=== PATIENT | female | born 1985 | race Caucasian/White ===

== ENCOUNTER 2019-05-19 09:50 | Emergency (ER) | payer BC ==
[~2019-05-19] VITALS: Ht 162.6 cm; Wt 65.8 kg
[2019-05-19 10:36] VITALS: BP 145/90
[2019-05-19] MEDS ORDERED: LIDOCAINE WITH 8.4% SOD BICARB 3 ML DISP.SYRIN. INJ ONE (11:00)
[2019-05-19] MEDS ORDERED: HYDROcodone/APAP 5/325MG 1 TAB TABLET PO ONE (11:00)
[2019-05-19] MEDS ORDERED: DIPHTH,PERTUSS(ACELL),TET TOX 0.5 ML DISP.SYRIN. VAX IM ONE (11:00)
[2019-05-19] MEDS ORDERED: HYDR-3164 PO (11:57)
[2019-05-19] MEDS ORDERED: SULF1TAB24 PO (11:57)
--- NOTE | 2019-05-19 11:57 | PHYS DOC ---
Past Medical History Past Medical History: No Pertinent History Past Surgical History: Cholecystectomy Alcohol Use: None Drug Use: None Adult General Chief Complaint Chief Complaint: ABSCESS HPI HPI Patient is a 34 year old female who presents with an abscess on the left pubic region that began 2 days ago. Patient denies any fever. Review of Systems Review of Systems Constitutional: Denies fever or chills [] Musculoskeletal: Denies back pain or joint pain [] Integument: Left groin abscess Neurologic: Denies headache, focal weakness or sensory changes [] All other systems were reviewed and found to be within normal limits, except as documented in this note. Current Medications Current Medications Current Medications Medications (Trade) Dose Ordered Sig/Kwaku Start Time Stop Time Status Last Admin Dose Admin Acetaminophen/ Hydrocodone Bitart (Lortab 5/325) 2 tab 1X ONCE 05/19/19 11:00 05/19/19 11:01 DC 05/19/19 11:07 2 TAB Diphtheria/ Tetanus/Acell Pertussis (Boostrix) 0.5 ml ONCE ONCE 05/19/19 11:00 05/19/19 11:01 DC 05/19/19 11:07 0.5 ML Lidocaine/Sodium Bicarbonate (Buffered Lidocaine 1%) 3 ml 1X ONCE 05/19/19 11:00 05/19/19 11:01 DC 05/19/19 11:07 3 ML Allergies Allergies Allergies Coded Allergies Type Severity Reaction Last Updated Verified No Known Drug Allergies 05/19/19 No Physical Exam Physical Exam Constitutional: Well developed, well nourished, no acute distress, non-toxic a ppearance. [] Skin: Warm, left pubic region with an area of induration approximately 2 x 2 centimeters with surrounding approximately 2 cm of cellulitis. The area is warm tender to touch and has some fluctuance to it. Extremities: No tenderness, no cyanosis, no clubbing, ROM intact, no edema. [] Neurologic: Alert and oriented X 3, normal motor function, normal sensory function, no focal deficits noted. [] Psychologic: Affect normal, judgement normal, mood normal. [] Current Patient Data Vital Signs Vital Signs Date Time Temp Pulse Resp B/P (MAP) Pulse Ox O2 Delivery O2 Flow Rate FiO2 05/19/19 11:07 18 99 Room Air 05/19/19 10:36 98.4 79 145/90 (108) 98.4 EKG EKG [] Radiology/Procedures Radiology/Procedures Indication: abscess left pubic Procedure: The patient was positioned appropriately. Local anesthesia was 1% buffered lidocaine. An 18-gauge needle was used to aspirate the area, mild amount of yellow bloody material was drained. The drainage cavity was irrigated and covered with sterile gauze. The patient�s tetanus status updated as needed. The patient tolerated the procedure well. Complications: none.[] Course & Med Decision Making Course & Med Decision Making Pertinent Labs and Imaging studies reviewed. (See chart for details) This is a 34-year-old female patient who presents to the ED today with an abscess on the left pubic region that was drained by me as noted in procedures. Wound care instructions and return precautions provided. Discharged on Bactrim. Tetanus updated. Dragon Disclaimer Dragon Disclaimer This electronic medical record was generated, in whole or in part, using a voice recognition dictation system. Departure Departure Impression: Primary Impression: Ingrown hair Additional Impression: Abscess of pubic region Disposition: 01 HOME, SELF-CARE Condition: STABLE Referrals: CAROLYN BROWN M.D. (PCP) follow up in 1-2 weeks as needed Patient Instructions: Abscess, Care After Additional Instructions: -Your abscess was drained in the emergency room -Keep the area clean and dry -Apply warm compresses to the area twice a day -Complete your antibiotics -Follow-up with your doctor in 1-2 weeks as needed -Return to the emergency room at any point symptoms worsen Scripts Hydrocodone/Apap 5-325 (NORCO 5-325 TABLET) 1 Each Tablet 1 TAB PO Q6-8HRS PRN for PAIN MDD 8, #12 TAB Prov: DHRUV LEGGETT APRN 05/19/19 Sulfamethoxazole/Trimethoprim (BACTRIM DS TABLET) 1 Each Tablet 1 TAB PO BID, #20 TAB Prov: DHRUV LEGGETT APRN 05/19/19 Problem Qualifiers DHRUV LEGGETT APRN May 19, 2019 11:57
== END 2019-05-19 12:06 | disposition home or self-care (01) ==
LOC: ER 09:50
DX: L02.214 Cutaneous abscess of groin (principal); L73.1 Pseudofolliculitis barbae; Z90.49 Acquired absence of other specified parts of digestive tract
CPT/HCPCS: 10060; 90471; 90715; 99283

== ENCOUNTER 2019-05-26 18:52 | Inpatient (IN) | payer BC, OTHER ==
[~2019-05-26] VITALS: Ht 162.6 cm; Wt 65.8 kg
[~2019-05-26 18:52] MED LIST: HYDR-3164 PO; SULF1TAB24 PO
[2019-05-26] MEDS ORDERED: IV NORMAL SALINE 1000ML BAG 1,650 ML IV SCH (19:25)
[2019-05-26] MEDS: PIPERACILLIN/TAZOBACTAM 4.5 GM in IV NORMAL SALINE 100ML 100 ML IV ONE ×2 (19:30→20:16)
[2019-05-26] MEDS ORDERED: MORPHINE SULFATE 2 MG/ML VIAL. IV/SQ PRN (19:30)
[2019-05-26] MEDS ORDERED: VANCOMYCIN PER PHARMACY MC PRN (19:30)
[2019-05-26 19:52] LABS: BASO # 0.1 x10^3/uL (0.0-0.2); BASO % 1 % (0-3); EOS % 0 % (0-3); HEMATOCRIT 39.4 % (36.0-47.0); HEMOGLOBIN 13.7 g/dL (12.0-15.5); LYMPH # 3.9 x10^3/uL (1.0-4.8); LYMPH % 23 % (24-48); MEAN CORPUSCULAR HEMOGLOBIN 35 pg (25-35); MEAN CORPUSCULAR HGB CONC 35 g/dL (31-37); MEAN CORPUSCULAR VOLUME 99 fL (79-100); MONO % 6 % (0-9); NEUT # 11.7 x10^3/uL (1.8-7.7); NEUT % 70 % (31-73); PLATELET COUNT 362 x10^3/uL (140-400); RED BLOOD COUNT 3.98 x10^6/uL (3.50-5.40); RED CELL DISTRIBUTION WIDTH 15.6 % (11.5-14.5); WHITE BLOOD COUNT 16.8 x10^3/uL (4.0-11.0)
[2019-05-26 20:05] LABS: ALBUMIN/GLOBULIN RATIO 0.9 (1.0-1.7); CALCIUM 9.4 mg/dL (8.5-10.1); CREATININE 0.9 mg/dL (0.6-1.0); GFR 71.3; TOTAL BILIRUBIN 0.4 mg/dL (0.2-1.0); TOTAL PROTEIN 8.5 g/dL (6.4-8.2)
[2019-05-26 20:07] LABS: POTASSIUM 2.8 mmol/L (3.5-5.1)
[2019-05-26] MEDS ORDERED: VANCOMYCIN 1.5 GM in IV NORMAL SALINE 500ML BAG 500 ML IV ONE (20:15)
[2019-05-26] MEDS ORDERED: POTASSIUM CHLORIDE 20 MEQ TABLET.ER. PO ONE (20:15)
[2019-05-26] MEDS ORDERED: ONDANSETRON PF 4 MG/2 ML VIAL. IV PRN (22:00)
[2019-05-26] MEDS ORDERED: ACETAMINOPHEN 325 MG TABLET. PO PRN (22:00)
--- NOTE | 2019-05-26 22:04 | PHYS DOC ---
Past Medical History Past Medical History: No Pertinent History Past Surgical History: Cholecystectomy Alcohol Use: None Drug Use: None Adult General Chief Complaint Chief Complaint: ABSCESS HPI HPI Patient is a 34 year old female who presents to the ED today with a worsening left groin abscess. Patient was seen in the ED a week ago the left groin abscess was drained, she was sent home on Bactrim she states the abscess has gotten worse. Denies any fever, n/v. Review of Systems Review of Systems Constitutional: Denies fever or chills [] Eyes: Denies change in visual acuity, redness, or eye pain [] HENT: Denies nasal congestion or sore throat [] Respiratory: Denies cough or shortness of breath [] Cardiovascular: No additional information not addressed in HPI [] GI: Denies abdominal pain, nausea, vomiting, bloody stools or diarrhea [] : Denies dysuria or hematuria [] Musculoskeletal: Denies back pain or joint pain [] Integument: Reports left groin abscess Neurologic: Denies headache, focal weakness or sensory changes [] All other systems were reviewed and found to be within normal limits, except as documented in this note. Current Medications Current Medications Current Medications Medications (Trade) Dose Ordered Sig/Kwaku Start Time Stop Time Status Last Admin Dose Admin Levofloxacin/ Dextrose 100 ml @ 100 mls/hr 1X ONCE 05/26/19 20:30 05/26/19 21:29 DC 05/26/19 20:37 100 MLS/HR Morphine Sulfate (Morphine Sulfate) 2 mg PRN Q15MIN PRN 05/26/19 19:30 05/27/19 19:29 05/26/19 20:18 2 MG Piperacillin Sod/ Tazobactam Sod 4.5 gm/Sodium Chloride 100 ml @ 200 mls/hr 1X ONCE 05/26/19 19:30 05/26/19 19:59 DC Potassium Chloride (Klor-Con) 40 meq 1X ONCE 05/26/19 20:15 05/26/19 20:16 DC 05/26/19 20:17 40 MEQ Sodium Chloride 1,650 ml @ 1,650 mls/hr Q1H 05/26/19 19:25 05/26/19 20:24 DC 05/26/19 20:17 1,650 MLS/HR Vancomycin HCl (Vanco Per Pharmacy) 1 each PRN DAILY PRN 05/26/19 19:30 Vancomycin HCl 1.5 gm/Sodium Chloride 500 ml @ 250 mls/hr 1X ONCE 05/26/19 20:15 05/26/19 22:14 05/26/19 21:45 250 MLS/HR Allergies Allergies Allergies Coded Allergies Type Severity Reaction Last Updated Verified Corticosteroids (Glucocorticoids) Allergy Severe facial swelling 05/26/19 Yes Penicillins Allergy Intermediate hives 05/26/19 Yes Physical Exam Physical Exam Constitutional: Well developed, well nourished, no acute distress, non-toxic appearance. [] HENT: Normocephalic, atraumatic, bilateral external ears normal, oropharynx moist, no oral exudates, nose normal. [] Eyes: PERRLA, EOMI, conjunctiva normal, no discharge. [] Neck: Normal range of motion, no tenderness, supple, no stridor. [] Cardiovascular:Heart rate regular rhythm, no murmur [] Lungs & Thorax: Bilateral breath sounds clear to auscultation [] Abdomen: Bowel sounds normal, soft, no tenderness, no masses, no pulsatile masses. [] Skin: Left groin with an area of induration and moderate cellulitis. The area is warm tender to touch. There is moderate erythema throughout this region with tenderness and some fluctuance. This abscess looks worse than it was when patient was here a week ago. Back: No tenderness, no CVA tenderness. [] Extremities: No tenderness, no cyanosis, no clubbing, ROM intact, no edema. [] Neurologic: Alert and oriented X 3, normal motor function, normal sensory function, no focal deficits noted. [] Psychologic: Affect normal, judgement normal, mood normal. [] Current Patient Data Vital Signs Vital Signs Date Time Temp Pulse Resp B/P (MAP) Pulse Ox O2 Delivery O2 Flow Rate FiO2 05/26/19 20:46 73 181/99 (126) 100 Room Air 05/26/19 19:00 98.0 18 98.0 Lab Values Laboratory Tests Test 05/26/19 19:40 White Blood Count 16.8 x10^3/uL (4.0-11.0) H Red Blood Count 3.98 x10^6/uL (3.50-5.40) Hemoglobin 13.7 g/dL (12.0-15.5) Hematocrit 39.4 % (36.0-47.0) Mean Corpuscular Volume 99 fL (79-100) Mean Corpuscular Hemoglobin 35 pg (25-35) Mean Corpuscular Hemoglobin Concent 35 g/dL (31-37) Red Cell Distribution Width 15.6 % (11.5-14.5) H Platelet Count 362 x10^3/uL (140-400) Neutrophils (%) (Auto) 70 % (31-73) Lymphocytes (%) (Auto) 23 % (24-48) L Monocytes (%) (Auto) 6 % (0-9) Eosinophils (%) (Auto) 0 % (0-3) Basophils (%) (Auto) 1 % (0-3) Neutrophils # (Auto) 11.7 x10^3/uL (1.8-7.7) H Lymphocytes # (Auto) 3.9 x10^3/uL (1.0-4.8) Monocytes # (Auto) 1.0 x10^3/uL (0.0-1.1) Eosinophils # (Auto) 0.0 x10^3/uL (0.0-0.7) Basophils # (Auto) 0.1 x10^3/uL (0.0-0.2) Sodium Level 137 mmol/L (136-145) Potassium Level 2.8 mmol/L (3.5-5.1) *L Chloride Level 95 mmol/L (98-107) L Carbon Dioxide Level 30 mmol/L (21-32) Anion Gap 12 (6-14) Blood Urea Nitrogen 4 mg/dL (7-20) L Creatinine 0.9 mg/dL (0.6-1.0) Estimated GFR (Cockcroft-Gault) 71.3 BUN/Creatinine Ratio 4 (6-20) L Glucose Level 83 mg/dL (70-99) Lactic Acid Level 1.5 mmol/L (0.4-2.0) Calcium Level 9.4 mg/dL (8.5-10.1) Total Bilirubin 0.4 mg/dL (0.2-1.0) Aspartate Amino Transferase (AST) 34 U/L (15-37) Alanine Aminotransferase (ALT) 33 U/L (14-59) Alkaline Phosphatase 61 U/L (46-116) Total Protein 8.5 g/dL (6.4-8.2) H Albumin 4.0 g/dL (3.4-5.0) Albumin/Globulin Ratio 0.9 (1.0-1.7) L Procalcitonin < 0.10 ng/mL (0.00-0.10) Laboratory Tests 05/26/19 19:40 Laboratory Tests 05/26/19 19:40 EKG EKG [] Radiology/Procedures Radiology/Procedures [] Course & Med Decision Making Course & Med Decision Making Pertinent Labs and Imaging studies reviewed. (See chart for details) This is a 34-year-old female patient who presents to the ED today with worsening abscess with cellulitis to the left groin region. Patient was seen a week ago. We had sent her home with Bactrim- she presents today with worsening infection. She is afebrile. CBC with a WBC of 16.8, CMP with potassium of 2.8. Patient was given oral potassium replacement and started on IV normal saline with [address] Lopez who accepted patient for admission Routine consult placed for infectious disease and Gen. surgery Dragon Disclaimer Dragon Disclaimer This electronic medical record was generated, in whole or in part, using a voice recognition dictation system. Departure Departure Impression: Primary Impression: Abscess of left groin Additional Impressions: Leukocytosis Cellulitis of left groin Disposition: 09 ADMITTED INPATIENT Condition: STABLE Referrals: CAROLYN BROWN M.D. (PCP) Problem Qualifiers Additional Impressions: Leukocytosis Leukocytosis type: unspecified Qualified Codes: D72.829 - Elevated white blood cell count, unspecified DHRUV LEGGETT APRN May 26, 2019 22:04
[2019-05-26] MEDS: MORPHINE SULFATE 4 MG/ML VIAL. IV PRN (22:43)
--- NOTE | 2019-05-26 22:45 | NUR ---
ADMIT NOTE The patient, GENEVIEVE ALANIZ, 34 y/o, F admitted by MYA CASTELLON MD, was given written information regarding hospital policies, unit procedures and contact persons. Patient's afebrile and VSS with severe complaints of pain upon admission. Patient orientated to room, admission assessment complete, admit packet reviewed and plan of care discussed. Patient valuables were checked and left in room. Patient in bed, call light within reach and will continue to monitor.
[2019-05-26 23:00] VITALS: BP 149/96
--- NOTE | 2019-05-26 23:13 | NUR ---
Pharmacy Vancomycin Dosing Note S:Consulted to monitor and dose vancomycin started 05/26/19. O:GENEVIEVE ALANIZ is a 34 year old F with Abscess . Height: 5 feet, 4 inches Weight: 65.918587 kg [place] Body Weight: 54.70 Adjusted Body Weight: 58.82 Dosing Weight: Actual Other Antibiotics: LABS: Last BUN: 4 Last Creatinine: 0.9 Creatinine Clearance: 81 mL/min Last WBC: 16.8 Last Procalcitonin: <0.1 Tmax (past 24 hours): Microbiology: I/O: Drug Levels: Last level: on at Last dose given 05/26/19 at 2200 Vancomycin Dosing: Loading Dose: 1500 mg x1 Dosing Weight: Actual Target Trough: 10-20 A: Based on: WT AND CRCL P: 1. Begin Vancomycin 1000 mg IV q12h 2. Follow up Trough level on 05/28/19 at 0930 3. Pharmacy will continue to monitor, follow and adjust therapy as needed. MAURICIO NASH RPH, 05/26/193 Signed: 05/26/19 at 2313 by MAURICIO NASH RPH PHA
[2019-05-27] MEDS ORDERED: PROCHLORPERAZINE 10 MG/2 ML VIAL. IV PRN ×2 (00:30→14:00)
[2019-05-27 03:00] VITALS: BP 103/68
[2019-05-27] MEDS: MORPHINE SULFATE 4 MG/ML VIAL. IV PRN ×5 (03:20→17:01)
[2019-05-27 03:52] LABS: BASO % 0 % (0-3); EOS # 0.1 x10^3/uL (0.0-0.7); EOS % 0 % (0-3); HEMATOCRIT 37.1 % (36.0-47.0); HEMOGLOBIN 12.6 g/dL (12.0-15.5); LYMPH # 2.9 x10^3/uL (1.0-4.8); LYMPH % 20 % (24-48); MEAN CORPUSCULAR HEMOGLOBIN 34 pg (25-35); MEAN CORPUSCULAR HGB CONC 34 g/dL (31-37); MEAN CORPUSCULAR VOLUME 101 fL (79-100); MONO # 1.1 x10^3/uL (0.0-1.1); MONO % 8 % (0-9); NEUT # 10.3 x10^3/uL (1.8-7.7); NEUT % 72 % (31-73); PLATELET COUNT 329 x10^3/uL (140-400); RED BLOOD COUNT 3.67 x10^6/uL (3.50-5.40); RED CELL DISTRIBUTION WIDTH 15.6 % (11.5-14.5); WHITE BLOOD COUNT 14.4 x10^3/uL (4.0-11.0)
[2019-05-27 04:11] LABS: ALBUMIN 3.1 g/dL (3.4-5.0); ALBUMIN/GLOBULIN RATIO 0.8 (1.0-1.7); CALCIUM 8.4 mg/dL (8.5-10.1); CREATININE 0.8 mg/dL (0.6-1.0); GFR 81.6; POTASSIUM 3.7 mmol/L (3.5-5.1); TOTAL BILIRUBIN 0.6 mg/dL (0.2-1.0)
[2019-05-27 07:00] VITALS: BP 121/81
--- NOTE | 2019-05-27 08:01 | PDOC1 ---
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 She was seen and treated in the ED 1 weeks ago for this and found to have an abscess, had an I&D, the left groin abscess was drained, she was sent home on Bactrim she states the abscess has gotten worse since then and has has worsening pain that is interfering with her ability to work. Denies any fever, n/v. Some chills and she notes the groin mass has hardened and has red streaking. No STI risk factors. She has used a razor for shaving, feels this may have been the nidus. Incidentally was found with potassium level of 2.7 and elevated WBC. She is susan ng admitted for further workup and treatment and failure of outpatient therapy. Of note she had ampicillin reaction when she was 10 years old and has PCN allergy documented, however has had augmentin on multiple occasions with no adverse effects. Past Medical History Cardiovascular: No pertinent hx Pulmonary: No pertinent hx GI: No pertinent hx Heme/Onc: No pertinent hx Hepatobiliary: No pertinent hx Psych: No pertinent hx Rheumatologic: No pertinent hx Infectious disease: No pertinent hx ENT: No pertinent hx Renal/: No pertinent hx Endocrine: No pertinent hx Dermatology: No pertinent hx Past Surgical History Past Surgical History: Cholecystectomy, Other (Right ankle tendon replacement) Family History Family History: Family History Unknown Social History Smoke: No ALCOHOL: rare Drugs: None Current Problem List Problem List Problems Medical Problems: (1) Cellulitis of left groin Status: Acute Current Medications Current Medications Current Medications Sodium Chloride 1,650 ml @ 1,650 mls/hr Q1H IV Last administered on 05/26/19at 20:17; Start 05/26/19 at 19:25; Stop 05/26/19 at 20:24; Status DC Piperacillin Sod/ Tazobactam Sod 4.5 gm/Sodium Chloride 100 ml @ 200 mls/hr 1X ONCE IV ; Start 05/26/19 at 19:30; Stop 05/26/19 at 19:59; Status DC Vancomycin HCl (Vanco Per Pharmacy) 1 each PRN DAILY PRN MC SEE COMMENTS Last administered on 05/26/19at 23:13; Start 05/26/19 at 19:30 Morphine Sulfate (Morphine Sulfate) 2 mg PRN Q15MIN PRN IV/SQ PAIN GREATER THAN 3/10 Last administered on 05/26/19at 20:18; Start 05/26/19 at 19:30; Stop 05/27/19 at 19:29 Potassium Chloride (Klor-Con) 40 meq 1X ONCE PO Last administered on 05/26/19at 20:17; Start 05/26/19 at 20:15; Stop 05/26/19 at 20:16; Status DC Vancomycin HCl 1.5 gm/Sodium Chloride 500 ml @ 250 mls/hr 1X ONCE IV Last administered on 05/26/19at 21:45; Start 05/26/19 at 20:15; Stop 05/26/19 at 22:14; Status DC Levofloxacin/ Dextrose 100 ml @ 100 mls/hr 1X ONCE IV Last administered on 05/26/19at 20:37; Start 05/26/19 at 20:30; Stop 05/26/19 at 21:29; Status DC Ondansetron HCl (Zofran) 4 mg PRN Q8HRS PRN IV NAUSEA/VOMITING 1ST CHOICE Last administered on 05/26/19at 22:38; Start 05/26/19 at 22:00; Stop 05/27/19 at 21:59 Morphine Sulfate (Morphine Sulfate) 4 mg PRN Q2HR PRN IV SEVERE PAIN 7-10 Last administered on 05/27/19at 07:42; Start 05/26/19 at 22:00; Stop 05/27/19 at 21:59 Acetaminophen (Tylenol) 650 mg PRN Q4HRS PRN PO FEVER; Start 05/26/19 at 22:00; Stop 05/27/19 at 21:59 Potassium Chloride/Sodium Chloride 1,000 ml @ 75 mls/hr [id number] IV Last administered on 05/26/19at 22:38; Start 05/26/19 at 23:00 Vancomycin HCl 1 gm/Sodium Chloride 250 ml @ 250 mls/hr Q12H IV ; Start 05/27/19 at 10:00 Vancomycin HCl (Vancomycin Trough Level) 1 each 1X ONCE MC ; Start 05/28/19 at 09:30; Stop 05/28/19 at 09:31 Prochlorperazine Edisylate (Compazine) 10 mg PRN Q6HRS PRN IV NAUSEA/VOMITING Last administered on 05/27/19at 00:29; Start 05/27/19 at 00:30 Active Scripts Active Reardan 5-325 Tablet (Acetaminophen/Hydrocodone Bitart) 1 Each Tablet 1 Tab PO Q6- 8HRS PRN MDD 8 Bactrim Ds Tablet (Sulfamethoxazole/Trimethoprim) 1 Each Tablet 1 Tab PO BID Allergies Allergies: Coded Allergies: Corticosteroids (Glucocorticoids) (Verified Allergy, Severe, facial swelling, 05/26/19) Penicillins (Verified Allergy, Intermediate, hives, 05/26/19) ROS General: YES: Chills, Fatigue, Malaise; No: Night Sweats, Appetite, Other PSYCHOLOGICAL ROS: No: Anxiety, Behavioral Disorder, Concentration difficultie, Decreased libido, Depression, Disorientation, Hallucinations, Hostility, Irritablity, Memory difficulties, Mood Swings, Obsessive thoughts, Physical abuse, Sexual abuse, Sleep disturbances, Suicidal ideation, Other Eyes: No Blurry vision, No Decreased vision, No Double vision, No Dry eyes, No Excessive tearing, No Eye Pain, No Itchy Eyes, No Loss of vision, No Photophobia, No Scotomata, No Uses contacts, No Uses glasses, No Other HEENT: No: Heacaches, Visual Changes, Hearing change, Nasal congestion, Nasal discharge, Oral lesions, Sinus pain, Sore Throat, Epistaxis, Sneezing, Snoring, Tinnitus, Vertigo, Vocal changes, Other ALLERGY AND IMMUNOLOGY: No: Hives, Insect Bite Sensitivity, Itchy/Watery Eyes, Nasal Congestion, Post Nasal Drip, Seasonal Allergies, Other Hematological and Lymphatic: No: Bleeding Problems, Blood Clots, Blood Transfusions, Brusing, Night Sweats, Pallor, Swollen Lymph Nodes, Other ENDOCRINE: No: Breast Changes, Galactorrhea, Hair Pattern Changes, Hot Flashes, Malaise/lethargy, Mood Swings, Palpitations, Polydipsia/polyuria, Skin Changes, Temperature Intolerance, Unexpected Weight Changes, Other Breast: No New/Changing Breast Lumps, No Nipple changes, No Nipple discharge, No Other Respiratory: No: Cough, Hemoptysis, Orthopnea, Pleuritic Pain, Shortness of breath, SOB with excertion, Sputum Changes, Stridor, Tachypnea, Wheezing, Other Cardiovascular: No Chest Pain, No Palpitations, No Orthopnea, No Paroxysmal Noc. Dyspnea, No Edema, No Lt Headedness, No Other Gastrointestinal: Yes Nausea; No Vomiting, No Abdominal Pain, No Diarrhea, No Constipation, No Melena, No Hematochezia, No Other Genitourinary: No Dysuria, No Frequency, No Incontinence, No Hematuria, No Retention, No Discharge, No Urgency, No Pain, No Flank Pain, No Other, No , No , No , No , No , No , No Musculoskeletal: No Gait Disturbance, No Joint Pain, No Joint Stiffness, No Joint Swelling, No Muscle Pain, No Muscular Weakness, No Pain In:, No Swelling In:, No Other Neurological: No Behavorial Changes, No Bowel/Bladder ControlChng, No Confusion, No Dizziness, No Gait Disturbance, No Headaches, No Impaired Coord/balance, No Memory Loss, No Numbness/Tingling, No Seizures, No Speech Problems, No Tremors, No Visual Changes, No Weakness, No Other Skin: Yes Lumps, Yes Rash, Yes Other (Large fluctuant left groin mass); No Dry Skin, No Eczema, No Hair Changes, No Mole Changes, No Mottling, No Nail Changes, No Pruritus, No Skin Lesion Changes, No Acne Physical Exam General: Alert, Oriented X3, Cooperative, No acute distress HEENT: Atraumatic, PERRLA, EOMI, Mucous membr. moist/pink Lungs: Clear to auscultation, Normal air movement Heart: S1S2, RRR, no gallops, no murmurs Abdomen: Normal bowel sounds, Soft, No tenderness, No hepatosplenomegaly, No masses Rectal Exam: not examined PELVIC: Nml ext genitalia, Nml ext vulva, Nml ext vagina Extremities: No clubbing, No cyanosis, No edema, Normal pulses Skin: Other (Left groin lymphadenpathy, 2x4 fluctuant mass with central necrosis and 6x8cm surrounding erythema) Neuro: Normal gait, Normal speech, Strength at 5/5 X4 ext, Normal tone, Sensation intact, Cranial nerves 3-12 NL, Reflexes 2+ Psych/Mental Status: Mental status NL, Mood NL Vitals Vitals Vital Signs Date Time Temp Pulse Resp B/P (MAP) Pulse Ox O2 Delivery O2 Flow Rate FiO2 05/27/19 07:42 Room Air 05/27/19 03:20 16 05/27/19 03:00 98.1 73 103/68 (80) 96 98.1 Labs Labs Laboratory Tests Test 05/26/19 19:40 05/27/19 03:15 White Blood Count 16.8 x10^3/uL (4.0-11.0) 14.4 x10^3/uL (4.0-11.0) Red Blood Count 3.98 x10^6/uL (3.50-5.40) 3.67 x10^6/uL (3.50-5.40) Hemoglobin 13.7 g/dL (12.0-15.5) 12.6 g/dL (12.0-15.5) Hematocrit 39.4 % (36.0-47.0) 37.1 % (36.0-47.0) Mean Corpuscular Volume 99 fL (79-100) 101 fL (79-100) Mean Corpuscular Hemoglobin 35 pg (25-35) 34 pg (25-35) Mean Corpuscular Hemoglobin Concent 35 g/dL (31-37) 34 g/dL (31-37) Red Cell Distribution Width 15.6 % (11.5-14.5) 15.6 % (11.5-14.5) Platelet Count 362 x10^3/uL (140-400) 329 x10^3/uL (140-400) Neutrophils (%) (Auto) 70 % (31-73) 72 % (31-73) Lymphocytes (%) (Auto) 23 % (24-48) 20 % (24-48) Monocytes (%) (Auto) 6 % (0-9) 8 % (0-9) Eosinophils (%) (Auto) 0 % (0-3) 0 % (0-3) Basophils (%) (Auto) 1 % (0-3) 0 % (0-3) Neutrophils # (Auto) 11.7 x10^3/uL (1.8-7.7) 10.3 x10^3/uL (1.8-7.7) Lymphocytes # (Auto) 3.9 x10^3/uL (1.0-4.8) 2.9 x10^3/uL (1.0-4.8) Monocytes # (Auto) 1.0 x10^3/uL (0.0-1.1) 1.1 x10^3/uL (0.0-1.1) Eosinophils # (Auto) 0.0 x10^3/uL (0.0-0.7) 0.1 x10^3/uL (0.0-0.7) Basophils # (Auto) 0.1 x10^3/uL (0.0-0.2) 0.0 x10^3/uL (0.0-0.2) Sodium Level 137 mmol/L (136-145) 144 mmol/L (136-145) Potassium Level 2.8 mmol/L (3.5-5.1) 3.7 mmol/L (3.5-5.1) Chloride Level 95 mmol/L (98-107) 105 mmol/L (98-107) Carbon Dioxide Level 30 mmol/L (21-32) 30 mmol/L (21-32) Anion Gap 12 (6-14) 9 (6-14) Blood Urea Nitrogen 4 mg/dL (7-20) 3 mg/dL (7-20) Creatinine 0.9 mg/dL (0.6-1.0) 0.8 mg/dL (0.6-1.0) Estimated GFR (Cockcroft-Gault) 71.3 81.6 BUN/Creatinine Ratio 4 (6-20) 4 (6-20) Glucose Level 83 mg/dL (70-99) 90 mg/dL (70-99) Lactic Acid Level 1.5 mmol/L (0.4-2.0) Calcium Level 9.4 mg/dL (8.5-10.1) 8.4 mg/dL (8.5-10.1) Total Bilirubin 0.4 mg/dL (0.2-1.0) 0.6 mg/dL (0.2-1.0) Aspartate Amino Transf (AST/SGOT) 34 U/L (15-37) 25 U/L (15-37) Alanine Aminotransferase (ALT/SGPT) 33 U/L (14-59) 24 U/L (14-59) Alkaline Phosphatase 61 U/L (46-116) 52 U/L (46-116) Total Protein 8.5 g/dL (6.4-8.2) 7.0 g/dL (6.4-8.2) Albumin 4.0 g/dL (3.4-5.0) 3.1 g/dL (3.4-5.0) Albumin/Globulin Ratio 0.9 (1.0-1.7) 0.8 (1.0-1.7) Procalcitonin < 0.10 ng/mL (0.00-0.10) Laboratory Tests Test 05/26/19 19:40 05/27/19 03:15 White Blood Count 16.8 x10^3/uL (4.0-11.0) 14.4 x10^3/uL (4.0-11.0) Red Blood Count 3.98 x10^6/uL (3.50-5.40) 3.67 x10^6/uL (3.50-5.40) Hemoglobin 13.7 g/dL (12.0-15.5) 12.6 g/dL (12.0-15.5) Hematocrit 39.4 % (36.0-47.0) 37.1 % (36.0-47.0) Mean Corpuscular Volume 99 fL (79-100) 101 fL (79-100) Mean Corpuscular Hemoglobin 35 pg (25-35) 34 pg (25-35) Mean Corpuscular Hemoglobin Concent 35 g/dL (31-37) 34 g/dL (31-37) Red Cell Distribution Width 15.6 % (11.5-14.5) 15.6 % (11.5-14.5) Platelet Count 362 x10^3/uL (140-400) 329 x10^3/uL (140-400) Neutrophils (%) (Auto) 70 % (31-73) 72 % (31-73) Lymphocytes (%) (Auto) 23 % (24-48) 20 % (24-48) Monocytes (%) (Auto) 6 % (0-9) 8 % (0-9) Eosinophils (%) (Auto) 0 % (0-3) 0 % (0-3) Basophils (%) (Auto) 1 % (0-3) 0 % (0-3) Neutrophils # (Auto) 11.7 x10^3/uL (1.8-7.7) 10.3 x10^3/uL (1.8-7.7) Lymphocytes # (Auto) 3.9 x10^3/uL (1.0-4.8) 2.9 x10^3/uL (1.0-4.8) Monocytes # (Auto) 1.0 x10^3/uL (0.0-1.1) 1.1 x10^3/uL (0.0-1.1) Eosinophils # (Auto) 0.0 x10^3/uL (0.0-0.7) 0.1 x10^3/uL (0.0-0.7) Basophils # (Auto) 0.1 x10^3/uL (0.0-0.2) 0.0 x10^3/uL (0.0-0.2) Sodium Level 137 mmol/L (136-145) 144 mmol/L (136-145) Potassium Level 2.8 mmol/L (3.5-5.1) 3.7 mmol/L (3.5-5.1) Chloride Level 95 mmol/L (98-107) 105 mmol/L (98-107) Carbon Dioxide Level 30 mmol/L (21-32) 30 mmol/L (21-32) Anion Gap 12 (6-14) 9 (6-14) Blood Urea Nitrogen 4 mg/dL (7-20) 3 mg/dL (7-20) Creatinine 0.9 mg/dL (0.6-1.0) 0.8 mg/dL (0.6-1.0) Estimated GFR (Cockcroft-Gault) 71.3 81.6 BUN/Creatinine Ratio 4 (6-20) 4 (6-20) Glucose Level 83 mg/dL (70-99) 90 mg/dL (70-99) Lactic Acid Level 1.5 mmol/L (0.4-2.0) Calcium Level 9.4 mg/dL (8.5-10.1) 8.4 mg/dL (8.5-10.1) Total Bilirubin 0.4 mg/dL (0.2-1.0) 0.6 mg/dL (0.2-1.0) Aspartate Amino Transf (AST/SGOT) 34 U/L (15-37) 25 U/L (15-37) Alanine Aminotransferase (ALT/SGPT) 33 U/L (14-59) 24 U/L (14-59) Alkaline Phosphatase 61 U/L (46-116) 52 U/L (46-116) Total Protein 8.5 g/dL (6.4-8.2) 7.0 g/dL (6.4-8.2) Albumin 4.0 g/dL (3.4-5.0) 3.1 g/dL (3.4-5.0) Albumin/Globulin Ratio 0.9 (1.0-1.7) 0.8 (1.0-1.7) Procalcitonin < 0.10 ng/mL (0.00-0.10) VTE Prophylaxis Ordered VTE Prophylaxis Devices: No VTE Pharmacological Prophylaxi: No Assessment/Plan Assessment/Plan A/P: Left groin cellulitis and abscess - s/p I&D and failed outpatient therapy. 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 Will add zosyn. Screen for MRSA in nares, will likely be able to d/c on zyvox. Her celexa is low dose Hypokalemia - symptomatically weak, required IV replacement and PO replacement, will check mag level as well Leukocytosis - no other SIRS criteria. This is likely 2/2 her cellulitis and abscess H/o underweight - taking celexa and amitryptiline outpatient for weight gain FEN - NPO PPX - Ambulatory, low risk VTE FULL CODE Dispo - inpatient for groin abscess MARIA TERESA ERICKSON MD May 27, 2019 08:01
[2019-05-27] MEDS ORDERED: ONDANSETRON PF 4 MG/2 ML VIAL. IV PRN ×2 (08:45→14:00)
[2019-05-27] MEDS ORDERED: AMIT10TA PO (08:56)
[2019-05-27] MEDS: KETOROLAC 30 MG/ML VIAL. IV PRN ×2 (08:56→18:00)
[2019-05-27] MEDS ORDERED: CITA20TA9 PO (08:56)
[2019-05-27] MEDS ORDERED: FENO145T30 PO (08:56)
[2019-05-27] MEDS ORDERED: PIPERACILLIN/TAZOBACTAM 3.375 GM in IV NORMAL SALINE 50ML 50 ML IV SCH (09:00)
[2019-05-27] MEDS ORDERED: MAGNESIUM SULFATE 2GM 50 ML IV ONE (09:00)
--- NOTE | 2019-05-27 09:34 | PDOC2 ---
CONSULT Date of Consult Date of Consult DATE: 05/27/19 TIME: 09:30 Reason for Consult Reason for Consult: left groin abscess Referring Physician Referring Physician: Dr. Alba Identification/Chief Complaint Chief Complaint left groin pain Source Source: Chart review, Patient History of Present Illness Reason for Visit: 34 yo F with c/o Left groin abscess. I and D one week ago in ER, but has worsened since then. She worked yesterday, but pain increased prompting admission. Past Medical History Cardiovascular: No pertinent hx Pulmonary: No pertinent hx GI: No pertinent hx Heme/Onc: No pertinent hx Hepatobiliary: No pertinent hx Psych: No pertinent hx Rheumatologic: No pertinent hx Infectious disease: No pertinent hx ENT: No pertinent hx Renal/: No pertinent hx Endocrine: No pertinent hx Dermatology: No pertinent hx Past Surgical History Past Surgical History: Cholecystectomy, Other (Right ankle tendon replacement) Family History Family History: Family History Unknown Social History No ALCOHOL: rare Drugs: None Current Problem List Problem List Problems Medical Problems: (1) Cellulitis of left groin Status: Acute Current Medications Current Medications Current Medications Sodium Chloride 1,650 ml @ 1,650 mls/hr Q1H IV Last administered on 05/26/19at 20:17; Start 05/26/19 at 19:25; Stop 05/26/19 at 20:24; Status DC Piperacillin Sod/ Tazobactam Sod 4.5 gm/Sodium Chloride 100 ml @ 200 mls/hr 1X ONCE IV ; Start 05/26/19 at 19:30; Stop 05/26/19 at 19:59; Status DC Vancomycin HCl (Vanco Per Pharmacy) 1 each PRN DAILY PRN MC SEE COMMENTS Last administered on 05/26/19at 23:13; Start 05/26/19 at 19:30 Morphine Sulfate (Morphine Sulfate) 2 mg PRN Q15MIN PRN IV/SQ PAIN GREATER THAN 3/10 Last administered on 05/26/19at 20:18; Start 05/26/19 at 19:30; Stop 05/27/19 at 19:29 Potassium Chloride (Klor-Con) 40 meq 1X ONCE PO Last administered on 05/26/19at 20:17; Start 05/26/19 at 20:15; Stop 05/26/19 at 20:16; Status DC Vancomycin HCl 1.5 gm/Sodium Chloride 500 ml @ 250 mls/hr 1X ONCE IV Last administered on 05/26/19at 21:45; Start 05/26/19 at 20:15; Stop 05/26/19 at 22:14; Status DC Levofloxacin/ Dextrose 100 ml @ 100 mls/hr 1X ONCE IV Last administered on 05/26/19at 20:37; Start 05/26/19 at 20:30; Stop 05/26/19 at 21:29; Status DC Ondansetron HCl (Zofran) 4 mg PRN Q8HRS PRN IV NAUSEA/VOMITING 1ST CHOICE Last administered on 05/26/19at 22:38; Start 05/26/19 at 22:00; Stop 05/27/19 at 08:46; Status DC Morphine Sulfate (Morphine Sulfate) 4 mg PRN Q2HR PRN IV SEVERE PAIN 7-10 Last administered on 05/27/19at 07:42; Start 05/26/19 at 22:00 Acetaminophen (Tylenol) 650 mg PRN Q4HRS PRN PO FEVER; Start 05/26/19 at 22:00; Stop 05/27/19 at 21:59 Potassium Chloride/Sodium Chloride 1,000 ml @ 75 mls/hr [id number] IV Last administered on 05/26/19at 22:38; Start 05/26/19 at 23:00 Vancomycin HCl 1 gm/Sodium Chloride 250 ml @ 250 mls/hr Q12H IV ; Start 05/27/19 at 10:00 Vancomycin HCl (Vancomycin Trough Level) 1 each 1X ONCE MC ; Start 05/28/19 at 09:30; Stop 05/28/19 at 09:31 Prochlorperazine Edisylate (Compazine) 10 mg PRN Q6HRS PRN IV NAUSEA/VOMITING Last administered on 05/27/19at 00:29; Start 05/27/19 at 00:30 Piperacillin Sod/ Tazobactam Sod 3.375 gm/Sodium Chloride 50 ml @ 100 mls/hr Q6HRS IV Last administered on 05/27/19at 09:28; Start 05/27/19 at 09:00 Ketorolac Tromethamine (Toradol 30mg Vial) 30 mg PRN Q6HRS PRN IV PAIN Last administered on 05/27/19at 08:56; Start 05/27/19 at 08:45; Stop 06/01/19 at 08:44 Ondansetron HCl (Zofran) 4 mg PRN Q6HRS PRN IV NAUSEA/VOMITING 1ST CHOICE; Start 05/27/19 at 08:45 Amitriptyline HCl (Elavil) 10 mg QHS PO ; Start 05/27/19 at 21:00 Citalopram Hydrobromide (CeleXA) 20 mg QHS PO ; Start 05/27/19 at 21:00 Fenofibrate (Lofibra) 134 mg QHS PO ; Start 05/28/19 at 21:00 Magnesium Sulfate 50 ml @ 25 mls/hr 1X ONCE IV ; Start 05/27/19 at 09:00; Stop 05/27/19 at 10:59 Active Scripts Active Fenofibrate (Fenofibrate Nanocrystallized) 145 Mg Tablet 1 Tab PO QHS Amitriptyline Hcl 10 Mg Tablet 1 Tab PO QHS 90 Days Celexa (Citalopram Hydrobromide) 20 Mg Tablet 1 Tab PO QHS Allergies Allergies: Coded Allergies: Corticosteroids (Glucocorticoids) (Verified Allergy, Severe, facial swelling, 05/26/19) Penicillins (Verified Allergy, Intermediate, hives, 05/26/19) ROS Skin: Yes Other (pain) Physical Exam General: Alert, Oriented X3, Cooperative, moderate distress HEENT: Atraumatic Lungs: Normal air movement Abdomen: Soft, No tenderness, Other (left groin fluctuance and erythema, no chula inage, some necrotic skin) Neuro: Normal speech, Sensation intact Psych/Mental Status: Mental status NL, Mood NL Vitals VITALS Vital Signs Date Time Temp Pulse Resp B/P (MAP) Pulse Ox O2 Delivery O2 Flow Rate FiO2 05/27/19 08:47 Room Air 05/27/19 07:00 97.7 63 20 121/81 (94) 99 97.7 Labs Labs Laboratory Tests Test 05/26/19 19:40 05/27/19 03:15 White Blood Count 16.8 x10^3/uL (4.0-11.0) 14.4 x10^3/uL (4.0-11.0) Red Blood Count 3.98 x10^6/uL (3.50-5.40) 3.67 x10^6/uL (3.50-5.40) Hemoglobin 13.7 g/dL (12.0-15.5) 12.6 g/dL (12.0-15.5) Hematocrit 39.4 % (36.0-47.0) 37.1 % (36.0-47.0) Mean Corpuscular Volume 99 fL (79-100) 101 fL (79-100) Mean Corpuscular Hemoglobin 35 pg (25-35) 34 pg (25-35) Mean Corpuscular Hemoglobin Concent 35 g/dL (31-37) 34 g/dL (31-37) Red Cell Distribution Width 15.6 % (11.5-14.5) 15.6 % (11.5-14.5) Platelet Count 362 x10^3/uL (140-400) 329 x10^3/uL (140-400) Neutrophils (%) (Auto) 70 % (31-73) 72 % (31-73) Lymphocytes (%) (Auto) 23 % (24-48) 20 % (24-48) Monocytes (%) (Auto) 6 % (0-9) 8 % (0-9) Eosinophils (%) (Auto) 0 % (0-3) 0 % (0-3) Basophils (%) (Auto) 1 % (0-3) 0 % (0-3) Neutrophils # (Auto) 11.7 x10^3/uL (1.8-7.7) 10.3 x10^3/uL (1.8-7.7) Lymphocytes # (Auto) 3.9 x10^3/uL (1.0-4.8) 2.9 x10^3/uL (1.0-4.8) Monocytes # (Auto) 1.0 x10^3/uL (0.0-1.1) 1.1 x10^3/uL (0.0-1.1) Eosinophils # (Auto) 0.0 x10^3/uL (0.0-0.7) 0.1 x10^3/uL (0.0-0.7) Basophils # (Auto) 0.1 x10^3/uL (0.0-0.2) 0.0 x10^3/uL (0.0-0.2) Sodium Level 137 mmol/L (136-145) 144 mmol/L (136-145) Potassium Level 2.8 mmol/L (3.5-5.1) 3.7 mmol/L (3.5-5.1) Chloride Level 95 mmol/L (98-107) 105 mmol/L (98-107) Carbon Dioxide Level 30 mmol/L (21-32) 30 mmol/L (21-32) Anion Gap 12 (6-14) 9 (6-14) Blood Urea Nitrogen 4 mg/dL (7-20) 3 mg/dL (7-20) Creatinine 0.9 mg/dL (0.6-1.0) 0.8 mg/dL (0.6-1.0) Estimated GFR (Cockcroft-Gault) 71.3 81.6 BUN/Creatinine Ratio 4 (6-20) 4 (6-20) Glucose Level 83 mg/dL (70-99) 90 mg/dL (70-99) Lactic Acid Level 1.5 mmol/L (0.4-2.0) Calcium Level 9.4 mg/dL (8.5-10.1) 8.4 mg/dL (8.5-10.1) Total Bilirubin 0.4 mg/dL (0.2-1.0) 0.6 mg/dL (0.2-1.0) Aspartate Amino Transf (AST/SGOT) 34 U/L (15-37) 25 U/L (15-37) Alanine Aminotransferase (ALT/SGPT) 33 U/L (14-59) 24 U/L (14-59) Alkaline Phosphatase 61 U/L (46-116) 52 U/L (46-116) Total Protein 8.5 g/dL (6.4-8.2) 7.0 g/dL (6.4-8.2) Albumin 4.0 g/dL (3.4-5.0) 3.1 g/dL (3.4-5.0) Albumin/Globulin Ratio 0.9 (1.0-1.7) 0.8 (1.0-1.7) Procalcitonin < 0.10 ng/mL (0.00-0.10) Magnesium Level 1.8 mg/dL (1.8-2.4) Laboratory Tests Test 05/26/19 19:40 05/27/19 03:15 White Blood Count 16.8 x10^3/uL (4.0-11.0) 14.4 x10^3/uL (4.0-11.0) Red Blood Count 3.98 x10^6/uL (3.50-5.40) 3.67 x10^6/uL (3.50-5.40) Hemoglobin 13.7 g/dL (12.0-15.5) 12.6 g/dL (12.0-15.5) Hematocrit 39.4 % (36.0-47.0) 37.1 % (36.0-47.0) Mean Corpuscular Volume 99 fL (79-100) 101 fL (79-100) Mean Corpuscular Hemoglobin 35 pg (25-35) 34 pg (25-35) Mean Corpuscular Hemoglobin Concent 35 g/dL (31-37) 34 g/dL (31-37) Red Cell Distribution Width 15.6 % (11.5-14.5) 15.6 % (11.5-14.5) Platelet Count 362 x10^3/uL (140-400) 329 x10^3/uL (140-400) Neutrophils (%) (Auto) 70 % (31-73) 72 % (31-73) Lymphocytes (%) (Auto) 23 % (24-48) 20 % (24-48) Monocytes (%) (Auto) 6 % (0-9) 8 % (0-9) Eosinophils (%) (Auto) 0 % (0-3) 0 % (0-3) Basophils (%) (Auto) 1 % (0-3) 0 % (0-3) Neutrophils # (Auto) 11.7 x10^3/uL (1.8-7.7) 10.3 x10^3/uL (1.8-7.7) Lymphocytes # (Auto) 3.9 x10^3/uL (1.0-4.8) 2.9 x10^3/uL (1.0-4.8) Monocytes # (Auto) 1.0 x10^3/uL (0.0-1.1) 1.1 x10^3/uL (0.0-1.1) Eosinophils # (Auto) 0.0 x10^3/uL (0.0-0.7) 0.1 x10^3/uL (0.0-0.7) Basophils # (Auto) 0.1 x10^3/uL (0.0-0.2) 0.0 x10^3/uL (0.0-0.2) Sodium Level 137 mmol/L (136-145) 144 mmol/L (136-145) Potassium Level 2.8 mmol/L (3.5-5.1) 3.7 mmol/L (3.5-5.1) Chloride Level 95 mmol/L (98-107) 105 mmol/L (98-107) Carbon Dioxide Level 30 mmol/L (21-32) 30 mmol/L (21-32) Anion Gap 12 (6-14) 9 (6-14) Blood Urea Nitrogen 4 mg/dL (7-20) 3 mg/dL (7-20) Creatinine 0.9 mg/dL (0.6-1.0) 0.8 mg/dL (0.6-1.0) Estimated GFR (Cockcroft-Gault) 71.3 81.6 BUN/Creatinine Ratio 4 (6-20) 4 (6-20) Glucose Level 83 mg/dL (70-99) 90 mg/dL (70-99) Lactic Acid Level 1.5 mmol/L (0.4-2.0) Calcium Level 9.4 mg/dL (8.5-10.1) 8.4 mg/dL (8.5-10.1) Total Bilirubin 0.4 mg/dL (0.2-1.0) 0.6 mg/dL (0.2-1.0) Aspartate Amino Transf (AST/SGOT) 34 U/L (15-37) 25 U/L (15-37) Alanine Aminotransferase (ALT/SGPT) 33 U/L (14-59) 24 U/L (14-59) Alkaline Phosphatase 61 U/L (46-116) 52 U/L (46-116) Total Protein 8.5 g/dL (6.4-8.2) 7.0 g/dL (6.4-8.2) Albumin 4.0 g/dL (3.4-5.0) 3.1 g/dL (3.4-5.0) Albumin/Globulin Ratio 0.9 (1.0-1.7) 0.8 (1.0-1.7) Procalcitonin < 0.10 ng/mL (0.00-0.10) Magnesium Level 1.8 mg/dL (1.8-2.4) Assessment/Plan Assessment/Plan Left groin abscess IV abx plan incision and drainage in OR. R/R/B/A d/w pt. Thanks for consult! DENNISE MATT MD May 27, 2019 09:34
--- NOTE | 2019-05-27 09:45 | NUR ---
Dr. Davila paged per pharmacy request re: pt's reaction of a rash to PCN and order for Ancef as a preop abx.
--- NOTE | 2019-05-27 09:55 | NUR ---
Dr. Davila returned call, notified of pt's allergy and other ordered abx, orders received.
[2019-05-27] MEDS ORDERED: VANCOMYCIN 1 GM in IV NORMAL SALINE 250ML 250 ML IV SCH (10:00)
[2019-05-27 11:00] VITALS: BP 106/72
[2019-05-27 12:28] LABS: U PREG PATIENT NEGATIVE (NEG)
--- NOTE | 2019-05-27 12:34 | NUR ---
SS following for discharge planning. SS reviewed pt chart. Pt is from home and is currently on room air. SS will continue to follow for discharge planning.
[2019-05-27] MEDS ORDERED: ONDANSETRON PF 4 MG/2 ML VIAL. ONE (13:22)
[2019-05-27] MEDS ORDERED: PROPOFOL 20 ML IV ONE (13:23)
[2019-05-27] MEDS ORDERED: DEXAMETHASONE SOD PHOS 4 MG/ML VIAL ONE (13:23)
[2019-05-27] MEDS ORDERED: LIDOCAINE 2% PF 5 ML VIAL. ONE (13:23)
[2019-05-27] MEDS ORDERED: MIDAZOLAM HCL/PF 2 MG/2 ML VIAL. ONE (13:41)
[2019-05-27] MEDS ORDERED: IV RINGERS,LACTATED 1000ML 1,000 ML IV SCH (13:57)
[2019-05-27] MEDS ORDERED: fentaNYL PF VIAL 100 MCG/2 ML VIAL IV PRN ×2 (14:00)
[2019-05-27] MEDS ORDERED: MORPHINE SULFATE 2 MG/ML VIAL. IV PRN ×2 (14:00→15:15)
[2019-05-27] MEDS ORDERED: ceFAZolin 2GM PREMIX 2 GM/50 ML BAG IV ONE (14:00)
[2019-05-27] MEDS ORDERED: LIDOCAINE 1% PF 2 ML VIAL. ID PRN (14:00)
[2019-05-27] MEDS ORDERED: HYDROmorphone 2 MG/ML VIAL IV PRN (14:00)
[2019-05-27] MEDS ORDERED: SEVOFLURANE 16 TO 30 MINUTES. IH ONE (15:02)
[2019-05-27] MEDS ORDERED: IV NORMAL SALINE 1000ML BAG 1,000 ML IV SCH (15:03)
[2019-05-27] MEDS ORDERED: HYDROcodone/APAP 5/325MG 1 TAB TABLET PO PRN (15:15)
[2019-05-27] MEDS ORDERED: NALOXONE 0.4 MG/ML VIAL. IV PRN (15:15)
[2019-05-27] MEDS ORDERED: 0.9 % SODIUM CHLORIDE 10 ML DISP.SYRIN. IV PRN (15:15)
--- NOTE | 2019-05-27 15:17 | PDOC ---
Infectious Disease Note Vital Sign Vital Signs Vital Signs Date Time Temp Pulse Resp B/P (MAP) Pulse Ox O2 Delivery O2 Flow Rate FiO2 05/27/19 13:19 97 62 17 116/88 96 Room Air 97.0 Labs Lab Laboratory Tests Test 05/26/19 19:40 05/27/19 03:15 05/27/19 11:12 White Blood Count 16.8 x10^3/uL (4.0-11.0) 14.4 x10^3/uL (4.0-11.0) Red Blood Count 3.98 x10^6/uL (3.50-5.40) 3.67 x10^6/uL (3.50-5.40) Hemoglobin 13.7 g/dL (12.0-15.5) 12.6 g/dL (12.0-15.5) Hematocrit 39.4 % (36.0-47.0) 37.1 % (36.0-47.0) Mean Corpuscular Volume 99 fL (79-100) 101 fL (79-100) Mean Corpuscular Hemoglobin 35 pg (25-35) 34 pg (25-35) Mean Corpuscular Hemoglobin Concent 35 g/dL (31-37) 34 g/dL (31-37) Red Cell Distribution Width 15.6 % (11.5-14.5) 15.6 % (11.5-14.5) Platelet Count 362 x10^3/uL (140-400) 329 x10^3/uL (140-400) Neutrophils (%) (Auto) 70 % (31-73) 72 % (31-73) Lymphocytes (%) (Auto) 23 % (24-48) 20 % (24-48) Monocytes (%) (Auto) 6 % (0-9) 8 % (0-9) Eosinophils (%) (Auto) 0 % (0-3) 0 % (0-3) Basophils (%) (Auto) 1 % (0-3) 0 % (0-3) Neutrophils # (Auto) 11.7 x10^3/uL (1.8-7.7) 10.3 x10^3/uL (1.8-7.7) Lymphocytes # (Auto) 3.9 x10^3/uL (1.0-4.8) 2.9 x10^3/uL (1.0-4.8) Monocytes # (Auto) 1.0 x10^3/uL (0.0-1.1) 1.1 x10^3/uL (0.0-1.1) Eosinophils # (Auto) 0.0 x10^3/uL (0.0-0.7) 0.1 x10^3/uL (0.0-0.7) Basophils # (Auto) 0.1 x10^3/uL (0.0-0.2) 0.0 x10^3/uL (0.0-0.2) Sodium Level 137 mmol/L (136-145) 144 mmol/L (136-145) Potassium Level 2.8 mmol/L (3.5-5.1) 3.7 mmol/L (3.5-5.1) Chloride Level 95 mmol/L (98-107) 105 mmol/L (98-107) Carbon Dioxide Level 30 mmol/L (21-32) 30 mmol/L (21-32) Anion Gap 12 (6-14) 9 (6-14) Blood Urea Nitrogen 4 mg/dL (7-20) 3 mg/dL (7-20) Creatinine 0.9 mg/dL (0.6-1.0) 0.8 mg/dL (0.6-1.0) Estimated GFR (Cockcroft-Gault) 71.3 81.6 BUN/Creatinine Ratio 4 (6-20) 4 (6-20) Glucose Level 83 mg/dL (70-99) 90 mg/dL (70-99) Lactic Acid Level 1.5 mmol/L (0.4-2.0) Calcium Level 9.4 mg/dL (8.5-10.1) 8.4 mg/dL (8.5-10.1) Total Bilirubin 0.4 mg/dL (0.2-1.0) 0.6 mg/dL (0.2-1.0) Aspartate Amino Transf (AST/SGOT) 34 U/L (15-37) 25 U/L (15-37) Alanine Aminotransferase (ALT/SGPT) 33 U/L (14-59) 24 U/L (14-59) Alkaline Phosphatase 61 U/L (46-116) 52 U/L (46-116) Total Protein 8.5 g/dL (6.4-8.2) 7.0 g/dL (6.4-8.2) Albumin 4.0 g/dL (3.4-5.0) 3.1 g/dL (3.4-5.0) Albumin/Globulin Ratio 0.9 (1.0-1.7) 0.8 (1.0-1.7) Procalcitonin < 0.10 ng/mL (0.00-0.10) Magnesium Level 1.8 mg/dL (1.8-2.4) Urine Test Negative (NEG) Objective Assessment Cellulitis and abscess left groin area failed outpatient Bactrim -s/p I and D in ER, 05/19. no cultures sent Leukocytosis PCN allergy listed. Tolerated amoxicillin well in past. Healthcare exposure Plan Plan of Care Continue vanc and Zosyn Monitor renal function closely Scheduled for surgical I and D f/u cultures am CBC s/p steroids D/w Dr. Davila Thank you Attending Co-Sign Attending Co-Sign The patient was seen and interviewed as well as examined at the bedside. The chart was reviewed. The case was discussed. Agree with the plan of care. ISABELLA OVALLE APRN May 27, 2019 15:17 IVAN PHAM MD May 27, 2019 15:24
--- NOTE | 2019-05-27 15:19 | PDOC4 ---
OPERATIVE NOTE Date: Date: May 27, 2019 Pre-Op Diagnosis: left groin abscess Post-Op Diagnosis: same Procedure Performed: incision and drainage of left groin abscess Surgeon: Juan Ramon Matt Anesthesia Type: GETA plus local Blood Loss: 5 Specimans Obtained: necrotic skin, relatively small abscess, cultures obtained. Findings: relatively small abscess, necrotic skin overlying, excised Complications: none Operative Note: After obtaining informed consent, patient was taken to OR, induced under GETA and prepped in the usual fashion over left groin. Fluctuant area identified. Necrotic skin overlying excised with 15 blade and sent to pathology. Purulent material evacuated. Cultures obtained. Wound copiously irrigated. Counter incision made lateral and melvina drain placed and secured with 3 0 nylon. Wound packed with iodoform gauze. Dressing placed. Patient tolerated procedure well and sent to PACU in stable condition. All counts correct. Wound class is 4. DENNISE MATT MD May 27, 2019 15:19
[2019-05-27 16:05] VITALS: BP 148/88
--- NOTE | 2019-05-27 16:27 | NUR ---
Pt. back from PACU, friend at bedside. Rates pain at 5/10. Denies complaints.
[2019-05-27] MEDS ORDERED: TRAM50TA PO (16:44)
[2019-05-27] MEDS ORDERED: DOXY100C2 PO (16:44)
--- NOTE | 2019-05-27 16:46 | PDOC3 ---
Discharge Summary Visit Information Date of Admission: May 26, 2019 Date of Discharge: May 27, 2019 Admitting Diagnosis: Cellulitis and abscess of left groin Final Diagnosis Problems Medical Problems: (1) Cellulitis of left groin Status: Acute Brief Hospital Course Allergies Allergies Coded Allergies Type Severity Reaction Last Updated Verified Corticosteroids (Glucocorticoids) Allergy Severe facial swelling 05/26/19 Yes Penicillins Allergy Intermediate hives 05/26/19 Yes Vital Signs Vital Signs Date Time Temp Pulse Resp B/P (MAP) Pulse Ox O2 Delivery O2 Flow Rate FiO2 05/27/19 16:05 97.3 78 20 148/88 96 Room Air 97.3 05/27/19 15:35 10 Lab Results Laboratory Tests Test 05/26/19 19:40 05/27/19 03:15 05/27/19 11:12 White Blood Count 16.8 x10^3/uL (4.0-11.0) 14.4 x10^3/uL (4.0-11.0) Red Blood Count 3.98 x10^6/uL (3.50-5.40) 3.67 x10^6/uL (3.50-5.40) Hemoglobin 13.7 g/dL (12.0-15.5) 12.6 g/dL (12.0-15.5) Hematocrit 39.4 % (36.0-47.0) 37.1 % (36.0-47.0) Mean Corpuscular Volume 99 fL (79-100) 101 fL (79-100) Mean Corpuscular Hemoglobin 35 pg (25-35) 34 pg (25-35) Mean Corpuscular Hemoglobin Concent 35 g/dL (31-37) 34 g/dL (31-37) Red Cell Distribution Width 15.6 % (11.5-14.5) 15.6 % (11.5-14.5) Platelet Count 362 x10^3/uL (140-400) 329 x10^3/uL (140-400) Neutrophils (%) (Auto) 70 % (31-73) 72 % (31-73) Lymphocytes (%) (Auto) 23 % (24-48) 20 % (24-48) Monocytes (%) (Auto) 6 % (0-9) 8 % (0-9) Eosinophils (%) (Auto) 0 % (0-3) 0 % (0-3) Basophils (%) (Auto) 1 % (0-3) 0 % (0-3) Neutrophils # (Auto) 11.7 x10^3/uL (1.8-7.7) 10.3 x10^3/uL (1.8-7.7) Lymphocytes # (Auto) 3.9 x10^3/uL (1.0-4.8) 2.9 x10^3/uL (1.0-4.8) Monocytes # (Auto) 1.0 x10^3/uL (0.0-1.1) 1.1 x10^3/uL (0.0-1.1) Eosinophils # (Auto) 0.0 x10^3/uL (0.0-0.7) 0.1 x10^3/uL (0.0-0.7) Basophils # (Auto) 0.1 x10^3/uL (0.0-0.2) 0.0 x10^3/uL (0.0-0.2) Sodium Level 137 mmol/L (136-145) 144 mmol/L (136-145) Potassium Level 2.8 mmol/L (3.5-5.1) 3.7 mmol/L (3.5-5.1) Chloride Level 95 mmol/L (98-107) 105 mmol/L (98-107) Carbon Dioxide Level 30 mmol/L (21-32) 30 mmol/L (21-32) Anion Gap 12 (6-14) 9 (6-14) Blood Urea Nitrogen 4 mg/dL (7-20) 3 mg/dL (7-20) Creatinine 0.9 mg/dL (0.6-1.0) 0.8 mg/dL (0.6-1.0) Estimated GFR (Cockcroft-Gault) 71.3 81.6 BUN/Creatinine Ratio 4 (6-20) 4 (6-20) Glucose Level 83 mg/dL (70-99) 90 mg/dL (70-99) Lactic Acid Level 1.5 mmol/L (0.4-2.0) Calcium Level 9.4 mg/dL (8.5-10.1) 8.4 mg/dL (8.5-10.1) Total Bilirubin 0.4 mg/dL (0.2-1.0) 0.6 mg/dL (0.2-1.0) Aspartate Amino Transf (AST/SGOT) 34 U/L (15-37) 25 U/L (15-37) Alanine Aminotransferase (ALT/SGPT) 33 U/L (14-59) 24 U/L (14-59) Alkaline Phosphatase 61 U/L (46-116) 52 U/L (46-116) Total Protein 8.5 g/dL (6.4-8.2) 7.0 g/dL (6.4-8.2) Albumin 4.0 g/dL (3.4-5.0) 3.1 g/dL (3.4-5.0) Albumin/Globulin Ratio 0.9 (1.0-1.7) 0.8 (1.0-1.7) Procalcitonin < 0.10 ng/mL (0.00-0.10) Magnesium Level 1.8 mg/dL (1.8-2.4) Urine Test Negative (NEG) Laboratory Tests Test 05/26/19 19:40 05/27/19 03:15 05/27/19 11:12 White Blood Count 16.8 x10^3/uL (4.0-11.0) 14.4 x10^3/uL (4.0-11.0) Red Blood Count 3.98 x10^6/uL (3.50-5.40) 3.67 x10^6/uL (3.50-5.40) Hemoglobin 13.7 g/dL (12.0-15.5) 12.6 g/dL (12.0-15.5) Hematocrit 39.4 % (36.0-47.0) 37.1 % (36.0-47.0) Mean Corpuscular Volume 99 fL (79-100) 101 fL (79-100) Mean Corpuscular Hemoglobin 35 pg (25-35) 34 pg (25-35) Mean Corpuscular Hemoglobin Concent 35 g/dL (31-37) 34 g/dL (31-37) Red Cell Distribution Width 15.6 % (11.5-14.5) 15.6 % (11.5-14.5) Platelet Count 362 x10^3/uL (140-400) 329 x10^3/uL (140-400) Neutrophils (%) (Auto) 70 % (31-73) 72 % (31-73) Lymphocytes (%) (Auto) 23 % (24-48) 20 % (24-48) Monocytes (%) (Auto) 6 % (0-9) 8 % (0-9) Eosinophils (%) (Auto) 0 % (0-3) 0 % (0-3) Basophils (%) (Auto) 1 % (0-3) 0 % (0-3) Neutrophils # (Auto) 11.7 x10^3/uL (1.8-7.7) 10.3 x10^3/uL (1.8-7.7) Lymphocytes # (Auto) 3.9 x10^3/uL (1.0-4.8) 2.9 x10^3/uL (1.0-4.8) Monocytes # (Auto) 1.0 x10^3/uL (0.0-1.1) 1.1 x10^3/uL (0.0-1.1) Eosinophils # (Auto) 0.0 x10^3/uL (0.0-0.7) 0.1 x10^3/uL (0.0-0.7) Basophils # (Auto) 0.1 x10^3/uL (0.0-0.2) 0.0 x10^3/uL (0.0-0.2) Sodium Level 137 mmol/L (136-145) 144 mmol/L (136-145) Potassium Level 2.8 mmol/L (3.5-5.1) 3.7 mmol/L (3.5-5.1) Chloride Level 95 mmol/L (98-107) 105 mmol/L (98-107) Carbon Dioxide Level 30 mmol/L (21-32) 30 mmol/L (21-32) Anion Gap 12 (6-14) 9 (6-14) Blood Urea Nitrogen 4 mg/dL (7-20) 3 mg/dL (7-20) Creatinine 0.9 mg/dL (0.6-1.0) 0.8 mg/dL (0.6-1.0) Estimated GFR (Cockcroft-Gault) 71.3 81.6 BUN/Creatinine Ratio 4 (6-20) 4 (6-20) Glucose Level 83 mg/dL (70-99) 90 mg/dL (70-99) Lactic Acid Level 1.5 mmol/L (0.4-2.0) Calcium Level 9.4 mg/dL (8.5-10.1) 8.4 mg/dL (8.5-10.1) Total Bilirubin 0.4 mg/dL (0.2-1.0) 0.6 mg/dL (0.2-1.0) Aspartate Amino Transf (AST/SGOT) 34 U/L (15-37) 25 U/L (15-37) Alanine Aminotransferase (ALT/SGPT) 33 U/L (14-59) 24 U/L (14-59) Alkaline Phosphatase 61 U/L (46-116) 52 U/L (46-116) Total Protein 8.5 g/dL (6.4-8.2) 7.0 g/dL (6.4-8.2) Albumin 4.0 g/dL (3.4-5.0) 3.1 g/dL (3.4-5.0) Albumin/Globulin Ratio 0.9 (1.0-1.7) 0.8 (1.0-1.7) Procalcitonin < 0.10 ng/mL (0.00-0.10) Magnesium Level 1.8 mg/dL (1.8-2.4) Urine Test Negative (NEG) Brief Hospital Course 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 She was seen and treated in the ED 1 weeks ago for this and found to have an abscess, had an I&D, the left groin abscess was drained, she was sent home on Bactrim she states the abscess has gotten worse since then and has has worsening pain that is interfering with her ability to work. Denies any fever, n/v. Some chills and she notes the groin mass has hardened and has red streaking. No STI risk factors. She has used a razor for shaving, feels this may have been the nidus. Incidentally was found with potassium level of 2.7 and elevated WBC. She is being admitted for further workup and treatment and failure of outpatient therapy. Of note she had ampicillin reaction when she was 10 years old and has PCN allergy documented, however has had augmentin on multiple occasions with no adverse effects. She was seen by ID, started on vancomycin and zosyn and general surgery and went to OR for I&D with evacuation of purulence. She was feeling much better, had pen maribel drain in place, discharged with prescription for doxycycline 100mg BID for 10 days. MRSA nares was negative. Greater than 135 minutes on same day admit and d/c. Left groin cellulitis and abscess - s/p I&D and failed outpatient therapy Hypokalemia - symptomatically weak, required IV replacement and PO replacement, replaced mag as well Leukocytosis - no other SIRS criteria. This is likely 2/2 her cellulitis and abscess H/o underweight - taking celexa and amitryptiline outpatient for weight gain Discharge Information Condition at Discharge: Improved Follow Up: Weeks (1) Disposition/Orders: D/C to Home Scheduled Amitriptyline Hcl (Amitriptyline Hcl) 10 Mg Tablet, 1 TAB PO QHS for underweight for 90 Days, #90 Ref 1 Prescribed by: MARIA TERESA ERICKSON MD on 05/27/19855 Last Action: Continued on 05/27/19899 by MARIA TERESA ERICKSON MD Citalopram Hydrobromide (Celexa) 20 Mg Tablet, 1 TAB PO QHS for underweight, #90 Ref 3 Prescribed by: MARIA TERESA ERICKSON MD on 05/27/19855 Last Action: Continued on 05/27/19899 by MARIA TERESA ERICKSON MD Doxycycline Hyclate (Doxycycline Hyclate) 100 Mg Capsule, 1 CAP PO BID for MRSA abscess for 7 Days, #14 Prescribed by: MARIA TERESA ERICKSON MD on 05/27/19 1644 Fenofibrate Nanocrystallized (Fenofibrate) 145 Mg Tablet, 1 TAB PO QHS for s/p timmy, #90 Ref 5 Prescribed by: MARIA TERESA ERICKSON MD on 05/27/19855 Last Action: Converted on 05/27/19899 by MARIA TERESA ERICKSON MD Scheduled PRN Tramadol Hcl (Tramadol Hcl) 50 Mg Tablet, 50 MG PO Q4HRS PRN for PAIN for 6 Days, #24 Prescribed by: MARIA TERESA ERICKSON MD on 05/27/19 1644 Discontinued Medications Hydrocodone/Apap 5-325 (Ronco 5-325 Tablet) 1 Each Tablet, 1 TAB PO Q6-8HRS PRN for PAIN MDD 8, #12 Prescribed by: Maribel Chavarria APRN on 05/19/19 1157 Last Action: Discontinued on 05/27/19 0856 by MARIA TERESA ERICKSON MD Sulfamethoxazole/Trimethoprim (Bactrim Ds Tablet) 1 Each Tablet, 1 TAB PO BID, #20 Prescribed by: Maribel Chavarria APRN on 05/19/19 1157 Last Action: Discontinued on 05/27/1956 by MD DRE SHARPE CHRISTOPHER S MD May 27, 2019 16:46
--- NOTE | 2019-05-27 17:55 | CONS ---
DATE OF CONSULTATION: 05/27/2019 Barb Zelaya NP dictating for Dr. Ivan Pham, Infectious Disease. Referred by Maribel Chavarria APRN. REASON FOR CONSULTATION: Abscess. HISTORY OF PRESENT ILLNESS: This patient is a 34-year-old female who was seen in the Emergency Room on 05/19 with a left groin abscess. She underwent a bedside I and D, prescribed Bactrim and released home. Since then, the area became increasingly more swollen, red and painful. She has since been admitted and is scheduled for a surgical I and D today. 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 She denies history of skin abscesses. Denies fevers, chills or body aches. Denies urinary frequency, urgency or dysuria. PAST MEDICAL HISTORY: Hyperlipidemia, Kong's esophagus, depression, anxiety. PAST SURGICAL HISTORY: Cholecystectomy, right ankle ligament replacement. SOCIAL HISTORY: Lives at home. She has a cat and dog. FAMILY HISTORY: Noncontributory. ALLERGIES: PENICILLIN, reaction unknown. She has tolerated amoxicillin well in the past and is currently on Zosyn without problems. CURRENT MEDICATIONS: Vancomycin, Zosyn, previously on outpatient Bactrim, probiotics. Other medications are available and have been reviewed on the OCT. REVIEW OF SYSTEMS: Per HPI, otherwise all other review of systems are negative. PHYSICAL EXAMINATION: VITAL SIGNS: Temperature is 97.0, blood pressure 116/88, heart rate 62, respiratory rate 17, pulse oximetry is 96% on room air. GENERAL: The patient is propped up in bed, alert, in no apparent distress. HEENT: Pupils equally round, reactive. Normal conjunctivae. Oropharynx pink and moist. NECK: Supple. LUNGS: Clear to auscultation. HEART: S1, S2. ABDOMEN: Soft, nontender with bowel sounds present. EXTREMITIES: No gross edema or cyanosis. SKIN: Warm to touch. Left groin abscess with redness and small area of necrosis, tender, no drainage. NEUROLOGIC: Alert and oriented x 3. LABORATORY DATA: Today's WBC 14.4 from 16.8 on admission, hemoglobin 12.6, platelets 329,000. Sodium 144, potassium 3.7 from 2.8. Creatinine 0.8, BUN 3, glucose 90. Lactic acid 1.5, total bilirubin 0.6, AST 25, ALT 24, albumin 3.1. Procalcitonin less than 0.10. Urine test negative. IMPRESSION: 1. Cellulitis and abscess, left groin area. Previously had undergone I and D in the Emergency Room on 05/19. There were no cultures sent at that time. Failed outpatient Bactrim. 2. Leukocytosis. 3. PENICILLIN ALLERGY, reaction unknown. She is currently tolerating Zosyn well. 4. Healthcare exposure. PLAN: Continue vancomycin and Zosyn. Monitor renal function closely. She is scheduled to undergo a surgical I and D soon. We will follow up on culture results. Discussed with Dr. Davila. Thank you, Maribel Chavarria APRN, for asking us to participate in this patient's care. Should you have further questions or concerns, please call. The patient seen, examined, and plan of care implemented by Dr. Ivan Pham. IVAN PHAM MD DR: BUBBA/rachel JOB#: [id number] / [id number]
--- NOTE | 2019-05-27 18:30 | NUR ---
Pt. discharged to home with Rx, verbalized understanding of of discharge instructions. L groin dressing CDI. pt. sent home with dressing change supplies. Packing and melvina drain intact.
[2019-05-27] MEDS ORDERED: DOCUSATE SODIUM 100 MG CAPSULE. PO SCH (21:00)
[2019-05-27] MEDS ORDERED: AMITRIPTYLINE HCL 10 MG TABLET. PO SCH (21:00)
[2019-05-27] MEDS ORDERED: CITALOPRAM 20 MG TABLET. PO SCH (21:00)
[2019-05-27] MEDS ORDERED: LACTOBACILLUS RHAMNOSUS GG 1 CAPSULE. PO SCH (21:00)
[2019-05-28] MEDS ORDERED: FENOFIBRATE,MICRONIZED 134 MG CAPSULE PO SCH (21:00)
--- NOTE | 2019-05-29 15:07 | PATHOLOGY ---
[facility] Accession Number: [id number] . 01 Material submitted: . groin - LEFT GROIN ABSCESS. Modifiers: left . 01 Clinical history: . Left groin abscess . 02 Diagnosis: Skin and subcutaneous tissue, "left groin abscess", debridement: - Squamous epithelium with ulceration and acute abscess. (SKM/db; 05/29/2019) LBQ 05/29/2019 1326 Local . 02 Electronically signed: . Phillip Horton MD, Pathologist NPI- [id number] . 01 Gross description: . The specimen is received in formalin, labeled "Miquel, Natan, left groin abscess" and consists of a hemorrhagic abscess segment of fish-armendariz tissue measuring 1.4 x 0.6 x 0.3 cm which is entirely submitted in A1. (SDY; 05/28/2019) SYU/SYU 05/28/2019 1614 Local . 02 Pathologist provided ICD-10: L98.499, L02.214 . 02 CPT . 143209 Specimen Comment: A courtesy copy of this report has been sent to Specimen Comment: [phone], , . Specimen Comment: Report sent to ,DR BROWN / DR LEGGETT Performed at: 01 [facility] [address], [place] [id number] MD Geo Patrick MD Phone: [phone] Performed at: 02 [facility] [address] [place], [place] [id number] MD Tico Esposito MD Phone: [phone]
== END 2019-05-27 19:25 | disposition home or self-care (01) | DRG 581 ==
LOC: ER 18:52 → 4 NORTH 20:53
PROVIDERS: ADMIT Family Medicine; ATTEND Family Medicine
PROC: 0Y960ZZ Drainage of Left Inguinal Region, Open Approach (ICD-10-PCS; principal; 2019-05-27 14:00)
DX: L02.214 Cutaneous abscess of groin (principal); F41.9 Anxiety disorder, unspecified; L03.314 Cellulitis of groin; F32.9 Major depressive disorder, single episode, unspecified; E87.6 Hypokalemia; E78.5 Hyperlipidemia, unspecified; B95.62 Methicillin resistant Staphylococcus aureus infection as the cause of diseases classified elsewhere; R63.6 Underweight; Z68.24 Body mass index [BMI] 24.0-24.9, adult; Z88.0 Allergy status to penicillin; Z88.8 Allergy status to other drugs, medicaments and biological substances
CPT/HCPCS: 36415; 80053; 81025; 83605; 83735; 84145; 85025; 87040; 87070; 87071; 87075; 87641; J0696; J0780; J1100; J1885; J1956; J2001; J2250; J2270; J2405; J2543; J2704; J3370; J3475; J7030; J7040; J7050; 99285-25; G0378

== ENCOUNTER → 2019-10-19 | Outpatient (CLI) | payer OTHER ==
[~2019-10-19] MED LIST changes: +AMIT10TA PO; +CITA20TA9 PO; +DOXY100C2 PO; +FENO145T3 PO; +TRAM50TA PO
--- NOTE | 2019-10-19 14:38 | KCIC ---
MR of the right ankle HISTORY: Avascular necrosis of bone. Right ankle swelling in recent weeks. 2 prior surgeries. TECHNIQUE: Routine multiplanar sequences are obtained. COMPARISON: None are available. FINDINGS: Peroneal tendons are intact. Anterior talofibular ligament, calcaneofibular ligament and posterior talofibular ligament are poorly defined and appear replaced with scarring. Tibiofibular syndesmotic ligaments are also poorly seen with probable scarring in the area. Posterior tibial and flexor tendons are intact. Scarring of the deep fibers of the deltoid ligament. Anterior tibial and extensor tendons are intact. Achilles tendon intact. No evidence of acute plantar fasciitis. The subtalar joints are patent. Tarsal sinus is edematous but fatty signal is preserved. Broad subchondral marrow abnormality at the distal tibia with characteristic morphology of osteonecrosis. There is some fracturing through the distal tibial articular surface with mild collapse and irregularity with subchondral bone offset of up to 2 mm. Smaller focus of subchondral osteonecrosis at the talar dome and within the navicular bone. Tiny focus at the posterior calcaneus. No evidence of acute fracture. Marrow edema at the posterior talus, may indicate some active osteonecrosis versus more nonspecific edema or contusion. No evidence of large effusion. No abnormal soft tissue fluid collection. Generalized DJD. Postsurgical changes with susceptibility artifact about the lateral ankle, talus and calcaneus. 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 IMPRESSION: 1. Marrow abnormality at the distal tibia compatible with osteonecrosis with mild subchondral bone fracture and collapse. 2. Smaller foci of osteonecrosis within the talus, calcaneus and navicular bone. 3. Chronic scarring of lateral and medial ankle ligaments. 4. Generalized DJD. 5. Acute appearing marrow edema at the posterior talus could represent a zone of active osteonecrosis, versus more nonspecific reactive marrow edema or contusion. Electronically signed by: Derrick Mike MD (10/19/2019 2:35 PM) [facility]
== END | disposition home or self-care (01) ==
LOC: KCIC MRI 12:04
PROVIDERS: ATTEND Nurse Practitioner Family
DX: S82.391A Other fracture of lower end of right tibia, initial encounter for closed fracture (principal); M15.0 Primary generalized (osteo)arthritis; M87.871 Other osteonecrosis, right ankle; X58.XXXA Exposure to other specified factors, initial encounter; Y93.89 Activity, other specified; Y92.89 Other specified places as the place of occurrence of the external cause; Y99.8 Other external cause status
CPT/HCPCS: 73721

== ENCOUNTER 2020-01-21 20:33 | Emergency (ER) | payer OTHER ==
[~2020-01-21] VITALS: Ht 162.6 cm; Wt 68.2 kg
[2020-01-21 21:05] VITALS: BP 136/90
[2020-01-21] MEDS ORDERED: IV NORMAL SALINE 1000ML BAG 1,000 ML IV ONE (22:30)
[2020-01-21] MEDS ORDERED: ONDANSETRON PF 4 MG/2 ML VIAL. IV ONE (22:30)
[2020-01-21] MEDS ORDERED: ONDA4TAB12 PO (22:45)
--- NOTE | 2020-01-21 22:45 | PHYS DOC ---
Past Medical History Past Medical History: No Pertinent History Past Surgical History: No Surgical History, Cholecystectomy Smoking Status: Current Every Day Smoker Alcohol Use: None Drug Use: None General Adult EDM: Chief Complaint: NAUSEA/VOMITING/DIARRHA HPI: HPI: Patient is a 34-year-old female who presents with intractable nausea and vomiting. She states she has had a pretty stressful several weeks where her suddenly. She stopped eating she had her Zoloft increased to 100 mg she became very nauseous with that tried to stop taking the Zoloft which made her nauseous she just has not been able to eat much. She denies any abdominal pain. She has not had any fever chills or sweats. She just cannot get control of the nausea. [] Review of Systems: Review of Systems: Constitutional: Denies fever or chills. [] Eyes: Denies change in visual acuity. [] HENT: Denies nasal congestion or sore throat. [] Respiratory: Denies cough or shortness of breath. [] Cardiovascular: Denies chest pain or edema. [] GI: Per HPI [] : Denies dysuria. [] Musculoskeletal: Denies back pain or joint pain. [] Integument: Denies rash. [] Neurologic: Denies headache, focal weakness or sensory changes. [] Endocrine: Denies polyuria or polydipsia. [] Lymphatic: Denies swollen glands. [] Psychiatric: Denies depression or anxiety. [] Heart Score: Risk Factors: Risk Factors: DM, Current or recent (<one month) smoker, HTN, HLP, family history of CAD, obesity. Risk Scores: Score 0 - 3: 2.5% MACE over next 6 weeks - Discharge Home Score 4 - 6: 20.3% MACE over next 6 weeks - Admit for Clinical Observation Score 7 - 10: 72.7% MACE over next 6 weeks - Early Invasive Strategies Current Medications: Current Medications Medications (Trade) Dose Ordered Sig/Kwaku Start Time Stop Time Status Last Admin Dose Admin Ondansetron HCl (Zofran) 4 mg 1X ONCE 01/21/20 22:30 01/21/20 22:31 DC 01/21/20 22:37 4 MG Sodium Chloride 1,000 ml @ 1,000 mls/hr 1X ONCE 01/21/20 22:30 01/21/20 23:29 01/21/20 22:30 1,000 MLS/HR Allergies: Allergies: Allergies Coded Allergies Type Severity Reaction Last Updated Verified Corticosteroids (Glucocorticoids) Allergy Severe facial swelling 05/26/19 Yes Penicillins Allergy Intermediate hives 05/26/19 Yes I S O L A T I O N *CONTACT* Allergy Unknown 06/03/19 Yes Physical Exam: PE: Constitutional: Well developed, well nourished, appears acutely ill. [] HENT: Normocephalic, atraumatic, bilateral external ears normal, oropharynx moist, no oral exudates, nose normal. [] Eyes: PERRLA, EOMI, conjunctiva normal, no discharge. [] Neck: Normal range of motion, no tenderness, supple, no stridor. [] Cardiovascular:Heart rate regular rhythm, no murmur [] Lungs & Thorax: Bilateral breath sounds clear to auscultation [] Abdomen: Bowel sounds normal, soft, no tenderness, no masses, no pulsatile masses. [] Skin: Warm, dry, no erythema, no rash. [] Back: No tenderness, no CVA tenderness. [] Extremities: No tenderness, no cyanosis, no clubbing, ROM intact, no edema. [] Neurologic: Alert and oriented X 3, normal motor function, normal sensory function, no focal deficits noted. [] Psychologic: Anxious [] Current Patient Data: Vital Signs: Vital Signs Date Time Temp Pulse Resp B/P (MAP) Pulse Ox O2 Delivery O2 Flow Rate FiO2 01/21/20 21:05 97.7 87 16 136/90 (105) 97 Room Air 97.7 EKG: EKG: [] Radiology/Procedures: Radiology/Procedures: [] Course & Med Decision Making: Course & Med Decision Making Pertinent Labs and Imaging studies reviewed. (See chart for details) [ED course: Evaluation reveals a 34-year-old female with intractable nausea and vomiting. She was given IV fluids and Zofran in the emergency department and after words she states she feels much better. We will go ahead and prescribe her Zofran to take at home.] Dragon Disclaimer: Dragon Disclaimer: This electronic medical record was generated, in whole or in part, using a voice recognition dictation system. Departure Departure Impression: Primary Impression: Nausea & vomiting Qualified Codes: R11.2 - Nausea with vomiting, unspecified Disposition: HOME, SELF-CARE Condition: IMPROVED Referrals: CAROLYN BROWN M.D. (PCP) Patient Instructions: Nausea and Vomiting Additional Instructions: Return to the emergency department with any new or concerning symptoms Scripts Ondansetron (ONDANSETRON ODT) 4 Mg Tab.rapdis 1 TAB PO PRN Q6-8HRS for VOMITING, #16 TAB Prov: WALDEMAR CARVALHO DO 01/21/20 WALDEMAR CARVALHO DO January 21, 2020 22:45
== END 2020-01-21 22:53 | disposition home or self-care (01) ==
LOC: ER 20:33
DX: R11.2 Nausea with vomiting, unspecified (principal); F17.200 Nicotine dependence, unspecified, uncomplicated; Z88.0 Allergy status to penicillin; Z88.8 Allergy status to other drugs, medicaments and biological substances; Z90.49 Acquired absence of other specified parts of digestive tract
CPT/HCPCS: 96374; 99283; J2405; J7030

== ENCOUNTER 2020-03-13 19:44 | Inpatient (IN) | payer OTHER ==
[~2020-03-13] VITALS: Ht 162.6 cm; Wt 68.0 kg
[~2020-03-13 19:44] MED LIST changes: +ONDA4TAB12 PO
[2020-03-13] MEDS ORDERED: IV NORMAL SALINE 1000ML BAG 1,000 ML IV SCH (19:56)
--- NOTE | 2020-03-13 20:00 | PHYS DOC ---
Past Medical History Past Medical History: No Pertinent History Past Surgical History: No Surgical History, Cholecystectomy Smoking Status: Current Every Day Smoker Alcohol Use: None Drug Use: None General Adult EDM: Chief Complaint: NAUSEA/VOMITING/DIARRHA HPI: HPI: Patient is a 35 year old female who presents with here by EMS and patient states she was out at the pool all day out in the sun yesterday and was drinking alcohol. She states later that night she began to feel bad like she was getting overheated and nauseated. Patient states that around noon today she began vomiting and has not been able to stop since. She states that she is not taking any medications at home to help her symptoms. She states nothing makes it worse or better. Patient was given 4 mg of Zofran IV by EMS prior to arrival. Patien t denies abdominal pain, diarrhea, fever, cough, shortness of breath, chest pain, dizziness, syncope, headache, numbness or tingling, vision changes. Patient has a history of a cholecystectomy, smoker, depression, anxiety. Review of Systems: Review of Systems: Constitutional: Denies fever or chills. [] Eyes: Denies change in visual acuity. [] HENT: Denies nasal congestion or sore throat. [] Respiratory: Denies cough or shortness of breath. [] Cardiovascular: Denies chest pain or edema. [] GI: Denies abdominal pain. + nausea, +vomiting, denies bloody stools or diarrhea. [] : Denies dysuria. [] Musculoskeletal: Denies back pain or joint pain. [] Integument: Denies rash. [] Neurologic: Denies headache, focal weakness or sensory changes. [] Endocrine: Denies polyuria or polydipsia. [] Lymphatic: Denies swollen glands. [] Psychiatric: Denies depression or anxiety. [] Heart Score: Risk Factors: Risk Factors: DM, Current or recent (<one month) smoker, HTN, HLP, family history of CAD, obesity. Risk Scores: Score 0 - 3: 2.5% MACE over next 6 weeks - Discharge Home Score 4 - 6: 20.3% MACE over next 6 weeks - Admit for Clinical Observation Score 7 - 10: 72.7% MACE over next 6 weeks - Early Invasive Strategies Allergies: Allergies: Allergies Coded Allergies Type Severity Reaction Last Updated Verified Corticosteroids (Glucocorticoids) Allergy Severe facial swelling 05/26/19 Yes Penicillins Allergy Intermediate hives 05/26/19 Yes I S O L A T I O N *CONTACT* Allergy Unknown 06/03/19 Yes Physical Exam: PE: Constitutional: Well developed, well nourished, no acute distress, non-toxic appearance. [] HENT: Normocephalic, atraumatic, bilateral external ears normal, oropharynx moist, no oral exudates, nose normal. [] Eyes: PERRLA, EOMI, conjunctiva normal, no discharge. [] Neck: Normal range of motion, no tenderness, supple, no stridor. [] Cardiovascular:Heart rate regular rhythm, no murmur [] Lungs & Thorax: Bilateral breath sounds clear to auscultation [] Abdomen: Bowel sounds normal, soft, no tenderness, no masses, no pulsatile masses. [] Skin: Warm, dry, no erythema, no rash. [] Back: No tenderness, no CVA tenderness. [] Extremities: No tenderness, no cyanosis, no clubbing, ROM intact, no edema. [] Neurologic: Alert and oriented X 3, normal motor function, normal sensory function, no focal deficits noted. [] Psychologic: Affect normal, judgement normal, mood normal. Normal Physical Exam[] EKG: EK and read by Dr Ren as Sinus Rhythm and no STEMI[] Radiology/Procedures: Radiology/Procedures: [] Course & Med Decision Making: Course & Med Decision Making Pertinent Labs and Imaging studies reviewed. (See chart for details) Alert and oriented. Speaks in full complete sentences. Patient is vomiting upon arrival via EMS. Abdomen is soft and nontender. No CVA tenderness. Skin pink warm and dry. Patient's potassium is 2.6. Her EKG is sinus rhythm but does show changes due to her low potassium. I have ordered potassium 40meq IV and 2 g of magnesium IV. I have also ordered 40meq of potassium p.o. but the patient is refusing to take it. I have spoken to Dr. Lopez for admission. I have spoken to Dr. Ren concerning this patient and the care plan. Dr. 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 [] Dragon Disclaimer: Dragon Disclaimer: This electronic medical record was generated, in whole or in part, using a voice recognition dictation system. Departure Departure Impression: Primary Impression: Hypokalemia Disposition: ADMITTED INPATIENT Admitting Physician: SUZETTE Condition: STABLE Referrals: CAROLYN BROWN M.D. (PCP) Justicifation of Admission Dx: Justifications for Admission: Justification of Admission Dx: Yes Comments: hypokalemia CHAVA ADAMS SERVICE AGENT Mar 13, 2020 20:00
[2020-03-13 20:08] LABS: BASO # 0.1 x10^3/uL (0.0-0.2); BASO % 0 % (0-3); EOS % 0 % (0-3); HEMATOCRIT 42.2 % (36.0-47.0); HEMOGLOBIN 14.7 g/dL (12.0-15.5); LYMPH # 1.4 x10^3/uL (1.0-4.8); LYMPH % 8 % (24-48); MEAN CORPUSCULAR HEMOGLOBIN 34 pg (25-35); MEAN CORPUSCULAR HGB CONC 35 g/dL (31-37); MEAN CORPUSCULAR VOLUME 97 fL (79-100); MONO # 1.2 x10^3/uL (0.0-1.1); MONO % 7 % (0-9); NEUT # 15.7 x10^3/uL (1.8-7.7); NEUT % 85 % (31-73); PLATELET COUNT 385 x10^3/uL (140-400); RED BLOOD COUNT 4.34 x10^6/uL (3.50-5.40); RED CELL DISTRIBUTION WIDTH 15.2 % (11.5-14.5); WHITE BLOOD COUNT 18.4 x10^3/uL (4.0-11.0)
[2020-03-13] MEDS ORDERED: PROCHLORPERAZINE 10 MG/2 ML VIAL. IV ONE (20:15)
[2020-03-13 20:22] LABS: ALBUMIN/GLOBULIN RATIO 0.7 (1.0-1.7); CALCIUM 8.9 mg/dL (8.5-10.1); CREATININE 1.3 mg/dL (0.6-1.0); GFR 46.3; TOTAL BILIRUBIN 0.5 mg/dL (0.2-1.0); TOTAL PROTEIN 7.6 g/dL (6.4-8.2)
[2020-03-13 20:36] LABS: % BANDS 3 % (0-9); % LYMPHS 7 % (24-48); % MONOS 5 % (0-10); % SEGS 85 % (35-66); PLT ESTIMATE ADEQUATE (ADEQUATE)
[2020-03-13] MEDS ORDERED: POTASSIUM CHLORIDE 20 MEQ TABLET.ER. PO ONE (20:45)
[2020-03-13] MEDS ORDERED: ONDANSETRON PF 4 MG/2 ML VIAL. IVP ONE (20:45)
[2020-03-13] MEDS ORDERED: IV NORMAL SALINE 1000ML BAG 1,000 ML IV ONE (20:45)
[2020-03-13] MEDS ORDERED: MAGNESIUM SULFATE 2GM 50 ML IV ONE (21:00)
[2020-03-13] MEDS: POTASSIUM CHLORIDE 10MEQ 100 ML IV SCH ×3 (21:00→23:07)
[2020-03-13 21:07] LABS: POTASSIUM 2.6 mmol/L (3.5-5.1)
[2020-03-14] MEDS: POTASSIUM CHLORIDE 10MEQ 100 ML IV SCH ×5 (00:31→14:17)
[2020-03-14] MEDS: IV NORMAL SALINE 1000ML BAG 1,000 ML IV SCH ×2 (02:11→12:14)
[2020-03-14 03:30] VITALS: BP 99/57
[2020-03-14] MEDS ORDERED: PROCHLORPERAZINE 10 MG/2 ML VIAL. IV ONE (07:30)
[2020-03-14] MEDS ORDERED: traMADol 50 MG TABLET PO PRN (08:30)
[2020-03-14] MEDS ORDERED: ONDANSETRON ODT 4 MG TAB.RAPDIS. PO PRN (08:30)
[2020-03-14] MEDS ORDERED: MAGNESIUM SULFATE 2GM 50 ML IV ONE (08:30)
--- NOTE | 2020-03-14 08:32 | PDOC1 ---
History and Physical Date of Admission Date of Admission DATE: 03/14/20 TIME: 08:27 Identification/Chief Complaint Chief Complaint Weakness Source Source: Patient History of Present Illness History of Present Illness Ms Lafleur is a 35yo F w/ PMHx osteoarthritis of bilateral ankles who comes to ED on 03/13/2020 feeling overheated and nauseated with intractable vomiting. She states nothing makes it worse or better. Patient was given 4 mg of Zofran IV by EMS prior to arrival. Patient denies abdominal pain, diarrhea, fever, cough, shortness of breath, chest pain, dizziness, syncope, headache, numbness or tingling, vision changes. She was out of the pool all day on 03/12 notes she was drinking and felt overheated at the time. Patient's potassium is 2.6. Her EKG is sinus rhythm but does show changes due to her low potassium. Started on potassium 40meq IV and 2 g of magnesium IV. Unable to take PO potassium due to vomiting. Admitted for further care. Past Medical History Cardiovascular: No pertinent hx Pulmonary: No pertinent hx GI: No pertinent hx Heme/Onc: No pertinent hx Hepatobiliary: No pertinent hx Psych: No pertinent hx Rheumatologic: No pertinent hx Infectious disease: No pertinent hx Renal/: No pertinent hx Endocrine: No pertinent hx Past Surgical History Past Surgical History: Cholecystectomy, Other Family History Family History: Family History Unknown Social History Smoke: No ALCOHOL: rare Drugs: None Current Problem List Problem List Problems Medical Problems: (1) Hypokalemia Status: Acute Current Medications Current Medications Current Medications Sodium Chloride 1,000 ml @ 1,000 mls/hr Q1H IV Last administered on 03/13/20at 20:04; Start 03/13/20 at 19:56; Stop 03/13/20 at 20:55; Status DC Prochlorperazine Edisylate (Compazine) 10 mg 1X ONCE IV Last administered on 03/13/20at 20:04; Start 03/13/20 at 20:15; Stop 03/13/20 at 20:16; Status DC Potassium Chloride/Water 100 ml @ 100 mls/hr Q1H IV Last administered on 03/14/20at 00:31; Start 03/13/20 at 21:00; Stop 03/14/20 at 00:59; Status DC Magnesium Sulfate 50 ml @ 25 mls/hr 1X ONCE IV Last administered on 03/13/20at 21:01; Start 03/13/20 at 21:00; Stop 03/13/20 at 22:59; Status DC Potassium Chloride (Klor-Con) 40 meq 1X ONCE PO ; Start 03/13/20 at 20:45; S top 03/13/20 at 20:46; Status DC Ondansetron HCl (Zofran) 4 mg 1X ONCE IVP Last administered on 03/13/20at 21:00; Start 03/13/20 at 20:45; Stop 03/13/20 at 20:46; Status DC Sodium Chloride 1,000 ml @ 1,000 mls/hr 1X ONCE IV Last administered on 03/13/20at 20:45; Start 03/13/20 at 20:45; Stop 03/13/20 at 21:44; Status DC Sodium Chloride 1,000 ml @ 100 mls/hr Q10H IV Last administered on 03/14/20at 02:11; Start 03/13/20 at 20:44; Stop 03/14/20 at 20:43 Prochlorperazine Edisylate (Compazine) 5 mg PRN Q6HRS ONCE IV ; Start 03/14/20 at 07:30; Stop 03/14/20 at 07:31; Status DC Active Scripts Active Ondansetron Odt (Ondansetron) 4 Mg Tab.rapdis 1 Tab PO PRN Q6-8HRS Tramadol Hcl 50 Mg Tablet 50 Mg PO Q4HRS PRN 6 Days Doxycycline Hyclate 100 Mg Capsule 1 Cap PO BID 7 Days Fenofibrate (Fenofibrate Nanocrystallized) 145 Mg Tablet 1 Tab PO QHS Amitriptyline Hcl 10 Mg Tablet 1 Tab PO QHS 90 Days Celexa (Citalopram Hydrobromide) 20 Mg Tablet 1 Tab PO QHS Allergies Allergies: Coded Allergies: Corticosteroids (Glucocorticoids) (Verified Allergy, Severe, facial swelli ng, 05/26/19) Penicillins (Verified Allergy, Intermediate, hives, 05/26/19) I S O L A T I O N *CONTACT* (Verified Allergy, Unknown, 06/03/19) mrsa ROS General: YES: Fatigue, Malaise; No: Chills, Night Sweats, Appetite, Other PSYCHOLOGICAL ROS: No: Anxiety, Behavioral Disorder, Concentration difficultie, Decreased libido, Depression, Disorientation, Hallucinations, Hostility, Irritablity, Memory difficulties, Mood Swings, Obsessive thoughts, Physical abuse, Sexual abuse, Sleep disturbances, Suicidal ideation, Other Eyes: No Blurry vision, No Decreased vision, No Double vision, No Dry eyes, No Excessive tearing, No Eye Pain, No Itchy Eyes, No Loss of vision, No Photophobia, No Scotomata, No Uses contacts, No Uses glasses, No Other HEENT: No: Heacaches, Visual Changes, Hearing change, Nasal congestion, Nasal discharge, Oral lesions, Sinus pain, Sore Throat, Epistaxis, Sneezing, Snoring, Tinnitus, Vertigo, Vocal changes, Other ALLERGY AND IMMUNOLOGY: No: Hives, Insect Bite Sensitivity, Itchy/Watery Eyes, Nasal Congestion, Post Nasal Drip, Seasonal Allergies, Other Respiratory: No: Cough, Hemoptysis, Orthopnea, Pleuritic Pain, Shortness of breath, SOB with excertion, Sputum Changes, Stridor, Tachypnea, Wheezing, Other Cardiovascular: No Chest Pain, No Palpitations, No Orthopnea, No Paroxysmal Noc. Dyspnea, No Edema, No Lt Headedness, No Other Gastrointestinal: Yes Nausea, Yes Vomiting; No Abdominal Pain, No Diarrhea, No Constipation, No Melena, No Hematochezia, No Other Genitourinary: No Dysuria, No Frequency, No Incontinence, No Hematuria, No Retention, No Discharge, No Urgency, No Pain, No Flank Pain, No Other, No , No , No , No , No , No , No Musculoskeletal: Yes Muscular Weakness; No Gait Disturbance, No Joint Pain, No Joint Stiffness, No Joint Swelling, No Muscle Pain, No Pain In:, No Swelling In:, No Other Neurological: No Behavorial Changes, No Bowel/Bladder ControlChng, No Confusion, No Dizziness, No Gait Disturbance, No Headaches, No Impaired Coord/balance, No Memory Loss, No Numbness/Tingling, No Seizures, No Speech Problems, No Tremors, No Visual Changes, No Weakness, No Other Skin: No Dry Skin, No Eczema, No Hair Changes, No Lumps, No Mole Changes, No Mottling, No Nail Changes, No Pruritus, No Rash, No Skin Lesion Changes, No Other, No Acne Physical Exam General: Alert, Oriented X3, Cooperative, No acute distress HEENT: Atraumatic, PERRLA, EOMI, Mucous membr. moist/pink Lungs: Clear to auscultation, Normal air movement Heart: S1S2, RRR, no thrills, no rubs, no gallops, no murmurs Abdomen: Normal bowel sounds, Soft, No tenderness, No hepatosplenomegaly, No masses Rectal Exam: not examined Extremities: No clubbing, No cyanosis, No edema, Normal pulses, No tenderness/swelling Skin: No rashes, No breakdown, No significant lesion Neuro: Normal gait, Normal speech, Strength at 5/5 X4 ext, Normal tone, Sensation intact, Cranial nerves 3-12 NL, Reflexes 2+ Psych/Mental Status: Mental status NL, Mood NL Vitals Vitals Vital Signs Date Time Temp Pulse Resp B/P (MAP) Pulse Ox O2 Delivery O2 Flow Rate FiO2 03/14/20 03:30 97.8 88 19 99/57 (71) 96 Room Air 97.8 Labs Labs Laboratory Tests Test 03/13/20 19:54 White Blood Count 18.4 x10^3/uL (4.0-11.0) Red Blood Count 4.34 x10^6/uL (3.50-5.40) Hemoglobin 14.7 g/dL (12.0-15.5) Hematocrit 42.2 % (36.0-47.0) Mean Corpuscular Volume 97 fL (79-100) Mean Corpuscular Hemoglobin 34 pg (25-35) Mean Corpuscular Hemoglobin Concent 35 g/dL (31-37) Red Cell Distribution Width 15.2 % (11.5-14.5) Platelet Count 385 x10^3/uL (140-400) Neutrophils (%) (Auto) 85 % (31-73) Lymphocytes (%) (Auto) 8 % (24-48) Monocytes (%) (Auto) 7 % (0-9) Eosinophils (%) (Auto) 0 % (0-3) Basophils (%) (Auto) 0 % (0-3) Neutrophils # (Auto) 15.7 x10^3/uL (1.8-7.7) Lymphocytes # (Auto) 1.4 x10^3/uL (1.0-4.8) Monocytes # (Auto) 1.2 x10^3/uL (0.0-1.1) Eosinophils # (Auto) 0.0 x10^3/uL (0.0-0.7) Basophils # (Auto) 0.1 x10^3/uL (0.0-0.2) Segmented Neutrophils % 85 % (35-66) Band Neutrophils % 3 % (0-9) Lymphocytes % 7 % (24-48) Monocytes % 5 % (0-10) Platelet Estimate Adequate (ADEQUATE) Prothrombin Time 13.0 SEC (11.7-14.0) Prothromb Time International Ratio 1.0 (0.8-1.1) Sodium Level 137 mmol/L (136-145) Potassium Level 2.6 mmol/L (3.5-5.1) Chloride Level 95 mmol/L (98-107) Carbon Dioxide Level 26 mmol/L (21-32) Anion Gap 16 (6-14) Blood Urea Nitrogen 3 mg/dL (7-20) Creatinine 1.3 mg/dL (0.6-1.0) Estimated GFR (Cockcroft-Gault) 46.3 BUN/Creatinine Ratio 2 (6-20) Glucose Level 208 mg/dL (70-99) Calcium Level 8.9 mg/dL (8.5-10.1) Magnesium Level 1.4 mg/dL (1.8-2.4) Total Bilirubin 0.5 mg/dL (0.2-1.0) Aspartate Amino Transf (AST/SGOT) 55 U/L (15-37) Alanine Aminotransferase (ALT/SGPT) 34 U/L (14-59) Alkaline Phosphatase 112 U/L (46-116) Creatine Kinase 54 U/L (26-192) Troponin I Quantitative < 0.017 ng/mL (0.000-0.055) Total Protein 7.6 g/dL (6.4-8.2) Albumin 3.0 g/dL (3.4-5.0) Albumin/Globulin Ratio 0.7 (1.0-1.7) Lipase 53 U/L (73-393) Acetone Level Neg (NEG) Laboratory Tests Test 03/13/20 19:54 White Blood Count 18.4 x10^3/uL (4.0-11.0) Red Blood Count 4.34 x10^6/uL (3.50-5.40) Hemoglobin 14.7 g/dL (12.0-15.5) Hematocrit 42.2 % (36.0-47.0) Mean Corpuscular Volume 97 fL (79-100) Mean Corpuscular Hemoglobin 34 pg (25-35) Mean Corpuscular Hemoglobin Concent 35 g/dL (31-37) Red Cell Distribution Width 15.2 % (11.5-14.5) Platelet Count 385 x10^3/uL (140-400) Neutrophils (%) (Auto) 85 % (31-73) Lymphocytes (%) (Auto) 8 % (24-48) Monocytes (%) (Auto) 7 % (0-9) Eosinophils (%) (Auto) 0 % (0-3) Basophils (%) (Auto) 0 % (0-3) Neutrophils # (Auto) 15.7 x10^3/uL (1.8-7.7) Lymphocytes # (Auto) 1.4 x10^3/uL (1.0-4.8) Monocytes # (Auto) 1.2 x10^3/uL (0.0-1.1) Eosinophils # (Auto) 0.0 x10^3/uL (0.0-0.7) Basophils # (Auto) 0.1 x10^3/uL (0.0-0.2) Segmented Neutrophils % 85 % (35-66) Band Neutrophils % 3 % (0-9) Lymphocytes % 7 % (24-48) Monocytes % 5 % (0-10) Platelet Estimate Adequate (ADEQUATE) Prothrombin Time 13.0 SEC (11.7-14.0) Prothromb Time International Ratio 1.0 (0.8-1.1) Sodium Level 137 mmol/L (136-145) Potassium Level 2.6 mmol/L (3.5-5.1) Chloride Level 95 mmol/L (98-107) Carbon Dioxide Level 26 mmol/L (21-32) Anion Gap 16 (6-14) Blood Urea Nitrogen 3 mg/dL (7-20) Creatinine 1.3 mg/dL (0.6-1.0) Estimated GFR (Cockcroft-Gault) 46.3 BUN/Creatinine Ratio 2 (6-20) Glucose Level 208 mg/dL (70-99) Calcium Level 8.9 mg/dL (8.5-10.1) Magnesium Level 1.4 mg/dL (1.8-2.4) Total Bilirubin 0.5 mg/dL (0.2-1.0) Aspartate Amino Transf (AST/SGOT) 55 U/L (15-37) Alanine Aminotransferase (ALT/SGPT) 34 U/L (14-59) Alkaline Phosphatase 112 U/L (46-116) Creatine Kinase 54 U/L (26-192) Troponin I Quantitative < 0.017 ng/mL (0.000-0.055) Total Protein 7.6 g/dL (6.4-8.2) Albumin 3.0 g/dL (3.4-5.0) Albumin/Globulin Ratio 0.7 (1.0-1.7) Lipase 53 U/L (73-393) Acetone Level Neg (NEG) VTE Prophylaxis Ordered VTE Prophylaxis Devices: No VTE Pharmacological Prophylaxi: No Assessment/Plan Assessment/Plan A/P: Heat exhaustion - improving with IVF Hypomagnesemia - Will replace IV Hypokalemia - symptomatically weak, required IV replacement and PO replacement, replaced mag as well H/o underweight - taking celexa and amitryptiline outpatient for weight gain FEN - General diet PPX - ambulatory FULL CODE Dispo - inpatient Justicifation of Admission Dx: Justifications for Admission: Justification of Admission Dx: Yes MARIA TERESA ERICKSON MD Mar 14, 2020 08:32
[2020-03-14] MEDS ORDERED: PROCHLORPERAZINE 10 MG/2 ML VIAL. IV PRN (08:45)
[2020-03-14 10:06] LABS: ALBUMIN 2.3 g/dL (3.4-5.0); ALBUMIN/GLOBULIN RATIO 0.7 (1.0-1.7); CALCIUM 7.6 mg/dL (8.5-10.1); CREATININE 0.7 mg/dL (0.6-1.0); GFR 94.7; TOTAL BILIRUBIN 0.5 mg/dL (0.2-1.0); TOTAL PROTEIN 5.8 g/dL (6.4-8.2)
[2020-03-14 10:08] LABS: POTASSIUM 2.5 mmol/L (3.5-5.1)
[2020-03-14] MEDS ORDERED: POTASSIUM CHLORIDE 20 MEQ TABLET.ER. PO ONE ×3 (10:21→15:30)
--- NOTE | 2020-03-14 11:45 | EKG ---
[facility] [address] [place] [address] Test Date: 2020-03-13 Test Time: 20:05:55 Pat Name: GENEVIEVE ALANIZ Department: Room: Gender: F Relay Operator: : [id number] Requested By: CHAVA ADAMS Order Number: [id number] Reading MD: Measurements Intervals [place] Rate: 79 P: ID: QRS: -48 QRSD: 114 T: -31 QT: 460 QTc: 529 Interpretive Statements ACCELERATED JUNCTIONAL RHYTHM ABNORMAL LEFT AXIS DEVIATION INCOMPLETE RIGHT BUNDLE BRANCH BLOCK QRS(T) CONTOUR ABNORMALITY CONSISTENT WITH INFERIOR INFARCT AGE UNDETERMINED T ABNORMALITY IN ANTERIOR LEADS ABNORMAL ECG RI6.02 No previous ECG available for comparison
[2020-03-14 15:21] LABS: CALCIUM 7.4 mg/dL (8.5-10.1); CREATININE 0.7 mg/dL (0.6-1.0); GFR 94.7; MAGNESIUM 2.7 mg/dL (1.8-2.4); POTASSIUM 3.2 mmol/L (3.5-5.1)
[2020-03-14 15:30] VITALS: BP 110/70
--- NOTE | 2020-03-14 15:34 | PDOC3 ---
Discharge Summary Visit Information Date of Admission: Mar 13, 2020 Date of Discharge: Mar 14, 2020 Admitting Diagnosis: Intractable nausea and vomiting Final Diagnosis Problems Medical Problems: (1) Hypokalemia Status: Acute Brief Hospital Course Allergies Allergies Coded Allergies Type Severity Reaction Last Updated Verified Corticosteroids (Glucocorticoids) Allergy Severe facial swelling 05/26/19 Yes Penicillins Allergy Intermediate hives 05/26/19 Yes I S O L A T I O N *CONTACT* Allergy Unknown 06/03/19 Yes Vital Signs Vital Signs Date Time Temp Pulse Resp B/P (MAP) Pulse Ox O2 Delivery O2 Flow Rate FiO2 03/14/20 12:15 74 106/69 (81) 95 Room Air 03/14/20 03:30 97.8 19 97.8 Lab Results Laboratory Tests Test 03/13/20 19:54 03/14/20 09:41 03/14/20 14:17 White Blood Count 18.4 x10^3/uL (4.0-11.0) Red Blood Count 4.34 x10^6/uL (3.50-5.40) Hemoglobin 14.7 g/dL (12.0-15.5) Hematocrit 42.2 % (36.0-47.0) Mean Corpuscular Volume 97 fL (79-100) Mean Corpuscular Hemoglobin 34 pg (25-35) Mean Corpuscular Hemoglobin Concent 35 g/dL (31-37) Red Cell Distribution Width 15.2 % (11.5-14.5) Platelet Count 385 x10^3/uL (140-400) Neutrophils (%) (Auto) 85 % (31-73) Lymphocytes (%) (Auto) 8 % (24-48) Monocytes (%) (Auto) 7 % (0-9) Eosinophils (%) (Auto) 0 % (0-3) Basophils (%) (Auto) 0 % (0-3) Neutrophils # (Auto) 15.7 x10^3/uL (1.8-7.7) Lymphocytes # (Auto) 1.4 x10^3/uL (1.0-4.8) Monocytes # (Auto) 1.2 x10^3/uL (0.0-1.1) Eosinophils # (Auto) 0.0 x10^3/uL (0.0-0.7) Basophils # (Auto) 0.1 x10^3/uL (0.0-0.2) Segmented Neutrophils % 85 % (35-66) Band Neutrophils % 3 % (0-9) Lymphocytes % 7 % (24-48) Monocytes % 5 % (0-10) Platelet Estimate Adequate (ADEQUATE) Prothrombin Time 13.0 SEC (11.7-14.0) Prothromb Time International Ratio 1.0 (0.8-1.1) Sodium Level 137 mmol/L (136-145) 141 mmol/L (136-145) 140 mmol/L (136-145) Potassium Level 2.6 mmol/L (3.5-5.1) 2.5 mmol/L (3.5-5.1) 3.2 mmol/L (3.5-5.1) Chloride Level 95 mmol/L (98-107) 104 mmol/L (98-107) 106 mmol/L (98-107) Carbon Dioxide Level 26 mmol/L (21-32) 28 mmol/L (21-32) 30 mmol/L (21-32) Anion Gap 16 (6-14) 9 (6-14) 4 (6-14) Blood Urea Nitrogen 3 mg/dL (7-20) 2 mg/dL (7-20) 2 mg/dL (7-20) Creatinine 1.3 mg/dL (0.6-1.0) 0.7 mg/dL (0.6-1.0) 0.7 mg/dL (0.6-1.0) Estimated GFR (Cockcroft-Gault) 46.3 94.7 94.7 BUN/Creatinine Ratio 2 (6-20) 3 (6-20) Glucose Level 208 mg/dL (70-99) 101 mg/dL (70-99) 93 mg/dL (70-99) Calcium Level 8.9 mg/dL (8.5-10.1) 7.6 mg/dL (8.5-10.1) 7.4 mg/dL (8.5-10.1) Magnesium Level 1.4 mg/dL (1.8-2.4) 2.7 mg/dL (1.8-2.4) Total Bilirubin 0.5 mg/dL (0.2-1.0) 0.5 mg/dL (0.2-1.0) Aspartate Amino Transf (AST/SGOT) 55 U/L (15-37) 39 U/L (15-37) Alanine Aminotransferase (ALT/SGPT) 34 U/L (14-59) 19 U/L (14-59) Alkaline Phosphatase 112 U/L (46-116) 84 U/L (46-116) Creatine Kinase 54 U/L (26-192) Troponin I Quantitative < 0.017 ng/mL (0.000-0.055) Total Protein 7.6 g/dL (6.4-8.2) 5.8 g/dL (6.4-8.2) Albumin 3.0 g/dL (3.4-5.0) 2.3 g/dL (3.4-5.0) Albumin/Globulin Ratio 0.7 (1.0-1.7) 0.7 (1.0-1.7) Lipase 53 U/L (73-393) Acetone Level Neg (NEG) Laboratory Tests Test 03/13/20 19:54 03/14/20 09:41 03/14/20 14:17 White Blood Count 18.4 x10^3/uL (4.0-11.0) Red Blood Count 4.34 x10^6/uL (3.50-5.40) Hemoglobin 14.7 g/dL (12.0-15.5) Hematocrit 42.2 % (36.0-47.0) Mean Corpuscular Volume 97 fL (79-100) Mean Corpuscular Hemoglobin 34 pg (25-35) Mean Corpuscular Hemoglobin Concent 35 g/dL (31-37) Red Cell Distribution Width 15.2 % (11.5-14.5) Platelet Count 385 x10^3/uL (140-400) Neutrophils (%) (Auto) 85 % (31-73) Lymphocytes (%) (Auto) 8 % (24-48) Monocytes (%) (Auto) 7 % (0-9) Eosinophils (%) (Auto) 0 % (0-3) Basophils (%) (Auto) 0 % (0-3) Neutrophils # (Auto) 15.7 x10^3/uL (1.8-7.7) Lymphocytes # (Auto) 1.4 x10^3/uL (1.0-4.8) Monocytes # (Auto) 1.2 x10^3/uL (0.0-1.1) Eosinophils # (Auto) 0.0 x10^3/uL (0.0-0.7) Basophils # (Auto) 0.1 x10^3/uL (0.0-0.2) Segmented Neutrophils % 85 % (35-66) Band Neutrophils % 3 % (0-9) Lymphocytes % 7 % (24-48) Monocytes % 5 % (0-10) Platelet Estimate Adequate (ADEQUATE) Prothrombin Time 13.0 SEC (11.7-14.0) Prothromb Time International Ratio 1.0 (0.8-1.1) Sodium Level 137 mmol/L (136-145) 141 mmol/L (136-145) 140 mmol/L (136-145) Potassium Level 2.6 mmol/L (3.5-5.1) 2.5 mmol/L (3.5-5.1) 3.2 mmol/L (3.5-5.1) Chloride Level 95 mmol/L (98-107) 104 mmol/L (98-107) 106 mmol/L (98-107) Carbon Dioxide Level 26 mmol/L (21-32) 28 mmol/L (21-32) 30 mmol/L (21-32) Anion Gap 16 (6-14) 9 (6-14) 4 (6-14) Blood Urea Nitrogen 3 mg/dL (7-20) 2 mg/dL (7-20) 2 mg/dL (7-20) Creatinine 1.3 mg/dL (0.6-1.0) 0.7 mg/dL (0.6-1.0) 0.7 mg/dL (0.6-1.0) Estimated GFR (Cockcroft-Gault) 46.3 94.7 94.7 BUN/Creatinine Ratio 2 (6-20) 3 (6-20) Glucose Level 208 mg/dL (70-99) 101 mg/dL (70-99) 93 mg/dL (70-99) Calcium Level 8.9 mg/dL (8.5-10.1) 7.6 mg/dL (8.5-10.1) 7.4 mg/dL (8.5-10.1) Magnesium Level 1.4 mg/dL (1.8-2.4) 2.7 mg/dL (1.8-2.4) Total Bilirubin 0.5 mg/dL (0.2-1.0) 0.5 mg/dL (0.2-1.0) Aspartate Amino Transf (AST/SGOT) 55 U/L (15-37) 39 U/L (15-37) Alanine Aminotransferase (ALT/SGPT) 34 U/L (14-59) 19 U/L (14-59) Alkaline Phosphatase 112 U/L (46-116) 84 U/L (46-116) Creatine Kinase 54 U/L (26-192) Troponin I Quantitative < 0.017 ng/mL (0.000-0.055) Total Protein 7.6 g/dL (6.4-8.2) 5.8 g/dL (6.4-8.2) Albumin 3.0 g/dL (3.4-5.0) 2.3 g/dL (3.4-5.0) Albumin/Globulin Ratio 0.7 (1.0-1.7) 0.7 (1.0-1.7) Lipase 53 U/L (73-393) Acetone Level Neg (NEG) Brief Hospital Course Ms Lafleur is a 35yo F w/ PMHx osteoarthritis of bilateral ankles who comes to ED on 03/13/2020 feeling overheated and nauseated with intractable vomiting. She states nothing makes it worse or better. Patient was given 4 mg of Zofran IV by EMS prior to arrival. Patient denies abdominal pain, diarrhea, fever, cough, shortness of breath, chest pain, dizziness, syncope, headache, numbness or tingling, vision changes. She was out of the pool all day on 03/12 notes she was drinking and felt overheated at the time. Patient's potassium is 2.6. Her EKG is sinus rhythm but does show changes due t o her low potassium. Started on potassium 40meq IV and 2 g of magnesium IV. Unable to take PO potassium due to vomiting. Admitted for further care. Her potassium improved to 3.2 after aggressive IV replacement along with magnesium and she felt significantly improved. Problem list: Heat exhaustion - improving with IVF Hypomagnesemia - Will replace IV Hypokalemia - symptomatically weak, required IV replacement and PO replacement, replaced mag as well H/o underweight - taking celexa and amitryptiline outpatient for weight gain Greater than 135 minutes spent on same day admit and d/c Discharge Information Condition at Discharge: Improved Follow Up: Weeks (1) Disposition/Orders: D/C to Home Scheduled Amitriptyline Hcl (Amitriptyline Hcl) 10 Mg Tablet, 1 TAB PO QHS for underweight for 90 Days, #90 Ref 1 Prescribed by: MARIA TERESA ERICKSON MD on 05/27/19855 Last Action: Continued on 03/14/20829 by MARIA TERESA ERICKSON MD Citalopram Hydrobromide (Celexa) 20 Mg Tablet, 1 TAB PO QHS for underweight, #90 Ref 3 Prescribed by: MARIA TERESA ERICKSON MD on 05/27/19855 Last Action: Continued on 03/14/20829 by MARIA TERESA ERICKSON MD Fenofibrate Nanocrystallized (Fenofibrate) 145 Mg Tablet, 1 TAB PO QHS for s/p timmy, #90 Ref 5 Prescribed by: MARIA TERESA ERICKSON MD on 05/27/19855 Ondansetron (Ondansetron Odt) 4 Mg Tab.rapdis, 1 TAB PO PRN Q6-8HRS for VOMITING, #16 Prescribed by: WALDEMAR CARVALHO D.O. on 01/21/202244 Last Action: Continued on 03/14/20829 by MARIA TERESA ERICKSON MD Discontinued Medications Doxycycline Hyclate (Doxycycline Hyclate) 100 Mg Capsule, 1 CAP PO BID for MRSA abscess for 7 Days, #14 Prescribed by: MARIA TERESA ERICKSON MD on 05/27/191643 Tramadol Hcl (Tramadol Hcl) 50 Mg Tablet, 50 MG PO Q4HRS PRN for PAIN for 6 Days, #24 Prescribed by: MARIA TERESA ERICKSON MD on 05/27/191643 Last Action: Continued on 03/14/20829 by MARIA TERESA ERICKSON MD Justicifation of Admission Dx: Justifications for Admission: Justification of Admission Dx: Yes MARIA TERESA ERICKSON MD Mar 14, 2020 15:34
[2020-03-14] MEDS ORDERED: AMITRIPTYLINE HCL 10 MG TABLET. PO SCH (21:00)
[2020-03-14] MEDS ORDERED: CITALOPRAM 20 MG TABLET. PO SCH (21:00)
== END 2020-03-14 15:35 | disposition home or self-care (01) | DRG 923 ==
LOC: ER 19:44 → ED HOLD 22:25
PROVIDERS: ADMIT Family Medicine; ATTEND Family Medicine
DX: T67.5XXA Heat exhaustion, unspecified, initial encounter (principal); E83.42 Hypomagnesemia; E87.6 Hypokalemia; M19.071 Primary osteoarthritis, right ankle and foot; M19.072 Primary osteoarthritis, left ankle and foot; X30.XXXA Exposure to excessive natural heat, initial encounter; Z87.891 Personal history of nicotine dependence; Z90.49 Acquired absence of other specified parts of digestive tract; F32.9 Major depressive disorder, single episode, unspecified; F41.9 Anxiety disorder, unspecified; R63.6 Underweight; Z20.828 Contact with and (suspected) exposure to other viral communicable diseases; Z68.25 Body mass index [BMI] 25.0-25.9, adult; Z88.8 Allergy status to other drugs, medicaments and biological substances; Z79.899 Other long term (current) drug therapy
CPT/HCPCS: 36415; 80048; 80053; 82010; 82550; 83690; 83735; 84484; 85007; 85025; 85610; 93005; 96361; 96374; 96375; 99285; J0780; J2405; J3475; J3480; J7030; U0003-CS

== ENCOUNTER 2020-03-20 20:22 | Inpatient (IN) | payer OTHER ==
[~2020-03-20] VITALS: Ht 170.2 cm; Wt 64.0 kg
--- NOTE | 2020-03-20 20:44 | PHYS DOC ---
Past Medical History Past Medical History: Anxiety, Depression, High Cholesterol Past Surgical History: Cholecystectomy Additional Past Surgical Histo: ankle Smoking Status: Current Every Day Smoker Alcohol Use: Occasionally Drug Use: None General Adult EDM: Chief Complaint: NAUSEA/VOMITING/DIARRHA HPI: HPI: Patient is a 35 year old female presents with nausea and vomiting. She states is been going on for about 1 month. She was seen here 1 week ago and had low potassium and had to be admitted for placement. She states she was better for 2 to 3 days but over the last 4 days been vomiting again. She states she has not been taking in oral liquids or food. She denies any muscle spasms or pain. She denies any diarrhea. No abdominal pain. She had a COVID test 1 week ago that was negative. Review of Systems: Review of Systems: Constitutional: Denies fever or chills. [] Eyes: Denies change in visual acuity. [] HENT: Denies nasal congestion or sore throat. [] Respiratory: Denies cough or shortness of breath. [] Cardiovascular: Denies chest pain or edema. [] GI: Denies abdominal pain, nausea, vomiting, bloody stools or diarrhea. [] : Denies dysuria. [] Musculoskeletal: Denies back pain or joint pain. [] Integument: Denies rash. [] Neurologic: Denies headache, focal weakness or sensory changes. [] Endocrine: Denies polyuria or polydipsia. [] Lymphatic: Denies swollen glands. [] Psychiatric: Denies depression or anxiety. [] Heart Score: Risk Factors: Risk Factors: DM, Current or recent (<one month) smoker, HTN, HLP, family history of CAD, obesity. Risk Scores: Score 0 - 3: 2.5% MACE over next 6 weeks - Discharge Home Score 4 - 6: 20.3% MACE over next 6 weeks - Admit for Clinical Observation Score 7 - 10: 72.7% MACE over next 6 weeks - Early Invasive Strategies Allergies: Allergies: Allergies Coded Allergies Type Severity Reaction Last Updated Verified Corticosteroids (Glucocorticoids) Allergy Severe facial swelling 05/26/19 Yes Penicillins Allergy Intermediate hives 05/26/19 Yes I S O L A T I O N *CONTACT* Allergy Unknown 06/03/19 Yes Physical Exam: PE: Constitutional: Well developed, well nourished, no acute distress, non-toxic appearance. [] HENT: Normocephalic, atraumatic, bilateral external ears normal, oropharynx dry Eyes: PERRLA, EOMI, conjunctiva normal, no discharge. [] Neck: Normal range of motion, no tenderness, supple, no stridor. [] Cardiovascular:Heart rate regular rhythm, no murmur [] Lungs & Thorax: Bilateral breath sounds clear to auscultation [] Abdomen: Bowel sounds normal, soft, no tenderness, no masses, no pulsatile janice s. [] Skin: Warm, dry, no erythema, no rash. [] Back: No tenderness, no CVA tenderness. [] Extremities: No tenderness, no cyanosis, no clubbing, ROM intact, no edema. [] Neurologic: Alert and oriented X 3, normal motor function, normal sensory function, no focal deficits noted. [] Psychologic: Affect normal, judgement normal, mood normal. [] EKG: EKG: [] Radiology/Procedures: Radiology/Procedures: [] Course & Med Decision Making: Course & Med Decision Making Pertinent Labs and Imaging studies reviewed. (See chart for details) DDX includes hypokalemia, hypomagnesemia, dehydration. Patient found to be hypokalemic and hypomagnesemic. She will be admitted for replacement. I spoke with Dr. Aguilar who agrees to the admission. Emilia Disclaimer: Emilia Disclaimer: This electronic medical record was generated, in whole or in part, using a voice recognition dictation system. Departure Departure Disposition: ADMITTED INPATIENT Condition: STABLE Referrals: CAROLYN BROWN M.D. (PCP) Justicifation of Admission Dx: Justifications for Admission: Justification of Admission Dx: Yes CHF: Sev. Electrolyte Abnormal YUSEFALEJANDRA VALDIVIA Mar 20, 2020 20:44
[2020-03-20] MEDS ORDERED: IV NORMAL SALINE 1000ML BAG 1,000 ML IV ONE (21:00)
[2020-03-20 21:14] LABS: ALBUMIN 3.1 g/dL (3.4-5.0); ALBUMIN/GLOBULIN RATIO 0.7 (1.0-1.7); CALCIUM 9.1 mg/dL (8.5-10.1); CREATININE 0.9 mg/dL (0.6-1.0); GFR 70.8; MAGNESIUM 1.7 mg/dL (1.8-2.4); TOTAL BILIRUBIN 1.2 mg/dL (0.2-1.0); TOTAL PROTEIN 7.6 g/dL (6.4-8.2)
[2020-03-20 21:16] LABS: POTASSIUM 2.6 mmol/L (3.5-5.1)
[2020-03-20] MEDS ORDERED: POTASSIUM CL 40MEQ D5-0.45NACL 1,000 ML IV ONE (21:30)
[2020-03-20] MEDS ORDERED: ACETAMINOPHEN 325 MG TABLET. PO PRN (21:45)
[2020-03-20] MEDS ORDERED: ZOLPIDEM 5 MG TABLET. PO PRN (21:45)
[2020-03-20] MEDS ORDERED: MAGNESIUM SULFATE 2GM 50 ML IV ONE (21:45)
[2020-03-20] MEDS ORDERED: PROCHLORPERAZINE 10 MG/2 ML VIAL. IV ONE (22:00)
[2020-03-20] MEDS: ONDANSETRON PF 4 MG/2 ML VIAL. IV PRN (22:04)
[2020-03-20] MEDS ORDERED: IOHEXOL 300 MG/ML 100ML VIAL. IV ONE ×2 (22:30→22:45)
[2020-03-20] MEDS ORDERED: CONTRAST GIVEN. MC PRN ×2 (22:30→22:45)
--- NOTE | 2020-03-20 23:13 | RAD ---
Exam: CT of abdomen with contrast INDICATION: Left upper quadrant pain, nausea and vomiting TECHNIQUE: Sequential axial images through the abdomen obtained following the administration of 75 mL of Omni 300 IV contrast. Sagittal and coronal reformatted images were reconstructed from the axial data and reviewed. Comparisons: None FINDINGS: Heart size is normal. No pericardial effusion. Visualized lung bases are clear. No pleural effusion. There is diffuse hepatic steatosis. Spleen, pancreas, and adrenals are unremarkable. Gallbladder surgically absent. Kidneys demonstrate symmetric enhancement. No perinephric inflammation or hydronephrosis. No renal or ureteral calculi are identified within the [id number]. Visualized portions of the large and small bowel are unremarkable. Abdominal aorta has a normal course and caliber. Abdominal vasculature is patent. No enlarged abdominal lymph nodes are identified. No suspicious osseous lesions or acute fractures. IMPRESSION: 1. No acute process identified within the abdomen or pelvis. 2. Diffuse hepatic steatosis. Exposure: One or more of the following in the visualized dose reduction techniques were utilized for this examination: 1. Automated exposure control 2. Adjustment of the MA and/or KV according to patient size 3. Use of iterative of reconstructive technique Electronically signed by: Enrique Meza MD (03/20/2020 11:10 PM) [id number]
[2020-03-20] MEDS ORDERED: ESOM40CA PO (23:31)
[2020-03-20 23:41] VITALS: BP 138/91
[2020-03-20] MEDS ORDERED: ONDANSETRON ODT 4 MG TAB.RAPDIS. PO PRN (23:45)
[2020-03-20] MEDS ORDERED: PROCHLORPERAZINE 10 MG/2 ML VIAL. IV PRN (23:45)
[2020-03-20] MEDS ORDERED: AMITRIPTYLINE HCL 10 MG TABLET. PO SCH (23:55)
[2020-03-20] MEDS ORDERED: CITALOPRAM 20 MG TABLET. PO SCH (23:55)
[2020-03-21] MEDS: KETOROLAC 30 MG/ML VIAL. IVP PRN ×2 (00:05→06:02)
[2020-03-21] MEDS: ONDANSETRON PF 4 MG/2 ML VIAL. IV PRN (05:48)
[2020-03-21 06:41] LABS: CALCIUM 8.1 mg/dL (8.5-10.1); CREATININE 0.8 mg/dL (0.6-1.0); GFR 81.2; MAGNESIUM 2.4 mg/dL (1.8-2.4)
[2020-03-21 06:45] LABS: POTASSIUM 2.7 mmol/L (3.5-5.1)
[2020-03-21 07:00] VITALS: BP 96/61
[2020-03-21] MEDS ORDERED: POTASSIUM CHLORIDE 20 MEQ TABLET.ER. PO ONE (07:00)
[2020-03-21] MEDS: POTASSIUM CHLORIDE 10MEQ 100 ML IV SCH ×3 (07:00→09:00)
[2020-03-21] MEDS ORDERED: PANTOPRAZOLE 40 MG TABLET.DR. PO SCH (07:30)
--- NOTE | 2020-03-21 10:16 | NUR ---
SW following. Discussed with RN, pt from home with family. Pt getting IV potassium today, wants to go home. RN advised no SW needs at this time. SW will continue to follow, should any discharge needs arise.
[2020-03-21 11:00] VITALS: BP 103/67
--- NOTE | 2020-03-21 12:37 | NUR ---
Discharge Note: GENEVIEVE ALANIZ Discharge instructions and discharge home medications reviewed with Patient and a copy given. All questions have been answered and understanding verbalized. The following instructions and handouts were given: diet, activity, medication list and follow up instructions provided to patient. Discontinued lines and drains: Peripheral IVs discontinued and catheters intact. Patient discharged to Home or Self Care with Self via Ambulated.
--- NOTE | 2020-03-21 12:39 | SSS ---
ADMIT DATE: 03/21/2020 SHORT STAY SUMMARY CHIEF COMPLAINT: Nausea, vomiting, diarrhea. 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 She has been having problems with nausea, vomiting, diarrhea, and it has been occurring for about a month. She was seen here a week ago with similar symptoms. States her symptoms got worse over the past few days. While in the ER, she is noted to have potassium of 2.6. We admitted the patient overnight for observation. This morning, she is doing well. I am going to give her a prescription for potassium. She wants to go home. PAST MEDICAL HISTORY: Anxiety, depression, hyperlipidemia, cholecystectomy, tobacco abuse. ALLERGIES: GLUCOCORTICOIDS, PENICILLIN, AND HYDROCODONE. FAMILY HISTORY: Diabetes. SOCIAL HISTORY: She smokes. No drink or drugs. MEDICATIONS: Were reviewed, please refer to the MRAD. REVIEW OF SYSTEMS: GENERAL: No history of weight change, weakness or fevers. SKIN: No bruising, hair changes or rashes. EYES: No blurred, double or loss of vision. NOSE AND THROAT: No history of nosebleeds, hoarseness or sore throat. HEART: No history of palpitations, chest pain or shortness of breath on exertion. LUNGS: Denies cough, hemoptysis, wheezing or shortness of breath. GASTROINTESTINAL: Denies changes in appetite, nausea, vomiting, diarrhea or constipation. GENITOURINARY: No history of frequency, urgency, hesitancy or nocturia. NEUROLOGIC: Denies history of numbness, tingling, tremor or weakness. PSYCHIATRIC: No history of panic, anxiety or depression. ENDOCRINE: No history of heat or cold intolerance, polyuria or polydipsia. EXTREMITIES: Denies muscle weakness, joint pain, pain on walking or stiffness. PHYSICAL EXAMINATION: VITALS: Within normal limits and are stable. GENERAL: No apparent distress. Alert and oriented. HEENT: Normocephalic, atraumatic, external auditory canals are patent. EYES: Extraocular muscles are intact, pupils are equally round and reactive to light and accommodation. MUSCULOSKELETAL: Well developed, well nourished, good range of motion. ENDOCRINE: No thyromegaly was palpated. LYMPHATICS: No cervical chain or axillary nodes were noted. HEMATOPOIETIC: No bruising. NECK: Supple, no JVD, no thyromegaly was noted. LUNGS: Clear to auscultation in all lung phelps without rhonchi or wheezing. HEART: RRR, S1, S2 present. Peripheral pulses intact, no obvious murmurs were noted. ABDOMEN: Soft, nontender. Positive bowel sounds no organomegaly, normal bowel sounds. EXTREMITIES: Without any cyanosis, clubbing, or edema. Pedal pulses intact, Homans sign is negative. NEUROLOGIC: Normal speech, normal tone. A & O x3, moves all extremities, no obvious focal deficits. PSYCHIATRIC: Normal affect, normal mood. Stable. SKIN: No ulcerations or rashes, good skin turgor, no jaundice. VASCULAR: Good capillary refill, neurovascular bundle appears to be intact. ASSESSMENT AND PLAN: Resolving hypokalemia. We gave her several bags of IV potassium overnight. She is doing better this morning and wants to go home. I gave her a prescription for 20 mEq of potassium chloride p.o. b.i.d. DISPOSITION: Home. ACTIVITY: As tolerated. DIET: Low sodium. MEDICATIONS: Please see the MRAD. TOTAL TIME: 32 minutes. CASSANDRAL Doug [place] DO DR: YOSELIN/rachel JOB#: [id number] / [id number]
--- NOTE | 2020-03-22 03:27 | EKG ---
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
== END 2020-03-21 12:05 | disposition home or self-care (01) | DRG 641 ==
LOC: ER 20:22 → 5 NORTH 22:25 → OBSVTOIN 22:26
PROVIDERS: ADMIT Internal Medicine; ATTEND Internal Medicine
DX: E87.6 Hypokalemia (principal); E78.00 Pure hypercholesterolemia, unspecified; F17.200 Nicotine dependence, unspecified, uncomplicated; E78.5 Hyperlipidemia, unspecified; F32.9 Major depressive disorder, single episode, unspecified; F41.9 Anxiety disorder, unspecified; Z90.49 Acquired absence of other specified parts of digestive tract; Z83.3 Family history of diabetes mellitus; Z88.0 Allergy status to penicillin; Z88.8 Allergy status to other drugs, medicaments and biological substances; Z88.5 Allergy status to narcotic agent
CPT/HCPCS: 36415; 74160; 80048; 80053; 82533; 83690; 83735; 84443; 84702; 93005; 96361; 96365; 96368; 99285; G0379; J0780; J1885; J2405; J3475; J3480; J7030; Q9967; G0378

== ENCOUNTER 2020-03-24 18:52 | Emergency (ER) | payer OTHER ==
[~2020-03-24] VITALS: Ht 162.6 cm; Wt 65.0 kg
[~2020-03-24 18:52] MED LIST changes: +ESOM40CA PO
[2020-03-24] MEDS ORDERED: IV NORMAL SALINE 1000ML BAG 1,000 ML IV SCH (19:54)
--- NOTE | 2020-03-24 19:56 | PHYS DOC ---
Past Medical History Past Medical History: Anxiety, Depression, High Cholesterol Past Surgical History: Cholecystectomy Additional Past Surgical Histo: ankle Smoking Status: Current Every Day Smoker Alcohol Use: Occasionally Drug Use: None General Adult EDM: Chief Complaint: NAUSEA/VOMITING/DIARRHA HPI: HPI: Patient is a 35 year old female who presents with intractable nausea and vomiting, diarrhea. She denies any abdominal pain, chest pain, shortness of breath, fever, vision changes, dizziness, headache, syncope, focal weakness, numbness or tingling. Patient was here on the March 13 with nausea and vomiting and had low potassium and low magnesium that had to be replaced. She states that she got better and then again it started on on 20 March and came back to the emergency room of which she was diagnosed with hypokalemia. Patient states that she was okay until today when the nausea, vomiting and diarrhea began again. She denies any alcohol or drug use. Patient did have a COVID test March 13 and it was negative. Review of Systems: Review of Systems: Constitutional: Denies fever or chills. [] Eyes: Denies change in visual acuity. [] HENT: Denies nasal congestion or sore throat. [] Respiratory: Denies cough or shortness of breath. [] Cardiovascular: Denies chest pain or edema. [] GI: Denies abdominal pain. + nausea, +vomiting, denies bloody stools. + diarrhea. [] : Denies dysuria. [] Musculoskeletal: Denies back pain or joint pain. [] Integument: Denies rash. [] Neurologic: Denies headache, focal weakness or sensory changes. [] Endocrine: Denies polyuria or polydipsia. [] Lymphatic: Denies swollen glands. [] Psychiatric: Denies depression or anxiety. [] Heart Score: Risk Factors: Risk Factors: DM, Current or recent (<one month) smoker, HTN, HLP, family history of CAD, obesity. Risk Scores: Score 0 - 3: 2.5% MACE over next 6 weeks - Discharge Home Score 4 - 6: 20.3% MACE over next 6 weeks - Admit for Clinical Observation Score 7 - 10: 72.7% MACE over next 6 weeks - Early Invasive Strategies Allergies: Allergies: Allergies Coded Allergies Type Severity Reaction Last Updated Verified Corticosteroids (Glucocorticoids) Allergy Severe facial swelling 05/26/19 Yes Penicillins Allergy Intermediate hives 05/26/19 Yes I S O L A T I O N *CONTACT* Allergy Unknown 06/03/19 Yes Uncoded Allergies Type Severity Reaction Last Updated Verified hydrococone Adverse Reaction Mild Nausea 03/20/20 Physical Exam: PE: Constitutional: Well developed, well nourished, no acute distress, non-toxic appearance. [] HENT: Normocephalic, atraumatic, bilateral external ears normal, oropharynx moist, no oral exudates, nose normal. [] Eyes: PERRLA, EOMI, conjunctiva normal, no discharge. [] Neck: Normal range of motion, no tenderness, supple, no stridor. [] Cardiovascular:Heart rate regular rhythm, no murmur [] Lungs & Thorax: Bilateral breath sounds clear to auscultation [] Abdomen: Bowel sounds normal, soft, no tenderness, no masses, no pulsatile masses. [] Skin: Warm, dry, no erythema, no rash. [] Back: No tenderness, no CVA tenderness. [] Extremities: No tenderness, no cyanosis, no clubbing, ROM intact, no edema. [] Neurologic: Alert and oriented X 3, normal motor function, normal sensory function, no focal deficits noted. [] Psychologic: Affect normal, judgement normal, mood normal. Normal physical exam [] EKG: EK and read by Dr. Reyes as sinus rhythm and no STEMI. [] Radiology/Procedures: Radiology/Procedures: [] Course & Med Decision Making: Course & Med Decision Making Pertinent Labs and Imaging studies reviewed. (See chart for details) Alert and oriented x4. Ambulatory with steady gait. See HPI. Abdomen is soft and nontender. No extremity swelling. Speaks in full clear sentences. Skin pink warm and dry. Patient's magnesium is 1.0. I have ordered 2g of magnesium IV. Patient is also getting 2 L of normal saline for hydration. Patient received IV Compazine but began to vomit again. Patient was then given Zofran and she states she is feeling much better. Patient states that she is ready to go home. Patient has drank some water and has kept it down. She has been p.o. challenged successfu lly. No EKG changes. [] Joeon Disclaimer: Emilia Disclaimer: This electronic medical record was generated, in whole or in part, using a voice recognition dictation system. Departure Departure Impression: Primary Impression: Hypomagnesemia Additional Impression: Nausea and vomiting Qualified Codes: R11.2 - Nausea with vomiting, unspecified Disposition: 01 HOME, SELF-CARE Condition: STABLE Referrals: CAROLYN BROWN M.D. (PCP) Patient Instructions: Hypomagnesemia, Nausea and Vomiting, [id number] Additional Instructions: Follow-up with primary care provider soon as possible. Drink plenty of fluids. Slowly advance her diet. Scripts Ondansetron (ONDANSETRON ODT) 4 Mg Tab.rapdis 1 TAB PO PRN Q6-8HRS, #16 TAB Prov: CHAVA ADAMS APRN 03/24/20 Prochlorperazine Maleate (Compazine) 10 Mg Tablet 1 TAB PO Q6HRS for 7 Days, #28 TAB 0 Refills Prov: CHAVA ADAMS APRN 03/24/20 Justicifation of Admission Dx: Justifications for Admission: Justification of Admission Dx: N/A CHF: Sev. Electrolyte Abnormal CHAVA ADAMS APRN Mar 24, 2020 19:56
[2020-03-24] MEDS ORDERED: PROCHLORPERAZINE 10 MG/2 ML VIAL. IV ONE (20:00)
[2020-03-24 20:25] LABS: BASO # 0.1 x10^3/uL (0.0-0.2); BASO % 1 % (0-3); EOS % 0 % (0-3); HEMATOCRIT 39.4 % (36.0-47.0); HEMOGLOBIN 13.4 g/dL (12.0-15.5); LYMPH # 1.6 x10^3/uL (1.0-4.8); LYMPH % 10 % (24-48); MEAN CORPUSCULAR HEMOGLOBIN 33 pg (25-35); MEAN CORPUSCULAR HGB CONC 34 g/dL (31-37); MEAN CORPUSCULAR VOLUME 98 fL (79-100); MONO # 0.9 x10^3/uL (0.0-1.1); MONO % 6 % (0-9); NEUT # 13.7 x10^3/uL (1.8-7.7); NEUT % 84 % (31-73); PLATELET COUNT 389 x10^3/uL (140-400); RED BLOOD COUNT 4.01 x10^6/uL (3.50-5.40); WHITE BLOOD COUNT 16.3 x10^3/uL (4.0-11.0)
[2020-03-24 20:33] LABS: CALCIUM 9.1 mg/dL (8.5-10.1); CREATININE 1.3 mg/dL (0.6-1.0); GFR 46.3; POTASSIUM 3.5 mmol/L (3.5-5.1)
[2020-03-24 20:35] LABS: PROTHROMBIN TIME PATIENT 12.6 SEC (11.7-14.0)
[2020-03-24 20:39] LABS: ALBUMIN 3.2 g/dL (3.4-5.0); ALBUMIN/GLOBULIN RATIO 0.7 (1.0-1.7); TOTAL BILIRUBIN 0.4 mg/dL (0.2-1.0); TOTAL PROTEIN 7.5 g/dL (6.4-8.2)
[2020-03-24 20:44] LABS: % LYMPHS 14 % (24-48); % MONOS 4 % (0-10); % SEGS 82 % (35-66); PLT ESTIMATE ADEQUATE (ADEQUATE)
[2020-03-24] MEDS ORDERED: ONDANSETRON PF 4 MG/2 ML VIAL. ONE (21:39)
[2020-03-24] MEDS ORDERED: IV NORMAL SALINE 1000ML BAG 1,000 ML IV ONE (21:45)
[2020-03-24] MEDS ORDERED: MAGNESIUM SULFATE 2GM 50 ML IV ONE (22:00)
[2020-03-24] MEDS ORDERED: ONDANSETRON PF 4 MG/2 ML VIAL. IVP ONE (22:00)
[2020-03-24] MEDS ORDERED: PROC10TA57 PO (22:33)
[2020-03-24] MEDS ORDERED: ONDA4TAB12 PO (22:33)
[2020-03-24 23:45] VITALS: BP 108/74
--- NOTE | 2020-03-28 13:41 | EKG ---
[facility] [address] [place] [address] Test Date: 2020-03-24 Test Time: 22:53:01 Pat Name: GENEVIEVE ALANIZ Department: Room: Gender: F Toe Puncher: : 1985 Requested By: CHAVA ADAMS Order Number: [id number] Reading MD: Measurements Intervals [place] Rate: 84 P: 29 [place]: 138 QRS: -26 QRSD: 68 T: 3 QT: 430 QTc: 512 Interpretive Statements SINUS RHYTHM LEFTWARD AXIS QRS(T) CONTOUR ABNORMALITY CONSISTENT WITH ANTEROSEPTAL INFARCT AGE UNDETERMINED ABNORMAL ECG RI6.01 No previous ECG available for comparison
== END 2020-03-24 23:56 | disposition home or self-care (01) ==
LOC: ER 18:52
DX: E83.42 Hypomagnesemia (principal); R11.2 Nausea with vomiting, unspecified; R19.7 Diarrhea, unspecified; E78.00 Pure hypercholesterolemia, unspecified; F17.200 Nicotine dependence, unspecified, uncomplicated; F32.9 Major depressive disorder, single episode, unspecified; F41.9 Anxiety disorder, unspecified; Z90.49 Acquired absence of other specified parts of digestive tract; Z88.0 Allergy status to penicillin; Z88.5 Allergy status to narcotic agent; Z91.041 Radiographic dye allergy status; Z88.8 Allergy status to other drugs, medicaments and biological substances
CPT/HCPCS: 36415; 80053; 83690; 83735; 84484; 85007; 85025; 85610; 93005; 96361; 96365; 96375; 99285; J0780; J2405; J3475; J7030

== ENCOUNTER 2020-03-26 19:57 | Emergency (ER) | payer OTHER ==
[~2020-03-26] VITALS: Ht 162.6 cm; Wt 67.3 kg
[~2020-03-26 19:57] MED LIST changes: +PROC10TA57 PO
[2020-03-26 21:28] LABS: BILIRUBIN,URINE NEGATIVE (NEG); CLARITY,URINE CLEAR; COLOR,URINE YELLOW; NITRITE,URINE POSITIVE (NEG); PH,URINE 6.5 (<5.0-8.0); PROTEIN,URINE NEGATIVE (NEG-TRACE)
[2020-03-26 21:29] LABS: BASO # 0.1 x10^3/uL (0.0-0.2); BASO % 1 % (0-3); EOS # 0.1 x10^3/uL (0.0-0.7); EOS % 1 % (0-3); HEMATOCRIT 41.8 % (36.0-47.0); HEMOGLOBIN 14.3 g/dL (12.0-15.5); LYMPH # 1.9 x10^3/uL (1.0-4.8); LYMPH % 18 % (24-48); MEAN CORPUSCULAR HEMOGLOBIN 34 pg (25-35); MEAN CORPUSCULAR HGB CONC 34 g/dL (31-37); MEAN CORPUSCULAR VOLUME 98 fL (79-100); MONO # 0.7 x10^3/uL (0.0-1.1); MONO % 7 % (0-9); NEUT # 8.2 x10^3/uL (1.8-7.7); NEUT % 75 % (31-73); PLATELET COUNT 429 x10^3/uL (140-400); RED BLOOD COUNT 4.27 x10^6/uL (3.50-5.40); RED CELL DISTRIBUTION WIDTH 14.8 % (11.5-14.5); WHITE BLOOD COUNT 10.9 x10^3/uL (4.0-11.0)
[2020-03-26] MEDS ORDERED: FAMOTIDINE 20 MG/2 ML VIAL IVP ONE (21:30)
[2020-03-26] MEDS ORDERED: IV NORMAL SALINE 1000ML BAG 1,000 ML IV ONE (21:30)
[2020-03-26] MEDS ORDERED: PROCHLORPERAZINE 10 MG/2 ML VIAL. IV ONE (21:30)
[2020-03-26 21:33] LABS: BACTERIA,URINE MANY /HPF (0-FEW); RBC,URINE OCC /HPF (0-2); SQUAMOUS EPITHELIAL CELL,UR MOD /LPF
[2020-03-26 21:35] LABS: BARBITURATES NEG (NEG); BENZODIAZEPINES NEG (NEG); CANNABINOIDS POS (NEG); COCAINE NEG (NEG); METHADONE NEG (NEG); OPIATES NEG (NEG); PHENCYCLIDINE NEG (NEG)
[2020-03-26 21:36] LABS: AMPHETAMINE/METHAMPHETAMINE NEG (NEG); CALCIUM 8.7 mg/dL (8.5-10.1); GFR 62.7; POTASSIUM 3.4 mmol/L (3.5-5.1)
[2020-03-26 21:42] LABS: ALBUMIN 3.3 g/dL (3.4-5.0); ALBUMIN/GLOBULIN RATIO 0.8 (1.0-1.7); MAGNESIUM 1.4 mg/dL (1.8-2.4); TOTAL BILIRUBIN 0.5 mg/dL (0.2-1.0); TOTAL PROTEIN 7.4 g/dL (6.4-8.2)
[2020-03-26] MEDS ORDERED: MAGNESIUM SULFATE 1GM 100 ML IV ONE (22:30)
[2020-03-26] MEDS ORDERED: PROC10TA57 PO (22:51)
[2020-03-26] MEDS ORDERED: NITR100C63 PO (22:51)
[2020-03-26] MEDS ORDERED: PROM25SU33 RC (22:51)
--- NOTE | 2020-03-26 22:51 | PHYS DOC ---
Past Medical History Past Medical History: Anxiety, Depression, GERD, High Cholesterol, Other Additional Past Medical Histor: HYPOMAGNESIUM,HYPOKALEMIA (DHRUV LEGGETT APRN) Past Surgical History: Cholecystectomy, Other Additional Past Surgical Histo: ankle (DHRUV LEGGETT APRN) Smoking Status: Current Every Day Smoker Additional Information: 5 CIGS/DAY Alcohol Use: Occasionally Drug Use: None (DHRUV LEGGETT APRN) General Adult EDM: Chief Complaint: NAUSEA/VOMITING/DIARRHA HPI: HPI: Patient is a 35 year old female with a history of anxiety, depression, high cholesterol, who presents to the ED today complaining of intermittent episodes of nausea and vomiting for 1-1/2 months. Patient reports she has been worked up for this symptoms with no known cause. She states she has an upcoming appo intment with GI for an upper endoscopy. (DHRUV LEGGETT APRN) Review of Systems: Review of Systems: Constitutional: Denies fever or chills. [] Eyes: Denies change in visual acuity. [] HENT: Denies nasal congestion or sore throat. [] Respiratory: Denies cough or shortness of breath. [] Cardiovascular: Denies chest pain or edema. [] GI: Reports nausea and vomiting for 1-1/2 months. Denies abdominal pain, bloody stools or diarrhea. [] : Denies dysuria. [] Musculoskeletal: Denies back pain or joint pain. [] Integument: Denies rash. [] Neurologic: Denies headache, focal weakness or sensory changes. [] Endocrine: Denies polyuria or polydipsia. [] Lymphatic: Denies swollen glands. [] Psychiatric: Denies depression or anxiety. [] (DHRUV LEGGETT APRN) Heart Score: Risk Factors: Risk Factors: DM, Current or recent (<one month) smoker, HTN, HLP, family history of CAD, obesity. Risk Scores: Score 0 - 3: 2.5% MACE over next 6 weeks - Discharge Home Score 4 - 6: 20.3% MACE over next 6 weeks - Admit for Clinical Observation Score 7 - 10: 72.7% MACE over next 6 weeks - Early Invasive Strategies (DHRUV LEGGETT APRN) Current Medications: Current Medications Medications (Trade) Dose Ordered Sig/Kwaku Start Time Stop Time Status Last Admin Dose Admin Famotidine (Pepcid Vial) 20 mg 1X ONCE 03/26/20 21:30 03/26/20 21:31 DC 03/26/20 21:25 20 MG Magnesium Sulfate/ Dextrose 100 ml @ 100 mls/hr 1X ONCE 03/26/20 22:30 03/26/20 23:29 Ondansetron HCl (Zofran) 4 mg 1X ONCE 03/26/20 23:00 03/26/20 23:01 03/26/20 22:24 4 MG Prochlorperazine Edisylate (Compazine) 10 mg 1X ONCE 03/26/20 21:30 03/26/20 21:31 DC 03/26/20 21:24 10 MG Sodium Chloride 1,000 ml @ 1,000 mls/hr 1X ONCE 03/26/20 21:30 03/26/20 22:29 DC 03/26/20 21:25 1,000 MLS/HR (MUTUNGA,DHRUV MICA PLATE LAYER) Allergies: Allergies: Allergies Coded Allergies Type Severity Reaction Last Updated Verified Corticosteroids (Glucocorticoids) Allergy Severe facial swelling 05/26/19 Yes Penicillins Allergy Intermediate hives 05/26/19 Yes I S O L A T I O N *CONTACT* Allergy Unknown 06/03/19 Yes hydrocodone Adverse Reaction Mild Nausea 03/24/20 Yes (MUTUNGA,DHRUV MICA PLATE LAYER) Physical Exam: PE: Constitutional: Well developed, well nourished, no acute distress, non-toxic appearance. [] HENT: Normocephalic, atraumatic, bilateral external ears normal, oropharynx moist, no oral exudates, nose normal. [] Eyes: PERRLA, EOMI, conjunctiva normal, no discharge. [] Neck: Normal range of motion, no tenderness, supple, no stridor. [] Cardiovascular:Heart rate regular rhythm, no murmur [] Lungs & Thorax: Bilateral breath sounds clear to auscultation [] Abdomen: Sitting up in bend as position of comfort. Bowel sounds normal, soft, no tenderness, no masses, no pulsatile masses. [] Skin: Warm, dry, no erythema, no rash. [] Back: No tenderness, no CVA tenderness. [] Extremities: No tenderness, no cyanosis, no clubbing, ROM intact, no edema. [] Neurologic: Alert and oriented X 3, normal motor function, normal sensory function, no focal deficits noted. [] Psychologic: Flat affect (MUTUNGA,DHRUV MICA PLATE LAYER) Current Patient Data: Labs: Laboratory Tests Test 03/26/20 21:15 03/26/20 21:22 White Blood Count 10.9 x10^3/uL (4.0-11.0) Red Blood Count 4.27 x10^6/uL (3.50-5.40) Hemoglobin 14.3 g/dL (12.0-15.5) Hematocrit 41.8 % (36.0-47.0) Mean Corpuscular Volume 98 fL (79-100) Mean Corpuscular Hemoglobin 34 pg (25-35) Mean Corpuscular Hemoglobin Concent 34 g/dL (31-37) Red Cell Distribution Width 14.8 % (11.5-14.5) H Platelet Count 429 x10^3/uL (140-400) H Neutrophils (%) (Auto) 75 % (31-73) H Lymphocytes (%) (Auto) 18 % (24-48) L Monocytes (%) (Auto) 7 % (0-9) Eosinophils (%) (Auto) 1 % (0-3) Basophils (%) (Auto) 1 % (0-3) Neutrophils # (Auto) 8.2 x10^3/uL (1.8-7.7) H Lymphocytes # (Auto) 1.9 x10^3/uL (1.0-4.8) Monocytes # (Auto) 0.7 x10^3/uL (0.0-1.1) Eosinophils # (Auto) 0.1 x10^3/uL (0.0-0.7) Basophils # (Auto) 0.1 x10^3/uL (0.0-0.2) Urine Collection Type Unknown Urine Color Yellow Urine Clarity Clear Urine pH 6.5 (<5.0-8.0) Urine Specific Hoffman 1.010 (1.000-1.030) Urine Protein Negative mg/dL (NEG-TRACE) Urine Glucose (UA) Negative mg/dL (NEG) Urine Ketones (Stick) Negative mg/dL (NEG) Urine Blood Trace (NEG) Urine Nitrite Positive (NEG) Urine Bilirubin Negative (NEG) Urine Urobilinogen Dipstick 1.0 mg/dL (0.2 mg/dL) Urine Leukocyte Esterase Negative (NEG) Urine RBC Occ /HPF (0-2) Urine WBC 1-4 /HPF (0-4) Urine Squamous Epithelial Cells Mod /LPF Urine Bacteria Many /HPF (0-FEW) Sodium Level 136 mmol/L (136-145) Potassium Level 3.4 mmol/L (3.5-5.1) L Chloride Level 99 mmol/L (98-107) Carbon Dioxide Level 25 mmol/L (21-32) Anion Gap 12 (6-14) Blood Urea Nitrogen 1 mg/dL (7-20) L Creatinine 1.0 mg/dL (0.6-1.0) Estimated GFR (Cockcroft-Gault) 62.7 BUN/Creatinine Ratio 1 (6-20) L Glucose Level 128 mg/dL (70-99) H Calcium Level 8.7 mg/dL (8.5-10.1) Magnesium Level 1.4 mg/dL (1.8-2.4) L Total Bilirubin 0.5 mg/dL (0.2-1.0) Aspartate Amino Transferase (AST) 70 U/L (15-37) H Alanine Aminotransferase (ALT) 32 U/L (14-59) Alkaline Phosphatase 100 U/L (46-116) Total Protein 7.4 g/dL (6.4-8.2) Albumin 3.3 g/dL (3.4-5.0) L Albumin/Globulin Ratio 0.8 (1.0-1.7) L Lipase 74 U/L (73-393) Urine Opiates Screen Neg (NEG) Urine Methadone Screen Neg (NEG) Urine Barbiturates Neg (NEG) Urine Phencyclidine Screen Neg (NEG) Urine Amphetamine/Methamphetamine Neg (NEG) Urine Benzodiazepines Screen Neg (NEG) Urine Cocaine Screen Neg (NEG) Urine Cannabinoids Screen Pos (NEG) Ethyl Alcohol Level < 10 mg/dL (0-10) Urine Ethyl Alcohol Neg (NEG) POC Urine HCG, Qualitative Hcg negative (Negative) Laboratory Tests 03/26/20 21:15 Laboratory Tests 03/26/20 21:15 Vital Signs: Vital Signs Date Time Temp Pulse Resp B/P (MAP) Pulse Ox O2 Delivery O2 Flow Rate FiO2 03/26/20 20:25 98.1 83 20 151/93 (112) 96 Room Air 98.1 (MUTUNGA,DHRUV MICA PLATE LAYER) EKG: EKG: [] (DHRUV LEGGETT APRN) Radiology/Procedures: Radiology/Procedures: [] (DHRUV LEGGETT APRN) Course & Med Decision Making: Course & Med Decision Making Pertinent Labs and Imaging studies reviewed. (See chart for details) This is a 35-year-old female patient presenting to the ED today with nausea and vomiting for 1-1/2 months. Patient has been worked up multiple times in this ED for her symptoms. She was seen in the ED on March 24 and March 13 for the same symptoms. Her work-up in the ED today labs are negative for anything really acute. Noted for UTI as well as marijuana use. Discharged on Macrobid. She has an upcoming appointment with GI for an upper endoscopy soon. (DHRUV LEGGETT APRN) Dragon Disclaimer: Dragon Disclaimer: This electronic medical record was generated, in whole or in part, using a voice recognition dictation system. (DHRUV LEGGETT APRN) Departure Departure Impression: Primary Impression: Nausea and vomiting Qualified Codes: R11.2 - Nausea with vomiting, unspecified Additional Impressions: UTI (urinary tract infection) Qualified Codes: N39.0 - Urinary tract infection, site not specified Marijuana abuse Disposition: HOME, SELF-CARE Condition: STABLE Referrals: CAROLYN BROWN M.D. (PCP) follow up next week HONORIO NICOLE MD follow up next week Patient Instructions: Nausea and Vomiting, [id number], Urinary Tract Infection Additional Instructions: You were seen for nausea and vomiting. Your urine was noted for nitrites. We will put you on antibiotics, take them as prescribed until completed. Push fluids, follow-up with your doctor next week. Scripts Nitrofurantoin Macrocrystal (MACRODANTIN) 100 Mg Capsule 1 CAP PO BID for 7 Days, #14 CAP 0 Refills Prov: DHRUV LEGGETT APRN 03/26/20 Prochlorperazine Maleate (Compazine) 10 Mg Tablet 1 TAB PO Q6HRS, #14 TAB 0 Refills Prov: DHRUV LEGGETT APRN 03/26/20 Promethazine Hcl (PROMETHAZINE HCL) 25 Mg Supp.rect 25 MG RC Q6H PRN for NAUSEA/VOMITING, #10 SUPP.RECT Prov: DHRUV LEGGETT APRN 03/26/20 Justicifation of Admission Dx: Justifications for Admission: Justification of Admission Dx: N/A CHF: Sev. Electrolyte Abnormal (DHRUV LEGGETT APRN) Attending Signature Attending Signature I have reviewed the PA/SOFTWARE IMPLEMENTATION PROJECT MANAGER's note and plan of care. I was available for consultation as needed during the patient's visit in the emergency department. I agree with the clinical impression, plan, and disposition. (SHAKA HENDRICKS DO) DHRUV LEGGETT APRN Mar 26, 2020 22:51 SHAKA HENDRICKS DO Mar 26, 2020 23:32
[2020-03-26 22:57] VITALS: BP 149/82
[2020-03-26] MEDS ORDERED: ONDANSETRON PF 4 MG/2 ML VIAL. IVP ONE (23:00)
== END 2020-03-26 22:57 | disposition home or self-care (01) ==
LOC: ER 19:57
DX: N39.0 Urinary tract infection, site not specified (principal); R11.2 Nausea with vomiting, unspecified; F12.10 Cannabis abuse, uncomplicated; F41.9 Anxiety disorder, unspecified; F32.9 Major depressive disorder, single episode, unspecified; K21.9 Gastro-esophageal reflux disease without esophagitis; E78.00 Pure hypercholesterolemia, unspecified; F17.210 Nicotine dependence, cigarettes, uncomplicated; Z98.890 Other specified postprocedural states; Z90.49 Acquired absence of other specified parts of digestive tract; Z88.0 Allergy status to penicillin; Z88.5 Allergy status to narcotic agent; Z88.8 Allergy status to other drugs, medicaments and biological substances
CPT/HCPCS: 36415; 80053; 80307; 81001; 81025; 83690; 83735; 85025; 87086; 96361; 96374; 96375; 99284; G0480; J0780; J2405; J3490; J7030

== ENCOUNTER 2020-03-28 13:52 | Emergency (ER) | payer OTHER ==
[~2020-03-28] VITALS: Ht 162.6 cm; Wt 65.9 kg
[~2020-03-28 13:52] MED LIST changes: +NITR100C63 PO; +PROM25SU33 RC
[2020-03-28 14:03] VITALS: BP 141/119
--- NOTE | 2020-03-28 14:27 | PHYS DOC ---
Past Medical History Past Medical History: Anxiety, Depression, GERD, High Cholesterol, Other Additional Past Medical Histor: HYPOMAGNESIUM,HYPOKALEMIA Past Surgical History: Cholecystectomy, Other Additional Past Surgical Histo: ankle Smoking Status: Current Every Day Smoker Alcohol Use: Occasionally Drug Use: None General Adult EDM: Chief Complaint: URINARY RETENTION HPI: HPI: The history was obtained from the patient. Patient is a 35-year-old female with PMH PCOS who presents with a chief complaint of vomiting. Patient states she has had constant vomiting for the past month. States anytime she tries to eat food she tends to vomit. She states that she has been seen by emergency department several days ago. She states she was diagnosed with a UTI at that time but is been able to keep down her antibiotics. She does note a decrease in urinary output. She denies any abdominal pain. She states she did have CT abdomen pelvis was performed that did not reveal any acute abnormality. 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 She states she has scheduled to have an upper endoscopy in the near future. She has been trying oral Zofran and Compazine suppositories at home without relief. She denies any chronic alcohol usage. She denies any chronic marijuana usage. She states her family physician is also evaluating her for this chronic issue. She states her greatest concern is her inability to keep any fluids down as well as her UTI. She denies any fevers. Denies any chest pain or shortness of breath. Denies any syncope. Denies any unexplained weight loss. No other complaints. Review of Systems: Review of Systems: Constitutional: Denies fever or chills. [] Eyes: Denies change in visual acuity. [] HENT: Denies nasal congestion or sore throat. [] Respiratory: Denies cough or shortness of breath. [] Cardiovascular: Denies chest pain or edema. [] GI: Positive for nausea and vomiting : Denies dysuria. [] Musculoskeletal: Denies back pain or joint pain. [] Integument: Denies rash. [] Neurologic: Denies headache, focal weakness or sensory changes. [] Endocrine: Denies polyuria or polydipsia. [] Lymphatic: Denies swollen glands. [] Psychiatric: Denies depression or anxiety. [] Heart Score: Risk Factors: Risk Factors: DM, Current or recent (<one month) smoker, HTN, HLP, family history of CAD, obesity. Risk Scores: Score 0 - 3: 2.5% MACE over next 6 weeks - Discharge Home Score 4 - 6: 20.3% MACE over next 6 weeks - Admit for Clinical Observation Score 7 - 10: 72.7% MACE over next 6 weeks - Early Invasive Strategies Current Medications: Current Medications Medications (Trade) Dose Ordered Sig/Kwaku Start Time Stop Time Status Last Admin Dose Admin Famotidine (Pepcid Vial) 20 mg 1X ONCE 03/28/20 14:30 03/28/20 14:31 Olanzapine (ZyPREXA IM) 10 mg 1X ONCE 03/28/20 14:30 03/28/20 14:31 Sodium Chloride 1,000 ml @ 1,000 mls/hr 1X ONCE 03/28/20 14:30 03/28/20 15:29 Allergies: Allergies: Allergies Coded Allergies Type Severity Reaction Last Updated Verified Corticosteroids (Glucocorticoids) Allergy Severe facial swelling 05/26/19 Yes Penicillins Allergy Intermediate hives 05/26/19 Yes I S O L A T I O N *CONTACT* Allergy Unknown 06/03/19 Yes hydrocodone Adverse Reaction Mild Nausea 03/24/20 Yes Physical Exam: PE: Constitutional: Well developed, well nourished, no acute distress, non-toxic appearance. [] HENT: Normocephalic, atraumatic, bilateral external ears normal, oropharynx moist, no oral exudates, nose normal. [] Eyes: PERRLA, EOMI, conjunctiva normal, no discharge. [] Neck: Normal range of motion, no tenderness, supple, no stridor. [] Cardiovascular:Heart rate regular rhythm, no murmur [] Lungs & Thorax: Bilateral breath sounds clear to auscultation [] Abdomen: Bowel sounds normal, soft, no tenderness, no masses, no pulsatile masses. [] Skin: Warm, dry, no erythema, no rash. [] Back: No tenderness, no CVA tenderness. [] Extremities: No tenderness, no cyanosis, no clubbing, ROM intact, no edema. [] Neurologic: Alert and oriented X 3, normal motor function, normal sensory function, no focal deficits noted. [] Psychologic: Affect normal, judgement normal, mood normal. [] Current Patient Data: Labs: Laboratory Tests Test 03/28/20 14:07 White Blood Count 12.1 x10^3/uL Red Blood Count 4.09 x10^6/uL Hemoglobin 13.6 g/dL Hematocrit 39.9 % Mean Corpuscular Volume 98 fL Mean Corpuscular Hemoglobin 33 pg Mean Corpuscular Hemoglobin Concent 34 g/dL Red Cell Distribution Width 14.4 % Platelet Count 421 x10^3/uL Neutrophils (%) (Auto) 75 % Lymphocytes (%) (Auto) 18 % Monocytes (%) (Auto) 6 % Eosinophils (%) (Auto) 0 % Basophils (%) (Auto) 0 % Neutrophils # (Auto) 9.0 x10^3/uL Lymphocytes # (Auto) 2.1 x10^3/uL Monocytes # (Auto) 0.8 x10^3/uL Eosinophils # (Auto) 0.0 x10^3/uL Basophils # (Auto) 0.1 x10^3/uL Sodium Level 136 mmol/L Potassium Level 2.8 mmol/L Chloride Level 98 mmol/L Carbon Dioxide Level 27 mmol/L Anion Gap 11 Blood Urea Nitrogen 4 mg/dL Creatinine 0.7 mg/dL Estimated GFR (Cockcroft-Gault) 94.7 BUN/Creatinine Ratio 6 Glucose Level 99 mg/dL Calcium Level 9.4 mg/dL Magnesium Level 1.7 mg/dL Total Bilirubin 1.0 mg/dL Aspartate Amino Transf (AST/SGOT) 106 U/L Alanine Aminotransferase (ALT/SGPT) 34 U/L Alkaline Phosphatase 90 U/L Total Protein 7.6 g/dL Albumin 3.2 g/dL Albumin/Globulin Ratio 0.7 Lipase 83 U/L Thyroid Stimulating Hormone (TSH) 2.271 uIU/mL Serum Test, Qualitative Negative Current Medications Medications (Trade) Dose Ordered Sig/Kwaku Route PRN Reason Start Time Stop Time Status Last Admin Dose Admin Olanzapine (ZyPREXA IM) 10 mg 1X ONCE IM 03/28/20 14:30 03/28/20 14:31 DC 03/28/20 14:35 Sodium Chloride 1,000 ml @ 1,000 mls/hr 1X ONCE IV 03/28/20 14:30 03/28/20 15:59 DC 03/28/20 14:35 Famotidine (Pepcid Vial) 20 mg 1X ONCE IVP 03/28/20 14:30 03/28/20 14:31 DC 03/28/20 14:35 Magnesium Sulfate 50 ml @ 50 mls/hr 1X ONCE IV 03/28/20 15:45 03/28/20 15:59 DC Potassium Chloride/Sodium Chloride 1,000 ml @ 75 mls/hr [id number] ONCE IV 03/28/20 16:00 03/28/20 15:59 DC Magnesium Oxide (Magnesium Oxide) 400 mg DAILY PO 03/28/20 16:15 03/28/20 16:53 Potassium Chloride (Klor-Con) 60 meq 1X ONCE PO 03/28/20 16:00 03/28/20 16:12 DC 03/28/20 16:53 Nitrofurantoin Macrocrystals (Macrobid) 100 mg 1X ONCE PO 03/28/20 16:00 03/28/20 16:13 DC 03/28/20 16:53 Vital Signs: Vital Signs Date Time Temp Pulse Resp B/P (MAP) Pulse Ox O2 Delivery O2 Flow Rate FiO2 03/28/20 14:03 98.4 94 20 141/119 (126) 99 Room Air 98.4 EKG: EKG: [] Radiology/Procedures: Radiology/Procedures: [] Course & Med Decision Making: Course & Med Decision Making Pertinent Labs and Imaging studies reviewed. (See chart for details) Patient is a 35-year-old female who presents with chief complaint of nausea and vomiting. She states she has had this issue consistently over the past 1 month. Vital signs grossly unremarkable. Abdomen without reproducible tenderness. Chart he was reported patient did have a normal CAT scan 3 days ago. She was also diagnosed with UTI. Laboratory Knouse is sedated reveal hypokalemia and hypomagnesia. On repeat examination she states that her nausea has improved significantly. She states this is the best she has felt in 1 month. She is declining IV electrolyte replacement and requesting p.o. challenge. She was given oral magnesium and potassium. She did tolerate this well in addition to her oral UTI antibiotic. She is requesting discharge home. Overall I do feel this is reasonable. I did discuss the possibility of hospitalization for IV electrolyte replacement. However she states she is feeling much better. She will be discharged home with oral Reglan. She did have her UTI medication refilled that she has been throwing up recently. Short course of oral potassium and magnesium replacement will be prescribed. She was instructed to follow-up with her primary care physician in the next 1 to 2 days. Return precautions were discussed and understood. Patient stable for discharge home. Emilia Disclaimer: Emilia Disclaimer: This electronic medical record was generated, in whole or in part, using a voice recognition dictation system. Departure Departure Disposition: 01 HOME, SELF-CARE Condition: GOOD Referrals: CAROLYN BROWN M.D. (PCP) Patient Instructions: Hypokalemia Additional Instructions: Please follow-up with your primary care physician in the next 2 to 3 days. Scripts Nitrofurantoin Macrocrystal (NITROFURANTOIN) 100 Mg Capsule 1 CAP PO BID, #10 CAP Prov: ZANDER CARLSON DO 03/28/20 Magnesium Oxide (Magnesium Oxide) 400 Mg Tablet 400 TAB PO BID for 3 Days, #6 TAB 0 Refills Prov: ZANDER CARLSON DO 03/28/20 Potassium Chloride (POTASSIUM CHLORIDE ) 20 Meq Tablet.er 20 MEQ PO BID for SUPPLEMENT for 6 Days, #12 TAB.SR Prov: ZANDER CARLSON DO 03/28/20 Metoclopramide Hcl (REGLAN) 10 Mg Tablet 10 MG PO TID PRN, #16 TAB 0 Refills Prov: ZANDER CARLSON DO 03/28/20 Justicifation of Admission Dx: Justifications for Admission: Justification of Admission Dx: N/A CHF: Sev. Electrolyte Abnormal ZANDER CARLSON DO Mar 28, 2020 14:27
[2020-03-28] MEDS ORDERED: IV NORMAL SALINE 1000ML BAG 1,000 ML IV ONE (14:30)
[2020-03-28] MEDS ORDERED: OLANZapine IM 10 MG VIAL. IM ONE (14:30)
[2020-03-28] MEDS ORDERED: FAMOTIDINE 20 MG/2 ML VIAL IVP ONE (14:30)
[2020-03-28 14:33] LABS: BASO # 0.1 x10^3/uL (0.0-0.2); BASO % 0 % (0-3); EOS % 0 % (0-3); HEMATOCRIT 39.9 % (36.0-47.0); HEMOGLOBIN 13.6 g/dL (12.0-15.5); LYMPH # 2.1 x10^3/uL (1.0-4.8); LYMPH % 18 % (24-48); MEAN CORPUSCULAR HEMOGLOBIN 33 pg (25-35); MEAN CORPUSCULAR HGB CONC 34 g/dL (31-37); MEAN CORPUSCULAR VOLUME 98 fL (79-100); MONO # 0.8 x10^3/uL (0.0-1.1); MONO % 6 % (0-9); NEUT % 75 % (31-73); PLATELET COUNT 421 x10^3/uL (140-400); RED BLOOD COUNT 4.09 x10^6/uL (3.50-5.40); RED CELL DISTRIBUTION WIDTH 14.4 % (11.5-14.5); WHITE BLOOD COUNT 12.1 x10^3/uL (4.0-11.0)
[2020-03-28 14:53] LABS: ALBUMIN 3.2 g/dL (3.4-5.0); ALBUMIN/GLOBULIN RATIO 0.7 (1.0-1.7); CALCIUM 9.4 mg/dL (8.5-10.1); CREATININE 0.7 mg/dL (0.6-1.0); GFR 94.7; MAGNESIUM 1.7 mg/dL (1.8-2.4); TOTAL PROTEIN 7.6 g/dL (6.4-8.2)
[2020-03-28 14:54] LABS: POTASSIUM 2.8 mmol/L (3.5-5.1)
[2020-03-28 14:56] LABS: PREG TEST PT QUAL NEGATIVE (NEG)
[2020-03-28] MEDS ORDERED: MAGNESIUM SULFATE 2GM 50 ML IV ONE (15:45)
[2020-03-28] MEDS ORDERED: POTASSIUM CL 40MEQ IN 0.9%NACL 1,000 ML IV ONE (16:00)
[2020-03-28] MEDS ORDERED: POTASSIUM CHLORIDE 20 MEQ TABLET.ER. PO ONE (16:00)
[2020-03-28] MEDS ORDERED: NITROFURANTOIN MONOHYD/M-CRYST 100 MG CAPSULE. PO ONE (16:00)
[2020-03-28] MEDS ORDERED: MAGNESIUM OXIDE 400 MG TABLET PO SCH (16:15)
[2020-03-28] MEDS ORDERED: POTA20TA4 PO (17:53)
[2020-03-28] MEDS ORDERED: MAGN400T44 PO (17:53)
[2020-03-28] MEDS ORDERED: METO10TA81 PO (17:53)
[2020-03-28] MEDS ORDERED: NITR100C PO (17:53)
== END 2020-03-28 17:59 | disposition home or self-care (01) ==
LOC: ER 13:52
DX: R33.9 Retention of urine, unspecified (principal); R11.2 Nausea with vomiting, unspecified; F41.9 Anxiety disorder, unspecified; F32.9 Major depressive disorder, single episode, unspecified; K21.9 Gastro-esophageal reflux disease without esophagitis; E78.00 Pure hypercholesterolemia, unspecified; F17.200 Nicotine dependence, unspecified, uncomplicated; Z90.49 Acquired absence of other specified parts of digestive tract; Z98.890 Other specified postprocedural states; Z88.0 Allergy status to penicillin; Z88.5 Allergy status to narcotic agent; Z88.8 Allergy status to other drugs, medicaments and biological substances; Z79.899 Other long term (current) drug therapy
CPT/HCPCS: 36415; 80053; 83690; 83735; 84443; 84703; 85025; 96361; 96372; 96374; 99284; J3490; J7030

== ENCOUNTER 2020-04-20 22:50 | Emergency (ER) | payer OTHER ==
[~2020-04-20] VITALS: Ht 162.6 cm; Wt 65.9 kg
[~2020-04-20 22:50] MED LIST changes: +MAGN400T44 PO; +METO10TA81 PO; +NITR100C PO; +POTA20TA4 PO
[2020-04-21] MEDS ORDERED: IV NORMAL SALINE 1000ML BAG 1,000 ML IV ONE (00:30)
[2020-04-21] MEDS ORDERED: PROCHLORPERAZINE 10 MG/2 ML VIAL. IV ONE (00:30)
--- NOTE | 2020-04-21 00:53 | PHYS DOC ---
Past Medical History Past Medical History: Anxiety, Depression, GERD, High Cholesterol, Other Additional Past Medical Histor: HYPOMAGNESIUM,HYPOKALEMIA Past Surgical History: Cholecystectomy, Other Additional Past Surgical Histo: ankle Smoking Status: Current Every Day Smoker Alcohol Use: Occasionally Drug Use: None General Adult EDM: Chief Complaint: NAUSEA/VOMITING/DIARRHA HPI: HPI: Patient is a 35 year old female who presents for evaluation of upper abdominal pain. Patient has had multiple episodes of nausea and vomiting today. Symptoms been progressing of the past 24 hours. Patient has had similar symptoms many times in the past. She also has a history of chronically low potassium. She is concerned that she may be dehydrated. Furthermore she has a history of chronic anxiety. She is a diabetic. Patient is in mild to early moderate distress on arrival. Patient reports recent loose stools as well Review of Systems: Review of Systems: Constitutional: Denies fever or chills. [] Eyes: Denies change in visual acuity. [] HENT: Denies nasal congestion or sore throat. [] Respiratory: Denies cough or shortness of breath. [] Cardiovascular: Denies chest pain or edema. [] GI: has upper abdominal pain with repeated episodes of nausea and vomiting, no bloody stools but did have recent diarrhea. [] : Denies dysuria. [] Musculoskeletal: Denies back pain or joint pain. [] Integument: Denies rash. [] Neurologic: Denies headache, focal weakness or sensory changes. [] Endocrine: Denies polyuria or polydipsia. [] Lymphatic: Denies swollen glands. [] Psychiatric: Denies depression has chronic anxiety. [] Heart Score: Risk Factors: Risk Factors: DM, Current or recent (<one month) smoker, HTN, HLP, family history of CAD, obesity. Risk Scores: Score 0 - 3: 2.5% MACE over next 6 weeks - Discharge Home Score 4 - 6: 20.3% MACE over next 6 weeks - Admit for Clinical Observation Score 7 - 10: 72.7% MACE over next 6 weeks - Early Invasive Strategies Current Medications: Current Medications Medications (Trade) Dose Ordered Sig/Kwaku Start Time Stop Time Status Last Admin Dose Admin Famotidine (Pepcid Vial) 20 mg 1X ONCE 04/21/20 01:00 04/21/20 01:01 Metoclopramide HCl (Reglan Vial) 10 mg 1X ONCE 04/21/20 01:00 04/21/20 01:01 Ondansetron HCl (Zofran) 4 mg 1X ONCE 04/21/20 01:00 04/21/20 01:01 Prochlorperazine Edisylate (Compazine) 10 mg 1X ONCE 04/21/20 00:30 04/21/20 00:31 DC Sodium Chloride 1,000 ml @ 1,000 mls/hr Q1H 04/21/20 01:00 04/21/20 01:59 Allergies: Allergies: Allergies Coded Allergies Type Severity Reaction Last Updated Verified Corticosteroids (Glucocorticoids) Allergy Severe facial swelling 05/26/19 Yes Penicillins Allergy Intermediate hives 05/26/19 Yes I S O L A T I O N *CONTACT* Allergy Unknown 06/03/19 Yes hydrocodone Adverse Reaction Mild Nausea 03/24/20 Yes Physical Exam: PE: Constitutional: Well developed, well nourished, mild to moderate acute distress, non-toxic appearance. [] HENT: Normocephalic, atraumatic, bilateral external ears normal, oropharynx moist, nose normal. [] Eyes: PERRL, EOMI, conjunctiva normal, no discharge. [] Neck: Normal range of motion, no tenderness, supple. [] Cardiovascular:Heart rate regular rhythm, no murmur [] Lungs & Thorax: Bilateral breath sounds clear to auscultation [] Abdomen: Bowel sounds normal, soft, mild upper abd tenderness, no masses. [] Skin: Warm, dry, no erythema, no rash. [] Back: No tenderness, no CVA tenderness. [] Extremities: No tenderness, no cyanosis, ROM intact, no edema. [] Neurologic: Alert and oriented, normal motor function, normal sensory function, no focal deficits noted. [] Psychologic: Affect normal, judgement normal, mood anxious. [] Current Patient Data: Labs: Laboratory Tests Test 04/21/20 00:52 04/21/20 03:21 White Blood Count 14.6 x10^3/uL Red Blood Count 4.08 x10^6/uL Hemoglobin 13.6 g/dL Hematocrit 39.2 % Mean Corpuscular Volume 96 fL Mean Corpuscular Hemoglobin 33 pg Mean Corpuscular Hemoglobin Concent 35 g/dL Red Cell Distribution Width 14.7 % Platelet Count 376 x10^3/uL Neutrophils (%) (Auto) 82 % Lymphocytes (%) (Auto) 12 % Monocytes (%) (Auto) 6 % Eosinophils (%) (Auto) 0 % Basophils (%) (Auto) 0 % Neutrophils # (Auto) 11.9 x10^3/uL Lymphocytes # (Auto) 1.8 x10^3/uL Monocytes # (Auto) 0.8 x10^3/uL Eosinophils # (Auto) 0.0 x10^3/uL Basophils # (Auto) 0.0 x10^3/uL Sodium Level 134 mmol/L Potassium Level 3.1 mmol/L Chloride Level 96 mmol/L Carbon Dioxide Level 25 mmol/L Anion Gap 13 Blood Urea Nitrogen 5 mg/dL Creatinine 0.9 mg/dL Estimated GFR (Cockcroft-Gault) 70.8 BUN/Creatinine Ratio 6 Glucose Level 201 mg/dL Calcium Level 9.0 mg/dL Magnesium Level 1.7 mg/dL Total Bilirubin 0.7 mg/dL Aspartate Amino Transf (AST/SGOT) 42 U/L Alanine Aminotransferase (ALT/SGPT) 18 U/L Alkaline Phosphatase 99 U/L Troponin I Quantitative < 0.017 ng/mL Total Protein 7.4 g/dL Albumin 2.8 g/dL Albumin/Globulin Ratio 0.6 Lipase 68 U/L Urine Collection Type Unknown Urine Color Wendy Urine Clarity Clear Urine pH 7.5 Urine Specific [place] 1.025 Urine Protein 30 mg/dL Urine Glucose (UA) Negative mg/dL Urine Ketones (Stick) 15 mg/dL Urine Blood Negative Urine Nitrite Negative Urine Bilirubin Small Urine Urobilinogen Dipstick 1.0 mg/dL Urine Leukocyte Esterase Small Urine RBC Occ /HPF Urine WBC 5-10 /HPF Urine Squamous Epithelial Cells Mod /LPF Urine Bacteria Many /HPF Urine Mucus Marked /LPF Current Medications Medications (Trade) Dose Ordered Sig/Kwaku Route PRN Reason Start Time Stop Time Status Last Admin Dose Admin Prochlorperazine Edisylate (Compazine) 10 mg 1X ONCE IV 04/21/20 00:30 04/21/20 00:31 DC 04/21/20 01:24 Sodium Chloride 1,000 ml @ 1,000 mls/hr 1X ONCE IV 04/21/20 00:30 04/21/20 01:29 DC Sodium Chloride 1,000 ml @ 1,000 mls/hr Q1H IV 04/21/20 01:00 04/21/20 01:59 DC 04/21/20 01:00 Ondansetron HCl (Zofran) 4 mg 1X ONCE IVP 04/21/20 01:00 04/21/20 01:01 DC 04/21/20 01:23 Famotidine (Pepcid Vial) 20 mg 1X ONCE IVP 04/21/20 01:00 04/21/20 01:01 DC 04/21/20 01:24 Metoclopramide HCl (Reglan Vial) 10 mg 1X ONCE IVP 04/21/20 01:00 04/21/20 01:19 DC Metoclopramide HCl (Reglan Vial) 10 mg 1X ONCE IVP 04/21/20 04:15 04/21/20 04:16 UNV Potassium Chloride (Klor-Con) 40 meq 1X ONCE PO 04/21/20 04:15 04/21/20 04:16 UNV Vital Signs: Vital Signs Date Time Temp Pulse Resp B/P (MAP) Pulse Ox O2 Delivery O2 Flow Rate FiO2 04/20/20 23:24 97.9 98 18 158/102 (120) 96 Room Air 97.9 EKG: EKG: Sinus tachycardia rate 101, leftward axis, artifact present, nonspecific ST segment changes, not STEMI at 1:55 AM [] Radiology/Procedures: Radiology/Procedures: [] Course & Med Decision Making: Course & Med Decision Making Pertinent Labs and Imaging studies reviewed. (See chart for details) [] Dragon Disclaimer: Dragon Disclaimer: This electronic medical record was generated, in whole or in part, using a voice recognition dictation system. 0405 stable, patient reassessed. Patient states her symptoms are greatly improved. Patient has an elevated blood sugar but is stable. She has been given potassium replacement. She also need a prescription for coverage of her bladder infection. Pt was dehydrated Departure Departure Impression: Primary Impression: Upper abdominal pain Additional Impressions: Dehydration Hyperglycemia Acute UTI Hypokalemia Disposition: HOME, SELF-CARE Condition: STABLE Referrals: DENNISE GEORGE MD (PCP) Patient Instructions: Abdominal Pain (Nonspecific), Hypokalemia, Nausea and Vomiting, Urinary Tract Infection Additional Instructions: Drink plenty fluids, rest, keep close track of your home blood sugars. Take the antibiotic as directed for your bladder infection. Take the potassium replacement as well Scripts Metoclopramide Hcl (REGLAN) 10 Mg Tablet 1 TAB PO QID for 10 Days, #20 TAB 0 Refills before food and bedtime Prov: RADHA CASTRO DO 04/21/20 Potassium Chloride (Klor-Con 10) 10 Meq Tablet.er 10 MEQ PO BID, #30 TAB.SR Prov: RADHA CASTRO DO 04/21/20 Nitrofurantoin Monohyd/M-Cryst (MACROBID 100 MG CAPSULE) 100 Mg Capsule 1 CAP PO BID for 7 Days, #14 CAP 0 Refills Prov: RADHA CASTRO DO 04/21/20 Justicifation of Admission Dx: Justifications for Admission: Justification of Admission Dx: N/A CHF: Sev. Electrolyte Abnormal RADHA CASTRO DO Apr 21, 2020 00:53
[2020-04-21 01:00] LABS: BASO % 0 % (0-3); EOS % 0 % (0-3); HEMATOCRIT 39.2 % (36.0-47.0); HEMOGLOBIN 13.6 g/dL (12.0-15.5); LYMPH # 1.8 x10^3/uL (1.0-4.8); LYMPH % 12 % (24-48); MEAN CORPUSCULAR HEMOGLOBIN 33 pg (25-35); MEAN CORPUSCULAR HGB CONC 35 g/dL (31-37); MEAN CORPUSCULAR VOLUME 96 fL (79-100); MONO # 0.8 x10^3/uL (0.0-1.1); MONO % 6 % (0-9); NEUT # 11.9 x10^3/uL (1.8-7.7); NEUT % 82 % (31-73); PLATELET COUNT 376 x10^3/uL (140-400); RED BLOOD COUNT 4.08 x10^6/uL (3.50-5.40); RED CELL DISTRIBUTION WIDTH 14.7 % (11.5-14.5); WHITE BLOOD COUNT 14.6 x10^3/uL (4.0-11.0)
[2020-04-21] MEDS ORDERED: ONDANSETRON PF 4 MG/2 ML VIAL. IVP ONE (01:00)
[2020-04-21] MEDS ORDERED: FAMOTIDINE 20 MG/2 ML VIAL IVP ONE (01:00)
[2020-04-21] MEDS ORDERED: METOCLOPRAMIDE HCL 10 MG/2 ML VIAL. IVP ONE ×2 (01:00→04:30)
[2020-04-21] MEDS ORDERED: IV NORMAL SALINE 1000ML BAG 1,000 ML IV SCH (01:00)
[2020-04-21 01:20] LABS: CREATININE 0.9 mg/dL (0.6-1.0); GFR 70.8; POTASSIUM 3.1 mmol/L (3.5-5.1)
[2020-04-21 01:25] LABS: ALBUMIN 2.8 g/dL (3.4-5.0); ALBUMIN/GLOBULIN RATIO 0.6 (1.0-1.7); MAGNESIUM 1.7 mg/dL (1.8-2.4); TOTAL BILIRUBIN 0.7 mg/dL (0.2-1.0); TOTAL PROTEIN 7.4 g/dL (6.4-8.2)
[2020-04-21 03:11] VITALS: BP 116/66
[2020-04-21 03:38] LABS: BILIRUBIN,URINE SMALL (NEG); CLARITY,URINE CLEAR; COLOR,URINE AMBER; NITRITE,URINE NEGATIVE (NEG); PH,URINE 7.5 (<5.0-8.0); PROTEIN,URINE 30 mg/dL (NEG-TRACE)
[2020-04-21 03:49] LABS: BACTERIA,URINE MANY /HPF (0-FEW); RBC,URINE OCC /HPF (0-2); SQUAMOUS EPITHELIAL CELL,UR MOD /LPF
[2020-04-21] MEDS ORDERED: POTA10TA6 PO (04:16)
[2020-04-21] MEDS ORDERED: METO10TA81 PO (04:16)
[2020-04-21] MEDS ORDERED: NITR100C62 PO (04:16)
[2020-04-21] MEDS ORDERED: POTASSIUM CHLORIDE 20 MEQ TABLET.ER. PO ONE (04:30)
--- NOTE | 2020-04-21 05:17 | EKG ---
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
== END 2020-04-21 04:39 | disposition home or self-care (01) ==
LOC: ER 22:50
DX: N39.0 Urinary tract infection, site not specified (principal); E86.0 Dehydration; E11.65 Type 2 diabetes mellitus with hyperglycemia; E87.6 Hypokalemia; E78.00 Pure hypercholesterolemia, unspecified; K21.9 Gastro-esophageal reflux disease without esophagitis; F17.200 Nicotine dependence, unspecified, uncomplicated; R00.0 Tachycardia, unspecified; Z90.49 Acquired absence of other specified parts of digestive tract; Z88.0 Allergy status to penicillin; Z91.041 Radiographic dye allergy status; Z88.5 Allergy status to narcotic agent; Z88.8 Allergy status to other drugs, medicaments and biological substances
CPT/HCPCS: 36415; 80053; 81001; 83690; 83735; 84484; 85025; 87086; 93005; 96361; 96374; 96375; 99285; J0780; J2405; J2765; J3490; J7030

== ENCOUNTER 2020-05-06 17:25 | Inpatient (IN) | payer OTHER ==
[~2020-05-06] VITALS: Ht 162.6 cm; Wt 61.0 kg
[~2020-05-06 17:25] MED LIST changes: +NITR100C62 PO; +POTA10TA6 PO
--- NOTE | 2020-05-06 18:25 | PHYS DOC ---
Past Medical History Past Medical History: Anxiety, Depression, GERD, High Cholesterol, Other Additional Past Medical Histor: HYPOMAGNESIUM,HYPOKALEMIA Past Surgical History: Cholecystectomy, Other Additional Past Surgical Histo: ankle Smoking Status: Current Every Day Smoker Alcohol Use: Occasionally Drug Use: None General Adult EDM: Chief Complaint: NEURO SYMPTOMS/DEFICITS HPI: HPI: Patient is a 35 year old female who presents with a chief complaint of 2 months of nausea and vomiting. Patient also states over the last month she has had progressive a sending weakness and ataxia. Patient also describes decreased sensation in her legs and hands. Patient is having trouble using her hands and has trouble walking. Patient denies any abdominal pain at this time. Symptoms are worse with eating and ambulation. Review of Systems: Review of Systems: Constitutional: Denies fever or chills. [] Eyes: Denies change in visual acuity. [] HENT: Denies nasal congestion or sore throat. [] Respiratory: Denies cough or shortness of breath. [] Cardiovascular: Denies chest pain or edema. [] GI: Complains of nausea vomiting but no diarrhea or abdominal pain : Denies dysuria. [] Musculoskeletal: Denies back pain or joint pain. [] Integument: Denies rash. [] Neurologic: Denies headache, but complains of progressive weakness and decrease sensation Endocrine: Denies polyuria or polydipsia. [] Lymphatic: Denies swollen glands. [] Psychiatric: Denies depression or anxiety. [] Heart Score: Risk Factors: Risk Factors: DM, Current or recent (<one month) smoker, HTN, HLP, family history of CAD, obesity. Risk Scores: Score 0 - 3: 2.5% MACE over next 6 weeks - Discharge Home Score 4 - 6: 20.3% MACE over next 6 weeks - Admit for Clinical Observation Score 7 - 10: 72.7% MACE over next 6 weeks - Early Invasive Strategies Current Medications: Current Medications Medications (Trade) Dose Ordered Sig/Kwaku Start Time Stop Time Status Last Admin Dose Admin Prochlorperazine Edisylate (Compazine) 10 mg 1X ONCE 05/06/20 18:30 05/06/20 18:31 Sodium Chloride 1,000 ml @ 1,000 mls/hr Q1H 05/06/20 18:30 05/06/20 19:29 Allergies: Allergies: Allergies Coded Allergies Type Severity Reaction Last Updated Verified Corticosteroids (Glucocorticoids) Allergy Severe facial swelling 05/26/19 Yes Penicillins Allergy Intermediate hives 05/26/19 Yes I S O L A T I O N *CONTACT* Allergy Unknown 06/03/19 Yes hydrocodone Adverse Reaction Mild Nausea 03/24/20 Yes Physical Exam: PE: Constitutional: Well developed, well nourished, mild distress HENT: Normocephalic, atraumatic, bilateral external ears normal, dry oral mucosa nose normal. [] Eyes: PERRLA, EOMI, conjunctiva normal, no discharge. [] Neck: Normal range of motion, no tenderness, supple, no stridor. [] Cardiovascular:Heart rate regular rhythm, peripheral pulses intact, cap refill brisk Lungs & Thorax: Bilateral breath sounds clear, no respiratory distress Abdomen: Soft, nontender no guarding or rebound Skin: Mildly ashen Back: No tenderness, no CVA tenderness. [] Extremities: No tenderness, no cyanosis, no clubbing, ROM intact, no edema. [] Neurologic: Decreased sensation and strength in bilateral lower extremities and difficulty coordination with the hands. Psychologic: Affect normal, judgement normal, mood normal. [] Current Patient Data: Labs: Laboratory Tests Test 05/06/20 18:00 White Blood Count 13.4 x10^3/uL Red Blood Count 4.48 x10^6/uL Hemoglobin 14.9 g/dL Hematocrit 42.9 % Mean Corpuscular Volume 96 fL Mean Corpuscular Hemoglobin 33 pg Mean Corpuscular Hemoglobin Concent 35 g/dL Red Cell Distribution Width 14.9 % Platelet Count 628 x10^3/uL Neutrophils (%) (Auto) 61 % Lymphocytes (%) (Auto) 28 % Monocytes (%) (Auto) 9 % Eosinophils (%) (Auto) 1 % Basophils (%) (Auto) 1 % Neutrophils # (Auto) 8.2 x10^3/uL Lymphocytes # (Auto) 3.7 x10^3/uL Monocytes # (Auto) 1.2 x10^3/uL Eosinophils # (Auto) 0.1 x10^3/uL Basophils # (Auto) 0.1 x10^3/uL Prothrombin Time 12.2 SEC Prothromb Time International Ratio 0.9 Activated Partial Thromboplast Time 28 SEC Sodium Level 133 mmol/L Potassium Level 2.3 mmol/L Chloride Level 90 mmol/L Carbon Dioxide Level 29 mmol/L Anion Gap 14 Blood Urea Nitrogen 8 mg/dL Creatinine 0.9 mg/dL Estimated GFR (Cockcroft-Gault) 70.8 BUN/Creatinine Ratio 9 Glucose Level 104 mg/dL Calcium Level 9.5 mg/dL Phosphorus Level 2.6 mg/dL Magnesium Level 1.7 mg/dL Total Bilirubin 0.8 mg/dL Aspartate Amino Transf (AST/SGOT) 65 U/L Alanine Aminotransferase (ALT/SGPT) 35 U/L Alkaline Phosphatase 71 U/L Creatine Kinase 71 U/L Total Protein 8.1 g/dL Albumin 3.3 g/dL Albumin/Globulin Ratio 0.7 Lipase 95 U/L Serum Test, Qualitative Negative Current Medications Medications (Trade) Dose Ordered Sig/Kwaku Route PRN Reason Start Time Stop Time Status Last Admin Dose Admin Sodium Chloride 1,000 ml @ 1,000 mls/hr Q1H IV 05/06/20 18:30 05/06/20 19:29 05/06/20 18:30 Prochlorperazine Edisylate (Compazine) 10 mg 1X ONCE IVP 05/06/20 18:30 05/06/20 18:31 DC 05/06/20 18:49 Magnesium Sulfate 50 ml @ 25 mls/hr 1X ONCE IV 05/06/20 19:00 05/06/20 20:59 Potassium Chloride (Klor-Con) 60 meq 1X ONCE PO 05/06/20 19:00 05/06/20 19:01 Potassium Chloride/Water 100 ml @ 50 mls/hr 1X ONCE IV 05/06/20 19:00 05/06/20 20:59 Vital Signs: Vital Signs Date Time Temp Pulse Resp B/P (MAP) Pulse Ox O2 Delivery O2 Flow Rate FiO2 05/06/20 17:54 98.6 93 16 105/67 (80) 100 Room Air 98.6 EKG: EKG: [] Radiology/Procedures: Radiology/Procedures: [] Course & Med Decision Making: Course & Med Decision Making Pertinent Labs and Imaging studies reviewed. (See chart for details) [] 35-year-old female presents with nausea vomiting and found to have profound hypokalemia. Patient was given IV magnesium as well as potassium and oral potassium. Patient be admitted to Dr. farella and neurology consult be placed. Emilia Disclaimer: Dragon Disclaimer: This electronic medical record was generated, in whole or in part, using a voice recognition dictation system. Departure Departure Impression: Primary Impression: Nausea & vomiting Additional Impression: Hypokalemia Disposition: ADMITTED INPATIENT Admitting Physician: SUZETTE york) Condition: STABLE Referrals: DENNISE GEORGE MD (PCP) Justicifation of Admission Dx: Justifications for Admission: Justification of Admission Dx: Yes CHF: Sev. Electrolyte Abnormal Comments: severe hypokalemia HONORIO SALINAS MD May 06, 2020 18:25
[2020-05-06 18:26] LABS: BASO # 0.1 x10^3/uL (0.0-0.2); BASO % 1 % (0-3); EOS # 0.1 x10^3/uL (0.0-0.7); EOS % 1 % (0-3); HEMATOCRIT 42.9 % (36.0-47.0); HEMOGLOBIN 14.9 g/dL (12.0-15.5); LYMPH # 3.7 x10^3/uL (1.0-4.8); LYMPH % 28 % (24-48); MEAN CORPUSCULAR HEMOGLOBIN 33 pg (25-35); MEAN CORPUSCULAR HGB CONC 35 g/dL (31-37); MEAN CORPUSCULAR VOLUME 96 fL (79-100); MONO # 1.2 x10^3/uL (0.0-1.1); MONO % 9 % (0-9); NEUT # 8.2 x10^3/uL (1.8-7.7); NEUT % 61 % (31-73); PLATELET COUNT 628 x10^3/uL (140-400); RED BLOOD COUNT 4.48 x10^6/uL (3.50-5.40); RED CELL DISTRIBUTION WIDTH 14.9 % (11.5-14.5); WHITE BLOOD COUNT 13.4 x10^3/uL (4.0-11.0)
[2020-05-06] MEDS ORDERED: PROCHLORPERAZINE 10 MG/2 ML VIAL. IVP ONE (18:30)
[2020-05-06] MEDS ORDERED: IV NORMAL SALINE 1000ML BAG 1,000 ML IV SCH (18:30)
[2020-05-06 18:39] LABS: PROTHROMBIN TIME PATIENT 12.2 SEC (11.7-14.0)
[2020-05-06 18:40] LABS: PREG TEST PT QUAL NEGATIVE (NEG)
[2020-05-06 18:41] LABS: ALBUMIN 3.3 g/dL (3.4-5.0); ALBUMIN/GLOBULIN RATIO 0.7 (1.0-1.7); CALCIUM 9.5 mg/dL (8.5-10.1); CREATININE 0.9 mg/dL (0.6-1.0); GFR 70.8; MAGNESIUM 1.7 mg/dL (1.8-2.4); PHOSPHORUS 2.6 mg/dL (2.6-4.7); TOTAL BILIRUBIN 0.8 mg/dL (0.2-1.0); TOTAL PROTEIN 8.1 g/dL (6.4-8.2)
[2020-05-06 18:46] LABS: POTASSIUM 2.3 mmol/L (3.5-5.1)
[2020-05-06] MEDS ORDERED: ACETAMINOPHEN 325 MG TABLET. PO PRN (19:00)
[2020-05-06] MEDS ORDERED: ZOLPIDEM 5 MG TABLET. PO PRN (19:00)
[2020-05-06] MEDS ORDERED: METOCLOPRAMIDE 10 MG TABLET. PO PRN (19:00)
[2020-05-06] MEDS ORDERED: PROMETHAZINE 25 MG SUPP.RECT. PR PRN (19:00)
[2020-05-06] MEDS ORDERED: POTASSIUM CHLORIDE 20MEQ 100 ML IV ONE (19:00)
[2020-05-06] MEDS ORDERED: diphenhydrAMINE 50 MG/ML VIAL IVP PRN (19:00)
[2020-05-06] MEDS ORDERED: DOCUSATE SODIUM 100 MG CAPSULE. PO PRN (19:00)
[2020-05-06] MEDS ORDERED: guaiFENesin ORAL 200 MG/10 ML LIQUID. PO PRN (19:00)
[2020-05-06] MEDS ORDERED: MAGNESIUM SULFATE 2GM 50 ML IV ONE (19:00)
[2020-05-06] MEDS ORDERED: LORazepam 0.5 MG TABLET PO PRN (19:00)
[2020-05-06] MEDS ORDERED: ALBUTEROL SULFATE 2.5 MG/3 ML NEBU. NEB PRN (19:00)
[2020-05-06] MEDS ORDERED: POTASSIUM CHLORIDE 20 MEQ TABLET.ER. PO ONE (19:00)
[2020-05-06] MEDS ORDERED: PANTOPRAZOLE IV PUSH 40 MG VIAL. IVP ONE (19:30)
[2020-05-06 20:00] VITALS: BP 112/77
[2020-05-06] MEDS: MAGNESIUM OXIDE 400 MG TABLET PO SCH (21:00)
[2020-05-06] MEDS ORDERED: POTASSIUM CL 40MEQ D5-0.45NACL 1,000 ML IV ONE (21:00)
[2020-05-06] MEDS: POTASSIUM CHLORIDE 20 MEQ TABLET.ER. PO SCH ×2 (21:00→23:00)
[2020-05-06] MEDS ORDERED: CITALOPRAM 20 MG TABLET. PO SCH (21:00)
[2020-05-06] MEDS ORDERED: AMITRIPTYLINE HCL 10 MG TABLET. PO SCH (21:00)
[2020-05-06] MEDS: METOCLOPRAMIDE 10 MG TABLET. PO SCH (21:00)
--- NOTE | 2020-05-06 21:01 | PDOC1 ---
History and Physical Date of Admission Date of Admission 05/06/2020 Identification/Chief Complaint Chief Complaint I have numbness in my legs Source Source: Chart review, Patient History of Present Illness History of Present Illness Patient is a 35 year old female with past medical history of depression, anxiety and Edgar's who was scheduled for a repeat EGD in January and hsas not been able to follow up with GI who was in her usual state of health until 5 days prior to her admission when she complained of generalized fatigue, feeling quite weak, having intractable nausea and being unable to have proper oral intake. 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 She had an episode of near syncope that she describes as her "legs giving out". When asked to elaborate further she tells me she feels numbness over her lower extremities and feels weakness in an ascending fashion. PAtient denies lightheadness, no dizziness. no loss of consciousness. She denies blurred vision, no recent history of viral infections, no diarrhea, no recent vaccinations, no other provoking factors. As far as her diet goes she denies rcent changes to her diet, no dietary supplements, no energy drinks, no gluten intolerance, no hematochezia, no black tarry stools noted either. She was found to have severe electrolyte abnormalities reason why we were asked to admit patient for further evaluation and treatment. ER history as follows: Patient is a 35 year old female who presents with a chief complaint of 2 months of nausea and vomiting. Patient also states over the last month she has had progressive a sending weakness and ataxia. Patient also describes decreased sensation in her legs and hands. Patient is having trouble using her hands and has trouble walking. Patient denies any abdominal pain at this time. Symptoms are worse with eating and ambulation. Past Medical History Cardiovascular: No pertinent hx Pulmonary: No pertinent hx GI: No pertinent hx Heme/Onc: No pertinent hx Hepatobiliary: No pertinent hx Psych: No pertinent hx Rheumatologic: No pertinent hx Infectious disease: No pertinent hx Renal/: No pertinent hx Endocrine: No pertinent hx Past Surgical History Past Surgical History: Cholecystectomy, Other Family History Family History: Family History Unknown Social History ALCOHOL: rare Drugs: None Current Problem List Problem List Problems Medical Problems: (1) Hypokalemia Status: Acute (2) Nausea & vomiting Status: Acute Current Medications Current Medications Current Medications Medications (Trade) Dose Ordered Sig/Kwaku Start Time Stop Time Status Last Admin Dose Admin Acetaminophen (Tylenol) 650 mg PRN Q4HRS PRN 05/06/20 19:00 Albuterol Sulfate (Ventolin Neb Soln) 2.5 mg PRN Q4HRS PRN 05/06/20 19:00 Amitriptyline HCl (Elavil) 10 mg QHS 05/06/20 21:00 Citalopram Hydrobromide (CeleXA) 20 mg QHS 05/06/20 21:00 Diphenhydramine HCl (Benadryl) 25 mg PRN Q4HRS PRN 05/06/20 19:00 Docusate Sodium (Colace) 100 mg PRN BID PRN 05/06/20 19:00 Guaifenesin (Robitussin) 200 mg PRN Q4HRS PRN 05/06/20 19:00 Lorazepam (Ativan) 0.5 mg PRN Q4HRS PRN 05/06/20 19:00 Magnesium Oxide (Magnesium Oxide) 400 mg BID 05/06/20 21:00 Magnesium Sulfate 50 ml @ 25 mls/hr 1X ONCE 05/06/20 19:00 05/06/20 20:59 DC 05/06/20 19:10 25 MLS/HR Metoclopramide HCl (Reglan) 10 mg TID PRN PRN 05/06/20 19:00 Ondansetron HCl (Zofran) 4 mg PRN Q4HRS PRN 05/06/20 19:00 Pantoprazole Sodium (PROTONIX VIAL for IV PUSH) 40 mg 1X ONCE 05/06/20 19:30 05/06/20 19:31 DC 05/06/20 19:45 40 MG Potassium Chloride/Dextrose/ Sod Cl 1,000 ml @ 125 mls/hr Q8H ONCE 05/06/20 21:00 05/07/20 04:59 Potassium Chloride/Water 100 ml @ 50 mls/hr 1X ONCE 05/06/20 19:00 05/06/20 20:59 DC 05/06/20 19:12 50 MLS/HR Potassium Chloride (Klor-Con) 40 meq Q2H 05/06/20 21:00 05/07/20 03:01 Prochlorperazine Edisylate (Compazine) 10 mg 1X ONCE 05/06/20 18:30 05/06/20 18:31 DC 05/06/20 18:49 10 MG Promethazine HCl (Phenergan Supp) 25 mg PRN Q6HRS PRN 05/06/20 19:00 Sodium Chloride 1,000 ml @ 1,000 mls/hr Q1H 05/06/20 18:30 05/06/20 19:29 DC 05/06/20 18:30 1,000 MLS/HR Zolpidem Tartrate (Ambien) 5 mg PRN QHS PRN 05/06/20 19:00 Allergies Allergies Allergies Coded Allergies Type Severity Reaction Last Updated Verified Corticosteroids (Glucocorticoids) Allergy Severe facial swelling 05/26/19 Yes Penicillins Allergy Intermediate hives 05/26/19 Yes I S O L A T I O N *CONTACT* Allergy Unknown 06/03/19 Yes hydrocodone Adverse Reaction Mild Nausea 03/24/20 Yes ROS Review of System CONSTITUTIONAL: No fever or chills EYES: No recent changes SKIN: No rash or itching CARDIOVASCULAR: No chest pain, syncope, palpitations, or edema RESPIRATORY: No SOB or cough GASTROINTESTINAL: No nausea, vomiting or abdominal pain NEUROLOGICAL: No headaches or weakness ENDOCRINE: No cold or heat intolerance GENITOURINARY: No urgency or frequency of urination MUSCULOSKELETAL: No back pain or joint pain LYMPHATICS: No enlarged lymph nodes PSYCHIATRIC: No anxiety or depression Physical Exam Physical Exam GEN.: No apparent distress. Alert and oriented. HEENT: Head is normocephalic, atraumatic NECK: Supple. LUNGS: Clear to auscultation. HEART: RRR, S1, S2 present. Peripheral pulses intact ABDOMEN: Soft, nontender. Positive bowel sounds. EXTREMITIES: Without any cyanosis. NEUROLOGIC: Normal speech, normal tone cn 2 to 12 intact no motor deficits she does seem to have sensory deficits over the lower extremities. fund of knowledge repetition is intact proprioception seems to be impaired, vibration was not tested. PSYCHIATRIC: Normal affect, normal mood. SKIN: No ulcerations Vitals Vitals Vital Signs Date Time Temp Pulse Resp B/P (MAP) Pulse Ox O2 Delivery O2 Flow Rate FiO2 05/06/20 20:00 95 102/71 (81) 100 Room Air 05/06/20 17:54 98.6 16 98.6 Labs Labs Laboratory Tests Test 05/06/20 18:00 White Blood Count 13.4 x10^3/uL (4.0-11.0) Red Blood Count 4.48 x10^6/uL (3.50-5.40) Hemoglobin 14.9 g/dL (12.0-15.5) Hematocrit 42.9 % (36.0-47.0) Mean Corpuscular Volume 96 fL (79-100) Mean Corpuscular Hemoglobin 33 pg (25-35) Mean Corpuscular Hemoglobin Concent 35 g/dL (31-37) Red Cell Distribution Width 14.9 % (11.5-14.5) Platelet Count 628 x10^3/uL (140-400) Neutrophils (%) (Auto) 61 % (31-73) Lymphocytes (%) (Auto) 28 % (24-48) Monocytes (%) (Auto) 9 % (0-9) Eosinophils (%) (Auto) 1 % (0-3) Basophils (%) (Auto) 1 % (0-3) Neutrophils # (Auto) 8.2 x10^3/uL (1.8-7.7) Lymphocytes # (Auto) 3.7 x10^3/uL (1.0-4.8) Monocytes # (Auto) 1.2 x10^3/uL (0.0-1.1) Eosinophils # (Auto) 0.1 x10^3/uL (0.0-0.7) Basophils # (Auto) 0.1 x10^3/uL (0.0-0.2) Prothrombin Time 12.2 SEC (11.7-14.0) Prothromb Time International Ratio 0.9 (0.8-1.1) Activated Partial Thromboplast Time 28 SEC (24-38) Sodium Level 133 mmol/L (136-145) Potassium Level 2.3 mmol/L (3.5-5.1) Chloride Level 90 mmol/L (98-107) Carbon Dioxide Level 29 mmol/L (21-32) Anion Gap 14 (6-14) Blood Urea Nitrogen 8 mg/dL (7-20) Creatinine 0.9 mg/dL (0.6-1.0) Estimated GFR (Cockcroft-Gault) 70.8 BUN/Creatinine Ratio 9 (6-20) Glucose Level 104 mg/dL (70-99) Calcium Level 9.5 mg/dL (8.5-10.1) Phosphorus Level 2.6 mg/dL (2.6-4.7) Magnesium Level 1.7 mg/dL (1.8-2.4) Total Bilirubin 0.8 mg/dL (0.2-1.0) Aspartate Amino Transf (AST/SGOT) 65 U/L (15-37) Alanine Aminotransferase (ALT/SGPT) 35 U/L (14-59) Alkaline Phosphatase 71 U/L (46-116) Creatine Kinase 71 U/L (26-192) Total Protein 8.1 g/dL (6.4-8.2) Albumin 3.3 g/dL (3.4-5.0) Albumin/Globulin Ratio 0.7 (1.0-1.7) Lipase 95 U/L (73-393) Serum Test, Qualitative Negative (NEG) Laboratory Tests Test 05/06/20 18:00 White Blood Count 13.4 x10^3/uL (4.0-11.0) Red Blood Count 4.48 x10^6/uL (3.50-5.40) Hemoglobin 14.9 g/dL (12.0-15.5) Hematocrit 42.9 % (36.0-47.0) Mean Corpuscular Volume 96 fL (79-100) Mean Corpuscular Hemoglobin 33 pg (25-35) Mean Corpuscular Hemoglobin Concent 35 g/dL (31-37) Red Cell Distribution Width 14.9 % (11.5-14.5) Platelet Count 628 x10^3/uL (140-400) Neutrophils (%) (Auto) 61 % (31-73) Lymphocytes (%) (Auto) 28 % (24-48) Monocytes (%) (Auto) 9 % (0-9) Eosinophils (%) (Auto) 1 % (0-3) Basophils (%) (Auto) 1 % (0-3) Neutrophils # (Auto) 8.2 x10^3/uL (1.8-7.7) Lymphocytes # (Auto) 3.7 x10^3/uL (1.0-4.8) Monocytes # (Auto) 1.2 x10^3/uL (0.0-1.1) Eosinophils # (Auto) 0.1 x10^3/uL (0.0-0.7) Basophils # (Auto) 0.1 x10^3/uL (0.0-0.2) Prothrombin Time 12.2 SEC (11.7-14.0) Prothromb Time International Ratio 0.9 (0.8-1.1) Activated Partial Thromboplast Time 28 SEC (24-38) Sodium Level 133 mmol/L (136-145) Potassium Level 2.3 mmol/L (3.5-5.1) Chloride Level 90 mmol/L (98-107) Carbon Dioxide Level 29 mmol/L (21-32) Anion Gap 14 (6-14) Blood Urea Nitrogen 8 mg/dL (7-20) Creatinine 0.9 mg/dL (0.6-1.0) Estimated GFR (Cockcroft-Gault) 70.8 BUN/Creatinine Ratio 9 (6-20) Glucose Level 104 mg/dL (70-99) Calcium Level 9.5 mg/dL (8.5-10.1) Phosphorus Level 2.6 mg/dL (2.6-4.7) Magnesium Level 1.7 mg/dL (1.8-2.4) Total Bilirubin 0.8 mg/dL (0.2-1.0) Aspartate Amino Transf (AST/SGOT) 65 U/L (15-37) Alanine Aminotransferase (ALT/SGPT) 35 U/L (14-59) Alkaline Phosphatase 71 U/L (46-116) Creatine Kinase 71 U/L (26-192) Total Protein 8.1 g/dL (6.4-8.2) Albumin 3.3 g/dL (3.4-5.0) Albumin/Globulin Ratio 0.7 (1.0-1.7) Lipase 95 U/L (73-393) Serum Test, Qualitative Negative (NEG) VTE Prophylaxis Ordered VTE Prophylaxis Devices: No VTE Pharmacological Prophylaxi: Yes Assessment/Plan Assessment/Plan Severe electrolyte disturbance Severe hypokalemia Paresthesias Generalized weakness Ataxia? History of Barrets GERD Intractable vomiting Plan: will check b12 ascending paralysis is concerning also of concern is her loss of proprioception, she may need imaging studies if her symptoms do not resolve with electrolyte replacement she does not give a history consistent with cauda equina, no saddle anesthesia, etc and does not have fever or chills, nor signs of toxicity to think of a possible infectious etiology for her symptoms she denies history of recent viral infections She will need neurological reevaluation after replacing electrolytes DVT prophylaxis: SCD Justifications for Admission Other Justification JAVI STATON MD May 06, 2020 21:01
[2020-05-06] MEDS: ONDANSETRON PF 4 MG/2 ML VIAL. IV PRN (21:05)
[2020-05-06 23:00] VITALS: BP 118/77
[2020-05-07] MEDS: POTASSIUM CHLORIDE 20 MEQ TABLET.ER. PO SCH ×2 (01:00→03:00)
[2020-05-07] MEDS: PROCHLORPERAZINE 10 MG/2 ML VIAL. IV PRN ×2 (01:46→07:51)
[2020-05-07 04:28] LABS: BASO # 0.1 x10^3/uL (0.0-0.2); BASO % 1 % (0-3); EOS # 0.2 x10^3/uL (0.0-0.7); EOS % 2 % (0-3); HEMATOCRIT 35.6 % (36.0-47.0); HEMOGLOBIN 12.4 g/dL (12.0-15.5); LYMPH # 3.1 x10^3/uL (1.0-4.8); LYMPH % 30 % (24-48); MEAN CORPUSCULAR HEMOGLOBIN 34 pg (25-35); MEAN CORPUSCULAR HGB CONC 35 g/dL (31-37); MEAN CORPUSCULAR VOLUME 97 fL (79-100); MONO # 1.1 x10^3/uL (0.0-1.1); MONO % 11 % (0-9); NEUT % 58 % (31-73); PLATELET COUNT 426 x10^3/uL (140-400); RED BLOOD COUNT 3.68 x10^6/uL (3.50-5.40); RED CELL DISTRIBUTION WIDTH 14.6 % (11.5-14.5); WHITE BLOOD COUNT 10.4 x10^3/uL (4.0-11.0)
[2020-05-07 04:42] LABS: CALCIUM 8.2 mg/dL (8.5-10.1); CREATININE 0.7 mg/dL (0.6-1.0); GFR 94.7
[2020-05-07 04:48] LABS: POTASSIUM 2.5 mmol/L (3.5-5.1)
[2020-05-07] MEDS ORDERED: IV NORMAL SALINE 1000ML BAG 1,000 ML IV SCH (05:15)
[2020-05-07] MEDS: POTASSIUM CHLORIDE 10MEQ 100 ML IV SCH ×4 (05:24→09:53)
[2020-05-07] MEDS: ONDANSETRON PF 4 MG/2 ML VIAL. IV PRN (05:29)
--- NOTE | 2020-05-07 07:04 | EKG ---
[facility] [address] [place] [address] Test Date: 2020-05-06 Test Time: 19:13:31 Pat Name: GENEVIEVE ALANIZ Department: Room: Gender: F Supervisor Purification: : [id number] Requested By: HONORIO SALINAS Order Number: [id number] Reading MD: Measurements Intervals Damon Rate: 88 P: 34 SC: 138 QRS: -38 QRSD: 78 T: 0 QT: 424 QTc: 517 Interpretive Statements SINUS RHYTHM ABNORMAL LEFT AXIS DEVIATION LEFT ANTERIOR FASCICULAR BLOCK QRS(T) CONTOUR ABNORMALITY CONSIDER ANTEROSEPTAL MYOCARDIAL DAMAGE PROLONGED QT ABNORMAL ECG RI6.02 No previous ECG available for comparison
[2020-05-07] MEDS: METOCLOPRAMIDE 10 MG TABLET. PO SCH ×2 (07:30→11:30)
[2020-05-07 07:59] VITALS: BP 117/81
[2020-05-07] MEDS: MAGNESIUM OXIDE 400 MG TABLET PO SCH (09:52)
[2020-05-07 11:59] VITALS: BP 121/77
[2020-05-07] MEDS ORDERED: POTASSIUM CHLORIDE 20 MEQ TABLET.ER. PO ONE (12:00)
--- NOTE | 2020-05-07 12:00 | NUR ---
patient reported to RN that she fell walking to the bathroom. pt stated her "legs gave out". VSS. no injuries noted to legs. pt denies pain or other symptoms.
[2020-05-07 12:19] LABS: CALCIUM 8.3 mg/dL (8.5-10.1); CREATININE 0.7 mg/dL (0.6-1.0); GFR 94.7; MAGNESIUM 1.9 mg/dL (1.8-2.4); POTASSIUM 3.2 mmol/L (3.5-5.1)
[2020-05-07] MEDS ORDERED: POTA20TA4 PO (12:23)
--- NOTE | 2020-05-07 12:25 | DISCH ---
DISCHARGE INSTRUCTIONS Condition on Discharge Condition on Discharge: Stable Activity After Discharge Activity Instructions for Disc: No restrictions, Activity as tolerated Bathing Instructions: No Tub Bath until see Lifting Instructions after Dis: No heavy lifting Diet after Discharge Diet after Discharge: Regular Wound Incision Care Wound/Incision Care: Ice to area for comfort, May get incision wet Checks after Discharge DC Comment: Take your potassium pills before meals Contacting the DREmily after DC Call your doctor for: If your condition worsens Follow-Up Follow up with: PCP within 1 week of discharge Follow Up With: Check BMP within 2 weeks Treatment/Equipment after DC Adaptive Equipment Issued: None WAGNER COLES MD May 07, 2020 12:24
--- NOTE | 2020-05-07 13:19 | NUR ---
pt informed physician of fall. Dr. Flores indicated pt needed to stay one additional night as a result. RN informed pt of this and pt was adamant about leaving. stated she would leave AMA if she had to. Discussed with Dr. Serna. pt will be allowed to discharge. pt re-educated on need to wear boot and use crutches at home as she has been. pt also educated on need to follow up with Dr. Flores within the next week.
--- NOTE | 2020-05-07 13:26 | PDOC3 ---
[facility]-Discharge Summary Date of Admission: Date of Admission: May 06, 2020 Date of Discharge: Date of Discharge: May 07, 2020 Admission Diagnosis: Admitting Diagnosis: Severe electrolyte disturbance Severe hypokalemia Paresthesias Generalized weakness Ataxia? 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 She had an episode of near syncope that she describes as her "legs giving out". When asked to elaborate further she tells me she feels numbness over her lower extremities and feels weakness in an ascending fashion. PAtient denies lightheadness, no dizziness. no loss of consciousness. She denies blurred vision, no recent history of viral infections, no diarrhea, no recent vaccinations, no other provoking factors. As far as her diet goes she denies rcent changes to her diet, no dietary supplements, no energy drinks, no gluten intolerance, no hematochezia, no black tarry stools noted either. She was found to have severe electrolyte abnormalities reason why we were asked to admit patient for further evaluation and treatment. ER history as follows: Patient is a 35 year old female who presents with a chief complaint of 2 months of nausea and vomiting. Patient also states over the last month she has had progressive a sending weakness and ataxia. Patient also describes decreased sensation in her legs and hands. Patient is having trouble using her hands and has trouble walking. Patient denies any abdominal pain at this time. Symptoms are worse with eating and ambulation. Patient was admitted for further management and IV potassium replacement. Her Potassium went from 2.0 to 3.2. Her symptoms are much improved and she was tolerating diet on day of discharge. On day of discharge, patient did have a fall episode and she states she tripped over her pole. There was no injury incurred. 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 This is chronic in nature and she does have a boot and crutches and wheelchair at home if needed. It was explained to her in great detail that she needs to f/u with the neurologist regarding her previous injury. The rest of her hospital course was uneventful. Disposition: Disposition/Orders: D/C to Home Activity: Activity: Resume previous activity Diet: Diet: Regular Medications: Home Meds Active Scripts Potassium Chloride (POTASSIUM CHLORIDE ) 20 Meq Tablet.er, 20 MEQ PO BIDAC for SUPPLEMENT for 30 Days, #60 TAB.SR Prov:WAGNER COLES MD 05/07/20 Metoclopramide Hcl (REGLAN) 10 Mg Tablet, 10 MG PO TID PRN, #16 TAB 0 Refills Prov:ZANDER CARLSON DO 03/28/20 Prochlorperazine Maleate (Compazine) 10 Mg Tablet, 1 TAB PO Q6HRS, #14 TAB 0 Refills Prov:DHRUV LEGGETT APRN 03/26/20 Ondansetron (ONDANSETRON ODT) 4 Mg Tab.rapdis, 1 TAB PO PRN Q6-8HRS, #16 TAB Prov:CHAVA ADAMS [employer] 03/24/20 Amitriptyline Hcl (AMITRIPTYLINE HCL) 10 Mg Tablet, 1 TAB PO QHS for underweight for 90 Days, #90 TAB 1 Refill Prov:MARIA TERESA ERICKSON MD 05/27/19 Citalopram Hydrobromide (CELEXA) 20 Mg Tablet, 1 TAB PO QHS for underweight, #90 TAB 3 Refills Prov:MARIA TERESA ERICKSON MD 05/27/19 Reported Medications Esomeprazole Magnesium (NEXIUM CAPSULE) 40 Mg Capsule.dr, 1 CAP PO DAILY for acid reflux, #30 CAP 5 Refills 03/20/20 Scheduled Amitriptyline Hcl (Amitriptyline Hcl), 1 TAB PO QHS Citalopram Hydrobromide (Celexa), 1 TAB PO QHS Esomeprazole Magnesium (Nexium Capsule), 1 CAP PO DAILY, (Reported) Metoclopramide Hcl (Reglan), 10 MG PO TID PRN Ondansetron (Ondansetron Odt), 1 TAB PO PRN Q6-8HRS Potassium Chloride (Potassium Chloride ), 20 MEQ PO BIDAC Prochlorperazine Maleate (Compazine), 1 TAB PO Q6HRS Total Time: Total Time: Total discharge time 25 minutes Justicifation of Admission Dx: Justifications for Admission: Justification of Admission Dx: Yes CHF: Sev. Electrolyte Abnormal WAGNER COLES MD May 07, 2020 13:26
--- NOTE | 2020-05-07 13:51 | NUR ---
patient discharged home with father. meds and follow up reviewed. pt voiced understanding. pt stable upon dc
--- NOTE | 2020-05-07 14:00 | PDOC2 ---
NEUROLOGY CONSULT Date of Service DOS: DATE: 05/07/20 TIME: 13:53 Reason for Consult Reason for Consult: Numbness and weakness Referring Physician Referring Physician: Dr. Serna PCP: Dr. Charles Source Source: Chart review, Patient History of Present Illness History of Present Illness The patient is a 35-year-old right-handed female who for the past month has had nausea, vomiting, paresthesias, generalized weakness. She says this got worse about 5 days ago. She has trouble walking and has fallen. She was brought into the emergency department where she was found to have hypokalemia, 2.2 and also hypomagnesemia. She has had potassium and magnesium replaced, and is feeling quite a bit better. However, she says that she still feels off balance and fell while walking in her room just before I saw her. 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 There is no cognitive change, diplopia, dysphagia, dysarthria, history of stroke, seizure, or head injury. 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 [employer] Current Medications Current Medications Current Medications Sodium Chloride 1,000 ml @ 1,000 mls/hr Q1H IV Last administered on 05/06/20at 18:30; Start 05/06/20 at 18:30; Stop 05/06/20 at 19:29; Status DC Prochlorperazine Edisylate (Compazine) 10 mg 1X ONCE IVP Last administered on 05/06/20at 18:49; Start 05/06/20 at 18:30; Stop 05/06/20 at 18:31; Status DC Magnesium Sulfate 50 ml @ 25 mls/hr 1X ONCE IV Last administered on 05/06/20at 19:10; Start 05/06/20 at 19:00; Stop 05/06/20 at 20:59; Status DC Potassium Chloride (Klor-Con) 60 meq 1X ONCE PO ; Start 05/06/20 at 19:00; Stop 05/06/20 at 19:01; Status DC Potassium Chloride/Water 100 ml @ 50 mls/hr 1X ONCE IV Last administered on 05/06/20at 19:12; Start 05/06/20 at 19:00; Stop 05/06/20 at 20:59; Status DC Ondansetron HCl (Zofran) 4 mg PRN Q4HRS PRN IV NAUSEA/VOMITING Last administered on 05/07/20at 05:29; Start 05/06/20 at 19:00 Zolpidem Tartrate (Ambien) 5 mg PRN QHS PRN PO INSOMNIA; Start 05/06/20 at 19:00 Acetaminophen (Tylenol) 650 mg PRN Q4HRS PRN PO TEMP OVER 100.4F OR MILD PAIN; Start 05/06/20 at 19:00 Diphenhydramine HCl (Benadryl) 25 mg PRN Q4HRS PRN IVP ITCHING; Start 05/06/20 at 19:00 Docusate Sodium (Colace) 100 mg PRN BID PRN PO HARD STOOLS; Start 05/06/20 at 19:00 Albuterol Sulfate (Ventolin Neb Soln) 2.5 mg PRN Q4HRS PRN NEB SHORTNESS OF BREATH; Start 05/06/20 at 19:00 Guaifenesin (Robitussin) 200 mg PRN Q4HRS PRN PO COUGH; Start 05/06/20 at 19:00 Lorazepam (Ativan) 0.5 mg PRN Q4HRS PRN PO ANXIETY / AGITATION; Start 05/06/20 at 19:00 Amitriptyline HCl (Elavil) 10 mg QHS PO ; Start 05/06/20 at 21:00 Citalopram Hydrobromide (CeleXA) 20 mg QHS PO ; Start 05/06/20 at 21:00 Magnesium Oxide (Magnesium Oxide) 400 mg BID PO Last administered on 05/07/20at 09:52; Start 05/06/20 at 21:00 Metoclopramide HCl (Reglan) 10 mg QIDACHS PO ; Start 05/06/20 at 21:00 Metoclopramide HCl (Reglan) 10 mg TID PRN PRN PO NAUSEA/VOMITING; Start 05/06/20 at 19:00 Promethazine HCl (Phenergan Supp) 25 mg PRN Q6HRS PRN ME NAUSEA/VOMITING; Start 05/06/20 at 19:00 Pantoprazole Sodium (PROTONIX VIAL for IV PUSH) 40 mg 1X ONCE IVP Last administered on 05/06/20at 19:45; Start 05/06/20 at 19:30; Stop 05/06/20 at 19:31; Status DC Potassium Chloride (Klor-Con) 40 meq Q2H PO ; Start 05/06/20 at 21:00; Stop 05/07/20 at 03:01; Status DC Potassium Chloride/Dextrose/ Sod Cl 1,000 ml @ 125 mls/hr Q8H ONCE IV Last ad ministered on 05/06/20at 21:05; Start 05/06/20 at 21:00; Stop 05/07/20 at 04:59; Status DC Prochlorperazine Edisylate (Compazine) 10 mg PRN Q6HRS PRN IV NAUSEA/VOMITING 2ND CHOICE Last administered on 05/07/20at 07:51; Start 05/06/20 at 23:00 Potassium Chloride/Water 100 ml @ 100 mls/hr Q1H IV Last administered on 05/07/20at 09:53; Start 05/07/20 at 05:30; Stop 05/07/20 at 17:29 Sodium Chloride 1,000 ml @ 75 mls/hr [id number] IV Last administered on 05/07/20at 05:24; Start 05/07/20 at 05:15 Potassium Chloride (Klor-Con) 40 meq 1X ONCE PO Last administered on 05/07/20at 11:52; Start 05/07/20 at 12:00; Stop 05/07/20 at 12:01; Status DC Active Scripts Active Potassium Chloride (Potassium Chloride) 20 Meq Tablet.er 20 Meq PO BIDAC 30 Days Reglan (Metoclopramide Hcl) 10 Mg Tablet 10 Mg PO TID PRN Compazine (Prochlorperazine Maleate) 10 Mg Tablet 1 Tab PO Q6HRS Ondansetron Odt (Ondansetron) 4 Mg Tab.rapdis 1 Tab PO PRN Q6-8HRS Amitriptyline Hcl 10 Mg Tablet 1 Tab PO QHS 90 Days Celexa (Citalopram Hydrobromide) 20 Mg Tablet 1 Tab PO QHS Reported Nexium Capsule (Esomeprazole Magnesium) 40 Mg Capsule. 1 Cap PO DAILY Allergies Allergies: Coded Allergies: Corticosteroids (Glucocorticoids) (Verified Allergy, Severe, facial swelling, 05/26/19) Penicillins (Verified Allergy, Intermediate, hives, 05/26/19) I S O L A T I O N *CONTACT* (Verified Allergy, Unknown, 06/03/19) mrsa hydrocodone (Verified Adverse Reaction, Mild, Nausea, 03/24/20) ROS Review of System Negative for fever, chills, weight loss, shortness of breath, chest pain, indigestion, hematochezia, melena, and dysuria. Full 14-point review of systems is negative. Physical Exam Physical Examination General: Well-developed, well-nourished white female in no acute distress HEENT: Normocephalic andatraumatic.Temporal arteriespulsatile and nontender. Neck: Supple without bruit, no meningismus Musculoskeletal: Stability:see neurologic. Gait exam:see neurologic. Tone:see neurologic.Strength:see neurologic. Neurological: Mental Status:intact, orientation, memory, attention span/concentration, language, fund of knowledge normal. Cranial Nerves:Pupils equal and reactive to light, extraocular movements areintact, visual phelps are full to confrontation. Facial sensation is normal. There is no facial asymmetry. Vestibulo-ocular reflex is intact. Palate elevates and tongue protrudes in midline. All other cranial related problems are negative except as mentioned before.Reflexes:2+ and symmetric with flexor plantar responses. Motor:5/5 strength with normal tone and bulk. Coordination:Finger-nose finger and [id number] testing are normal. Rapid alternating movements and fine finger movements are intact. Gait:Refuses to let me test as she fell about an hour ago. Sensory:Diffuse pinprick hypesthesia Vitals VITALS Vital Signs Date Time Temp Pulse Resp B/P (MAP) Pulse Ox O2 Delivery O2 Flow Rate FiO2 05/07/20 11:59 97.9 89 18 121/77 (92) 99 Room Air 97.9 Labs Labs Laboratory Tests Test 05/06/20 18:00 05/07/20 04:05 05/07/20 11:40 White Blood Count 13.4 x10^3/uL (4.0-11.0) 10.4 x10^3/uL (4.0-11.0) Red Blood Count 4.48 x10^6/uL (3.50-5.40) 3.68 x10^6/uL (3.50-5.40) Hemoglobin 14.9 g/dL (12.0-15.5) 12.4 g/dL (12.0-15.5) Hematocrit 42.9 % (36.0-47.0) 35.6 % (36.0-47.0) Mean Corpuscular Volume 96 fL (79-100) 97 fL (79-100) Mean Corpuscular Hemoglobin 33 pg (25-35) 34 pg (25-35) Mean Corpuscular Hemoglobin Concent 35 g/dL (31-37) 35 g/dL (31-37) Red Cell Distribution Width 14.9 % (11.5-14.5) 14.6 % (11.5-14.5) Platelet Count 628 x10^3/uL (140-400) 426 x10^3/uL (140-400) Neutrophils (%) (Auto) 61 % (31-73) 58 % (31-73) Lymphocytes (%) (Auto) 28 % (24-48) 30 % (24-48) Monocytes (%) (Auto) 9 % (0-9) 11 % (0-9) Eosinophils (%) (Auto) 1 % (0-3) 2 % (0-3) Basophils (%) (Auto) 1 % (0-3) 1 % (0-3) Neutrophils # (Auto) 8.2 x10^3/uL (1.8-7.7) 6.0 x10^3/uL (1.8-7.7) Lymphocytes # (Auto) 3.7 x10^3/uL (1.0-4.8) 3.1 x10^3/uL (1.0-4.8) Monocytes # (Auto) 1.2 x10^3/uL (0.0-1.1) 1.1 x10^3/uL (0.0-1.1) Eosinophils # (Auto) 0.1 x10^3/uL (0.0-0.7) 0.2 x10^3/uL (0.0-0.7) Basophils # (Auto) 0.1 x10^3/uL (0.0-0.2) 0.1 x10^3/uL (0.0-0.2) Prothrombin Time 12.2 SEC (11.7-14.0) Prothromb Time International Ratio 0.9 (0.8-1.1) Activated Partial Thromboplast Time 28 SEC (24-38) Sodium Level 133 mmol/L (136-145) 137 mmol/L (136-145) 137 mmol/L (136-145) Potassium Level 2.3 mmol/L (3.5-5.1) 2.5 mmol/L (3.5-5.1) 3.2 mmol/L (3.5-5.1) Chloride Level 90 mmol/L (98-107) 100 mmol/L (98-107) 100 mmol/L (98-107) Carbon Dioxide Level 29 mmol/L (21-32) 31 mmol/L (21-32) 28 mmol/L (21-32) Anion Gap 14 (6-14) 6 (6-14) 9 (6-14) Blood Urea Nitrogen 8 mg/dL (7-20) 6 mg/dL (7-20) 4 mg/dL (7-20) Creatinine 0.9 mg/dL (0.6-1.0) 0.7 mg/dL (0.6-1.0) 0.7 mg/dL (0.6-1.0) Estimated GFR (Cockcroft-Gault) 70.8 94.7 94.7 BUN/Creatinine Ratio 9 (6-20) Glucose Level 104 mg/dL (70-99) 121 mg/dL (70-99) 89 mg/dL (70-99) Calcium Level 9.5 mg/dL (8.5-10.1) 8.2 mg/dL (8.5-10.1) 8.3 mg/dL (8.5-10.1) Phosphorus Level 2.6 mg/dL (2.6-4.7) Magnesium Level 1.7 mg/dL (1.8-2.4) 2.2 mg/dL (1.8-2.4) 1.9 mg/dL (1.8-2.4) Total Bilirubin 0.8 mg/dL (0.2-1.0) Aspartate Amino Transf (AST/SGOT) 65 U/L (15-37) Alanine Aminotransferase (ALT/SGPT) 35 U/L (14-59) Alkaline Phosphatase 71 U/L (46-116) Creatine Kinase 71 U/L (26-192) Total Protein 8.1 g/dL (6.4-8.2) Albumin 3.3 g/dL (3.4-5.0) Albumin/Globulin Ratio 0.7 (1.0-1.7) Lipase 95 U/L (73-393) Serum Test, Qualitative Negative (NEG) Laboratory Tests Test 05/06/20 18:00 05/07/20 04:05 05/07/20 11:40 White Blood Count 13.4 x10^3/uL (4.0-11.0) 10.4 x10^3/uL (4.0-11.0) Red Blood Count 4.48 x10^6/uL (3.50-5.40) 3.68 x10^6/uL (3.50-5.40) Hemoglobin 14.9 g/dL (12.0-15.5) 12.4 g/dL (12.0-15.5) Hematocrit 42.9 % (36.0-47.0) 35.6 % (36.0-47.0) Mean Corpuscular Volume 96 fL (79-100) 97 fL (79-100) Mean Corpuscular Hemoglobin 33 pg (25-35) 34 pg (25-35) Mean Corpuscular Hemoglobin Concent 35 g/dL (31-37) 35 g/dL (31-37) Red Cell Distribution Width 14.9 % (11.5-14.5) 14.6 % (11.5-14.5) Platelet Count 628 x10^3/uL (140-400) 426 x10^3/uL (140-400) Neutrophils (%) (Auto) 61 % (31-73) 58 % (31-73) Lymphocytes (%) (Auto) 28 % (24-48) 30 % (24-48) Monocytes (%) (Auto) 9 % (0-9) 11 % (0-9) Eosinophils (%) (Auto) 1 % (0-3) 2 % (0-3) Basophils (%) (Auto) 1 % (0-3) 1 % (0-3) Neutrophils # (Auto) 8.2 x10^3/uL (1.8-7.7) 6.0 x10^3/uL (1.8-7.7) Lymphocytes # (Auto) 3.7 x10^3/uL (1.0-4.8) 3.1 x10^3/uL (1.0-4.8) Monocytes # (Auto) 1.2 x10^3/uL (0.0-1.1) 1.1 x10^3/uL (0.0-1.1) Eosinophils # (Auto) 0.1 x10^3/uL (0.0-0.7) 0.2 x10^3/uL (0.0-0.7) Basophils # (Auto) 0.1 x10^3/uL (0.0-0.2) 0.1 x10^3/uL (0.0-0.2) Prothrombin Time 12.2 SEC (11.7-14.0) Prothromb Time International Ratio 0.9 (0.8-1.1) Activated Partial Thromboplast Time 28 SEC (24-38) Sodium Level 133 mmol/L (136-145) 137 mmol/L (136-145) 137 mmol/L (136-145) Potassium Level 2.3 mmol/L (3.5-5.1) 2.5 mmol/L (3.5-5.1) 3.2 mmol/L (3.5-5.1) Chloride Level 90 mmol/L (98-107) 100 mmol/L (98-107) 100 mmol/L (98-107) Carbon Dioxide Level 29 mmol/L (21-32) 31 mmol/L (21-32) 28 mmol/L (21-32) Anion Gap 14 (6-14) 6 (6-14) 9 (6-14) Blood Urea Nitrogen 8 mg/dL (7-20) 6 mg/dL (7-20) 4 mg/dL (7-20) Creatinine 0.9 mg/dL (0.6-1.0) 0.7 mg/dL (0.6-1.0) 0.7 mg/dL (0.6-1.0) Estimated GFR (Cockcroft-Gault) 70.8 94.7 94.7 BUN/Creatinine Ratio 9 (6-20) Glucose Level 104 mg/dL (70-99) 121 mg/dL (70-99) 89 mg/dL (70-99) Calcium Level 9.5 mg/dL (8.5-10.1) 8.2 mg/dL (8.5-10.1) 8.3 mg/dL (8.5-10.1) Phosphorus Level 2.6 mg/dL (2.6-4.7) Magnesium Level 1.7 mg/dL (1.8-2.4) 2.2 mg/dL (1.8-2.4) 1.9 mg/dL (1.8-2.4) Total Bilirubin 0.8 mg/dL (0.2-1.0) Aspartate Amino Transf (AST/SGOT) 65 U/L (15-37) Alanine Aminotransferase (ALT/SGPT) 35 U/L (14-59) Alkaline Phosphatase 71 U/L (46-116) Creatine Kinase 71 U/L (26-192) Total Protein 8.1 g/dL (6.4-8.2) Albumin 3.3 g/dL (3.4-5.0) Albumin/Globulin Ratio 0.7 (1.0-1.7) Lipase 95 U/L (73-393) Serum Test, Qualitative Negative (NEG) Assessment/Plan Assessment/Plan Impression: Paresthesias and unsteadiness due to electrolyte abnormalities, she is getting better but still is unsteady. The diffuse decreased sensation is strange for a peripheral neuropathy, she has preserved reflexes and strength, so I doubt this is acute neuropathy such as Guyon Loredo. I also find no evidence of central nervous system disease to be concerning for, for instance, multiple sclerosis. Recommendations: Observe 1 more night Rehabilitation modalities Additional studies including more lab work, EMG/NCV, MRI of brain, if symptoms do not continue improving with electrolyte correction. GI work-up Discussed with Dr. Serna Thank you for letting me help with the patient's care. HANNAH WEBER MD May 07, 2020 14:00
== END 2020-05-07 12:00 | disposition home or self-care (01) | DRG 641 ==
LOC: ER 17:25 → 5 NORTH 19:00
PROVIDERS: ADMIT Internal Medicine; ATTEND Internal Medicine
DX: E87.6 Hypokalemia (principal); E78.00 Pure hypercholesterolemia, unspecified; E78.5 Hyperlipidemia, unspecified; E83.42 Hypomagnesemia; G62.9 Polyneuropathy, unspecified; K21.9 Gastro-esophageal reflux disease without esophagitis; Z87.891 Personal history of nicotine dependence; F32.9 Major depressive disorder, single episode, unspecified; F41.9 Anxiety disorder, unspecified; Z90.49 Acquired absence of other specified parts of digestive tract; Z88.5 Allergy status to narcotic agent; Z88.0 Allergy status to penicillin; Z88.8 Allergy status to other drugs, medicaments and biological substances
CPT/HCPCS: 36415; 80048; 80053; 82088; 82550; 82607; 83690; 83735; 84100; 84244; 84703; 85025; 85610; 85730; 93005; 96365; 96368; 96375; 99285; C9113; J0780; J2405; J3475; J3480; J7030; G0378

== ENCOUNTER → 2020-05-25 | Outpatient (CLI) | payer OTHER ==
[~2020-05-25] MED LIST changes: +FENO134C PO
[2020-05-25 08:55] VITALS: BP 140/97
[2020-05-27 20:08] LABS: ANA INTERP Negative (.)
[2020-05-27 21:08] LABS: GLIA IGA 12 units (0-19); GLIA IGG 3 units (0-19); TRANSGLUTAMINASE IGA AB <2 U/mL (0-3); TRANSGLUTAMINASE IGG AB <2 U/mL (0-5)
== END | disposition home or self-care (01) ==
LOC: LAB 09:02
PROVIDERS: ATTEND Internal Medicine Gastroenterology
DX: R53.1 Weakness (principal)
CPT/HCPCS: 36415; 83516; 83519; 86038; 86140; 86255; 84238

== ENCOUNTER → 2020-05-25 | Day surgery (SDC) | payer OTHER ==
[~2020-05-25] MED LIST changes: +IV RINGERS,LACTATED 1000ML 1,000 ML IV SCH; +PROPOFOL 10 MG/ML (20ML) VIAL. IV ONE
[2020-05-25 08:55] VITALS: BP 140/97
--- NOTE | 2020-05-27 16:06 | PATHOLOGY ---
[facility] Accession Number: [id number] . 01 Material submitted: . PART A: duodenum - DUODENAL BX PART B: esophagus - ESOPHAGEAL BX . 01 Clinical history: . WEIGHT LOSS, NAUSEA, VOMITING . 02 Diagnosis: A. Duodenal biopsies: - No significant pathologic abnormalities. . B. Esophageal biopsies: - Segments of mildly hyperplastic squamous esophageal mucosa and esophagogastric and gastric mucosa showing chronic inflammation, consistent with reflux esophagitis. . (JPM:mml; 05/27/2020) [facility] 05/27/2020 1117 Local . 02 Comment: Sections of the duodenal biopsy reveal segments of duodenal and small intestine mucosa. Where best oriented, the mucosal villi show no sprue-like changes or significant inflammatory changes. . Sections of the esophageal biopsy reveal segments of mildly hyperplastic squamous esophageal mucosa and esophagogastric and gastric mucosa showing mild chronic inflammation. The findings are consistent with reflux esophagitis. There is no evidence of Kong's change, dysplasia, or malignancy. . (JPM:mml; 05/27/2020) . 02 Electronically signed: . Tico Esposito MD, Pathologist NPI- [id number] . 01 Gross description: . A. The specimen is received in formalin, labeled "Natan Lafleur, duodenal biopsy". Received are multiple segments of pale armendariz soft tissue ranging in size from 0.3 to 0.4 cm in maximum dimensions. The specimen is submitted entirely in cassette A1. . B. The specimen is received in formalin, labeled "Natan Miquel, esophageal biopsy". Received are four segments of pale armendariz soft tissue ranging in size from 0.3 to 0.4 cm in maximum dimensions. The specimen is submitted entirely in cassette B1. (CAA; 05/26/2020) QAC/QAC 05/26/2020 1144 Local . 02 Pathologist provided ICD-10: K20.80 . 02 CPT . 155886, [id number] Specimen Comment: A courtesy copy of this report has been sent to [phone], [phone] Specimen Comment: [id number] Specimen Comment: Report sent to ,DR GEORGE / DR YANES Performed at: 01 [facility] [address], [place], [place] [id number] MD Geo Patrick MD Phone: [phone] Performed at: 02 [facility] [address] [place], [place] [id number] MD Tico Esposito MD Phone: [phone]
== END | disposition home or self-care (01) ==
LOC: ENDOS 06:52
PROVIDERS: ATTEND Internal Medicine Gastroenterology
DX: K21.0 Gastro-esophageal reflux disease with esophagitis (principal); Z20.828 Contact with and (suspected) exposure to other viral communicable diseases; K22.70 Barrett's esophagus without dysplasia; F41.9 Anxiety disorder, unspecified; K31.89 Other diseases of stomach and duodenum; F32.9 Major depressive disorder, single episode, unspecified; E78.00 Pure hypercholesterolemia, unspecified; F17.210 Nicotine dependence, cigarettes, uncomplicated; Z72.89 Other problems related to lifestyle; Z83.3 Family history of diabetes mellitus; Z98.890 Other specified postprocedural states; Z79.899 Other long term (current) drug therapy
CPT/HCPCS: 43239; 81025; 87426; J2704; U0003

== ENCOUNTER 2020-06-07 20:12 | Inpatient (IN) | payer OTHER ==
[~2020-06-07] VITALS: Ht 167.6 cm; Wt 70.0 kg
[~2020-06-07 20:12] MED LIST changes: -IV RINGERS,LACTATED 1000ML 1,000 ML IV SCH; -PROPOFOL 10 MG/ML (20ML) VIAL. IV ONE
[2020-06-07] MEDS ORDERED: IV NORMAL SALINE 1000ML BAG 1,000 ML IV ONE ×2 (20:45→22:00)
[2020-06-07] MEDS ORDERED: METOCLOPRAMIDE HCL 10 MG/2 ML VIAL. IVP ONE (20:45)
[2020-06-07 20:54] LABS: BASO # 0.1 x10^3/uL (0.0-0.2); BASO % 0 % (0-3); EOS % 0 % (0-3); HEMATOCRIT 47.7 % (36.0-47.0); HEMOGLOBIN 15.7 g/dL (12.0-15.5); LYMPH % 5 % (24-48); MEAN CORPUSCULAR HEMOGLOBIN 32 pg (25-35); MEAN CORPUSCULAR HGB CONC 33 g/dL (31-37); MEAN CORPUSCULAR VOLUME 98 fL (79-100); MONO # 1.3 x10^3/uL (0.0-1.1); MONO % 6 % (0-9); NEUT # 18.5 x10^3/uL (1.8-7.7); NEUT % 89 % (31-73); PLATELET COUNT 308 x10^3/uL (140-400); RED BLOOD COUNT 4.85 x10^6/uL (3.50-5.40); RED CELL DISTRIBUTION WIDTH 16.7 % (11.5-14.5); WHITE BLOOD COUNT 20.9 x10^3/uL (4.0-11.0)
[2020-06-07] MEDS ORDERED: HALOPERIDOL LACTATE 5 MG/ML VIAL. IVP ONE (21:00)
[2020-06-07 21:01] LABS: CREATININE 1.4 mg/dL (0.6-1.0); GFR 42.5; POTASSIUM 3.5 mmol/L (3.5-5.1)
[2020-06-07 21:07] LABS: ALBUMIN 4.2 g/dL (3.4-5.0); ALBUMIN/GLOBULIN RATIO 0.8 (1.0-1.7); MAGNESIUM 1.8 mg/dL (1.8-2.4); TOTAL BILIRUBIN 2.4 mg/dL (0.2-1.0); TOTAL PROTEIN 9.2 g/dL (6.4-8.2)
[2020-06-07 21:19] LABS: % BANDS 2 % (0-9); % LYMPHS 6 % (24-48); % MONOS 5 % (0-10); % SEGS 87 % (35-66); PLT ESTIMATE ADEQUATE (ADEQUATE)
--- NOTE | 2020-06-07 23:54 | PHYS DOC ---
Past Medical History Past Medical History: Anxiety, Depression, GERD, High Cholesterol, Other Additional Past Medical Histor: HYPOMAGNESIUM,HYPOKALEMIA Past Surgical History: Cholecystectomy, Other Additional Past Surgical Histo: ankle Smoking Status: Current Every Day Smoker Alcohol Use: Occasionally Drug Use: None General Adult EDM: Chief Complaint: NAUSEA/VOMITING/DIARRHA HPI: HPI: Patient is a 35 year old female who presented to ER today for evaluation of nausea and vomiting and muscle cramping, weakness and numbness everywhere. Symptoms have been going on for several days. Patient had has this problem for several months. Patient will evaluate here several times, was admitted to hospital, was evaluated by GI specialist but could not find anything wrong. Patient was tested negative for COVID-19. Patient had a normal EGD last week. Patient does smoke marijuana. Patient denies any cough or fever, no headache, no chest pain, no abdominal pain. Review of Systems: Review of Systems: Constitutional: Denies fever or chills. [] Eyes: Denies change in visual acuity. [] HENT: Denies nasal congestion or sore throat. [] Respiratory: Denies cough or shortness of breath. [] Cardiovascular: Denies chest pain or edema. [] GI: Denies abdominal pain, positive for nausea vomiting and diarrhea. : Denies dysuria. [] Musculoskeletal: Denies back pain or joint pain. Positive for muscle cramping. Integument: Denies rash. [] Neurologic: Denies headache, positive for tingling sensation all over her body Endocrine: Denies polyuria or polydipsia. [] Lymphatic: Denies swollen glands. [] Psychiatric: Denies depression or anxiety. [] Heart Score: Risk Factors: Risk Factors: DM, Current or recent (<one month) smoker, HTN, HLP, family history of CAD, obesity. Risk Scores: Score 0 - 3: 2.5% MACE over next 6 weeks - Discharge Home Score 4 - 6: 20.3% MACE over next 6 weeks - Admit for Clinical Observation Score 7 - 10: 72.7% MACE over next 6 weeks - Early Invasive Strategies Current Medications: Current Medications Medications (Trade) Dose Ordered Sig/Kwaku Start Time Stop Time Status Last Admin Dose Admin Haloperidol Lactate (Haldol Inj) 5 mg 1X ONCE 06/07/20 21:00 06/07/20 21:01 DC 06/07/20 20:54 5 MG Lorazepam (Ativan Inj) 1 mg 1X ONCE 06/07/20 21:00 06/07/20 21:01 DC 06/07/20 20:54 1 MG Metoclopramide HCl (Reglan Vial) 10 mg 1X ONCE 06/07/20 20:45 06/07/20 20:48 DC 06/07/20 20:55 10 MG Sodium Chloride 1,000 ml @ 1,000 mls/hr 1X ONCE 06/07/20 22:00 06/07/20 22:59 DC 06/07/20 21:53 1,000 MLS/HR Allergies: Allergies: Allergies Coded Allergies Type Severity Reaction Last Updated Verified Corticosteroids (Glucocorticoids) Allergy Severe facial swelling 05/25/20 Yes Penicillins Allergy Intermediate hives 05/25/20 Yes I S O L A T I O N *CONTACT* Allergy Unknown 06/03/19 Yes hydrocodone Adverse Reaction Mild Nausea 05/25/20 Yes Physical Exam: PE: Constitutional: Well developed, well nourished, mild acute distress, non-toxic appearance. [] HENT: Normocephalic, atraumatic, bilateral external ears normal, oropharynx IS VERY DRIED, no oral exudates, nose normal. [] Eyes: PERRLA, EOMI, conjunctiva normal, no discharge. [] Neck: Normal range of motion, no tenderness, supple, no stridor. [] Cardiovascular:SINUS TACHYCARDIA, regular rhythm, no murmur [] Lungs & Thorax: Bilateral breath sounds clear to auscultation [] Abdomen: Bowel sounds normal, soft, no tenderness, no masses, no pulsatile masses. [] Skin: CLAMMY. Back: No tenderness, no CVA tenderness. [] Extremities: No tenderness, no cyanosis, no clubbing, ROM intact, no edema. [] Neurologic: Alert and oriented X 3, normal motor function, normal sensory function, no focal deficits noted. [] Psychologic: APPEARED VERY ANXIOUS, NO SUICIDAL IDEATION. Current Patient Data: Labs: Laboratory Tests Test 06/07/20 20:45 White Blood Count 20.9 x10^3/uL (4.0-11.0) H Red Blood Count 4.85 x10^6/uL (3.50-5.40) Hemoglobin 15.7 g/dL (12.0-15.5) H Hematocrit 47.7 % (36.0-47.0) H Mean Corpuscular Volume 98 fL (79-100) Mean Corpuscular Hemoglobin 32 pg (25-35) Mean Corpuscular Hemoglobin Concent 33 g/dL (31-37) Red Cell Distribution Width 16.7 % (11.5-14.5) H Platelet Count 308 x10^3/uL (140-400) Neutrophils (%) (Auto) 89 % (31-73) H Lymphocytes (%) (Auto) 5 % (24-48) L Monocytes (%) (Auto) 6 % (0-9) Eosinophils (%) (Auto) 0 % (0-3) Basophils (%) (Auto) 0 % (0-3) Neutrophils # (Auto) 18.5 x10^3/uL (1.8-7.7) H Lymphocytes # (Auto) 1.0 x10^3/uL (1.0-4.8) Monocytes # (Auto) 1.3 x10^3/uL (0.0-1.1) H Eosinophils # (Auto) 0.0 x10^3/uL (0.0-0.7) Basophils # (Auto) 0.1 x10^3/uL (0.0-0.2) Segmented Neutrophils % 87 % (35-66) H Band Neutrophils % 2 % (0-9) Lymphocytes % 6 % (24-48) L Monocytes % 5 % (0-10) Platelet Estimate Adequate (ADEQUATE) Maternal Serum HCG Beta Subunit < 1 mIU/mL (0-5) Sodium Level 136 mmol/L (136-145) Potassium Level 3.5 mmol/L (3.5-5.1) Chloride Level 89 mmol/L (98-107) L Carbon Dioxide Level 12 mmol/L (21-32) L Anion Gap 35 (6-14) H Blood Urea Nitrogen 3 mg/dL (7-20) L Creatinine 1.4 mg/dL (0.6-1.0) H Estimated GFR (Cockcroft-Gault) 42.5 BUN/Creatinine Ratio 2 (6-20) L Glucose Level 158 mg/dL (70-99) H Calcium Level 11.0 mg/dL (8.5-10.1) H Magnesium Level 1.8 mg/dL (1.8-2.4) Total Bilirubin 2.4 mg/dL (0.2-1.0) H Aspartate Amino Transferase (AST) 99 U/L (15-37) H Alanine Aminotransferase (ALT) 45 U/L (14-59) Alkaline Phosphatase 104 U/L (46-116) Total Protein 9.2 g/dL (6.4-8.2) H Albumin 4.2 g/dL (3.4-5.0) Albumin/Globulin Ratio 0.8 (1.0-1.7) L Lipase 153 U/L (73-393) Laboratory Tests 06/07/20 20:45 Laboratory Tests 06/07/20 20:45 Vital Signs: Vital Signs Date Time Temp Pulse Resp B/P (MAP) Pulse Ox O2 Delivery O2 Flow Rate FiO2 06/07/20 20:34 98.2 124 20 139/89 (106) 98 Room Air 98.2 EKG: EKG: [] Radiology/Procedures: Radiology/Procedures: [][facility] [address] [place] [address] IMAGING REPORT Signed PATIENT: GENEVIEVE ALANIZ ACCOUNT: [id number] : 1985 LOCATION: ER AGE: 35 SEX: F EXAM STATUS: REG ER ORD. PHYSICIAN: BRITNI TORIBIO DO REASON: ABDOMINAL PAIN, NAUSEA, VOMITING PROCEDURE: CT ABDOMEN PELVIS WO CONTRAST Exam: CT abdomen/pelvis with intravenous contrast Indication: Abdominal pain, nausea and vomiting Comparison: CT abdomen pelvis 03/20/2020 Technique: Helical CT imaging performed of the abdomen and pelvis after the intravenous administration of intravenous contrast. Sagittal and coronal reformats were obtained. One or more of the following individualized dose reduction techniques were utilized for this examination: 1. Automated exposure control 2. Adjustment of the mA and/or kV according to patient size 3. Use of iterative reconstruction technique. Findings: Lower chest: The lung bases are clear. Heart is normal in size. Liver: The liver is normal in size and markedly diffusely low in attenuation. No focal lesion Gallbladder/Biliary Tree: The gallbladder is surgically absent. Bowel ducts are normal. Pancreas: Normal. Spleen: Normal. Adrenal Glands: Normal. Kidneys/Ureters/Bladder: Kidneys, ureters, and bladder are normal. Reproductive Organs: Unremarkable. Stomach, small bowel, and colon: The stomach small bowel, and colon are normal. Vasculature: Normal Lymph Nodes: No lymphadenopathy. Peritoneum and retroperitoneum: No free fluid or free air. Bones: No acute osseous abnormality. Impression: Severe hepatic steatosis. Otherwise unremarkable exam. Electronically signed by: Cris Sequeira MD (06/08/2020 1:18 AM) [id number] DICTATED and SIGNED BY: CRIS SEQUEIRA MD DATE: 06/08/20 0118 Course & Med Decision Making: Course & Med Decision Making Pertinent Labs and Imaging studies reviewed. (See chart for details) Patient is a 35-year-old female who presented to ER with nausea vomiting, weakness and numbness everywhere. Patient was found to be dehydrated. Patient was given IV fluid and nausea medication. Patient continued to feel very anxious, her heart rate was fast. CT scan of abdomen pelvis did not show any acute problem. It is suspected that patient has cyclic vomiting syndrome. Patient will be admitted to hospital for IV fluid, IV nausea medication. Dragon Disclaimer: Dragon Disclaimer: This electronic medical record was generated, in whole or in part, using a voice recognition dictation system. Departure Departure Impression: Primary Impression: Intractable nausea and vomiting Additional Impression: Dehydration Disposition: 09 ADMITTED INPT THIS HOSP Admitting Physician: SUZETTE (DR. ERICKSON) Condition: IMPROVED Referrals: SHARMAINE YANES APRN (PCP) BRITNI TORIBIO DO Jun 07, 2020 23:54
--- NOTE | 2020-06-08 01:21 | RAD ---
Exam: CT abdomen/pelvis with intravenous contrast Indication: Abdominal pain, nausea and vomiting Comparison: CT abdomen pelvis 03/20/2020 Technique: Helical CT imaging performed of the abdomen and pelvis after the intravenous administration of intravenous contrast. Sagittal and coronal reformats were obtained. One or more of the following individualized dose reduction techniques were utilized for this examination: 1. Automated exposure control 2. Adjustment of the mA and/or kV according to patient size 3. Use of iterative reconstruction technique. Findings: Lower chest: The lung bases are clear. Heart is normal in size. Liver: The liver is normal in size and markedly diffusely low in attenuation. No focal lesion Gallbladder/Biliary Tree: The gallbladder is surgically absent. Bowel ducts are normal. Pancreas: Normal. Spleen: Normal. Adrenal Glands: Normal. Kidneys/Ureters/Bladder: Kidneys, ureters, and bladder are normal. Reproductive Organs: Unremarkable. Stomach, small bowel, and colon: The stomach small bowel, and colon are normal. Vasculature: Normal Lymph Nodes: No lymphadenopathy. Peritoneum and retroperitoneum: No free fluid or free air. Bones: No acute osseous abnormality. Impression: Severe hepatic steatosis. Otherwise unremarkable exam. Electronically signed by: Cris Sequeira MD (06/08/2020 1:18 AM) [id number]
[2020-06-08 01:48] LABS: BILIRUBIN,URINE SMALL (NEG); CLARITY,URINE CLEAR; NITRITE,URINE NEGATIVE (NEG); PH,URINE 5.5 (<5.0-8.0); PROTEIN,URINE 30 mg/dL (NEG-TRACE)
[2020-06-08 01:56] LABS: COLOR,URINE YELLOW
[2020-06-08 01:57] LABS: AMORPHOUS SEDIMENT,UR PRESENT /HPF; GRANULAR CASTS,URINE OCCASIONAL /HPF; HYALINE CASTS, URINE MODERATE /HPF; RBC,URINE RARE /HPF (0-2)
[2020-06-08 01:58] LABS: BACTERIA,URINE FEW /HPF (0-FEW)
[2020-06-08 02:03] LABS: AMPHETAMINE/METHAMPHETAMINE NEG (NEG); BARBITURATES NEG (NEG); BENZODIAZEPINES NEG (NEG); CANNABINOIDS POS (NEG); COCAINE NEG (NEG); METHADONE NEG (NEG); OPIATES NEG (NEG); PHENCYCLIDINE NEG (NEG)
[2020-06-08] MEDS ORDERED: ONDANSETRON PF 4 MG/2 ML VIAL. IV PRN (03:00)
[2020-06-08] MEDS: IV NORMAL SALINE 1000ML BAG 1,000 ML IV SCH ×2 (03:50→23:52)
[2020-06-08 04:40] VITALS: BP 133/87
[2020-06-08] MEDS ORDERED: MAGNESIUM SULFATE 1GM 100 ML IV ONE (08:00)
[2020-06-08] MEDS ORDERED: POTASSIUM BICARB 10 MEQ EFFERVESCENT TABLET. PO ONE (08:00)
[2020-06-08 09:45] VITALS: BP 128/90
[2020-06-08] MEDS ORDERED: PIP/TAZO PER PHARMACY MC PRN (10:15)
[2020-06-08] MEDS: ONDANSETRON PF 4 MG/2 ML VIAL. IV PRN ×3 (10:15→23:36)
--- NOTE | 2020-06-08 10:15 | NUR ---
I spoke with patient regarding alcohol use and the use of marijuana. She verbalized that she drinks "vodka and sprite a couple times a week", I instructed her to let me know if she has any tremors, N/V, diarrhea or anxiety or any other s/s of alcohol withdrawal. Pt verbalized understanding. Pt also admits to using marijuana several times a week to help her appetite. We discussed the cyclic vomiting that can occur with MJ use.
--- NOTE | 2020-06-08 10:15 | NUR ---
Spoke with patient regarding her allergic reaction to penicillin and she said she had a rash, she verbalized that she has had Zosyn here before and that she didn't have any allergic reaction to it. Dr. Santos was at bedside when pt verbalized this. Dr. Santos will proceed with ordered Zosyn
[2020-06-08] MEDS: PIPERACILLIN/TAZOBACTAM 3.375 GM in IV NORMAL SALINE 50ML 50 ML IV SCH ×2 (11:20→23:57)
--- NOTE | 2020-06-08 11:54 | HP ---
ADMIT DATE: 06/08/2020 CHIEF COMPLAINT: Nausea, vomiting, diarrhea. 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 Basically, she has been developing abdominal cramps with some weakness. She also has nausea, vomiting, diarrhea that has been going on for several days. Rates it at 9/10. She also seems a little depressed, although she kind of denies that at this point. She underwent an endoscopy with Dr. Xavier recently. I do not think they found anything on that. She has been tested for COVID-19; it was negative. She does smoke some marijuana and drinks socially. I discussed the case with ER physician. We are going to admit the patient and consult GI and Psychiatry. It should be noted that she also has electrolyte disturbance with a low magnesium and low potassium. We are going to replace those. PAST MEDICAL HISTORY: Anxiety, depression, GERD, hyperlipidemia, hypertension, cholecystectomy, tobacco abuse, hypomag, hypokalemia. ALLERGIES: STEROIDS PENICILLIN AND HYDROCODONE. FAMILY HISTORY: Diabetes. 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 She smokes and drinks socially. MEDICATIONS: Reviewed, please refer to the MRAD. REVIEW OF SYSTEMS: Unable to obtain. The patient really does not want to talk too much. PHYSICAL EXAMINATION: VITALS: Within normal limits and are stable. GENERAL: She is sleeping. She barely awakens, talks very little. HEENT: Normocephalic, atraumatic, external auditory canals are patent. EYES: Extraocular muscles are intact, pupils are equally round and reactive to light and accommodation. MUSCULOSKELETAL: Well developed, well nourished, good range of motion. ENDOCRINE: No thyromegaly was palpated. LYMPHATICS: No cervical chain or axillary nodes were noted. HEMATOPOIETIC: No bruising. NECK: Supple, no JVD, no thyromegaly was noted. LUNGS: Clear to auscultation in all lung phelps without rhonchi or wheezing. HEART: RRR, S1, S2 present. Peripheral pulses intact, no obvious murmurs were noted. ABDOMEN: Decreased bowel sounds with a soft and nontender abdomen. EXTREMITIES: Without any cyanosis, clubbing, or edema. Pedal pulses intact, Homans sign is negative. NEUROLOGIC: She is very weak. PSYCHIATRIC: She seems depressed. SKIN: No ulcerations or rashes, good skin turgor, no jaundice. VASCULAR: Good capillary refill, neurovascular bundle appears to be intact. LABORATORY DATA: White count 21, hemoglobin 15.7, platelets 308. Electrolytes: Sodium 136, potassium 3.5, chloride 89, bicarb 12, BUN was low at 3, creatinine high at 1.4, calcium is 11. Anion gap of 35. AST is high at 99, ALT 45. Total protein 9.2. IMAGING: CT of the abdomen showed severe hepatic steatosis. ASSESSMENT: Nausea, vomiting, diarrhea, elevation of her AST, which is double of her ALT, which is suspicious for alcohol issues, anion gap metabolic acidosis, leukocytosis, erythrocytosis, hypercalcemia, probable depression, trace urinary tract infection. PLAN: The patient has been admitted. We will give her IV fluids and IV antibiotics. Consult GI, consult Psychiatry. Replace her electrolytes. IV Zosyn per pharmacy. Home meds, DVT prophylaxis. Full code. Trend labs. We are going to check her INR and repeat a complete metabolic panel. Long-term prognosis is guarded. NAYANA [place] DO DR: YOSELIN/rachel JOB#: [id number] / [id number]
[2020-06-08 11:59] LABS: ALBUMIN/GLOBULIN RATIO 0.9 (1.0-1.7); CREATININE 0.7 mg/dL (0.6-1.0); GFR 94.7; TOTAL BILIRUBIN 1.6 mg/dL (0.2-1.0); TOTAL PROTEIN 6.4 g/dL (6.4-8.2)
[2020-06-08 12:21] LABS: PROTHROMBIN TIME PATIENT 13.6 SEC (11.7-14.0)
[2020-06-08] MEDS ORDERED: IV NORMAL SALINE 1000ML BAG 1,000 ML IV SCH (14:45)
--- NOTE | 2020-06-08 14:46 | PDOC2 ---
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 History a bit limited from her currently - still drowsy after Haldol and Ativan in ER. Reviewed chart, records from our office, and d/w nurse. Has h/o recurrent n/v x 1 year. Occurs 2-3 times weekly. Denies precipitating events. Has lost weight. ?associated diarrhea - she says "yes" but falls asleep. Reviewed chart, many ER visits. Looks like Reglan prescribed. I asked her what has changed in the past year - the tells me her ex- . EGD w/ Dr. Xavier on 05/25/20 for h/o Kong's esophagus and n/v showed LA Grade A reflux esophagitis (biopsy c/w reflux, no Kong's), normal stomach, granular mucosa in entire duodenum (biopsy w/o significant abnormalities, no sprue). On Nexium 40mg QD w/ good control of reflux symptoms. Denies dysphagia, hematemesis, abd pain, diarrhea, hematochezia, and melena. Reports normal colonoscopy in the past. S/p cholecystectomy for stones. Severe hepatic steatosis on imaging. GES suggested after EGD - she tells me had a normal GES @ [facility] in the past. Denies pancreas history. IRIS negative, a.m. Cortisol normal, and celiac panel normal in the past. B12 normal this admission. Take diclofenac at home. Records indicate use of amitriptyline for appetite, also notes in chart indicate marijuana use for appetite. Additional h/o leg weakness - has fallen while admitted here in the past - "legs gave out." Apparently requires use of wheelchair and/or walker at home. Office records indicate had neuro workup (also saw here in 04/2020 for unsteadiness and paresthesias) - myasthenia gravis panel ordered (and I think results in chart - in part not performed?) She says has follow-up w/ neurology for MRI in a month, then says has an appt tomorrow. PMH: PMH: GERD, anxiety, depression, hypertriglyceridemia, PCOS, B12 deficiency, HPV/abnormal paps, genital herpes/warts, UTI, hypokalemia cholecystectomy, left groin I&D, wisdom teeth extraction, right ankle surgeries FH: Family History: Cancer (mother - pancreatic cancer), Hypertension Social History: Smoke: <1 pack per day ALCOHOL: other (reports vodka and spirte 2-3 times weekly - outside records note 3 drinks daily) Drugs: Marijuana ("once in a blue ge" - tox screen positive here 03/26/20, 06/08/20) ROS: GEN: Denies fevers, chills, sweats HEENT: Denies blurred vision, sore throat CV: Denies chest pain RESP: Denies shortness of air, cough GI: Per HPI : Denies hematuria, dysuria ENDO: +weight loss NEURO: Denies confusion, dizziness MSK: +weakness - has to use a walker SKIN: Denies jaundice, pruritus Vitals: Vitals: Vital Signs Date Time Temp Pulse Resp B/P (MAP) Pulse Ox O2 Delivery O2 Flow Rate FiO2 06/08/20 09:45 99.1 110 20 128/90 (103) 97 Room Air 99.1 Labs: Labs: Laboratory Tests Test 06/07/20 20:45 06/08/20 01:43 06/08/20 07:58 White Blood Count 20.9 x10^3/uL (4.0-11.0) Red Blood Count 4.85 x10^6/uL (3.50-5.40) Hemoglobin 15.7 g/dL (12.0-15.5) Hematocrit 47.7 % (36.0-47.0) Mean Corpuscular Volume 98 fL (79-100) Mean Corpuscular Hemoglobin 32 pg (25-35) Mean Corpuscular Hemoglobin Concent 33 g/dL (31-37) Red Cell Distribution Width 16.7 % (11.5-14.5) Platelet Count 308 x10^3/uL (140-400) Neutrophils (%) (Auto) 89 % (31-73) Lymphocytes (%) (Auto) 5 % (24-48) Monocytes (%) (Auto) 6 % (0-9) Eosinophils (%) (Auto) 0 % (0-3) Basophils (%) (Auto) 0 % (0-3) Neutrophils # (Auto) 18.5 x10^3/uL (1.8-7.7) Lymphocytes # (Auto) 1.0 x10^3/uL (1.0-4.8) Monocytes # (Auto) 1.3 x10^3/uL (0.0-1.1) Eosinophils # (Auto) 0.0 x10^3/uL (0.0-0.7) Basophils # (Auto) 0.1 x10^3/uL (0.0-0.2) Segmented Neutrophils % 87 % (35-66) Band Neutrophils % 2 % (0-9) Lymphocytes % 6 % (24-48) Monocytes % 5 % (0-10) Platelet Estimate Adequate (ADEQUATE) Maternal Serum HCG Beta Subunit < 1 mIU/mL (0-5) Sodium Level 136 mmol/L (136-145) 136 mmol/L (136-145) Potassium Level 3.5 mmol/L (3.5-5.1) 3.0 mmol/L (3.5-5.1) Chloride Level 89 mmol/L (98-107) 99 mmol/L (98-107) Carbon Dioxide Level 12 mmol/L (21-32) 27 mmol/L (21-32) Anion Gap 35 (6-14) 10 (6-14) Blood Urea Nitrogen 3 mg/dL (7-20) 7 mg/dL (7-20) Creatinine 1.4 mg/dL (0.6-1.0) 0.7 mg/dL (0.6-1.0) Estimated GFR (Cockcroft-Gault) 42.5 94.7 BUN/Creatinine Ratio 2 (6-20) 10 (6-20) Glucose Level 158 mg/dL (70-99) 97 mg/dL (70-99) Calcium Level 11.0 mg/dL (8.5-10.1) 9.0 mg/dL (8.5-10.1) Magnesium Level 1.8 mg/dL (1.8-2.4) Total Bilirubin 2.4 mg/dL (0.2-1.0) 1.6 mg/dL (0.2-1.0) Aspartate Amino Transf (AST/SGOT) 99 U/L (15-37) 59 U/L (15-37) Alanine Aminotransferase (ALT/SGPT) 45 U/L (14-59) 32 U/L (14-59) Alkaline Phosphatase 104 U/L (46-116) 62 U/L (46-116) Total Protein 9.2 g/dL (6.4-8.2) 6.4 g/dL (6.4-8.2) Albumin 4.2 g/dL (3.4-5.0) 3.0 g/dL (3.4-5.0) Albumin/Globulin Ratio 0.8 (1.0-1.7) 0.9 (1.0-1.7) Lipase 153 U/L (73-393) Urine Collection Type U cath Urine Color Yellow Urine Clarity Clear Urine pH 5.5 (<5.0-8.0) Urine Specific [place] 1.020 (1.000-1.030) Urine Protein 30 mg/dL (NEG-TRACE) Urine Glucose (UA) Negative mg/dL (NEG) Urine Ketones (Stick) 15 mg/dL (NEG) Urine Blood Negative (NEG) Urine Nitrite Negative (NEG) Urine Bilirubin Small (NEG) Urine Urobilinogen Dipstick 1.0 mg/dL (0.2 mg/dL) Urine Leukocyte Esterase Trace (NEG) Urine RBC Rare /HPF (0-2) Urine WBC 1-4 /HPF (0-4) Urine Squamous Epithelial Cells Mod /LPF Urine Amorphous Sediment Present /HPF Urine Bacteria Few /HPF (0-FEW) Urine Hyaline Casts Moderate /HPF Urine Granular Casts Occasional /HPF Urine Mucus Mod /LPF Urine Opiates Screen Neg (NEG) Urine Methadone Screen Neg (NEG) Urine Barbiturates Neg (NEG) Urine Phencyclidine Screen Neg (NEG) Urine Amphetamine/Methamphetamine Neg (NEG) Urine Benzodiazepines Screen Neg (NEG) Urine Cocaine Screen Neg (NEG) Urine Cannabinoids Screen Pos (NEG) Urine Ethyl Alcohol Neg (NEG) Prothrombin Time 13.6 SEC (11.7-14.0) Prothromb Time International Ratio 1.1 (0.8-1.1) Vitamin B12 Level 571 pg/mL (247-911) Allergies: Coded Allergies: Corticosteroids (Glucocorticoids) (Verified Allergy, Severe, facial swelling, 05/25/20) Penicillins (Verified Allergy, Intermediate, hives, 05/25/20) I S O L A T I O N *CONTACT* (Verified Allergy, Unknown, 06/03/19) mrsa hydrocodone (Verified Adverse Reaction, Mild, Nausea, 05/25/20) Medications: Current Medications Medications (Trade) Dose Ordered Sig/Kwaku Route PRN Reason Start Time Stop Time Status Last Admin Dose Admin Metoclopramide HCl (Reglan Vial) 10 mg 1X ONCE IVP 06/07/20 20:45 06/07/20 20:48 DC 06/07/20 20:55 Sodium Chloride 1,000 ml @ 1,000 mls/hr 1X ONCE IV 06/07/20 20:45 06/07/20 21:44 DC 06/07/20 20:45 Haloperidol Lactate (Haldol Inj) 5 mg 1X ONCE IVP 06/07/20 21:00 06/07/20 21:01 DC 06/07/20 20:54 Lorazepam (Ativan Inj) 1 mg 1X ONCE IVP 06/07/20 21:00 06/07/20 21:01 DC 06/07/20 20:54 Sodium Chloride 1,000 ml @ 1,000 mls/hr 1X ONCE IV 06/07/20 22:00 06/07/20 22:59 DC 06/07/20 21:53 Ondansetron HCl (Zofran) 4 mg PRN Q8HRS PRN IV NAUSEA/VOMITING 1ST CHOICE 06/08/20 03:00 06/08/20 07:13 DC 06/08/20 04:00 Sodium Chloride 1,000 ml @ 125 mls/hr Q8H IV 06/08/20 03:15 06/08/20 03:50 Ondansetron HCl (Zofran) 4 mg PRN Q4HRS PRN IV NAUSEA/VOMITING 1ST CHOICE 06/08/20 07:15 06/08/20 10:15 Magnesium Sulfate/ Dextrose 100 ml @ 100 mls/hr 1X ONCE IV 06/08/20 08:00 06/08/20 08:59 DC 06/08/20 10:16 Potassium Bicarbonate (Potassium Effervescent Tablet) 20 meq 1X ONCE PO 06/08/20 08:00 06/08/20 08:01 DC 06/08/20 10:17 Piperacillin Sod/ Tazobactam Sod 3.375 gm/Sodium Chloride 50 ml @ 100 mls/hr Q6HRS IV 06/08/20 11:00 06/08/20 11:20 PE: GEN: NAD, resting, lethargic HEENT: Atraumatic, PERRL LUNGS: clear anteriorly HEART: tachycardic ABD: NABS, S/ND/NT EXTREMITY: No edema SKIN: No rashes, no jaundice NEURO/PSYCH: A & O 3, drowsy A/P: A/P: Recurrent n/v, ?diarrhea, weight loss, LE weakness Leukocytosis, TIA (resolved), hypokalemia, elevated bilirubin and AST, low A/G ratio GERD - on PPI QD, last EGD 04/2020 CRC screen - reports normal colonoscopy in the past, unclear timing/location S/p cholecystectomy Severe hepatic steatosis +cannabinoids, ?alcohol use disorder Depression/anxiety FH pancreatic cancer (mother) -- Limited history - she's sleepy - hopefully able to discuss more tomorrow. Reviewed w/ Dr. Xavier who suggests GES and stool studies if diarrhea recurs. GES ordered for tomorrow - may need to delay if ongoing n/v. Note plans for psych and neuro to see as well. ARUN MILNER Jun 08, 2020 14:46
[2020-06-08] MEDS: POTASSIUM CL 40MEQ IN 0.9%NACL 1,000 ML IV SCH (15:04)
[2020-06-08 15:30] VITALS: BP 114/83
[2020-06-08 20:00] VITALS: BP 134/97
--- NOTE | 2020-06-08 23:49 | CONS ---
DATE OF CONSULTATION: 06/08/2020 REFERRING PHYSICIAN: Alisa Alba MD REASON FOR CONSULTATION: Generalized weakness and chronic fatigue. 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 She has had difficulty with recurrent nausea for the last year and severe fatigue for the last 6 months. She is extremely drowsy all the time. She has had difficulty with appetite and has smoked marijuana to help with appetite. She is also on amitriptyline at a low dosage to help with appetite. She has had diarrhea as well. She has a history of B12 deficiency and was on injections for some time. She has a fatty liver, which is being evaluated by Gastroenterology. She has had a cholecystectomy for stones. She has had normal colonoscopy. She has had investigation, including myasthenia gravis antibodies, which are negative. IRIS is negative. Gliadin antibody is negative. She has had imaging, which has not revealed a malignancy in the abdomen and pelvis. She just feels extremely tired all the time. She has not been able to work for the last month. Her legs just give out. She was seen by Neurology at a prior admission on 05/07/2020. They did not feel it represented Guillain-[place] and felt it was a strange presentation for peripheral neuropathy. They did not find evidence for a central nervous system process. They had suggested an MRI brain if symptoms persisted. EMG was also suggested. PAST MEDICAL HISTORY: 1. Hyperlipidemia. 2. Gastroesophageal reflux disease. 3. Kong esophagus. 4. Anxiety and depression. 5. History of left groin abscess. 6. Cholecystectomy. 7. Right ankle cadaver tendon replacement. 8. Polycystic ovarian syndrome. 9. Human papilloma virus. 10. Genital herpes/warts. 11. [place] teeth extraction. ALLERGIES: CORTICOSTEROIDS, PENICILLINS AND HYDROCODONE. MEDICINES PRIOR ADMISSION: Amitriptyline 10 mg nightly, citalopram 20 mg, Nexium, fenofibrate 134 mg, metoclopramide 10 mg 3 times per day as needed, Zofran 4 mg every 6 hours as needed, potassium chloride 20 mEq twice per day and Compazine every 6 hours as needed. FAMILY HISTORY: Her mother had pancreatic cancer. Hypertension runs in the family. SOCIAL HISTORY: She is single and lives alone. She smokes less than a pack of cigarettes per day. She drinks alcohol 2-3 times a week by her report. She rarely smokes marijuana. REVIEW OF SYSTEMS: She does not have headache. There has been no change of vision or hearing. She has been able to chew and swallow. She does not have shortness of breath, chest or abdominal pain. She has chronic fatigue. She has poor appetite, nausea, vomiting, and diarrhea. She has not had fever or rash. No genitourinary complaint. Does not complain of excessive bruising, bleeding or swelling. She has had generalized weakness where she has not been able to support her weight. She reports over the last month, she has had difficulty with her ankles with her feet inverting. She does not have swelling. PHYSICAL EXAMINATION: VITAL SIGNS: The blood pressure was 114/83, pulse 106, respirations 18, temperature 98.4 degrees Fahrenheit. Oximetry was 97% on room air. Her weight was 70 kilograms, height 66 inches with a calculated body mass index of 24.9. GENERAL: She was sleepy and difficult to arouse. When I examined her, she was extremely lethargic. I had to keep reminding her to keep her eyes open. Attention and concentration seem to wane as she would start to fall back asleep, although denied doing so. She was oriented. NEUROLOGIC: Examination of the cranial nerves revealed visual phelps were full to confrontation. Extraocular movements were intact. The eyes were conjugate. Pursuit movements were smooth and saccadic eye movements were without dysmetria. Pupils were 3 mm and reacted. Funduscopic exam did not reveal papilledema, exudate or hemorrhage. Facial sensation was intact. The muscles of mastication and facial expression were symmetric. Hearing was intact to finger rub. The palate arched symmetrically and the tongue was midline with full motion. Sternocleidomastoid and trapezius were powerful. Muscle bulk and tone was normal. There was no definite drift. Power was generally diminished, although she could exert some good burst strength with finger abduction, elbow flexion and extension, arm abduction, hip flexion, knee flexion and plantarflexion. She had a tendency to invert her feet. Overall, power was weak, but I did not find focality to either side. Reflexes were generally diminished throughout with tricep reflex being present, but very difficult to elicit biceps, knee jerk or ankle jerks. Toes were not upgoing. Coordination testing with [id number], [id number], fine motor and rapid alternating movements fairly well performed. Sensory exam was intact to pain, light touch, proprioception, graphesthesia, cold thermal and vibration. There was no extinction to double simultaneous stimulation. Gait was not testable. She claimed there was tingling of the hands and upper arms as well as the feet. Auscultation of the carotid arteries did not reveal a bruit. HEART: Rhythm is regular, without a murmur. EXTREMITIES: Peripheral pulses were symmetric. There was no edema or cyanosis. LABORATORY RESULTS: CBC was performed, 06/07/2020, revealing an elevated white blood cell count at 20.9. Hemoglobin was elevated at 15.7 and hematocrit 47.7, and platelet count was normal. Chemistries were performed, 06/08/2020. This revealed a normal sodium, but potassium was low at 3, chloride and CO2 were normal. BUN and creatinine were not elevated and GFR calculated at 94.7. Glucose was normal. Calcium was normal. Total bilirubin was elevated to 1.6 and SGOT was 59 and SGPT was 32. Alkaline phosphatase was normal. Total protein was normal. Albumin was low at 3. B12 was normal at 571. TSH was measured, 03/28/2020, and was normal at 2.271. An a.m. cortisol was measured, 03/21/2020, and was normal at 15.2. Renin and aldosterone had been measured and were in the normal range. Lipase was normal. CRP was measured, 05/25/2020, and was less than 0.5. CPK was measured, 05/06/2020, and was normal at 71. Toxicology was positive for cannabinoids, 06/08/2020. IRIS, tissue transglutaminase IgA and IgG, antigliadin IgA and IgG were all negative, 05/25/2020. Acetylcholine receptor antibody binding and modulating were negative on 05/25/2020. Coronavirus was not detected, 05/25/2020. Urinalysis was performed, 06/08/2020, revealed 15 ketones, small bilirubin, 1 urobilinogen, trace leukocyte esterase, rare red blood cells, 1-4 white blood cells, moderate squamous epithelial cells, few bacteria and moderate hyaline casts. There was occasional granular casts. HCG in the urine was negative. PT/INR was measured at 1.1 on 06/08/2020. DIAGNOSTIC RESULTS: CT scan of the abdomen and pelvis was performed, 06/07/2020, revealing severe hepatic steatosis. Otherwise, unremarkable exam. MR of the right ankle was performed, 10/19/2019. This revealed marrow abnormality at the distal tibia compatible with osteonecrosis with mild subchondral bone fracture and collapse. IMPRESSION: The patient is a 35-year-old woman, who has been experiencing nausea, vomiting and diarrhea for a year and progressive fatigue for at least 6 months. She has had logical investigation, which has not been revealing. She does not apparently have evidence for myasthenia gravis by traditional screening methods. Thus far, she does not have evidence of an autoimmune disease. She does not appear to have cortisol deficiency. Her exam is nonfocal and does not suggest a lesion in the brain. She was seen by Neurology in April with recommendations made, but I do not believe she has ever had an EMG and nerve conduction studies. RECOMMENDATIONS: I would like to arrange for further blood work looking for HIV to make sure this is not entering into the picture. We will also check for Lyme, Justa-[place] virus, sedimentation rate, repeat CRP and check for lead level. I would suggest discontinuing the amitriptyline because it can be sedating. As an outpatient, I would consider an EMG to evaluate for evidence of neuropathy. I would also suggest a polysomnogram followed by a multiple sleep latency test. I appreciate being involved in her care. ANDREINA CATHERINE MD DR: FADI/rachel JOB#: [id number] / [id number] HANNAH Olvera MD, ALISA BANGURA MD, SANDRA APRN
[2020-06-09 01:30] VITALS: BP 131/90
[2020-06-09] MEDS: ONDANSETRON PF 4 MG/2 ML VIAL. IV PRN ×4 (05:28→23:13)
[2020-06-09 06:00] VITALS: BP 138/89
[2020-06-09] MEDS: PIPERACILLIN/TAZOBACTAM 3.375 GM in IV NORMAL SALINE 50ML 50 ML IV SCH ×4 (08:30→23:52)
[2020-06-09 08:31] LABS: BASO % 0 % (0-3); EOS % 0 % (0-3); HEMATOCRIT 35.8 % (36.0-47.0); HEMOGLOBIN 12.4 g/dL (12.0-15.5); LYMPH # 2.1 x10^3/uL (1.0-4.8); LYMPH % 20 % (24-48); MEAN CORPUSCULAR HEMOGLOBIN 34 pg (25-35); MEAN CORPUSCULAR HGB CONC 35 g/dL (31-37); MEAN CORPUSCULAR VOLUME 97 fL (79-100); MONO # 0.6 x10^3/uL (0.0-1.1); MONO % 6 % (0-9); NEUT # 8.1 x10^3/uL (1.8-7.7); NEUT % 75 % (31-73); PLATELET COUNT 180 x10^3/uL (140-400); RED BLOOD COUNT 3.69 x10^6/uL (3.50-5.40); RED CELL DISTRIBUTION WIDTH 16.5 % (11.5-14.5); WHITE BLOOD COUNT 10.9 x10^3/uL (4.0-11.0)
[2020-06-09] MEDS: PANTOPRAZOLE IV PUSH 40 MG VIAL. IVP SCH (08:40)
[2020-06-09] MEDS: POTASSIUM CL 40MEQ IN 0.9%NACL 1,000 ML IV SCH ×2 (08:41→23:50)
[2020-06-09 08:46] LABS: ALBUMIN 2.9 g/dL (3.4-5.0); ALBUMIN/GLOBULIN RATIO 0.8 (1.0-1.7); CALCIUM 9.1 mg/dL (8.5-10.1); CREATININE 0.7 mg/dL (0.6-1.0); GFR 94.7; POTASSIUM 3.5 mmol/L (3.5-5.1); TOTAL BILIRUBIN 1.6 mg/dL (0.2-1.0); TOTAL PROTEIN 6.5 g/dL (6.4-8.2)
[2020-06-09] MEDS: KETOROLAC 30 MG/ML VIAL. IV PRN ×2 (10:13→16:15)
--- NOTE | 2020-06-09 11:01 | PDOC ---
[employer] PROGRESS NOTE Date of Service DOS: DATE: 06/09/20 TIME: 10:56 Chief Complaint Chief Complaint Nausea Vomiting Diarrhea Anxiety Depression GERD Hyperlipidemia Hypertension Cholecystectomy Tobacco abuse Hypomag Hypokalemia. History of Present Illness History of Present Illness 06/09/2020 Pt seen and examined LIONEL RN LIONEL case management Friend bedside Vitals/I&O Vitals/I&O: Vital Signs Date Time Temp Pulse Resp B/P (MAP) Pulse Ox O2 Delivery O2 Flow Rate FiO2 06/09/20 06:00 98.1 87 17 138/89 (105) 95 Room Air 98.1 I & O 06/08/20 06/08/20 06/09/20 15:00 23:00 07:00 Intake Total 650 ml 1400 ml Output Total 300 ml 300 ml Balance 350 ml 1100 ml Physical Exam General: Alert, Oriented X3, Cooperative, No acute distress Heart: Regular rate, Normal S1, Normal S2, No murmurs Lungs: Clear Abdomen: Normal bowel sounds, No tenderness, No masses Extremities: No clubbing, No cyanosis, No edema, No tenderness/swelling Skin: No rashes, No breakdown, No significant lesion Labs Labs: Laboratory Tests Test 06/09/20 08:04 06/09/20 08:10 White Blood Count 10.9 x10^3/uL (4.0-11.0) Red Blood Count 3.69 x10^6/uL (3.50-5.40) Hemoglobin 12.4 g/dL (12.0-15.5) Hematocrit 35.8 % (36.0-47.0) Mean Corpuscular Volume 97 fL (79-100) Mean Corpuscular Hemoglobin 34 pg (25-35) Mean Corpuscular Hemoglobin Concent 35 g/dL (31-37) Red Cell Distribution Width 16.5 % (11.5-14.5) Platelet Count 180 x10^3/uL (140-400) Neutrophils (%) (Auto) 75 % (31-73) Lymphocytes (%) (Auto) 20 % (24-48) Monocytes (%) (Auto) 6 % (0-9) Eosinophils (%) (Auto) 0 % (0-3) Basophils (%) (Auto) 0 % (0-3) Neutrophils # (Auto) 8.1 x10^3/uL (1.8-7.7) Lymphocytes # (Auto) 2.1 x10^3/uL (1.0-4.8) Monocytes # (Auto) 0.6 x10^3/uL (0.0-1.1) Eosinophils # (Auto) 0.0 x10^3/uL (0.0-0.7) Basophils # (Auto) 0.0 x10^3/uL (0.0-0.2) Sodium Level 137 mmol/L (136-145) Potassium Level 3.5 mmol/L (3.5-5.1) Chloride Level 100 mmol/L (98-107) Carbon Dioxide Level 27 mmol/L (21-32) Anion Gap 10 (6-14) Blood Urea Nitrogen 8 mg/dL (7-20) Creatinine 0.7 mg/dL (0.6-1.0) Estimated GFR (Cockcroft-Gault) 94.7 BUN/Creatinine Ratio 11 (6-20) Glucose Level 66 mg/dL (70-99) Calcium Level 9.1 mg/dL (8.5-10.1) Total Bilirubin 1.6 mg/dL (0.2-1.0) Aspartate Amino Transf (AST/SGOT) 68 U/L (15-37) Alanine Aminotransferase (ALT/SGPT) 29 U/L (14-59) Alkaline Phosphatase 72 U/L (46-116) Total Protein 6.5 g/dL (6.4-8.2) Albumin 2.9 g/dL (3.4-5.0) Albumin/Globulin Ratio 0.8 (1.0-1.7) HIV (1&2) Antibody Screen Nonreactive (Nonreactive) C-Reactive Protein, Quantitative 86.9 mg/L (0-3.3) Review of Systems Review of Systems: No digital clubbing, cyanosis, or SOB noted. Assessment and Plan Assessmemt and Plan Problems Medical Problems: (1) Dehydration Status: Acute (2) Intractable nausea and vomiting Status: Acute Nausea Vomiting Diarrhea Anxiety Depression GERD Hyperlipidemia Hypertension Cholecystectomy Tobacco abuse Hypomag Hypokalemia. Plan: Continue Zosyn Toradol 30 i.v. q6hrs Await GES PTOT Work up in progress Full code Appreciate neurologist input Comment Review of Relevant I have reviewed the following items josué (where applicable) has been applied. Medications: Current Medications Medications (Trade) Dose Ordered Sig/Kwaku Route PRN Reason Start Time Stop Time Status Last Admin Dose Admin Piperacillin Sod/ Tazobactam Sod 3.375 gm/Sodium Chloride 50 ml @ 100 mls/hr Q6HRS IV 06/08/20 11:00 06/09/20 08:30 Potassium Chloride/Sodium Chloride 1,000 ml @ 125 mls/hr Q8H IV 06/08/20 15:00 06/09/20 08:41 Pantoprazole Sodium (PROTONIX VIAL for IV PUSH) 40 mg DAILYAC IVP 06/09/20 07:30 06/09/20 08:40 Ketorolac Tromethamine (Toradol 30mg Vial) 30 mg PRN Q6HRS PRN IV PAIN 06/09/20 10:15 06/14/20 10:14 06/09/20 10:13 Justifications for Admission Other Justification NAYANA NY III DO Jun 09, 2020 11:01
[2020-06-09] MEDS: PROCHLORPERAZINE 10 MG/2 ML VIAL. IV PRN ×2 (11:37→19:54)
[2020-06-09 11:40] VITALS: BP 132/83
--- NOTE | 2020-06-09 13:13 | PDOC ---
Date of Service: DATE: 06/09/20 TIME: 13:10 Subjective: Subjective: Biggest concern is weakness. Still w/ nausea - trying to make it through GES w/o vomiting. Objective: Objective: Neuro note: IMPRESSION: The patient is a 35-year-old woman, who has been experiencing nausea, vomiting and diarrhea for a year and progressive fatigue for at least 6 months. She has had logical investigation, which has not been revealing. She does not apparently have evidence for myasthenia gravis by traditional screening methods. Thus far, she does not have evidence of an autoimmune disease. She does not appear to have cortisol deficiency. Her exam is nonfocal and does not suggest a lesion in the brain. She was seen by Neurology in April with recommendations made, but I do not believe she has ever had an EMG and nerve conduction studies. RECOMMENDATIONS: I would like to arrange for further blood work looking for HIV to make sure this is not entering into the picture. We will also check for Lyme, Justa-[place] virus, sedimentation rate, repeat CRP and check for lead level. I would suggest discontinuing the amitriptyline because it can be sedating. As an outpatient, I would consider an EMG to evaluate for evidence of neuropathy. I would also suggest a polysomnogram followed by a multiple sleep latency test. I appreciate being involved in her care. Vital Signs: Vital Signs Date Time Temp Pulse Resp B/P (MAP) Pulse Ox O2 Delivery O2 Flow Rate FiO2 06/09/20 11:40 98.6 85 20 132/83 (99) 98 Room Air 98.6 Labs: Laboratory Tests Test 06/09/20 08:04 06/09/20 08:10 White Blood Count 10.9 x10^3/uL Red Blood Count 3.69 x10^6/uL Hemoglobin 12.4 g/dL Hematocrit 35.8 % Mean Corpuscular Volume 97 fL Mean Corpuscular Hemoglobin 34 pg Mean Corpuscular Hemoglobin Concent 35 g/dL Red Cell Distribution Width 16.5 % Platelet Count 180 x10^3/uL Neutrophils (%) (Auto) 75 % Lymphocytes (%) (Auto) 20 % Monocytes (%) (Auto) 6 % Eosinophils (%) (Auto) 0 % Basophils (%) (Auto) 0 % Neutrophils # (Auto) 8.1 x10^3/uL Lymphocytes # (Auto) 2.1 x10^3/uL Monocytes # (Auto) 0.6 x10^3/uL Eosinophils # (Auto) 0.0 x10^3/uL Basophils # (Auto) 0.0 x10^3/uL Sodium Level 137 mmol/L Potassium Level 3.5 mmol/L Chloride Level 100 mmol/L Carbon Dioxide Level 27 mmol/L Anion Gap 10 Blood Urea Nitrogen 8 mg/dL Creatinine 0.7 mg/dL Estimated GFR (Cockcroft-Gault) 94.7 BUN/Creatinine Ratio 11 Glucose Level 66 mg/dL Calcium Level 9.1 mg/dL Total Bilirubin 1.6 mg/dL Aspartate Amino Transf (AST/SGOT) 68 U/L Alanine Aminotransferase (ALT/SGPT) 29 U/L Alkaline Phosphatase 72 U/L Total Protein 6.5 g/dL Albumin 2.9 g/dL Albumin/Globulin Ratio 0.8 HIV (1&2) Antibody Screen Nonreactive C-Reactive Protein, Quantitative 86.9 mg/L URINE CULTURE Final Final No Growth on 06/09/20 at 0938 PE: GEN: NAD - on edge of bed - demonstrate how she struggles to stand w/ use of walker NEURO/PSYCH: A & O 3 A/P: Recurrent n/v, diarrhea, weight loss, LE weakness Elevated CRP GERD, s/p timmy Severe hepatic steatosis, elevated bili and AST +cannabinoids -- Await GES. Check stool studies. Continue per neuro. Justicifation of Admission Dx: Justifications for Admission: Justification of Admission Dx: Yes CHF: Sev. Electrolyte Abnormal ARUN MILNER Jun 09, 2020 13:13
--- NOTE | 2020-06-09 14:49 | RAD ---
Gastric emptying study INDICATION: Recurrent nausea vomiting and weight loss COMPARISON: Abdomen pelvis CT 06/08/2020 TECHNIQUE: Following ingestion of a meal of eggs, toast and 4 ounces of water labeled with 2 mCi of technetium labeled sulfur colloid radiopharmaceutical, immediate anterior and posterior imaging of the stomach as well as hourly anterior and posterior imaging was performed over 4 hours. Percent gastric retention was calculated at the 1 through 4 hour intervals. FINDINGS: Normal immediate uptake in the stomach. Gastric retention at one hour is 55 percent (normal 30-90 percent retention) Gastric retention at 2 hours is 55 percent (normal less than or equal to 60 percent retention) Gastric retention at 3 hours is 45 percent (normal less than 25 percent retention) Gastric retention at 4 hours is 22 percent (normal less than or equal to 10 percent retention) IMPRESSION: Abnormally increased gastric retention after 2 hours is consistent with evidence of gastroparesis. Electronically signed by: Zachary Ashley MD (06/09/2020 2:47 PM) [id number]
[2020-06-09] MEDS: METOCLOPRAMIDE HCL 10 MG/2 ML VIAL. IVP SCH ×2 (16:14→20:20)
[2020-06-09] MEDS ORDERED: NICOTINE 21MG PATCH. TD SCH (17:30)
[2020-06-09] MEDS: LACTOBACILLUS RHAMNOSUS GG 1 CAPSULE. PO SCH (20:21)
--- NOTE | 2020-06-09 20:23 | PDOC1 ---
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 She is seen for initial psychiatric assessment. Upon interview she appears cooperative and interactive and pleasant. States, she has history of depression for the past few years which has been reasonably responsive to citalopram and amitriptyline. States, she takes amitriptyline for appetite boost and it worked. Additionally citalopram is helping with depression. 3 months ago, she started to struggling with muscle weakness, trouble walking, nausea and vomiting. States, used to be very active and working for 12-hour shifts. However, for the last 1 month she has not been working which is frustrating for her. States, her depression is reasonably controlled rated as 10/1009 is worse. She is anxious and frustrated with her new emerging medical problems, which are so far not diagnosed. Aside from that, she denies suicidal or homicidal thoughts. Denies auditory or visual hallucinations. No history of lefty or hypomania. Past Psychiatric History: Previously diagnosed with depression and anxiety. She has been taking citalopram and amitriptyline. No previous history of psychiatric hospital admission. Denies history of suicidality. Or suicidal attempt Past Medical History: Please see medical chart for details. 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 She has good social support of her significant other and family. Alcohol use is in social situations. She smokes marijuana sometimes. Current Medications: Current Medications Current Medications Medications (Trade) Dose Ordered Sig/Kwaku Start Time Stop Time Status Last Admin Dose Admin Erythromycin (E-Mycin) 250 mg BID 06/09/20 21:00 Haloperidol Lactate (Haldol Inj) 5 mg 1X ONCE 06/07/20 21:00 06/07/20 21:01 DC 06/07/20 20:54 5 MG Ketorolac Tromethamine (Toradol 30mg Vial) 30 mg PRN Q6HRS PRN 06/09/20 10:15 06/14/20 10:14 06/09/20 16:15 30 MG Lactobacillus Rhamnosus (Culturelle) 1 cap BID 06/09/20 21:00 Lorazepam (Ativan Inj) 1 mg 1X ONCE 06/07/20 21:00 06/07/20 21:01 DC 06/07/20 20:54 1 MG Magnesium Sulfate/ Dextrose 100 ml @ 100 mls/hr 1X ONCE 06/08/20 08:00 06/08/20 08:59 DC 06/08/20 10:16 100 MLS/HR Metoclopramide HCl (Reglan Vial) 5 mg QIDACHS 06/09/20 16:30 06/09/20 16:14 5 MG Nicotine (Nicoderm Cq 21mg) 1 patch DAILY 06/09/20 17:30 Ondansetron HCl (Zofran) 4 mg PRN Q4HRS PRN 06/08/20 07:15 06/09/20 15:17 4 MG Pantoprazole Sodium (PROTONIX VIAL for IV PUSH) 40 mg DAILYAC 06/09/20 07:30 06/09/20 08:40 40 MG Piperacillin Sod/ Tazobactam Sod (Zosyn Per Pharmacy) 1 each PRN DAILY PRN 06/08/20 10:15 Piperacillin Sod/ Tazobactam Sod 3.375 gm/Sodium Chloride 50 ml @ 100 mls/hr Q6HRS 06/08/20 11:00 06/09/20 15:16 100 MLS/HR Potassium Bicarbonate (Potassium Effervescent Tablet) 20 meq 1X ONCE 06/08/20 08:00 06/08/20 08:01 DC 06/08/20 10:17 20 MEQ Potassium Chloride/Sodium Chloride 1,000 ml @ 125 mls/hr Q8H 06/08/20 15:00 06/09/20 08:41 125 MLS/HR Prochlorperazine Edisylate (Compazine) 10 mg PRN Q6HRS PRN 06/09/20 11:30 06/09/20 19:54 10 MG Sodium Chloride 1,000 ml @ 125 mls/hr CONT PRN 06/08/20 14:45 UNV Allergies: Allergies: Coded Allergies: Corticosteroids (Glucocorticoids) (Verified Allergy, Severe, facial swelling, 05/25/20) Penicillins (Verified Allergy, Intermediate, hives, 05/25/20) I S O L A T I O N *CONTACT* (Verified Allergy, Unknown, 06/03/19) mrsa hydrocodone (Verified Adverse Reaction, Mild, Nausea, 05/25/20) Mental Status Examination: Mental Status Examination female appears her stated age Cooperative and interactive Alert and oriented Thought processes goal-directed Denies suicidal or homicidal thoughts. Denies auditory or visual hallucinations No abnormal perception noted Mood is anxious Affect is euthymic Insight is good Judgment is good Impulse control is good Recent and remote memory intact ROS: 14 point review of system is otherwise negative except for stated above. Physical Exam: Refer to Physician's note. 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 MSK: No EPS, TDK, or abnormal involuntary movements Vitals: Vitals Vital Signs Date Time Temp Pulse Resp B/P (MAP) Pulse Ox O2 Delivery O2 Flow Rate FiO2 06/09/20 11:40 98.6 85 20 132/83 (99) 98 Room Air 98.6 Labs: Labs Laboratory Tests Test 06/07/20 20:45 06/08/20 01:43 06/08/20 07:58 06/09/20 08:04 White Blood Count 20.9 x10^3/uL (4.0-11.0) 10.9 x10^3/uL (4.0-11.0) Red Blood Count 4.85 x10^6/uL (3.50-5.40) 3.69 x10^6/uL (3.50-5.40) Hemoglobin 15.7 g/dL (12.0-15.5) 12.4 g/dL (12.0-15.5) Hematocrit 47.7 % (36.0-47.0) 35.8 % (36.0-47.0) Mean Corpuscular Volume 98 fL (79-100) 97 fL (79-100) Mean Corpuscular Hemoglobin 32 pg (25-35) 34 pg (25-35) Mean Corpuscular Hemoglobin Concent 33 g/dL (31-37) 35 g/dL (31-37) Red Cell Distribution Width 16.7 % (11.5-14.5) 16.5 % (11.5-14.5) Platelet Count 308 x10^3/uL (140-400) 180 x10^3/uL (140-400) Neutrophils (%) (Auto) 89 % (31-73) 75 % (31-73) Lymphocytes (%) (Auto) 5 % (24-48) 20 % (24-48) Monocytes (%) (Auto) 6 % (0-9) 6 % (0-9) Eosinophils (%) (Auto) 0 % (0-3) 0 % (0-3) Basophils (%) (Auto) 0 % (0-3) 0 % (0-3) Neutrophils # (Auto) 18.5 x10^3/uL (1.8-7.7) 8.1 x10^3/uL (1.8-7.7) Lymphocytes # (Auto) 1.0 x10^3/uL (1.0-4.8) 2.1 x10^3/uL (1.0-4.8) Monocytes # (Auto) 1.3 x10^3/uL (0.0-1.1) 0.6 x10^3/uL (0.0-1.1) Eosinophils # (Auto) 0.0 x10^3/uL (0.0-0.7) 0.0 x10^3/uL (0.0-0.7) Basophils # (Auto) 0.1 x10^3/uL (0.0-0.2) 0.0 x10^3/uL (0.0-0.2) Segmented Neutrophils % 87 % (35-66) Band Neutrophils % 2 % (0-9) Lymphocytes % 6 % (24-48) Monocytes % 5 % (0-10) Platelet Estimate Adequate (ADEQUATE) Maternal Serum HCG Beta Subunit < 1 mIU/mL (0-5) Sodium Level 136 mmol/L (136-145) 136 mmol/L (136-145) 137 mmol/L (136-145) Potassium Level 3.5 mmol/L (3.5-5.1) 3.0 mmol/L (3.5-5.1) 3.5 mmol/L (3.5-5.1) Chloride Level 89 mmol/L (98-107) 99 mmol/L (98-107) 100 mmol/L (98-107) Carbon Dioxide Level 12 mmol/L (21-32) 27 mmol/L (21-32) 27 mmol/L (21-32) Anion Gap 35 (6-14) 10 (6-14) 10 (6-14) Blood Urea Nitrogen 3 mg/dL (7-20) 7 mg/dL (7-20) 8 mg/dL (7-20) Creatinine 1.4 mg/dL (0.6-1.0) 0.7 mg/dL (0.6-1.0) 0.7 mg/dL (0.6-1.0) Estimated GFR (Cockcroft-Gault) 42.5 94.7 94.7 BUN/Creatinine Ratio 2 (6-20) 10 (6-20) 11 (6-20) Glucose Level 158 mg/dL (70-99) 97 mg/dL (70-99) 66 mg/dL (70-99) Calcium Level 11.0 mg/dL (8.5-10.1) 9.0 mg/dL (8.5-10.1) 9.1 mg/dL (8.5-10.1) Magnesium Level 1.8 mg/dL (1.8-2.4) 1.7 mg/dL (1.8-2.4) Total Bilirubin 2.4 mg/dL (0.2-1.0) 1.6 mg/dL (0.2-1.0) 1.6 mg/dL (0.2-1.0) Aspartate Amino Transf (AST/SGOT) 99 U/L (15-37) 59 U/L (15-37) 68 U/L (15-37) Alanine Aminotransferase (ALT/SGPT) 45 U/L (14-59) 32 U/L (14-59) 29 U/L (14-59) Alkaline Phosphatase 104 U/L (46-116) 62 U/L (46-116) 72 U/L (46-116) Total Protein 9.2 g/dL (6.4-8.2) 6.4 g/dL (6.4-8.2) 6.5 g/dL (6.4-8.2) Albumin 4.2 g/dL (3.4-5.0) 3.0 g/dL (3.4-5.0) 2.9 g/dL (3.4-5.0) Albumin/Globulin Ratio 0.8 (1.0-1.7) 0.9 (1.0-1.7) 0.8 (1.0-1.7) Lipase 153 U/L (73-393) Urine Collection Type U cath Urine Color Yellow Urine Clarity Clear Urine pH 5.5 (<5.0-8.0) Urine Specific [place] 1.020 (1.000-1.030) Urine Protein 30 mg/dL (NEG-TRACE) Urine Glucose (UA) Negative mg/dL (NEG) Urine Ketones (Stick) 15 mg/dL (NEG) Urine Blood Negative (NEG) Urine Nitrite Negative (NEG) Urine Bilirubin Small (NEG) Urine Urobilinogen Dipstick 1.0 mg/dL (0.2 mg/dL) Urine Leukocyte Esterase Trace (NEG) Urine RBC Rare /HPF (0-2) Urine WBC 1-4 /HPF (0-4) Urine Squamous Epithelial Cells Mod /LPF Urine Amorphous Sediment Present /HPF Urine Bacteria Few /HPF (0-FEW) Urine Hyaline Casts Moderate /HPF Urine Granular Casts Occasional /HPF Urine Mucus Mod /LPF Urine Opiates Screen Neg (NEG) Urine Methadone Screen Neg (NEG) Urine Barbiturates Neg (NEG) Urine Phencyclidine Screen Neg (NEG) Urine Amphetamine/Methamphetamine Neg (NEG) Urine Benzodiazepines Screen Neg (NEG) Urine Cocaine Screen Neg (NEG) Urine Cannabinoids Screen Pos (NEG) Urine Ethyl Alcohol Neg (NEG) Prothrombin Time 13.6 SEC (11.7-14.0) Prothromb Time International Ratio 1.1 (0.8-1.1) Phosphorus Level 2.4 mg/dL (2.6-4.7) Vitamin B12 Level 571 pg/mL (247-911) HIV (1&2) Antibody Screen Nonreactive (Nonreactive) Test 06/09/20 08:10 C-Reactive Protein, Quantitative 86.9 mg/L (0-3.3) Laboratory Tests Test 06/09/20 08:04 06/09/20 08:10 White Blood Count 10.9 x10^3/uL (4.0-11.0) Red Blood Count 3.69 x10^6/uL (3.50-5.40) Hemoglobin 12.4 g/dL (12.0-15.5) Hematocrit 35.8 % (36.0-47.0) Mean Corpuscular Volume 97 fL (79-100) Mean Corpuscular Hemoglobin 34 pg (25-35) Mean Corpuscular Hemoglobin Concent 35 g/dL (31-37) Red Cell Distribution Width 16.5 % (11.5-14.5) Platelet Count 180 x10^3/uL (140-400) Neutrophils (%) (Auto) 75 % (31-73) Lymphocytes (%) (Auto) 20 % (24-48) Monocytes (%) (Auto) 6 % (0-9) Eosinophils (%) (Auto) 0 % (0-3) Basophils (%) (Auto) 0 % (0-3) Neutrophils # (Auto) 8.1 x10^3/uL (1.8-7.7) Lymphocytes # (Auto) 2.1 x10^3/uL (1.0-4.8) Monocytes # (Auto) 0.6 x10^3/uL (0.0-1.1) Eosinophils # (Auto) 0.0 x10^3/uL (0.0-0.7) Basophils # (Auto) 0.0 x10^3/uL (0.0-0.2) Sodium Level 137 mmol/L (136-145) Potassium Level 3.5 mmol/L (3.5-5.1) Chloride Level 100 mmol/L (98-107) Carbon Dioxide Level 27 mmol/L (21-32) Anion Gap 10 (6-14) Blood Urea Nitrogen 8 mg/dL (7-20) Creatinine 0.7 mg/dL (0.6-1.0) Estimated GFR (Cockcroft-Gault) 94.7 BUN/Creatinine Ratio 11 (6-20) Glucose Level 66 mg/dL (70-99) Calcium Level 9.1 mg/dL (8.5-10.1) Total Bilirubin 1.6 mg/dL (0.2-1.0) Aspartate Amino Transf (AST/SGOT) 68 U/L (15-37) Alanine Aminotransferase (ALT/SGPT) 29 U/L (14-59) Alkaline Phosphatase 72 U/L (46-116) Total Protein 6.5 g/dL (6.4-8.2) Albumin 2.9 g/dL (3.4-5.0) Albumin/Globulin Ratio 0.8 (1.0-1.7) HIV (1&2) Antibody Screen Nonreactive (Nonreactive) C-Reactive Protein, Quantitative 86.9 mg/L (0-3.3) Diagnosis: Diagnosis: Major depressive disorder, recurrent, mild to moderate Generalized anxiety disorder 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 She has been struggling for a month now. She is in agreement with Ativan which would help with anxiety as well as with nausea and vomiting. Plan: Ativan 1 mg twice a day for anxiety as needed. Risk, benefits, alternatives of the treatment are discussed. She is in agreement with plan and voiced understanding. Psychoeducation provided. Supportive psychotherapy provided. Continue citalopram and amitriptyline as is ROSSY BAINS MD Jun 09, 2020 20:23
[2020-06-09] MEDS ORDERED: LORazepam 0.5 MG TABLET PO PRN (20:30)
[2020-06-09 20:42] VITALS: BP 129/93
[2020-06-09] MEDS: ERYTHROMYCIN BASE 250 MG TABLET PO SCH (21:15)
[2020-06-09] MEDS: DICLOFENAC SODIUM 1% TOPICAL GEL 100GM TUBE. TP SCH (21:16)
[2020-06-09 23:24] VITALS: BP 137/96
[2020-06-10] MEDS: KETOROLAC 30 MG/ML VIAL. IV PRN (03:37)
[2020-06-10 04:20] VITALS: BP 130/96
[2020-06-10] MEDS: PIPERACILLIN/TAZOBACTAM 3.375 GM in IV NORMAL SALINE 50ML 50 ML IV SCH (06:17)
[2020-06-10 06:42] LABS: BASO % 0 % (0-3); EOS % 0 % (0-3); HEMATOCRIT 34.1 % (36.0-47.0); HEMOGLOBIN 11.6 g/dL (12.0-15.5); LYMPH # 2.5 x10^3/uL (1.0-4.8); LYMPH % 25 % (24-48); MEAN CORPUSCULAR HEMOGLOBIN 33 pg (25-35); MEAN CORPUSCULAR HGB CONC 34 g/dL (31-37); MEAN CORPUSCULAR VOLUME 97 fL (79-100); MONO # 0.7 x10^3/uL (0.0-1.1); MONO % 7 % (0-9); NEUT # 6.9 x10^3/uL (1.8-7.7); NEUT % 68 % (31-73); PLATELET COUNT 175 x10^3/uL (140-400); RED BLOOD COUNT 3.51 x10^6/uL (3.50-5.40); RED CELL DISTRIBUTION WIDTH 16.5 % (11.5-14.5); WHITE BLOOD COUNT 10.1 x10^3/uL (4.0-11.0)
--- NOTE | 2020-06-10 09:17 | PDOC ---
Date of Service: DATE: 06/10/20 TIME: 09:14 Subjective: Subjective: Wants to go home. Hasn't vomited. Going to try yogurt for breakfast. Objective: Vital Signs: Vital Signs Date Time Temp Pulse Resp B/P (MAP) Pulse Ox O2 Delivery O2 Flow Rate FiO2 06/10/20 04:20 98.6 86 18 130/96 (107) 98.6 06/09/20 23:24 95 06/09/20 11:40 Room Air Labs: Laboratory Tests Test 06/10/20 06:10 White Blood Count 10.1 x10^3/uL Red Blood Count 3.51 x10^6/uL Hemoglobin 11.6 g/dL Hematocrit 34.1 % Mean Corpuscular Volume 97 fL Mean Corpuscular Hemoglobin 33 pg Mean Corpuscular Hemoglobin Concent 34 g/dL Red Cell Distribution Width 16.5 % Platelet Count 175 x10^3/uL Neutrophils (%) (Auto) 68 % Lymphocytes (%) (Auto) 25 % Monocytes (%) (Auto) 7 % Eosinophils (%) (Auto) 0 % Basophils (%) (Auto) 0 % Neutrophils # (Auto) 6.9 x10^3/uL Lymphocytes # (Auto) 2.5 x10^3/uL Monocytes # (Auto) 0.7 x10^3/uL Eosinophils # (Auto) 0.0 x10^3/uL Basophils # (Auto) 0.0 x10^3/uL Imaging: GES 06/09 FINDINGS: Normal immediate uptake in the stomach. Gastric retention at one hour is 55 percent (normal 30-90 percent retention) Gastric retention at 2 hours is 55 percent (normal less than or equal to 60 percent retention) Gastric retention at 3 hours is 45 percent (normal less than 25 percent retention) Gastric retention at 4 hours is 22 percent (normal less than or equal to 10 percent retention) IMPRESSION: Abnormally increased gastric retention after 2 hours is consistent with evidence of gastroparesis. PE: GEN: NAD LUNGS: CTAB HEART: RRR ABD: S/ND/NT NEURO/PSYCH: A & O 3 A/P: Delayed gastric emptying w/ recurrent n/v and weight loss Extremity weakness/numbness - neuro workup ongoing GERD, s/p timmy Severe hepatic steatosis, elevated bili and AST +cannabinoids -- If continues to tolerate diet (would observe through lunch today), okay to DC per GI. Neither e-mycin or Reglan ideal for long-term management - d/w Dr. Xavier, will send home w/ Rx for e-mycin to start. Continue PPI. If unable to tolerate diet/continued weight loss, may need to discuss J tube w/ surgery. Follow-up w/ neuro as planned. Justicifation of Admission Dx: Justifications for Admission: Justification of Admission Dx: Yes CHF: Sev. Electrolyte Abnormal ARUN MILNER Jun 10, 2020 09:17
[2020-06-10] MEDS: PANTOPRAZOLE IV PUSH 40 MG VIAL. IVP SCH (09:32)
[2020-06-10] MEDS: METOCLOPRAMIDE HCL 10 MG/2 ML VIAL. IVP SCH (09:32)
[2020-06-10] MEDS: LACTOBACILLUS RHAMNOSUS GG 1 CAPSULE. PO SCH (09:33)
[2020-06-10] MEDS: ERYTHROMYCIN BASE 250 MG TABLET PO SCH (09:34)
[2020-06-10] MEDS: DICLOFENAC SODIUM 1% TOPICAL GEL 100GM TUBE. TP SCH (09:35)
[2020-06-10] MEDS ORDERED: METOCLOPRAMIDE HCL 10 MG/2 ML VIAL. IVP PRN (09:45)
--- NOTE | 2020-06-10 11:28 | PDOC ---
[facility] [facility] PROGRESS NOTE Date of Service DOS: DATE: 06/10/20 TIME: 11:25 Chief Complaint Chief Complaint Nausea Vomiting Diarrhea Anxiety Depression GERD Hyperlipidemia Hypertension Cholecystectomy Tobacco abuse Hypomag Hypokalemia. History of Present Illness History of Present Illness 06/10/2020 Pt seen and examined LIONEL FLOWERS case management Discharge today 06/09/2020 Pt seen and examined LIONEL FLOWERS case management Friend bedside Vitals/I&O Vitals/I&O: Vital Signs Date Time Temp Pulse Resp B/P (MAP) Pulse Ox O2 Delivery O2 Flow Rate FiO2 06/10/20 04:20 98.6 86 18 130/96 (107) 98.6 06/09/20 23:24 95 06/09/20 11:40 Room Air I & O 06/09/20 06/09/20 06/10/20 15:00 23:00 07:00 Output Total 150 ml 250 ml Balance -150 ml -250 ml Physical Exam General: Alert, Oriented X3, Cooperative, No acute distress Heart: Regular rate, Normal S1, Normal S2, No murmurs Lungs: Clear Abdomen: Normal bowel sounds, No tenderness, No masses Extremities: No clubbing, No cyanosis, No edema, No tenderness/swelling Skin: No rashes, No breakdown, No significant lesion Labs Labs: Laboratory Tests Test 06/10/20 06:10 White Blood Count 10.1 x10^3/uL (4.0-11.0) Red Blood Count 3.51 x10^6/uL (3.50-5.40) Hemoglobin 11.6 g/dL (12.0-15.5) Hematocrit 34.1 % (36.0-47.0) Mean Corpuscular Volume 97 fL (79-100) Mean Corpuscular Hemoglobin 33 pg (25-35) Mean Corpuscular Hemoglobin Concent 34 g/dL (31-37) Red Cell Distribution Width 16.5 % (11.5-14.5) Platelet Count 175 x10^3/uL (140-400) Neutrophils (%) (Auto) 68 % (31-73) Lymphocytes (%) (Auto) 25 % (24-48) Monocytes (%) (Auto) 7 % (0-9) Eosinophils (%) (Auto) 0 % (0-3) Basophils (%) (Auto) 0 % (0-3) Neutrophils # (Auto) 6.9 x10^3/uL (1.8-7.7) Lymphocytes # (Auto) 2.5 x10^3/uL (1.0-4.8) Monocytes # (Auto) 0.7 x10^3/uL (0.0-1.1) Eosinophils # (Auto) 0.0 x10^3/uL (0.0-0.7) Basophils # (Auto) 0.0 x10^3/uL (0.0-0.2) Review of Systems Review of Systems: No digital clubbing, cyanosis, or SOB noted. Assessment and Plan Assessmemt and Plan Problems Medical Problems: (1) Dehydration Status: Acute (2) Intractable nausea and vomiting Status: Acute Nausea Vomiting Diarrhea Anxiety Depression GERD Hyperlipidemia Hypertension Cholecystectomy Tobacco abuse Hypomag Hypokalemia. Plan: Discharge today Home meds PTOT Full code Appreciate psychiatry input Comment Review of Relevant I have reviewed the following items josué (where applicable) has been applied. Medications: Current Medications Medications (Trade) Dose Ordered Sig/Kwaku Route PRN Reason Start Time Stop Time Status Last Admin Dose Admin Prochlorperazine Edisylate (Compazine) 10 mg PRN Q6HRS PRN IV NAUSEA/VOMITING, 2nd choice 06/09/20 11:30 06/09/20 19:54 Metoclopramide HCl (Reglan Vial) 5 mg QIDACHS IVP 06/09/20 16:30 06/10/20 09:40 DC 06/10/20 09:32 Lactobacillus Rhamnosus (Culturelle) 1 cap BID PO 06/09/20 21:00 06/10/20 09:33 Nicotine (Nicoderm Cq 21mg) 1 patch DAILY TD 06/09/20 17:30 06/10/20 09:33 Erythromycin (E-Mycin) 250 mg BID PO 06/09/20 21:00 06/10/20 09:34 Lorazepam (Ativan) 1 mg PRN BID PRN PO ANXIETY / AGITATION 06/09/20 20:30 06/09/20 23:10 Diclofenac Sodium (Voltaren) 1 lin BID TP 06/09/20 21:00 06/10/20 09:35 Justifications for Admission Other Justification NAYANA NY III DO Jun 10, 2020 11:28
[2020-06-10 11:40] VITALS: BP 136/94
--- NOTE | 2020-06-10 12:32 | NUR ---
Discharge Discharge instructions given to patient and father at this time, no questions or concerns noted. TO follow up with Dae Galindo Zwiebleman in 1 week. Patient left in wheelchair with all her belongings.
[2020-06-11] MEDS ORDERED: PANTOPRAZOLE 40 MG TABLET.DR. PO SCH (07:30)
--- NOTE | 2020-06-11 13:38 | DS ---
DATE OF DISCHARGE: 06/10/2020 ADMISSION DIAGNOSES: Intractable nausea, vomiting, dehydration. DISCHARGE DIAGNOSES: Resolving nausea and vomiting, resolving dehydration, possible undiagnosed neurologic disease, fatty liver, hyperlipidemia, depression, anxiety. CONSULTATIONS: Neurology, GI, and Psychiatry. PROCEDURES: None. HOSPITAL COURSE: The patient is a pleasant 35-year-old female well known to our service. She works here. She has been admitted a couple times with similar issues. At this time, she was weak. She was nauseated and vomiting. We admitted her. The above consults were obtained. We gave her IV fluids, encouraged p.o. intake. We did some physical therapy and occupational therapy. The neurologist was concerned there could be some undiagnosed neurologic condition. There is some serology workup that is still pending and a possible eventual MRI. Yesterday, the patient insisted she wanted to go home. We went ahead and discharged with very close outpatient followup. DISPOSITION: Home. ACTIVITY: As tolerated. DIET: Low sodium. MEDICATIONS: Please see the MRAD. TOTAL TIME: 32 minutes. NAYANA NY DO DR: YOSELIN/rachel JOB#: [id number] / [id number]
[2020-06-12] MEDS ORDERED: VANC125C3 PO (09:09)
== END 2020-06-10 12:39 | disposition home or self-care (01) | DRG 641 ==
LOC: ER 20:12 → 3 NORTH 06-08 02:14
PROVIDERS: ADMIT Internal Medicine; ATTEND Internal Medicine
DX: E86.0 Dehydration (principal); F33.1 Major depressive disorder, recurrent, moderate; N17.9 Acute kidney failure, unspecified; A60.00 Herpesviral infection of urogenital system, unspecified; E28.2 Polycystic ovarian syndrome; E53.8 Deficiency of other specified B group vitamins; E78.00 Pure hypercholesterolemia, unspecified; E78.1 Pure hyperglyceridemia; E78.5 Hyperlipidemia, unspecified; E83.42 Hypomagnesemia; E87.6 Hypokalemia; F06.4 Anxiety disorder due to known physiological condition; F12.90 Cannabis use, unspecified, uncomplicated; F17.210 Nicotine dependence, cigarettes, uncomplicated; F41.1 Generalized anxiety disorder; F41.8 Other specified anxiety disorders; G70.00 Myasthenia gravis without (acute) exacerbation; I11.0 Hypertensive heart disease with heart failure; I50.9 Heart failure, unspecified; K21.9 Gastro-esophageal reflux disease without esophagitis; K22.70 Barrett's esophagus without dysplasia; K31.84 Gastroparesis; K76.0 Fatty (change of) liver, not elsewhere classified; Z20.828 Contact with and (suspected) exposure to other viral communicable diseases; Z80.0 Family history of malignant neoplasm of digestive organs; Z82.49 Family history of ischemic heart disease and other diseases of the circulatory system; Z83.3 Family history of diabetes mellitus; Z90.49 Acquired absence of other specified parts of digestive tract; K21.00 Gastro-esophageal reflux disease with esophagitis, without bleeding; Z88.8 Allergy status to other drugs, medicaments and biological substances
CPT/HCPCS: 36415; 74176; 78264; 80053; 80307; 81001; 82607; 83655; 83690; 83735; 84100; 84425; 84702; 85007; 85025; 85610; 86140; 86703; 87086; 87476; 87493; 87798; 96361; 96365; 96375; A9541; C9113; J0780; J1630; J1885; J2060; J2405; J2543; J2765; J3475; J3480; J7030; 97110-GO; 97110-GP; 97535-GO; 99285-25; G0378

== ENCOUNTER 2020-12-07 04:43 | Inpatient (IN) | payer OTHER ==
[~2020-12-07] VITALS: Ht 160 cm; Wt 71.2 kg
[2020-12-07] VITALS (24 sets, daily range): BP systolic 88–148; BP diastolic 58–98
[~2020-12-07 04:43] MED LIST changes: +VANC125C3 PO
--- NOTE | 2020-12-07 04:47 | PHYS DOC ---
Past Medical History Past Medical History: Anxiety, Depression, GERD, High Cholesterol, Other Additional Past Medical Histor: HYPOMAGNESIUM,HYPOKALEMIA Past Surgical History: Cholecystectomy, Other Additional Past Surgical Histo: ankle Smoking Status: Current Every Day Smoker Alcohol Use: Occasionally Drug Use: None General Adult EDM: Chief Complaint: NAUSEA/VOMITING/DIARRHEA HPI: HPI: Patient is a 35-year-old female who presents with concerns due to nausea/vomiting secondary to gastroparesis. Reports symptoms began approximately 2 to 3 days ago and since that time she has not been able to hold her fluids down. Reports multiple episodes of emesis per day. Reports all emesis has been clear and nonhemorrhagic. Reports feeling weak dizzy and lightheaded in addition to having emesis. Reports feeling bloated since symptoms began. Does not know when her last menstrual period was. Reports taking Reglan for gastroparesis. 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 Review of Systems: Review of Systems: Fourteen body systems of review of systems have been reviewed. See HPI for pertinent positives and negative responses, other stovall all other systems are negative, non-pertinent or non-contributory Heart Score: C/O Chest Pain: N/A HEART Score for Chest Pain: HEART Score for Chest Pain Response (Comments) Value Age < 45 0 Risk Factors No Risk Factors 0 Total 0 Risk Factors: Risk Factors: DM, Current or recent (<one month) smoker, HTN, HLP, family h istory of CAD, obesity. Risk Scores: Score 0 - 3: 2.5% MACE over next 6 weeks - Discharge Home Score 4 - 6: 20.3% MACE over next 6 weeks - Admit for Clinical Observation Score 7 - 10: 72.7% MACE over next 6 weeks - Early Invasive Strategies Allergies: Allergies: Allergies Coded Allergies Type Severity Reaction Last Updated Verified Corticosteroids (Glucocorticoids) Allergy Severe facial swelling 05/25/20 Yes Penicillins Allergy Intermediate hives 05/25/20 Yes I S O L A T I O N *CONTACT* Allergy Unknown 06/03/19 Yes hydrocodone Adverse Reaction Mild Nausea 05/25/20 Yes Physical Exam: PE: Constitutional: Well developed, well nourished, no acute distress, non-toxic appearance. HENT: Normocephalic, atraumatic, bilateral external ears normal, oropharynx moist, no oral exudates, nose normal. Eyes: PERRLA, EOMI, conjunctiva normal, no discharge. Neck: Normal range of motion, no tenderness, supple, no stridor. Cardiovascular: Heart rate regular, sinus rhythm, no murmurs rubs or gallops Lungs & Thorax: Bilateral breath sounds clear to auscultation Abdomen: Bowel sounds normal, soft, epigastric tenderness without guarding or rebound, no masses, no pulsatile masses. Nonsurgical abdomen, no peritoneal signs. Negative CVA tenderness bilaterally, negative heel strike bilaterally, negative obturator bilaterally, negative Rayo's negative psoas, no periumbilical tenderness, negative Rovsing's, negative McBurney's point tenderness, nonsurgical abdomen Skin: Warm, dry, no erythema, no rash. Back: No tenderness, no CVA tenderness. Extremities: No tenderness, no cyanosis, no clubbing, ROM intact, no edema. Neurologic: Alert and oriented X 3, grossly normal motor & sensory function, no focal deficits noted. Psychologic: Affect normal, judgement normal, mood normal. Current Patient Data: Labs: Laboratory Tests Test 12/07/20 05:01 12/07/20 05:22 Magnesium Level 1.6 mg/dL White Blood Count 15.1 x10^3/uL Red Blood Count 4.57 x10^6/uL Hemoglobin 14.9 g/dL Hematocrit 43.6 % Mean Corpuscular Volume 95 fL Mean Corpuscular Hemoglobin 33 pg Mean Corpuscular Hemoglobin Concent 34 g/dL Red Cell Distribution Width 19.2 % Platelet Count 338 x10^3/uL Neutrophils (%) (Auto) 75 % Lymphocytes (%) (Auto) 16 % Monocytes (%) (Auto) 8 % Eosinophils (%) (Auto) 0 % Basophils (%) (Auto) 1 % Neutrophils # (Auto) 11.2 x10^3/uL Lymphocytes # (Auto) 2.4 x10^3/uL Monocytes # (Auto) 1.2 x10^3/uL Eosinophils # (Auto) 0.0 x10^3/uL Basophils # (Auto) 0.1 x10^3/uL Sodium Level 138 mmol/L Potassium Level 2.5 mmol/L Chloride Level 95 mmol/L Carbon Dioxide Level 28 mmol/L Anion Gap 15 Blood Urea Nitrogen 5 mg/dL Creatinine 1.0 mg/dL Estimated GFR (Cockcroft-Gault) 62.7 BUN/Creatinine Ratio 5 Glucose Level 141 mg/dL Calcium Level 9.2 mg/dL Total Bilirubin 1.2 mg/dL Aspartate Amino Transf (AST/SGOT) 67 U/L Alanine Aminotransferase (ALT/SGPT) 32 U/L Alkaline Phosphatase 87 U/L Total Protein 7.9 g/dL Albumin 3.5 g/dL Albumin/Globulin Ratio 0.8 Lipase 57 U/L Current Medications Medications (Trade) Dose Ordered Sig/Kwaku Route PRN Reason Start Time Stop Time Status Last Admin Dose Admin Ringer's Solution 500 ml @ 500 mls/hr 1X ONCE IV 12/07/20 05:00 12/07/20 05:59 DC Ringer's Solution 500 ml @ 500 mls/hr 1X ONCE IV 12/07/20 05:00 12/07/20 05:59 DC Metoclopramide HCl (Reglan Vial) 10 mg 1X ONCE IVP 12/07/20 05:30 12/07/20 05:05 DC Ringer's Solution 500 ml @ 500 mls/hr 1X ONCE IV 12/07/20 05:30 12/07/20 06:29 DC Haloperidol Lactate (Haldol Inj) 5 mg STK-MED ONCE .ROUTE 12/07/20 05:05 12/07/20 05:05 DC Haloperidol Lactate (Haldol Inj) 5 mg 1X ONCE IVP 12/07/20 05:30 12/07/20 05:31 DC 12/07/20 05:14 Diphenhydramine HCl (Benadryl) 50 mg 1X ONCE IVP 12/07/20 05:30 12/07/20 05:31 DC 12/07/20 05:14 Ringer's Solution 500 ml @ 1,000 mls/hr 1X ONCE IV 12/07/20 05:30 12/07/20 05:59 DC 12/07/20 05:13 Propofol 100 ml @ As Directed STK-MED ONCE IV 12/07/20 05:56 12/07/20 05:56 DC Potassium Chloride/Sodium Chloride 1,000 ml @ 125 mls/hr Q8H IV 12/07/20 06:30 12/07/20 14:29 Midazolam HCl (Versed) 5 mg STK-MED ONCE .ROUTE 4/14/21 06:29 12/07/20 06:30 DC Vital Signs: Vital Signs Date Time Temp Pulse Resp B/P (MAP) Pulse Ox O2 Delivery O2 Flow Rate FiO2 12/07/20 04:55 98.0 78 22 121/86 (98) 99 Room Air 98.0 Vital Signs Date Time Temp Pulse Resp B/P (MAP) Pulse Ox O2 Delivery O2 Flow Rate FiO2 12/07/20 06:10 97 Ventilator 12/07/20 04:55 98.0 78 22 121/86 (98) 98.0 EKG: EKG: EKG ordered and interpreted by myself at 0553 hrs. as sinus rhythm at 153 bpm, prolonged QRS at 128, prolonged QTC at 506, right axis deviation, no STEMI Radiology/Procedures: Radiology/Procedures: XR CHEST 1V Clinical History: Reason: S/P INTUBATION-- POST CODE;OG PLACEMENT / Spl. Instructions: / History: Technique: AP view of the chest was obtained at 12/07/2020 5:51 AM. Comparison: None. Findings: There is an NG tube with its tip at level clavicles. There is an enteric tube seen at least as far distal as the mid stomach. The heart and pulmonary vessels appear normal. The lungs and pleural margins are clear. Impression: Intrarenal tube and enteric tube well-positioned. Electronically signed by: William Powell III, MD (12/07/2020 6:18 AM) [facility] Course & Med Decision Making: Course & Med Decision Making Hemodynamically stable patient presenting with HPI and physical exam concerning for gastroparesis IV access obtained. IV fluid bolus with 1 L LR started. Subsequent 5 mg Haldol IV administered for nausea with prior history of THC abuse Nonetheless, patient found by RN on passing assessment and was found to be unresponsive and cyanotic. CODE BLUE called, please defer to nursing notes regarding specific timing and meds given. Patient's rhythm concerning for torsades and magnesium was started. Patient subsequently in V. fib and x2 separate unsynchronized defibrillated shocks at 200 J administered with eventual ROSC Patient was intubated during sudden cardiac arrest with placement confirmed. Propofol drip started. Remaining LR bolus administered, 40 mEq potassium and 1 L normal saline started at 125 mL/hr. I am unsure if cardiac arrest was secondary to vasovagal from continued coughing/dry heaving versus mix of hypokalemia and prolonged QT with recent Haldol administration. Patient last seen by RN approximately 5 minutes prior to CODE BLUE being called. Continuous ER rhythm strip reviewed, appears patient went into V. fib arrest Hospitalist contacted and case discussed. I discussed need for admission for continued medical care, Dr. Baldwin agreed and accepted patient under her care. Critical Care Time This patient required critical care. Due to the fact that the patient required a significant amount of one on one physician - patient contact time, ordering and review of studies, arranging urgent treatment with development of a management plan, evaluation of patients response to treatment with frequent reassessments, and discussions with other providers this patient required 55 minutes of critical care time. Critical care time was indicated due to the inherent instability and/or potential for instability in this patient. The critical care time that is allocated to this patient is above and beyond any time spent on any other billable procedures performed on this patient. Dragon Disclaimer: Dragon Disclaimer: This electronic medical record was generated, in whole or in part, using a voice recognition dictation system. Intubation Intubation : Intubation Method: orotracheal Tube Size (cm): 7.5 Breath Sounds after Intubation: equal Intubation Complications: no complications Post Intubation Xray: Yes Progress Patient intubated during cardiac arrest. Implied consent/medical necessity. Proper preintubation protocol followed. No medications were used given patient condition. 3 Mac blade and 7.5 ETT used. Cords were visualized, secretions were suctioned and tube was passed by myself on first attempt. Positive color change, bilateral chest rise, subsequent postprocedural chest x-ray performed all confirming placement. There were no reported and/or observed complications. Total procedure time took less than 20 seconds. Departure Departure Impression: Primary Impression: Cardiac arrest Additional Impressions: Hypokalemia Nausea and vomiting Prolonged QT interval Hypomagnesemia Disposition: 02 [facility] Admitting Physician: SUZETTE (DR BALDWIN) Condition: GUARDED Referrals: SHARMAINE YANES APRN (PCP) ALEJANDRA GALAVIZ DO Dec 07, 2020 04:47
[2020-12-07] MEDS ORDERED: IV RINGERS,LACTATED 500ML 500 ML IV ONE ×4 (05:00→05:30)
[2020-12-07] MEDS ORDERED: HALOPERIDOL LACTATE 5 MG/ML VIAL. ONE (05:05)
[2020-12-07] MEDS ORDERED: HALOPERIDOL LACTATE 5 MG/ML VIAL. IVP ONE (05:30)
[2020-12-07] MEDS ORDERED: METOCLOPRAMIDE HCL 10 MG/2 ML VIAL. IVP ONE (05:30)
[2020-12-07] MEDS ORDERED: diphenhydrAMINE 50 MG/ML VIAL IVP ONE (05:30)
[2020-12-07 05:31] LABS: BASO # 0.1 x10^3/uL (0.0-0.2); BASO % 1 % (0-3); EOS % 0 % (0-3); HEMATOCRIT 43.6 % (36.0-47.0); HEMOGLOBIN 14.9 g/dL (12.0-15.5); LYMPH # 2.4 x10^3/uL (1.0-4.8); LYMPH % 16 % (24-48); MEAN CORPUSCULAR HEMOGLOBIN 33 pg (25-35); MEAN CORPUSCULAR HGB CONC 34 g/dL (31-37); MEAN CORPUSCULAR VOLUME 95 fL (79-100); MONO # 1.2 x10^3/uL (0.0-1.1); MONO % 8 % (0-9); NEUT # 11.2 x10^3/uL (1.8-7.7); NEUT % 75 % (31-73); PLATELET COUNT 338 x10^3/uL (140-400); RED BLOOD COUNT 4.57 x10^6/uL (3.50-5.40); RED CELL DISTRIBUTION WIDTH 19.2 % (11.5-14.5); WHITE BLOOD COUNT 15.1 x10^3/uL (4.0-11.0)
[2020-12-07 05:45] LABS: ALBUMIN 3.5 g/dL (3.4-5.0); ALBUMIN/GLOBULIN RATIO 0.8 (1.0-1.7); CALCIUM 9.2 mg/dL (8.5-10.1); GFR 62.7; TOTAL BILIRUBIN 1.2 mg/dL (0.2-1.0); TOTAL PROTEIN 7.9 g/dL (6.4-8.2)
[2020-12-07 05:51] LABS: POTASSIUM 2.5 mmol/L (3.5-5.1)
[2020-12-07] MEDS ORDERED: PROPOFOL 100 ML IV ONE (05:56)
--- NOTE | 2020-12-07 06:03 | EKG ---
[facility] [address] [place] [address] Test Date: 2020-12-07 Test Time: 05:46:48 Pat Name: GENEVIEVE ALANIZ Department: Room: Gender: F [employer]ician: : 1985 Requested By: ALEJANDRA GALAVIZ Order Number: [id number] Reading MD: Measurements Intervals [place] Rate: 153 P: ND: QRS: -162 QRSD: 128 T: 17 QT: 314 QTc: 506 Interpretive Statements IRREGULAR RHYTHM, NO P-WAVE FOUND ABNORMAL RIGHT SUPERIOR AXIS DEVIATION NON SPECIFIC INTRAVENTRICULAR BLOCK CONSIDER RIGHT VENTRICULAR HYPERTROPHY QRS(T) CONTOUR ABNORMALITY CONSIDER ANTEROLATERAL MYOCARDIAL DAMAGE ABNORMAL ECG RI6.01 No previous ECG available for comparison
--- NOTE | 2020-12-07 06:21 | RAD ---
XR CHEST 1V Clinical History: Reason: S/P INTUBATION-- POST CODE;OG PLACEMENT / Spl. Instructions: / History: Technique: AP view of the chest was obtained at 12/07/2020 5:51 AM. Comparison: None. Findings: There is an NG tube with its tip at level clavicles. There is an enteric tube seen at least as far di stal as the mid stomach. The heart and pulmonary vessels appear normal. The lungs and pleural margins are clear. Impression: Intrarenal tube and enteric tube well-positioned. Electronically signed by: William Powell III, MD (12/07/2020 6:18 AM) [facility]
[2020-12-07] MEDS ORDERED: MIDAZOLAM HCL/PF 5 MG/5 ML VIAL. ONE ×2 (06:29→12:00)
[2020-12-07] MEDS ORDERED: POTASSIUM CL 40MEQ IN 0.9%NACL 1,000 ML IV SCH (06:30)
[2020-12-07 06:45] LABS: BILIRUBIN,URINE SMALL (NEG); CLARITY,URINE CLOUDY; COLOR,URINE AMBER; NITRITE,URINE NEGATIVE (NEG); PH,URINE 6.5 (<5.0-8.0); PROTEIN,URINE >=300 mg/dL (NEG-TRACE)
[2020-12-07 07:06] LABS: BACTERIA,URINE FEW /HPF (0-FEW); RBC,URINE OCC /HPF (0-2)
[2020-12-07] MEDS: MIDAZOLAM 100mg/100ml NS BAG 100 ML IV PRN ×2 (07:15→20:29)
[2020-12-07] MEDS ORDERED: MAGNESIUM SULFATE 4GM 100 ML IV ONE (07:30)
--- NOTE | 2020-12-07 07:32 | PDOC1 ---
History and Physical Date of Admission Date of Admission DATE: 12/07/20 TIME: 07:28 Identification/Chief Complaint Chief Complaint Nausea and vomiting Source Source: Caregiver, Chart review History of Present Illness History of Present Illness Ms Lafleur is a 35yo F w/ PMHx Anxiety, Depression, GERD, barrets, High Cholesterol, gastroparesis, OA bilateral ankles, smoker who presented to the ED c/o intractable nausea and vomiting that progressed over the past 3 days to the point she was unable to hold down liquids or her reglan. She reported to ED she had more than 5 bouts of emesis per day. Labs significant for WBC 15.1, Hb 14.9, platelets 338, NA 138, K2.5, magnesium 1.6, BUN 5, CR 1, glucose 141, bilirubin 1.1, AST 67, lipase 57. She was given a bolus of lactated Ringer's and IV Reglan. No significant improvement and was given 5 mg IV Haldol. EKG was sinus tachycardia 153 bpm, prolonged QRS at 128, prolonged QTC at 506, right axis deviation, no STEMI CODE BLUE was called around 05 100 when yield loss inspector. With torsades which converted to ventricular fibrillation. Patient was given IV magnesium and two 200 J shocks with ROSC. Patient was intubated during cardiac arrest and started on propofol and potassium GTT. She was not completely sedated on propofol and Versed was added. Patient seen by myself sedated on ventilator in ED. Chest radiograph with ET tube and OGT in appropriate position. Admitted ICU for further care. Past Medical History Cardiovascular: Hyperlipidemia Pulmonary: No pertinent hx GI: GERD, Other Heme/Onc: No pertinent hx Hepatobiliary: No pertinent hx Psych: Anxiety, Depression Rheumatologic: No pertinent hx Infectious disease: Other Renal/: No pertinent hx Endocrine: No pertinent hx Past Surgical History Past Surgical History: Cholecystectomy, Other Family History Family History: Family History Unknown Social History Smoke: <1 pack per day ALCOHOL: other Drugs: Marijuana Current Problem List Problem List Problems Medical Problems: (1) Cardiac arrest Status: Acute (2) Hypokalemia Status: Acute (3) Hypomagnesemia Status: Acute (4) Nausea and vomiting Status: Acute (5) Prolonged QT interval Status: Acute Current Medications Current Medications Current Medications Ringer's Solution 500 ml @ 500 mls/hr 1X ONCE IV ; Start 12/07/20 at 05:00; Stop 12/07/20 at 05:59; Status DC Ringer's Solution 500 ml @ 500 mls/hr 1X ONCE IV ; Start 12/07/20 at 05:00; Stop 12/07/20 at 05:59; Status DC Metoclopramide HCl (Reglan Vial) 10 mg 1X ONCE IVP ; Start 12/07/20 at 05:30; Stop 12/07/20 at 05:05; Status DC Ringer's Solution 500 ml @ 500 mls/hr 1X ONCE IV ; Start 12/07/20 at 05:30; Stop 12/07/20 at 06:29; Status DC Haloperidol Lactate (Haldol Inj) 5 mg STK-MED ONCE .ROUTE ; Start 12/07/20 at 05:05; Stop 12/07/20 at 05:05; Status DC Haloperidol Lactate (Haldol Inj) 5 mg 1X ONCE IVP Last administered on 12/07/20at 05:14; Start 12/07/20 at 05:30; Stop 12/07/20 at 05:31; Status DC Diphenhydramine HCl (Benadryl) 50 mg 1X ONCE IVP Last administered on 12/07/20at 05:14; Start 12/07/20 at 05:30; Stop 12/07/20 at 05:31; Status DC Ringer's Solution 500 ml @ 1,000 mls/hr 1X ONCE IV Last administered on 12/07/20at 05:13; Start 12/07/20 at 05:30; Stop 12/07/20 at 05:59; Status DC Propofol 100 ml @ As Directed STK-MED ONCE IV ; Start 12/07/20 at 05:56; Stop 12/07/20 at 05:56; Status DC Potassium Chloride/Sodium Chloride 1,000 ml @ 125 mls/hr Q8H IV Last administered on 12/07/20at 06:30; Start 12/07/20 at 06:30; Stop 12/07/20 at 14:29 Midazolam HCl (Versed) 5 mg STK-MED ONCE .ROUTE ; Start 12/07/20 at 06:29; Stop 12/07/20 at 06:30; Status DC Fentanyl Citrate 30 ml @ 0 mls/hr CONT PRN IV SEE PROTOCOL; Start 12/07/20 at 07:00 Chlorhexidine Gluconate (Peridex) 15 ml BID MM ; Start 12/07/20 at 09:00 Midazolam HCl 100 ml @ 0 mls/hr CONT PRN IV SEE PROTOCOL Last administered on 12/07/20at 07:15; Start 12/07/20 at 07:00 Magnesium Sulfate 100 ml @ 25 mls/hr 1X ONCE IV ; Start 12/07/20 at 07:30; St op 12/07/20 at 11:29; Status UNV Famotidine (Pepcid Vial) 20 mg BID IVP ; Start 12/07/20 at 09:00; Status UNV Active Scripts Active Vancomycin Hcl 125 Mg Capsule 1 Cap PO QID 10 Days Potassium Chloride (Potassium Chloride) 20 Meq Tablet.er 20 Meq PO BIDAC 30 Days Reglan (Metoclopramide Hcl) 10 Mg Tablet 10 Mg PO TID PRN Compazine (Prochlorperazine Maleate) 10 Mg Tablet 1 Tab PO Q6HRS Ondansetron Odt (Ondansetron) 4 Mg Tab.rapdis 1 Tab PO PRN Q6-8HRS Amitriptyline Hcl 10 Mg Tablet 1 Tab PO QHS 90 Days Celexa (Citalopram Hydrobromide) 20 Mg Tablet 1 Tab PO QHS Reported Fenofibrate (Fenofibrate,Micronized) 134 Mg Capsule 134 Mg PO DAILY Nexium Capsule (Esomeprazole Magnesium) 40 Mg Capsule.dr 1 Cap PO DAILY Allergies Allergies: Coded Allergies: Corticosteroids (Glucocorticoids) (Verified Allergy, Severe, facial swelling, 05/25/20) Penicillins (Verified Allergy, Intermediate, hives, 05/25/20) I S O L A T I O N *CONTACT* (Verified Allergy, Unknown, 06/03/19) mrsa hydrocodone (Verified Adverse Reaction, Mild, Nausea, 05/25/20) ROS Review of System Unable to obtain due to sedation on ventilator Physical Exam General: mild distress, Other (Sedated on vent) HEENT: Atraumatic, PERRLA, EOMI, Mucous membr. moist/pink Lungs: Clear to auscultation, Normal air movement Heart: S1S2, RRR, no thrills, no rubs, no gallops, no murmurs Abdomen: Normal bowel sounds, Soft, No tenderness, No hepatosplenomegaly, No masses Extremities: No clubbing, No cyanosis, No edema, Normal pulses, No tendernes s/swelling Skin: No rashes, No breakdown, No significant lesion Neuro: Reflexes 2+, Other (Moving all 4 limbs, withdraws to pain) Psych/Mental Status: Other (Sedated) Vitals Vitals Vital Signs Date Time Temp Pulse Resp B/P (MAP) Pulse Ox O2 Delivery O2 Flow Rate FiO2 12/07/20 06:10 97 Ventilator 12/07/20 04:55 98.0 78 22 121/86 (98) 98.0 Labs Labs Laboratory Tests Test 12/07/20 05:01 12/07/20 05:22 12/07/20 06:00 Magnesium Level 1.6 mg/dL (1.8-2.4) Troponin I Quantitative < 0.017 ng/mL (0.000-0.055) White Blood Count 15.1 x10^3/uL (4.0-11.0) Red Blood Count 4.57 x10^6/uL (3.50-5.40) Hemoglobin 14.9 g/dL (12.0-15.5) Hematocrit 43.6 % (36.0-47.0) Mean Corpuscular Volume 95 fL (79-100) Mean Corpuscular Hemoglobin 33 pg (25-35) Mean Corpuscular Hemoglobin Concent 34 g/dL (31-37) Red Cell Distribution Width 19.2 % (11.5-14.5) Platelet Count 338 x10^3/uL (140-400) Neutrophils (%) (Auto) 75 % (31-73) Lymphocytes (%) (Auto) 16 % (24-48) Monocytes (%) (Auto) 8 % (0-9) Eosinophils (%) (Auto) 0 % (0-3) Basophils (%) (Auto) 1 % (0-3) Neutrophils # (Auto) 11.2 x10^3/uL (1.8-7.7) Lymphocytes # (Auto) 2.4 x10^3/uL (1.0-4.8) Monocytes # (Auto) 1.2 x10^3/uL (0.0-1.1) Eosinophils # (Auto) 0.0 x10^3/uL (0.0-0.7) Basophils # (Auto) 0.1 x10^3/uL (0.0-0.2) Sodium Level 138 mmol/L (136-145) Potassium Level 2.5 mmol/L (3.5-5.1) Chloride Level 95 mmol/L (98-107) Carbon Dioxide Level 28 mmol/L (21-32) Anion Gap 15 (6-14) Blood Urea Nitrogen 5 mg/dL (7-20) Creatinine 1.0 mg/dL (0.6-1.0) Estimated GFR (Cockcroft-Gault) 62.7 BUN/Creatinine Ratio 5 (6-20) Glucose Level 141 mg/dL (70-99) Calcium Level 9.2 mg/dL (8.5-10.1) Total Bilirubin 1.2 mg/dL (0.2-1.0) Aspartate Amino Transf (AST/SGOT) 67 U/L (15-37) Alanine Aminotransferase (ALT/SGPT) 32 U/L (14-59) Alkaline Phosphatase 87 U/L (46-116) Total Protein 7.9 g/dL (6.4-8.2) Albumin 3.5 g/dL (3.4-5.0) Albumin/Globulin Ratio 0.8 (1.0-1.7) Lipase 57 U/L (73-393) Urine Collection Type Unknown Urine Color Wendy Urine Clarity Cloudy Urine pH 6.5 (<5.0-8.0) Urine Specific [place] 1.025 (1.000-1.030) Urine Protein >=300 mg/dL (NEG-TRACE) Urine Glucose (UA) 100 mg/dL (NEG) Urine Ketones (Stick) 40 mg/dL (NEG) Urine Blood Small (NEG) Urine Nitrite Negative (NEG) Urine Bilirubin Small (NEG) Urine Urobilinogen Dipstick 1.0 mg/dL (0.2 mg/dL) Urine Leukocyte Esterase Small (NEG) Urine RBC Occ /HPF (0-2) Urine WBC 5-10 /HPF (0-4) Urine Squamous Epithelial Cells Many /LPF Urine Bacteria Few /HPF (0-FEW) Laboratory Tests Test 12/07/20 05:01 12/07/20 05:22 12/07/20 06:00 Magnesium Level 1.6 mg/dL (1.8-2.4) Troponin I Quantitative < 0.017 ng/mL (0.000-0.055) White Blood Count 15.1 x10^3/uL (4.0-11.0) Red Blood Count 4.57 x10^6/uL (3.50-5.40) Hemoglobin 14.9 g/dL (12.0-15.5) Hematocrit 43.6 % (36.0-47.0) Mean Corpuscular Volume 95 fL (79-100) Mean Corpuscular Hemoglobin 33 pg (25-35) Mean Corpuscular Hemoglobin Concent 34 g/dL (31-37) Red Cell Distribution Width 19.2 % (11.5-14.5) Platelet Count 338 x10^3/uL (140-400) Neutrophils (%) (Auto) 75 % (31-73) Lymphocytes (%) (Auto) 16 % (24-48) Monocytes (%) (Auto) 8 % (0-9) Eosinophils (%) (Auto) 0 % (0-3) Basophils (%) (Auto) 1 % (0-3) Neutrophils # (Auto) 11.2 x10^3/uL (1.8-7.7) Lymphocytes # (Auto) 2.4 x10^3/uL (1.0-4.8) Monocytes # (Auto) 1.2 x10^3/uL (0.0-1.1) Eosinophils # (Auto) 0.0 x10^3/uL (0.0-0.7) Basophils # (Auto) 0.1 x10^3/uL (0.0-0.2) Sodium Level 138 mmol/L (136-145) Potassium Level 2.5 mmol/L (3.5-5.1) Chloride Level 95 mmol/L (98-107) Carbon Dioxide Level 28 mmol/L (21-32) Anion Gap 15 (6-14) Blood Urea Nitrogen 5 mg/dL (7-20) Creatinine 1.0 mg/dL (0.6-1.0) Estimated GFR (Cockcroft-Gault) 62.7 BUN/Creatinine Ratio 5 (6-20) Glucose Level 141 mg/dL (70-99) Calcium Level 9.2 mg/dL (8.5-10.1) Total Bilirubin 1.2 mg/dL (0.2-1.0) Aspartate Amino Transf (AST/SGOT) 67 U/L (15-37) Alanine Aminotransferase (ALT/SGPT) 32 U/L (14-59) Alkaline Phosphatase 87 U/L (46-116) Total Protein 7.9 g/dL (6.4-8.2) Albumin 3.5 g/dL (3.4-5.0) Albumin/Globulin Ratio 0.8 (1.0-1.7) Lipase 57 U/L (73-393) Urine Collection Type Unknown Urine Color Wendy Urine Clarity Cloudy Urine pH 6.5 (<5.0-8.0) Urine Specific [place] 1.025 (1.000-1.030) Urine Protein >=300 mg/dL (NEG-TRACE) Urine Glucose (UA) 100 mg/dL (NEG) Urine Ketones (Stick) 40 mg/dL (NEG) Urine Blood Small (NEG) Urine Nitrite Negative (NEG) Urine Bilirubin Small (NEG) Urine Urobilinogen Dipstick 1.0 mg/dL (0.2 mg/dL) Urine Leukocyte Esterase Small (NEG) Urine RBC Occ /HPF (0-2) Urine WBC 5-10 /HPF (0-4) Urine Squamous Epithelial Cells Many /LPF Urine Bacteria Few /HPF (0-FEW) Images Images Chest radiograph interpretation: There is an ET tube with its tip at level clavicles. There is an enteric tube seen at least as far distal as the mid stomach. The heart and pulmonary vessels appear normal. The lungs and pleural margins are clear. Impression: ET tube and enteric tube well-positioned. VTE Prophylaxis Ordered VTE Prophylaxis Devices: No VTE Pharmacological Prophylaxi: Yes Assessment/Plan Assessment/Plan A/P: Ventricular fibrillation Cardiac arrest -likely due to torsades with prolonged QT worsened by hypokalemia, hypomagnesemia as well as Reglan and Haldol administration. Hypokalemia -replace IV Gastroparesis with Nausea and vomiting -has not tolerated erythromycin in the past and will with this event Reglan may need to be substituted. GI consulted Prolonged QT interval -worsened by hypokalemia hypomagnesemia and prolonged Reglan use. Hypomagnesemia -replaced due to torsades Osteoarthritis bilateral ankles -has outpatient orthopedic follow-up Anxiety with depression -we will hold SSRI while patient is on ventilator. Respiratory failure - due to cardiac arrest. No pulmonary history. Pulmonology consulted FEN - NPO PPX - pepcid, lovenox FULL CODE Dispo - ICU for cardiac arrest CC time 42 minutes Justifications for Admission Other Justification MARIA TERESA ERICKSON MD Dec 07, 2020 07:32
[2020-12-07] MEDS ORDERED: MIDAZOLAM 100mg/100ml NS BAG 100 ML IV PRN (08:00)
[2020-12-07] MEDS ORDERED: POLYVINYL ALCOHOL 1.4% OPHTH SOLUTION 15ML BOTTLE. OU PRN (08:00)
[2020-12-07] MEDS ORDERED: VECURONIUM BOLUS 10 MG VIAL. IV PRN (08:00)
--- NOTE | 2020-12-07 08:10 | RAD ---
CT HEAD/BRAIN WO History: Reason: r/o bleed for hypothermia / Spl. Instructions: / History: Comparison: None. Technique: Noncontrast CT imaging was performed of the head. Exposure: One or more of the following individualized dose reduction techniques were utilized for thi s examination: 1. Automated exposure control 2. Adjustment of the mA and/or kV according to patient size 3. Use of iterative reconstruction technique. Findings: No intracranial hemorrhage. No mass effect. No hydrocephalus. Extra-axial spaces are unremarkable. Imaged orbits are unremarkable. Imaged paranasal sinuses and mastoid air cells are clear. No acute ca lvarial fracture. Impression: 1. No acute intracranial abnormality. Electronically signed by: Jamison Jones DO (12/07/2020 8:08 AM) [id number]
[2020-12-07] MEDS: POTASSIUM CHLORIDE 10MEQ 100 ML IV SCH ×4 (08:48→10:49)
[2020-12-07] MEDS: ACETAMINOPHEN 650 MG/20.3 ML SOLUTION. NG SCH ×4 (08:50→20:27)
[2020-12-07] MEDS: busPIRone 10 MG TABLET. NG SCH ×2 (08:50→13:51)
[2020-12-07] MEDS ORDERED: FAMOTIDINE 20 MG/2 ML VIAL IVP SCH (09:00)
[2020-12-07] MEDS ORDERED: CHLORHEXIDINE 0.12% 15 ML MOUTHWASH. MM SCH (09:00)
[2020-12-07 09:40] LABS: BASE EXCESS ABG -2 mmol/L (-3-3); HCO3 ABG 20 mmol/L (21-28); PCO2 ABG 29 mmHg (35-46); PO2 ABG 184 mmHg (85-108); SAT O2 ABG 99 % (92-99)
[2020-12-07 09:47] LABS: FIO2 ABG 40
--- NOTE | 2020-12-07 09:58 | RAD ---
XR CHEST 1V History: Reason: POST LINE PLACEMENT / Spl. Instructions: / History: Comparison: December 07, 2020 Findings: Interval placement right IJ central line with tip projecting over the right atrium. Stable endotrache al tube and enteric tube. No consolidation or pleural effusion. No pneumothorax. Impression: 1. Interval placement right IJ central line with tip projecting over the right atrium. No pneumothor ax. Electronically signed by: Jamison Jones DO (12/07/2020 9:55 AM) [id number]
--- NOTE | 2020-12-07 09:58 | CONS ---
DATE OF CONSULTATION: 12/07/2020 PULMONARY CONSULTATION ATTENDING PHYSICIAN: Zac Alba MD REASON FOR CONSULTATION: Respiratory failure, cardiac arrest. HISTORY OF PRESENT ILLNESS: The patient is a 35-year-old female who has history of anxiety, depression, GERD, history of gastroparesis. The patient has history of hepatic steatosis as well. She is also a smoker. She drinks energy drinks, Red Bull 5-6 per day. She was brought into the hospital with intractable nausea and vomiting. That has progressed for the last 3 days. Apparently, she has required admissions for the same symptoms multiple times in the past. The patient had a CT abdomen and pelvis was done previously, which showed hepatic steatosis, and gastric emptying study has shown gastroparesis. No evidence of pancreatitis. The patient collapsed in the ER. She was noted to be in ventricular fibrillation. Full ACLS protocol was provided. Apparently per code sheet, she had about 10 minutes of code blue in the ER. She has return of spontaneous circulation. Currently, her blood pressure is stable. Her CT head did not reveal any intracranial abnormalities. The patient had some electrolyte abnormalities including hypokalemia and hypophosphatemia. Her arterial blood gases was a venous sample and it will be repeated. Chest x-ray post-intubation was reviewed by me and it shows no obvious pneumonia or congestive heart failure. Currently, she is hemodynamically stable. I have been asked to see her for further evaluation. I gave the order for hypothermic protocol. PAST MEDICAL HISTORY: Significant for history of hyperlipidemia, GERD, depression, anxiety, gastroparesis and hepatic steatosis. PAST SURGICAL HISTORY: Cholecystectomy. FAMILY HISTORY: Father reportedly had history of pancreatic cancer. SOCIAL HISTORY: Smoker, less than 1 pack per day and also drinks Red Bull 5-6 a day. ALLERGIES: CORTICOSTEROIDS, PENICILLIN, HYDROCODONE. REVIEW OF SYSTEMS: Unable to obtain from the patient. PHYSICAL EXAMINATION: VITAL SIGNS: Blood pressure is 119 systolic. Afebrile, pulse ox is 96% on current FiO2 of 40%. Assist control mode. Pupils do react to light. HEENT: Sclerae nonicteric. NECK: Supple. LUNGS: With clear breath sounds. CARDIOVASCULAR: With a regular rate. ABDOMEN: Soft, nontender. EXTREMITIES: With no pitting edema. LABORATORY DATA: Reviewed. White cell count 15.1, hemoglobin 14.9, platelets are 338. Potassium 2.5, bicarb 28, BUN 5, and creatinine 1.0. Phosphorus 1.8, blood sugar 164. Lipase 57, bilirubin 1.2. IMPRESSION: 1. Acute respiratory failure secondary to cardiac arrest. 2. Ventricular fibrillation cardiac arrest requiring 10 minutes of advanced cardiac life support protocol with return of spontaneous circulation. Unclear etiology. ? Haldol induced Torsade. Need to rule out ischemia. She also has history of drinking Red Bull 5-6 times a day and excessive caffeine consumption can also contribute to arrhythmias. 3. Severe hypokalemia, currently being repleted. 4. Severe hypophosphatemia, will be repeated. 5. Mildly increased bilirubin level. We will follow. 6. History of hepatic steatosis. 7. History of tobacco use. 8. Low Mg RECOMMENDATIONS: 1. Continue present assist control mode. Follow ABGs and make necessary adjustment. 2. Continue hypothermic protocol. 3. Cardiology consultation and will consider need for cardiac catheterization. 4. Deep venous thrombosis prophylaxis with heparin. 5. Obtain D-dimers. 6. Stress ulcer prophylaxis. 7. Once hypothermic protocol is over, we will assess for mental status to make sure she does not have any anoxic brain injury. 8. We will not need an echocardiogram. 9. Discussed with RN /RT , Patients father and Cardiology. cath soon Total critical care time 40 minutes including review of the chart, imaging studies, lab, assessment and decision making. RAFAELA HWANG MD DR: DESTINEE/rachel JOB#: [id number] / [id number] JOSE ANTONIO
--- NOTE | 2020-12-07 10:00 | PDOC2 ---
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 History from chart and staff: to ER w/ n/v x 3 days. Noted w/ hypokalemia and hypomagnesemia, given IVF, Reglan, Haldol. Prolonged QT, Torsades/V fib arrest, now intubated/sedated in ICU. Per previous encounter: EGD w/ Dr. Xavier on 05/25/20 for h/o Kong's esophagus and n/v showed LA Grade A reflux esophagitis (biopsy c/w reflux, no Kong's), normal stomach, granular mucosa in entire duodenum (biopsy w/o significant abnormalities, no sprue). Reportedly had normal colonoscopy in the past. GES in 05/2020 while inpatient showed 22% retention at 4 hours c/w gastroparesis. She was discharged w/ trial of e-mycin. H&P indicates she did not tolerate this. Apparently most recently on Reglan. H/o C Diff treated w/ vanco. S/p cholecystectomy for stones. Severe hepatic steatosis past imaging. No pancreas history. In the past, normal IRIS, Cortisol, celiac panel, and B12. Med summary list includes Nexium, Reglan, and amitriptyline. Previously reported diclofenac use. PMH: PMH: GERD, anxiety, depression, hypertriglyceridemia, PCOS, B12 deficiency, HPV/abnormal paps, genital herpes/warts, UTI, hypokalemia cholecystectomy, left groin I&D, wisdom teeth extraction, right ankle surgeries FH: Family History: Cancer (mother - pancreatic), Hypertension Social History: Smoke: <1 pack per day ALCOHOL: occassional Drugs: Marijuana ROS: unable to obtain Vitals: Vitals: Vital Signs Date Time Temp Pulse Resp B/P (MAP) Pulse Ox O2 Delivery O2 Flow Rate FiO2 12/07/20 09:45 100 Ventilator 12/07/20 09:07 18 40.0 12/07/20 07:11 119/80 (93) 12/07/20 06:59 116 12/07/20 04:55 98.0 98.0 Labs: Labs: Laboratory Tests Test 12/07/20 05:01 12/07/20 05:22 12/07/20 06:00 12/07/20 09:27 Magnesium Level 1.6 mg/dL (1.8-2.4) Troponin I Quantitative < 0.017 ng/mL (0.000-0.055) White Blood Count 15.1 x10^3/uL (4.0-11.0) Red Blood Count 4.57 x10^6/uL (3.50-5.40) Hemoglobin 14.9 g/dL (12.0-15.5) Hematocrit 43.6 % (36.0-47.0) Mean Corpuscular Volume 95 fL (79-100) Mean Corpuscular Hemoglobin 33 pg (25-35) Mean Corpuscular Hemoglobin Concent 34 g/dL (31-37) Red Cell Distribution Width 19.2 % (11.5-14.5) Platelet Count 338 x10^3/uL (140-400) Neutrophils (%) (Auto) 75 % (31-73) Lymphocytes (%) (Auto) 16 % (24-48) Monocytes (%) (Auto) 8 % (0-9) Eosinophils (%) (Auto) 0 % (0-3) Basophils (%) (Auto) 1 % (0-3) Neutrophils # (Auto) 11.2 x10^3/uL (1.8-7.7) Lymphocytes # (Auto) 2.4 x10^3/uL (1.0-4.8) Monocytes # (Auto) 1.2 x10^3/uL (0.0-1.1) Eosinophils # (Auto) 0.0 x10^3/uL (0.0-0.7) Basophils # (Auto) 0.1 x10^3/uL (0.0-0.2) Prothrombin Time 13.0 SEC (11.7-14.0) Prothromb Time International Ratio 1.0 (0.8-1.1) Activated Partial Thromboplast Time 25 SEC (24-38) Sodium Level 138 mmol/L (136-145) Potassium Level 2.5 mmol/L (3.5-5.1) Chloride Level 95 mmol/L (98-107) Carbon Dioxide Level 28 mmol/L (21-32) Anion Gap 15 (6-14) Blood Urea Nitrogen 5 mg/dL (7-20) Creatinine 1.0 mg/dL (0.6-1.0) Estimated GFR (Cockcroft-Gault) 62.7 BUN/Creatinine Ratio 5 (6-20) Glucose Level 141 mg/dL (70-99) Calcium Level 9.2 mg/dL (8.5-10.1) Phosphorus Level 1.8 mg/dL (2.6-4.7) Total Bilirubin 1.2 mg/dL (0.2-1.0) Aspartate Amino Transf (AST/SGOT) 67 U/L (15-37) Alanine Aminotransferase (ALT/SGPT) 32 U/L (14-59) Alkaline Phosphatase 87 U/L (46-116) Total Protein 7.9 g/dL (6.4-8.2) Albumin 3.5 g/dL (3.4-5.0) Albumin/Globulin Ratio 0.8 (1.0-1.7) Triglycerides Level 118 mg/dL (0-150) Lipase 57 U/L (73-393) Urine Collection Type Unknown Urine Color Wendy Urine Clarity Cloudy Urine pH 6.5 (<5.0-8.0) Urine Specific [place] 1.025 (1.000-1.030) Urine Protein >=300 mg/dL (NEG-TRACE) Urine Glucose (UA) 100 mg/dL (NEG) Urine Ketones (Stick) 40 mg/dL (NEG) Urine Blood Small (NEG) Urine Nitrite Negative (NEG) Urine Bilirubin Small (NEG) Urine Urobilinogen Dipstick 1.0 mg/dL (0.2 mg/dL) Urine Leukocyte Esterase Small (NEG) Urine RBC Occ /HPF (0-2) Urine WBC 5-10 /HPF (0-4) Urine Squamous Epithelial Cells Many /LPF Urine Bacteria Few /HPF (0-FEW) Glucose (Fingerstick) 164 mg/dL (70-99) Test 12/07/20 09:38 O2 Saturation 99 % (92-99) Arterial Blood pH 7.46 (7.35-7.45) Arterial Blood pCO2 at Patient Temp 29 mmHg (35-46) Arterial Blood pO2 at Patient Temp 184 mmHg (85-108) Arterial Blood HCO3 20 mmol/L (21-28) Arterial Blood Base Excess -2 mmol/L (-3-3) FiO2 40 Allergies: Coded Allergies: Corticosteroids (Glucocorticoids) (Verified Allergy, Severe, facial swelling, 05/25/20) Penicillins (Verified Allergy, Intermediate, hives, 05/25/20) I S O L A T I O N *CONTACT* (Verified Allergy, Unknown, 06/03/19) mrsa hydrocodone (Verified Adverse Reaction, Mild, Nausea, 05/25/20) Medications: Current Medications Medications (Trade) Dose Ordered Sig/Kwaku Route PRN Reason Start Time Stop Time Status Last Admin Dose Admin Haloperidol Lactate (Haldol Inj) 5 mg 1X ONCE IVP 12/07/20 05:30 12/07/20 05:31 DC 12/07/20 05:14 Diphenhydramine HCl (Benadryl) 50 mg 1X ONCE IVP 12/07/20 05:30 12/07/20 05:31 DC 12/07/20 05:14 Ringer's Solution 500 ml @ 1,000 mls/hr 1X ONCE IV 12/07/20 05:30 12/07/20 05:59 DC 12/07/20 05:13 Potassium Chloride/Sodium Chloride 1,000 ml @ 125 mls/hr Q8H IV 12/07/20 06:30 12/07/20 14:29 12/07/20 06:30 Midazolam HCl 100 ml @ 0 mls/hr CONT PRN IV SEE PROTOCOL 12/07/20 07:00 12/07/20 07:15 Magnesium Sulfate 100 ml @ 25 mls/hr 1X ONCE IV 12/07/20 07:30 12/07/20 11:29 12/07/20 08:47 Buspirone HCl (Buspar) 30 mg Q8H NG 12/07/20 08:00 12/09/20 00:01 12/07/20 08:50 Acetaminophen (Tylenol) 650 mg Q4H NG 12/07/20 08:00 12/07/20 08:50 Fentanyl Citrate 30 ml @ 0 mls/hr CONT PRN IV PER PROTOCOL. 12/07/20 08:00 12/07/20 09:07 Vecuronium [place] (Norcuron Bolus) 6 mg PRN Q1HR PRN IV SHIVERING 12/07/20 08:00 12/07/20 08:47 Potassium Chloride/Water 100 ml @ 100 mls/hr Q1H IV 12/07/20 09:00 12/07/20 12:59 12/07/20 09:46 Imaging: Imaging: CXRs Impression: 1. Interval placement right IJ central line with tip projecting over the right atrium. No pneumothorax. Impression: Intrarenal tube and enteric tube well-positioned. Head CT Impression: 1. No acute intracranial abnormality. PE: GEN: visual exam in ICU - prepped for IR procedure, intubated and sedated, several staff members/nursing in room A/P: A/P: N/v Hypokalemia, hypomagnesemia, leukocytosis V fib arrest H/o GERD, gastroparesis, C Diff CRC screen - reportedly normal in past S/p cholecystectomy Hepatic steatosis -- Continue support. Will review w/ Dr. Xavier. ARUN MILNER Dec 07, 2020 10:00
[2020-12-07] MEDS: PANTOPRAZOLE IV PUSH 40 MG VIAL. IVP SCH (10:26)
[2020-12-07] MEDS: POTASSIUM PHOS,M-BASIC-D-BASIC 10 MMOL in IV NORMAL SALINE 100ML 100 ML IV SCH ×4 (10:50→13:43)
[2020-12-07 10:54] LABS: BASO % 0 % (0-3); EOS % 0 % (0-3); HEMATOCRIT 39.5 % (36.0-47.0); HEMOGLOBIN 13.1 g/dL (12.0-15.5); LYMPH # 1.6 x10^3/uL (1.0-4.8); LYMPH % 6 % (24-48); MEAN CORPUSCULAR HEMOGLOBIN 32 pg (25-35); MEAN CORPUSCULAR HGB CONC 33 g/dL (31-37); MEAN CORPUSCULAR VOLUME 97 fL (79-100); MONO # 2.3 x10^3/uL (0.0-1.1); MONO % 9 % (0-9); NEUT # 22.6 x10^3/uL (1.8-7.7); NEUT % 85 % (31-73); PLATELET COUNT 264 x10^3/uL (140-400); RED BLOOD COUNT 4.06 x10^6/uL (3.50-5.40); RED CELL DISTRIBUTION WIDTH 19.2 % (11.5-14.5); WHITE BLOOD COUNT 26.6 x10^3/uL (4.0-11.0)
[2020-12-07 11:05] LABS: PROTHROMBIN TIME PATIENT 14.3 SEC (11.7-14.0)
[2020-12-07 11:09] LABS: CALCIUM 7.5 mg/dL (8.5-10.1); CREATININE 0.7 mg/dL (0.6-1.0); GFR 94.7; MAGNESIUM 3.9 mg/dL (1.8-2.4); PHOSPHORUS 2.2 mg/dL (2.6-4.7)
--- NOTE | 2020-12-07 11:47 | PDOC2 ---
REI PERSAUD INSTALLATION COORDINATOR 12/07/20 1147: CARDIAC CONSULT DATE OF CONSULT Date of Consult DATE: 12/07/20 TIME: 11:25 REASON FOR CONSULT Reason for Consult: AFIB arrest REFERRING PHYSICIAN Referring Physician: Dr. Alba SOURCE Source: Chart review HISTORY OF PRESENT ILLNESS HISTORY OF PRESENT ILLNESS This is a 35 yo female who presented with 2-3 days history of nausea/vomiting. HPI obtain from chart review as patient is intubated, sedated. Has been taking Reglan for gastroparesis. Also h/o Kong's esophagus for which she is on Nexium. Has not been able to keep food down for the last 2--3 days. S/o feeling weak and dizzy. Was given Haldol in ED for nausea. While in ED, patient was found to be unresponsive and cyanotic by passing RN. CODE BLUE was called. Patient's rhythm concerning for torsades and magnesium was started. Patient subsequently in V. fib and x2 separate unsynchronized defibrillated shocks at 200 J administered with eventual ROSC. Patient was subsequently intubated. Potassium and IVFs also administered. Per ED report, Patient last seen by RN approximately 5 minutes prior to CODE BLUE being called. EKG with RBBB and QT prolongation with QTc of 506. Mg 1.6 and K 2.5 upon arrival. PAST MEDICAL HISTORY Cardiovascular: Hyperlipidemia GI: GERD (Kong's esophagus ) Psych: Anxiety, Depression PAST SURGICAL HISTORY Past Surgical History: Cholecystectomy FAMILY HISTORY Family History: Cancer, Hypertension SOCIAL HISTORY Smoke: <1 pack per day ALCOHOL: none Drugs: Marijuana CURRENT MEDICATIONS CURRENT MEDICATIONS Current Medications Medications (Trade) Dose Ordered Sig/Kwaku Route PRN Reason Start Time Stop Time Status Last Admin Dose Admin Haloperidol Lactate (Haldol Inj) 5 mg 1X ONCE IVP 12/07/20 05:30 12/07/20 05:31 DC 12/07/20 05:14 Diphenhydramine HCl (Benadryl) 50 mg 1X ONCE IVP 12/07/20 05:30 12/07/20 05:31 DC 12/07/20 05:14 Ringer's Solution 500 ml @ 1,000 mls/hr 1X ONCE IV 12/07/20 05:30 12/07/20 05:59 DC 12/07/20 05:13 Potassium Chloride/Sodium Chloride 1,000 ml @ 125 mls/hr Q8H IV 12/07/20 06:30 12/07/20 14:29 12/07/20 06:30 Chlorhexidine Gluconate (Peridex) 15 ml BID MM 12/07/20 09:00 12/07/20 09:00 Midazolam HCl 100 ml @ 0 mls/hr CONT PRN IV SEE PROTOCOL 12/07/20 07:00 12/07/20 07:15 Magnesium Sulfate 100 ml @ 25 mls/hr 1X ONCE IV 12/07/20 07:30 12/07/20 11:29 12/07/20 08:47 Buspirone HCl (Buspar) 30 mg Q8H NG 12/07/20 08:00 12/09/20 00:01 12/07/20 08:50 Acetaminophen (Tylenol) 650 mg Q4H NG 12/07/20 08:00 12/07/20 08:50 Pantoprazole Sodium (PROTONIX VIAL for IV PUSH) 40 mg DAILY IVP 12/07/20 09:00 12/07/20 10:26 Fentanyl Citrate 30 ml @ 0 mls/hr CONT PRN IV PER PROTOCOL. 12/07/20 08:00 12/07/20 09:07 Vecuronium Delta (Norcuron Bolus) 6 mg PRN Q1HR PRN IV SHIVERING 12/07/20 08:00 12/07/20 08:47 Potassium Chloride/Water 100 ml @ 100 mls/hr Q1H IV 12/07/20 09:00 12/07/20 12:59 12/07/20 10:49 Potassium Phosphate 10 mmol/ Sodium Chloride 103.3333 ml @ 51.667 m... Q2H IV 12/07/20 10:00 12/07/20 13:59 12/07/20 10:50 ALLERGIES ALLERGIES: Coded Allergies: Corticosteroids (Glucocorticoids) (Verified Allergy, Severe, facial swelling, 05/25/20) Penicillins (Verified Allergy, Intermediate, hives, 05/25/20) I S O L A T I O N *CONTACT* (Verified Allergy, Unknown, 06/03/19) mrsa hydrocodone (Verified Adverse Reaction, Mild, Nausea, 05/25/20) ROS Review of System unobtainable PHYSICAL EXAM General: No acute distress HEENT: Atraumatic Lungs: Other (mechanical vent ) Heart: Regular rate (SR), Other (distant heart tones ) Abdomen: Soft Extremities: No edema, Normal pulses Skin: No significant lesion Neuro: Other (sedated ) MUSCULOSKELETAL: No deformity VITALS/I&O VITALS/I&O: Vital Signs Date Time Temp Pulse Resp B/P (MAP) Pulse Ox O2 Delivery O2 Flow Rate FiO2 12/07/20 09:45 100 Ventilator 12/07/20 09:37 14 35.0 12/07/20 07:11 119/80 (93) 12/07/20 06:59 116 12/07/20 04:55 98.0 98.0 LABS Lab: Laboratory Tests Test 12/07/20 05:01 12/07/20 05:22 12/07/20 06:00 12/07/20 09:27 Magnesium Level 1.6 mg/dL (1.8-2.4) L Troponin I Quantitative < 0.017 ng/mL (0.000-0.055) White Blood Count 15.1 x10^3/uL (4.0-11.0) H Red Blood Count 4.57 x10^6/uL (3.50-5.40) Hemoglobin 14.9 g/dL (12.0-15.5) Hematocrit 43.6 % (36.0-47.0) Mean Corpuscular Volume 95 fL (79-100) Mean Corpuscular Hemoglobin 33 pg (25-35) Mean Corpuscular Hemoglobin Concent 34 g/dL (31-37) Red Cell Distribution Width 19.2 % (11.5-14.5) H Platelet Count 338 x10^3/uL (140-400) Neutrophils (%) (Auto) 75 % (31-73) H Lymphocytes (%) (Auto) 16 % (24-48) L Monocytes (%) (Auto) 8 % (0-9) Eosinophils (%) (Auto) 0 % (0-3) Basophils (%) (Auto) 1 % (0-3) Neutrophils # (Auto) 11.2 x10^3/uL (1.8-7.7) H Lymphocytes # (Auto) 2.4 x10^3/uL (1.0-4.8) Monocytes # (Auto) 1.2 x10^3/uL (0.0-1.1) H Eosinophils # (Auto) 0.0 x10^3/uL (0.0-0.7) Basophils # (Auto) 0.1 x10^3/uL (0.0-0.2) Prothrombin Time 13.0 SEC (11.7-14.0) Prothrombin Time INR 1.0 (0.8-1.1) Activated Partial Thromboplast Time 25 SEC (24-38) D-Dimer (Francia) < 0.27 ug/mlFEU Sodium Level 138 mmol/L (136-145) Potassium Level 2.5 mmol/L (3.5-5.1) *L Chloride Level 95 mmol/L (98-107) L Carbon Dioxide Level 28 mmol/L (21-32) Anion Gap 15 (6-14) H Blood Urea Nitrogen 5 mg/dL (7-20) L Creatinine 1.0 mg/dL (0.6-1.0) Estimated GFR (Cockcroft-Gault) 62.7 BUN/Creatinine Ratio 5 (6-20) L Glucose Level 141 mg/dL (70-99) H Calcium Level 9.2 mg/dL (8.5-10.1) Phosphorus Level 1.8 mg/dL (2.6-4.7) L Total Bilirubin 1.2 mg/dL (0.2-1.0) H Aspartate Amino Transferase (AST) 67 U/L (15-37) H Alanine Aminotransferase (ALT) 32 U/L (14-59) Alkaline Phosphatase 87 U/L (46-116) Total Protein 7.9 g/dL (6.4-8.2) Albumin 3.5 g/dL (3.4-5.0) Albumin/Globulin Ratio 0.8 (1.0-1.7) L Triglycerides Level 118 mg/dL (0-150) Lipase 57 U/L (73-393) L Urine Collection Type Unknown Urine Color Wendy Urine Clarity Cloudy Urine pH 6.5 (<5.0-8.0) Urine Specific [place] 1.025 (1.000-1.030) Urine Protein >=300 mg/dL (NEG-TRACE) Urine Glucose (UA) 100 mg/dL (NEG) Urine Ketones (Stick) 40 mg/dL (NEG) Urine Blood Small (NEG) Urine Nitrite Negative (NEG) Urine Bilirubin Small (NEG) Urine Urobilinogen Dipstick 1.0 mg/dL (0.2 mg/dL) Urine Leukocyte Esterase Small (NEG) Urine RBC Occ /HPF (0-2) Urine WBC 5-10 /HPF (0-4) Urine Squamous Epithelial Cells Many /LPF Urine Bacteria Few /HPF (0-FEW) Glucose (Fingerstick) 164 mg/dL (70-99) H Test 12/07/20 09:32 12/07/20 09:38 12/07/20 10:40 Glucose (Fingerstick) 165 mg/dL (70-99) H O2 Saturation 99 % (92-99) Arterial Blood pH 7.46 (7.35-7.45) H Arterial Blood pCO2 at Patient Temp 29 mmHg (35-46) L Arterial Blood pO2 at Patient Temp 184 mmHg (85-108) H Arterial Blood HCO3 20 mmol/L (21-28) L Arterial Blood Base Excess -2 mmol/L (-3-3) FiO2 40 White Blood Count 26.6 x10^3/uL (4.0-11.0) H Red Blood Count 4.06 x10^6/uL (3.50-5.40) Hemoglobin 13.1 g/dL (12.0-15.5) Hematocrit 39.5 % (36.0-47.0) Mean Corpuscular Volume 97 fL (79-100) Mean Corpuscular Hemoglobin 32 pg (25-35) Mean Corpuscular Hemoglobin Concent 33 g/dL (31-37) Red Cell Distribution Width 19.2 % (11.5-14.5) H Platelet Count 264 x10^3/uL (140-400) Neutrophils (%) (Auto) 85 % (31-73) H Lymphocytes (%) (Auto) 6 % (24-48) L Monocytes (%) (Auto) 9 % (0-9) Eosinophils (%) (Auto) 0 % (0-3) Basophils (%) (Auto) 0 % (0-3) Neutrophils # (Auto) 22.6 x10^3/uL (1.8-7.7) H Lymphocytes # (Auto) 1.6 x10^3/uL (1.0-4.8) Monocytes # (Auto) 2.3 x10^3/uL (0.0-1.1) H Eosinophils # (Auto) 0.0 x10^3/uL (0.0-0.7) Basophils # (Auto) 0.0 x10^3/uL (0.0-0.2) Platelet Estimate Pending Sodium Level 139 mmol/L (136-145) Potassium Level 3.0 mmol/L (3.5-5.1) L Chloride Level 103 mmol/L (98-107) Carbon Dioxide Level 27 mmol/L (21-32) Anion Gap 9 (6-14) Blood Urea Nitrogen 4 mg/dL (7-20) L Creatinine 0.7 mg/dL (0.6-1.0) Estimated GFR (Cockcroft-Gault) 94.7 Glucose Level 145 mg/dL (70-99) H Calcium Level 7.5 mg/dL (8.5-10.1) L Phosphorus Level 2.2 mg/dL (2.6-4.7) L Magnesium Level 3.9 mg/dL (1.8-2.4) H Laboratory Tests 12/07/20 05:22 12/07/20 10:40 Laboratory Tests 12/07/20 05:22 12/07/20 10:40 ASSESSMENT/PLAN ASSESSMENT/PLAN 1. Nausea/vomiting, gastroparesis; as per GI 2. VFIB arrest in setting of significant electrolyte abnormalities and QT prolongation. Approximately 10 mins prior to ROSC. No further arrhythmias noted on tele. hypothermia protocol initiated 3. Severe hypokalemia, hypomagnesemia; replacement ongoing 4. Acute respiratory failure secondary to cardiac arrest; s/p intubation 5. Leukocytosis 6. Anxiety, depression Recommendations Ongoing electrolyte replacement Echo to assess LV systolic function Given VF arrest, will rule out ischemic disease with left heart catheterization Supportive care TANIA HUMPHREY MD 12/07/20 6066: CARDIAC CONSULT ASSESSMENT/PLAN ASSESSMENT/PLAN Patient seen and evaluated. I agree with our nurse practitioner's assessment and plan. Nausea/vomiting, gastroparesis; as per GI VFIB arrest in setting of significant electrolyte abnormalities and QT prolongation. Approximately 10 mins prior to ROSC. No further arrhythmias noted on tele. hypothermia protocol initiated. After replacement potassium still at 3.0. Will defer cardiac catheterization at this time. Discussed with the primary and the pulmonary services. Echo shows normal LV systolic function and no significant arrhythmias. Severe hypokalemia, hypomagnesemia; replacement ongoing Acute respiratory failure secondary to cardiac arrest; s/p intubation. Followed by pulmonary. REI PERSAUD APRN Dec 07, 2020 11:47 TANIA HUMPHREY MD Dec 07, 2020 17:09
[2020-12-07] MEDS: POTASSIUM CHLORIDE 20MEQ 100 ML IV SCH ×3 (12:00→14:00)
[2020-12-07] MEDS ORDERED: AMIODARONE 150 MG/3 ML VIAL ONE (12:00)
[2020-12-07] MEDS ORDERED: EPINEPHrine SYRINGE 1 MG/10 ML SYRINGE ONE (12:00)
[2020-12-07] MEDS ORDERED: MAGNESIUM SULFATE PREMIX 1 GM/100 ML BAG. IV ONE (12:00)
[2020-12-07] MEDS ORDERED: SODIUM BICARB ADULT 8.4% 50 MEQ/50 ML DISP.SYRIN. ONE (12:00)
[2020-12-07] MEDS: PROPOFOL 100 ML IV PRN ×2 (12:07→20:31)
--- NOTE | 2020-12-07 12:13 | EKG ---
[facility] [address] [place] [address] Test Date: 2020-12-07 Test Time: 12:10:30 Pat Name: GENEVIEVE ALANIZ Department: Room: 109 1 Gender: F Foil Spooler: SUSANNE : 1985 Requested By: ALEJANDRA GALAVIZ Order Number: [id number] Reading MD: Shahzad Diaz MD Measurements Intervals [place] Rate: 70 P: 0 NV: 138 QRS: -37 QRSD: 80 T: -31 QT: 496 QTc: 539 Interpretive Statements SINUS RHYTHM NON-SPECIFIC ST/T CHANGES Electronically Signed On 12-08-2020 10:13:58 CDT by Shahzad Diaz MD
[2020-12-07 12:38] LABS: % BANDS 4 % (0-9); % LYMPHS 7 % (24-48); % MONOS 2 % (0-10); % SEGS 87 % (35-66); PLT ESTIMATE ADEQUATE (ADEQUATE)
[2020-12-07 12:39] LABS: ANISOCYTOSIS PRESENT
--- NOTE | 2020-12-07 13:36 | NUR ---
Have reviewed and agree with documentation completed by staff internist office based only and made changes as needed
[2020-12-07] MEDS: POLYVINYL ALCOHOL 1.4% OPHTH SOLUTION 15ML BOTTLE. OU SCH ×2 (13:45→17:25)
[2020-12-07] MEDS: HEPARIN for SUB-Q USE 5,000 UNIT/ML VIAL. SQ SCH ×2 (13:51→20:29)
--- NOTE | 2020-12-07 14:13 | RAD ---
Procedure: Ultrasound-guided placement of right internal jugular central venous catheter12/07/2020 12:09 PM Clinical Indication: POST CODE Discussion: The risks and benefits of the procedure were discussed the patient and/or their senior customer service representative. Informed consent was obtained. A timeout procedure was performed. All elements of maximal sterile barrier technique including the use of a cap, mask, sterile gown, sterile gloves, large sterile sheet, appropriate hand hygiene, and 2% chlorhexidine for cutaneous antisepsis (or acceptable alternative antiseptic per current guidelines) were followed for this procedure. The patient was prepped and draped in the usual sterile fashion. Ultrasound interrogation of the right neck revealed patency and compressibility of the right internal jugular vein. A 21-gauge micropuncture was then used to gain access to this vein under ultrasound guidance. A hard copy ultrasound image was recorded. A guidewire was advanced centrally. 5 Spanish sheath was placed. Over a wire following dilatation, a triple-lumen central venous catheter was advanced centrally. Catheter was found to flush and aspirate normally. Follow-up chest radiograph demonstrates tip at the cavoatrial junction. Catheter secured in place and a sterile dressing was applied. No immediate complications were identified. Impression: Successful ultrasound-guided placement of right internal jugular triple-lumen central venous catheter
--- NOTE | 2020-12-07 14:59 | NUR ---
SS following for discharge planning. SS reviewed pt chart and discussed with pt RN. Pt is from home and is currently on the vent at 35%. Pt CODED in the ER. Pt on hypothermia protocol. Pt on Fentanyl, versed, and propofol. Electrolytes being replaced. Not stable. SS will continue to follow for discharge planning.
--- NOTE | 2020-12-07 15:19 | NUR ---
Admission Note: Patient arrived on unit, transferred to bed at 0800. When placing [place] pads on patient for hypothermia, patient severely postured with upper and lower extremities and back. Had to administer paralytics for patient to sync with vent. Father updated on daughter's condition.
--- NOTE | 2020-12-07 16:53 | CARD ---
MR#: [id number] Date of Study: 12/07/2020 Ordering Physician: TANIA HUMPHREY, Referring Physician: TANIA HUMPHREY, Tech: Marlyn Carbajal, [facility] APPROVED REPORT EXAM: Two-dimensional and M-mode echocardiogram with Doppler and color Doppler. Other Information Quality : AverageHR: 71bpm INDICATION Arrhythmia Ventricular Tachycardia RISK FACTORS Hyperlipidemia 2D DIMENSIONS RVDd2.0 (2.9-3.5cm)Left Atrium(2D)2.2 (1.6-4.0cm) IVSd0.8 (0.7-1.1cm)Aortic Root(2D)3.1 (2.0-3.7cm) LVDd4.3 (3.9-5.9cm)LVOT Diameter2.1 (1.8-2.4cm) PWd0.8 (0.7-1.1cm)LVDs2.9 (2.5-4.0cm) FS (%) 33.8 %SV53.5 ml LVEF(%)62.9 (>50%) Aortic Valve AoV Peak Lamont.76.2cm/sAoV VTI20.4cm AO Peak GR.2.3mmHgLVOT VTI 15.86cm AO Mean GR.2mmHg Mitral Valve MV E Oyqdjhgo09.7cm/sMV DECEL [id number] MV A Ttuklpvu10.7cm/sE/A Ratio0.9 TDI Lateral E' P. V6.05cm/sMedial E' P. V6.82cm/s E/Lateral E'8.7E/Medial E'7.7 Pulmonary Valve PV Peak Ncwotwab10.6cm/s Tricuspid Valve TR P. Hflfcviz616sg/sRAP PHECEREP7lhJe TR Peak Gr.63ihSsOUDA86vsLj Pulmonary Vein S1 Auzbngqi50.1cm/sS2 Qlrwoaoj69.14cm/s D2 Uldgteah61.1cm/s LEFT VENTRICLE The left ventricle is normal size. There is normal left ventricular wall thickness. The left ventricu lar systolic function is normal. The Ejection Fraction is 55%. There is normal LV segmental wall christofer on. The left ventricular diastolic function and filling is normal for age. RIGHT VENTRICLE The right ventricle is normal size. There is normal right ventricular wall thickness. The right ventr icular systolic function is normal. ATRIA The left atrium size is normal. The right atrium size is normal. The interatrial septum is intact wit h no evidence for an atrial septal defect or patent foramen ovale as noted on 2-D or Doppler imaging. AORTIC VALVE The aortic valve is normal in structure and function. Doppler and Color Flow revealed no significant aortic regurgitation. There is no significant aortic valvular stenosis. Calculated aortic valve area is 2.60 cm2 with maximum pressure gradient of 3 mmHg and mean pressure gradient of 2 mmHg. MITRAL VALVE The mitral valve is normal in structure and function. There is no evidence of mitral valve prolapse. There is no mitral valve stenosis. Doppler and Color-flow revealed trace mitral regurgitation. TRICUSPID VALVE The tricuspid valve is normal in structure and function. Doppler and Color Flow revealed trace tricus pid regurgitation with an estimated PAP of 22 mmHg. There is no tricuspid valve stenosis. PULMONIC VALVE The pulmonic valve is not well visualized. Doppler and Color Flow revealed trace pulmonic valvular re gurgitation. GREAT VESSELS The aortic root is normal in size. The IVC is normal in size and collapses >50% with inspiration. PERICARDIAL EFFUSION There is no evidence of significant pericardial effusion. Critical Notification Critical Value: No <Conclusion> The left ventricular systolic function is normal. The Ejection Fraction is 55%. There is normal LV segmental wall motion. Trace mitral regurgitation. Trace tricuspid regurgitation with an estimated PAP of 22 mmHg. There is no evidence of significant pericardial effusion. Signed by : Mal Garcia, Electronically Approved : 12/07/2020 16:53:11
[2020-12-07 17:23] LABS: BASO # 0.1 x10^3/uL (0.0-0.2); BASO % 1 % (0-3); EOS % 0 % (0-3); HEMATOCRIT 38.9 % (36.0-47.0); HEMOGLOBIN 13.2 g/dL (12.0-15.5); LYMPH # 2.5 x10^3/uL (1.0-4.8); LYMPH % 11 % (24-48); MEAN CORPUSCULAR HEMOGLOBIN 33 pg (25-35); MEAN CORPUSCULAR HGB CONC 34 g/dL (31-37); MEAN CORPUSCULAR VOLUME 97 fL (79-100); MONO # 2.1 x10^3/uL (0.0-1.1); MONO % 9 % (0-9); NEUT # 17.6 x10^3/uL (1.8-7.7); NEUT % 79 % (31-73); PLATELET COUNT 260 x10^3/uL (140-400); RED BLOOD COUNT 4.02 x10^6/uL (3.50-5.40); RED CELL DISTRIBUTION WIDTH 18.9 % (11.5-14.5); WHITE BLOOD COUNT 22.4 x10^3/uL (4.0-11.0)
[2020-12-07] MEDS: IV NORMAL SALINE 1000ML BAG 1,000 ML IV SCH (17:30)
[2020-12-07 17:32] LABS: PROTHROMBIN TIME PATIENT 13.9 SEC (11.7-14.0)
[2020-12-07 17:35] LABS: % LYMPHS 9 % (24-48); % MONOS 7 % (0-10); % SEGS 84 % (35-66); CALCIUM 6.9 mg/dL (8.5-10.1); CREATININE 0.8 mg/dL (0.6-1.0); GFR 81.2; MAGNESIUM 3.3 mg/dL (1.8-2.4); PHOSPHORUS 5.7 mg/dL (2.6-4.7); POTASSIUM 3.6 mmol/L (3.5-5.1)
[2020-12-07 17:36] LABS: ANISOCYTOSIS SLIGHT; PLT ESTIMATE ADEQUATE (ADEQUATE)
[2020-12-07 23:06] LABS: BASO # 0.1 x10^3/uL (0.0-0.2); BASO % 0 % (0-3); EOS % 0 % (0-3); HEMATOCRIT 35.3 % (36.0-47.0); LYMPH # 3.2 x10^3/uL (1.0-4.8); LYMPH % 21 % (24-48); MEAN CORPUSCULAR HEMOGLOBIN 33 pg (25-35); MEAN CORPUSCULAR HGB CONC 34 g/dL (31-37); MEAN CORPUSCULAR VOLUME 97 fL (79-100); MONO # 1.4 x10^3/uL (0.0-1.1); MONO % 9 % (0-9); NEUT # 10.8 x10^3/uL (1.8-7.7); NEUT % 70 % (31-73); PLATELET COUNT 226 x10^3/uL (140-400); RED BLOOD COUNT 3.65 x10^6/uL (3.50-5.40); RED CELL DISTRIBUTION WIDTH 18.8 % (11.5-14.5); WHITE BLOOD COUNT 15.6 x10^3/uL (4.0-11.0)
[2020-12-07 23:16] LABS: PROTHROMBIN TIME PATIENT 14.3 SEC (11.7-14.0)
[2020-12-07 23:20] LABS: CALCIUM 6.9 mg/dL (8.5-10.1); CREATININE 0.7 mg/dL (0.6-1.0); GFR 94.7; PHOSPHORUS 3.5 mg/dL (2.6-4.7)
[2020-12-07 23:22] LABS: POTASSIUM 2.7 mmol/L (3.5-5.1)
[2020-12-07] MEDS ORDERED: POTASSIUM CHLORIDE 20MEQ 100 ML IV ONE (23:30)
[2020-12-08] VITALS (38 sets, daily range): BP systolic 75–146; BP diastolic 42–88
[2020-12-08] MEDS: ACETAMINOPHEN 650 MG/20.3 ML SOLUTION. NG SCH ×6 (00:42→20:00)
[2020-12-08] MEDS: busPIRone 10 MG TABLET. NG SCH ×3 (00:42→16:18)
[2020-12-08] MEDS: PROPOFOL 100 ML IV PRN ×2 (04:24→13:12)
[2020-12-08 05:36] LABS: BASO % 0 % (0-3); EOS # 0.1 x10^3/uL (0.0-0.7); EOS % 0 % (0-3); HEMATOCRIT 36.6 % (36.0-47.0); HEMOGLOBIN 12.2 g/dL (12.0-15.5); LYMPH # 2.5 x10^3/uL (1.0-4.8); LYMPH % 20 % (24-48); MEAN CORPUSCULAR HEMOGLOBIN 33 pg (25-35); MEAN CORPUSCULAR HGB CONC 33 g/dL (31-37); MEAN CORPUSCULAR VOLUME 98 fL (79-100); MONO # 1.5 x10^3/uL (0.0-1.1); MONO % 12 % (0-9); NEUT # 8.4 x10^3/uL (1.8-7.7); NEUT % 67 % (31-73); PLATELET COUNT 208 x10^3/uL (140-400); RED BLOOD COUNT 3.74 x10^6/uL (3.50-5.40); RED CELL DISTRIBUTION WIDTH 18.9 % (11.5-14.5); WHITE BLOOD COUNT 12.5 x10^3/uL (4.0-11.0)
[2020-12-08 05:45] LABS: PROTHROMBIN TIME PATIENT 13.3 SEC (11.7-14.0)
[2020-12-08 06:15] LABS: CALCIUM 6.7 mg/dL (8.5-10.1); GFR 62.7; MAGNESIUM 2.7 mg/dL (1.8-2.4); PHOSPHORUS 3.5 mg/dL (2.6-4.7); POTASSIUM 3.1 mmol/L (3.5-5.1)
[2020-12-08 08:03] LABS: BASE EXCESS ABG -3 mmol/L (-3-3); HCO3 ABG 22 mmol/L (21-28); PCO2 ABG 40 mmHg (35-46); PO2 ABG 148 mmHg (85-108); SAT O2 ABG 99 % (92-99)
[2020-12-08] MEDS: PANTOPRAZOLE IV PUSH 40 MG VIAL. IVP SCH (08:19)
[2020-12-08] MEDS: HEPARIN for SUB-Q USE 5,000 UNIT/ML VIAL. SQ SCH ×2 (08:20→21:11)
--- NOTE | 2020-12-08 08:36 | PDOC ---
PULMONARY PROGRESS NOTES DATE: 12/08/20 TIME: 08:36 Subjective Patient currently undergoing hypothermic protocol, We warming initiated at approximately 9 AM Currently sedated Vitals Vital Signs Date Time Temp Pulse Resp B/P (MAP) Pulse Ox O2 Delivery O2 Flow Rate FiO2 12/08/20 08:19 100 Ventilator 12/08/20 08:00 57 14 81/47 12/08/20 06:00 89.9 12/08/20 00:58 35.0 Lungs: Clear Cardiovascular: S1, S2 Abdomen: Soft Extremities: Other (No significant edema) Skin: Warm Labs Laboratory Tests Test 12/07/20 05:01 12/07/20 05:22 12/07/20 06:00 12/07/20 09:27 Magnesium Level 1.6 mg/dL (1.8-2.4) Troponin I Quantitative < 0.017 ng/mL (0.000-0.055) White Blood Count 15.1 x10^3/uL (4.0-11.0) Red Blood Count 4.57 x10^6/uL (3.50-5.40) Hemoglobin 14.9 g/dL (12.0-15.5) Hematocrit 43.6 % (36.0-47.0) Mean Corpuscular Volume 95 fL (79-100) Mean Corpuscular Hemoglobin 33 pg (25-35) Mean Corpuscular Hemoglobin Concent 34 g/dL (31-37) Red Cell Distribution Width 19.2 % (11.5-14.5) Platelet Count 338 x10^3/uL (140-400) Neutrophils (%) (Auto) 75 % (31-73) Lymphocytes (%) (Auto) 16 % (24-48) Monocytes (%) (Auto) 8 % (0-9) Eosinophils (%) (Auto) 0 % (0-3) Basophils (%) (Auto) 1 % (0-3) Neutrophils # (Auto) 11.2 x10^3/uL (1.8-7.7) Lymphocytes # (Auto) 2.4 x10^3/uL (1.0-4.8) Monocytes # (Auto) 1.2 x10^3/uL (0.0-1.1) Eosinophils # (Auto) 0.0 x10^3/uL (0.0-0.7) Basophils # (Auto) 0.1 x10^3/uL (0.0-0.2) Prothrombin Time 13.0 SEC (11.7-14.0) Prothromb Time International Ratio 1.0 (0.8-1.1) Activated Partial Thromboplast Time 25 SEC (24-38) D-Dimer (Francia) < 0.27 ug/mlFEU Sodium Level 138 mmol/L (136-145) Potassium Level 2.5 mmol/L (3.5-5.1) Chloride Level 95 mmol/L (98-107) Carbon Dioxide Level 28 mmol/L (21-32) Anion Gap 15 (6-14) Blood Urea Nitrogen 5 mg/dL (7-20) Creatinine 1.0 mg/dL (0.6-1.0) Estimated GFR (Cockcroft-Gault) 62.7 BUN/Creatinine Ratio 5 (6-20) Glucose Level 141 mg/dL (70-99) Calcium Level 9.2 mg/dL (8.5-10.1) Phosphorus Level 1.8 mg/dL (2.6-4.7) Total Bilirubin 1.2 mg/dL (0.2-1.0) Aspartate Amino Transf (AST/SGOT) 67 U/L (15-37) Alanine Aminotransferase (ALT/SGPT) 32 U/L (14-59) Alkaline Phosphatase 87 U/L (46-116) Total Protein 7.9 g/dL (6.4-8.2) Albumin 3.5 g/dL (3.4-5.0) Albumin/Globulin Ratio 0.8 (1.0-1.7) Triglycerides Level 118 mg/dL (0-150) Lipase 57 U/L (73-393) Urine Collection Type Unknown Urine Color Wendy Urine Clarity Cloudy Urine pH 6.5 (<5.0-8.0) Urine Specific [place] 1.025 (1.000-1.030) Urine Protein >=300 mg/dL (NEG-TRACE) Urine Glucose (UA) 100 mg/dL (NEG) Urine Ketones (Stick) 40 mg/dL (NEG) Urine Blood Small (NEG) Urine Nitrite Negative (NEG) Urine Bilirubin Small (NEG) Urine Urobilinogen Dipstick 1.0 mg/dL (0.2 mg/dL) Urine Leukocyte Esterase Small (NEG) Urine RBC Occ /HPF (0-2) Urine WBC 5-10 /HPF (0-4) Urine Squamous Epithelial Cells Many /LPF Urine Bacteria Few /HPF (0-FEW) Glucose (Fingerstick) 164 mg/dL (70-99) Test 12/07/20 09:32 12/07/20 09:38 12/07/20 10:40 12/07/20 13:15 Glucose (Fingerstick) 165 mg/dL (70-99) 122 mg/dL (70-99) O2 Saturation 99 % (92-99) Arterial Blood pH 7.46 (7.35-7.45) Arterial Blood pCO2 at Patient Temp 29 mmHg (35-46) Arterial Blood pO2 at Patient Temp 184 mmHg (85-108) Arterial Blood HCO3 20 mmol/L (21-28) Arterial Blood Base Excess -2 mmol/L (-3-3) FiO2 40 White Blood Count 26.6 x10^3/uL (4.0-11.0) Red Blood Count 4.06 x10^6/uL (3.50-5.40) Hemoglobin 13.1 g/dL (12.0-15.5) Hematocrit 39.5 % (36.0-47.0) Mean Corpuscular Volume 97 fL (79-100) Mean Corpuscular Hemoglobin 32 pg (25-35) Mean Corpuscular Hemoglobin Concent 33 g/dL (31-37) Red Cell Distribution Width 19.2 % (11.5-14.5) Platelet Count 264 x10^3/uL (140-400) Neutrophils (%) (Auto) 85 % (31-73) Lymphocytes (%) (Auto) 6 % (24-48) Monocytes (%) (Auto) 9 % (0-9) Eosinophils (%) (Auto) 0 % (0-3) Basophils (%) (Auto) 0 % (0-3) Neutrophils # (Auto) 22.6 x10^3/uL (1.8-7.7) Lymphocytes # (Auto) 1.6 x10^3/uL (1.0-4.8) Monocytes # (Auto) 2.3 x10^3/uL (0.0-1.1) Eosinophils # (Auto) 0.0 x10^3/uL (0.0-0.7) Basophils # (Auto) 0.0 x10^3/uL (0.0-0.2) Segmented Neutrophils % 87 % (35-66) Band Neutrophils % 4 % (0-9) Lymphocytes % 7 % (24-48) Monocytes % 2 % (0-10) Platelet Estimate Adequate (ADEQUATE) Anisocytosis Present Prothrombin Time 14.3 SEC (11.7-14.0) Prothromb Time International Ratio 1.2 (0.8-1.1) Activated Partial Thromboplast Time 25 SEC (24-38) Sodium Level 139 mmol/L (136-145) Potassium Level 3.0 mmol/L (3.5-5.1) Chloride Level 103 mmol/L (98-107) Carbon Dioxide Level 27 mmol/L (21-32) Anion Gap 9 (6-14) Blood Urea Nitrogen 4 mg/dL (7-20) Creatinine 0.7 mg/dL (0.6-1.0) Estimated GFR (Cockcroft-Gault) 94.7 Glucose Level 145 mg/dL (70-99) Calcium Level 7.5 mg/dL (8.5-10.1) Phosphorus Level 2.2 mg/dL (2.6-4.7) Magnesium Level 3.9 mg/dL (1.8-2.4) Test 12/07/20 15:08 12/07/20 16:16 12/07/20 17:00 12/07/20 21:09 Glucose (Fingerstick) 124 mg/dL (70-99) 131 mg/dL (70-99) 112 mg/dL (70-99) White Blood Count 22.4 x10^3/uL (4.0-11.0) Red Blood Count 4.02 x10^6/uL (3.50-5.40) Hemoglobin 13.2 g/dL (12.0-15.5) Hematocrit 38.9 % (36.0-47.0) Mean Corpuscular Volume 97 fL (79-100) Mean Corpuscular Hemoglobin 33 pg (25-35) Mean Corpuscular Hemoglobin Concent 34 g/dL (31-37) Red Cell Distribution Width 18.9 % (11.5-14.5) Platelet Count 260 x10^3/uL (140-400) Neutrophils (%) (Auto) 79 % (31-73) Lymphocytes (%) (Auto) 11 % (24-48) Monocytes (%) (Auto) 9 % (0-9) Eosinophils (%) (Auto) 0 % (0-3) Basophils (%) (Auto) 1 % (0-3) Neutrophils # (Auto) 17.6 x10^3/uL (1.8-7.7) Lymphocytes # (Auto) 2.5 x10^3/uL (1.0-4.8) Monocytes # (Auto) 2.1 x10^3/uL (0.0-1.1) Eosinophils # (Auto) 0.0 x10^3/uL (0.0-0.7) Basophils # (Auto) 0.1 x10^3/uL (0.0-0.2) Segmented Neutrophils % 84 % (35-66) Lymphocytes % 9 % (24-48) Monocytes % 7 % (0-10) Platelet Estimate Adequate (ADEQUATE) Anisocytosis Slight Prothrombin Time 13.9 SEC (11.7-14.0) Prothromb Time International Ratio 1.1 (0.8-1.1) Activated Partial Thromboplast Time 30 SEC (24-38) Sodium Level 142 mmol/L (136-145) Potassium Level 3.6 mmol/L (3.5-5.1) Chloride Level 106 mmol/L (98-107) Carbon Dioxide Level 25 mmol/L (21-32) Anion Gap 11 (6-14) Blood Urea Nitrogen 4 mg/dL (7-20) Creatinine 0.8 mg/dL (0.6-1.0) Estimated GFR (Cockcroft-Gault) 81.2 Glucose Level 113 mg/dL (70-99) Calcium Level 6.9 mg/dL (8.5-10.1) Phosphorus Level 5.7 mg/dL (2.6-4.7) Magnesium Level 3.3 mg/dL (1.8-2.4) Test 12/07/20 22:53 12/08/20 04:13 12/08/20 05:20 12/08/20 07:22 White Blood Count 15.6 x10^3/uL (4.0-11.0) 12.5 x10^3/uL (4.0-11.0) Red Blood Count 3.65 x10^6/uL (3.50-5.40) 3.74 x10^6/uL (3.50-5.40) Hemoglobin 12.0 g/dL (12.0-15.5) 12.2 g/dL (12.0-15.5) Hematocrit 35.3 % (36.0-47.0) 36.6 % (36.0-47.0) Mean Corpuscular Volume 97 fL (79-100) 98 fL (79-100) Mean Corpuscular Hemoglobin 33 pg (25-35) 33 pg (25-35) Mean Corpuscular Hemoglobin Concent 34 g/dL (31-37) 33 g/dL (31-37) Red Cell Distribution Width 18.8 % (11.5-14.5) 18.9 % (11.5-14.5) Platelet Count 226 x10^3/uL (140-400) 208 x10^3/uL (140-400) Neutrophils (%) (Auto) 70 % (31-73) 67 % (31-73) Lymphocytes (%) (Auto) 21 % (24-48) 20 % (24-48) Monocytes (%) (Auto) 9 % (0-9) 12 % (0-9) Eosinophils (%) (Auto) 0 % (0-3) 0 % (0-3) Basophils (%) (Auto) 0 % (0-3) 0 % (0-3) Neutrophils # (Auto) 10.8 x10^3/uL (1.8-7.7) 8.4 x10^3/uL (1.8-7.7) Lymphocytes # (Auto) 3.2 x10^3/uL (1.0-4.8) 2.5 x10^3/uL (1.0-4.8) Monocytes # (Auto) 1.4 x10^3/uL (0.0-1.1) 1.5 x10^3/uL (0.0-1.1) Eosinophils # (Auto) 0.0 x10^3/uL (0.0-0.7) 0.1 x10^3/uL (0.0-0.7) Basophils # (Auto) 0.1 x10^3/uL (0.0-0.2) 0.0 x10^3/uL (0.0-0.2) Prothrombin Time 14.3 SEC (11.7-14.0) 13.3 SEC (11.7-14.0) Prothromb Time International Ratio 1.2 (0.8-1.1) 1.1 (0.8-1.1) Activated Partial Thromboplast Time 43 SEC (24-38) 42 SEC (24-38) Sodium Level 144 mmol/L (136-145) 144 mmol/L (136-145) Potassium Level 2.7 mmol/L (3.5-5.1) 3.1 mmol/L (3.5-5.1) Chloride Level 108 mmol/L (98-107) 110 mmol/L (98-107) Carbon Dioxide Level 26 mmol/L (21-32) 24 mmol/L (21-32) Anion Gap 10 (6-14) 10 (6-14) Blood Urea Nitrogen 4 mg/dL (7-20) 5 mg/dL (7-20) Creatinine 0.7 mg/dL (0.6-1.0) 1.0 mg/dL (0.6-1.0) Estimated GFR (Cockcroft-Gault) 94.7 62.7 Glucose Level 99 mg/dL (70-99) 92 mg/dL (70-99) Calcium Level 6.9 mg/dL (8.5-10.1) 6.7 mg/dL (8.5-10.1) Phosphorus Level 3.5 mg/dL (2.6-4.7) 3.5 mg/dL (2.6-4.7) Magnesium Level 3.0 mg/dL (1.8-2.4) 2.7 mg/dL (1.8-2.4) Glucose (Fingerstick) 83 mg/dL (70-99) 88 mg/dL (70-99) Laboratory Tests Test 12/07/20 09:27 12/07/20 09:32 12/07/20 09:38 12/07/20 10:40 Glucose (Fingerstick) 164 mg/dL (70-99) 165 mg/dL (70-99) O2 Saturation 99 % (92-99) Arterial Blood pH 7.46 (7.35-7.45) Arterial Blood pCO2 at Patient Temp 29 mmHg (35-46) Arterial Blood pO2 at Patient Temp 184 mmHg (85-108) Arterial Blood HCO3 20 mmol/L (21-28) Arterial Blood Base Excess -2 mmol/L (-3-3) FiO2 40 White Blood Count 26.6 x10^3/uL (4.0-11.0) Red Blood Count 4.06 x10^6/uL (3.50-5.40) Hemoglobin 13.1 g/dL (12.0-15.5) Hematocrit 39.5 % (36.0-47.0) Mean Corpuscular Volume 97 fL (79-100) Mean Corpuscular Hemoglobin 32 pg (25-35) Mean Corpuscular Hemoglobin Concent 33 g/dL (31-37) Red Cell Distribution Width 19.2 % (11.5-14.5) Platelet Count 264 x10^3/uL (140-400) Neutrophils (%) (Auto) 85 % (31-73) Lymphocytes (%) (Auto) 6 % (24-48) Monocytes (%) (Auto) 9 % (0-9) Eosinophils (%) (Auto) 0 % (0-3) Basophils (%) (Auto) 0 % (0-3) Neutrophils # (Auto) 22.6 x10^3/uL (1.8-7.7) Lymphocytes # (Auto) 1.6 x10^3/uL (1.0-4.8) Monocytes # (Auto) 2.3 x10^3/uL (0.0-1.1) Eosinophils # (Auto) 0.0 x10^3/uL (0.0-0.7) Basophils # (Auto) 0.0 x10^3/uL (0.0-0.2) Segmented Neutrophils % 87 % (35-66) Band Neutrophils % 4 % (0-9) Lymphocytes % 7 % (24-48) Monocytes % 2 % (0-10) Platelet Estimate Adequate (ADEQUATE) Anisocytosis Present Prothrombin Time 14.3 SEC (11.7-14.0) Prothromb Time International Ratio 1.2 (0.8-1.1) Activated Partial Thromboplast Time 25 SEC (24-38) Sodium Level 139 mmol/L (136-145) Potassium Level 3.0 mmol/L (3.5-5.1) Chloride Level 103 mmol/L (98-107) Carbon Dioxide Level 27 mmol/L (21-32) Anion Gap 9 (6-14) Blood Urea Nitrogen 4 mg/dL (7-20) Creatinine 0.7 mg/dL (0.6-1.0) Estimated GFR (Cockcroft-Gault) 94.7 Glucose Level 145 mg/dL (70-99) Calcium Level 7.5 mg/dL (8.5-10.1) Phosphorus Level 2.2 mg/dL (2.6-4.7) Magnesium Level 3.9 mg/dL (1.8-2.4) Test 12/07/20 13:15 12/07/20 15:08 12/07/20 16:16 12/07/20 17:00 Glucose (Fingerstick) 122 mg/dL (70-99) 124 mg/dL (70-99) 131 mg/dL (70-99) White Blood Count 22.4 x10^3/uL (4.0-11.0) Red Blood Count 4.02 x10^6/uL (3.50-5.40) Hemoglobin 13.2 g/dL (12.0-15.5) Hematocrit 38.9 % (36.0-47.0) Mean Corpuscular Volume 97 fL (79-100) Mean Corpuscular Hemoglobin 33 pg (25-35) Mean Corpuscular Hemoglobin Concent 34 g/dL (31-37) Red Cell Distribution Width 18.9 % (11.5-14.5) Platelet Count 260 x10^3/uL (140-400) Neutrophils (%) (Auto) 79 % (31-73) Lymphocytes (%) (Auto) 11 % (24-48) Monocytes (%) (Auto) 9 % (0-9) Eosinophils (%) (Auto) 0 % (0-3) Basophils (%) (Auto) 1 % (0-3) Neutrophils # (Auto) 17.6 x10^3/uL (1.8-7.7) Lymphocytes # (Auto) 2.5 x10^3/uL (1.0-4.8) Monocytes # (Auto) 2.1 x10^3/uL (0.0-1.1) Eosinophils # (Auto) 0.0 x10^3/uL (0.0-0.7) Basophils # (Auto) 0.1 x10^3/uL (0.0-0.2) Segmented Neutrophils % 84 % (35-66) Lymphocytes % 9 % (24-48) Monocytes % 7 % (0-10) Platelet Estimate Adequate (ADEQUATE) Anisocytosis Slight Prothrombin Time 13.9 SEC (11.7-14.0) Prothromb Time International Ratio 1.1 (0.8-1.1) Activated Partial Thromboplast Time 30 SEC (24-38) Sodium Level 142 mmol/L (136-145) Potassium Level 3.6 mmol/L (3.5-5.1) Chloride Level 106 mmol/L (98-107) Carbon Dioxide Level 25 mmol/L (21-32) Anion Gap 11 (6-14) Blood Urea Nitrogen 4 mg/dL (7-20) Creatinine 0.8 mg/dL (0.6-1.0) Estimated GFR (Cockcroft-Gault) 81.2 Glucose Level 113 mg/dL (70-99) Calcium Level 6.9 mg/dL (8.5-10.1) Phosphorus Level 5.7 mg/dL (2.6-4.7) Magnesium Level 3.3 mg/dL (1.8-2.4) Test 12/07/20 21:09 12/07/20 22:53 12/08/20 04:13 12/08/20 05:20 Glucose (Fingerstick) 112 mg/dL (70-99) 83 mg/dL (70-99) White Blood Count 15.6 x10^3/uL (4.0-11.0) 12.5 x10^3/uL (4.0-11.0) Red Blood Count 3.65 x10^6/uL (3.50-5.40) 3.74 x10^6/uL (3.50-5.40) Hemoglobin 12.0 g/dL (12.0-15.5) 12.2 g/dL (12.0-15.5) Hematocrit 35.3 % (36.0-47.0) 36.6 % (36.0-47.0) Mean Corpuscular Volume 97 fL (79-100) 98 fL (79-100) Mean Corpuscular Hemoglobin 33 pg (25-35) 33 pg (25-35) Mean Corpuscular Hemoglobin Concent 34 g/dL (31-37) 33 g/dL (31-37) Red Cell Distribution Width 18.8 % (11.5-14.5) 18.9 % (11.5-14.5) Platelet Count 226 x10^3/uL (140-400) 208 x10^3/uL (140-400) Neutrophils (%) (Auto) 70 % (31-73) 67 % (31-73) Lymphocytes (%) (Auto) 21 % (24-48) 20 % (24-48) Monocytes (%) (Auto) 9 % (0-9) 12 % (0-9) Eosinophils (%) (Auto) 0 % (0-3) 0 % (0-3) Basophils (%) (Auto) 0 % (0-3) 0 % (0-3) Neutrophils # (Auto) 10.8 x10^3/uL (1.8-7.7) 8.4 x10^3/uL (1.8-7.7) Lymphocytes # (Auto) 3.2 x10^3/uL (1.0-4.8) 2.5 x10^3/uL (1.0-4.8) Monocytes # (Auto) 1.4 x10^3/uL (0.0-1.1) 1.5 x10^3/uL (0.0-1.1) Eosinophils # (Auto) 0.0 x10^3/uL (0.0-0.7) 0.1 x10^3/uL (0.0-0.7) Basophils # (Auto) 0.1 x10^3/uL (0.0-0.2) 0.0 x10^3/uL (0.0-0.2) Prothrombin Time 14.3 SEC (11.7-14.0) 13.3 SEC (11.7-14.0) Prothromb Time International Ratio 1.2 (0.8-1.1) 1.1 (0.8-1.1) Activated Partial Thromboplast Time 43 SEC (24-38) 42 SEC (24-38) Sodium Level 144 mmol/L (136-145) 144 mmol/L (136-145) Potassium Level 2.7 mmol/L (3.5-5.1) 3.1 mmol/L (3.5-5.1) Chloride Level 108 mmol/L (98-107) 110 mmol/L (98-107) Carbon Dioxide Level 26 mmol/L (21-32) 24 mmol/L (21-32) Anion Gap 10 (6-14) 10 (6-14) Blood Urea Nitrogen 4 mg/dL (7-20) 5 mg/dL (7-20) Creatinine 0.7 mg/dL (0.6-1.0) 1.0 mg/dL (0.6-1.0) Estimated GFR (Cockcroft-Gault) 94.7 62.7 Glucose Level 99 mg/dL (70-99) 92 mg/dL (70-99) Calcium Level 6.9 mg/dL (8.5-10.1) 6.7 mg/dL (8.5-10.1) Phosphorus Level 3.5 mg/dL (2.6-4.7) 3.5 mg/dL (2.6-4.7) Magnesium Level 3.0 mg/dL (1.8-2.4) 2.7 mg/dL (1.8-2.4) Test 12/08/20 07:22 Glucose (Fingerstick) 88 mg/dL (70-99) Medications Active Scripts Medications Dose Route/Sig Max Daily Dose Days Date Category Vancomycin Hcl 125 Mg Capsule 1 Cap PO QID 10 06/12/20 Rx Fenofibrate (Fenofibrate,Micronized) 134 Mg Capsule 134 Mg PO DAILY 05/25/20 Reported Potassium Chloride (Potassium Chloride) 20 Meq Tablet.er 20 Meq PO BIDAC 30 05/07/20 Rx Reglan (Metoclopramide Hcl) 10 Mg Tablet 10 Mg PO TID PRN 03/28/20 Rx Compazine (Prochlorperazine Maleate) 10 Mg Tablet 1 Tab PO Q6HRS 03/26/20 Rx Ondansetron Odt (Ondansetron) 4 Mg Tab.rapdis 1 Tab PO PRN Q6-8HRS 03/24/20 Rx Nexium Capsule (Esomeprazole Magnesium) 40 Mg Capsule.dr 1 Cap PO DAILY 7/26/20 Reported Amitriptyline Hcl 10 Mg Tablet 1 Tab PO QHS 90 05/27/19 Rx Celexa (Citalopram Hydrobromide) 20 Mg Tablet 1 Tab PO QHS 05/27/19 Rx Impression . IMPRESSION: 1. Acute respiratory failure secondary to cardiac arrest. 2. Ventricular fibrillation cardiac arrest requiring 10 minutes of advanced cardiac life support protocol with return of spontaneous circulation. Unclear etiology. 3. Severe hypokalemia, 4. Severe hypophosphatemia, 5. Mildly increased bilirubin 6. History of hepatic steatosis. 7. History of tobacco use. 8. Low Mg 9. SARS-CoV-2 negative 10. Leukocytosis suspect reactive Echo report Critical Value: No <Conclusion> The left ventricular systolic function is normal. The Ejection Fraction is 55%. There is normal LV segmental wall motion. Trace mitral regurgitation. Trace tricuspid regurgitation with an estimated PAP of 22 mmHg. There is no evidence of significant pericardial effusion. Plan . Updated 12/08 Patient currently being rewarmed Appreciate cardiology input We will continue current support I suspect patient will awaken once she is warmed up, Discussed with RT and RN and Total cumulative critical care time of 30 minutes, reviewing the current documentation, examining the patient. Reviewing labs chest x-ray EKG. And formulating a plan 12/07 1. Continue present assist control mode. Follow ABGs and make necessary adjustment. 2. Continue hypothermic protocol. 3. Cardiology consultation and will consider need for cardiac catheterization. 4. Deep venous thrombosis prophylaxis with heparin. 5. Obtain D-dimers. 6. Stress ulcer prophylaxis. 7. Once hypothermic protocol is over, we will assess for mental status to make sure she does not have any anoxic brain injury. 8. We will not need an echocardiogram. 9. Discussed with RN /RT , Patients father and Cardiology. cath soon Total critical care time 40 minutes including review of the chart, imaging studies, lab, assessment and decision making. VICTORINO STEPHENS MD Dec 08, 2020 08:36
[2020-12-08 08:38] LABS: FIO2 ABG 35/VENT
[2020-12-08 08:39] LABS: CORRECTED PCO2 ABG 35 mmHg; CORRECTED PO2 ABG 130 mmHg
--- NOTE | 2020-12-08 08:55 | PDOC ---
PROGRESS NOTES Date of Service: DATE: 12/08/20 TIME: 08:54 Chief Complaint Chief Complaint Images Images Chest radiograph interpretation: There is an ET tube with its tip at level clavicles. There is an enteric tube seen at least as far distal as the mid stomach. The heart and pulmonary vessels appear normal. The lungs and pleural margins are clear. Impression: ET tube and enteric tube well-positioned. VTE Prophylaxis Ordered VTE Prophylaxis Devices: No VTE Pharmacological Prophylaxi: Yes Assessment/Plan Assessment/Plan A/P: Ventricular fibrillation Cardiac arrest -likely due to torsades with prolonged QT worsened by hypokalemia, hypomagnesemia as well as Reglan and Haldol administration. Hypokalemia -replace IV loss likely due to 4 days of persistent vomiting , however need to consider other causes Gastroparesis with Nausea and vomiting -has not tolerated erythromycin in the past and will with this event Reglan may need to be substituted. GI consulted Prolonged QT interval -worsened by hypokalemia hypomagnesemia and prolonged Reglan use. Hypomagnesemia -replaced due to torsades Osteoarthritis bilateral ankles -has outpatient orthopedic follow-up Anxiety with depression -we will hold SSRI while patient is on ventilator. Respiratory failure - due to cardiac arrest. No pulmonary history. Pulmonology consulted No intracranial hemorrhage. No mass effect. No hydrocephalus OCC THC use EKG with RBBB and QT prolongation with QTc of 506. Mg 1.6 and K 2.5 upon arrival. PLAN admit ICU BED FEN - NPO PPX - pepcid, lovenox FULL CODE Dispo - ICU for cardiac arrest mrsa screen neg og placement iv hydrocortisone 100mg q 12 hrs 24 hr urine for k random urine k CC time 32 minutes Justifications for Admission Justifications for Admission Other Justification History of Present Illness History of Present Illness Identification/Chief Complaint Chief Complaint Nausea and vomiting Source Source: Caregiver, Chart review History of Present Illness History of Present Illness Ms Lafleur is a 35yo F w/ PMHx Anxiety, Depression, GERD, barrets, High Cholesterol, gastroparesis, OA bilateral ankles, smoker who presented to the ED c/o intractable nausea and vomiting that progressed over the past 3 days to the point she was unable to hold down liquids or her reglan. She reported to ED she had more than 5 bouts of emesis per day. Labs significant for WBC 15.1, Hb 14.9, platelets 338, NA 138, K2.5, magnesium 1.6, BUN 5, CR 1, glucose 141, bilirubin 1.1, AST 67, lipase 57. She was given a bolus of lactated Ringer's and IV Reglan. No significant improvement and was given 5 mg IV Haldol. EKG was sinus tachycardia 153 bpm, prolonged QRS at 128, prolonged QTC at 506, right axis deviation, no STEMI CODE BLUE was called around 05 100 when library monitor. With torsades which converted to ventricular fibrillation. Patient was given IV magnesium and two 200 J shocks with ROSC. Patient was intubated during cardiac arrest and started on propofol and potassium GTT. She was not completely sedated on propofol and Versed was added. Patient seen by myself sedated on ventilator in ED. Chest radiograph with ET tube and OGT in appropriate position. Admitted ICU for further care. Past Medical History Cardiovascular: Hyperlipidemia Pulmonary: No pertinent hx GI: GERD, Other Heme/Onc: No pertinent hx Hepatobiliary: No pertinent hx Psych: Anxiety, Depression Rheumatologic: No pertinent hx Infectious disease: Other Renal/: No pertinent hx Endocrine: No pertinent hx Past Surgical History Past Surgical History: Cholecystectomy, Other Family History Family History: Family History Unknown Social History Smoke: <1 pack per day ALCOHOL: other Drugs: Marijuana Current Problem List Problem List Problems Medical Problems: (1) Cardiac arrest Status: Acute (2) Hypokalemia Status: Acute (3) Hypomagnesemia Status: Acute (4) Nausea and vomiting Status: Acute (5) Prolonged QT interval Status: Acute Current Medications Current Medications Current Medications Ringer's Solution 500 ml @ 500 mls/hr 1X ONCE IV ; Start 12/07/20 at 05:00; Stop 12/07/20 at 05:59; Status DC Ringer's Solution 500 ml @ 500 mls/hr 1X ONCE IV ; Start 12/07/20 at 05:00; Stop 12/07/20 at 05:59; Status DC Metoclopramide HCl (Reglan Vial) 10 mg 1X ONCE IVP ; Start 12/07/20 at 05:30; Stop 12/07/20 at 05:05; Status DC Ringer's Solution 500 ml @ 500 mls/hr 1X ONCE IV ; Start 12/07/20 at 05:30; Stop 12/07/20 at 06:29; Status DC Haloperidol Lactate (Haldol Inj) 5 mg STK-MED ONCE .ROUTE ; Start 12/07/20 at 05:05; Stop 12/07/20 at 05:05; Status DC Haloperidol Lactate (Haldol Inj) 5 mg 1X ONCE IVP Last administered on 12/07/20at 05:14; Start 12/07/20 at 05:30; Stop 12/07/20 at 05:31; Status DC Diphenhydramine HCl (Benadryl) 50 mg 1X ONCE IVP Last administered on 12/07/20 at 05:14; Start 12/07/20 at 05:30; Stop 12/07/20 at 05:31; Status DC Ringer's Solution 500 ml @ 1,000 mls/hr 1X ONCE IV Last administered on 12/07/20at 05:13; Start 12/07/20 at 05:30; Stop 12/07/20 at 05:59; Status DC Propofol 100 ml @ As Directed STK-MED ONCE IV ; Start 12/07/20 at 05:56; Stop 12/07/20 at 05:56; Status DC Potassium Chloride/Sodium Chloride 1,000 ml @ 125 mls/hr Q8H IV Last administered on 12/07/20at 06:30; Start 12/07/20 at 06:30; Stop 12/07/20 at 14:29 Midazolam HCl (Versed) 5 mg STK-MED ONCE .ROUTE ; Start 12/07/20 at 06:29; Stop 12/07/20 at 06:30; Status DC Fentanyl Citrate 30 ml @ 0 mls/hr CONT PRN IV SEE PROTOCOL; Start 12/07/20 at 07:00 Chlorhexidine Gluconate (Peridex) 15 ml BID MM ; Start 12/07/20 at 09:00 Midazolam HCl 100 ml @ 0 mls/hr CONT PRN IV SEE PROTOCOL Last administered on 12/07/20at 07:15; Start 12/07/20 at 07:00 Magnesium Sulfate 100 ml @ 25 mls/hr 1X ONCE IV ; Start 12/07/20 at 07:30; Stop 12/07/20 at 11:29; Status UNV Famotidine (Pepcid Vial) 20 mg BID IVP ; Start 12/07/20 at 09:00; Status UNV Active Scripts Active Vancomycin Hcl 125 Mg Capsule 1 Cap PO QID 10 Days Potassium Chloride (Potassium Chloride) 20 Meq Tablet.er 20 Meq PO BIDAC 30 Days Reglan (Metoclopramide Hcl) 10 Mg Tablet 10 Mg PO TID PRN Compazine (Prochlorperazine Maleate) 10 Mg Tablet 1 Tab PO Q6HRS Ondansetron Odt (Ondansetron) 4 Mg Tab.rapdis 1 Tab PO PRN Q6-8HRS Amitriptyline Hcl 10 Mg Tablet 1 Tab PO QHS 90 Days Celexa (Citalopram Hydrobromide) 20 Mg Tablet 1 Tab PO QHS Reported Fenofibrate (Fenofibrate,Micronized) 134 Mg Capsule 134 Mg PO DAILY Nexium Capsule (Esomeprazole Magnesium) 40 Mg Capsule.dr 1 Cap PO DAILY Allergies Allergies: Coded Allergies: Corticosteroids (Glucocorticoids) (Verified Allergy, Severe, facial swelling, 05/25/20) Penicillins (Verified Allergy, Intermediate, hives, 05/25/20) I S O L A T I O N *CONTACT* (Verified Allergy, Unknown, 06/03/19) mrsa hydrocodone (Verified Adverse Reaction, Mild, Nausea, 05/25/20) ROS Review of System Unable to obtain due to sedation on ventilator Vitals Vitals Vital Signs Date Time Temp Pulse Resp B/P (MAP) Pulse Ox O2 Delivery O2 Flow Rate FiO2 12/08/20 08:19 100 Ventilator 12/08/20 08:00 57 14 81/47 12/08/20 06:00 89.9 12/08/20 00:58 35.0 Physical Exam Physical Exam General: mild distress, Other (Sedated on vent) HEENT: Atraumatic, PERRLA, EOMI, Mucous membr. moist/pink Lungs: Clear to auscultation, Normal air movement Heart: S1S2, RRR, no thrills, no rubs, no gallops, no murmurs Abdomen: Normal bowel sounds, Soft, No tenderness, No hepatosplenomegaly, No masses Extremities: No clubbing, No cyanosis, No edema, Normal pulses, No tenderness/s welling Skin: No rashes, No breakdown, No significant lesion Neuro: Reflexes 2+, Other (Moving all 4 limbs, withdraws to pain) Psych/Mental Status: Other (Sedated) General: No acute distress Heart: Regular rate, Other Lungs: Clear Abdomen: Soft Extremities: No cyanosis, No edema, Normal pulses Skin: No significant lesion Labs LABS XR CHEST 1V Clinical History: Reason: S/P INTUBATION-- POST CODE;OG PLACEMENT / Spl. Instructions: / History: Technique: AP view of the chest was obtained at 12/07/2020 5:51 AM. Comparison: None. Findings: There is an NG tube with its tip at level clavicles. There is an enteric tube seen at least as far distal as the mid stomach. The heart and pulmonary vessels appear normal. The lungs and pleural margins are clear. Impression: Intrarenal tube and enteric tube well-positioned. Electronically signed by: Lisa Santo III, MD (12/07/2020 6:18 AM) [facility] DICTATED and SIGNED BY: LISA SANTO III, MD DATE: 12/07/20 [id number] 0 ORDERED: URINE CULTURE Procedure Result URINE CULTURE Final Final No Growth on 12/08/20 at 0917 Testing Performed by: [address] [id number] For Inquires, the Physician may contact the Microbiology department at [phone] Unless otherwise specified, Testing Performed by: [address] [address] For Inquires, the Physician may contact the Microbiology department at [phone] CT HEAD/BRAIN WO History: Reason: r/o bleed for hypothermia / Spl. Instructions: / History: Comparison: None. Technique: Noncontrast CT imaging was performed of the head. Exposure: One or more of the following individualized dose reduction techniques were utilized for this examination: 1. Automated exposure control 2. Adjustment of the mA and/or kV according to patient size 3. Use of iterative reconstruction technique. Findings: No intracranial hemorrhage. No mass effect. No hydrocephalus. Extra-axial spaces are unremarkable. Imaged orbits are unremarkable. Imaged paranasal sinuses and mastoid air cells are clear. No acute calvarial fracture. Impression: 1. No acute intracranial abnormality. Electronically signed by: Jamison Jones DO (12/07/2020 8:08 AM) [id number] DICTATED and SIGNED BY: JAMISON JONES DO DATE: 12/07/20 [id number] No Growth on 12/08/20 at 0917 Imaging: Echo <Conclusion> The left ventricular systolic function is normal. The Ejection Fraction is 55%. There is normal LV segmental wall motion. Trace mitral regurgitation. Trace tricuspid regurgitation with an estimated PAP of 22 mmHg. There is no evidence of significant pericardial effusion. Laboratory Tests Test 12/07/20 09:27 12/07/20 09:32 12/07/20 09:38 12/07/20 10:40 Glucose (Fingerstick) 164 mg/dL (70-99) 165 mg/dL (70-99) O2 Saturation 99 % (92-99) Arterial Blood pH 7.46 (7.35-7.45) Arterial Blood pCO2 at Patient Temp 29 mmHg (35-46) Arterial Blood pO2 at Patient Temp 184 mmHg (85-108) Arterial Blood HCO3 20 mmol/L (21-28) Arterial Blood Base Excess -2 mmol/L (-3-3) FiO2 40 White Blood Count 26.6 x10^3/uL (4.0-11.0) Red Blood Count 4.06 x10^6/uL (3.50-5.40) Hemoglobin 13.1 g/dL (12.0-15.5) Hematocrit 39.5 % (36.0-47.0) Mean Corpuscular Volume 97 fL (79-100) Mean Corpuscular Hemoglobin 32 pg (25-35) Mean Corpuscular Hemoglobin Concent 33 g/dL (31-37) Red Cell Distribution Width 19.2 % (11.5-14.5) Platelet Count 264 x10^3/uL (140-400) Neutrophils (%) (Auto) 85 % (31-73) Lymphocytes (%) (Auto) 6 % (24-48) Monocytes (%) (Auto) 9 % (0-9) Eosinophils (%) (Auto) 0 % (0-3) Basophils (%) (Auto) 0 % (0-3) Neutrophils # (Auto) 22.6 x10^3/uL (1.8-7.7) Lymphocytes # (Auto) 1.6 x10^3/uL (1.0-4.8) Monocytes # (Auto) 2.3 x10^3/uL (0.0-1.1) Eosinophils # (Auto) 0.0 x10^3/uL (0.0-0.7) Basophils # (Auto) 0.0 x10^3/uL (0.0-0.2) Segmented Neutrophils % 87 % (35-66) Band Neutrophils % 4 % (0-9) Lymphocytes % 7 % (24-48) Monocytes % 2 % (0-10) Platelet Estimate Adequate (ADEQUATE) Anisocytosis Present Prothrombin Time 14.3 SEC (11.7-14.0) Prothromb Time International Ratio 1.2 (0.8-1.1) Activated Partial Thromboplast Time 25 SEC (24-38) Sodium Level 139 mmol/L (136-145) Potassium Level 3.0 mmol/L (3.5-5.1) Chloride Level 103 mmol/L (98-107) Carbon Dioxide Level 27 mmol/L (21-32) Anion Gap 9 (6-14) Blood Urea Nitrogen 4 mg/dL (7-20) Creatinine 0.7 mg/dL (0.6-1.0) Estimated GFR (Cockcroft-Gault) 94.7 Glucose Level 145 mg/dL (70-99) Calcium Level 7.5 mg/dL (8.5-10.1) Phosphorus Level 2.2 mg/dL (2.6-4.7) Magnesium Level 3.9 mg/dL (1.8-2.4) Test 12/07/20 13:15 12/07/20 15:08 12/07/20 16:16 12/07/20 17:00 Glucose (Fingerstick) 122 mg/dL (70-99) 124 mg/dL (70-99) 131 mg/dL (70-99) White Blood Count 22.4 x10^3/uL (4.0-11.0) Red Blood Count 4.02 x10^6/uL (3.50-5.40) Hemoglobin 13.2 g/dL (12.0-15.5) Hematocrit 38.9 % (36.0-47.0) Mean Corpuscular Volume 97 fL (79-100) Mean Corpuscular Hemoglobin 33 pg (25-35) Mean Corpuscular Hemoglobin Concent 34 g/dL (31-37) Red Cell Distribution Width 18.9 % (11.5-14.5) Platelet Count 260 x10^3/uL (140-400) Neutrophils (%) (Auto) 79 % (31-73) Lymphocytes (%) (Auto) 11 % (24-48) Monocytes (%) (Auto) 9 % (0-9) Eosinophils (%) (Auto) 0 % (0-3) Basophils (%) (Auto) 1 % (0-3) Neutrophils # (Auto) 17.6 x10^3/uL (1.8-7.7) Lymphocytes # (Auto) 2.5 x10^3/uL (1.0-4.8) Monocytes # (Auto) 2.1 x10^3/uL (0.0-1.1) Eosinophils # (Auto) 0.0 x10^3/uL (0.0-0.7) Basophils # (Auto) 0.1 x10^3/uL (0.0-0.2) Segmented Neutrophils % 84 % (35-66) Lymphocytes % 9 % (24-48) Monocytes % 7 % (0-10) Platelet Estimate Adequate (ADEQUATE) Anisocytosis Slight Prothrombin Time 13.9 SEC (11.7-14.0) Prothromb Time International Ratio 1.1 (0.8-1.1) Activated Partial Thromboplast Time 30 SEC (24-38) Sodium Level 142 mmol/L (136-145) Potassium Level 3.6 mmol/L (3.5-5.1) Chloride Level 106 mmol/L (98-107) Carbon Dioxide Level 25 mmol/L (21-32) Anion Gap 11 (6-14) Blood Urea Nitrogen 4 mg/dL (7-20) Creatinine 0.8 mg/dL (0.6-1.0) Estimated GFR (Cockcroft-Gault) 81.2 Glucose Level 113 mg/dL (70-99) Calcium Level 6.9 mg/dL (8.5-10.1) Phosphorus Level 5.7 mg/dL (2.6-4.7) Magnesium Level 3.3 mg/dL (1.8-2.4) Test 12/07/20 21:09 12/07/20 22:53 12/08/20 04:13 12/08/20 05:20 Glucose (Fingerstick) 112 mg/dL (70-99) 83 mg/dL (70-99) White Blood Count 15.6 x10^3/uL (4.0-11.0) 12.5 x10^3/uL (4.0-11.0) Red Blood Count 3.65 x10^6/uL (3.50-5.40) 3.74 x10^6/uL (3.50-5.40) Hemoglobin 12.0 g/dL (12.0-15.5) 12.2 g/dL (12.0-15.5) Hematocrit 35.3 % (36.0-47.0) 36.6 % (36.0-47.0) Mean Corpuscular Volume 97 fL (79-100) 98 fL (79-100) Mean Corpuscular Hemoglobin 33 pg (25-35) 33 pg (25-35) Mean Corpuscular Hemoglobin Concent 34 g/dL (31-37) 33 g/dL (31-37) Red Cell Distribution Width 18.8 % (11.5-14.5) 18.9 % (11.5-14.5) Platelet Count 226 x10^3/uL (140-400) 208 x10^3/uL (140-400) Neutrophils (%) (Auto) 70 % (31-73) 67 % (31-73) Lymphocytes (%) (Auto) 21 % (24-48) 20 % (24-48) Monocytes (%) (Auto) 9 % (0-9) 12 % (0-9) Eosinophils (%) (Auto) 0 % (0-3) 0 % (0-3) Basophils (%) (Auto) 0 % (0-3) 0 % (0-3) Neutrophils # (Auto) 10.8 x10^3/uL (1.8-7.7) 8.4 x10^3/uL (1.8-7.7) Lymphocytes # (Auto) 3.2 x10^3/uL (1.0-4.8) 2.5 x10^3/uL (1.0-4.8) Monocytes # (Auto) 1.4 x10^3/uL (0.0-1.1) 1.5 x10^3/uL (0.0-1.1) Eosinophils # (Auto) 0.0 x10^3/uL (0.0-0.7) 0.1 x10^3/uL (0.0-0.7) Basophils # (Auto) 0.1 x10^3/uL (0.0-0.2) 0.0 x10^3/uL (0.0-0.2) Prothrombin Time 14.3 SEC (11.7-14.0) 13.3 SEC (11.7-14.0) Prothromb Time International Ratio 1.2 (0.8-1.1) 1.1 (0.8-1.1) Activated Partial Thromboplast Time 43 SEC (24-38) 42 SEC (24-38) Sodium Level 144 mmol/L (136-145) 144 mmol/L (136-145) Potassium Level 2.7 mmol/L (3.5-5.1) 3.1 mmol/L (3.5-5.1) Chloride Level 108 mmol/L (98-107) 110 mmol/L (98-107) Carbon Dioxide Level 26 mmol/L (21-32) 24 mmol/L (21-32) Anion Gap 10 (6-14) 10 (6-14) Blood Urea Nitrogen 4 mg/dL (7-20) 5 mg/dL (7-20) Creatinine 0.7 mg/dL (0.6-1.0) 1.0 mg/dL (0.6-1.0) Estimated GFR (Cockcroft-Gault) 94.7 62.7 Glucose Level 99 mg/dL (70-99) 92 mg/dL (70-99) Calcium Level 6.9 mg/dL (8.5-10.1) 6.7 mg/dL (8.5-10.1) Phosphorus Level 3.5 mg/dL (2.6-4.7) 3.5 mg/dL (2.6-4.7) Magnesium Level 3.0 mg/dL (1.8-2.4) 2.7 mg/dL (1.8-2.4) Test 12/08/20 07:22 12/08/20 07:50 12/08/20 08:35 Glucose (Fingerstick) 88 mg/dL (70-99) 79 mg/dL (70-99) O2 Saturation 99 % (92-99) Arterial Blood pH 7.36 (7.35-7.45) Arterial Blood pH (Temp corrected) 7.40 Arterial Blood pCO2 at Patient Temp 40 mmHg (35-46) Arterial Blood pCO2 (Temp correct) 35 mmHg Arterial Blood pO2 at Patient Temp 148 mmHg (85-108) Arterial Blood pO2 (Temp corrected) 130 mmHg Arterial Blood HCO3 22 mmol/L (21-28) Arterial Blood Base Excess -3 mmol/L (-3-3) FiO2 35/vent Assessment and Plan Assessmemt and Plan Problems Medical Problems: (1) Cardiac arrest Status: Acute (2) Hypokalemia Status: Acute (3) Hypomagnesemia Status: Acute (4) Nausea and vomiting Status: Acute (5) Prolonged QT interval Status: Acute Comment Review of Relevant I have reviewed the following items josué (where applicable) has been applied. Labs Laboratory Tests Test 12/07/20 05:01 12/07/20 05:22 12/07/20 06:00 12/07/20 09:27 Magnesium Level 1.6 mg/dL (1.8-2.4) Troponin I Quantitative < 0.017 ng/mL (0.000-0.055) White Blood Count 15.1 x10^3/uL (4.0-11.0) Red Blood Count 4.57 x10^6/uL (3.50-5.40) Hemoglobin 14.9 g/dL (12.0-15.5) Hematocrit 43.6 % (36.0-47.0) Mean Corpuscular Volume 95 fL (79-100) Mean Corpuscular Hemoglobin 33 pg (25-35) Mean Corpuscular Hemoglobin Concent 34 g/dL (31-37) Red Cell Distribution Width 19.2 % (11.5-14.5) Platelet Count 338 x10^3/uL (140-400) Neutrophils (%) (Auto) 75 % (31-73) Lymphocytes (%) (Auto) 16 % (24-48) Monocytes (%) (Auto) 8 % (0-9) Eosinophils (%) (Auto) 0 % (0-3) Basophils (%) (Auto) 1 % (0-3) Neutrophils # (Auto) 11.2 x10^3/uL (1.8-7.7) Lymphocytes # (Auto) 2.4 x10^3/uL (1.0-4.8) Monocytes # (Auto) 1.2 x10^3/uL (0.0-1.1) Eosinophils # (Auto) 0.0 x10^3/uL (0.0-0.7) Basophils # (Auto) 0.1 x10^3/uL (0.0-0.2) Prothrombin Time 13.0 SEC (11.7-14.0) Prothromb Time International Ratio 1.0 (0.8-1.1) Activated Partial Thromboplast Time 25 SEC (24-38) D-Dimer (Francia) < 0.27 ug/mlFEU Sodium Level 138 mmol/L (136-145) Potassium Level 2.5 mmol/L (3.5-5.1) Chloride Level 95 mmol/L (98-107) Carbon Dioxide Level 28 mmol/L (21-32) Anion Gap 15 (6-14) Blood Urea Nitrogen 5 mg/dL (7-20) Creatinine 1.0 mg/dL (0.6-1.0) Estimated GFR (Cockcroft-Gault) 62.7 BUN/Creatinine Ratio 5 (6-20) Glucose Level 141 mg/dL (70-99) Calcium Level 9.2 mg/dL (8.5-10.1) Phosphorus Level 1.8 mg/dL (2.6-4.7) Total Bilirubin 1.2 mg/dL (0.2-1.0) Aspartate Amino Transf (AST/SGOT) 67 U/L (15-37) Alanine Aminotransferase (ALT/SGPT) 32 U/L (14-59) Alkaline Phosphatase 87 U/L (46-116) Total Protein 7.9 g/dL (6.4-8.2) Albumin 3.5 g/dL (3.4-5.0) Albumin/Globulin Ratio 0.8 (1.0-1.7) Triglycerides Level 118 mg/dL (0-150) Lipase 57 U/L (73-393) Urine Collection Type Unknown Urine Color Wendy Urine Clarity Cloudy Urine pH 6.5 (<5.0-8.0) Urine Specific [place] 1.025 (1.000-1.030) Urine Protein >=300 mg/dL (NEG-TRACE) Urine Glucose (UA) 100 mg/dL (NEG) Urine Ketones (Stick) 40 mg/dL (NEG) Urine Blood Small (NEG) Urine Nitrite Negative (NEG) Urine Bilirubin Small (NEG) Urine Urobilinogen Dipstick 1.0 mg/dL (0.2 mg/dL) Urine Leukocyte Esterase Small (NEG) Urine RBC Occ /HPF (0-2) Urine WBC 5-10 /HPF (0-4) Urine Squamous Epithelial Cells Many /LPF Urine Bacteria Few /HPF (0-FEW) Glucose (Fingerstick) 164 mg/dL (70-99) Test 12/07/20 09:32 12/07/20 09:38 12/07/20 10:40 12/07/20 13:15 Glucose (Fingerstick) 165 mg/dL (70-99) 122 mg/dL (70-99) O2 Saturation 99 % (92-99) Arterial Blood pH 7.46 (7.35-7.45) Arterial Blood pCO2 at Patient Temp 29 mmHg (35-46) Arterial Blood pO2 at Patient Temp 184 mmHg (85-108) Arterial Blood HCO3 20 mmol/L (21-28) Arterial Blood Base Excess -2 mmol/L (-3-3) FiO2 40 White Blood Count 26.6 x10^3/uL (4.0-11.0) Red Blood Count 4.06 x10^6/uL (3.50-5.40) Hemoglobin 13.1 g/dL (12.0-15.5) Hematocrit 39.5 % (36.0-47.0) Mean Corpuscular Volume 97 fL (79-100) Mean Corpuscular Hemoglobin 32 pg (25-35) Mean Corpuscular Hemoglobin Concent 33 g/dL (31-37) Red Cell Distribution Width 19.2 % (11.5-14.5) Platelet Count 264 x10^3/uL (140-400) Neutrophils (%) (Auto) 85 % (31-73) Lymphocytes (%) (Auto) 6 % (24-48) Monocytes (%) (Auto) 9 % (0-9) Eosinophils (%) (Auto) 0 % (0-3) Basophils (%) (Auto) 0 % (0-3) Neutrophils # (Auto) 22.6 x10^3/uL (1.8-7.7) Lymphocytes # (Auto) 1.6 x10^3/uL (1.0-4.8) Monocytes # (Auto) 2.3 x10^3/uL (0.0-1.1) Eosinophils # (Auto) 0.0 x10^3/uL (0.0-0.7) Basophils # (Auto) 0.0 x10^3/uL (0.0-0.2) Segmented Neutrophils % 87 % (35-66) Band Neutrophils % 4 % (0-9) Lymphocytes % 7 % (24-48) Monocytes % 2 % (0-10) Platelet Estimate Adequate (ADEQUATE) Anisocytosis Present Prothrombin Time 14.3 SEC (11.7-14.0) Prothromb Time International Ratio 1.2 (0.8-1.1) Activated Partial Thromboplast Time 25 SEC (24-38) Sodium Level 139 mmol/L (136-145) Potassium Level 3.0 mmol/L (3.5-5.1) Chloride Level 103 mmol/L (98-107) Carbon Dioxide Level 27 mmol/L (21-32) Anion Gap 9 (6-14) Blood Urea Nitrogen 4 mg/dL (7-20) Creatinine 0.7 mg/dL (0.6-1.0) Estimated GFR (Cockcroft-Gault) 94.7 Glucose Level 145 mg/dL (70-99) Calcium Level 7.5 mg/dL (8.5-10.1) Phosphorus Level 2.2 mg/dL (2.6-4.7) Magnesium Level 3.9 mg/dL (1.8-2.4) Test 12/07/20 15:08 12/07/20 16:16 12/07/20 17:00 12/07/20 21:09 Glucose (Fingerstick) 124 mg/dL (70-99) 131 mg/dL (70-99) 112 mg/dL (70-99) White Blood Count 22.4 x10^3/uL (4.0-11.0) Red Blood Count 4.02 x10^6/uL (3.50-5.40) Hemoglobin 13.2 g/dL (12.0-15.5) Hematocrit 38.9 % (36.0-47.0) Mean Corpuscular Volume 97 fL (79-100) Mean Corpuscular Hemoglobin 33 pg (25-35) Mean Corpuscular Hemoglobin Concent 34 g/dL (31-37) Red Cell Distribution Width 18.9 % (11.5-14.5) Platelet Count 260 x10^3/uL (140-400) Neutrophils (%) (Auto) 79 % (31-73) Lymphocytes (%) (Auto) 11 % (24-48) Monocytes (%) (Auto) 9 % (0-9) Eosinophils (%) (Auto) 0 % (0-3) Basophils (%) (Auto) 1 % (0-3) Neutrophils # (Auto) 17.6 x10^3/uL (1.8-7.7) Lymphocytes # (Auto) 2.5 x10^3/uL (1.0-4.8) Monocytes # (Auto) 2.1 x10^3/uL (0.0-1.1) Eosinophils # (Auto) 0.0 x10^3/uL (0.0-0.7) Basophils # (Auto) 0.1 x10^3/uL (0.0-0.2) Segmented Neutrophils % 84 % (35-66) Lymphocytes % 9 % (24-48) Monocytes % 7 % (0-10) Platelet Estimate Adequate (ADEQUATE) Anisocytosis Slight Prothrombin Time 13.9 SEC (11.7-14.0) Prothromb Time International Ratio 1.1 (0.8-1.1) Activated Partial Thromboplast Time 30 SEC (24-38) Sodium Level 142 mmol/L (136-145) Potassium Level 3.6 mmol/L (3.5-5.1) Chloride Level 106 mmol/L (98-107) Carbon Dioxide Level 25 mmol/L (21-32) Anion Gap 11 (6-14) Blood Urea Nitrogen 4 mg/dL (7-20) Creatinine 0.8 mg/dL (0.6-1.0) Estimated GFR (Cockcroft-Gault) 81.2 Glucose Level 113 mg/dL (70-99) Calcium Level 6.9 mg/dL (8.5-10.1) Phosphorus Level 5.7 mg/dL (2.6-4.7) Magnesium Level 3.3 mg/dL (1.8-2.4) Test 12/07/20 22:53 12/08/20 04:13 12/08/20 05:20 12/08/20 07:22 White Blood Count 15.6 x10^3/uL (4.0-11.0) 12.5 x10^3/uL (4.0-11.0) Red Blood Count 3.65 x10^6/uL (3.50-5.40) 3.74 x10^6/uL (3.50-5.40) Hemoglobin 12.0 g/dL (12.0-15.5) 12.2 g/dL (12.0-15.5) Hematocrit 35.3 % (36.0-47.0) 36.6 % (36.0-47.0) Mean Corpuscular Volume 97 fL (79-100) 98 fL (79-100) Mean Corpuscular Hemoglobin 33 pg (25-35) 33 pg (25-35) Mean Corpuscular Hemoglobin Concent 34 g/dL (31-37) 33 g/dL (31-37) Red Cell Distribution Width 18.8 % (11.5-14.5) 18.9 % (11.5-14.5) Platelet Count 226 x10^3/uL (140-400) 208 x10^3/uL (140-400) Neutrophils (%) (Auto) 70 % (31-73) 67 % (31-73) Lymphocytes (%) (Auto) 21 % (24-48) 20 % (24-48) Monocytes (%) (Auto) 9 % (0-9) 12 % (0-9) Eosinophils (%) (Auto) 0 % (0-3) 0 % (0-3) Basophils (%) (Auto) 0 % (0-3) 0 % (0-3) Neutrophils # (Auto) 10.8 x10^3/uL (1.8-7.7) 8.4 x10^3/uL (1.8-7.7) Lymphocytes # (Auto) 3.2 x10^3/uL (1.0-4.8) 2.5 x10^3/uL (1.0-4.8) Monocytes # (Auto) 1.4 x10^3/uL (0.0-1.1) 1.5 x10^3/uL (0.0-1.1) Eosinophils # (Auto) 0.0 x10^3/uL (0.0-0.7) 0.1 x10^3/uL (0.0-0.7) Basophils # (Auto) 0.1 x10^3/uL (0.0-0.2) 0.0 x10^3/uL (0.0-0.2) Prothrombin Time 14.3 SEC (11.7-14.0) 13.3 SEC (11.7-14.0) Prothromb Time International Ratio 1.2 (0.8-1.1) 1.1 (0.8-1.1) Activated Partial Thromboplast Time 43 SEC (24-38) 42 SEC (24-38) Sodium Level 144 mmol/L (136-145) 144 mmol/L (136-145) Potassium Level 2.7 mmol/L (3.5-5.1) 3.1 mmol/L (3.5-5.1) Chloride Level 108 mmol/L (98-107) 110 mmol/L (98-107) Carbon Dioxide Level 26 mmol/L (21-32) 24 mmol/L (21-32) Anion Gap 10 (6-14) 10 (6-14) Blood Urea Nitrogen 4 mg/dL (7-20) 5 mg/dL (7-20) Creatinine 0.7 mg/dL (0.6-1.0) 1.0 mg/dL (0.6-1.0) Estimated GFR (Cockcroft-Gault) 94.7 62.7 Glucose Level 99 mg/dL (70-99) 92 mg/dL (70-99) Calcium Level 6.9 mg/dL (8.5-10.1) 6.7 mg/dL (8.5-10.1) Phosphorus Level 3.5 mg/dL (2.6-4.7) 3.5 mg/dL (2.6-4.7) Magnesium Level 3.0 mg/dL (1.8-2.4) 2.7 mg/dL (1.8-2.4) Glucose (Fingerstick) 83 mg/dL (70-99) 88 mg/dL (70-99) Test 12/08/20 07:50 12/08/20 08:35 O2 Saturation 99 % (92-99) Arterial Blood pH 7.36 (7.35-7.45) Arterial Blood pH (Temp corrected) 7.40 Arterial Blood pCO2 at Patient Temp 40 mmHg (35-46) Arterial Blood pCO2 (Temp correct) 35 mmHg Arterial Blood pO2 at Patient Temp 148 mmHg (85-108) Arterial Blood pO2 (Temp corrected) 130 mmHg Arterial Blood HCO3 22 mmol/L (21-28) Arterial Blood Base Excess -3 mmol/L (-3-3) FiO2 35/vent Glucose (Fingerstick) 79 mg/dL (70-99) Laboratory Tests Test 12/07/20 09:27 12/07/20 09:32 12/07/20 09:38 12/07/20 10:40 Glucose (Fingerstick) 164 mg/dL (70-99) 165 mg/dL (70-99) O2 Saturation 99 % (92-99) Arterial Blood pH 7.46 (7.35-7.45) Arterial Blood pCO2 at Patient Temp 29 mmHg (35-46) Arterial Blood pO2 at Patient Temp 184 mmHg (85-108) Arterial Blood HCO3 20 mmol/L (21-28) Arterial Blood Base Excess -2 mmol/L (-3-3) FiO2 40 White Blood Count 26.6 x10^3/uL (4.0-11.0) Red Blood Count 4.06 x10^6/uL (3.50-5.40) Hemoglobin 13.1 g/dL (12.0-15.5) Hematocrit 39.5 % (36.0-47.0) Mean Corpuscular Volume 97 fL (79-100) Mean Corpuscular Hemoglobin 32 pg (25-35) Mean Corpuscular Hemoglobin Concent 33 g/dL (31-37) Red Cell Distribution Width 19.2 % (11.5-14.5) Platelet Count 264 x10^3/uL (140-400) Neutrophils (%) (Auto) 85 % (31-73) Lymphocytes (%) (Auto) 6 % (24-48) Monocytes (%) (Auto) 9 % (0-9) Eosinophils (%) (Auto) 0 % (0-3) Basophils (%) (Auto) 0 % (0-3) Neutrophils # (Auto) 22.6 x10^3/uL (1.8-7.7) Lymphocytes # (Auto) 1.6 x10^3/uL (1.0-4.8) Monocytes # (Auto) 2.3 x10^3/uL (0.0-1.1) Eosinophils # (Auto) 0.0 x10^3/uL (0.0-0.7) Basophils # (Auto) 0.0 x10^3/uL (0.0-0.2) Segmented Neutrophils % 87 % (35-66) Band Neutrophils % 4 % (0-9) Lymphocytes % 7 % (24-48) Monocytes % 2 % (0-10) Platelet Estimate Adequate (ADEQUATE) Anisocytosis Present Prothrombin Time 14.3 SEC (11.7-14.0) Prothromb Time International Ratio 1.2 (0.8-1.1) Activated Partial Thromboplast Time 25 SEC (24-38) Sodium Level 139 mmol/L (136-145) Potassium Level 3.0 mmol/L (3.5-5.1) Chloride Level 103 mmol/L (98-107) Carbon Dioxide Level 27 mmol/L (21-32) Anion Gap 9 (6-14) Blood Urea Nitrogen 4 mg/dL (7-20) Creatinine 0.7 mg/dL (0.6-1.0) Estimated GFR (Cockcroft-Gault) 94.7 Glucose Level 145 mg/dL (70-99) Calcium Level 7.5 mg/dL (8.5-10.1) Phosphorus Level 2.2 mg/dL (2.6-4.7) Magnesium Level 3.9 mg/dL (1.8-2.4) Test 12/07/20 13:15 12/07/20 15:08 12/07/20 16:16 12/07/20 17:00 Glucose (Fingerstick) 122 mg/dL (70-99) 124 mg/dL (70-99) 131 mg/dL (70-99) White Blood Count 22.4 x10^3/uL (4.0-11.0) Red Blood Count 4.02 x10^6/uL (3.50-5.40) Hemoglobin 13.2 g/dL (12.0-15.5) Hematocrit 38.9 % (36.0-47.0) Mean Corpuscular Volume 97 fL (79-100) Mean Corpuscular Hemoglobin 33 pg (25-35) Mean Corpuscular Hemoglobin Concent 34 g/dL (31-37) Red Cell Distribution Width 18.9 % (11.5-14.5) Platelet Count 260 x10^3/uL (140-400) Neutrophils (%) (Auto) 79 % (31-73) Lymphocytes (%) (Auto) 11 % (24-48) Monocytes (%) (Auto) 9 % (0-9) Eosinophils (%) (Auto) 0 % (0-3) Basophils (%) (Auto) 1 % (0-3) Neutrophils # (Auto) 17.6 x10^3/uL (1.8-7.7) Lymphocytes # (Auto) 2.5 x10^3/uL (1.0-4.8) Monocytes # (Auto) 2.1 x10^3/uL (0.0-1.1) Eosinophils # (Auto) 0.0 x10^3/uL (0.0-0.7) Basophils # (Auto) 0.1 x10^3/uL (0.0-0.2) Segmented Neutrophils % 84 % (35-66) Lymphocytes % 9 % (24-48) Monocytes % 7 % (0-10) Platelet Estimate Adequate (ADEQUATE) Anisocytosis Slight Prothrombin Time 13.9 SEC (11.7-14.0) Prothromb Time International Ratio 1.1 (0.8-1.1) Activated Partial Thromboplast Time 30 SEC (24-38) Sodium Level 142 mmol/L (136-145) Potassium Level 3.6 mmol/L (3.5-5.1) Chloride Level 106 mmol/L (98-107) Carbon Dioxide Level 25 mmol/L (21-32) Anion Gap 11 (6-14) Blood Urea Nitrogen 4 mg/dL (7-20) Creatinine 0.8 mg/dL (0.6-1.0) Estimated GFR (Cockcroft-Gault) 81.2 Glucose Level 113 mg/dL (70-99) Calcium Level 6.9 mg/dL (8.5-10.1) Phosphorus Level 5.7 mg/dL (2.6-4.7) Magnesium Level 3.3 mg/dL (1.8-2.4) Test 12/07/20 21:09 12/07/20 22:53 12/08/20 04:13 12/08/20 05:20 Glucose (Fingerstick) 112 mg/dL (70-99) 83 mg/dL (70-99) White Blood Count 15.6 x10^3/uL (4.0-11.0) 12.5 x10^3/uL (4.0-11.0) Red Blood Count 3.65 x10^6/uL (3.50-5.40) 3.74 x10^6/uL (3.50-5.40) Hemoglobin 12.0 g/dL (12.0-15.5) 12.2 g/dL (12.0-15.5) Hematocrit 35.3 % (36.0-47.0) 36.6 % (36.0-47.0) Mean Corpuscular Volume 97 fL (79-100) 98 fL (79-100) Mean Corpuscular Hemoglobin 33 pg (25-35) 33 pg (25-35) Mean Corpuscular Hemoglobin Concent 34 g/dL (31-37) 33 g/dL (31-37) Red Cell Distribution Width 18.8 % (11.5-14.5) 18.9 % (11.5-14.5) Platelet Count 226 x10^3/uL (140-400) 208 x10^3/uL (140-400) Neutrophils (%) (Auto) 70 % (31-73) 67 % (31-73) Lymphocytes (%) (Auto) 21 % (24-48) 20 % (24-48) Monocytes (%) (Auto) 9 % (0-9) 12 % (0-9) Eosinophils (%) (Auto) 0 % (0-3) 0 % (0-3) Basophils (%) (Auto) 0 % (0-3) 0 % (0-3) Neutrophils # (Auto) 10.8 x10^3/uL (1.8-7.7) 8.4 x10^3/uL (1.8-7.7) Lymphocytes # (Auto) 3.2 x10^3/uL (1.0-4.8) 2.5 x10^3/uL (1.0-4.8) Monocytes # (Auto) 1.4 x10^3/uL (0.0-1.1) 1.5 x10^3/uL (0.0-1.1) Eosinophils # (Auto) 0.0 x10^3/uL (0.0-0.7) 0.1 x10^3/uL (0.0-0.7) Basophils # (Auto) 0.1 x10^3/uL (0.0-0.2) 0.0 x10^3/uL (0.0-0.2) Prothrombin Time 14.3 SEC (11.7-14.0) 13.3 SEC (11.7-14.0) Prothromb Time International Ratio 1.2 (0.8-1.1) 1.1 (0.8-1.1) Activated Partial Thromboplast Time 43 SEC (24-38) 42 SEC (24-38) Sodium Level 144 mmol/L (136-145) 144 mmol/L (136-145) Potassium Level 2.7 mmol/L (3.5-5.1) 3.1 mmol/L (3.5-5.1) Chloride Level 108 mmol/L (98-107) 110 mmol/L (98-107) Carbon Dioxide Level 26 mmol/L (21-32) 24 mmol/L (21-32) Anion Gap 10 (6-14) 10 (6-14) Blood Urea Nitrogen 4 mg/dL (7-20) 5 mg/dL (7-20) Creatinine 0.7 mg/dL (0.6-1.0) 1.0 mg/dL (0.6-1.0) Estimated GFR (Cockcroft-Gault) 94.7 62.7 Glucose Level 99 mg/dL (70-99) 92 mg/dL (70-99) Calcium Level 6.9 mg/dL (8.5-10.1) 6.7 mg/dL (8.5-10.1) Phosphorus Level 3.5 mg/dL (2.6-4.7) 3.5 mg/dL (2.6-4.7) Magnesium Level 3.0 mg/dL (1.8-2.4) 2.7 mg/dL (1.8-2.4) Test 12/08/20 07:22 12/08/20 07:50 12/08/20 08:35 Glucose (Fingerstick) 88 mg/dL (70-99) 79 mg/dL (70-99) O2 Saturation 99 % (92-99) Arterial Blood pH 7.36 (7.35-7.45) Arterial Blood pH (Temp corrected) 7.40 Arterial Blood pCO2 at Patient Temp 40 mmHg (35-46) Arterial Blood pCO2 (Temp correct) 35 mmHg Arterial Blood pO2 at Patient Temp 148 mmHg (85-108) Arterial Blood pO2 (Temp corrected) 130 mmHg Arterial Blood HCO3 22 mmol/L (21-28) Arterial Blood Base Excess -3 mmol/L (-3-3) FiO2 35/vent Medications Current Medications Ringer's Solution 500 ml @ 500 mls/hr 1X ONCE IV ; Start 12/07/20 at 05:00; Stop 12/07/20 at 05:59; Status DC Ringer's Solution 500 ml @ 500 mls/hr 1X ONCE IV ; Start 12/07/20 at 05:00; Stop 12/07/20 at 05:59; Status DC Metoclopramide HCl (Reglan Vial) 10 mg 1X ONCE IVP ; Start 12/07/20 at 05:30; Stop 12/07/20 at 05:05; Status DC Ringer's Solution 500 ml @ 500 mls/hr 1X ONCE IV ; Start 12/07/20 at 05:30; Stop 12/07/20 at 06:29; Status DC Haloperidol Lactate (Haldol Inj) 5 mg STK-MED ONCE .ROUTE ; Start 12/07/20 at 05:05; Stop 12/07/20 at 05:05; Status DC Haloperidol Lactate (Haldol Inj) 5 mg 1X ONCE IVP Last administered on 12/07/20at 05:14; Start 12/07/20 at 05:30; Stop 12/07/20 at 05:31; Status DC Diphenhydramine HCl (Benadryl) 50 mg 1X ONCE IVP Last administered on 12/07/20at 05:14; Start 12/07/20 at 05:30; Stop 12/07/20 at 05:31; Status DC Ringer's Solution 500 ml @ 1,000 mls/hr 1X ONCE IV Last administered on 12/07/20at 05:13; Start 12/07/20 at 05:30; Stop 12/07/20 at 05:59; Status DC Propofol 100 ml @ As Directed STK-MED ONCE IV ; Start 12/07/20 at 05:56; Stop 12/07/20 at 05:56; Status DC Potassium Chloride/Sodium Chloride 1,000 ml @ 125 mls/hr Q8H IV Last administered on 12/07/20at 06:30; Start 12/07/20 at 06:30; Stop 12/07/20 at 14:29; Status DC Midazolam HCl (Versed) 5 mg STK-MED ONCE .ROUTE ; Start 12/07/20 at 06:29; Stop 12/07/20 at 06:30; Status DC Fentanyl Citrate 30 ml @ 0 mls/hr CONT PRN IV SEE PROTOCOL; Start 12/07/20 at 07:00; Status Cancel Chlorhexidine Gluconate (Peridex) 15 ml BID MM Last administered on 12/07/20at 09:00; Start 12/07/20 at 09:00; Stop 12/07/20 at 18:44; Status DC Midazolam HCl 100 ml @ 0 mls/hr CONT PRN IV SEE PROTOCOL Last administered on 12/07/20 20:29; Start 12/07/20 at 07:00 Magnesium Sulfate 100 ml @ 25 mls/hr 1X ONCE IV Last administered on 12/07/20 08:47; Start 12/07/20 at 07:30; Stop 12/07/20 at 11:29; Status DC Famotidine (Pepcid Vial) 20 mg BID IVP ; Start 12/07/20 at 09:00; Stop 12/07/20 at 10:56; Status DC Buspirone HCl (Buspar) 30 mg Q8H NG Last administered on 12/08/20 08:19; Start 12/07/20 at 08:00; Stop 12/09/20 at 00:01 Acetaminophen (Tylenol) 650 mg Q4H NG Last administered on 12/08/20 04:25; Start 12/07/20 at 08:00 Glycerin/ Hypromellose/ Polyethylene (Artificial Tears) 1 drop Q6HRS OU Last administered on 12/07/20 17:25; Start 12/07/20 at 12:00; Stop 12/07/20 at 18:44; Status DC Glycerin/ Hypromellose/ Polyethylene (Artificial Tears) 1 drop PRN Q15MIN PRN OU DRY EYE; Start 12/07/20 at 08:00 Heparin Sodium (Porcine) (Heparin Sodium) 5,000 unit BID SQ Last administered on 12/08/20 08:20; Start 12/07/20 at 09:00 Pantoprazole Sodium (PROTONIX VIAL for IV PUSH) 40 mg DAILY IVP Last administered on 12/08/20 08:19; Start 12/07/20 at 09:00 Fentanyl Citrate 30 ml @ 0 mls/hr CONT PRN IV PER PROTOCOL. Last administered on 12/08/20 08:19; Start 12/07/20 at 08:00 Propofol 100 ml @ 0 mls/hr CONT PRN IV PER PROTOCOL. Last administered on 12/08/20 04:24; Start 12/07/20 at 08:00 Midazolam HCl 100 ml @ 0 mls/hr CONT PRN IV PER PROTOCOL; Start 12/07/20 at 08:00; Status UNV Vecuronium [place] (Norcuron Bolus) 6 mg PRN Q1HR PRN IV SHIVERING Last administered on 4/14/21at 08:47; Start 12/07/20 at 08:00 Potassium Chloride/Water 100 ml @ 100 mls/hr Q1H IV Last administered on 12/07/20at 10:49; Start 12/07/20 at 09:00; Stop 12/07/20 at 12:59; Status DC Potassium Chloride/Water 100 ml @ 100 mls/hr Q1H IV ; Start 12/07/20 at 12:00; Stop 12/07/20 at 14:59; Status DC Potassium Phosphate 10 mmol/ Sodium Chloride 103.3333 ml @ 51.667 m... Q2H IV Last administered on 12/07/20at 12:00; Start 12/07/20 at 10:00; Stop 12/07/20 at 13:59; Status DC Potassium Phosphate 10 mmol/ Sodium Chloride 103.3333 ml @ 51.667 m... Q2H IV Last administered on 12/07/20at 13:43; Start 12/07/20 at 12:00; Stop 12/07/20 at 15:59; Status DC Sodium Bicarbonate (Sodium Bicarb Adult 8.4% Syr) 50 meq STK-MED ONCE .ROUTE ; Start 12/07/20 at 12:00; Stop 12/07/20 at 15:47; Status DC Amiodarone HCl (Cordarone) 300 mg STK-MED ONCE .ROUTE ; Start 12/07/20 at 12:00; Stop 12/07/20 at 15:47; Status DC Epinephrine HCl (EPINEPHrine SYRINGE) 3 mg STK-MED ONCE .ROUTE ; Start 12/07/20 at 12:00; Stop 12/07/20 at 15:47; Status DC Midazolam HCl (Versed) 5 mg STK-MED ONCE .ROUTE ; Start 12/07/20 at 12:00; Stop 12/07/20 at 15:47; Status DC Magnesium Sulfate/ Dextrose (Magnesium Sulfate PREMIX 1GM) 1 gm STK-MED ONCE IV ; Start 12/07/20 at 12:00; Stop 12/07/20 at 15:47; Status DC Sodium Chloride 1,000 ml @ 50 mls/hr Q20H IV Last administered on 12/07/20at 17:30; Start 12/07/20 at 17:30 Potassium Chloride/Water 100 ml @ 100 mls/hr 1X ONCE IV Last administered on 12/07/20at 23:35; Start 12/07/20 at 23:30; Stop 12/08/20 at 00:29; Status DC Dopamine HCl/ Dextrose 250 ml @ 13.481 mls/ hr CONT PRN IV SEE I/O RECORD; Start 12/08/20 at 06:45 Active Scripts Active Vancomycin Hcl 125 Mg Capsule 1 Cap PO QID 10 Days Potassium Chloride (Potassium Chloride) 20 Meq Tablet.er 20 Meq PO BIDAC 30 Days Reglan (Metoclopramide Hcl) 10 Mg Tablet 10 Mg PO TID PRN Compazine (Prochlorperazine Maleate) 10 Mg Tablet 1 Tab PO Q6HRS Ondansetron Odt (Ondansetron) 4 Mg Tab.rapdis 1 Tab PO PRN Q6-8HRS Amitriptyline Hcl 10 Mg Tablet 1 Tab PO QHS 90 Days Celexa (Citalopram Hydrobromide) 20 Mg Tablet 1 Tab PO QHS Reported Fenofibrate (Fenofibrate,Micronized) 134 Mg Capsule 134 Mg PO DAILY Nexium Capsule (Esomeprazole Magnesium) 40 Mg Capsule.dr 1 Cap PO DAILY Vitals/I & O Vital Sign - Last 24 Hours 12/07/20 12/07/20 12/07/20 12/07/20 09:00 09:07 09:15 09:30 Temp 98.9 98.5 97.8 Pulse 106 94 94 Resp 14 18 14 14 B/P (MAP) 123/93 148/94 Pulse Ox 99 100 99 99 O2 Delivery Ventilator Ventilator Ventilator Ventilator O2 Flow Rate 40.0 12/07/20 12/07/20 12/07/20 12/07/20 09:37 09:45 09:45 10:00 Temp 97.0 96.8 Pulse 94 80 Resp 14 14 14 B/P (MAP) 128/95 109/86 Pulse Ox 99 100 99 99 O2 Delivery Ventilator Ventilator Ventilator Ventilator O2 Flow Rate 35.0 12/07/20 12/07/20 12/07/20 12/07/20 10:15 10:30 10:45 11:00 Temp 96.7 95.9 95.0 93.0 Pulse 74 76 74 70 Resp 14 14 14 14 B/P (MAP) 102/82 110/85 117/85 124/80 Pulse Ox 100 100 100 100 O2 Delivery Ventilator Ventilator Ventilator Ventilator 12/07/20 12/07/20 12/07/20 12/07/20 11:15 11:31 12:00 12:00 Temp 93.0 Pulse 70 Resp 14 B/P (MAP) 128/84 Pulse Ox 100 100 O2 Delivery Ventilator Ventilator Mechanical Ventilator 12/07/20 12/07/20 12/07/20 12/07/20 13:05 13:23 13:45 14:05 Temp 91.4 92.1 Pulse 66 66 62 Resp 14 14 B/P (MAP) 142/98 142/98 (113) 142/98 Pulse Ox 100 100 100 O2 Delivery Ventilator Ventilator Ventilator 12/07/20 12/07/20 12/07/20 12/07/20 14:58 15:49 15:55 15:56 Temp 91.7 Pulse 58 55 Resp 14 B/P (MAP) 124/86 Pulse Ox 100 100 O2 Delivery Ventilator Ventilator Mechanical Ventilator 12/07/20 12/07/20 12/07/20 12/07/20 16:04 16:37 16:49 17:06 Temp 91.5 92.1 Pulse 60 62 Resp 14 14 14 B/P (MAP) 135/97 125/87 Pulse Ox 100 100 100 100 O2 Delivery Ventilator Ventilator Ventilator Ventilator 12/07/20 12/07/20 12/07/20 12/07/20 17:07 17:49 19:00 19:45 Temp 92.5 91.0 Pulse 61 50 55 Resp 14 14 14 B/P (MAP) 109/74 109/74 97/67 (77) Pulse Ox 100 100 100 O2 Delivery Ventilator Ventilator Ventilator 12/07/20 12/07/20 12/07/20 12/07/20 19:45 20:00 20:00 20:20 Temp 90.6 90.6 90.6 Pulse 49 47 Resp 14 14 B/P (MAP) 98/65 99/66 (77) Pulse Ox 100 100 100 O2 Delivery Mechanical Ventilator Ventilator Ventilator Ventilator 12/07/20 12/07/20 12/07/20 12/07/20 21:00 22:00 22:16 23:00 Temp 89.9 90.5 90.8 Pulse 47 53 52 Resp 14 14 14 B/P (MAP) 93/60 94/62 88/58 Pulse Ox 100 100 100 100 O2 Delivery Ventilator Ventilator Ventilator Ventilator 12/07/20 12/08/20 12/08/20 12/08/20 23:59 00:00 00:00 00:00 Temp 90.8 91.0 91.0 Pulse 50 50 Resp 14 14 B/P (MAP) 92/58 91/57 (68) Pulse Ox 100 100 100 O2 Delivery Ventilator Ventilator Mechanical Ventilator Ventilator 12/08/20 12/08/20 12/08/20 12/08/20 00:00 00:28 00:58 01:00 Temp 91.4 Pulse 50 66 Resp 14 B/P (MAP) 90/57 (68) 133/88 Pulse Ox 100 100 100 O2 Delivery Ventilator O2 Flow Rate 35.0 35.0 12/08/20 12/08/20 12/08/20 12/08/20 02:00 03:00 03:20 04:00 Temp 92.3 93.2 92.2 Pulse 61 56 55 Resp 14 14 14 B/P (MAP) 113/74 107/65 116/72 Pulse Ox 100 100 100 100 O2 Delivery Ventilator Ventilator Ventilator Ventilator 12/08/20 12/08/20 12/08/20 12/08/20 04:00 04:00 04:00 05:00 Temp 91.9 91.0 91.9 Pulse 59 59 55 Resp 14 14 B/P (MAP) 119/77 (91) 114/72 (86) 101/64 Pulse Ox 100 100 O2 Delivery Ventilator Mechanical Ventilator Ventilator 12/08/20 12/08/20 12/08/20 12/08/20 06:00 07:00 07:40 08:00 Temp 89.9 Pulse 45 57 61 65 Resp 14 14 B/P (MAP) 81/47 81/47 102/54 (70) 108/50 (69) Pulse Ox 100 100 O2 Delivery Ventilator Ventilator 12/08/20 12/08/20 12/08/20 08:00 08:00 08:19 Pulse 57 Resp 14 B/P (MAP) 81/47 Pulse Ox 100 100 O2 Delivery Mechanical Ventilator Ventilator Ventilator Intake and Output 12/07/20 12/07/20 12/08/20 15:00 23:00 07:00 Intake Total 1700 ml 191 ml 1034 ml Output Total 490 ml 440 ml 255 ml Balance 1210 ml -249 ml 779 ml Nutrition Consultation Dietary Evaluation: Recommendations by RD: Dietary education by RD, PPN/TPN Comments: If TF are appropriate REC Vital HP @ goal rate 35ml/hr with 100 q4 flushes If TF can not be initiated REC TPN: 195g dextrose and 70g AA Expected Outcomes/Goals: Initiate nutrition support when pt is stable Interpretation of weight loss: >10% in 6 months Malnutrition Findings: Food and Nutrition Intake (Sev: <50% est energy req 5days Weight Status: Appropriate Justicifation of Admission Dx: Justifications for Admission: Justification of Admission Dx: Yes CHF: Sev. Electrolyte Abnormal MYA CASTELLON MD Dec 08, 2020 08:55
[2020-12-08] MEDS ORDERED: DEXTROSE 50% 25 GM / 50ML DISP.SYRIN. IV PRN (10:00)
--- NOTE | 2020-12-08 10:06 | PDOC ---
Date of Service: DATE: 12/08/20 TIME: 09:59 Objective: Objective: D/w nursing - re-warming protocol. Vital Signs: Vital Signs Date Time Temp Pulse Resp B/P (MAP) Pulse Ox O2 Delivery O2 Flow Rate FiO2 12/08/20 09:00 94.6 57 14 81/47 100 Ventilator 12/08/20 00:58 35.0 Labs: Laboratory Tests Test 12/07/20 10:40 12/07/20 13:15 12/07/20 15:08 12/07/20 16:16 White Blood Count 26.6 x10^3/uL Red Blood Count 4.06 x10^6/uL Hemoglobin 13.1 g/dL Hematocrit 39.5 % Mean Corpuscular Volume 97 fL Mean Corpuscular Hemoglobin 32 pg Mean Corpuscular Hemoglobin Concent 33 g/dL Red Cell Distribution Width 19.2 % Platelet Count 264 x10^3/uL Neutrophils (%) (Auto) 85 % Lymphocytes (%) (Auto) 6 % Monocytes (%) (Auto) 9 % Eosinophils (%) (Auto) 0 % Basophils (%) (Auto) 0 % Neutrophils # (Auto) 22.6 x10^3/uL Lymphocytes # (Auto) 1.6 x10^3/uL Monocytes # (Auto) 2.3 x10^3/uL Eosinophils # (Auto) 0.0 x10^3/uL Basophils # (Auto) 0.0 x10^3/uL Segmented Neutrophils % 87 % Band Neutrophils % 4 % Lymphocytes % 7 % Monocytes % 2 % Platelet Estimate Adequate Anisocytosis Present Prothrombin Time 14.3 SEC Prothromb Time International Ratio 1.2 Activated Partial Thromboplast Time 25 SEC Sodium Level 139 mmol/L Potassium Level 3.0 mmol/L Chloride Level 103 mmol/L Carbon Dioxide Level 27 mmol/L Anion Gap 9 Blood Urea Nitrogen 4 mg/dL Creatinine 0.7 mg/dL Estimated GFR (Cockcroft-Gault) 94.7 Glucose Level 145 mg/dL Calcium Level 7.5 mg/dL Phosphorus Level 2.2 mg/dL Magnesium Level 3.9 mg/dL Glucose (Fingerstick) 122 mg/dL 124 mg/dL 131 mg/dL Test 12/07/20 17:00 12/07/20 21:09 12/07/20 22:53 12/08/20 04:13 White Blood Count 22.4 x10^3/uL 15.6 x10^3/uL Red Blood Count 4.02 x10^6/uL 3.65 x10^6/uL Hemoglobin 13.2 g/dL 12.0 g/dL Hematocrit 38.9 % 35.3 % Mean Corpuscular Volume 97 fL 97 fL Mean Corpuscular Hemoglobin 33 pg 33 pg Mean Corpuscular Hemoglobin Concent 34 g/dL 34 g/dL Red Cell Distribution Width 18.9 % 18.8 % Platelet Count 260 x10^3/uL 226 x10^3/uL Neutrophils (%) (Auto) 79 % 70 % Lymphocytes (%) (Auto) 11 % 21 % Monocytes (%) (Auto) 9 % 9 % Eosinophils (%) (Auto) 0 % 0 % Basophils (%) (Auto) 1 % 0 % Neutrophils # (Auto) 17.6 x10^3/uL 10.8 x10^3/uL Lymphocytes # (Auto) 2.5 x10^3/uL 3.2 x10^3/uL Monocytes # (Auto) 2.1 x10^3/uL 1.4 x10^3/uL Eosinophils # (Auto) 0.0 x10^3/uL 0.0 x10^3/uL Basophils # (Auto) 0.1 x10^3/uL 0.1 x10^3/uL Segmented Neutrophils % 84 % Lymphocytes % 9 % Monocytes % 7 % Platelet Estimate Adequate Anisocytosis Slight Prothrombin Time 13.9 SEC 14.3 SEC Prothromb Time International Ratio 1.1 1.2 Activated Partial Thromboplast Time 30 SEC 43 SEC Sodium Level 142 mmol/L 144 mmol/L Potassium Level 3.6 mmol/L 2.7 mmol/L Chloride Level 106 mmol/L 108 mmol/L Carbon Dioxide Level 25 mmol/L 26 mmol/L Anion Gap 11 10 Blood Urea Nitrogen 4 mg/dL 4 mg/dL Creatinine 0.8 mg/dL 0.7 mg/dL Estimated GFR (Cockcroft-Gault) 81.2 94.7 Glucose Level 113 mg/dL 99 mg/dL Calcium Level 6.9 mg/dL 6.9 mg/dL Phosphorus Level 5.7 mg/dL 3.5 mg/dL Magnesium Level 3.3 mg/dL 3.0 mg/dL Glucose (Fingerstick) 112 mg/dL 83 mg/dL Test 4/15/21 05:20 12/08/20 07:22 12/08/20 07:50 12/08/20 08:30 White Blood Count 12.5 x10^3/uL Red Blood Count 3.74 x10^6/uL Hemoglobin 12.2 g/dL Hematocrit 36.6 % Mean Corpuscular Volume 98 fL Mean Corpuscular Hemoglobin 33 pg Mean Corpuscular Hemoglobin Concent 33 g/dL Red Cell Distribution Width 18.9 % Platelet Count 208 x10^3/uL Neutrophils (%) (Auto) 67 % Lymphocytes (%) (Auto) 20 % Monocytes (%) (Auto) 12 % Eosinophils (%) (Auto) 0 % Basophils (%) (Auto) 0 % Neutrophils # (Auto) 8.4 x10^3/uL Lymphocytes # (Auto) 2.5 x10^3/uL Monocytes # (Auto) 1.5 x10^3/uL Eosinophils # (Auto) 0.1 x10^3/uL Basophils # (Auto) 0.0 x10^3/uL Prothrombin Time 13.3 SEC Prothromb Time International Ratio 1.1 Activated Partial Thromboplast Time 42 SEC Sodium Level 144 mmol/L Potassium Level 3.1 mmol/L 2.8 mmol/L Chloride Level 110 mmol/L Carbon Dioxide Level 24 mmol/L Anion Gap 10 Blood Urea Nitrogen 5 mg/dL Creatinine 1.0 mg/dL Estimated GFR (Cockcroft-Gault) 62.7 Glucose Level 92 mg/dL Calcium Level 6.7 mg/dL Phosphorus Level 3.5 mg/dL Magnesium Level 2.7 mg/dL Glucose (Fingerstick) 88 mg/dL O2 Saturation 99 % Arterial Blood pH 7.36 Arterial Blood pH (Temp corrected) 7.40 Arterial Blood pCO2 at Patient Temp 40 mmHg Arterial Blood pCO2 (Temp correct) 35 mmHg Arterial Blood pO2 at Patient Temp 148 mmHg Arterial Blood pO2 (Temp corrected) 130 mmHg Arterial Blood HCO3 22 mmol/L Arterial Blood Base Excess -3 mmol/L FiO2 35/vent Test 12/08/20 08:35 12/08/20 09:00 12/08/20 09:48 Glucose (Fingerstick) 79 mg/dL 51 mg/dL SARS-CoV-2 Antigen (Rapid) Negative URINE CULTURE Final Final No Growth on 12/08/20 at 0917 Imaging: Echo <Conclusion> The left ventricular systolic function is normal. The Ejection Fraction is 55%. There is normal LV segmental wall motion. Trace mitral regurgitation. Trace tricuspid regurgitation with an estimated PAP of 22 mmHg. There is no evidence of significant pericardial effusion. PE: GEN: intubated LUNGS: vent, clear HEART: RRR ABD: soft, non-distended NEURO/PSYCH: sedated A/P: S/p arrest Hypokalemia H/o GERD, gastroparesis, C Diff, hepatic steatosis -- Continue support, will follow. Justicifation of Admission Dx: Justifications for Admission: Justification of Admission Dx: Yes CHF: Sev. Electrolyte Abnormal ARUN MILNER Dec 08, 2020 10:06
--- NOTE | 2020-12-08 11:59 | PDOC ---
REI PERSAUD BRUCE 12/08/20 1159: CARDIO Progress Notes Date and Time Date of Service 12/08/20 Time of Evaluation 1150 Subjective Subjective: Other (intubated, sedated ) Vitals Vitals Vital Signs Date Time Temp Pulse Resp B/P (MAP) Pulse Ox O2 Delivery O2 Flow Rate FiO2 12/08/20 11:00 94.6 54 14 94/48 100 Ventilator 12/08/20 00:58 35.0 Weight Weight [ ] Input and Output Intake and Output Intake and Output 12/08/20 07:00 Intake Total 2925 ml Output Total 1185 ml Balance 1740 ml Intake IV Total 2925 ml Output Urine Total 1185 ml Laboratory Labs Laboratory Tests Test 12/07/20 13:15 12/07/20 15:08 12/07/20 16:16 12/07/20 17:00 Glucose (Fingerstick) 122 mg/dL (70-99) 124 mg/dL (70-99) 131 mg/dL (70-99) White Blood Count 22.4 x10^3/uL (4.0-11.0) Red Blood Count 4.02 x10^6/uL (3.50-5.40) Hemoglobin 13.2 g/dL (12.0-15.5) Hematocrit 38.9 % (36.0-47.0) Mean Corpuscular Volume 97 fL (79-100) Mean Corpuscular Hemoglobin 33 pg (25-35) Mean Corpuscular Hemoglobin Concent 34 g/dL (31-37) Red Cell Distribution Width 18.9 % (11.5-14.5) Platelet Count 260 x10^3/uL (140-400) Neutrophils (%) (Auto) 79 % (31-73) Lymphocytes (%) (Auto) 11 % (24-48) Monocytes (%) (Auto) 9 % (0-9) Eosinophils (%) (Auto) 0 % (0-3) Basophils (%) (Auto) 1 % (0-3) Neutrophils # (Auto) 17.6 x10^3/uL (1.8-7.7) Lymphocytes # (Auto) 2.5 x10^3/uL (1.0-4.8) Monocytes # (Auto) 2.1 x10^3/uL (0.0-1.1) Eosinophils # (Auto) 0.0 x10^3/uL (0.0-0.7) Basophils # (Auto) 0.1 x10^3/uL (0.0-0.2) Segmented Neutrophils % 84 % (35-66) Lymphocytes % 9 % (24-48) Monocytes % 7 % (0-10) Platelet Estimate Adequate (ADEQUATE) Anisocytosis Slight Prothrombin Time 13.9 SEC (11.7-14.0) Prothromb Time International Ratio 1.1 (0.8-1.1) Activated Partial Thromboplast Time 30 SEC (24-38) Sodium Level 142 mmol/L (136-145) Potassium Level 3.6 mmol/L (3.5-5.1) Chloride Level 106 mmol/L (98-107) Carbon Dioxide Level 25 mmol/L (21-32) Anion Gap 11 (6-14) Blood Urea Nitrogen 4 mg/dL (7-20) Creatinine 0.8 mg/dL (0.6-1.0) Estimated GFR (Cockcroft-Gault) 81.2 Glucose Level 113 mg/dL (70-99) Calcium Level 6.9 mg/dL (8.5-10.1) Phosphorus Level 5.7 mg/dL (2.6-4.7) Magnesium Level 3.3 mg/dL (1.8-2.4) Test 12/07/20 21:09 12/07/20 22:53 12/08/20 04:13 12/08/20 05:20 Glucose (Fingerstick) 112 mg/dL (70-99) 83 mg/dL (70-99) White Blood Count 15.6 x10^3/uL (4.0-11.0) 12.5 x10^3/uL (4.0-11.0) Red Blood Count 3.65 x10^6/uL (3.50-5.40) 3.74 x10^6/uL (3.50-5.40) Hemoglobin 12.0 g/dL (12.0-15.5) 12.2 g/dL (12.0-15.5) Hematocrit 35.3 % (36.0-47.0) 36.6 % (36.0-47.0) Mean Corpuscular Volume 97 fL (79-100) 98 fL (79-100) Mean Corpuscular Hemoglobin 33 pg (25-35) 33 pg (25-35) Mean Corpuscular Hemoglobin Concent 34 g/dL (31-37) 33 g/dL (31-37) Red Cell Distribution Width 18.8 % (11.5-14.5) 18.9 % (11.5-14.5) Platelet Count 226 x10^3/uL (140-400) 208 x10^3/uL (140-400) Neutrophils (%) (Auto) 70 % (31-73) 67 % (31-73) Lymphocytes (%) (Auto) 21 % (24-48) 20 % (24-48) Monocytes (%) (Auto) 9 % (0-9) 12 % (0-9) Eosinophils (%) (Auto) 0 % (0-3) 0 % (0-3) Basophils (%) (Auto) 0 % (0-3) 0 % (0-3) Neutrophils # (Auto) 10.8 x10^3/uL (1.8-7.7) 8.4 x10^3/uL (1.8-7.7) Lymphocytes # (Auto) 3.2 x10^3/uL (1.0-4.8) 2.5 x10^3/uL (1.0-4.8) Monocytes # (Auto) 1.4 x10^3/uL (0.0-1.1) 1.5 x10^3/uL (0.0-1.1) Eosinophils # (Auto) 0.0 x10^3/uL (0.0-0.7) 0.1 x10^3/uL (0.0-0.7) Basophils # (Auto) 0.1 x10^3/uL (0.0-0.2) 0.0 x10^3/uL (0.0-0.2) Prothrombin Time 14.3 SEC (11.7-14.0) 13.3 SEC (11.7-14.0) Prothromb Time International Ratio 1.2 (0.8-1.1) 1.1 (0.8-1.1) Activated Partial Thromboplast Time 43 SEC (24-38) 42 SEC (24-38) Sodium Level 144 mmol/L (136-145) 144 mmol/L (136-145) Potassium Level 2.7 mmol/L (3.5-5.1) 3.1 mmol/L (3.5-5.1) Chloride Level 108 mmol/L (98-107) 110 mmol/L (98-107) Carbon Dioxide Level 26 mmol/L (21-32) 24 mmol/L (21-32) Anion Gap 10 (6-14) 10 (6-14) Blood Urea Nitrogen 4 mg/dL (7-20) 5 mg/dL (7-20) Creatinine 0.7 mg/dL (0.6-1.0) 1.0 mg/dL (0.6-1.0) Estimated GFR (Cockcroft-Gault) 94.7 62.7 Glucose Level 99 mg/dL (70-99) 92 mg/dL (70-99) Calcium Level 6.9 mg/dL (8.5-10.1) 6.7 mg/dL (8.5-10.1) Phosphorus Level 3.5 mg/dL (2.6-4.7) 3.5 mg/dL (2.6-4.7) Magnesium Level 3.0 mg/dL (1.8-2.4) 2.7 mg/dL (1.8-2.4) Test 12/08/20 07:22 12/08/20 07:50 12/08/20 08:30 12/08/20 08:35 Glucose (Fingerstick) 88 mg/dL (70-99) 79 mg/dL (70-99) O2 Saturation 99 % (92-99) Arterial Blood pH 7.36 (7.35-7.45) Arterial Blood pH (Temp corrected) 7.40 Arterial Blood pCO2 at Patient Temp 40 mmHg (35-46) Arterial Blood pCO2 (Temp correct) 35 mmHg Arterial Blood pO2 at Patient Temp 148 mmHg (85-108) Arterial Blood pO2 (Temp corrected) 130 mmHg Arterial Blood HCO3 22 mmol/L (21-28) Arterial Blood Base Excess -3 mmol/L (-3-3) FiO2 35/vent Potassium Level 2.8 mmol/L (3.5-5.1) Test 12/08/20 09:00 12/08/20 09:48 12/08/20 10:52 12/08/20 11:41 SARS-CoV-2 Antigen (Rapid) Negative (NEGATIVE) Glucose (Fingerstick) 51 mg/dL (70-99) 183 mg/dL (70-99) 123 mg/dL (70-99) Microbiology Micro Microbiology 12/07/20 Urine Culture - Final, Complete Physical Exam HEENT: Neck Supple W Full Motion Chest: Symmetric LUNGS: Other (mechanical vent) Heart: S1S2, RRR, no murmurs Abdomen: Other (soft ) Extremities: No Edema Neurology: other (sedated ) Assessment Assessment 1. Nausea/vomiting, gastroparesis; as per GI 2. VFIB arrest in setting of significant electrolyte abnormalities and QT prolongation. QTC 506. Approximately 10 mins prior to ROSC. No further arrhythmias noted on tele. hypothermia protocol initiated. Echo with preserved LV systolic function 3. Severe hypokalemia, hypomagnesemia; replacement ongoing 4. Acute respiratory failure secondary to cardiac arrest; s/p intubation 5. Leukocytosis 6. Anxiety, depression Recommendations Ongoing electrolyte replacement Rewarming Will hold off on left heart cath with ongoing severe hypokalemia and rewarming. Overall low suspicion for ischemic disease. Echo without with preserved LV systolic function and no WMA. Supportive care Justicifation of Admission Dx: Justifications for Admission: Justification of Admission Dx: Yes CHF: Sev. Electrolyte Abnormal TANIA HUMPHREY MD 12/08/20 6370: CARDIO Progress Notes Assessment Assessment Patient seen and evaluated. I agree with our nurse practitioners assessment and plan. Nausea/vomiting, gastroparesis; as per GI VFIB arrest in setting of significant electrolyte abnormalities and QT prolongation. QTC 506. Approximately 10 mins prior to ROSC. No further arrhythmias noted on tele. hypothermia protocol initiated. Echo with preserved LV systolic function. Holding on heart catheterization due to ongoing hypokalemia and rewarming. Possible cath tomorrow. Severe hypokalemia, hypomagnesemia; replacement ongoing Acute respiratory failure secondary to cardiac arrest; s/p intubation REI PERSAUD APRN Dec 08, 2020 11:59 TANIA HUMPHREY MD Dec 08, 2020 17:55
[2020-12-08] MEDS: IV NORMAL SALINE 1000ML BAG 1,000 ML IV SCH (13:13)
[2020-12-08 13:19] LABS: BASO % 0 % (0-3); EOS # 0.1 x10^3/uL (0.0-0.7); EOS % 1 % (0-3); HEMATOCRIT 32.1 % (36.0-47.0); HEMOGLOBIN 10.7 g/dL (12.0-15.5); LYMPH # 2.3 x10^3/uL (1.0-4.8); LYMPH % 22 % (24-48); MEAN CORPUSCULAR HEMOGLOBIN 33 pg (25-35); MEAN CORPUSCULAR HGB CONC 34 g/dL (31-37); MEAN CORPUSCULAR VOLUME 97 fL (79-100); MONO # 1.2 x10^3/uL (0.0-1.1); MONO % 11 % (0-9); NEUT # 6.8 x10^3/uL (1.8-7.7); NEUT % 65 % (31-73); PLATELET COUNT 196 x10^3/uL (140-400); RED BLOOD COUNT 3.31 x10^6/uL (3.50-5.40); RED CELL DISTRIBUTION WIDTH 18.5 % (11.5-14.5); WHITE BLOOD COUNT 10.5 x10^3/uL (4.0-11.0)
--- NOTE | 2020-12-08 13:25 | PDOC2 ---
NEUROLOGY CONSULT Date of Service DOS: DATE: 12/08/20 TIME: 13:18 Reason for Consult Reason for Consult: anoxic enceph Referring Physician Referring Physician: Dr. Alba Source Source: Chart review History of Present Illness History of Present Illness The patient is a 35-year-old female who was complaining of 2 days of nausea and vomiting, came to the emergency department yesterday and suddenly collapsed in the waiting room. She was in torsades which converted to ventricular fibrillation. She was placed on hypothermia protocol and is still being rewarmed today. There is no history of neurological issue such as seizures. 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 Current Medications Current Medications Current Medications Ringer's Solution 500 ml @ 500 mls/hr 1X ONCE IV ; Start 12/07/20 at 05:00; Stop 12/07/20 at 05:59; Status DC Ringer's Solution 500 ml @ 500 mls/hr 1X ONCE IV ; Start 12/07/20 at 05:00; Stop 12/07/20 at 05:59; Status DC Metoclopramide HCl (Reglan Vial) 10 mg 1X ONCE IVP ; Start 12/07/20 at 05:30; Stop 12/07/20 at 05:05; Status DC Ringer's Solution 500 ml @ 500 mls/hr 1X ONCE IV ; Start 12/07/20 at 05:30; Stop 12/07/20 at 06:29; Status DC Haloperidol Lactate (Haldol Inj) 5 mg STK-MED ONCE .ROUTE ; Start 12/07/20 at 05:05; Stop 12/07/20 at 05:05; Status DC Haloperidol Lactate (Haldol Inj) 5 mg 1X ONCE IVP Last administered on 12/07/20at 05:14; Start 12/07/20 at 05:30; Stop 12/07/20 at 05:31; Status DC Diphenhydramine HCl (Benadryl) 50 mg 1X ONCE IVP Last administered on 12/07/20at 05:14; Start 12/07/20 at 05:30; Stop 12/07/20 at 05:31; Status DC Ringer's Solution 500 ml @ 1,000 mls/hr 1X ONCE IV Last administered on 12/07/20at 05:13; Start 12/07/20 at 05:30; Stop 12/07/20 at 05:59; Status DC Propofol 100 ml @ As Directed STK-MED ONCE IV ; Start 12/07/20 at 05:56; Stop 12/07/20 at 05:56; Status DC Potassium Chloride/Sodium Chloride 1,000 ml @ 125 mls/hr Q8H IV Last administered on 12/07/20at 06:30; Start 12/07/20 at 06:30; Stop 12/07/20 at 14:29; Status DC Midazolam HCl (Versed) 5 mg STK-MED ONCE .ROUTE ; Start 12/07/20 at 06:29; Stop 12/07/20 at 06:30; Status DC Fentanyl Citrate 30 ml @ 0 mls/hr CONT PRN IV SEE PROTOCOL; Start 12/07/20 at 07:00; Status Cancel Chlorhexidine Gluconate (Peridex) 15 ml BID MM Last administered on 12/07/20at 09:00; Start 12/07/20 at 09:00; Stop 12/07/20 at 18:44; Status DC Midazolam HCl 100 ml @ 0 mls/hr CONT PRN IV SEE PROTOCOL Last administered on 12/07/20at 20:29; Start 12/07/20 at 07:00 Magnesium Sulfate 100 ml @ 25 mls/hr 1X ONCE IV Last administered on 12/07/20at 08:47; Start 12/07/20 at 07:30; Stop 12/07/20 at 11:29; Status DC Famotidine (Pepcid Vial) 20 mg BID IVP ; Start 12/07/20 at 09:00; Stop 12/07/20 at 10:56; Status DC Buspirone HCl (Buspar) 30 mg Q8H NG Last administered on 12/08/20at 08:19; Start 12/07/20 at 08:00; Stop 12/09/20 at 00:01 Acetaminophen (Tylenol) 650 mg Q4H NG Last administered on 12/08/20at 13:12; Start 12/07/20 at 08:00 Glycerin/ Hypromellose/ Polyethylene (Artificial Tears) 1 drop Q6HRS OU Last administered on 12/07/20 17:25; Start 12/07/20 at 12:00; Stop 12/07/20 at 18:44; Status DC Glycerin/ Hypromellose/ Polyethylene (Artificial Tears) 1 drop PRN Q15MIN PRN OU DRY EYE; Start 12/07/20 at 08:00 Heparin Sodium (Porcine) (Heparin Sodium) 5,000 unit BID SQ Last administered on 12/08/20at 08:20; Start 12/07/20 at 09:00 Pantoprazole Sodium (PROTONIX VIAL for IV PUSH) 40 mg DAILY IVP Last adminis tered on 12/08/20 08:19; Start 12/07/20 at 09:00 Fentanyl Citrate 30 ml @ 0 mls/hr CONT PRN IV PER PROTOCOL. Last administered on 12/08/20 08:19; Start 12/07/20 at 08:00 Propofol 100 ml @ 0 mls/hr CONT PRN IV PER PROTOCOL. Last administered on 12/08/20 13:12; Start 12/07/20 at 08:00 Midazolam HCl 100 ml @ 0 mls/hr CONT PRN IV PER PROTOCOL; Start 12/07/20 at 08:00; Status UNV Vecuronium [place] (Norcuron Bolus) 6 mg PRN Q1HR PRN IV SHIVERING Last administered on 12/07/20 08:47; Start 12/07/20 at 08:00 Potassium Chloride/Water 100 ml @ 100 mls/hr Q1H IV Last administered on 12/07/20 10:49; Start 12/07/20 at 09:00; Stop 12/07/20 at 12:59; Status DC Potassium Chloride/Water 100 ml @ 100 mls/hr Q1H IV ; Start 12/07/20 at 12:00; Stop 12/07/20 at 14:59; Status DC Potassium Phosphate 10 mmol/ Sodium Chloride 103.3333 ml @ 51.667 m... Q2H IV Last administered on 12/07/20at 12:00; Start 12/07/20 at 10:00; Stop 12/07/20 at 13:59; Status DC Potassium Phosphate 10 mmol/ Sodium Chloride 103.3333 ml @ 51.667 m... Q2H IV Last administered on 12/07/20at 13:43; Start 12/07/20 at 12:00; Stop 12/07/20 at 15:59; Status DC Sodium Bicarbonate (Sodium Bicarb Adult 8.4% Syr) 50 meq STK-MED ONCE .ROUTE ; Start 12/07/20 at 12:00; Stop 12/07/20 at 15:47; Status DC Amiodarone HCl (Cordarone) 300 mg STK-MED ONCE .ROUTE ; Start 12/07/20 at 12:00; Stop 12/07/20 at 15:47; Status DC Epinephrine HCl (EPINEPHrine SYRINGE) 3 mg STK-MED ONCE .ROUTE ; Start 12/07/20 at 12:00; Stop 12/07/20 at 15:47; Status DC Midazolam HCl (Versed) 5 mg STK-MED ONCE .ROUTE ; Start 12/07/20 at 12:00; Stop 12/07/20 at 15:47; Status DC Magnesium Sulfate/ Dextrose (Magnesium Sulfate PREMIX 1GM) 1 gm STK-MED ONCE IV ; Start 12/07/20 at 12:00; Stop 12/07/20 at 15:47; Status DC Sodium Chloride 1,000 ml @ 50 mls/hr Q20H IV Last administered on 12/08/20at 13:13; Start 12/07/20 at 17:30 Potassium Chloride/Water 100 ml @ 100 mls/hr 1X ONCE IV Last administered on 12/07/20at 23:35; Start 12/07/20 at 23:30; Stop 12/08/20 at 00:29; Status DC Dopamine HCl/ Dextrose 250 ml @ 13.481 mls/ hr CONT PRN IV SEE I/O RECORD; Start 12/08/20 at 06:45 Dextrose (Dextrose 50%-Water Syringe) 12.5 gm PRN Q15MIN PRN IV SEE COMMENTS Last administered on 12/08/20at 10:04; Start 12/08/20 at 10:00 Active Scripts Active Vancomycin Hcl 125 Mg Capsule 1 Cap PO QID 10 Days Potassium Chloride (Potassium Chloride) 20 Meq Tablet.er 20 Meq PO BIDAC 30 Days Reglan (Metoclopramide Hcl) 10 Mg Tablet 10 Mg PO TID PRN Compazine (Prochlorperazine Maleate) 10 Mg Tablet 1 Tab PO Q6HRS Ondansetron Odt (Ondansetron) 4 Mg Tab.rapdis 1 Tab PO PRN Q6-8HRS Amitriptyline Hcl 10 Mg Tablet 1 Tab PO QHS 90 Days Celexa (Citalopram Hydrobromide) 20 Mg Tablet 1 Tab PO QHS Reported Fenofibrate (Fenofibrate,Micronized) 134 Mg Capsule 134 Mg PO DAILY Nexium Capsule (Esomeprazole Magnesium) 40 Mg Capsule.dr 1 Cap PO DAILY Allergies Allergies: Coded Allergies: Corticosteroids (Glucocorticoids) (Verified Allergy, Severe, facial swelling, 05/25/20) Penicillins (Verified Allergy, Intermediate, hives, 05/25/20) I S O L A T I O N *CONTACT* (Verified Allergy, Unknown, 06/03/19) mrsa hydrocodone (Verified Adverse Reaction, Mild, Nausea, 05/25/20) ROS Review of System Unobtainable Physical Exam Physical Examination General: Well-developed, well-nourished white female in no acute distress HEENT: Normocephalic andatraumatic. Temporal arteriespulsatile and nontender. Neck: Supple without bruit, no meningismus Musculoskeletal: Stability:see neurologic. Gait exam:see neurologic. Tone:see neurologic.Strength:see neurologic. Neurological: Mental Status:Intubated, sedated, temperature 35 degrees. No response to voice. Cranial Nerves:Pupils reactive to light. There is no facial asymmetry. All other cranial related problems are negative except as mentioned before.Reflexes:2+ and symmetric with flexor plantar responses. Motor:Slight posturing to pain. Coordination and gait:untestable. Sensory:untestable. Vitals VITALS Vital Signs Date Time Temp Pulse Resp B/P (MAP) Pulse Ox O2 Delivery O2 Flow Rate FiO2 12/08/20 11:56 100 Ventilator 12/08/20 11:00 94.6 54 14 94/48 12/08/20 00:58 35.0 Labs Labs Laboratory Tests Test 12/07/20 05:01 12/07/20 05:22 12/07/20 06:00 12/07/20 09:27 Magnesium Level 1.6 mg/dL (1.8-2.4) Troponin I Quantitative < 0.017 ng/mL (0.000-0.055) White Blood Count 15.1 x10^3/uL (4.0-11.0) Red Blood Count 4.57 x10^6/uL (3.50-5.40) Hemoglobin 14.9 g/dL (12.0-15.5) Hematocrit 43.6 % (36.0-47.0) Mean Corpuscular Volume 95 fL (79-100) Mean Corpuscular Hemoglobin 33 pg (25-35) Mean Corpuscular Hemoglobin Concent 34 g/dL (31-37) Red Cell Distribution Width 19.2 % (11.5-14.5) Platelet Count 338 x10^3/uL (140-400) Neutrophils (%) (Auto) 75 % (31-73) Lymphocytes (%) (Auto) 16 % (24-48) Monocytes (%) (Auto) 8 % (0-9) Eosinophils (%) (Auto) 0 % (0-3) Basophils (%) (Auto) 1 % (0-3) Neutrophils # (Auto) 11.2 x10^3/uL (1.8-7.7) Lymphocytes # (Auto) 2.4 x10^3/uL (1.0-4.8) Monocytes # (Auto) 1.2 x10^3/uL (0.0-1.1) Eosinophils # (Auto) 0.0 x10^3/uL (0.0-0.7) Basophils # (Auto) 0.1 x10^3/uL (0.0-0.2) Prothrombin Time 13.0 SEC (11.7-14.0) Prothromb Time International Ratio 1.0 (0.8-1.1) Activated Partial Thromboplast Time 25 SEC (24-38) D-Dimer (Francia) < 0.27 ug/mlFEU Sodium Level 138 mmol/L (136-145) Potassium Level 2.5 mmol/L (3.5-5.1) Chloride Level 95 mmol/L (98-107) Carbon Dioxide Level 28 mmol/L (21-32) Anion Gap 15 (6-14) Blood Urea Nitrogen 5 mg/dL (7-20) Creatinine 1.0 mg/dL (0.6-1.0) Estimated GFR (Cockcroft-Gault) 62.7 BUN/Creatinine Ratio 5 (6-20) Glucose Level 141 mg/dL (70-99) Calcium Level 9.2 mg/dL (8.5-10.1) Phosphorus Level 1.8 mg/dL (2.6-4.7) Total Bilirubin 1.2 mg/dL (0.2-1.0) Aspartate Amino Transf (AST/SGOT) 67 U/L (15-37) Alanine Aminotransferase (ALT/SGPT) 32 U/L (14-59) Alkaline Phosphatase 87 U/L (46-116) Total Protein 7.9 g/dL (6.4-8.2) Albumin 3.5 g/dL (3.4-5.0) Albumin/Globulin Ratio 0.8 (1.0-1.7) Triglycerides Level 118 mg/dL (0-150) Lipase 57 U/L (73-393) Urine Collection Type Unknown Urine Color Wendy Urine Clarity Cloudy Urine pH 6.5 (<5.0-8.0) Urine Specific [place] 1.025 (1.000-1.030) Urine Protein >=300 mg/dL (NEG-TRACE) Urine Glucose (UA) 100 mg/dL (NEG) Urine Ketones (Stick) 40 mg/dL (NEG) Urine Blood Small (NEG) Urine Nitrite Negative (NEG) Urine Bilirubin Small (NEG) Urine Urobilinogen Dipstick 1.0 mg/dL (0.2 mg/dL) Urine Leukocyte Esterase Small (NEG) Urine RBC Occ /HPF (0-2) Urine WBC 5-10 /HPF (0-4) Urine Squamous Epithelial Cells Many /LPF Urine Bacteria Few /HPF (0-FEW) Glucose (Fingerstick) 164 mg/dL (70-99) Test 12/07/20 09:32 12/07/20 09:38 12/07/20 10:40 12/07/20 13:15 Glucose (Fingerstick) 165 mg/dL (70-99) 122 mg/dL (70-99) O2 Saturation 99 % (92-99) Arterial Blood pH 7.46 (7.35-7.45) Arterial Blood pCO2 at Patient Temp 29 mmHg (35-46) Arterial Blood pO2 at Patient Temp 184 mmHg (85-108) Arterial Blood HCO3 20 mmol/L (21-28) Arterial Blood Base Excess -2 mmol/L (-3-3) FiO2 40 White Blood Count 26.6 x10^3/uL (4.0-11.0) Red Blood Count 4.06 x10^6/uL (3.50-5.40) Hemoglobin 13.1 g/dL (12.0-15.5) Hematocrit 39.5 % (36.0-47.0) Mean Corpuscular Volume 97 fL (79-100) Mean Corpuscular Hemoglobin 32 pg (25-35) Mean Corpuscular Hemoglobin Concent 33 g/dL (31-37) Red Cell Distribution Width 19.2 % (11.5-14.5) Platelet Count 264 x10^3/uL (140-400) Neutrophils (%) (Auto) 85 % (31-73) Lymphocytes (%) (Auto) 6 % (24-48) Monocytes (%) (Auto) 9 % (0-9) Eosinophils (%) (Auto) 0 % (0-3) Basophils (%) (Auto) 0 % (0-3) Neutrophils # (Auto) 22.6 x10^3/uL (1.8-7.7) Lymphocytes # (Auto) 1.6 x10^3/uL (1.0-4.8) Monocytes # (Auto) 2.3 x10^3/uL (0.0-1.1) Eosinophils # (Auto) 0.0 x10^3/uL (0.0-0.7) Basophils # (Auto) 0.0 x10^3/uL (0.0-0.2) Segmented Neutrophils % 87 % (35-66) Band Neutrophils % 4 % (0-9) Lymphocytes % 7 % (24-48) Monocytes % 2 % (0-10) Platelet Estimate Adequate (ADEQUATE) Anisocytosis Present Prothrombin Time 14.3 SEC (11.7-14.0) Prothromb Time International Ratio 1.2 (0.8-1.1) Activated Partial Thromboplast Time 25 SEC (24-38) Sodium Level 139 mmol/L (136-145) Potassium Level 3.0 mmol/L (3.5-5.1) Chloride Level 103 mmol/L (98-107) Carbon Dioxide Level 27 mmol/L (21-32) Anion Gap 9 (6-14) Blood Urea Nitrogen 4 mg/dL (7-20) Creatinine 0.7 mg/dL (0.6-1.0) Estimated GFR (Cockcroft-Gault) 94.7 Glucose Level 145 mg/dL (70-99) Calcium Level 7.5 mg/dL (8.5-10.1) Phosphorus Level 2.2 mg/dL (2.6-4.7) Magnesium Level 3.9 mg/dL (1.8-2.4) Test 12/07/20 15:08 12/07/20 16:16 12/07/20 17:00 12/07/20 21:09 Glucose (Fingerstick) 124 mg/dL (70-99) 131 mg/dL (70-99) 112 mg/dL (70-99) White Blood Count 22.4 x10^3/uL (4.0-11.0) Red Blood Count 4.02 x10^6/uL (3.50-5.40) Hemoglobin 13.2 g/dL (12.0-15.5) Hematocrit 38.9 % (36.0-47.0) Mean Corpuscular Volume 97 fL (79-100) Mean Corpuscular Hemoglobin 33 pg (25-35) Mean Corpuscular Hemoglobin Concent 34 g/dL (31-37) Red Cell Distribution Width 18.9 % (11.5-14.5) Platelet Count 260 x10^3/uL (140-400) Neutrophils (%) (Auto) 79 % (31-73) Lymphocytes (%) (Auto) 11 % (24-48) Monocytes (%) (Auto) 9 % (0-9) Eosinophils (%) (Auto) 0 % (0-3) Basophils (%) (Auto) 1 % (0-3) Neutrophils # (Auto) 17.6 x10^3/uL (1.8-7.7) Lymphocytes # (Auto) 2.5 x10^3/uL (1.0-4.8) Monocytes # (Auto) 2.1 x10^3/uL (0.0-1.1) Eosinophils # (Auto) 0.0 x10^3/uL (0.0-0.7) Basophils # (Auto) 0.1 x10^3/uL (0.0-0.2) Segmented Neutrophils % 84 % (35-66) Lymphocytes % 9 % (24-48) Monocytes % 7 % (0-10) Platelet Estimate Adequate (ADEQUATE) Anisocytosis Slight Prothrombin Time 13.9 SEC (11.7-14.0) Prothromb Time International Ratio 1.1 (0.8-1.1) Activated Partial Thromboplast Time 30 SEC (24-38) Sodium Level 142 mmol/L (136-145) Potassium Level 3.6 mmol/L (3.5-5.1) Chloride Level 106 mmol/L (98-107) Carbon Dioxide Level 25 mmol/L (21-32) Anion Gap 11 (6-14) Blood Urea Nitrogen 4 mg/dL (7-20) Creatinine 0.8 mg/dL (0.6-1.0) Estimated GFR (Cockcroft-Gault) 81.2 Glucose Level 113 mg/dL (70-99) Calcium Level 6.9 mg/dL (8.5-10.1) Phosphorus Level 5.7 mg/dL (2.6-4.7) Magnesium Level 3.3 mg/dL (1.8-2.4) Test 12/07/20 22:53 12/08/20 04:13 12/08/20 05:20 12/08/20 07:22 White Blood Count 15.6 x10^3/uL (4.0-11.0) 12.5 x10^3/uL (4.0-11.0) Red Blood Count 3.65 x10^6/uL (3.50-5.40) 3.74 x10^6/uL (3.50-5.40) Hemoglobin 12.0 g/dL (12.0-15.5) 12.2 g/dL (12.0-15.5) Hematocrit 35.3 % (36.0-47.0) 36.6 % (36.0-47.0) Mean Corpuscular Volume 97 fL (79-100) 98 fL (79-100) Mean Corpuscular Hemoglobin 33 pg (25-35) 33 pg (25-35) Mean Corpuscular Hemoglobin Concent 34 g/dL (31-37) 33 g/dL (31-37) Red Cell Distribution Width 18.8 % (11.5-14.5) 18.9 % (11.5-14.5) Platelet Count 226 x10^3/uL (140-400) 208 x10^3/uL (140-400) Neutrophils (%) (Auto) 70 % (31-73) 67 % (31-73) Lymphocytes (%) (Auto) 21 % (24-48) 20 % (24-48) Monocytes (%) (Auto) 9 % (0-9) 12 % (0-9) Eosinophils (%) (Auto) 0 % (0-3) 0 % (0-3) Basophils (%) (Auto) 0 % (0-3) 0 % (0-3) Neutrophils # (Auto) 10.8 x10^3/uL (1.8-7.7) 8.4 x10^3/uL (1.8-7.7) Lymphocytes # (Auto) 3.2 x10^3/uL (1.0-4.8) 2.5 x10^3/uL (1.0-4.8) Monocytes # (Auto) 1.4 x10^3/uL (0.0-1.1) 1.5 x10^3/uL (0.0-1.1) Eosinophils # (Auto) 0.0 x10^3/uL (0.0-0.7) 0.1 x10^3/uL (0.0-0.7) Basophils # (Auto) 0.1 x10^3/uL (0.0-0.2) 0.0 x10^3/uL (0.0-0.2) Prothrombin Time 14.3 SEC (11.7-14.0) 13.3 SEC (11.7-14.0) Prothromb Time International Ratio 1.2 (0.8-1.1) 1.1 (0.8-1.1) Activated Partial Thromboplast Time 43 SEC (24-38) 42 SEC (24-38) Sodium Level 144 mmol/L (136-145) 144 mmol/L (136-145) Potassium Level 2.7 mmol/L (3.5-5.1) 3.1 mmol/L (3.5-5.1) Chloride Level 108 mmol/L (98-107) 110 mmol/L (98-107) Carbon Dioxide Level 26 mmol/L (21-32) 24 mmol/L (21-32) Anion Gap 10 (6-14) 10 (6-14) Blood Urea Nitrogen 4 mg/dL (7-20) 5 mg/dL (7-20) Creatinine 0.7 mg/dL (0.6-1.0) 1.0 mg/dL (0.6-1.0) Estimated GFR (Cockcroft-Gault) 94.7 62.7 Glucose Level 99 mg/dL (70-99) 92 mg/dL (70-99) Calcium Level 6.9 mg/dL (8.5-10.1) 6.7 mg/dL (8.5-10.1) Phosphorus Level 3.5 mg/dL (2.6-4.7) 3.5 mg/dL (2.6-4.7) Magnesium Level 3.0 mg/dL (1.8-2.4) 2.7 mg/dL (1.8-2.4) Glucose (Fingerstick) 83 mg/dL (70-99) 88 mg/dL (70-99) Cortisol AM Sample 8.6 ug/dL (4.3-22.4) Test 12/08/20 07:50 12/08/20 08:30 12/08/20 08:35 12/08/20 09:00 O2 Saturation 99 % (92-99) Arterial Blood pH 7.36 (7.35-7.45) Arterial Blood pH (Temp corrected) 7.40 Arterial Blood pCO2 at Patient Temp 40 mmHg (35-46) Arterial Blood pCO2 (Temp correct) 35 mmHg Arterial Blood pO2 at Patient Temp 148 mmHg (85-108) Arterial Blood pO2 (Temp corrected) 130 mmHg Arterial Blood HCO3 22 mmol/L (21-28) Arterial Blood Base Excess -3 mmol/L (-3-3) FiO2 35/vent Potassium Level 2.8 mmol/L (3.5-5.1) Glucose (Fingerstick) 79 mg/dL (70-99) SARS-CoV-2 Antigen (Rapid) Negative (NEGATIVE) Test 12/08/20 09:48 12/08/20 10:52 12/08/20 11:41 12/08/20 12:53 Glucose (Fingerstick) 51 mg/dL (70-99) 183 mg/dL (70-99) 123 mg/dL (70-99) 86 mg/dL (70-99) Laboratory Tests Test 12/07/20 15:08 12/07/20 16:16 12/07/20 17:00 12/07/20 21:09 Glucose (Fingerstick) 124 mg/dL (70-99) 131 mg/dL (70-99) 112 mg/dL (70-99) White Blood Count 22.4 x10^3/uL (4.0-11.0) Red Blood Count 4.02 x10^6/uL (3.50-5.40) Hemoglobin 13.2 g/dL (12.0-15.5) Hematocrit 38.9 % (36.0-47.0) Mean Corpuscular Volume 97 fL (79-100) Mean Corpuscular Hemoglobin 33 pg (25-35) Mean Corpuscular Hemoglobin Concent 34 g/dL (31-37) Red Cell Distribution Width 18.9 % (11.5-14.5) Platelet Count 260 x10^3/uL (140-400) Neutrophils (%) (Auto) 79 % (31-73) Lymphocytes (%) (Auto) 11 % (24-48) Monocytes (%) (Auto) 9 % (0-9) Eosinophils (%) (Auto) 0 % (0-3) Basophils (%) (Auto) 1 % (0-3) Neutrophils # (Auto) 17.6 x10^3/uL (1.8-7.7) Lymphocytes # (Auto) 2.5 x10^3/uL (1.0-4.8) Monocytes # (Auto) 2.1 x10^3/uL (0.0-1.1) Eosinophils # (Auto) 0.0 x10^3/uL (0.0-0.7) Basophils # (Auto) 0.1 x10^3/uL (0.0-0.2) Segmented Neutrophils % 84 % (35-66) Lymphocytes % 9 % (24-48) Monocytes % 7 % (0-10) Platelet Estimate Adequate (ADEQUATE) Anisocytosis Slight Prothrombin Time 13.9 SEC (11.7-14.0) Prothromb Time International Ratio 1.1 (0.8-1.1) Activated Partial Thromboplast Time 30 SEC (24-38) Sodium Level 142 mmol/L (136-145) Potassium Level 3.6 mmol/L (3.5-5.1) Chloride Level 106 mmol/L (98-107) Carbon Dioxide Level 25 mmol/L (21-32) Anion Gap 11 (6-14) Blood Urea Nitrogen 4 mg/dL (7-20) Creatinine 0.8 mg/dL (0.6-1.0) Estimated GFR (Cockcroft-Gault) 81.2 Glucose Level 113 mg/dL (70-99) Calcium Level 6.9 mg/dL (8.5-10.1) Phosphorus Level 5.7 mg/dL (2.6-4.7) Magnesium Level 3.3 mg/dL (1.8-2.4) Test 12/07/20 22:53 12/08/20 04:13 12/08/20 05:20 12/08/20 07:22 White Blood Count 15.6 x10^3/uL (4.0-11.0) 12.5 x10^3/uL (4.0-11.0) Red Blood Count 3.65 x10^6/uL (3.50-5.40) 3.74 x10^6/uL (3.50-5.40) Hemoglobin 12.0 g/dL (12.0-15.5) 12.2 g/dL (12.0-15.5) Hematocrit 35.3 % (36.0-47.0) 36.6 % (36.0-47.0) Mean Corpuscular Volume 97 fL (79-100) 98 fL (79-100) Mean Corpuscular Hemoglobin 33 pg (25-35) 33 pg (25-35) Mean Corpuscular Hemoglobin Concent 34 g/dL (31-37) 33 g/dL (31-37) Red Cell Distribution Width 18.8 % (11.5-14.5) 18.9 % (11.5-14.5) Platelet Count 226 x10^3/uL (140-400) 208 x10^3/uL (140-400) Neutrophils (%) (Auto) 70 % (31-73) 67 % (31-73) Lymphocytes (%) (Auto) 21 % (24-48) 20 % (24-48) Monocytes (%) (Auto) 9 % (0-9) 12 % (0-9) Eosinophils (%) (Auto) 0 % (0-3) 0 % (0-3) Basophils (%) (Auto) 0 % (0-3) 0 % (0-3) Neutrophils # (Auto) 10.8 x10^3/uL (1.8-7.7) 8.4 x10^3/uL (1.8-7.7) Lymphocytes # (Auto) 3.2 x10^3/uL (1.0-4.8) 2.5 x10^3/uL (1.0-4.8) Monocytes # (Auto) 1.4 x10^3/uL (0.0-1.1) 1.5 x10^3/uL (0.0-1.1) Eosinophils # (Auto) 0.0 x10^3/uL (0.0-0.7) 0.1 x10^3/uL (0.0-0.7) Basophils # (Auto) 0.1 x10^3/uL (0.0-0.2) 0.0 x10^3/uL (0.0-0.2) Prothrombin Time 14.3 SEC (11.7-14.0) 13.3 SEC (11.7-14.0) Prothromb Time International Ratio 1.2 (0.8-1.1) 1.1 (0.8-1.1) Activated Partial Thromboplast Time 43 SEC (24-38) 42 SEC (24-38) Sodium Level 144 mmol/L (136-145) 144 mmol/L (136-145) Potassium Level 2.7 mmol/L (3.5-5.1) 3.1 mmol/L (3.5-5.1) Chloride Level 108 mmol/L (98-107) 110 mmol/L (98-107) Carbon Dioxide Level 26 mmol/L (21-32) 24 mmol/L (21-32) Anion Gap 10 (6-14) 10 (6-14) Blood Urea Nitrogen 4 mg/dL (7-20) 5 mg/dL (7-20) Creatinine 0.7 mg/dL (0.6-1.0) 1.0 mg/dL (0.6-1.0) Estimated GFR (Cockcroft-Gault) 94.7 62.7 Glucose Level 99 mg/dL (70-99) 92 mg/dL (70-99) Calcium Level 6.9 mg/dL (8.5-10.1) 6.7 mg/dL (8.5-10.1) Phosphorus Level 3.5 mg/dL (2.6-4.7) 3.5 mg/dL (2.6-4.7) Magnesium Level 3.0 mg/dL (1.8-2.4) 2.7 mg/dL (1.8-2.4) Glucose (Fingerstick) 83 mg/dL (70-99) 88 mg/dL (70-99) Cortisol AM Sample 8.6 ug/dL (4.3-22.4) Test 12/08/20 07:50 12/08/20 08:30 12/08/20 08:35 12/08/20 09:00 O2 Saturation 99 % (92-99) Arterial Blood pH 7.36 (7.35-7.45) Arterial Blood pH (Temp corrected) 7.40 Arterial Blood pCO2 at Patient Temp 40 mmHg (35-46) Arterial Blood pCO2 (Temp correct) 35 mmHg Arterial Blood pO2 at Patient Temp 148 mmHg (85-108) Arterial Blood pO2 (Temp corrected) 130 mmHg Arterial Blood HCO3 22 mmol/L (21-28) Arterial Blood Base Excess -3 mmol/L (-3-3) FiO2 35/vent Potassium Level 2.8 mmol/L (3.5-5.1) Glucose (Fingerstick) 79 mg/dL (70-99) SARS-CoV-2 Antigen (Rapid) Negative (NEGATIVE) Test 12/08/20 09:48 12/08/20 10:52 12/08/20 11:41 12/08/20 12:53 Glucose (Fingerstick) 51 mg/dL (70-99) 183 mg/dL (70-99) 123 mg/dL (70-99) 86 mg/dL (70-99) Images Images CT HEAD/BRAIN WO History: Reason: r/o bleed for hypothermia / Spl. Instructions: / History: Comparison: None. Technique: Noncontrast CT imaging was performed of the head. Exposure: One or more of the following individualized dose reduction techniques were utilized for this examination: 1. Automated exposure control 2. Adjustment of the mA and/or kV according to patient size 3. Use of iterative reconstruction technique. Findings: No intracranial hemorrhage. No mass effect. No hydrocephalus. Extra-axial spaces are unremarkable. Imaged orbits are unremarkable. Imaged paranasal sinuses and mastoid air cells are clear. No acute calvarial fracture. Impression: 1. No acute intracranial abnormality. Assessment/Plan Assessment/Plan Impression: Anoxic encephalopathy post torsades and ventricular fibrillation, still rewarming from hypothermia Recommendations: I will reexamine tomorrow Thank you for letting me help with the patient's care. HANNAH WEBER MD Dec 08, 2020 13:25
[2020-12-08 13:27] LABS: CALCIUM 6.7 mg/dL (8.5-10.1); CREATININE 1.2 mg/dL (0.6-1.0); GFR 50.8; MAGNESIUM 2.5 mg/dL (1.8-2.4); PHOSPHORUS 2.7 mg/dL (2.6-4.7)
[2020-12-08 13:29] LABS: PROTHROMBIN TIME PATIENT 13.8 SEC (11.7-14.0)
[2020-12-08 13:32] LABS: POTASSIUM 2.2 mmol/L (3.5-5.1)
[2020-12-08] MEDS ORDERED: POTASSIUM CHLORIDE 20MEQ 100 ML IV ONE (13:45)
[2020-12-08] MEDS ORDERED: IV DEXTROSE 5 %-0.45 % NACL 1,000 ML IV SCH (13:45)
[2020-12-08] MEDS ORDERED: NOREPINEPHRINE VIAL 8 MG in IV DEXTROSE 5% 250 ML IV PRN (15:00)
--- NOTE | 2020-12-08 15:38 | NUR ---
SS following up with discharge planning. SS reviewed pt chart and discussed with pt RN. Pt is currently on the vent at 35%. COVID19 negative. Pt on Fentanyl, Versed, Propofol, and Levophed. Pt on hypothermia protocol. Not stable. SS will continue to follow for discharge planning.
[2020-12-08] MEDS: HYDROCORTISONE SOD SUCC/PF 100 MG/2 ML VIAL. IVP SCH ×2 (16:18→21:11)
[2020-12-08 17:41] LABS: BASO # 0.1 x10^3/uL (0.0-0.2); BASO % 1 % (0-3); EOS # 0.1 x10^3/uL (0.0-0.7); EOS % 1 % (0-3); HEMOGLOBIN 10.9 g/dL (12.0-15.5); LYMPH # 2.6 x10^3/uL (1.0-4.8); LYMPH % 19 % (24-48); MEAN CORPUSCULAR HEMOGLOBIN 32 pg (25-35); MEAN CORPUSCULAR HGB CONC 33 g/dL (31-37); MEAN CORPUSCULAR VOLUME 98 fL (79-100); MONO # 1.3 x10^3/uL (0.0-1.1); MONO % 9 % (0-9); NEUT # 9.7 x10^3/uL (1.8-7.7); NEUT % 70 % (31-73); PLATELET COUNT 231 x10^3/uL (140-400); RED BLOOD COUNT 3.37 x10^6/uL (3.50-5.40); RED CELL DISTRIBUTION WIDTH 19.2 % (11.5-14.5); WHITE BLOOD COUNT 13.8 x10^3/uL (4.0-11.0)
[2020-12-08 17:50] LABS: PROTHROMBIN TIME PATIENT 13.6 SEC (11.7-14.0)
[2020-12-08 18:08] LABS: CALCIUM 6.4 mg/dL (8.5-10.1); CREATININE 1.2 mg/dL (0.6-1.0); GFR 50.8; MAGNESIUM 2.1 mg/dL (1.8-2.4)
[2020-12-08 18:15] LABS: POTASSIUM 2.5 mmol/L (3.5-5.1)
[2020-12-08] MEDS: POTASSIUM CHLORIDE 20MEQ 100 ML IV SCH ×2 (18:51→20:03)
[2020-12-08] MEDS: POTASSIUM CL 40MEQ D5-0.45NACL 1,000 ML IV SCH (18:51)
[2020-12-08] MEDS ORDERED: MAGNESIUM SULFATE 1GM 100 ML IV ONE (19:00)
--- NOTE | 2020-12-08 19:06 | NUR ---
Started shift while patient was on hypothermia protocol. AT 0930 pt started om rewarming phase. Pt sedated on Fentanyl, Versed, and Propofol on Vent settings AC 14/450/5/35%. Rewarming completed at 1800. Sedation stopped at 1800. Pt started to open eyes. Pt able to follow some commands. Dr. Bustos want pt re-sedated on Fentanyl and propofol and will trail pt in AM. Amara Caraballo paged d/t low potassium. Orders received from him.
[2020-12-08] MEDS: CEFEPIME HCL IV Push 2 GM VIAL. IVP SCH (21:24)
[2020-12-08] MEDS ORDERED: CALCIUM GLUCONATE 1,000 MG in IV NORMAL SALINE 100ML 100 ML IV ONE (22:30)
[2020-12-08 22:56] LABS: CALCIUM 6.8 mg/dL (8.5-10.1); CREATININE 1.4 mg/dL (0.6-1.0); GFR 42.5; POTASSIUM 3.7 mmol/L (3.5-5.1)
[2020-12-09] VITALS (16 sets, daily range): BP systolic 103–154; BP diastolic 56–94
[2020-12-09] MEDS: PROPOFOL 100 ML IV PRN (04:08)
[2020-12-09] MEDS: POTASSIUM CL 40MEQ D5-0.45NACL 1,000 ML IV SCH (04:09)
--- NOTE | 2020-12-09 04:10 | RAD ---
XR CHEST 1V Clinical History: Reason: hypotension 109 / Spl. Instructions: / History: Technique: AP view of the chest was obtained at 12/09/2020 3:02 AM. Comparison: December 07, 2020. Findings: The heart is normal in size. The pulmonary vessels appear normal. NG tube and enteric tube and right jugular line are again seen unchanged. The lungs and pleural palma ns are clear. Impression: Stable appearance of the chest. Electronically signed by: William Powell III, MD (12/09/2020 4:07 AM) [facility]
[2020-12-09 05:23] LABS: BASO % 0 % (0-3); EOS % 0 % (0-3); HEMOGLOBIN 10.9 g/dL (12.0-15.5); LYMPH # 1.4 x10^3/uL (1.0-4.8); LYMPH % 9 % (24-48); MEAN CORPUSCULAR HEMOGLOBIN 33 pg (25-35); MEAN CORPUSCULAR HGB CONC 33 g/dL (31-37); MEAN CORPUSCULAR VOLUME 98 fL (79-100); MONO # 0.9 x10^3/uL (0.0-1.1); MONO % 5 % (0-9); NEUT # 14.3 x10^3/uL (1.8-7.7); NEUT % 86 % (31-73); PLATELET COUNT 240 x10^3/uL (140-400); RED BLOOD COUNT 3.36 x10^6/uL (3.50-5.40); RED CELL DISTRIBUTION WIDTH 19.1 % (11.5-14.5); WHITE BLOOD COUNT 16.7 x10^3/uL (4.0-11.0)
[2020-12-09 05:42] LABS: CALCIUM 7.2 mg/dL (8.5-10.1); CREATININE 1.5 mg/dL (0.6-1.0); GFR 39.3; MAGNESIUM 2.6 mg/dL (1.8-2.4); POTASSIUM 4.3 mmol/L (3.5-5.1)
[2020-12-09] MEDS: HYDROCORTISONE SOD SUCC/PF 100 MG/2 ML VIAL. IVP SCH ×2 (08:29→22:06)
[2020-12-09] MEDS: PANTOPRAZOLE IV PUSH 40 MG VIAL. IVP SCH (08:29)
[2020-12-09] MEDS: CEFEPIME HCL IV Push 2 GM VIAL. IVP SCH ×2 (08:29→22:06)
[2020-12-09] MEDS: HEPARIN for SUB-Q USE 5,000 UNIT/ML VIAL. SQ SCH ×2 (08:30→22:06)
[2020-12-09 08:41] LABS: BASE EXCESS ABG -5 mmol/L (-3-3); HCO3 ABG 20 mmol/L (21-28); PCO2 ABG 36 mmHg (35-46); PO2 ABG 146 mmHg (85-108); SAT O2 ABG 99 % (92-99)
[2020-12-09] MEDS ORDERED: IV NORMAL SALINE 500ML BAG 500 ML IV PRN (08:45)
[2020-12-09] MEDS ORDERED: ATROPINE 0.5 MG/5 ML DISP.SYRINGE. IV PRN (08:45)
[2020-12-09] MEDS ORDERED: DEXMEDETOMIDINE 400 MCG in IV NORMAL SALINE 100ML 96 ML IV PRN (08:45)
[2020-12-09 08:49] LABS: FIO2 ABG 35% VENT
--- NOTE | 2020-12-09 09:29 | PDOC ---
PULMONARY PROGRESS NOTES DATE: 12/09/20 TIME: 09:27 Subjective awake, following commands on CPAP trial wants ET out Vitals Vital Signs Date Time Temp Pulse Resp B/P (MAP) Pulse Ox O2 Delivery O2 Flow Rate FiO2 12/09/20 08:26 100 Ventilator 12/09/20 07:00 98.4 61 14 113/72 (86) 98.4 12/09/20 04:47 35.0 General: Alert, No acute distress Lungs: Clear Cardiovascular: S1, S2 Abdomen: Soft Extremities: Other (No significant edema) Skin: Warm Labs Laboratory Tests Test 12/07/20 09:32 12/07/20 09:38 12/07/20 10:40 12/07/20 13:15 Glucose (Fingerstick) 165 mg/dL (70-99) 122 mg/dL (70-99) O2 Saturation 99 % (92-99) Arterial Blood pH 7.46 (7.35-7.45) Arterial Blood pCO2 at Patient Temp 29 mmHg (35-46) Arterial Blood pO2 at Patient Temp 184 mmHg (85-108) Arterial Blood HCO3 20 mmol/L (21-28) Arterial Blood Base Excess -2 mmol/L (-3-3) FiO2 40 White Blood Count 26.6 x10^3/uL (4.0-11.0) Red Blood Count 4.06 x10^6/uL (3.50-5.40) Hemoglobin 13.1 g/dL (12.0-15.5) Hematocrit 39.5 % (36.0-47.0) Mean Corpuscular Volume 97 fL (79-100) Mean Corpuscular Hemoglobin 32 pg (25-35) Mean Corpuscular Hemoglobin Concent 33 g/dL (31-37) Red Cell Distribution Width 19.2 % (11.5-14.5) Platelet Count 264 x10^3/uL (140-400) Neutrophils (%) (Auto) 85 % (31-73) Lymphocytes (%) (Auto) 6 % (24-48) Monocytes (%) (Auto) 9 % (0-9) Eosinophils (%) (Auto) 0 % (0-3) Basophils (%) (Auto) 0 % (0-3) Neutrophils # (Auto) 22.6 x10^3/uL (1.8-7.7) Lymphocytes # (Auto) 1.6 x10^3/uL (1.0-4.8) Monocytes # (Auto) 2.3 x10^3/uL (0.0-1.1) Eosinophils # (Auto) 0.0 x10^3/uL (0.0-0.7) Basophils # (Auto) 0.0 x10^3/uL (0.0-0.2) Segmented Neutrophils % 87 % (35-66) Band Neutrophils % 4 % (0-9) Lymphocytes % 7 % (24-48) Monocytes % 2 % (0-10) Platelet Estimate Adequate (ADEQUATE) Anisocytosis Present Prothrombin Time 14.3 SEC (11.7-14.0) Prothromb Time International Ratio 1.2 (0.8-1.1) Activated Partial Thromboplast Time 25 SEC (24-38) Sodium Level 139 mmol/L (136-145) Potassium Level 3.0 mmol/L (3.5-5.1) Chloride Level 103 mmol/L (98-107) Carbon Dioxide Level 27 mmol/L (21-32) Anion Gap 9 (6-14) Blood Urea Nitrogen 4 mg/dL (7-20) Creatinine 0.7 mg/dL (0.6-1.0) Estimated GFR (Cockcroft-Gault) 94.7 Glucose Level 145 mg/dL (70-99) Calcium Level 7.5 mg/dL (8.5-10.1) Phosphorus Level 2.2 mg/dL (2.6-4.7) Magnesium Level 3.9 mg/dL (1.8-2.4) Test 12/07/20 15:08 12/07/20 16:16 12/07/20 17:00 12/07/20 21:09 Glucose (Fingerstick) 124 mg/dL (70-99) 131 mg/dL (70-99) 112 mg/dL (70-99) White Blood Count 22.4 x10^3/uL (4.0-11.0) Red Blood Count 4.02 x10^6/uL (3.50-5.40) Hemoglobin 13.2 g/dL (12.0-15.5) Hematocrit 38.9 % (36.0-47.0) Mean Corpuscular Volume 97 fL (79-100) Mean Corpuscular Hemoglobin 33 pg (25-35) Mean Corpuscular Hemoglobin Concent 34 g/dL (31-37) Red Cell Distribution Width 18.9 % (11.5-14.5) Platelet Count 260 x10^3/uL (140-400) Neutrophils (%) (Auto) 79 % (31-73) Lymphocytes (%) (Auto) 11 % (24-48) Monocytes (%) (Auto) 9 % (0-9) Eosinophils (%) (Auto) 0 % (0-3) Basophils (%) (Auto) 1 % (0-3) Neutrophils # (Auto) 17.6 x10^3/uL (1.8-7.7) Lymphocytes # (Auto) 2.5 x10^3/uL (1.0-4.8) Monocytes # (Auto) 2.1 x10^3/uL (0.0-1.1) Eosinophils # (Auto) 0.0 x10^3/uL (0.0-0.7) Basophils # (Auto) 0.1 x10^3/uL (0.0-0.2) Segmented Neutrophils % 84 % (35-66) Lymphocytes % 9 % (24-48) Monocytes % 7 % (0-10) Platelet Estimate Adequate (ADEQUATE) Anisocytosis Slight Prothrombin Time 13.9 SEC (11.7-14.0) Prothromb Time International Ratio 1.1 (0.8-1.1) Activated Partial Thromboplast Time 30 SEC (24-38) Sodium Level 142 mmol/L (136-145) Potassium Level 3.6 mmol/L (3.5-5.1) Chloride Level 106 mmol/L (98-107) Carbon Dioxide Level 25 mmol/L (21-32) Anion Gap 11 (6-14) Blood Urea Nitrogen 4 mg/dL (7-20) Creatinine 0.8 mg/dL (0.6-1.0) Estimated GFR (Cockcroft-Gault) 81.2 Glucose Level 113 mg/dL (70-99) Calcium Level 6.9 mg/dL (8.5-10.1) Phosphorus Level 5.7 mg/dL (2.6-4.7) Magnesium Level 3.3 mg/dL (1.8-2.4) Test 12/07/20 22:53 12/08/20 04:13 12/08/20 05:20 12/08/20 07:22 White Blood Count 15.6 x10^3/uL (4.0-11.0) 12.5 x10^3/uL (4.0-11.0) Red Blood Count 3.65 x10^6/uL (3.50-5.40) 3.74 x10^6/uL (3.50-5.40) Hemoglobin 12.0 g/dL (12.0-15.5) 12.2 g/dL (12.0-15.5) Hematocrit 35.3 % (36.0-47.0) 36.6 % (36.0-47.0) Mean Corpuscular Volume 97 fL (79-100) 98 fL (79-100) Mean Corpuscular Hemoglobin 33 pg (25-35) 33 pg (25-35) Mean Corpuscular Hemoglobin Concent 34 g/dL (31-37) 33 g/dL (31-37) Red Cell Distribution Width 18.8 % (11.5-14.5) 18.9 % (11.5-14.5) Platelet Count 226 x10^3/uL (140-400) 208 x10^3/uL (140-400) Neutrophils (%) (Auto) 70 % (31-73) 67 % (31-73) Lymphocytes (%) (Auto) 21 % (24-48) 20 % (24-48) Monocytes (%) (Auto) 9 % (0-9) 12 % (0-9) Eosinophils (%) (Auto) 0 % (0-3) 0 % (0-3) Basophils (%) (Auto) 0 % (0-3) 0 % (0-3) Neutrophils # (Auto) 10.8 x10^3/uL (1.8-7.7) 8.4 x10^3/uL (1.8-7.7) Lymphocytes # (Auto) 3.2 x10^3/uL (1.0-4.8) 2.5 x10^3/uL (1.0-4.8) Monocytes # (Auto) 1.4 x10^3/uL (0.0-1.1) 1.5 x10^3/uL (0.0-1.1) Eosinophils # (Auto) 0.0 x10^3/uL (0.0-0.7) 0.1 x10^3/uL (0.0-0.7) Basophils # (Auto) 0.1 x10^3/uL (0.0-0.2) 0.0 x10^3/uL (0.0-0.2) Prothrombin Time 14.3 SEC (11.7-14.0) 13.3 SEC (11.7-14.0) Prothromb Time International Ratio 1.2 (0.8-1.1) 1.1 (0.8-1.1) Activated Partial Thromboplast Time 43 SEC (24-38) 42 SEC (24-38) Sodium Level 144 mmol/L (136-145) 144 mmol/L (136-145) Potassium Level 2.7 mmol/L (3.5-5.1) 3.1 mmol/L (3.5-5.1) Chloride Level 108 mmol/L (98-107) 110 mmol/L (98-107) Carbon Dioxide Level 26 mmol/L (21-32) 24 mmol/L (21-32) Anion Gap 10 (6-14) 10 (6-14) Blood Urea Nitrogen 4 mg/dL (7-20) 5 mg/dL (7-20) Creatinine 0.7 mg/dL (0.6-1.0) 1.0 mg/dL (0.6-1.0) Estimated GFR (Cockcroft-Gault) 94.7 62.7 Glucose Level 99 mg/dL (70-99) 92 mg/dL (70-99) Calcium Level 6.9 mg/dL (8.5-10.1) 6.7 mg/dL (8.5-10.1) Phosphorus Level 3.5 mg/dL (2.6-4.7) 3.5 mg/dL (2.6-4.7) Magnesium Level 3.0 mg/dL (1.8-2.4) 2.7 mg/dL (1.8-2.4) Glucose (Fingerstick) 83 mg/dL (70-99) 88 mg/dL (70-99) Cortisol AM Sample 8.6 ug/dL (4.3-22.4) Test 4/15/21 07:50 12/08/20 08:30 12/08/20 08:35 12/08/20 09:00 O2 Saturation 99 % (92-99) Arterial Blood pH 7.36 (7.35-7.45) Arterial Blood pH (Temp corrected) 7.40 Arterial Blood pCO2 at Patient Temp 40 mmHg (35-46) Arterial Blood pCO2 (Temp correct) 35 mmHg Arterial Blood pO2 at Patient Temp 148 mmHg (85-108) Arterial Blood pO2 (Temp corrected) 130 mmHg Arterial Blood HCO3 22 mmol/L (21-28) Arterial Blood Base Excess -3 mmol/L (-3-3) FiO2 35/vent Potassium Level 2.8 mmol/L (3.5-5.1) SARS-CoV-2 RNA (RICK) Negative (Negative) Glucose (Fingerstick) 79 mg/dL (70-99) SARS-CoV-2 Antigen (Rapid) Negative (NEGATIVE) Test 12/08/20 09:48 12/08/20 10:52 12/08/20 11:41 12/08/20 12:00 Glucose (Fingerstick) 51 mg/dL (70-99) 183 mg/dL (70-99) 123 mg/dL (70-99) Procalcitonin 0.13 ng/mL (0.00-0.10) Free Thyroxine 1.00 ng/dL (0.76-1.46) HIV (1&2) Antibody Screen Nonreactive (Nonreactive) Test 12/08/20 12:30 12/08/20 12:53 12/08/20 13:27 12/08/20 13:48 White Blood Count 10.5 x10^3/uL (4.0-11.0) Red Blood Count 3.31 x10^6/uL (3.50-5.40) Hemoglobin 10.7 g/dL (12.0-15.5) Hematocrit 32.1 % (36.0-47.0) Mean Corpuscular Volume 97 fL (79-100) Mean Corpuscular Hemoglobin 33 pg (25-35) Mean Corpuscular Hemoglobin Concent 34 g/dL (31-37) Red Cell Distribution Width 18.5 % (11.5-14.5) Platelet Count 196 x10^3/uL (140-400) Neutrophils (%) (Auto) 65 % (31-73) Lymphocytes (%) (Auto) 22 % (24-48) Monocytes (%) (Auto) 11 % (0-9) Eosinophils (%) (Auto) 1 % (0-3) Basophils (%) (Auto) 0 % (0-3) Neutrophils # (Auto) 6.8 x10^3/uL (1.8-7.7) Lymphocytes # (Auto) 2.3 x10^3/uL (1.0-4.8) Monocytes # (Auto) 1.2 x10^3/uL (0.0-1.1) Eosinophils # (Auto) 0.1 x10^3/uL (0.0-0.7) Basophils # (Auto) 0.0 x10^3/uL (0.0-0.2) Prothrombin Time 13.8 SEC (11.7-14.0) Prothromb Time International Ratio 1.1 (0.8-1.1) Sodium Level 148 mmol/L (136-145) Potassium Level 2.2 mmol/L (3.5-5.1) Chloride Level 112 mmol/L (98-107) Carbon Dioxide Level 24 mmol/L (21-32) Anion Gap 12 (6-14) Blood Urea Nitrogen 5 mg/dL (7-20) Creatinine 1.2 mg/dL (0.6-1.0) Estimated GFR (Cockcroft-Gault) 50.8 Glucose Level 80 mg/dL (70-99) Calcium Level 6.7 mg/dL (8.5-10.1) Ionized Calcium 0.99 mmol/L (1.13-1.32) Phosphorus Level 2.7 mg/dL (2.6-4.7) Magnesium Level 2.5 mg/dL (1.8-2.4) Glucose (Fingerstick) 86 mg/dL (70-99) 88 mg/dL (70-99) Cortisol PM Sample 2.0 ug/dL (3.1-16.7) Test 12/08/20 15:29 12/08/20 17:04 12/08/20 17:29 12/08/20 22:30 Glucose (Fingerstick) 80 mg/dL (70-99) 117 mg/dL (70-99) White Blood Count 13.8 x10^3/uL (4.0-11.0) Red Blood Count 3.37 x10^6/uL (3.50-5.40) Hemoglobin 10.9 g/dL (12.0-15.5) Hematocrit 33.0 % (36.0-47.0) Mean Corpuscular Volume 98 fL (79-100) Mean Corpuscular Hemoglobin 32 pg (25-35) Mean Corpuscular Hemoglobin Concent 33 g/dL (31-37) Red Cell Distribution Width 19.2 % (11.5-14.5) Platelet Count 231 x10^3/uL (140-400) Neutrophils (%) (Auto) 70 % (31-73) Lymphocytes (%) (Auto) 19 % (24-48) Monocytes (%) (Auto) 9 % (0-9) Eosinophils (%) (Auto) 1 % (0-3) Basophils (%) (Auto) 1 % (0-3) Neutrophils # (Auto) 9.7 x10^3/uL (1.8-7.7) Lymphocytes # (Auto) 2.6 x10^3/uL (1.0-4.8) Monocytes # (Auto) 1.3 x10^3/uL (0.0-1.1) Eosinophils # (Auto) 0.1 x10^3/uL (0.0-0.7) Basophils # (Auto) 0.1 x10^3/uL (0.0-0.2) Prothrombin Time 13.6 SEC (11.7-14.0) Prothromb Time International Ratio 1.1 (0.8-1.1) Sodium Level 145 mmol/L (136-145) 141 mmol/L (136-145) Potassium Level 2.5 mmol/L (3.5-5.1) 3.7 mmol/L (3.5-5.1) Chloride Level 110 mmol/L (98-107) 110 mmol/L (98-107) Carbon Dioxide Level 21 mmol/L (21-32) 21 mmol/L (21-32) Anion Gap 14 (6-14) 10 (6-14) Blood Urea Nitrogen 5 mg/dL (7-20) 5 mg/dL (7-20) Creatinine 1.2 mg/dL (0.6-1.0) 1.4 mg/dL (0.6-1.0) Estimated GFR (Cockcroft-Gault) 50.8 42.5 Glucose Level 122 mg/dL (70-99) 186 mg/dL (70-99) Calcium Level 6.4 mg/dL (8.5-10.1) 6.8 mg/dL (8.5-10.1) Ionized Calcium 0.90 mmol/L (1.13-1.32) Phosphorus Level 4.0 mg/dL (2.6-4.7) Magnesium Level 2.1 mg/dL (1.8-2.4) Test 12/09/20 05:15 12/09/20 08:00 12/09/20 08:39 White Blood Count 16.7 x10^3/uL (4.0-11.0) Red Blood Count 3.36 x10^6/uL (3.50-5.40) Hemoglobin 10.9 g/dL (12.0-15.5) Hematocrit 33.0 % (36.0-47.0) Mean Corpuscular Volume 98 fL (79-100) Mean Corpuscular Hemoglobin 33 pg (25-35) Mean Corpuscular Hemoglobin Concent 33 g/dL (31-37) Red Cell Distribution Width 19.1 % (11.5-14.5) Platelet Count 240 x10^3/uL (140-400) Neutrophils (%) (Auto) 86 % (31-73) Lymphocytes (%) (Auto) 9 % (24-48) Monocytes (%) (Auto) 5 % (0-9) Eosinophils (%) (Auto) 0 % (0-3) Basophils (%) (Auto) 0 % (0-3) Neutrophils # (Auto) 14.3 x10^3/uL (1.8-7.7) Lymphocytes # (Auto) 1.4 x10^3/uL (1.0-4.8) Monocytes # (Auto) 0.9 x10^3/uL (0.0-1.1) Eosinophils # (Auto) 0.0 x10^3/uL (0.0-0.7) Basophils # (Auto) 0.0 x10^3/uL (0.0-0.2) Sodium Level 143 mmol/L (136-145) Potassium Level 4.3 mmol/L (3.5-5.1) Chloride Level 110 mmol/L (98-107) Carbon Dioxide Level 20 mmol/L (21-32) Anion Gap 13 (6-14) Blood Urea Nitrogen 4 mg/dL (7-20) Creatinine 1.5 mg/dL (0.6-1.0) Estimated GFR (Cockcroft-Gault) 39.3 Glucose Level 149 mg/dL (70-99) Calcium Level 7.2 mg/dL (8.5-10.1) Magnesium Level 2.6 mg/dL (1.8-2.4) Thyroid Stimulating Hormone (TSH) 0.592 uIU/mL (0.358-3.74) O2 Saturation 99 % (92-99) Arterial Blood pH 7.35 (7.35-7.45) Arterial Blood pCO2 at Patient Temp 36 mmHg (35-46) Arterial Blood pO2 at Patient Temp 146 mmHg (85-108) Arterial Blood HCO3 20 mmol/L (21-28) Arterial Blood Base Excess -5 mmol/L (-3-3) FiO2 35% vent Glucose (Fingerstick) 112 mg/dL (70-99) Laboratory Tests Test 12/08/20 09:48 12/08/20 10:52 12/08/20 11:41 12/08/20 12:00 Glucose (Fingerstick) 51 mg/dL (70-99) 183 mg/dL (70-99) 123 mg/dL (70-99) Procalcitonin 0.13 ng/mL (0.00-0.10) Free Thyroxine 1.00 ng/dL (0.76-1.46) HIV (1&2) Antibody Screen Nonreactive (Nonreactive) Test 12/08/20 12:30 12/08/20 12:53 12/08/20 13:27 12/08/20 13:48 White Blood Count 10.5 x10^3/uL (4.0-11.0) Red Blood Count 3.31 x10^6/uL (3.50-5.40) Hemoglobin 10.7 g/dL (12.0-15.5) Hematocrit 32.1 % (36.0-47.0) Mean Corpuscular Volume 97 fL (79-100) Mean Corpuscular Hemoglobin 33 pg (25-35) Mean Corpuscular Hemoglobin Concent 34 g/dL (31-37) Red Cell Distribution Width 18.5 % (11.5-14.5) Platelet Count 196 x10^3/uL (140-400) Neutrophils (%) (Auto) 65 % (31-73) Lymphocytes (%) (Auto) 22 % (24-48) Monocytes (%) (Auto) 11 % (0-9) Eosinophils (%) (Auto) 1 % (0-3) Basophils (%) (Auto) 0 % (0-3) Neutrophils # (Auto) 6.8 x10^3/uL (1.8-7.7) Lymphocytes # (Auto) 2.3 x10^3/uL (1.0-4.8) Monocytes # (Auto) 1.2 x10^3/uL (0.0-1.1) Eosinophils # (Auto) 0.1 x10^3/uL (0.0-0.7) Basophils # (Auto) 0.0 x10^3/uL (0.0-0.2) Prothrombin Time 13.8 SEC (11.7-14.0) Prothromb Time International Ratio 1.1 (0.8-1.1) Sodium Level 148 mmol/L (136-145) Potassium Level 2.2 mmol/L (3.5-5.1) Chloride Level 112 mmol/L (98-107) Carbon Dioxide Level 24 mmol/L (21-32) Anion Gap 12 (6-14) Blood Urea Nitrogen 5 mg/dL (7-20) Creatinine 1.2 mg/dL (0.6-1.0) Estimated GFR (Cockcroft-Gault) 50.8 Glucose Level 80 mg/dL (70-99) Calcium Level 6.7 mg/dL (8.5-10.1) Ionized Calcium 0.99 mmol/L (1.13-1.32) Phosphorus Level 2.7 mg/dL (2.6-4.7) Magnesium Level 2.5 mg/dL (1.8-2.4) Glucose (Fingerstick) 86 mg/dL (70-99) 88 mg/dL (70-99) Cortisol PM Sample 2.0 ug/dL (3.1-16.7) Test 4/15/21 15:29 12/08/20 17:04 12/08/20 17:29 12/08/20 22:30 Glucose (Fingerstick) 80 mg/dL (70-99) 117 mg/dL (70-99) White Blood Count 13.8 x10^3/uL (4.0-11.0) Red Blood Count 3.37 x10^6/uL (3.50-5.40) Hemoglobin 10.9 g/dL (12.0-15.5) Hematocrit 33.0 % (36.0-47.0) Mean Corpuscular Volume 98 fL (79-100) Mean Corpuscular Hemoglobin 32 pg (25-35) Mean Corpuscular Hemoglobin Concent 33 g/dL (31-37) Red Cell Distribution Width 19.2 % (11.5-14.5) Platelet Count 231 x10^3/uL (140-400) Neutrophils (%) (Auto) 70 % (31-73) Lymphocytes (%) (Auto) 19 % (24-48) Monocytes (%) (Auto) 9 % (0-9) Eosinophils (%) (Auto) 1 % (0-3) Basophils (%) (Auto) 1 % (0-3) Neutrophils # (Auto) 9.7 x10^3/uL (1.8-7.7) Lymphocytes # (Auto) 2.6 x10^3/uL (1.0-4.8) Monocytes # (Auto) 1.3 x10^3/uL (0.0-1.1) Eosinophils # (Auto) 0.1 x10^3/uL (0.0-0.7) Basophils # (Auto) 0.1 x10^3/uL (0.0-0.2) Prothrombin Time 13.6 SEC (11.7-14.0) Prothromb Time International Ratio 1.1 (0.8-1.1) Sodium Level 145 mmol/L (136-145) 141 mmol/L (136-145) Potassium Level 2.5 mmol/L (3.5-5.1) 3.7 mmol/L (3.5-5.1) Chloride Level 110 mmol/L (98-107) 110 mmol/L (98-107) Carbon Dioxide Level 21 mmol/L (21-32) 21 mmol/L (21-32) Anion Gap 14 (6-14) 10 (6-14) Blood Urea Nitrogen 5 mg/dL (7-20) 5 mg/dL (7-20) Creatinine 1.2 mg/dL (0.6-1.0) 1.4 mg/dL (0.6-1.0) Estimated GFR (Cockcroft-Gault) 50.8 42.5 Glucose Level 122 mg/dL (70-99) 186 mg/dL (70-99) Calcium Level 6.4 mg/dL (8.5-10.1) 6.8 mg/dL (8.5-10.1) Ionized Calcium 0.90 mmol/L (1.13-1.32) Phosphorus Level 4.0 mg/dL (2.6-4.7) Magnesium Level 2.1 mg/dL (1.8-2.4) Test 12/09/20 05:15 12/09/20 08:00 12/09/20 08:39 White Blood Count 16.7 x10^3/uL (4.0-11.0) Red Blood Count 3.36 x10^6/uL (3.50-5.40) Hemoglobin 10.9 g/dL (12.0-15.5) Hematocrit 33.0 % (36.0-47.0) Mean Corpuscular Volume 98 fL (79-100) Mean Corpuscular Hemoglobin 33 pg (25-35) Mean Corpuscular Hemoglobin Concent 33 g/dL (31-37) Red Cell Distribution Width 19.1 % (11.5-14.5) Platelet Count 240 x10^3/uL (140-400) Neutrophils (%) (Auto) 86 % (31-73) Lymphocytes (%) (Auto) 9 % (24-48) Monocytes (%) (Auto) 5 % (0-9) Eosinophils (%) (Auto) 0 % (0-3) Basophils (%) (Auto) 0 % (0-3) Neutrophils # (Auto) 14.3 x10^3/uL (1.8-7.7) Lymphocytes # (Auto) 1.4 x10^3/uL (1.0-4.8) Monocytes # (Auto) 0.9 x10^3/uL (0.0-1.1) Eosinophils # (Auto) 0.0 x10^3/uL (0.0-0.7) Basophils # (Auto) 0.0 x10^3/uL (0.0-0.2) Sodium Level 143 mmol/L (136-145) Potassium Level 4.3 mmol/L (3.5-5.1) Chloride Level 110 mmol/L (98-107) Carbon Dioxide Level 20 mmol/L (21-32) Anion Gap 13 (6-14) Blood Urea Nitrogen 4 mg/dL (7-20) Creatinine 1.5 mg/dL (0.6-1.0) Estimated GFR (Cockcroft-Gault) 39.3 Glucose Level 149 mg/dL (70-99) Calcium Level 7.2 mg/dL (8.5-10.1) Magnesium Level 2.6 mg/dL (1.8-2.4) Thyroid Stimulating Hormone (TSH) 0.592 uIU/mL (0.358-3.74) O2 Saturation 99 % (92-99) Arterial Blood pH 7.35 (7.35-7.45) Arterial Blood pCO2 at Patient Temp 36 mmHg (35-46) Arterial Blood pO2 at Patient Temp 146 mmHg (85-108) Arterial Blood HCO3 20 mmol/L (21-28) Arterial Blood Base Excess -5 mmol/L (-3-3) FiO2 35% vent Glucose (Fingerstick) 112 mg/dL (70-99) Medications Active Scripts Medications Dose Route/Sig Max Daily Dose Days Date Category Vancomycin Hcl 125 Mg Capsule 1 Cap PO QID 10 06/12/20 Rx Fenofibrate (Fenofibrate,Micronized) 134 Mg Capsule 134 Mg PO DAILY 05/25/20 Reported Potassium Chloride (Potassium Chloride) 20 Meq Tablet.er 20 Meq PO BIDAC 30 05/07/20 Rx Reglan (Metoclopramide Hcl) 10 Mg Tablet 10 Mg PO TID PRN 03/28/20 Rx Compazine (Prochlorperazine Maleate) 10 Mg Tablet 1 Tab PO Q6HRS 03/26/20 Rx Ondansetron Odt (Ondansetron) 4 Mg Tab.rapdis 1 Tab PO PRN Q6-8HRS 03/24/20 Rx Nexium Capsule (Esomeprazole Magnesium) 40 Mg Capsule.dr Demarco Cap PO DAILY 03/20/20 Reported Amitriptyline Hcl 10 Mg Tablet 1 Tab PO QHS 90 05/27/19 Rx Celexa (Citalopram Hydrobromide) 20 Mg Tablet 1 Tab PO QHS 05/27/19 Rx Comments cxr 12/09 stable Impression . IMPRESSION: 1. Acute respiratory failure secondary to cardiac arrest. 2. Ventricular fibrillation cardiac arrest requiring 10 minutes of advanced cardiac life support protocol with return of spontaneous circulation. Unclear etiology. 3. Severe hypokalemia, corrected 4. Severe hypophosphatemia, corrected 5. Mildly increased bilirubin 6. History of hepatic steatosis. 7. History of tobacco use. 8. Low Mg 9. SARS-CoV-2 negative 10. Leukocytosis suspect reactive Echo report Critical Value: No <Conclusion> The left ventricular systolic function is normal. The Ejection Fraction is 55%. There is normal LV segmental wall motion. Trace mitral regurgitation. Trace tricuspid regurgitation with an estimated PAP of 22 mmHg. There is no evidence of significant pericardial effusion. Plan . Updated 12/09 Patient currently doing well on CPAP trial fully awake will proceed with extubation Appreciate cardiology input We will continue current support electrolytes corrected Discussed with RT and RN and Total cumulative critical care time of 30 minutes, reviewing the current documentation, examining the patient. Reviewing labs chest x-ray EKG. And formulating a plan Updated 12/08 Patient currently being rewarmed Appreciate cardiology input We will continue current support I suspect patient will awaken once she is warmed up, Discussed with RT and RN and Total cumulative critical care time of 30 minutes, reviewing the current do cumentation, examining the patient. Reviewing labs chest x-ray EKG. And formulating a plan 12/07 1. Continue present assist control mode. Follow ABGs and make necessary adjustment. 2. Continue hypothermic protocol. 3. Cardiology consultation and will consider need for cardiac catheterization. 4. Deep venous thrombosis prophylaxis with heparin. 5. Obtain D-dimers. 6. Stress ulcer prophylaxis. 7. Once hypothermic protocol is over, we will assess for mental status to make sure she does not have any anoxic brain injury. 8. We will not need an echocardiogram. 9. Discussed with RN /RT , Patients father and Cardiology. cath soon Total critical care time 40 minutes including review of the chart, imaging studies, lab, assessment and decision making. RAFAELA HWANG MD Dec 09, 2020 09:29
--- NOTE | 2020-12-09 09:44 | PDOC ---
PROGRESS NOTES Date of Service: DATE: 12/09/20 TIME: 09:44 Chief Complaint Chief Complaint Images Images Chest radiograph interpretation: There is an ET tube with its tip at level clavicles. There is an enteric tube seen at least as far distal as the mid stomach. The heart and pulmonary vessels appear normal. The lungs and pleural margins are clear. Impression: ET tube and enteric tube well-positioned. VTE Prophylaxis Ordered VTE Prophylaxis Devices: No VTE Pharmacological Prophylaxi: Yes Assessment/Plan Assessment/Plan IMPRESSION Anoxic encephalopathy post torsades and ventricular fibrillation, rewarmed from hypothermia, waking up Ventricular fibrillation Cardiac arrest -likely due to torsades with prolonged QT worsened by hypokalemia, hypomagnesemia as well as Reglan and Haldol administration. Hypokalemia -replace IV loss likely due to 4 days of persistent vomiting , however need to consider other causes SUCH as adrenal insufficiency Gastroparesis with Nausea and vomiting -has not tolerated erythromycin in the past and will with this event Reglan may need to be substituted. GI consulted Prolonged QT interval -worsened by hypokalemia hypomagnesemia and prolonged Reglan use. Hypomagnesemia -replaced due to torsades SEPSIS Osteoarthritis bilateral ankles -has outpatient orthopedic follow-up Anxiety with depression -we will hold SSRI while patient is on ventilator. Respiratory failure - due to cardiac arrest. No pulmonary history. Pulmonology consulted No intracranial hemorrhage. No mass effect. No hydrocephalus OCC THC use EKG with RBBB and QT prolongation with QTc of 506. Mg 1.6 and K 2.5 upon arrival. PLAN admit ICU BED FEN - NPO PPX - pepcid, lovenox FULL CODE Dispo - ICU for cardiac arrest mrsa screen neg og placement iv hydrocortisone 100mg q 12 hrs 24 hr urine for k random urine k ACTH CONT IV CEFIPIME BID IV CALCIUM GLUCONATE 1 GM X 1 CC time 35 minutes Justifications for Admission Justifications for Admission Other Justification History of Present Illness History of Present Illness Identification/Chief Complaint Chief Complaint Nausea and vomiting Source Source: Caregiver, Chart review History of Present Illness History of Present Illness Ms Lafleur is a 35yo F w/ PMHx Anxiety, Depression, GERD, barrets, High Choleste rol, gastroparesis, OA bilateral ankles, smoker who presented to the ED c/o intractable nausea and vomiting that progressed over the past 3 days to the point she was unable to hold down liquids or her reglan. She reported to ED she had more than 5 bouts of emesis per day. Labs significant for WBC 15.1, Hb 14.9, platelets 338, NA 138, K2.5, magnesium 1.6, BUN 5, CR 1, glucose 141, bilirubin 1.1, AST 67, lipase 57. She was given a bolus of lactated Ringer's and IV Reglan. No significant improvement and was given 5 mg IV Haldol. EKG was sinus tachycardia 153 bpm, prolonged QRS at 128, prolonged QTC at 506, right axis deviation, no STEMI CODE BLUE was called around 05 100 when case monitor. With torsades which converted to ventricular fibrillation. Patient was given IV magnesium and two 200 J shocks with ROSC. Patient was intubated during cardiac arrest and started on propofol and potassium GTT. She was not completely sedated on propofol and Versed was added. Patient seen by myself sedated on ventilator in ED. Chest radiograph with ET tube and OGT in appropriate position. Admitted ICU for further care. Past Medical History Cardiovascular: Hyperlipidemia Pulmonary: No pertinent hx GI: GERD, Other Heme/Onc: No pertinent hx Hepatobiliary: No pertinent hx Psych: Anxiety, Depression Rheumatologic: No pertinent hx Infectious disease: Other Renal/: No pertinent hx Endocrine: No pertinent hx Past Surgical History Past Surgical History: Cholecystectomy, Other Family History Family History: Family History Unknown Social History Smoke: <1 pack per day ALCOHOL: other Drugs: Marijuana Current Problem List Problem List Problems Medical Problems: (1) Cardiac arrest Status: Acute (2) Hypokalemia Status: Acute (3) Hypomagnesemia Status: Acute (4) Nausea and vomiting Status: Acute (5) Prolonged QT interval Status: Acute Current Medications Current Medications Current Medications Ringer's Solution 500 ml @ 500 mls/hr 1X ONCE IV ; Start 12/07/20 at 05:00; Stop 12/07/20 at 05:59; Status DC Ringer's Solution 500 ml @ 500 mls/hr 1X ONCE IV ; Start 12/07/20 at 05:00; Stop 12/07/20 at 05:59; Status DC Metoclopramide HCl (Reglan Vial) 10 mg 1X ONCE IVP ; Start 12/07/20 at 05:30; Stop 12/07/20 at 05:05; Status DC Ringer's Solution 500 ml @ 500 mls/hr 1X ONCE IV ; Start 12/07/20 at 05:30; Stop 12/07/20 at 06:29; Status DC Haloperidol Lactate (Haldol Inj) 5 mg STK-MED ONCE .ROUTE ; Start 12/07/20 at 05:05; Stop 12/07/20 at 05:05; Status DC Haloperidol Lactate (Haldol Inj) 5 mg 1X ONCE IVP Last administered on 12/07/20at 05:14; Start 12/07/20 at 05:30; Stop 12/07/20 at 05:31; Status DC Diphenhydramine HCl (Benadryl) 50 mg 1X ONCE IVP Last administered on 12/07/20at 05:14; Start 12/07/20 at 05:30; Stop 12/07/20 at 05:31; Status DC Ringer's Solution 500 ml @ 1,000 mls/hr 1X ONCE IV Last administered on 12/07/20at 05:13; Start 12/07/20 at 05:30; Stop 12/07/20 at 05:59; Status DC Propofol 100 ml @ As Directed STK-MED ONCE IV ; Start 12/07/20 at 05:56; Stop 12/07/20 at 05:56; Status DC Potassium Chloride/Sodium Chloride 1,000 ml @ 125 mls/hr Q8H IV Last administered on 12/07/20at 06:30; Start 12/07/20 at 06:30; Stop 12/07/20 at 14:29 Midazolam HCl (Versed) 5 mg STK-MED ONCE .ROUTE ; Start 12/07/20 at 06:29; Stop 12/07/20 at 06:30; Status DC Fentanyl Citrate 30 ml @ 0 mls/hr CONT PRN IV SEE PROTOCOL; Start 12/07/20 at 0 7:00 Chlorhexidine Gluconate (Peridex) 15 ml BID MM ; Start 12/07/20 at 09:00 Midazolam HCl 100 ml @ 0 mls/hr CONT PRN IV SEE PROTOCOL Last administered on 12/07/20at 07:15; Start 12/07/20 at 07:00 Magnesium Sulfate 100 ml @ 25 mls/hr 1X ONCE IV ; Start 12/07/20 at 07:30; Stop 12/07/20 at 11:29; Status UNV Famotidine (Pepcid Vial) 20 mg BID IVP ; Start 12/07/20 at 09:00; Status UNV Active Scripts Active Vancomycin Hcl 125 Mg Capsule 1 Cap PO QID 10 Days Potassium Chloride (Potassium Chloride) 20 Meq Tablet.er 20 Meq PO BIDAC 30 Days Reglan (Metoclopramide Hcl) 10 Mg Tablet 10 Mg PO TID PRN Compazine (Prochlorperazine Maleate) 10 Mg Tablet 1 Tab PO Q6HRS Ondansetron Odt (Ondansetron) 4 Mg Tab.rapdis 1 Tab PO PRN Q6-8HRS Amitriptyline Hcl 10 Mg Tablet 1 Tab PO QHS 90 Days Celexa (Citalopram Hydrobromide) 20 Mg Tablet 1 Tab PO QHS Reported Fenofibrate (Fenofibrate,Micronized) 134 Mg Capsule 134 Mg PO DAILY Nexium Capsule (Esomeprazole Magnesium) 40 Mg Capsule.dr 1 Cap PO DAILY Allergies Allergies: Coded Allergies: Corticosteroids (Glucocorticoids) (Verified Allergy, Severe, facial swelling, 05/25/20) Penicillins (Verified Allergy, Intermediate, hives, 05/25/20) I S O L A T I O N *CONTACT* (Verified Allergy, Unknown, 06/03/19) mrsa hydrocodone (Verified Adverse Reaction, Mild, Nausea, 05/25/20) 4-16 Hypokalemia -replace IV loss likely due to 4 days of persistent vomiting , however need to consider other causes SUCH as adrenal insufficiency k better , continue iv cefipime off vent, awake , cxr stable, afebrile ca 7.2 new consults ID, Nephrology CC time 35 minutes Vitals Vitals Vital Signs Date Time Temp Pulse Resp B/P (MAP) Pulse Ox O2 Delivery O2 Flow Rate FiO2 12/09/20 08:26 100 Ventilator 12/09/20 07:00 98.4 61 14 113/72 (86) 98.4 12/09/20 04:47 35.0 Physical Exam Physical Exam General: mild distress, OFF VENT HEENT: Atraumatic, PERRLA, EOMI, Mucous membr. moist/pink Lungs: Clear to auscultation, Normal air movement Heart: S1S2, RRR, no thrills, no rubs, no gallops, no murmurs Abdomen: Normal bowel sounds, Soft, No tenderness, No hepatosplenomegaly, No masses Extremities: No clubbing, No cyanosis, No edema, Normal pulses, No tenderness/swelling Skin: No rashes, No breakdown, No significant lesion Neuro: AWAKE mild mod confusion Psych/Mental Status: calm General: Cooperative, No acute distress Heart: Regular rate, Normal S1, Normal S2, No murmurs, Other Lungs: Clear Abdomen: Normal bowel sounds, Soft, No tenderness Extremities: No cyanosis, No edema, Normal pulses Skin: No significant lesion Labs LABS XR CHEST 1V Clinical History: Reason: hypotension 109 / Spl. Instructions: / History: Technique: AP view of the chest was obtained at 12/09/2020 3:02 AM. Comparison: December 07, 2020. Findings: The heart is normal in size. The pulmonary vessels appear normal. NG tube and enteric tube and right jugular line are again seen unchanged. The lungs and pleural margins are clear. Impression: Stable appearance of the chest. Electronically signed by: Lisa Santo III, MD (12/09/2020 4:07 AM) [facility] [place] DICTATED and SIGNED BY: LISA SANTO III, MD DATE: 12/09/20 [id number] Laboratory Tests Test 12/08/20 09:48 12/08/20 10:52 12/08/20 11:41 12/08/20 12:00 Glucose (Fingerstick) 51 mg/dL (70-99) 183 mg/dL (70-99) 123 mg/dL (70-99) Procalcitonin 0.13 ng/mL (0.00-0.10) Free Thyroxine 1.00 ng/dL (0.76-1.46) HIV (1&2) Antibody Screen Nonreactive (Nonreactive) Test 12/08/20 12:30 12/08/20 12:53 12/08/20 13:27 12/08/20 13:48 White Blood Count 10.5 x10^3/uL (4.0-11.0) Red Blood Count 3.31 x10^6/uL (3.50-5.40) Hemoglobin 10.7 g/dL (12.0-15.5) Hematocrit 32.1 % (36.0-47.0) Mean Corpuscular Volume 97 fL (79-100) Mean Corpuscular Hemoglobin 33 pg (25-35) Mean Corpuscular Hemoglobin Concent 34 g/dL (31-37) Red Cell Distribution Width 18.5 % (11.5-14.5) Platelet Count 196 x10^3/uL (140-400) Neutrophils (%) (Auto) 65 % (31-73) Lymphocytes (%) (Auto) 22 % (24-48) Monocytes (%) (Auto) 11 % (0-9) Eosinophils (%) (Auto) 1 % (0-3) Basophils (%) (Auto) 0 % (0-3) Neutrophils # (Auto) 6.8 x10^3/uL (1.8-7.7) Lymphocytes # (Auto) 2.3 x10^3/uL (1.0-4.8) Monocytes # (Auto) 1.2 x10^3/uL (0.0-1.1) Eosinophils # (Auto) 0.1 x10^3/uL (0.0-0.7) Basophils # (Auto) 0.0 x10^3/uL (0.0-0.2) Prothrombin Time 13.8 SEC (11.7-14.0) Prothromb Time International Ratio 1.1 (0.8-1.1) Sodium Level 148 mmol/L (136-145) Potassium Level 2.2 mmol/L (3.5-5.1) Chloride Level 112 mmol/L (98-107) Carbon Dioxide Level 24 mmol/L (21-32) Anion Gap 12 (6-14) Blood Urea Nitrogen 5 mg/dL (7-20) Creatinine 1.2 mg/dL (0.6-1.0) Estimated GFR (Cockcroft-Gault) 50.8 Glucose Level 80 mg/dL (70-99) Calcium Level 6.7 mg/dL (8.5-10.1) Ionized Calcium 0.99 mmol/L (1.13-1.32) Phosphorus Level 2.7 mg/dL (2.6-4.7) Magnesium Level 2.5 mg/dL (1.8-2.4) Glucose (Fingerstick) 86 mg/dL (70-99) 88 mg/dL (70-99) Cortisol PM Sample 2.0 ug/dL (3.1-16.7) Test 12/08/20 15:29 12/08/20 17:04 12/08/20 17:29 12/08/20 22:30 Glucose (Fingerstick) 80 mg/dL (70-99) 117 mg/dL (70-99) White Blood Count 13.8 x10^3/uL (4.0-11.0) Red Blood Count 3.37 x10^6/uL (3.50-5.40) Hemoglobin 10.9 g/dL (12.0-15.5) Hematocrit 33.0 % (36.0-47.0) Mean Corpuscular Volume 98 fL (79-100) Mean Corpuscular Hemoglobin 32 pg (25-35) Mean Corpuscular Hemoglobin Concent 33 g/dL (31-37) Red Cell Distribution Width 19.2 % (11.5-14.5) Platelet Count 231 x10^3/uL (140-400) Neutrophils (%) (Auto) 70 % (31-73) Lymphocytes (%) (Auto) 19 % (24-48) Monocytes (%) (Auto) 9 % (0-9) Eosinophils (%) (Auto) 1 % (0-3) Basophils (%) (Auto) 1 % (0-3) Neutrophils # (Auto) 9.7 x10^3/uL (1.8-7.7) Lymphocytes # (Auto) 2.6 x10^3/uL (1.0-4.8) Monocytes # (Auto) 1.3 x10^3/uL (0.0-1.1) Eosinophils # (Auto) 0.1 x10^3/uL (0.0-0.7) Basophils # (Auto) 0.1 x10^3/uL (0.0-0.2) Prothrombin Time 13.6 SEC (11.7-14.0) Prothromb Time International Ratio 1.1 (0.8-1.1) Sodium Level 145 mmol/L (136-145) 141 mmol/L (136-145) Potassium Level 2.5 mmol/L (3.5-5.1) 3.7 mmol/L (3.5-5.1) Chloride Level 110 mmol/L (98-107) 110 mmol/L (98-107) Carbon Dioxide Level 21 mmol/L (21-32) 21 mmol/L (21-32) Anion Gap 14 (6-14) 10 (6-14) Blood Urea Nitrogen 5 mg/dL (7-20) 5 mg/dL (7-20) Creatinine 1.2 mg/dL (0.6-1.0) 1.4 mg/dL (0.6-1.0) Estimated GFR (Cockcroft-Gault) 50.8 42.5 Glucose Level 122 mg/dL (70-99) 186 mg/dL (70-99) Calcium Level 6.4 mg/dL (8.5-10.1) 6.8 mg/dL (8.5-10.1) Ionized Calcium 0.90 mmol/L (1.13-1.32) Phosphorus Level 4.0 mg/dL (2.6-4.7) Magnesium Level 2.1 mg/dL (1.8-2.4) Test 12/09/20 05:15 12/09/20 08:00 12/09/20 08:39 White Blood Count 16.7 x10^3/uL (4.0-11.0) Red Blood Count 3.36 x10^6/uL (3.50-5.40) Hemoglobin 10.9 g/dL (12.0-15.5) Hematocrit 33.0 % (36.0-47.0) Mean Corpuscular Volume 98 fL (79-100) Mean Corpuscular Hemoglobin 33 pg (25-35) Mean Corpuscular Hemoglobin Concent 33 g/dL (31-37) Red Cell Distribution Width 19.1 % (11.5-14.5) Platelet Count 240 x10^3/uL (140-400) Neutrophils (%) (Auto) 86 % (31-73) Lymphocytes (%) (Auto) 9 % (24-48) Monocytes (%) (Auto) 5 % (0-9) Eosinophils (%) (Auto) 0 % (0-3) Basophils (%) (Auto) 0 % (0-3) Neutrophils # (Auto) 14.3 x10^3/uL (1.8-7.7) Lymphocytes # (Auto) 1.4 x10^3/uL (1.0-4.8) Monocytes # (Auto) 0.9 x10^3/uL (0.0-1.1) Eosinophils # (Auto) 0.0 x10^3/uL (0.0-0.7) Basophils # (Auto) 0.0 x10^3/uL (0.0-0.2) Sodium Level 143 mmol/L (136-145) Potassium Level 4.3 mmol/L (3.5-5.1) Chloride Level 110 mmol/L (98-107) Carbon Dioxide Level 20 mmol/L (21-32) Anion Gap 13 (6-14) Blood Urea Nitrogen 4 mg/dL (7-20) Creatinine 1.5 mg/dL (0.6-1.0) Estimated GFR (Cockcroft-Gault) 39.3 Glucose Level 149 mg/dL (70-99) Calcium Level 7.2 mg/dL (8.5-10.1) Magnesium Level 2.6 mg/dL (1.8-2.4) Thyroid Stimulating Hormone (TSH) 0.592 uIU/mL (0.358-3.74) O2 Saturation 99 % (92-99) Arterial Blood pH 7.35 (7.35-7.45) Arterial Blood pCO2 at Patient Temp 36 mmHg (35-46) Arterial Blood pO2 at Patient Temp 146 mmHg (85-108) Arterial Blood HCO3 20 mmol/L (21-28) Arterial Blood Base Excess -5 mmol/L (-3-3) FiO2 35% vent Glucose (Fingerstick) 112 mg/dL (70-99) Assessment and Plan Assessmemt and Plan Problems Medical Problems: (1) Cardiac arrest Status: Acute (2) Hypokalemia Status: Acute (3) Hypomagnesemia Status: Acute (4) Nausea and vomiting Status: Acute (5) Prolonged QT interval Status: Acute Comment Review of Relevant I have reviewed the following items josué (where applicable) has been applied. Labs Laboratory Tests Test 12/07/20 10:40 12/07/20 13:15 12/07/20 15:08 12/07/20 16:16 White Blood Count 26.6 x10^3/uL (4.0-11.0) Red Blood Count 4.06 x10^6/uL (3.50-5.40) Hemoglobin 13.1 g/dL (12.0-15.5) Hematocrit 39.5 % (36.0-47.0) Mean Corpuscular Volume 97 fL (79-100) Mean Corpuscular Hemoglobin 32 pg (25-35) Mean Corpuscular Hemoglobin Concent 33 g/dL (31-37) Red Cell Distribution Width 19.2 % (11.5-14.5) Platelet Count 264 x10^3/uL (140-400) Neutrophils (%) (Auto) 85 % (31-73) Lymphocytes (%) (Auto) 6 % (24-48) Monocytes (%) (Auto) 9 % (0-9) Eosinophils (%) (Auto) 0 % (0-3) Basophils (%) (Auto) 0 % (0-3) Neutrophils # (Auto) 22.6 x10^3/uL (1.8-7.7) Lymphocytes # (Auto) 1.6 x10^3/uL (1.0-4.8) Monocytes # (Auto) 2.3 x10^3/uL (0.0-1.1) Eosinophils # (Auto) 0.0 x10^3/uL (0.0-0.7) Basophils # (Auto) 0.0 x10^3/uL (0.0-0.2) Segmented Neutrophils % 87 % (35-66) Band Neutrophils % 4 % (0-9) Lymphocytes % 7 % (24-48) Monocytes % 2 % (0-10) Platelet Estimate Adequate (ADEQUATE) Anisocytosis Present Prothrombin Time 14.3 SEC (11.7-14.0) Prothromb Time International Ratio 1.2 (0.8-1.1) Activated Partial Thromboplast Time 25 SEC (24-38) Sodium Level 139 mmol/L (136-145) Potassium Level 3.0 mmol/L (3.5-5.1) Chloride Level 103 mmol/L (98-107) Carbon Dioxide Level 27 mmol/L (21-32) Anion Gap 9 (6-14) Blood Urea Nitrogen 4 mg/dL (7-20) Creatinine 0.7 mg/dL (0.6-1.0) Estimated GFR (Cockcroft-Gault) 94.7 Glucose Level 145 mg/dL (70-99) Calcium Level 7.5 mg/dL (8.5-10.1) Phosphorus Level 2.2 mg/dL (2.6-4.7) Magnesium Level 3.9 mg/dL (1.8-2.4) Glucose (Fingerstick) 122 mg/dL (70-99) 124 mg/dL (70-99) 131 mg/dL (70-99) Test 12/07/20 17:00 12/07/20 21:09 12/07/20 22:53 12/08/20 04:13 White Blood Count 22.4 x10^3/uL (4.0-11.0) 15.6 x10^3/uL (4.0-11.0) Red Blood Count 4.02 x10^6/uL (3.50-5.40) 3.65 x10^6/uL (3.50-5.40) Hemoglobin 13.2 g/dL (12.0-15.5) 12.0 g/dL (12.0-15.5) Hematocrit 38.9 % (36.0-47.0) 35.3 % (36.0-47.0) Mean Corpuscular Volume 97 fL (79-100) 97 fL (79-100) Mean Corpuscular Hemoglobin 33 pg (25-35) 33 pg (25-35) Mean Corpuscular Hemoglobin Concent 34 g/dL (31-37) 34 g/dL (31-37) Red Cell Distribution Width 18.9 % (11.5-14.5) 18.8 % (11.5-14.5) Platelet Count 260 x10^3/uL (140-400) 226 x10^3/uL (140-400) Neutrophils (%) (Auto) 79 % (31-73) 70 % (31-73) Lymphocytes (%) (Auto) 11 % (24-48) 21 % (24-48) Monocytes (%) (Auto) 9 % (0-9) 9 % (0-9) Eosinophils (%) (Auto) 0 % (0-3) 0 % (0-3) Basophils (%) (Auto) 1 % (0-3) 0 % (0-3) Neutrophils # (Auto) 17.6 x10^3/uL (1.8-7.7) 10.8 x10^3/uL (1.8-7.7) Lymphocytes # (Auto) 2.5 x10^3/uL (1.0-4.8) 3.2 x10^3/uL (1.0-4.8) Monocytes # (Auto) 2.1 x10^3/uL (0.0-1.1) 1.4 x10^3/uL (0.0-1.1) Eosinophils # (Auto) 0.0 x10^3/uL (0.0-0.7) 0.0 x10^3/uL (0.0-0.7) Basophils # (Auto) 0.1 x10^3/uL (0.0-0.2) 0.1 x10^3/uL (0.0-0.2) Segmented Neutrophils % 84 % (35-66) Lymphocytes % 9 % (24-48) Monocytes % 7 % (0-10) Platelet Estimate Adequate (ADEQUATE) Anisocytosis Slight Prothrombin Time 13.9 SEC (11.7-14.0) 14.3 SEC (11.7-14.0) Prothromb Time International Ratio 1.1 (0.8-1.1) 1.2 (0.8-1.1) Activated Partial Thromboplast Time 30 SEC (24-38) 43 SEC (24-38) Sodium Level 142 mmol/L (136-145) 144 mmol/L (136-145) Potassium Level 3.6 mmol/L (3.5-5.1) 2.7 mmol/L (3.5-5.1) Chloride Level 106 mmol/L (98-107) 108 mmol/L (98-107) Carbon Dioxide Level 25 mmol/L (21-32) 26 mmol/L (21-32) Anion Gap 11 (6-14) 10 (6-14) Blood Urea Nitrogen 4 mg/dL (7-20) 4 mg/dL (7-20) Creatinine 0.8 mg/dL (0.6-1.0) 0.7 mg/dL (0.6-1.0) Estimated GFR (Cockcroft-Gault) 81.2 94.7 Glucose Level 113 mg/dL (70-99) 99 mg/dL (70-99) Calcium Level 6.9 mg/dL (8.5-10.1) 6.9 mg/dL (8.5-10.1) Phosphorus Level 5.7 mg/dL (2.6-4.7) 3.5 mg/dL (2.6-4.7) Magnesium Level 3.3 mg/dL (1.8-2.4) 3.0 mg/dL (1.8-2.4) Glucose (Fingerstick) 112 mg/dL (70-99) 83 mg/dL (70-99) Test 12/08/20 05:20 12/08/20 07:22 12/08/20 07:50 12/08/20 08:30 White Blood Count 12.5 x10^3/uL (4.0-11.0) Red Blood Count 3.74 x10^6/uL (3.50-5.40) Hemoglobin 12.2 g/dL (12.0-15.5) Hematocrit 36.6 % (36.0-47.0) Mean Corpuscular Volume 98 fL (79-100) Mean Corpuscular Hemoglobin 33 pg (25-35) Mean Corpuscular Hemoglobin Concent 33 g/dL (31-37) Red Cell Distribution Width 18.9 % (11.5-14.5) Platelet Count 208 x10^3/uL (140-400) Neutrophils (%) (Auto) 67 % (31-73) Lymphocytes (%) (Auto) 20 % (24-48) Monocytes (%) (Auto) 12 % (0-9) Eosinophils (%) (Auto) 0 % (0-3) Basophils (%) (Auto) 0 % (0-3) Neutrophils # (Auto) 8.4 x10^3/uL (1.8-7.7) Lymphocytes # (Auto) 2.5 x10^3/uL (1.0-4.8) Monocytes # (Auto) 1.5 x10^3/uL (0.0-1.1) Eosinophils # (Auto) 0.1 x10^3/uL (0.0-0.7) Basophils # (Auto) 0.0 x10^3/uL (0.0-0.2) Prothrombin Time 13.3 SEC (11.7-14.0) Prothromb Time International Ratio 1.1 (0.8-1.1) Activated Partial Thromboplast Time 42 SEC (24-38) Sodium Level 144 mmol/L (136-145) Potassium Level 3.1 mmol/L (3.5-5.1) 2.8 mmol/L (3.5-5.1) Chloride Level 110 mmol/L (98-107) Carbon Dioxide Level 24 mmol/L (21-32) Anion Gap 10 (6-14) Blood Urea Nitrogen 5 mg/dL (7-20) Creatinine 1.0 mg/dL (0.6-1.0) Estimated GFR (Cockcroft-Gault) 62.7 Glucose Level 92 mg/dL (70-99) Calcium Level 6.7 mg/dL (8.5-10.1) Phosphorus Level 3.5 mg/dL (2.6-4.7) Magnesium Level 2.7 mg/dL (1.8-2.4) Cortisol AM Sample 8.6 ug/dL (4.3-22.4) Glucose (Fingerstick) 88 mg/dL (70-99) O2 Saturation 99 % (92-99) Arterial Blood pH 7.36 (7.35-7.45) Arterial Blood pH (Temp corrected) 7.40 Arterial Blood pCO2 at Patient Temp 40 mmHg (35-46) Arterial Blood pCO2 (Temp correct) 35 mmHg Arterial Blood pO2 at Patient Temp 148 mmHg (85-108) Arterial Blood pO2 (Temp corrected) 130 mmHg Arterial Blood HCO3 22 mmol/L (21-28) Arterial Blood Base Excess -3 mmol/L (-3-3) FiO2 35/vent SARS-CoV-2 RNA (RICK) Negative (Negative) Test 12/08/20 08:35 12/08/20 09:00 12/08/20 09:48 12/08/20 10:52 Glucose (Fingerstick) 79 mg/dL (70-99) 51 mg/dL (70-99) 183 mg/dL (70-99) SARS-CoV-2 Antigen (Rapid) Negative (NEGATIVE) Test 12/08/20 11:41 12/08/20 12:00 12/08/20 12:30 12/08/20 12:53 Glucose (Fingerstick) 123 mg/dL (70-99) 86 mg/dL (70-99) Procalcitonin 0.13 ng/mL (0.00-0.10) Free Thyroxine 1.00 ng/dL (0.76-1.46) HIV (1&2) Antibody Screen Nonreactive (Nonreactive) White Blood Count 10.5 x10^3/uL (4.0-11.0) Red Blood Count 3.31 x10^6/uL (3.50-5.40) Hemoglobin 10.7 g/dL (12.0-15.5) Hematocrit 32.1 % (36.0-47.0) Mean Corpuscular Volume 97 fL (79-100) Mean Corpuscular Hemoglobin 33 pg (25-35) Mean Corpuscular Hemoglobin Concent 34 g/dL (31-37) Red Cell Distribution Width 18.5 % (11.5-14.5) Platelet Count 196 x10^3/uL (140-400) Neutrophils (%) (Auto) 65 % (31-73) Lymphocytes (%) (Auto) 22 % (24-48) Monocytes (%) (Auto) 11 % (0-9) Eosinophils (%) (Auto) 1 % (0-3) Basophils (%) (Auto) 0 % (0-3) Neutrophils # (Auto) 6.8 x10^3/uL (1.8-7.7) Lymphocytes # (Auto) 2.3 x10^3/uL (1.0-4.8) Monocytes # (Auto) 1.2 x10^3/uL (0.0-1.1) Eosinophils # (Auto) 0.1 x10^3/uL (0.0-0.7) Basophils # (Auto) 0.0 x10^3/uL (0.0-0.2) Prothrombin Time 13.8 SEC (11.7-14.0) Prothromb Time International Ratio 1.1 (0.8-1.1) Sodium Level 148 mmol/L (136-145) Potassium Level 2.2 mmol/L (3.5-5.1) Chloride Level 112 mmol/L (98-107) Carbon Dioxide Level 24 mmol/L (21-32) Anion Gap 12 (6-14) Blood Urea Nitrogen 5 mg/dL (7-20) Creatinine 1.2 mg/dL (0.6-1.0) Estimated GFR (Cockcroft-Gault) 50.8 Glucose Level 80 mg/dL (70-99) Calcium Level 6.7 mg/dL (8.5-10.1) Ionized Calcium 0.99 mmol/L (1.13-1.32) Phosphorus Level 2.7 mg/dL (2.6-4.7) Magnesium Level 2.5 mg/dL (1.8-2.4) Test 12/08/20 13:27 12/08/20 13:48 12/08/20 15:29 12/08/20 17:04 Cortisol PM Sample 2.0 ug/dL (3.1-16.7) Glucose (Fingerstick) 88 mg/dL (70-99) 80 mg/dL (70-99) 117 mg/dL (70-99) Test 12/08/20 17:29 12/08/20 22:30 12/09/20 05:15 12/09/20 08:00 White Blood Count 13.8 x10^3/uL (4.0-11.0) 16.7 x10^3/uL (4.0-11.0) Red Blood Count 3.37 x10^6/uL (3.50-5.40) 3.36 x10^6/uL (3.50-5.40) Hemoglobin 10.9 g/dL (12.0-15.5) 10.9 g/dL (12.0-15.5) Hematocrit 33.0 % (36.0-47.0) 33.0 % (36.0-47.0) Mean Corpuscular Volume 98 fL (79-100) 98 fL (79-100) Mean Corpuscular Hemoglobin 32 pg (25-35) 33 pg (25-35) Mean Corpuscular Hemoglobin Concent 33 g/dL (31-37) 33 g/dL (31-37) Red Cell Distribution Width 19.2 % (11.5-14.5) 19.1 % (11.5-14.5) Platelet Count 231 x10^3/uL (140-400) 240 x10^3/uL (140-400) Neutrophils (%) (Auto) 70 % (31-73) 86 % (31-73) Lymphocytes (%) (Auto) 19 % (24-48) 9 % (24-48) Monocytes (%) (Auto) 9 % (0-9) 5 % (0-9) Eosinophils (%) (Auto) 1 % (0-3) 0 % (0-3) Basophils (%) (Auto) 1 % (0-3) 0 % (0-3) Neutrophils # (Auto) 9.7 x10^3/uL (1.8-7.7) 14.3 x10^3/uL (1.8-7.7) Lymphocytes # (Auto) 2.6 x10^3/uL (1.0-4.8) 1.4 x10^3/uL (1.0-4.8) Monocytes # (Auto) 1.3 x10^3/uL (0.0-1.1) 0.9 x10^3/uL (0.0-1.1) Eosinophils # (Auto) 0.1 x10^3/uL (0.0-0.7) 0.0 x10^3/uL (0.0-0.7) Basophils # (Auto) 0.1 x10^3/uL (0.0-0.2) 0.0 x10^3/uL (0.0-0.2) Prothrombin Time 13.6 SEC (11.7-14.0) Prothromb Time International Ratio 1.1 (0.8-1.1) Sodium Level 145 mmol/L (136-145) 141 mmol/L (136-145) 143 mmol/L (136-145) Potassium Level 2.5 mmol/L (3.5-5.1) 3.7 mmol/L (3.5-5.1) 4.3 mmol/L (3.5-5.1) Chloride Level 110 mmol/L (98-107) 110 mmol/L (98-107) 110 mmol/L (98-107) Carbon Dioxide Level 21 mmol/L (21-32) 21 mmol/L (21-32) 20 mmol/L (21-32) Anion Gap 14 (6-14) 10 (6-14) 13 (6-14) Blood Urea Nitrogen 5 mg/dL (7-20) 5 mg/dL (7-20) 4 mg/dL (7-20) Creatinine 1.2 mg/dL (0.6-1.0) 1.4 mg/dL (0.6-1.0) 1.5 mg/dL (0.6-1.0) Estimated GFR (Cockcroft-Gault) 50.8 42.5 39.3 Glucose Level 122 mg/dL (70-99) 186 mg/dL (70-99) 149 mg/dL (70-99) Calcium Level 6.4 mg/dL (8.5-10.1) 6.8 mg/dL (8.5-10.1) 7.2 mg/dL (8.5-10.1) Ionized Calcium 0.90 mmol/L (1.13-1.32) Phosphorus Level 4.0 mg/dL (2.6-4.7) Magnesium Level 2.1 mg/dL (1.8-2.4) 2.6 mg/dL (1.8-2.4) Thyroid Stimulating Hormone (TSH) 0.592 uIU/mL (0.358-3.74) O2 Saturation 99 % (92-99) Arterial Blood pH 7.35 (7.35-7.45) Arterial Blood pCO2 at Patient Temp 36 mmHg (35-46) Arterial Blood pO2 at Patient Temp 146 mmHg (85-108) Arterial Blood HCO3 20 mmol/L (21-28) Arterial Blood Base Excess -5 mmol/L (-3-3) FiO2 35% vent Test 12/09/20 08:39 Glucose (Fingerstick) 112 mg/dL (70-99) Laboratory Tests Test 12/08/20 09:48 12/08/20 10:52 12/08/20 11:41 12/08/20 12:00 Glucose (Fingerstick) 51 mg/dL (70-99) 183 mg/dL (70-99) 123 mg/dL (70-99) Procalcitonin 0.13 ng/mL (0.00-0.10) Free Thyroxine 1.00 ng/dL (0.76-1.46) HIV (1&2) Antibody Screen Nonreactive (Nonreactive) Test 12/08/20 12:30 12/08/20 12:53 12/08/20 13:27 12/08/20 13:48 White Blood Count 10.5 x10^3/uL (4.0-11.0) Red Blood Count 3.31 x10^6/uL (3.50-5.40) Hemoglobin 10.7 g/dL (12.0-15.5) Hematocrit 32.1 % (36.0-47.0) Mean Corpuscular Volume 97 fL (79-100) Mean Corpuscular Hemoglobin 33 pg (25-35) Mean Corpuscular Hemoglobin Concent 34 g/dL (31-37) Red Cell Distribution Width 18.5 % (11.5-14.5) Platelet Count 196 x10^3/uL (140-400) Neutrophils (%) (Auto) 65 % (31-73) Lymphocytes (%) (Auto) 22 % (24-48) Monocytes (%) (Auto) 11 % (0-9) Eosinophils (%) (Auto) 1 % (0-3) Basophils (%) (Auto) 0 % (0-3) Neutrophils # (Auto) 6.8 x10^3/uL (1.8-7.7) Lymphocytes # (Auto) 2.3 x10^3/uL (1.0-4.8) Monocytes # (Auto) 1.2 x10^3/uL (0.0-1.1) Eosinophils # (Auto) 0.1 x10^3/uL (0.0-0.7) Basophils # (Auto) 0.0 x10^3/uL (0.0-0.2) Prothrombin Time 13.8 SEC (11.7-14.0) Prothromb Time International Ratio 1.1 (0.8-1.1) Sodium Level 148 mmol/L (136-145) Potassium Level 2.2 mmol/L (3.5-5.1) Chloride Level 112 mmol/L (98-107) Carbon Dioxide Level 24 mmol/L (21-32) Anion Gap 12 (6-14) Blood Urea Nitrogen 5 mg/dL (7-20) Creatinine 1.2 mg/dL (0.6-1.0) Estimated GFR (Cockcroft-Gault) 50.8 Glucose Level 80 mg/dL (70-99) Calcium Level 6.7 mg/dL (8.5-10.1) Ionized Calcium 0.99 mmol/L (1.13-1.32) Phosphorus Level 2.7 mg/dL (2.6-4.7) Magnesium Level 2.5 mg/dL (1.8-2.4) Glucose (Fingerstick) 86 mg/dL (70-99) 88 mg/dL (70-99) Cortisol PM Sample 2.0 ug/dL (3.1-16.7) Test 12/08/20 15:29 12/08/20 17:04 12/08/20 17:29 12/08/20 22:30 Glucose (Fingerstick) 80 mg/dL (70-99) 117 mg/dL (70-99) White Blood Count 13.8 x10^3/uL (4.0-11.0) Red Blood Count 3.37 x10^6/uL (3.50-5.40) Hemoglobin 10.9 g/dL (12.0-15.5) Hematocrit 33.0 % (36.0-47.0) Mean Corpuscular Volume 98 fL (79-100) Mean Corpuscular Hemoglobin 32 pg (25-35) Mean Corpuscular Hemoglobin Concent 33 g/dL (31-37) Red Cell Distribution Width 19.2 % (11.5-14.5) Platelet Count 231 x10^3/uL (140-400) Neutrophils (%) (Auto) 70 % (31-73) Lymphocytes (%) (Auto) 19 % (24-48) Monocytes (%) (Auto) 9 % (0-9) Eosinophils (%) (Auto) 1 % (0-3) Basophils (%) (Auto) 1 % (0-3) Neutrophils # (Auto) 9.7 x10^3/uL (1.8-7.7) Lymphocytes # (Auto) 2.6 x10^3/uL (1.0-4.8) Monocytes # (Auto) 1.3 x10^3/uL (0.0-1.1) Eosinophils # (Auto) 0.1 x10^3/uL (0.0-0.7) Basophils # (Auto) 0.1 x10^3/uL (0.0-0.2) Prothrombin Time 13.6 SEC (11.7-14.0) Prothromb Time International Ratio 1.1 (0.8-1.1) Sodium Level 145 mmol/L (136-145) 141 mmol/L (136-145) Potassium Level 2.5 mmol/L (3.5-5.1) 3.7 mmol/L (3.5-5.1) Chloride Level 110 mmol/L (98-107) 110 mmol/L (98-107) Carbon Dioxide Level 21 mmol/L (21-32) 21 mmol/L (21-32) Anion Gap 14 (6-14) 10 (6-14) Blood Urea Nitrogen 5 mg/dL (7-20) 5 mg/dL (7-20) Creatinine 1.2 mg/dL (0.6-1.0) 1.4 mg/dL (0.6-1.0) Estimated GFR (Cockcroft-Gault) 50.8 42.5 Glucose Level 122 mg/dL (70-99) 186 mg/dL (70-99) Calcium Level 6.4 mg/dL (8.5-10.1) 6.8 mg/dL (8.5-10.1) Ionized Calcium 0.90 mmol/L (1.13-1.32) Phosphorus Level 4.0 mg/dL (2.6-4.7) Magnesium Level 2.1 mg/dL (1.8-2.4) Test 12/09/20 05:15 12/09/20 08:00 12/09/20 08:39 White Blood Count 16.7 x10^3/uL (4.0-11.0) Red Blood Count 3.36 x10^6/uL (3.50-5.40) Hemoglobin 10.9 g/dL (12.0-15.5) Hematocrit 33.0 % (36.0-47.0) Mean Corpuscular Volume 98 fL (79-100) Mean Corpuscular Hemoglobin 33 pg (25-35) Mean Corpuscular Hemoglobin Concent 33 g/dL (31-37) Red Cell Distribution Width 19.1 % (11.5-14.5) Platelet Count 240 x10^3/uL (140-400) Neutrophils (%) (Auto) 86 % (31-73) Lymphocytes (%) (Auto) 9 % (24-48) Monocytes (%) (Auto) 5 % (0-9) Eosinophils (%) (Auto) 0 % (0-3) Basophils (%) (Auto) 0 % (0-3) Neutrophils # (Auto) 14.3 x10^3/uL (1.8-7.7) Lymphocytes # (Auto) 1.4 x10^3/uL (1.0-4.8) Monocytes # (Auto) 0.9 x10^3/uL (0.0-1.1) Eosinophils # (Auto) 0.0 x10^3/uL (0.0-0.7) Basophils # (Auto) 0.0 x10^3/uL (0.0-0.2) Sodium Level 143 mmol/L (136-145) Potassium Level 4.3 mmol/L (3.5-5.1) Chloride Level 110 mmol/L (98-107) Carbon Dioxide Level 20 mmol/L (21-32) Anion Gap 13 (6-14) Blood Urea Nitrogen 4 mg/dL (7-20) Creatinine 1.5 mg/dL (0.6-1.0) Estimated GFR (Cockcroft-Gault) 39.3 Glucose Level 149 mg/dL (70-99) Calcium Level 7.2 mg/dL (8.5-10.1) Magnesium Level 2.6 mg/dL (1.8-2.4) Thyroid Stimulating Hormone (TSH) 0.592 uIU/mL (0.358-3.74) O2 Saturation 99 % (92-99) Arterial Blood pH 7.35 (7.35-7.45) Arterial Blood pCO2 at Patient Temp 36 mmHg (35-46) Arterial Blood pO2 at Patient Temp 146 mmHg (85-108) Arterial Blood HCO3 20 mmol/L (21-28) Arterial Blood Base Excess -5 mmol/L (-3-3) FiO2 35% vent Glucose (Fingerstick) 112 mg/dL (70-99) Microbiology 12/07/20 Urine Culture - Final, Complete Medications Current Medications Ringer's Solution 500 ml @ 500 mls/hr 1X ONCE IV ; Start 12/07/20 at 05:00; Stop 12/07/20 at 05:59; Status DC Ringer's Solution 500 ml @ 500 mls/hr 1X ONCE IV ; Start 12/07/20 at 05:00; Stop 12/07/20 at 05:59; Status DC Metoclopramide HCl (Reglan Vial) 10 mg 1X ONCE IVP ; Start 12/07/20 at 05:30; Stop 12/07/20 at 05:05; Status DC Ringer's Solution 500 ml @ 500 mls/hr 1X ONCE IV ; Start 12/07/20 at 05:30; Stop 12/07/20 at 06:29; Status DC Haloperidol Lactate (Haldol Inj) 5 mg STK-MED ONCE .ROUTE ; Start 12/07/20 at 05:05; Stop 12/07/20 at 05:05; Status DC Haloperidol Lactate (Haldol Inj) 5 mg 1X ONCE IVP Last administered on 12/07/20at 05:14; Start 12/07/20 at 05:30; Stop 12/07/20 at 05:31; Status DC Diphenhydramine HCl (Benadryl) 50 mg 1X ONCE IVP Last administered on 12/07/20at 05:14; Start 12/07/20 at 05:30; Stop 12/07/20 at 05:31; Status DC Ringer's Solution 500 ml @ 1,000 mls/hr 1X ONCE IV Last administered on 12/07/20at 05:13; Start 12/07/20 at 05:30; Stop 12/07/20 at 05:59; Status DC Propofol 100 ml @ As Directed STK-MED ONCE IV ; Start 12/07/20 at 05:56; Stop 12/07/20 at 05:56; Status DC Potassium Chloride/Sodium Chloride 1,000 ml @ 125 mls/hr Q8H IV Last administered on 12/07/20at 06:30; Start 12/07/20 at 06:30; Stop 12/07/20 at 14:29; Status DC Midazolam HCl (Versed) 5 mg STK-MED ONCE .ROUTE ; Start 12/07/20 at 06:29; Stop 12/07/20 at 06:30; Status DC Fentanyl Citrate 30 ml @ 0 mls/hr CONT PRN IV SEE PROTOCOL; Start 12/07/20 at 07:00; Status Cancel Chlorhexidine Gluconate (Peridex) 15 ml BID MM Last administered on 12/07/20at 09:00; Start 12/07/20 at 09:00; Stop 12/07/20 at 18:44; Status DC Midazolam HCl 100 ml @ 0 mls/hr CONT PRN IV SEE PROTOCOL Last administered on 12/07/20at 20:29; Start 12/07/20 at 07:00 Magnesium Sulfate 100 ml @ 25 mls/hr 1X ONCE IV Last administered on 12/07/20at 08:47; Start 12/07/20 at 07:30; Stop 12/07/20 at 11:29; Status DC Famotidine (Pepcid Vial) 20 mg BID IVP ; Start 12/07/20 at 09:00; Stop 12/07/20 at 10:56; Status DC Buspirone HCl (Buspar) 30 mg Q8H NG Last administered on 12/08/20at 16:18; Start 12/07/20 at 08:00; Stop 12/08/20 at 21:06; Status DC Acetaminophen (Tylenol) 650 mg Q4H NG Last administered on 12/08/20at 16:22; Start 12/07/20 at 08:00; Stop 12/08/20 at 22:07; Status DC Glycerin/ Hypromellose/ Polyethylene (Artificial Tears) 1 drop Q6HRS OU Last administered on 12/07/20at 17:25; Start 12/07/20 at 12:00; Stop 12/07/20 at 18:44; Status DC Glycerin/ Hypromellose/ Polyethylene (Artificial Tears) 1 drop PRN Q15MIN PRN OU DRY EYE; Start 12/07/20 at 08:00 Heparin Sodium (Porcine) (Heparin Sodium) 5,000 unit BID SQ Last administered on 12/09/20at 08:30; Start 12/07/20 at 09:00 Pantoprazole Sodium (PROTONIX VIAL for IV PUSH) 40 mg DAILY IVP Last administered on 12/09/20 08:29; Start 12/07/20 at 09:00 Fentanyl Citrate 30 ml @ 0 mls/hr CONT PRN IV PER PROTOCOL. Last administered on 12/09/20 04:17; Start 12/07/20 at 08:00 Propofol 100 ml @ 0 mls/hr CONT PRN IV PER PROTOCOL. Last administered on 12/09/20 04:08; Start 12/07/20 at 08:00 Midazolam HCl 100 ml @ 0 mls/hr CONT PRN IV PER PROTOCOL; Start 12/07/20 at 08:00; Status UNV Vecuronium Termo (Norcuron Bolus) 6 mg PRN Q1HR PRN IV SHIVERING Last administered on 4/14/21at 08:47; Start 12/07/20 at 08:00 Potassium Chloride/Water 100 ml @ 100 mls/hr Q1H IV Last administered on 12/07/20at 10:49; Start 12/07/20 at 09:00; Stop 12/07/20 at 12:59; Status DC Potassium Chloride/Water 100 ml @ 100 mls/hr Q1H IV ; Start 12/07/20 at 12:00; Stop 12/07/20 at 14:59; Status DC Potassium Phosphate 10 mmol/ Sodium Chloride 103.3333 ml @ 51.667 m... Q2H IV Last administered on 12/07/20at 12:00; Start 12/07/20 at 10:00; Stop 12/07/20 at 13:59; Status DC Potassium Phosphate 10 mmol/ Sodium Chloride 103.3333 ml @ 51.667 m... Q2H IV Last administered on 12/07/20at 13:43; Start 12/07/20 at 12:00; Stop 12/07/20 at 15:59; Status DC Sodium Bicarbonate (Sodium Bicarb Adult 8.4% Syr) 50 meq STK-MED ONCE .ROUTE ; Start 12/07/20 at 12:00; Stop 12/07/20 at 15:47; Status DC Amiodarone HCl (Cordarone) 300 mg STK-MED ONCE .ROUTE ; Start 12/07/20 at 12:00; Stop 12/07/20 at 15:47; Status DC Epinephrine HCl (EPINEPHrine SYRINGE) 3 mg STK-MED ONCE .ROUTE ; Start 12/07/20 at 12:00; Stop 12/07/20 at 15:47; Status DC Midazolam HCl (Versed) 5 mg STK-MED ONCE .ROUTE ; Start 12/07/20 at 12:00; Stop 12/07/20 at 15:47; Status DC Magnesium Sulfate/ Dextrose (Magnesium Sulfate PREMIX 1GM) 1 gm STK-MED ONCE IV ; Start 12/07/20 at 12:00; Stop 12/07/20 at 15:47; Status DC Sodium Chloride 1,000 ml @ 50 mls/hr Q20H IV Last administered on 12/08/20at 13:13; Start 12/07/20 at 17:30; Stop 12/08/20 at 13:53; Status DC Potassium Chloride/Water 100 ml @ 100 mls/hr 1X ONCE IV Last administered on 12/07/20at 23:35; Start 12/07/20 at 23:30; Stop 12/08/20 at 00:29; Status DC Dopamine HCl/ Dextrose 250 ml @ 13.481 mls/ hr CONT PRN IV SEE I/O RECORD; Start 12/08/20 at 06:45 Dextrose (Dextrose 50%-Water Syringe) 12.5 gm PRN Q15MIN PRN IV SEE COMMENTS Last administered on 12/08/20at 10:04; Start 12/08/20 at 10:00 Potassium Chloride/Water 100 ml @ 100 mls/hr 1X ONCE IV Last administered on 12/08/20at 14:27; Start 12/08/20 at 13:45; Stop 12/08/20 at 14:44; Status DC Dextrose/Sodium Chloride 1,000 ml @ 75 mls/hr [id number] IV Last administered on 12/08/20at 14:16; Start 12/08/20 at 13:45; Stop 12/08/20 at 18:42; Status DC Norepinephrine Bitartrate 8 mg/ Dextrose 258 ml @ 13.913 mls/ hr CONT PRN IV PER PROTOCOL Last administered on 12/08/20at 15:11; Start 12/08/20 at 15:00 Hydrocortisone Sodium Succinate (Solu-CORTEF) 100 mg Q12HR IVP Last administered on 12/09/20at 08:29; Start 12/08/20 at 15:30 Potassium Chloride/Dextrose/ Sod Cl 1,000 ml @ 125 mls/hr Q8H IV Last administered on 12/09/20at 04:09; Start 12/08/20 at 19:00 Potassium Chloride/Water 100 ml @ 100 mls/hr Q1H IV Last administered on 12/08/20at 20:03; Start 12/08/20 at 19:00; Stop 12/08/20 at 20:59; Status DC Magnesium Sulfate/ Dextrose 100 ml @ 100 mls/hr 1X ONCE IV Last administered on 12/08/20at 18:51; Start 12/08/20 at 19:00; Stop 12/08/20 at 19:59; Status DC Cefepime HCl (Maxipime) 2 gm Q12HR IVP Last administered on 12/09/20at 08:29; Start 12/08/20 at 21:30 Calcium Gluconate 1000 mg/Sodium Chloride 110 ml @ 220 mls/hr 1X ONCE IV Last administered on 12/08/20at 23:40; Start 12/08/20 at 22:30; Stop 12/08/20 at 22:59; Status DC Dexmedetomidine HCl 400 mcg/ Sodium Chloride 100 ml @ 0 mls/hr CONT PRN IV PER PROTOCOL; Start 12/09/20 at 08:45 Sodium Chloride 500 ml @ 500 mls/hr 1X PRN PRN IV SEE COMMENTS; Start 12/09/20 at 08:45 Atropine Sulfate (ATROPINE 0.5mg SYRINGE) 0.5 mg PRN Q5MIN PRN IV SEE COMMENTS; Start 12/09/20 at 08:45 Active Scripts Active Vancomycin Hcl 125 Mg Capsule 1 Cap PO QID 10 Days Potassium Chloride (Potassium Chloride) 20 Meq Tablet.er 20 Meq PO BIDAC 30 Days Reglan (Metoclopramide Hcl) 10 Mg Tablet 10 Mg PO TID PRN Compazine (Prochlorperazine Maleate) 10 Mg Tablet 1 Tab PO Q6HRS Ondansetron Odt (Ondansetron) 4 Mg Tab.rapdis 1 Tab PO PRN Q6-8HRS Amitriptyline Hcl 10 Mg Tablet 1 Tab PO QHS 90 Days Celexa (Citalopram Hydrobromide) 20 Mg Tablet 1 Tab PO QHS Reported Fenofibrate (Fenofibrate,Micronized) 134 Mg Capsule 134 Mg PO DAILY Nexium Capsule (Esomeprazole Magnesium) 40 Mg Capsule. 1 Cap PO DAILY Vitals/I & O Vital Sign - Last 24 Hours 12/08/20 12/08/20 12/08/20 12/08/20 10:00 10:00 10:13 10:30 Temp 94.8 94.6 94.6 94.6 94.6 Pulse 57 56 56 Resp 14 14 14 B/P (MAP) 96/52 96/52 (67) 94/46 (62) Pulse Ox 97 100 100 100 O2 Delivery Ventilator Ventilator Ventilator Ventilator 12/08/20 12/08/20 12/08/20 12/08/20 11:00 11:00 11:30 11:56 Temp 94.6 94.6 94.3 94.6 94.3 Pulse 54 54 58 Resp 14 14 14 B/P (MAP) 94/48 (63) 94/48 94/48 (63) Pulse Ox 100 100 100 100 O2 Delivery Ventilator Ventilator Ventilator Ventilator 12/08/20 12/08/20 12/08/20 12/08/20 12:00 12:00 12:00 12:00 Temp 94.6 94.6 94.6 Pulse 62 62 65 Resp 14 14 B/P (MAP) 92/48 92/48 (63) Pulse Ox 100 100 O2 Delivery Mechanical Ventilator Ventilator Ventilator 12/08/20 12/08/20 12/08/20 12/08/20 12:30 13:00 13:00 13:30 Temp 95.0 96.0 95.4 95.7 95.0 95.4 95.7 Pulse 66 62 66 64 Resp 14 14 14 14 B/P (MAP) 92/46 (61) 92/48 92/44 (60) 92/44 (60) Pulse Ox 100 100 100 100 O2 Delivery Ventilator Ventilator Ventilator Ventilator 12/08/20 12/08/20 12/08/20 12/08/20 14:00 14:00 14:04 14:30 Temp 95.7 96.6 96.0 95.7 96.0 Pulse 66 62 68 Resp 14 14 14 B/P (MAP) 88/42 (57) 92/48 84/42 (56) Pulse Ox 100 100 100 100 O2 Delivery Ventilator Ventilator Ventilator Ventilator 12/08/20 12/08/20 12/08/20 12/08/20 15:00 15:00 15:30 15:30 Temp 96.4 96.4 96.4 96.4 96.4 96.4 Pulse 76 66 72 72 Resp 14 14 14 14 B/P (MAP) 76/42 75/43 (54) 92/56 120/68 (85) Pulse Ox 100 100 100 100 O2 Delivery Ventilator Ventilator Ventilator Ventilator 12/08/20 12/08/20 12/08/20 12/08/20 15:45 16:00 16:00 16:00 Temp 97.6 97.6 Pulse 72 72 65 Resp 14 B/P (MAP) 106/64 (78) 92/56 (68) Pulse Ox 100 O2 Delivery Ventilator Mechanical Ventilator 12/08/20 12/08/20 12/08/20 12/08/20 16:00 16:14 16:15 16:26 Temp 96.5 Pulse 72 70 Resp 14 B/P (MAP) 92/56 94/56 (69) Pulse Ox 100 100 100 O2 Delivery Ventilator Ventilator Ventilator 12/08/20 12/08/20 12/08/20 12/08/20 16:30 16:30 16:56 17:00 Temp 97.8 97.8 98.2 97.8 98.2 Pulse 70 70 68 Resp 14 14 14 B/P (MAP) 92/54 (67) 94/56 92/54 (67) Pulse Ox 100 100 100 100 O2 Delivery Ventilator Ventilator Ventilator Ventilator O2 Flow Rate 35.0 12/08/20 12/08/20 12/08/20 12/08/20 17:00 17:30 18:00 18:01 Temp 97.8 98.2 98.2 98.2 Pulse 72 68 72 Resp 14 14 14 B/P (MAP) 90/54 96/54 (68) 98/58 Pulse Ox 100 100 100 100 O2 Delivery Ventilator Ventilator Ventilator Ventilator 12/08/20 12/08/20 12/08/20 12/08/20 18:55 19:00 19:00 19:30 Temp 98.4 98.4 98.2 98.4 98.4 Pulse 68 70 72 72 Resp 14 14 14 B/P (MAP) 116/74 (88) 120/72 (88) 117/72 Pulse Ox 100 100 99 O2 Delivery Ventilator Ventilator Ventilator 12/08/20 12/08/20 12/08/20 12/08/20 19:30 20:00 20:36 21:00 Temp 97.8 97.8 97.8 97.8 Pulse 70 72 Resp 14 14 B/P (MAP) 118/72 (87) 124/78 (93) Pulse Ox 99 100 97 O2 Delivery Mechanical Ventilator Ventilator Ventilator Ventilator 12/08/20 12/08/20 12/08/20 12/08/20 22:00 22:00 23:00 23:30 Temp 98.2 98.2 98.2 98.2 98.2 98.2 Pulse 66 64 66 Resp 14 14 14 B/P (MAP) 136/80 (98) 132/78 (96) 146/84 (104) Pulse Ox 100 99 99 100 O2 Delivery Ventilator Ventilator Ventilator Ventilator 4/1612/09/20 12/09/20 12/09/20 00:00 00:00 00:00 00:03 Temp 98.2 Pulse 62 66 Resp 14 B/P (MAP) 118/72 (87) 146/84 (104) Pulse Ox 100 O2 Delivery Ventilator Mechanical Ventilator 12/09/20 12/09/20 12/09/20 12/09/20 00:15 01:00 02:00 02:51 Pulse 60 60 Resp 14 14 B/P (MAP) 124/74 (91) 131/79 (96) Pulse Ox 100 99 99 100 O2 Delivery Ventilator Ventilator Ventilator Ventilator 12/09/20 12/09/20 12/09/20 12/09/20 03:00 04:00 04:00 04:00 Temp 98.4 98.4 98.4 Pulse 72 55 57 56 Resp 14 14 14 B/P (MAP) 132/80 (97) 127/76 124/75 (91) 125/75 (92) Pulse Ox 100 100 100 O2 Delivery Ventilator Ventilator Ventilator 12/09/20 12/09/20 12/09/20 12/09/20 04:00 04:17 04:47 05:00 Pulse 60 Resp 14 B/P (MAP) 132/80 (97) Pulse Ox 100 100 100 O2 Delivery Mechanical Ventilator Ventilator O2 Flow Rate 35.0 35.0 12/09/20 12/09/20 12/09/20 12/09/20 05:32 06:00 07:00 08:26 Temp 98.4 98.4 Pulse 60 61 Resp 14 14 B/P (MAP) 133/69 (90) 113/72 (86) Pulse Ox 100 100 100 100 O2 Delivery Ventilator Ventilator Ventilator Ventilator Intake and Output 12/08/20 12/08/20 12/09/20 15:00 23:00 07:00 Intake Total 1200 ml 2659.56 ml 1645 ml Output Total 160 ml 295 ml 600 ml Balance 1040 ml 2364.56 ml 1045 ml Nutrition Consultation Dietary Evaluation: Recommendations by RD: Dietary education by RD, PPN/TPN Comments: If TF are appropriate REC Vital HP @ goal rate 35ml/hr with 100 q4 flushes If TF can not be initiated REC TPN: 195g dextrose and 70g AA Expected Outcomes/Goals: Initiate nutrition support when pt is stable Interpretation of weight loss: >10% in 6 months Malnutrition Findings: Food and Nutrition Intake (Sev: <50% est energy req 5days Weight Status: Appropriate Justicifation of Admission Dx: Justifications for Admission: Justification of Admission Dx: Yes CHF: Sev. Electrolyte Abnormal MYA CASTELLON MD Dec 09, 2020 09:44
--- NOTE | 2020-12-09 09:58 | CONS ---
DATE OF CONSULTATION: 12/09/2020 REFERRING PHYSICIAN: Dr. Lopez. REASON FOR CONSULTATION: Leukocytosis, hypotension. 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 History obtained from chart and medical staff. Patient is currently intubated in ICU. Patient has history of GERD, gastroparesis, anxiety, depression, history of Kong's esophagus, esophagitis, history of C. diff, treated with p.o. vancomycin, history of cholecystectomy for stones, severe hepatic steatosis. The patient was noted to have severe hypokalemia and hypomagnesemia, received IV fluids, Reglan and Haldol in ER. While in the ER, the patient was found to be unresponsive by staff. Code blue was initiated. The patient's rhythm revealed Torsades V-Fib, cardiac arrest. She was subsequently intubated. The patient was placed on hypothermia protocol, which she completed around 1800 yesterday. White count on presentation was 15.6, went down to 10.5, yesterday evening, it was 13.8. SARS-COVID was negative. UA showed 5-10 wbc's, small leukocyte esterase, severe hypokalemia is now corrected, creatinine was normal on admission, now up to 1.5 today. The patient also had severe hypocalcemia yesterday with levels going down as 6.7, currently improving, ionized calcium is 0.92. Procalcitonin of 0.13. AST was 67 on admission, lipase of 57. Chest x-ray on admission showed interval placement of right IJ, no pneumothorax. CT head showed no acute intracranial abnormality. Repeat chest x-ray showed stable appearance. I started the patient on cefepime last night due to pyuria pending urine cultures. This morning, the patient remains intubated ,is arousable, opens eyes, appears restless. PAST MEDICAL HISTORY: GERD, depression, anxiety, gastroparesis, hepatic steatosis, hypertriglyceridemia, PCOS, left groin abscess, status post I and D, B12 deficiency, HPV/abnormal Paps, genital herpes/warts, history of UTI, hypokalemia. PAST SURGICAL HISTORY: Cholecystectomy, left groin I and D for abscess, wisdom teeth extraction, right ankle surgery. FAMILY HISTORY: As per HPI. SOCIAL HISTORY: Smokes less than 1 pack per day. Occasional marijuana use. 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 CURRENT MEDICATIONS: Atropine, dexmedetomidine, cefepime, potassium chloride, hydrocortisone, norepinephrine, dopamine, pantoprazole, heparin, vecuronium, propofol, fentanyl, midazolam, was on calcium gluconate, magnesium sulfate, potassium chloride replacement. PHYSICAL EXAMINATION: VITAL SIGNS: Temperature 98.4, hypothermia resolved, pulse 61, respiratory rate 14, blood pressure 113/72, oxygen saturation 100% on FiO2 of 35%. GENERAL: Intubated, opens eyes to verbal stimuli, somewhat restless. HEENT: Normocephalic, atraumatic. ETT present. OG tube present. NECK: Supple, full range of motion. No lymphadenopathy. LUNGS: Clear. HEART: S1, S2, no murmurs. ABDOMEN: Soft, nontender, nondistended. GENITOURINARY: Hendrickson in place. EXTREMITIES: No edema, no cyanosis. DERMATOLOGIC: Warm, dry. No generalized rash. Multiple tattoos. NEUROLOGIC: Intubated, opens eyes, restless. Moves all 4 extremities. LINES: Right art line looks clean, PIV looks clean. LABORATORY DATA: WBC 16.7, hemoglobin 10.9, hematocrit 33, platelets 240, neutrophil 86%. UA, 5-10 wbc's, leukocyte esterase, small. Sodium 143, potassium 4.3, chloride 110, bicarbonate 20, BUN 4, creatinine 1.5 and glucose 149, calcium 7.2, magnesium 2.6. TSH 0.592. HIV nonreactive. SARS-COVID negative. INR 1.1. Micro urine culture pending at this time. DIAGNOSTICS: Chest x-ray as above. Head CT as above. Chest x-ray this morning shows NG tube and ET tube and right jugular vein are all seen, again unchanged. The pleural and lung margins are clear. The heart size is normal. The pulmonary vessels appear normal. IMPRESSION: 1. Acute hypoxic respiratory failure secondary to cardiac arrest. 2. V-Fib cardiac arrest, status post CPR. 3. Nausea and vomiting prior to admission 4. Severe hypokalemia, hypomagnesemia, hypophosphatemia, hypocalcemia. 5. Mild increased bilirubin level. 6. History of tobacco use. 7. Encephalopathy. 8. Leukocytosis. 9. Pyuria with working diagnosis of UTI history of Kong's esophagus, reflux esophagitis, hepatic steatosis, Clostridium difficile colitis. 10.. History of left groin abscess with MRSA, Peptostreptococcus beta-lactam is negative. RECOMMENDATIONS: 1. Continue cefepime. Monitor urine cultures 2. Follow cultures and lab. 3. Continue supportive care. 4. Maintain lines. 5. Maintain aspiration precaution. 6. Discussed with nursing staff. CCT: 35 minutes. Thank you for allowing me to participate in this patient's care. If you have any questions, do not hesitate to contact me. CARINE MIR MD DR: PASTORA/nts JOB#: [id number] / [id number] JOSE ANTONIO
--- NOTE | 2020-12-09 10:05 | PDOC ---
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 Hopefully she can be extubated today Subjective None Objective Vital Signs Date Time Temp Pulse Resp B/P (MAP) Pulse Ox O2 Delivery O2 Flow Rate FiO2 12/09/20 09:00 66 12/09/20 08:26 100 Ventilator 12/09/20 07:00 98.4 14 98.4 12/09/20 04:47 35.0 Intake and Output 12/09/20 07:00 Intake Total 5504.56 ml Output Total 1055 ml Balance 4449.56 ml Intake IV Total 3330.56 ml Other 2174 ml Output Urine Total 1055 ml PHYSICAL EXAM Alert. Opens eyes, follows a few commands PERRL. EOMI. CN: no focal findings. Muscle tone: normal. Muscle strength: Moves all extremities DTR: 1+ Plantar reflex: Silent Gait: not examined in bed. Sensory exam: no abnormal findings. No cerebellar signs elicited. Review of Relevant I have reviewed the following items josué (where applicable) has been applied. Labs Laboratory Tests Test 12/07/20 10:40 12/07/20 13:15 12/07/20 15:08 12/07/20 16:16 White Blood Count 26.6 x10^3/uL (4.0-11.0) Red Blood Count 4.06 x10^6/uL (3.50-5.40) Hemoglobin 13.1 g/dL (12.0-15.5) Hematocrit 39.5 % (36.0-47.0) Mean Corpuscular Volume 97 fL (79-100) Mean Corpuscular Hemoglobin 32 pg (25-35) Mean Corpuscular Hemoglobin Concent 33 g/dL (31-37) Red Cell Distribution Width 19.2 % (11.5-14.5) Platelet Count 264 x10^3/uL (140-400) Neutrophils (%) (Auto) 85 % (31-73) Lymphocytes (%) (Auto) 6 % (24-48) Monocytes (%) (Auto) 9 % (0-9) Eosinophils (%) (Auto) 0 % (0-3) Basophils (%) (Auto) 0 % (0-3) Neutrophils # (Auto) 22.6 x10^3/uL (1.8-7.7) Lymphocytes # (Auto) 1.6 x10^3/uL (1.0-4.8) Monocytes # (Auto) 2.3 x10^3/uL (0.0-1.1) Eosinophils # (Auto) 0.0 x10^3/uL (0.0-0.7) Basophils # (Auto) 0.0 x10^3/uL (0.0-0.2) Segmented Neutrophils % 87 % (35-66) Band Neutrophils % 4 % (0-9) Lymphocytes % 7 % (24-48) Monocytes % 2 % (0-10) Platelet Estimate Adequate (ADEQUATE) Anisocytosis Present Prothrombin Time 14.3 SEC (11.7-14.0) Prothromb Time International Ratio 1.2 (0.8-1.1) Activated Partial Thromboplast Time 25 SEC (24-38) Sodium Level 139 mmol/L (136-145) Potassium Level 3.0 mmol/L (3.5-5.1) Chloride Level 103 mmol/L (98-107) Carbon Dioxide Level 27 mmol/L (21-32) Anion Gap 9 (6-14) Blood Urea Nitrogen 4 mg/dL (7-20) Creatinine 0.7 mg/dL (0.6-1.0) Estimated GFR (Cockcroft-Gault) 94.7 Glucose Level 145 mg/dL (70-99) Calcium Level 7.5 mg/dL (8.5-10.1) Phosphorus Level 2.2 mg/dL (2.6-4.7) Magnesium Level 3.9 mg/dL (1.8-2.4) Glucose (Fingerstick) 122 mg/dL (70-99) 124 mg/dL (70-99) 131 mg/dL (70-99) Test 12/07/20 17:00 12/07/20 21:09 12/07/20 22:53 12/08/20 04:13 White Blood Count 22.4 x10^3/uL (4.0-11.0) 15.6 x10^3/uL (4.0-11.0) Red Blood Count 4.02 x10^6/uL (3.50-5.40) 3.65 x10^6/uL (3.50-5.40) Hemoglobin 13.2 g/dL (12.0-15.5) 12.0 g/dL (12.0-15.5) Hematocrit 38.9 % (36.0-47.0) 35.3 % (36.0-47.0) Mean Corpuscular Volume 97 fL (79-100) 97 fL (79-100) Mean Corpuscular Hemoglobin 33 pg (25-35) 33 pg (25-35) Mean Corpuscular Hemoglobin Concent 34 g/dL (31-37) 34 g/dL (31-37) Red Cell Distribution Width 18.9 % (11.5-14.5) 18.8 % (11.5-14.5) Platelet Count 260 x10^3/uL (140-400) 226 x10^3/uL (140-400) Neutrophils (%) (Auto) 79 % (31-73) 70 % (31-73) Lymphocytes (%) (Auto) 11 % (24-48) 21 % (24-48) Monocytes (%) (Auto) 9 % (0-9) 9 % (0-9) Eosinophils (%) (Auto) 0 % (0-3) 0 % (0-3) Basophils (%) (Auto) 1 % (0-3) 0 % (0-3) Neutrophils # (Auto) 17.6 x10^3/uL (1.8-7.7) 10.8 x10^3/uL (1.8-7.7) Lymphocytes # (Auto) 2.5 x10^3/uL (1.0-4.8) 3.2 x10^3/uL (1.0-4.8) Monocytes # (Auto) 2.1 x10^3/uL (0.0-1.1) 1.4 x10^3/uL (0.0-1.1) Eosinophils # (Auto) 0.0 x10^3/uL (0.0-0.7) 0.0 x10^3/uL (0.0-0.7) Basophils # (Auto) 0.1 x10^3/uL (0.0-0.2) 0.1 x10^3/uL (0.0-0.2) Segmented Neutrophils % 84 % (35-66) Lymphocytes % 9 % (24-48) Monocytes % 7 % (0-10) Platelet Estimate Adequate (ADEQUATE) Anisocytosis Slight Prothrombin Time 13.9 SEC (11.7-14.0) 14.3 SEC (11.7-14.0) Prothromb Time International Ratio 1.1 (0.8-1.1) 1.2 (0.8-1.1) Activated Partial Thromboplast Time 30 SEC (24-38) 43 SEC (24-38) Sodium Level 142 mmol/L (136-145) 144 mmol/L (136-145) Potassium Level 3.6 mmol/L (3.5-5.1) 2.7 mmol/L (3.5-5.1) Chloride Level 106 mmol/L (98-107) 108 mmol/L (98-107) Carbon Dioxide Level 25 mmol/L (21-32) 26 mmol/L (21-32) Anion Gap 11 (6-14) 10 (6-14) Blood Urea Nitrogen 4 mg/dL (7-20) 4 mg/dL (7-20) Creatinine 0.8 mg/dL (0.6-1.0) 0.7 mg/dL (0.6-1.0) Estimated GFR (Cockcroft-Gault) 81.2 94.7 Glucose Level 113 mg/dL (70-99) 99 mg/dL (70-99) Calcium Level 6.9 mg/dL (8.5-10.1) 6.9 mg/dL (8.5-10.1) Phosphorus Level 5.7 mg/dL (2.6-4.7) 3.5 mg/dL (2.6-4.7) Magnesium Level 3.3 mg/dL (1.8-2.4) 3.0 mg/dL (1.8-2.4) Glucose (Fingerstick) 112 mg/dL (70-99) 83 mg/dL (70-99) Test 12/08/20 05:20 12/08/20 07:22 12/08/20 07:50 12/08/20 08:30 White Blood Count 12.5 x10^3/uL (4.0-11.0) Red Blood Count 3.74 x10^6/uL (3.50-5.40) Hemoglobin 12.2 g/dL (12.0-15.5) Hematocrit 36.6 % (36.0-47.0) Mean Corpuscular Volume 98 fL (79-100) Mean Corpuscular Hemoglobin 33 pg (25-35) Mean Corpuscular Hemoglobin Concent 33 g/dL (31-37) Red Cell Distribution Width 18.9 % (11.5-14.5) Platelet Count 208 x10^3/uL (140-400) Neutrophils (%) (Auto) 67 % (31-73) Lymphocytes (%) (Auto) 20 % (24-48) Monocytes (%) (Auto) 12 % (0-9) Eosinophils (%) (Auto) 0 % (0-3) Basophils (%) (Auto) 0 % (0-3) Neutrophils # (Auto) 8.4 x10^3/uL (1.8-7.7) Lymphocytes # (Auto) 2.5 x10^3/uL (1.0-4.8) Monocytes # (Auto) 1.5 x10^3/uL (0.0-1.1) Eosinophils # (Auto) 0.1 x10^3/uL (0.0-0.7) Basophils # (Auto) 0.0 x10^3/uL (0.0-0.2) Prothrombin Time 13.3 SEC (11.7-14.0) Prothromb Time International Ratio 1.1 (0.8-1.1) Activated Partial Thromboplast Time 42 SEC (24-38) Sodium Level 144 mmol/L (136-145) Potassium Level 3.1 mmol/L (3.5-5.1) 2.8 mmol/L (3.5-5.1) Chloride Level 110 mmol/L (98-107) Carbon Dioxide Level 24 mmol/L (21-32) Anion Gap 10 (6-14) Blood Urea Nitrogen 5 mg/dL (7-20) Creatinine 1.0 mg/dL (0.6-1.0) Estimated GFR (Cockcroft-Gault) 62.7 Glucose Level 92 mg/dL (70-99) Calcium Level 6.7 mg/dL (8.5-10.1) Phosphorus Level 3.5 mg/dL (2.6-4.7) Magnesium Level 2.7 mg/dL (1.8-2.4) Cortisol AM Sample 8.6 ug/dL (4.3-22.4) Glucose (Fingerstick) 88 mg/dL (70-99) O2 Saturation 99 % (92-99) Arterial Blood pH 7.36 (7.35-7.45) Arterial Blood pH (Temp corrected) 7.40 Arterial Blood pCO2 at Patient Temp 40 mmHg (35-46) Arterial Blood pCO2 (Temp correct) 35 mmHg Arterial Blood pO2 at Patient Temp 148 mmHg (85-108) Arterial Blood pO2 (Temp corrected) 130 mmHg Arterial Blood HCO3 22 mmol/L (21-28) Arterial Blood Base Excess -3 mmol/L (-3-3) FiO2 35/vent SARS-CoV-2 RNA (RICK) Negative (Negative) Test 12/08/20 08:35 12/08/20 09:00 12/08/20 09:48 12/08/20 10:52 Glucose (Fingerstick) 79 mg/dL (70-99) 51 mg/dL (70-99) 183 mg/dL (70-99) SARS-CoV-2 Antigen (Rapid) Negative (NEGATIVE) Test 12/08/20 11:41 12/08/20 12:00 12/08/20 12:30 12/08/20 12:53 Glucose (Fingerstick) 123 mg/dL (70-99) 86 mg/dL (70-99) Procalcitonin 0.13 ng/mL (0.00-0.10) Free Thyroxine 1.00 ng/dL (0.76-1.46) HIV (1&2) Antibody Screen Nonreactive (Nonreactive) White Blood Count 10.5 x10^3/uL (4.0-11.0) Red Blood Count 3.31 x10^6/uL (3.50-5.40) Hemoglobin 10.7 g/dL (12.0-15.5) Hematocrit 32.1 % (36.0-47.0) Mean Corpuscular Volume 97 fL (79-100) Mean Corpuscular Hemoglobin 33 pg (25-35) Mean Corpuscular Hemoglobin Concent 34 g/dL (31-37) Red Cell Distribution Width 18.5 % (11.5-14.5) Platelet Count 196 x10^3/uL (140-400) Neutrophils (%) (Auto) 65 % (31-73) Lymphocytes (%) (Auto) 22 % (24-48) Monocytes (%) (Auto) 11 % (0-9) Eosinophils (%) (Auto) 1 % (0-3) Basophils (%) (Auto) 0 % (0-3) Neutrophils # (Auto) 6.8 x10^3/uL (1.8-7.7) Lymphocytes # (Auto) 2.3 x10^3/uL (1.0-4.8) Monocytes # (Auto) 1.2 x10^3/uL (0.0-1.1) Eosinophils # (Auto) 0.1 x10^3/uL (0.0-0.7) Basophils # (Auto) 0.0 x10^3/uL (0.0-0.2) Prothrombin Time 13.8 SEC (11.7-14.0) Prothromb Time International Ratio 1.1 (0.8-1.1) Sodium Level 148 mmol/L (136-145) Potassium Level 2.2 mmol/L (3.5-5.1) Chloride Level 112 mmol/L (98-107) Carbon Dioxide Level 24 mmol/L (21-32) Anion Gap 12 (6-14) Blood Urea Nitrogen 5 mg/dL (7-20) Creatinine 1.2 mg/dL (0.6-1.0) Estimated GFR (Cockcroft-Gault) 50.8 Glucose Level 80 mg/dL (70-99) Calcium Level 6.7 mg/dL (8.5-10.1) Ionized Calcium 0.99 mmol/L (1.13-1.32) Phosphorus Level 2.7 mg/dL (2.6-4.7) Magnesium Level 2.5 mg/dL (1.8-2.4) Test 12/08/20 13:27 12/08/20 13:48 12/08/20 15:29 12/08/20 17:04 Cortisol PM Sample 2.0 ug/dL (3.1-16.7) Glucose (Fingerstick) 88 mg/dL (70-99) 80 mg/dL (70-99) 117 mg/dL (70-99) Test 12/08/20 17:29 12/08/20 22:30 12/09/20 05:15 12/09/20 08:00 White Blood Count 13.8 x10^3/uL (4.0-11.0) 16.7 x10^3/uL (4.0-11.0) Red Blood Count 3.37 x10^6/uL (3.50-5.40) 3.36 x10^6/uL (3.50-5.40) Hemoglobin 10.9 g/dL (12.0-15.5) 10.9 g/dL (12.0-15.5) Hematocrit 33.0 % (36.0-47.0) 33.0 % (36.0-47.0) Mean Corpuscular Volume 98 fL (79-100) 98 fL (79-100) Mean Corpuscular Hemoglobin 32 pg (25-35) 33 pg (25-35) Mean Corpuscular Hemoglobin Concent 33 g/dL (31-37) 33 g/dL (31-37) Red Cell Distribution Width 19.2 % (11.5-14.5) 19.1 % (11.5-14.5) Platelet Count 231 x10^3/uL (140-400) 240 x10^3/uL (140-400) Neutrophils (%) (Auto) 70 % (31-73) 86 % (31-73) Lymphocytes (%) (Auto) 19 % (24-48) 9 % (24-48) Monocytes (%) (Auto) 9 % (0-9) 5 % (0-9) Eosinophils (%) (Auto) 1 % (0-3) 0 % (0-3) Basophils (%) (Auto) 1 % (0-3) 0 % (0-3) Neutrophils # (Auto) 9.7 x10^3/uL (1.8-7.7) 14.3 x10^3/uL (1.8-7.7) Lymphocytes # (Auto) 2.6 x10^3/uL (1.0-4.8) 1.4 x10^3/uL (1.0-4.8) Monocytes # (Auto) 1.3 x10^3/uL (0.0-1.1) 0.9 x10^3/uL (0.0-1.1) Eosinophils # (Auto) 0.1 x10^3/uL (0.0-0.7) 0.0 x10^3/uL (0.0-0.7) Basophils # (Auto) 0.1 x10^3/uL (0.0-0.2) 0.0 x10^3/uL (0.0-0.2) Prothrombin Time 13.6 SEC (11.7-14.0) Prothromb Time International Ratio 1.1 (0.8-1.1) Sodium Level 145 mmol/L (136-145) 141 mmol/L (136-145) 143 mmol/L (136-145) Potassium Level 2.5 mmol/L (3.5-5.1) 3.7 mmol/L (3.5-5.1) 4.3 mmol/L (3.5-5.1) Chloride Level 110 mmol/L (98-107) 110 mmol/L (98-107) 110 mmol/L (98-107) Carbon Dioxide Level 21 mmol/L (21-32) 21 mmol/L (21-32) 20 mmol/L (21-32) Anion Gap 14 (6-14) 10 (6-14) 13 (6-14) Blood Urea Nitrogen 5 mg/dL (7-20) 5 mg/dL (7-20) 4 mg/dL (7-20) Creatinine 1.2 mg/dL (0.6-1.0) 1.4 mg/dL (0.6-1.0) 1.5 mg/dL (0.6-1.0) Estimated GFR (Cockcroft-Gault) 50.8 42.5 39.3 Glucose Level 122 mg/dL (70-99) 186 mg/dL (70-99) 149 mg/dL (70-99) Calcium Level 6.4 mg/dL (8.5-10.1) 6.8 mg/dL (8.5-10.1) 7.2 mg/dL (8.5-10.1) Ionized Calcium 0.90 mmol/L (1.13-1.32) Phosphorus Level 4.0 mg/dL (2.6-4.7) Magnesium Level 2.1 mg/dL (1.8-2.4) 2.6 mg/dL (1.8-2.4) Thyroid Stimulating Hormone (TSH) 0.592 uIU/mL (0.358-3.74) O2 Saturation 99 % (92-99) Arterial Blood pH 7.35 (7.35-7.45) Arterial Blood pCO2 at Patient Temp 36 mmHg (35-46) Arterial Blood pO2 at Patient Temp 146 mmHg (85-108) Arterial Blood HCO3 20 mmol/L (21-28) Arterial Blood Base Excess -5 mmol/L (-3-3) FiO2 35% vent Test 12/09/20 08:39 Glucose (Fingerstick) 112 mg/dL (70-99) Laboratory Tests Test 12/08/20 10:52 12/08/20 11:41 12/08/20 12:00 12/08/20 12:30 Glucose (Fingerstick) 183 mg/dL (70-99) 123 mg/dL (70-99) Procalcitonin 0.13 ng/mL (0.00-0.10) Free Thyroxine 1.00 ng/dL (0.76-1.46) HIV (1&2) Antibody Screen Nonreactive (Nonreactive) White Blood Count 10.5 x10^3/uL (4.0-11.0) Red Blood Count 3.31 x10^6/uL (3.50-5.40) Hemoglobin 10.7 g/dL (12.0-15.5) Hematocrit 32.1 % (36.0-47.0) Mean Corpuscular Volume 97 fL (79-100) Mean Corpuscular Hemoglobin 33 pg (25-35) Mean Corpuscular Hemoglobin Concent 34 g/dL (31-37) Red Cell Distribution Width 18.5 % (11.5-14.5) Platelet Count 196 x10^3/uL (140-400) Neutrophils (%) (Auto) 65 % (31-73) Lymphocytes (%) (Auto) 22 % (24-48) Monocytes (%) (Auto) 11 % (0-9) Eosinophils (%) (Auto) 1 % (0-3) Basophils (%) (Auto) 0 % (0-3) Neutrophils # (Auto) 6.8 x10^3/uL (1.8-7.7) Lymphocytes # (Auto) 2.3 x10^3/uL (1.0-4.8) Monocytes # (Auto) 1.2 x10^3/uL (0.0-1.1) Eosinophils # (Auto) 0.1 x10^3/uL (0.0-0.7) Basophils # (Auto) 0.0 x10^3/uL (0.0-0.2) Prothrombin Time 13.8 SEC (11.7-14.0) Prothromb Time International Ratio 1.1 (0.8-1.1) Sodium Level 148 mmol/L (136-145) Potassium Level 2.2 mmol/L (3.5-5.1) Chloride Level 112 mmol/L (98-107) Carbon Dioxide Level 24 mmol/L (21-32) Anion Gap 12 (6-14) Blood Urea Nitrogen 5 mg/dL (7-20) Creatinine 1.2 mg/dL (0.6-1.0) Estimated GFR (Cockcroft-Gault) 50.8 Glucose Level 80 mg/dL (70-99) Calcium Level 6.7 mg/dL (8.5-10.1) Ionized Calcium 0.99 mmol/L (1.13-1.32) Phosphorus Level 2.7 mg/dL (2.6-4.7) Magnesium Level 2.5 mg/dL (1.8-2.4) Test 12/08/20 12:53 12/08/20 13:27 12/08/20 13:48 12/08/20 15:29 Glucose (Fingerstick) 86 mg/dL (70-99) 88 mg/dL (70-99) 80 mg/dL (70-99) Cortisol PM Sample 2.0 ug/dL (3.1-16.7) Test 12/08/20 17:04 12/08/20 17:29 12/08/20 22:30 12/09/20 05:15 Glucose (Fingerstick) 117 mg/dL (70-99) White Blood Count 13.8 x10^3/uL (4.0-11.0) 16.7 x10^3/uL (4.0-11.0) Red Blood Count 3.37 x10^6/uL (3.50-5.40) 3.36 x10^6/uL (3.50-5.40) Hemoglobin 10.9 g/dL (12.0-15.5) 10.9 g/dL (12.0-15.5) Hematocrit 33.0 % (36.0-47.0) 33.0 % (36.0-47.0) Mean Corpuscular Volume 98 fL (79-100) 98 fL (79-100) Mean Corpuscular Hemoglobin 32 pg (25-35) 33 pg (25-35) Mean Corpuscular Hemoglobin Concent 33 g/dL (31-37) 33 g/dL (31-37) Red Cell Distribution Width 19.2 % (11.5-14.5) 19.1 % (11.5-14.5) Platelet Count 231 x10^3/uL (140-400) 240 x10^3/uL (140-400) Neutrophils (%) (Auto) 70 % (31-73) 86 % (31-73) Lymphocytes (%) (Auto) 19 % (24-48) 9 % (24-48) Monocytes (%) (Auto) 9 % (0-9) 5 % (0-9) Eosinophils (%) (Auto) 1 % (0-3) 0 % (0-3) Basophils (%) (Auto) 1 % (0-3) 0 % (0-3) Neutrophils # (Auto) 9.7 x10^3/uL (1.8-7.7) 14.3 x10^3/uL (1.8-7.7) Lymphocytes # (Auto) 2.6 x10^3/uL (1.0-4.8) 1.4 x10^3/uL (1.0-4.8) Monocytes # (Auto) 1.3 x10^3/uL (0.0-1.1) 0.9 x10^3/uL (0.0-1.1) Eosinophils # (Auto) 0.1 x10^3/uL (0.0-0.7) 0.0 x10^3/uL (0.0-0.7) Basophils # (Auto) 0.1 x10^3/uL (0.0-0.2) 0.0 x10^3/uL (0.0-0.2) Prothrombin Time 13.6 SEC (11.7-14.0) Prothromb Time International Ratio 1.1 (0.8-1.1) Sodium Level 145 mmol/L (136-145) 141 mmol/L (136-145) 143 mmol/L (136-145) Potassium Level 2.5 mmol/L (3.5-5.1) 3.7 mmol/L (3.5-5.1) 4.3 mmol/L (3.5-5.1) Chloride Level 110 mmol/L (98-107) 110 mmol/L (98-107) 110 mmol/L (98-107) Carbon Dioxide Level 21 mmol/L (21-32) 21 mmol/L (21-32) 20 mmol/L (21-32) Anion Gap 14 (6-14) 10 (6-14) 13 (6-14) Blood Urea Nitrogen 5 mg/dL (7-20) 5 mg/dL (7-20) 4 mg/dL (7-20) Creatinine 1.2 mg/dL (0.6-1.0) 1.4 mg/dL (0.6-1.0) 1.5 mg/dL (0.6-1.0) Estimated GFR (Cockcroft-Gault) 50.8 42.5 39.3 Glucose Level 122 mg/dL (70-99) 186 mg/dL (70-99) 149 mg/dL (70-99) Calcium Level 6.4 mg/dL (8.5-10.1) 6.8 mg/dL (8.5-10.1) 7.2 mg/dL (8.5-10.1) Ionized Calcium 0.90 mmol/L (1.13-1.32) Phosphorus Level 4.0 mg/dL (2.6-4.7) Magnesium Level 2.1 mg/dL (1.8-2.4) 2.6 mg/dL (1.8-2.4) Thyroid Stimulating Hormone (TSH) 0.592 uIU/mL (0.358-3.74) Test 4/16/21 08:00 12/09/20 08:39 O2 Saturation 99 % (92-99) Arterial Blood pH 7.35 (7.35-7.45) Arterial Blood pCO2 at Patient Temp 36 mmHg (35-46) Arterial Blood pO2 at Patient Temp 146 mmHg (85-108) Arterial Blood HCO3 20 mmol/L (21-28) Arterial Blood Base Excess -5 mmol/L (-3-3) FiO2 35% vent Glucose (Fingerstick) 112 mg/dL (70-99) Microbiology 12/07/20 Urine Culture - Final, Complete Medications Current Medications Ringer's Solution 500 ml @ 500 mls/hr 1X ONCE IV ; Start 12/07/20 at 05:00; Stop 12/07/20 at 05:59; Status DC Ringer's Solution 500 ml @ 500 mls/hr 1X ONCE IV ; Start 12/07/20 at 05:00; Stop 12/07/20 at 05:59; Status DC Metoclopramide HCl (Reglan Vial) 10 mg 1X ONCE IVP ; Start 12/07/20 at 05:30; Stop 12/07/20 at 05:05; Status DC Ringer's Solution 500 ml @ 500 mls/hr 1X ONCE IV ; Start 12/07/20 at 05:30; Stop 12/07/20 at 06:29; Status DC Haloperidol Lactate (Haldol Inj) 5 mg STK-MED ONCE .ROUTE ; Start 12/07/20 at 05:05; Stop 12/07/20 at 05:05; Status DC Haloperidol Lactate (Haldol Inj) 5 mg 1X ONCE IVP Last administered on 12/07/20at 05:14; Start 12/07/20 at 05:30; Stop 12/07/20 at 05:31; Status DC Diphenhydramine HCl (Benadryl) 50 mg 1X ONCE IVP Last administered on 12/07/20at 05:14; Start 12/07/20 at 05:30; Stop 12/07/20 at 05:31; Status DC Ringer's Solution 500 ml @ 1,000 mls/hr 1X ONCE IV Last administered on 12/07/20at 05:13; Start 12/07/20 at 05:30; Stop 12/07/20 at 05:59; Status DC Propofol 100 ml @ As Directed STK-MED ONCE IV ; Start 12/07/20 at 05:56; Stop 12/07/20 at 05:56; Status DC Potassium Chloride/Sodium Chloride 1,000 ml @ 125 mls/hr Q8H IV Last administered on 12/07/20at 06:30; Start 12/07/20 at 06:30; Stop 12/07/20 at 14:29; Status DC Midazolam HCl (Versed) 5 mg STK-MED ONCE .ROUTE ; Start 12/07/20 at 06:29; Stop 12/07/20 at 06:30; Status DC Fentanyl Citrate 30 ml @ 0 mls/hr CONT PRN IV SEE PROTOCOL; Start 12/07/20 at 07:00; Status Cancel Chlorhexidine Gluconate (Peridex) 15 ml BID MM Last administered on 12/07/20at 09:00; Start 12/07/20 at 09:00; Stop 12/07/20 at 18:44; Status DC Midazolam HCl 100 ml @ 0 mls/hr CONT PRN IV SEE PROTOCOL Last administered on 12/07/20at 20:29; Start 12/07/20 at 07:00 Magnesium Sulfate 100 ml @ 25 mls/hr 1X ONCE IV Last administered on 12/07/20at 08:47; Start 12/07/20 at 07:30; Stop 12/07/20 at 11:29; Status DC Famotidine (Pepcid Vial) 20 mg BID IVP ; Start 12/07/20 at 09:00; Stop 12/07/20 at 10:56; Status DC Buspirone HCl (Buspar) 30 mg Q8H NG Last administered on 12/08/20at 16:18; Start 12/07/20 at 08:00; Stop 12/08/20 at 21:06; Status DC Acetaminophen (Tylenol) 650 mg Q4H NG Last administered on 12/08/20at 16:22; Start 12/07/20 at 08:00; Stop 12/08/20 at 22:07; Status DC Glycerin/ Hypromellose/ Polyethylene (Artificial Tears) 1 drop Q6HRS OU Last administered on 12/07/20at 17:25; Start 12/07/20 at 12:00; Stop 12/07/20 at 18:44; Status DC Glycerin/ Hypromellose/ Polyethylene (Artificial Tears) 1 drop PRN Q15MIN PRN OU DRY EYE; Start 12/07/20 at 08:00 Heparin Sodium (Porcine) (Heparin Sodium) 5,000 unit BID SQ Last administered on 12/09/20at 08:30; Start 12/07/20 at 09:00 Pantoprazole Sodium (PROTONIX VIAL for IV PUSH) 40 mg DAILY IVP Last administered on 12/09/20at 08:29; Start 12/07/20 at 09:00 Fentanyl Citrate 30 ml @ 0 mls/hr CONT PRN IV PER PROTOCOL. Last administered on 12/09/20at 04:17; Start 12/07/20 at 08:00 Propofol 100 ml @ 0 mls/hr CONT PRN IV PER PROTOCOL. Last administered on 12/09/20at 04:08; Start 12/07/20 at 08:00 Midazolam HCl 100 ml @ 0 mls/hr CONT PRN IV PER PROTOCOL; Start 12/07/20 at 08:00; Status UNV Vecuronium [place] (Norcuron Bolus) 6 mg PRN Q1HR PRN IV SHIVERING Last administered on 12/07/20at 08:47; Start 12/07/20 at 08:00 Potassium Chloride/Water 100 ml @ 100 mls/hr Q1H IV Last administered on 12/07/20at 10:49; Start 12/07/20 at 09:00; Stop 12/07/20 at 12:59; Status DC Potassium Chloride/Water 100 ml @ 100 mls/hr Q1H IV ; Start 12/07/20 at 12:00; Stop 12/07/20 at 14:59; Status DC Potassium Phosphate 10 mmol/ Sodium Chloride 103.3333 ml @ 51.667 m... Q2H IV Last administered on 12/07/20at 12:00; Start 12/07/20 at 10:00; Stop 12/07/20 at 13:59; Status DC Potassium Phosphate 10 mmol/ Sodium Chloride 103.3333 ml @ 51.667 m... Q2H IV Last administered on 12/07/20at 13:43; Start 12/07/20 at 12:00; Stop 12/07/20 at 15:59; Status DC Sodium Bicarbonate (Sodium Bicarb Adult 8.4% Syr) 50 meq STK-MED ONCE .ROUTE ; Start 12/07/20 at 12:00; Stop 12/07/20 at 15:47; Status DC Amiodarone HCl (Cordarone) 300 mg STK-MED ONCE .ROUTE ; Start 12/07/20 at 12:00; Stop 12/07/20 at 15:47; Status DC Epinephrine HCl (EPINEPHrine SYRINGE) 3 mg STK-MED ONCE .ROUTE ; Start 12/07/20 at 12:00; Stop 12/07/20 at 15:47; Status DC Midazolam HCl (Versed) 5 mg STK-MED ONCE .ROUTE ; Start 12/07/20 at 12:00; Stop 12/07/20 at 15:47; Status DC Magnesium Sulfate/ Dextrose (Magnesium Sulfate PREMIX 1GM) 1 gm STK-MED ONCE IV ; Start 12/07/20 at 12:00; Stop 12/07/20 at 15:47; Status DC Sodium Chloride 1,000 ml @ 50 mls/hr Q20H IV Last administered on 12/08/20at 13:13; Start 12/07/20 at 17:30; Stop 12/08/20 at 13:53; Status DC Potassium Chloride/Water 100 ml @ 100 mls/hr 1X ONCE IV Last administered on 12/07/20at 23:35; Start 12/07/20 at 23:30; Stop 12/08/20 at 00:29; Status DC Dopamine HCl/ Dextrose 250 ml @ 13.481 mls/ hr CONT PRN IV SEE I/O RECORD; Start 12/08/20 at 06:45 Dextrose (Dextrose 50%-Water Syringe) 12.5 gm PRN Q15MIN PRN IV SEE COMMENTS Last administered on 12/08/20at 10:04; Start 12/08/20 at 10:00 Potassium Chloride/Water 100 ml @ 100 mls/hr 1X ONCE IV Last administered on 12/08/20at 14:27; Start 12/08/20 at 13:45; Stop 12/08/20 at 14:44; Status DC Dextrose/Sodium Chloride 1,000 ml @ 75 mls/hr [id number] IV Last administered on 12/08/20at 14:16; Start 12/08/20 at 13:45; Stop 12/08/20 at 18:42; Status DC Norepinephrine Bitartrate 8 mg/ Dextrose 258 ml @ 13.913 mls/ hr CONT PRN IV PER PROTOCOL Last administered on 12/08/20at 15:11; Start 12/08/20 at 15:00 Hydrocortisone Sodium Succinate (Solu-CORTEF) 100 mg Q12HR IVP Last administered on 12/09/20at 08:29; Start 12/08/20 at 15:30 Potassium Chloride/Dextrose/ Sod Cl 1,000 ml @ 125 mls/hr Q8H IV Last administered on 12/09/20at 04:09; Start 12/08/20 at 19:00 Potassium Chloride/Water 100 ml @ 100 mls/hr Q1H IV Last administered on 12/08/20at 20:03; Start 12/08/20 at 19:00; Stop 12/08/20 at 20:59; Status DC Magnesium Sulfate/ Dextrose 100 ml @ 100 mls/hr 1X ONCE IV Last administered on 12/08/20at 18:51; Start 12/08/20 at 19:00; Stop 12/08/20 at 19:59; Status DC Cefepime HCl (Maxipime) 2 gm Q12HR IVP Last administered on 12/09/20at 08:29; Start 12/08/20 at 21:30 Calcium Gluconate 1000 mg/Sodium Chloride 110 ml @ 220 mls/hr 1X ONCE IV Last administered on 12/08/20at 23:40; Start 12/08/20 at 22:30; Stop 12/08/20 at 22:59; Status DC Dexmedetomidine HCl 400 mcg/ Sodium Chloride 100 ml @ 0 mls/hr CONT PRN IV PER PROTOCOL; Start 12/09/20 at 08:45 Sodium Chloride 500 ml @ 500 mls/hr 1X PRN PRN IV SEE COMMENTS; Start 12/09/20 at 08:45 Atropine Sulfate (ATROPINE 0.5mg SYRINGE) 0.5 mg PRN Q5MIN PRN IV SEE COMMENTS; Start 12/09/20 at 08:45 Active Scripts Active Vancomycin Hcl 125 Mg Capsule 1 Cap PO QID 10 Days Potassium Chloride (Potassium Chloride) 20 Meq Tablet.er 20 Meq PO BIDAC 30 Days Reglan (Metoclopramide Hcl) 10 Mg Tablet 10 Mg PO TID PRN Compazine (Prochlorperazine Maleate) 10 Mg Tablet 1 Tab PO Q6HRS Ondansetron Odt (Ondansetron) 4 Mg Tab.rapdis 1 Tab PO PRN Q6-8HRS Amitriptyline Hcl 10 Mg Tablet 1 Tab PO QHS 90 Days Celexa (Citalopram Hydrobromide) 20 Mg Tablet 1 Tab PO QHS Reported Fenofibrate (Fenofibrate,Micronized) 134 Mg Capsule 134 Mg PO DAILY Nexium Capsule (Esomeprazole Magnesium) 40 Mg Capsule.dr 1 Cap PO DAILY Vitals/I & O Vital Sign - Last 24 Hours 12/08/20 12/08/20 12/08/20 12/08/20 10:13 10:30 11:00 11:00 Temp 94.6 94.6 94.6 94.6 94.6 Pulse 56 54 54 Resp 14 14 14 B/P (MAP) 94/46 (62) 94/48 (63) 94/48 Pulse Ox 100 100 100 100 O2 Delivery Ventilator Ventilator Ventilator Ventilator 12/08/20 12/08/20 12/08/20 12/08/20 11:30 11:56 12:00 12:00 Temp 94.3 94.6 94.3 Pulse 58 62 Resp 14 14 B/P (MAP) 94/48 (63) 92/48 Pulse Ox 100 100 100 O2 Delivery Ventilator Ventilator Mechanical Ventilator Ventilator 12/08/20 12/08/20 12/08/20 12/08/20 12:00 12:00 12:30 13:00 Temp 94.6 95.0 96.0 94.6 95.0 Pulse 62 65 66 62 Resp 14 14 14 B/P (MAP) 92/48 (63) 92/46 (61) 92/48 Pulse Ox 100 100 100 O2 Delivery Ventilator Ventilator Ventilator 12/08/20 12/08/20 12/08/20 12/08/20 13:00 13:30 14:00 14:00 Temp 95.4 95.7 95.7 96.6 95.4 95.7 95.7 Pulse 66 64 66 62 Resp 14 14 14 14 B/P (MAP) 92/44 (60) 92/44 (60) 88/42 (57) 92/48 Pulse Ox 100 100 100 100 O2 Delivery Ventilator Ventilator Ventilator Ventilator 12/08/20 12/08/20 12/08/20 12/08/20 14:04 14:30 15:00 15:00 Temp 96.0 96.4 96.4 96.0 96.4 Pulse 68 76 66 Resp 14 14 14 B/P (MAP) 84/42 (56) 76/42 75/43 (54) Pulse Ox 100 100 100 100 O2 Delivery Ventilator Ventilator Ventilator Ventilator 12/08/20 12/08/20 12/08/20 12/08/20 15:30 15:30 15:45 16:00 Temp 96.4 96.4 97.6 96.4 97.6 Pulse 72 72 72 72 Resp 14 14 14 B/P (MAP) 92/56 120/68 (85) 106/64 (78) 92/56 (68) Pulse Ox 100 100 100 O2 Delivery Ventilator Ventilator Ventilator 12/08/20 12/08/20 12/08/20 12/08/20 16:00 16:00 16:00 16:14 Temp 96.5 Pulse 65 72 Resp 14 B/P (MAP) 92/56 Pulse Ox 100 100 O2 Delivery Mechanical Ventilator Ventilator Ventilator 12/08/20 12/08/20 12/08/20 12/08/20 16:15 16:26 16:30 16:30 Temp 97.8 97.8 97.8 Pulse 70 70 70 Resp 14 14 B/P (MAP) 94/56 (69) 92/54 (67) 94/56 Pulse Ox 100 100 100 O2 Delivery Ventilator Ventilator Ventilator 12/08/20 12/08/20 12/08/20 12/08/20 16:56 17:00 17:00 17:30 Temp 98.2 97.8 98.2 98.2 98.2 Pulse 68 72 68 Resp 14 14 14 B/P (MAP) 92/54 (67) 90/54 96/54 (68) Pulse Ox 100 100 100 100 O2 Delivery Ventilator Ventilator Ventilator Ventilator O2 Flow Rate 35.0 12/08/20 12/08/20 12/08/20 12/08/20 18:00 18:01 18:55 19:00 Temp 98.2 98.4 98.4 98.4 98.4 Pulse 72 68 70 Resp 14 14 14 B/P (MAP) 98/58 116/74 (88) 120/72 (88) Pulse Ox 100 100 100 100 O2 Delivery Ventilator Ventilator Ventilator Ventilator 4/15/21 4/15/21 4/15/21 4/15/21 19:00 19:30 19:30 20:00 Temp 98.2 97.8 97.8 Pulse 72 72 70 Resp 14 14 B/P (MAP) 117/72 118/72 (87) Pulse Ox 99 99 O2 Delivery Ventilator Mechanical Ventilator Ventilator 12/08/20 12/08/20 12/08/20 12/08/20 20:36 21:00 22:00 22:00 Temp 97.8 98.2 97.8 98.2 Pulse 72 66 Resp 14 14 B/P (MAP) 124/78 (93) 136/80 (98) Pulse Ox 100 97 100 99 O2 Delivery Ventilator Ventilator Ventilator Ventilator 12/08/20 12/08/20 12/09/20 12/09/20 23:00 23:30 00:00 00:00 Temp 98.2 98.2 98.2 98.2 Pulse 64 66 62 66 Resp 14 14 14 B/P (MAP) 132/78 (96) 146/84 (104) 118/72 (87) 146/84 (104) Pulse Ox 99 100 100 O2 Delivery Ventilator Ventilator Ventilator 12/09/20 12/09/20 12/09/20 12/09/20 00:00 00:03 00:15 01:00 Temp 98.2 Pulse 60 Resp 14 B/P (MAP) 124/74 (91) Pulse Ox 100 99 O2 Delivery Mechanical Ventilator Ventilator Ventilator 12/09/20 12/09/20 12/09/20 12/09/20 02:00 02:51 03:00 04:00 Temp 98.4 Pulse 60 72 55 Resp 14 14 14 B/P (MAP) 131/79 (96) 132/80 (97) 127/76 Pulse Ox 99 100 100 100 O2 Delivery Ventilator Ventilator Ventilator Ventilator 12/09/20 12/09/20 12/09/20 12/09/20 04:00 04:00 04:00 04:17 Temp 98.4 98.4 Pulse 57 56 Resp 14 B/P (MAP) 124/75 (91) 125/75 (92) Pulse Ox 100 100 O2 Delivery Ventilator Mechanical Ventilator O2 Flow Rate 35.0 12/09/20 12/09/20 12/09/20 12/09/20 04:47 05:00 05:32 06:00 Pulse 60 60 Resp 14 14 B/P (MAP) 132/80 (97) 133/69 (90) Pulse Ox 100 100 100 100 O2 Delivery Ventilator Ventilator Ventilator O2 Flow Rate 35.0 12/09/20 12/09/20 12/09/20 07:00 08:26 09:00 Temp 98.4 98.4 Pulse 61 66 Resp 14 B/P (MAP) 113/72 (86) Pulse Ox 100 100 O2 Delivery Ventilator Ventilator Intake and Output 12/08/20 12/08/20 12/09/20 15:00 23:00 07:00 Intake Total 1200 ml 2659.56 ml 1645 ml Output Total 160 ml 295 ml 600 ml Balance 1040 ml 2364.56 ml 1045 ml Justicifation of Admission Dx: Justifications for Admission: Justification of Admission Dx: Yes CHF: Sev. Electrolyte Abnormal HANNAH WEBER MD Dec 09, 2020 10:05
--- NOTE | 2020-12-09 10:09 | NUR ---
At 0855 Sedation stopped. Pt started on Pressure support this AM per Dr. Bustos.. Order per Dr. Bustos to extubate at 0930. Currently on oxygen 3L NC. Hypothermia DC and parts removed per Dr. Bustos. Pt current drowsy and mildly confused on Precedex. VS BP 119/89, P 65, RR 16, SPO2 97 % O2 2L NC. Will cont. to monitor.
--- NOTE | 2020-12-09 10:18 | PDOC ---
REI PERSAUD CASH PERSON 12/09/20 1018: CARDIO Progress Notes Date and Time Date of Service 12/09/20 Time of Evaluation 1015 Subjective Subjective: No Chest Pain, No shortness of breath, No Palpitations Vitals Vitals Vital Signs Date Time Temp Pulse Resp B/P (MAP) Pulse Ox O2 Delivery O2 Flow Rate FiO2 12/09/20 09:00 66 12/09/20 08:26 100 Ventilator 12/09/20 08:00 98.4 14 12/09/20 04:47 35.0 Weight Weight [ ] Input and Output Intake and Output Intake and Output 12/09/20 07:00 Intake Total 5504.56 ml Output Total 1055 ml Balance 4449.56 ml Intake IV Total 3330.56 ml Other 2174 ml Output Urine Total 1055 ml Laboratory Labs Laboratory Tests Test 12/08/20 10:52 12/08/20 11:41 12/08/20 12:00 12/08/20 12:30 Glucose (Fingerstick) 183 mg/dL (70-99) 123 mg/dL (70-99) Procalcitonin 0.13 ng/mL (0.00-0.10) Free Thyroxine 1.00 ng/dL (0.76-1.46) HIV (1&2) Antibody Screen Nonreactive (Nonreactive) White Blood Count 10.5 x10^3/uL (4.0-11.0) Red Blood Count 3.31 x10^6/uL (3.50-5.40) Hemoglobin 10.7 g/dL (12.0-15.5) Hematocrit 32.1 % (36.0-47.0) Mean Corpuscular Volume 97 fL (79-100) Mean Corpuscular Hemoglobin 33 pg (25-35) Mean Corpuscular Hemoglobin Concent 34 g/dL (31-37) Red Cell Distribution Width 18.5 % (11.5-14.5) Platelet Count 196 x10^3/uL (140-400) Neutrophils (%) (Auto) 65 % (31-73) Lymphocytes (%) (Auto) 22 % (24-48) Monocytes (%) (Auto) 11 % (0-9) Eosinophils (%) (Auto) 1 % (0-3) Basophils (%) (Auto) 0 % (0-3) Neutrophils # (Auto) 6.8 x10^3/uL (1.8-7.7) Lymphocytes # (Auto) 2.3 x10^3/uL (1.0-4.8) Monocytes # (Auto) 1.2 x10^3/uL (0.0-1.1) Eosinophils # (Auto) 0.1 x10^3/uL (0.0-0.7) Basophils # (Auto) 0.0 x10^3/uL (0.0-0.2) Prothrombin Time 13.8 SEC (11.7-14.0) Prothromb Time International Ratio 1.1 (0.8-1.1) Sodium Level 148 mmol/L (136-145) Potassium Level 2.2 mmol/L (3.5-5.1) Chloride Level 112 mmol/L (98-107) Carbon Dioxide Level 24 mmol/L (21-32) Anion Gap 12 (6-14) Blood Urea Nitrogen 5 mg/dL (7-20) Creatinine 1.2 mg/dL (0.6-1.0) Estimated GFR (Cockcroft-Gault) 50.8 Glucose Level 80 mg/dL (70-99) Calcium Level 6.7 mg/dL (8.5-10.1) Ionized Calcium 0.99 mmol/L (1.13-1.32) Phosphorus Level 2.7 mg/dL (2.6-4.7) Magnesium Level 2.5 mg/dL (1.8-2.4) Test 12/08/20 12:53 12/08/20 13:27 12/08/20 13:48 12/08/20 15:29 Glucose (Fingerstick) 86 mg/dL (70-99) 88 mg/dL (70-99) 80 mg/dL (70-99) Cortisol PM Sample 2.0 ug/dL (3.1-16.7) Test 12/08/20 17:04 12/08/20 17:29 12/08/20 22:30 12/09/20 05:15 Glucose (Fingerstick) 117 mg/dL (70-99) White Blood Count 13.8 x10^3/uL (4.0-11.0) 16.7 x10^3/uL (4.0-11.0) Red Blood Count 3.37 x10^6/uL (3.50-5.40) 3.36 x10^6/uL (3.50-5.40) Hemoglobin 10.9 g/dL (12.0-15.5) 10.9 g/dL (12.0-15.5) Hematocrit 33.0 % (36.0-47.0) 33.0 % (36.0-47.0) Mean Corpuscular Volume 98 fL (79-100) 98 fL (79-100) Mean Corpuscular Hemoglobin 32 pg (25-35) 33 pg (25-35) Mean Corpuscular Hemoglobin Concent 33 g/dL (31-37) 33 g/dL (31-37) Red Cell Distribution Width 19.2 % (11.5-14.5) 19.1 % (11.5-14.5) Platelet Count 231 x10^3/uL (140-400) 240 x10^3/uL (140-400) Neutrophils (%) (Auto) 70 % (31-73) 86 % (31-73) Lymphocytes (%) (Auto) 19 % (24-48) 9 % (24-48) Monocytes (%) (Auto) 9 % (0-9) 5 % (0-9) Eosinophils (%) (Auto) 1 % (0-3) 0 % (0-3) Basophils (%) (Auto) 1 % (0-3) 0 % (0-3) Neutrophils # (Auto) 9.7 x10^3/uL (1.8-7.7) 14.3 x10^3/uL (1.8-7.7) Lymphocytes # (Auto) 2.6 x10^3/uL (1.0-4.8) 1.4 x10^3/uL (1.0-4.8) Monocytes # (Auto) 1.3 x10^3/uL (0.0-1.1) 0.9 x10^3/uL (0.0-1.1) Eosinophils # (Auto) 0.1 x10^3/uL (0.0-0.7) 0.0 x10^3/uL (0.0-0.7) Basophils # (Auto) 0.1 x10^3/uL (0.0-0.2) 0.0 x10^3/uL (0.0-0.2) Prothrombin Time 13.6 SEC (11.7-14.0) Prothromb Time International Ratio 1.1 (0.8-1.1) Sodium Level 145 mmol/L (136-145) 141 mmol/L (136-145) 143 mmol/L (136-145) Potassium Level 2.5 mmol/L (3.5-5.1) 3.7 mmol/L (3.5-5.1) 4.3 mmol/L (3.5-5.1) Chloride Level 110 mmol/L (98-107) 110 mmol/L (98-107) 110 mmol/L (98-107) Carbon Dioxide Level 21 mmol/L (21-32) 21 mmol/L (21-32) 20 mmol/L (21-32) Anion Gap 14 (6-14) 10 (6-14) 13 (6-14) Blood Urea Nitrogen 5 mg/dL (7-20) 5 mg/dL (7-20) 4 mg/dL (7-20) Creatinine 1.2 mg/dL (0.6-1.0) 1.4 mg/dL (0.6-1.0) 1.5 mg/dL (0.6-1.0) Estimated GFR (Cockcroft-Gault) 50.8 42.5 39.3 Glucose Level 122 mg/dL (70-99) 186 mg/dL (70-99) 149 mg/dL (70-99) Calcium Level 6.4 mg/dL (8.5-10.1) 6.8 mg/dL (8.5-10.1) 7.2 mg/dL (8.5-10.1) Ionized Calcium 0.90 mmol/L (1.13-1.32) Phosphorus Level 4.0 mg/dL (2.6-4.7) Magnesium Level 2.1 mg/dL (1.8-2.4) 2.6 mg/dL (1.8-2.4) Thyroid Stimulating Hormone (TSH) 0.592 uIU/mL (0.358-3.74) Test 12/09/20 08:00 12/09/20 08:39 O2 Saturation 99 % (92-99) Arterial Blood pH 7.35 (7.35-7.45) Arterial Blood pCO2 at Patient Temp 36 mmHg (35-46) Arterial Blood pO2 at Patient Temp 146 mmHg (85-108) Arterial Blood HCO3 20 mmol/L (21-28) Arterial Blood Base Excess -5 mmol/L (-3-3) FiO2 35% vent Glucose (Fingerstick) 112 mg/dL (70-99) Microbiology Micro Microbiology 12/07/20 Urine Culture - Final, Complete Physical Exam HEENT: Neck Supple W Full Motion Chest: Symmetric LUNGS: Clear to Auscultation Heart: S1S2, RRR, no murmurs Abdomen: Soft N/T Extremities: No Edema Neurology: alert, oriented, follow commands Assessment Assessment 1. Nausea/vomiting, gastroparesis; as per GI 2. VFIB arrest in setting of significant electrolyte abnormalities and QT prolongation. QTC 506. Approximately 10 mins prior to ROSC. No further arrhythmias noted on tele. hypothermia protocol initiated; now rewarmed. Echo with preserved LV systolic function 3. QT prolongation; EKG this am with QTc 536. 3. Severe hypokalemia, hypomagnesemia; replaced 4. Acute respiratory failure secondary to cardiac arrest; s/p extubation. Is alert and responding appropriately this morning 5. Leukocytosis 6. TIA 7. Hypotensive; off levophed 8. Anxiety, depression Recommendations Monitor electrolytes and replaced as warranted Avoid QT prolonging meds; discontinue promethazine and ondansetron Echo with preserved LV systolic function and no WMA. VF most probably secondary to severe electrolyte abnormalities and QT prolongation. Underlying CAD cannot be ruled out completely, but overall suspicion is low. This was discussed with both patient and father, Antonino, along with consideration of [facility] to completely rule out obstructive coronary disease. Both would like to hold off on left heart catheterization for now and only consider if further ventricular arrhythmias noted. Supportive care Justicifation of Admission Dx: Justifications for Admission: Justification of Admission Dx: Yes CHF: Sev. Electrolyte Abnormal VISHAL LAI MD 12/09/20 7014: CARDIO Progress Notes Assessment Assessment Patient seen and examined. Agree with [employer]'s assessment and plan. Telemetry did not show any significant arrhythmias. 2D echo showed normal LV systolic function. Ventricular fibrillation also be secondary to electrolyte abnormalities and QT prolongation. Family would like to hold off on cardiac catheterization at this time. Continue management of nausea/vomiting/gastroparesis per GI team. REI PERSAUD APRN Dec 09, 2020 10:18 VISHAL LAI MD Dec 09, 2020 17:04
--- NOTE | 2020-12-09 10:59 | EKG ---
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
[2020-12-09] MEDS ORDERED: POTASSIUM CL 20MEQ D5-0.2%NACL 1,000 ML IV SCH (11:15)
--- NOTE | 2020-12-09 11:59 | PDOC2 ---
CONSULT Date of Consult Date of Consult DATE: 12/09/20 TIME: 11:52 Reason for Consult Reason for Consult: TIA AND LOW K Referring Physician Referring Physician: CANDE Identification/Chief Complaint Chief Complaint N/V Source Source: Chart review History of Present Illness Reason for Visit: THIS IS A 35 YR OLD WITH N/V FOR SEVERAL DAYS. ON ADMIT NOTED TO HAVE SEVERE HYPOKALEMIA AND LOW MAG. SUDDENLY COLLAPSED IN THE ER WITH TORSADES, CONVERTED TO V FIB AND NSR WITH ROSC AFTER RESUSCITATION. HAS BEEN ON THE VENT ON HYPOTHERMIA PROTOCOL. CR OF 1.5 TODAY. NO CKD NOTED. HEMODYNAMICALLY STABLE. HAS HAD HOPSON IN PLACE WITH LOW UO YESTERDAY EVENING BUT SINCE HAS IMPROVED. LEUCOCY TOSIS NOTED AND UA NEG FOR ACUTE FINDINGS. CARDIOLOGY, ID AND PULMONARY EVALUATION ONGOING AT THIS TIME Past Medical History Cardiovascular: Hyperlipidemia Pulmonary: No pertinent hx GI: GERD (Kong's esophagus) Heme/Onc: No pertinent hx Hepatobiliary: No pertinent hx Psych: Anxiety, Depression Musculoskeletal: Other (Avascular necrosis) Rheumatologic: No pertinent hx Infectious disease: Other Renal/: No pertinent hx Endocrine: No pertinent hx Past Surgical History Past Surgical History: Cholecystectomy, Other (Right ankle ligament, left groin abscess) Family History Family History: Cancer, Hypertension Social History <1 pack per day ALCOHOL: none Drugs: Marijuana Current Problem List Problem List Problems Medical Problems: (1) Cardiac arrest Status: Acute (2) Hypokalemia Status: Acute (3) Hypomagnesemia Status: Acute (4) Nausea and vomiting Status: Acute (5) Prolonged QT interval Status: Acute Current Medications Current Medications Current Medications Ringer's Solution 500 ml @ 500 mls/hr 1X ONCE IV ; Start 12/07/20 at 05:00; Stop 12/07/20 at 05:59; Status DC Ringer's Solution 500 ml @ 500 mls/hr 1X ONCE IV ; Start 12/07/20 at 05:00; Stop 12/07/20 at 05:59; Status DC Metoclopramide HCl (Reglan Vial) 10 mg 1X ONCE IVP ; Start 12/07/20 at 05:30; Stop 12/07/20 at 05:05; Status DC Ringer's Solution 500 ml @ 500 mls/hr 1X ONCE IV ; Start 12/07/20 at 05:30; Stop 12/07/20 at 06:29; Status DC Haloperidol Lactate (Haldol Inj) 5 mg STK-MED ONCE .ROUTE ; Start 12/07/20 at 05:05; Stop 12/07/20 at 05:05; Status DC Haloperidol Lactate (Haldol Inj) 5 mg 1X ONCE IVP Last administered on 12/07/20at 05:14; Start 12/07/20 at 05:30; Stop 12/07/20 at 05:31; Status DC Diphenhydramine HCl (Benadryl) 50 mg 1X ONCE IVP Last administered on 12/07/20at 05:14; Start 12/07/20 at 05:30; Stop 12/07/20 at 05:31; Status DC Ringer's Solution 500 ml @ 1,000 mls/hr 1X ONCE IV Last administered on 12/07/20at 05:13; Start 12/07/20 at 05:30; Stop 12/07/20 at 05:59; Status DC Propofol 100 ml @ As Directed STK-MED ONCE IV ; Start 12/07/20 at 05:56; Stop 12/07/20 at 05:56; Status DC Potassium Chloride/Sodium Chloride 1,000 ml @ 125 mls/hr Q8H IV Last administered on 12/07/20at 06:30; Start 12/07/20 at 06:30; Stop 12/07/20 at 14:29; Status DC Midazolam HCl (Versed) 5 mg STK-MED ONCE .ROUTE ; Start 12/07/20 at 06:29; Stop 12/07/20 at 06:30; Status DC Fentanyl Citrate 30 ml @ 0 mls/hr CONT PRN IV SEE PROTOCOL; Start 12/07/20 at 07:00; Status Cancel Chlorhexidine Gluconate (Peridex) 15 ml BID MM Last administered on 12/07/20at 09:00; Start 12/07/20 at 09:00; Stop 12/07/20 at 18:44; Status DC Midazolam HCl 100 ml @ 0 mls/hr CONT PRN IV SEE PROTOCOL Last administered on 12/07/20at 20:29; Start 12/07/20 at 07:00 Magnesium Sulfate 100 ml @ 25 mls/hr 1X ONCE IV Last administered on 12/07/20at 08:47; Start 12/07/20 at 07:30; Stop 12/07/20 at 11:29; Status DC Famotidine (Pepcid Vial) 20 mg BID IVP ; Start 12/07/20 at 09:00; Stop 12/07/20 at 10:56; Status DC Buspirone HCl (Buspar) 30 mg Q8H NG Last administered on 12/08/20 16:18; Start 12/07/20 at 08:00; Stop 12/08/20 at 21:06; Status DC Acetaminophen (Tylenol) 650 mg Q4H NG Last administered on 12/08/20 16:22; Start 12/07/20 at 08:00; Stop 12/08/20 at 22:07; Status DC Glycerin/ Hypromellose/ Polyethylene (Artificial Tears) 1 drop Q6HRS OU Last administered on 12/07/20 17:25; Start 12/07/20 at 12:00; Stop 12/07/20 at 18:44; Status DC Glycerin/ Hypromellose/ Polyethylene (Artificial Tears) 1 drop PRN Q15MIN PRN OU DRY EYE; Start 12/07/20 at 08:00 Heparin Sodium (Porcine) (Heparin Sodium) 5,000 unit BID SQ Last administered on 12/09/20 08:30; Start 12/07/20 at 09:00 Pantoprazole Sodium (PROTONIX VIAL for IV PUSH) 40 mg DAILY IVP Last administ ered on 12/09/20 08:29; Start 12/07/20 at 09:00 Fentanyl Citrate 30 ml @ 0 mls/hr CONT PRN IV PER PROTOCOL. Last administered on 12/09/20 04:17; Start 12/07/20 at 08:00 Propofol 100 ml @ 0 mls/hr CONT PRN IV PER PROTOCOL. Last administered on 12/09/20 04:08; Start 12/07/20 at 08:00 Midazolam HCl 100 ml @ 0 mls/hr CONT PRN IV PER PROTOCOL; Start 12/07/20 at 08:00; Status UNV Vecuronium Downing (Norcuron Bolus) 6 mg PRN Q1HR PRN IV SHIVERING Last administered on 12/07/20 08:47; Start 12/07/20 at 08:00 Potassium Chloride/Water 100 ml @ 100 mls/hr Q1H IV Last administered on 4/14/21at 10:49; Start 12/07/20 at 09:00; Stop 12/07/20 at 12:59; Status DC Potassium Chloride/Water 100 ml @ 100 mls/hr Q1H IV ; Start 12/07/20 at 12:00; Stop 12/07/20 at 14:59; Status DC Potassium Phosphate 10 mmol/ Sodium Chloride 103.3333 ml @ 51.667 m... Q2H IV Last administered on 12/07/20at 12:00; Start 12/07/20 at 10:00; Stop 12/07/20 at 13:59; Status DC Potassium Phosphate 10 mmol/ Sodium Chloride 103.3333 ml @ 51.667 m... Q2H IV Last administered on 12/07/20at 13:43; Start 12/07/20 at 12:00; Stop 12/07/20 at 15:59; Status DC Sodium Bicarbonate (Sodium Bicarb Adult 8.4% Syr) 50 meq STK-MED ONCE .ROUTE ; Start 12/07/20 at 12:00; Stop 12/07/20 at 15:47; Status DC Amiodarone HCl (Cordarone) 300 mg STK-MED ONCE .ROUTE ; Start 12/07/20 at 12:00; Stop 12/07/20 at 15:47; Status DC Epinephrine HCl (EPINEPHrine SYRINGE) 3 mg STK-MED ONCE .ROUTE ; Start 12/07/20 at 12:00; Stop 12/07/20 at 15:47; Status DC Midazolam HCl (Versed) 5 mg STK-MED ONCE .ROUTE ; Start 12/07/20 at 12:00; Stop 12/07/20 at 15:47; Status DC Magnesium Sulfate/ Dextrose (Magnesium Sulfate PREMIX 1GM) 1 gm STK-MED ONCE IV ; Start 12/07/20 at 12:00; Stop 12/07/20 at 15:47; Status DC Sodium Chloride 1,000 ml @ 50 mls/hr Q20H IV Last administered on 12/08/20at 13:13; Start 12/07/20 at 17:30; Stop 12/08/20 at 13:53; Status DC Potassium Chloride/Water 100 ml @ 100 mls/hr 1X ONCE IV Last administered on 12/07/20at 23:35; Start 12/07/20 at 23:30; Stop 12/08/20 at 00:29; Status DC Dopamine HCl/ Dextrose 250 ml @ 13.481 mls/ hr CONT PRN IV SEE I/O RECORD; Start 12/08/20 at 06:45 Dextrose (Dextrose 50%-Water Syringe) 12.5 gm PRN Q15MIN PRN IV SEE COMMENTS Last administered on 12/08/20at 10:04; Start 12/08/20 at 10:00 Potassium Chloride/Water 100 ml @ 100 mls/hr 1X ONCE IV Last administered on 12/08/20at 14:27; Start 12/08/20 at 13:45; Stop 12/08/20 at 14:44; Status DC Dextrose/Sodium Chloride 1,000 ml @ 75 mls/hr [id number] IV Last administered on 12/08/20at 14:16; Start 12/08/20 at 13:45; Stop 12/08/20 at 18:42; Status DC Norepinephrine Bitartrate 8 mg/ Dextrose 258 ml @ 13.913 mls/ hr CONT PRN IV PER PROTOCOL Last administered on 12/08/20at 15:11; Start 12/08/20 at 15:00 Hydrocortisone Sodium Succinate (Solu-CORTEF) 100 mg Q12HR IVP Last administered on 12/09/20at 08:29; Start 12/08/20 at 15:30 Potassium Chloride/Dextrose/ Sod Cl 1,000 ml @ 125 mls/hr Q8H IV Last administered on 12/09/20at 04:09; Start 12/08/20 at 19:00; Stop 12/09/20 at 11:13; Status DC Potassium Chloride/Water 100 ml @ 100 mls/hr Q1H IV Last administered on 12/08/20at 20:03; Start 12/08/20 at 19:00; Stop 12/08/20 at 20:59; Status DC Magnesium Sulfate/ Dextrose 100 ml @ 100 mls/hr 1X ONCE IV Last administered on 12/08/20at 18:51; Start 12/08/20 at 19:00; Stop 12/08/20 at 19:59; Status DC Cefepime HCl (Maxipime) 2 gm Q12HR IVP Last administered on 12/09/20at 08:29; Start 12/08/20 at 21:30 Calcium Gluconate 1000 mg/Sodium Chloride 110 ml @ 220 mls/hr 1X ONCE IV Last administered on 12/08/20at 23:40; Start 12/08/20 at 22:30; Stop 12/08/20 at 22:59; Status DC Dexmedetomidine HCl 400 mcg/ Sodium Chloride 100 ml @ 0 mls/hr CONT PRN IV PER PROTOCOL; Start 12/09/20 at 08:45 Sodium Chloride 500 ml @ 500 mls/hr 1X PRN PRN IV SEE COMMENTS; Start 12/09/20 at 08:45 Atropine Sulfate (ATROPINE 0.5mg SYRINGE) 0.5 mg PRN Q5MIN PRN IV SEE COMMENTS; Start 12/09/20 at 08:45 Potassium Chloride/Dextrose/ Sod Cl 1,000 ml @ 75 mls/hr [id number] IV ; Start 12/09/20 at 11:15; Stop 12/09/20 at 11:35; Status DC Potassium Chloride/Dextrose/ Sod Cl 1,000 ml @ 75 mls/hr [id number] IV ; Start 12/09/20 at 11:45 Active Scripts Active Vancomycin Hcl 125 Mg Capsule 1 Cap PO QID 10 Days Potassium Chloride (Potassium Chloride) 20 Meq Tablet.er 20 Meq PO BIDAC 30 Days Reglan (Metoclopramide Hcl) 10 Mg Tablet 10 Mg PO TID PRN Compazine (Prochlorperazine Maleate) 10 Mg Tablet 1 Tab PO Q6HRS Ondansetron Odt (Ondansetron) 4 Mg Tab.rapdis 1 Tab PO PRN Q6-8HRS Amitriptyline Hcl 10 Mg Tablet 1 Tab PO QHS 90 Days Celexa (Citalopram Hydrobromide) 20 Mg Tablet 1 Tab PO QHS Reported Fenofibrate (Fenofibrate,Micronized) 134 Mg Capsule 134 Mg PO DAILY Nexium Capsule (Esomeprazole Magnesium) 40 Mg Capsule.dr 1 Cap PO DAILY Allergies Allergies: Coded Allergies: Corticosteroids (Glucocorticoids) (Verified Allergy, Severe, facial swelling, 05/25/20) Penicillins (Verified Allergy, Intermediate, hives, 05/25/20) I S O L A T I O N *CONTACT* (Verified Allergy, Unknown, 06/03/19) mrsa hydrocodone (Verified Adverse Reaction, Mild, Nausea, 05/25/20) ROS Review of System UNABLE TO OBTAIN Physical Exam General: No acute distress HEENT: Atraumatic, PERRLA Lungs: Clear to auscultation, Other (ETT EARLY THIS AM) Heart: Regular rate Abdomen: Normal bowel sounds, Soft, No tenderness Extremities: No cyanosis Skin: No breakdown Neuro: Other (UNABLE TO ASSESS) Psych/Mental Status: Other (SEDATED) MUSCULOSKELETAL: No joint tenderness, No deformity Vitals VITALS Vital Signs Date Time Temp Pulse Resp B/P (MAP) Pulse Ox O2 Delivery O2 Flow Rate FiO2 12/09/20 10:00 98.6 70 14 118/85 (96) 97 Nasal Cannula 98.6 12/09/20 04:47 35.0 Labs Labs Laboratory Tests Test 12/07/20 13:15 12/07/20 15:08 12/07/20 16:16 12/07/20 17:00 Glucose (Fingerstick) 122 mg/dL (70-99) 124 mg/dL (70-99) 131 mg/dL (70-99) White Blood Count 22.4 x10^3/uL (4.0-11.0) Red Blood Count 4.02 x10^6/uL (3.50-5.40) Hemoglobin 13.2 g/dL (12.0-15.5) Hematocrit 38.9 % (36.0-47.0) Mean Corpuscular Volume 97 fL (79-100) Mean Corpuscular Hemoglobin 33 pg (25-35) Mean Corpuscular Hemoglobin Concent 34 g/dL (31-37) Red Cell Distribution Width 18.9 % (11.5-14.5) Platelet Count 260 x10^3/uL (140-400) Neutrophils (%) (Auto) 79 % (31-73) Lymphocytes (%) (Auto) 11 % (24-48) Monocytes (%) (Auto) 9 % (0-9) Eosinophils (%) (Auto) 0 % (0-3) Basophils (%) (Auto) 1 % (0-3) Neutrophils # (Auto) 17.6 x10^3/uL (1.8-7.7) Lymphocytes # (Auto) 2.5 x10^3/uL (1.0-4.8) Monocytes # (Auto) 2.1 x10^3/uL (0.0-1.1) Eosinophils # (Auto) 0.0 x10^3/uL (0.0-0.7) Basophils # (Auto) 0.1 x10^3/uL (0.0-0.2) Segmented Neutrophils % 84 % (35-66) Lymphocytes % 9 % (24-48) Monocytes % 7 % (0-10) Platelet Estimate Adequate (ADEQUATE) Anisocytosis Slight Prothrombin Time 13.9 SEC (11.7-14.0) Prothromb Time International Ratio 1.1 (0.8-1.1) Activated Partial Thromboplast Time 30 SEC (24-38) Sodium Level 142 mmol/L (136-145) Potassium Level 3.6 mmol/L (3.5-5.1) Chloride Level 106 mmol/L (98-107) Carbon Dioxide Level 25 mmol/L (21-32) Anion Gap 11 (6-14) Blood Urea Nitrogen 4 mg/dL (7-20) Creatinine 0.8 mg/dL (0.6-1.0) Estimated GFR (Cockcroft-Gault) 81.2 Glucose Level 113 mg/dL (70-99) Calcium Level 6.9 mg/dL (8.5-10.1) Phosphorus Level 5.7 mg/dL (2.6-4.7) Magnesium Level 3.3 mg/dL (1.8-2.4) Test 12/07/20 21:09 12/07/20 22:53 12/08/20 04:13 12/08/20 05:20 Glucose (Fingerstick) 112 mg/dL (70-99) 83 mg/dL (70-99) White Blood Count 15.6 x10^3/uL (4.0-11.0) 12.5 x10^3/uL (4.0-11.0) Red Blood Count 3.65 x10^6/uL (3.50-5.40) 3.74 x10^6/uL (3.50-5.40) Hemoglobin 12.0 g/dL (12.0-15.5) 12.2 g/dL (12.0-15.5) Hematocrit 35.3 % (36.0-47.0) 36.6 % (36.0-47.0) Mean Corpuscular Volume 97 fL (79-100) 98 fL (79-100) Mean Corpuscular Hemoglobin 33 pg (25-35) 33 pg (25-35) Mean Corpuscular Hemoglobin Concent 34 g/dL (31-37) 33 g/dL (31-37) Red Cell Distribution Width 18.8 % (11.5-14.5) 18.9 % (11.5-14.5) Platelet Count 226 x10^3/uL (140-400) 208 x10^3/uL (140-400) Neutrophils (%) (Auto) 70 % (31-73) 67 % (31-73) Lymphocytes (%) (Auto) 21 % (24-48) 20 % (24-48) Monocytes (%) (Auto) 9 % (0-9) 12 % (0-9) Eosinophils (%) (Auto) 0 % (0-3) 0 % (0-3) Basophils (%) (Auto) 0 % (0-3) 0 % (0-3) Neutrophils # (Auto) 10.8 x10^3/uL (1.8-7.7) 8.4 x10^3/uL (1.8-7.7) Lymphocytes # (Auto) 3.2 x10^3/uL (1.0-4.8) 2.5 x10^3/uL (1.0-4.8) Monocytes # (Auto) 1.4 x10^3/uL (0.0-1.1) 1.5 x10^3/uL (0.0-1.1) Eosinophils # (Auto) 0.0 x10^3/uL (0.0-0.7) 0.1 x10^3/uL (0.0-0.7) Basophils # (Auto) 0.1 x10^3/uL (0.0-0.2) 0.0 x10^3/uL (0.0-0.2) Prothrombin Time 14.3 SEC (11.7-14.0) 13.3 SEC (11.7-14.0) Prothromb Time International Ratio 1.2 (0.8-1.1) 1.1 (0.8-1.1) Activated Partial Thromboplast Time 43 SEC (24-38) 42 SEC (24-38) Sodium Level 144 mmol/L (136-145) 144 mmol/L (136-145) Potassium Level 2.7 mmol/L (3.5-5.1) 3.1 mmol/L (3.5-5.1) Chloride Level 108 mmol/L (98-107) 110 mmol/L (98-107) Carbon Dioxide Level 26 mmol/L (21-32) 24 mmol/L (21-32) Anion Gap 10 (6-14) 10 (6-14) Blood Urea Nitrogen 4 mg/dL (7-20) 5 mg/dL (7-20) Creatinine 0.7 mg/dL (0.6-1.0) 1.0 mg/dL (0.6-1.0) Estimated GFR (Cockcroft-Gault) 94.7 62.7 Glucose Level 99 mg/dL (70-99) 92 mg/dL (70-99) Calcium Level 6.9 mg/dL (8.5-10.1) 6.7 mg/dL (8.5-10.1) Phosphorus Level 3.5 mg/dL (2.6-4.7) 3.5 mg/dL (2.6-4.7) Magnesium Level 3.0 mg/dL (1.8-2.4) 2.7 mg/dL (1.8-2.4) Cortisol AM Sample 8.6 ug/dL (4.3-22.4) Test 12/08/20 07:22 12/08/20 07:50 12/08/20 08:30 12/08/20 08:35 Glucose (Fingerstick) 88 mg/dL (70-99) 79 mg/dL (70-99) O2 Saturation 99 % (92-99) Arterial Blood pH 7.36 (7.35-7.45) Arterial Blood pH (Temp corrected) 7.40 Arterial Blood pCO2 at Patient Temp 40 mmHg (35-46) Arterial Blood pCO2 (Temp correct) 35 mmHg Arterial Blood pO2 at Patient Temp 148 mmHg (85-108) Arterial Blood pO2 (Temp corrected) 130 mmHg Arterial Blood HCO3 22 mmol/L (21-28) Arterial Blood Base Excess -3 mmol/L (-3-3) FiO2 35/vent Potassium Level 2.8 mmol/L (3.5-5.1) SARS-CoV-2 RNA (RICK) Negative (Negative) Test 12/08/20 09:00 12/08/20 09:48 12/08/20 10:52 12/08/20 11:41 SARS-CoV-2 Antigen (Rapid) Negative (NEGATIVE) Glucose (Fingerstick) 51 mg/dL (70-99) 183 mg/dL (70-99) 123 mg/dL (70-99) Test 12/08/20 12:00 12/08/20 12:30 12/08/20 12:53 12/08/20 13:27 Procalcitonin 0.13 ng/mL (0.00-0.10) Free Thyroxine 1.00 ng/dL (0.76-1.46) HIV (1&2) Antibody Screen Nonreactive (Nonreactive) White Blood Count 10.5 x10^3/uL (4.0-11.0) Red Blood Count 3.31 x10^6/uL (3.50-5.40) Hemoglobin 10.7 g/dL (12.0-15.5) Hematocrit 32.1 % (36.0-47.0) Mean Corpuscular Volume 97 fL (79-100) Mean Corpuscular Hemoglobin 33 pg (25-35) Mean Corpuscular Hemoglobin Concent 34 g/dL (31-37) Red Cell Distribution Width 18.5 % (11.5-14.5) Platelet Count 196 x10^3/uL (140-400) Neutrophils (%) (Auto) 65 % (31-73) Lymphocytes (%) (Auto) 22 % (24-48) Monocytes (%) (Auto) 11 % (0-9) Eosinophils (%) (Auto) 1 % (0-3) Basophils (%) (Auto) 0 % (0-3) Neutrophils # (Auto) 6.8 x10^3/uL (1.8-7.7) Lymphocytes # (Auto) 2.3 x10^3/uL (1.0-4.8) Monocytes # (Auto) 1.2 x10^3/uL (0.0-1.1) Eosinophils # (Auto) 0.1 x10^3/uL (0.0-0.7) Basophils # (Auto) 0.0 x10^3/uL (0.0-0.2) Prothrombin Time 13.8 SEC (11.7-14.0) Prothromb Time International Ratio 1.1 (0.8-1.1) Sodium Level 148 mmol/L (136-145) Potassium Level 2.2 mmol/L (3.5-5.1) Chloride Level 112 mmol/L (98-107) Carbon Dioxide Level 24 mmol/L (21-32) Anion Gap 12 (6-14) Blood Urea Nitrogen 5 mg/dL (7-20) Creatinine 1.2 mg/dL (0.6-1.0) Estimated GFR (Cockcroft-Gault) 50.8 Glucose Level 80 mg/dL (70-99) Calcium Level 6.7 mg/dL (8.5-10.1) Ionized Calcium 0.99 mmol/L (1.13-1.32) Phosphorus Level 2.7 mg/dL (2.6-4.7) Magnesium Level 2.5 mg/dL (1.8-2.4) Glucose (Fingerstick) 86 mg/dL (70-99) Cortisol PM Sample 2.0 ug/dL (3.1-16.7) Test 12/08/20 13:48 12/08/20 15:29 12/08/20 17:04 12/08/20 17:29 Glucose (Fingerstick) 88 mg/dL (70-99) 80 mg/dL (70-99) 117 mg/dL (70-99) White Blood Count 13.8 x10^3/uL (4.0-11.0) Red Blood Count 3.37 x10^6/uL (3.50-5.40) Hemoglobin 10.9 g/dL (12.0-15.5) Hematocrit 33.0 % (36.0-47.0) Mean Corpuscular Volume 98 fL (79-100) Mean Corpuscular Hemoglobin 32 pg (25-35) Mean Corpuscular Hemoglobin Concent 33 g/dL (31-37) Red Cell Distribution Width 19.2 % (11.5-14.5) Platelet Count 231 x10^3/uL (140-400) Neutrophils (%) (Auto) 70 % (31-73) Lymphocytes (%) (Auto) 19 % (24-48) Monocytes (%) (Auto) 9 % (0-9) Eosinophils (%) (Auto) 1 % (0-3) Basophils (%) (Auto) 1 % (0-3) Neutrophils # (Auto) 9.7 x10^3/uL (1.8-7.7) Lymphocytes # (Auto) 2.6 x10^3/uL (1.0-4.8) Monocytes # (Auto) 1.3 x10^3/uL (0.0-1.1) Eosinophils # (Auto) 0.1 x10^3/uL (0.0-0.7) Basophils # (Auto) 0.1 x10^3/uL (0.0-0.2) Prothrombin Time 13.6 SEC (11.7-14.0) Prothromb Time International Ratio 1.1 (0.8-1.1) Sodium Level 145 mmol/L (136-145) Potassium Level 2.5 mmol/L (3.5-5.1) Chloride Level 110 mmol/L (98-107) Carbon Dioxide Level 21 mmol/L (21-32) Anion Gap 14 (6-14) Blood Urea Nitrogen 5 mg/dL (7-20) Creatinine 1.2 mg/dL (0.6-1.0) Estimated GFR (Cockcroft-Gault) 50.8 Glucose Level 122 mg/dL (70-99) Calcium Level 6.4 mg/dL (8.5-10.1) Ionized Calcium 0.90 mmol/L (1.13-1.32) Phosphorus Level 4.0 mg/dL (2.6-4.7) Magnesium Level 2.1 mg/dL (1.8-2.4) Test 12/08/20 22:30 12/09/20 05:15 12/09/20 08:00 12/09/20 08:39 Sodium Level 141 mmol/L (136-145) 143 mmol/L (136-145) Potassium Level 3.7 mmol/L (3.5-5.1) 4.3 mmol/L (3.5-5.1) Chloride Level 110 mmol/L (98-107) 110 mmol/L (98-107) Carbon Dioxide Level 21 mmol/L (21-32) 20 mmol/L (21-32) Anion Gap 10 (6-14) 13 (6-14) Blood Urea Nitrogen 5 mg/dL (7-20) 4 mg/dL (7-20) Creatinine 1.4 mg/dL (0.6-1.0) 1.5 mg/dL (0.6-1.0) Estimated GFR (Cockcroft-Gault) 42.5 39.3 Glucose Level 186 mg/dL (70-99) 149 mg/dL (70-99) Calcium Level 6.8 mg/dL (8.5-10.1) 7.2 mg/dL (8.5-10.1) White Blood Count 16.7 x10^3/uL (4.0-11.0) Red Blood Count 3.36 x10^6/uL (3.50-5.40) Hemoglobin 10.9 g/dL (12.0-15.5) Hematocrit 33.0 % (36.0-47.0) Mean Corpuscular Volume 98 fL (79-100) Mean Corpuscular Hemoglobin 33 pg (25-35) Mean Corpuscular Hemoglobin Concent 33 g/dL (31-37) Red Cell Distribution Width 19.1 % (11.5-14.5) Platelet Count 240 x10^3/uL (140-400) Neutrophils (%) (Auto) 86 % (31-73) Lymphocytes (%) (Auto) 9 % (24-48) Monocytes (%) (Auto) 5 % (0-9) Eosinophils (%) (Auto) 0 % (0-3) Basophils (%) (Auto) 0 % (0-3) Neutrophils # (Auto) 14.3 x10^3/uL (1.8-7.7) Lymphocytes # (Auto) 1.4 x10^3/uL (1.0-4.8) Monocytes # (Auto) 0.9 x10^3/uL (0.0-1.1) Eosinophils # (Auto) 0.0 x10^3/uL (0.0-0.7) Basophils # (Auto) 0.0 x10^3/uL (0.0-0.2) Magnesium Level 2.6 mg/dL (1.8-2.4) Thyroid Stimulating Hormone (TSH) 0.592 uIU/mL (0.358-3.74) O2 Saturation 99 % (92-99) Arterial Blood pH 7.35 (7.35-7.45) Arterial Blood pCO2 at Patient Temp 36 mmHg (35-46) Arterial Blood pO2 at Patient Temp 146 mmHg (85-108) Arterial Blood HCO3 20 mmol/L (21-28) Arterial Blood Base Excess -5 mmol/L (-3-3) FiO2 35% vent Glucose (Fingerstick) 112 mg/dL (70-99) Laboratory Tests Test 12/08/20 12:00 12/08/20 12:30 12/08/20 12:53 12/08/20 13:27 Procalcitonin 0.13 ng/mL (0.00-0.10) Free Thyroxine 1.00 ng/dL (0.76-1.46) HIV (1&2) Antibody Screen Nonreactive (Nonreactive) White Blood Count 10.5 x10^3/uL (4.0-11.0) Red Blood Count 3.31 x10^6/uL (3.50-5.40) Hemoglobin 10.7 g/dL (12.0-15.5) Hematocrit 32.1 % (36.0-47.0) Mean Corpuscular Volume 97 fL (79-100) Mean Corpuscular Hemoglobin 33 pg (25-35) Mean Corpuscular Hemoglobin Concent 34 g/dL (31-37) Red Cell Distribution Width 18.5 % (11.5-14.5) Platelet Count 196 x10^3/uL (140-400) Neutrophils (%) (Auto) 65 % (31-73) Lymphocytes (%) (Auto) 22 % (24-48) Monocytes (%) (Auto) 11 % (0-9) Eosinophils (%) (Auto) 1 % (0-3) Basophils (%) (Auto) 0 % (0-3) Neutrophils # (Auto) 6.8 x10^3/uL (1.8-7.7) Lymphocytes # (Auto) 2.3 x10^3/uL (1.0-4.8) Monocytes # (Auto) 1.2 x10^3/uL (0.0-1.1) Eosinophils # (Auto) 0.1 x10^3/uL (0.0-0.7) Basophils # (Auto) 0.0 x10^3/uL (0.0-0.2) Prothrombin Time 13.8 SEC (11.7-14.0) Prothromb Time International Ratio 1.1 (0.8-1.1) Sodium Level 148 mmol/L (136-145) Potassium Level 2.2 mmol/L (3.5-5.1) Chloride Level 112 mmol/L (98-107) Carbon Dioxide Level 24 mmol/L (21-32) Anion Gap 12 (6-14) Blood Urea Nitrogen 5 mg/dL (7-20) Creatinine 1.2 mg/dL (0.6-1.0) Estimated GFR (Cockcroft-Gault) 50.8 Glucose Level 80 mg/dL (70-99) Calcium Level 6.7 mg/dL (8.5-10.1) Ionized Calcium 0.99 mmol/L (1.13-1.32) Phosphorus Level 2.7 mg/dL (2.6-4.7) Magnesium Level 2.5 mg/dL (1.8-2.4) Glucose (Fingerstick) 86 mg/dL (70-99) Cortisol PM Sample 2.0 ug/dL (3.1-16.7) Test 12/08/20 13:48 12/08/20 15:29 12/08/20 17:04 12/08/20 17:29 Glucose (Fingerstick) 88 mg/dL (70-99) 80 mg/dL (70-99) 117 mg/dL (70-99) White Blood Count 13.8 x10^3/uL (4.0-11.0) Red Blood Count 3.37 x10^6/uL (3.50-5.40) Hemoglobin 10.9 g/dL (12.0-15.5) Hematocrit 33.0 % (36.0-47.0) Mean Corpuscular Volume 98 fL (79-100) Mean Corpuscular Hemoglobin 32 pg (25-35) Mean Corpuscular Hemoglobin Concent 33 g/dL (31-37) Red Cell Distribution Width 19.2 % (11.5-14.5) Platelet Count 231 x10^3/uL (140-400) Neutrophils (%) (Auto) 70 % (31-73) Lymphocytes (%) (Auto) 19 % (24-48) Monocytes (%) (Auto) 9 % (0-9) Eosinophils (%) (Auto) 1 % (0-3) Basophils (%) (Auto) 1 % (0-3) Neutrophils # (Auto) 9.7 x10^3/uL (1.8-7.7) Lymphocytes # (Auto) 2.6 x10^3/uL (1.0-4.8) Monocytes # (Auto) 1.3 x10^3/uL (0.0-1.1) Eosinophils # (Auto) 0.1 x10^3/uL (0.0-0.7) Basophils # (Auto) 0.1 x10^3/uL (0.0-0.2) Prothrombin Time 13.6 SEC (11.7-14.0) Prothromb Time International Ratio 1.1 (0.8-1.1) Sodium Level 145 mmol/L (136-145) Potassium Level 2.5 mmol/L (3.5-5.1) Chloride Level 110 mmol/L (98-107) Carbon Dioxide Level 21 mmol/L (21-32) Anion Gap 14 (6-14) Blood Urea Nitrogen 5 mg/dL (7-20) Creatinine 1.2 mg/dL (0.6-1.0) Estimated GFR (Cockcroft-Gault) 50.8 Glucose Level 122 mg/dL (70-99) Calcium Level 6.4 mg/dL (8.5-10.1) Ionized Calcium 0.90 mmol/L (1.13-1.32) Phosphorus Level 4.0 mg/dL (2.6-4.7) Magnesium Level 2.1 mg/dL (1.8-2.4) Test 12/08/20 22:30 12/09/20 05:15 12/09/20 08:00 12/09/20 08:39 Sodium Level 141 mmol/L (136-145) 143 mmol/L (136-145) Potassium Level 3.7 mmol/L (3.5-5.1) 4.3 mmol/L (3.5-5.1) Chloride Level 110 mmol/L (98-107) 110 mmol/L (98-107) Carbon Dioxide Level 21 mmol/L (21-32) 20 mmol/L (21-32) Anion Gap 10 (6-14) 13 (6-14) Blood Urea Nitrogen 5 mg/dL (7-20) 4 mg/dL (7-20) Creatinine 1.4 mg/dL (0.6-1.0) 1.5 mg/dL (0.6-1.0) Estimated GFR (Cockcroft-Gault) 42.5 39.3 Glucose Level 186 mg/dL (70-99) 149 mg/dL (70-99) Calcium Level 6.8 mg/dL (8.5-10.1) 7.2 mg/dL (8.5-10.1) White Blood Count 16.7 x10^3/uL (4.0-11.0) Red Blood Count 3.36 x10^6/uL (3.50-5.40) Hemoglobin 10.9 g/dL (12.0-15.5) Hematocrit 33.0 % (36.0-47.0) Mean Corpuscular Volume 98 fL (79-100) Mean Corpuscular Hemoglobin 33 pg (25-35) Mean Corpuscular Hemoglobin Concent 33 g/dL (31-37) Red Cell Distribution Width 19.1 % (11.5-14.5) Platelet Count 240 x10^3/uL (140-400) Neutrophils (%) (Auto) 86 % (31-73) Lymphocytes (%) (Auto) 9 % (24-48) Monocytes (%) (Auto) 5 % (0-9) Eosinophils (%) (Auto) 0 % (0-3) Basophils (%) (Auto) 0 % (0-3) Neutrophils # (Auto) 14.3 x10^3/uL (1.8-7.7) Lymphocytes # (Auto) 1.4 x10^3/uL (1.0-4.8) Monocytes # (Auto) 0.9 x10^3/uL (0.0-1.1) Eosinophils # (Auto) 0.0 x10^3/uL (0.0-0.7) Basophils # (Auto) 0.0 x10^3/uL (0.0-0.2) Magnesium Level 2.6 mg/dL (1.8-2.4) Thyroid Stimulating Hormone (TSH) 0.592 uIU/mL (0.358-3.74) O2 Saturation 99 % (92-99) Arterial Blood pH 7.35 (7.35-7.45) Arterial Blood pCO2 at Patient Temp 36 mmHg (35-46) Arterial Blood pO2 at Patient Temp 146 mmHg (85-108) Arterial Blood HCO3 20 mmol/L (21-28) Arterial Blood Base Excess -5 mmol/L (-3-3) FiO2 35% vent Glucose (Fingerstick) 112 mg/dL (70-99) Assessment/Plan Assessment/Plan IMP TIA-ATN VFIB HYPOKALEMIA HYPOMAGNESEMIA ACUTE RESP FAILURE LEUCOCYTOSIS HYPOTENSION GASTROPARESIS WITH N/V PLAN ID, PULM AND CARD EVALUATION HYDRATION CORRECT ELECTROLYTES FOR NOW WILL FOLLOW FAHAD CARTY MD Dec 09, 2020 11:59
[2020-12-09] MEDS: POTASSIUM CL 20MEQ D5-0.45NACL 1,000 ML IV SCH (12:59)
[2020-12-09] MEDS ORDERED: ONDANSETRON PF 4 MG/2 ML VIAL. IVP PRN (13:45)
[2020-12-09] MEDS ORDERED: CALCIUM GLUCONATE 1,000 MG in IV NORMAL SALINE 100ML 100 ML IV ONE (14:00)
[2020-12-09] MEDS ORDERED: PROMETHAZINE 12.5 MG TABLET. PO PRN ×2 (15:30→16:45)
--- NOTE | 2020-12-09 16:23 | NUR ---
SS following up with discharge planning. SS reviewed pt chart and discussed with pt RN. Pt extubated now and is currently on room air. COVID19 negative. Pt on IV Cefepime. PT/OT/ST ordered. SS will continue to follow for discharge planning.
[2020-12-09] MEDS: PROCHLORPERAZINE 10 MG/2 ML VIAL. IV PRN (17:15)
[2020-12-10] VITALS (8 sets, daily range): BP systolic 128–169; BP diastolic 85–104
[2020-12-10] MEDS: POTASSIUM CL 20MEQ D5-0.45NACL 1,000 ML IV SCH ×2 (01:52→16:27)
[2020-12-10] MEDS: PROCHLORPERAZINE 10 MG/2 ML VIAL. IV PRN ×3 (03:09→18:46)
--- NOTE | 2020-12-10 06:25 | PDOC ---
PULMONARY PROGRESS NOTES DATE: 12/10/20 TIME: 06:24 Subjective on 02 denies sob cough wants to go home Vitals Vital Signs Date Time Temp Pulse Resp B/P (MAP) Pulse Ox O2 Delivery O2 Flow Rate FiO2 12/10/20 04:00 98.5 95 14 129/85 (100) 98 Room Air 98.5 General: Alert, No acute distress Lungs: Clear Cardiovascular: S1, S2 Abdomen: Soft Neuro Exam: Alert Extremities: Other (No significant edema) Skin: Warm Labs Laboratory Tests Test 12/08/20 07:22 12/08/20 07:50 12/08/20 08:30 12/08/20 08:35 Glucose (Fingerstick) 88 mg/dL (70-99) 79 mg/dL (70-99) O2 Saturation 99 % (92-99) Arterial Blood pH 7.36 (7.35-7.45) Arterial Blood pH (Temp corrected) 7.40 Arterial Blood pCO2 at Patient Temp 40 mmHg (35-46) Arterial Blood pCO2 (Temp correct) 35 mmHg Arterial Blood pO2 at Patient Temp 148 mmHg (85-108) Arterial Blood pO2 (Temp corrected) 130 mmHg Arterial Blood HCO3 22 mmol/L (21-28) Arterial Blood Base Excess -3 mmol/L (-3-3) FiO2 35/vent Potassium Level 2.8 mmol/L (3.5-5.1) SARS-CoV-2 RNA (RICK) Negative (Negative) Test 12/08/20 09:00 12/08/20 09:48 12/08/20 10:52 12/08/20 11:41 SARS-CoV-2 Antigen (Rapid) Negative (NEGATIVE) Glucose (Fingerstick) 51 mg/dL (70-99) 183 mg/dL (70-99) 123 mg/dL (70-99) Test 12/08/20 12:00 12/08/20 12:30 12/08/20 12:53 12/08/20 13:27 Procalcitonin 0.13 ng/mL (0.00-0.10) Free Thyroxine 1.00 ng/dL (0.76-1.46) HIV (1&2) Antibody Screen Nonreactive (Nonreactive) White Blood Count 10.5 x10^3/uL (4.0-11.0) Red Blood Count 3.31 x10^6/uL (3.50-5.40) Hemoglobin 10.7 g/dL (12.0-15.5) Hematocrit 32.1 % (36.0-47.0) Mean Corpuscular Volume 97 fL (79-100) Mean Corpuscular Hemoglobin 33 pg (25-35) Mean Corpuscular Hemoglobin Concent 34 g/dL (31-37) Red Cell Distribution Width 18.5 % (11.5-14.5) Platelet Count 196 x10^3/uL (140-400) Neutrophils (%) (Auto) 65 % (31-73) Lymphocytes (%) (Auto) 22 % (24-48) Monocytes (%) (Auto) 11 % (0-9) Eosinophils (%) (Auto) 1 % (0-3) Basophils (%) (Auto) 0 % (0-3) Neutrophils # (Auto) 6.8 x10^3/uL (1.8-7.7) Lymphocytes # (Auto) 2.3 x10^3/uL (1.0-4.8) Monocytes # (Auto) 1.2 x10^3/uL (0.0-1.1) Eosinophils # (Auto) 0.1 x10^3/uL (0.0-0.7) Basophils # (Auto) 0.0 x10^3/uL (0.0-0.2) Prothrombin Time 13.8 SEC (11.7-14.0) Prothromb Time International Ratio 1.1 (0.8-1.1) Sodium Level 148 mmol/L (136-145) Potassium Level 2.2 mmol/L (3.5-5.1) Chloride Level 112 mmol/L (98-107) Carbon Dioxide Level 24 mmol/L (21-32) Anion Gap 12 (6-14) Blood Urea Nitrogen 5 mg/dL (7-20) Creatinine 1.2 mg/dL (0.6-1.0) Estimated GFR (Cockcroft-Gault) 50.8 Glucose Level 80 mg/dL (70-99) Calcium Level 6.7 mg/dL (8.5-10.1) Ionized Calcium 0.99 mmol/L (1.13-1.32) Phosphorus Level 2.7 mg/dL (2.6-4.7) Magnesium Level 2.5 mg/dL (1.8-2.4) Glucose (Fingerstick) 86 mg/dL (70-99) Cortisol PM Sample 2.0 ug/dL (3.1-16.7) Test 12/08/20 13:48 12/08/20 15:29 12/08/20 17:04 12/08/20 17:29 Glucose (Fingerstick) 88 mg/dL (70-99) 80 mg/dL (70-99) 117 mg/dL (70-99) White Blood Count 13.8 x10^3/uL (4.0-11.0) Red Blood Count 3.37 x10^6/uL (3.50-5.40) Hemoglobin 10.9 g/dL (12.0-15.5) Hematocrit 33.0 % (36.0-47.0) Mean Corpuscular Volume 98 fL (79-100) Mean Corpuscular Hemoglobin 32 pg (25-35) Mean Corpuscular Hemoglobin Concent 33 g/dL (31-37) Red Cell Distribution Width 19.2 % (11.5-14.5) Platelet Count 231 x10^3/uL (140-400) Neutrophils (%) (Auto) 70 % (31-73) Lymphocytes (%) (Auto) 19 % (24-48) Monocytes (%) (Auto) 9 % (0-9) Eosinophils (%) (Auto) 1 % (0-3) Basophils (%) (Auto) 1 % (0-3) Neutrophils # (Auto) 9.7 x10^3/uL (1.8-7.7) Lymphocytes # (Auto) 2.6 x10^3/uL (1.0-4.8) Monocytes # (Auto) 1.3 x10^3/uL (0.0-1.1) Eosinophils # (Auto) 0.1 x10^3/uL (0.0-0.7) Basophils # (Auto) 0.1 x10^3/uL (0.0-0.2) Prothrombin Time 13.6 SEC (11.7-14.0) Prothromb Time International Ratio 1.1 (0.8-1.1) Sodium Level 145 mmol/L (136-145) Potassium Level 2.5 mmol/L (3.5-5.1) Chloride Level 110 mmol/L (98-107) Carbon Dioxide Level 21 mmol/L (21-32) Anion Gap 14 (6-14) Blood Urea Nitrogen 5 mg/dL (7-20) Creatinine 1.2 mg/dL (0.6-1.0) Estimated GFR (Cockcroft-Gault) 50.8 Glucose Level 122 mg/dL (70-99) Calcium Level 6.4 mg/dL (8.5-10.1) Ionized Calcium 0.90 mmol/L (1.13-1.32) Phosphorus Level 4.0 mg/dL (2.6-4.7) Magnesium Level 2.1 mg/dL (1.8-2.4) Test 12/08/20 22:30 12/09/20 05:15 12/09/20 08:00 12/09/20 08:39 Sodium Level 141 mmol/L (136-145) 143 mmol/L (136-145) Potassium Level 3.7 mmol/L (3.5-5.1) 4.3 mmol/L (3.5-5.1) Chloride Level 110 mmol/L (98-107) 110 mmol/L (98-107) Carbon Dioxide Level 21 mmol/L (21-32) 20 mmol/L (21-32) Anion Gap 10 (6-14) 13 (6-14) Blood Urea Nitrogen 5 mg/dL (7-20) 4 mg/dL (7-20) Creatinine 1.4 mg/dL (0.6-1.0) 1.5 mg/dL (0.6-1.0) Estimated GFR (Cockcroft-Gault) 42.5 39.3 Glucose Level 186 mg/dL (70-99) 149 mg/dL (70-99) Calcium Level 6.8 mg/dL (8.5-10.1) 7.2 mg/dL (8.5-10.1) White Blood Count 16.7 x10^3/uL (4.0-11.0) Red Blood Count 3.36 x10^6/uL (3.50-5.40) Hemoglobin 10.9 g/dL (12.0-15.5) Hematocrit 33.0 % (36.0-47.0) Mean Corpuscular Volume 98 fL (79-100) Mean Corpuscular Hemoglobin 33 pg (25-35) Mean Corpuscular Hemoglobin Concent 33 g/dL (31-37) Red Cell Distribution Width 19.1 % (11.5-14.5) Platelet Count 240 x10^3/uL (140-400) Neutrophils (%) (Auto) 86 % (31-73) Lymphocytes (%) (Auto) 9 % (24-48) Monocytes (%) (Auto) 5 % (0-9) Eosinophils (%) (Auto) 0 % (0-3) Basophils (%) (Auto) 0 % (0-3) Neutrophils # (Auto) 14.3 x10^3/uL (1.8-7.7) Lymphocytes # (Auto) 1.4 x10^3/uL (1.0-4.8) Monocytes # (Auto) 0.9 x10^3/uL (0.0-1.1) Eosinophils # (Auto) 0.0 x10^3/uL (0.0-0.7) Basophils # (Auto) 0.0 x10^3/uL (0.0-0.2) Magnesium Level 2.6 mg/dL (1.8-2.4) Thyroid Stimulating Hormone (TSH) 0.592 uIU/mL (0.358-3.74) O2 Saturation 99 % (92-99) Arterial Blood pH 7.35 (7.35-7.45) Arterial Blood pCO2 at Patient Temp 36 mmHg (35-46) Arterial Blood pO2 at Patient Temp 146 mmHg (85-108) Arterial Blood HCO3 20 mmol/L (21-28) Arterial Blood Base Excess -5 mmol/L (-3-3) FiO2 35% vent Glucose (Fingerstick) 112 mg/dL (70-99) Test 12/09/20 17:34 Glucose (Fingerstick) 116 mg/dL (70-99) Laboratory Tests Test 12/09/20 08:00 12/09/20 08:39 12/09/20 17:34 O2 Saturation 99 % (92-99) Arterial Blood pH 7.35 (7.35-7.45) Arterial Blood pCO2 at Patient Temp 36 mmHg (35-46) Arterial Blood pO2 at Patient Temp 146 mmHg (85-108) Arterial Blood HCO3 20 mmol/L (21-28) Arterial Blood Base Excess -5 mmol/L (-3-3) FiO2 35% vent Glucose (Fingerstick) 112 mg/dL (70-99) 116 mg/dL (70-99) Medications Active Scripts Medications Dose Route/Sig Max Daily Dose Days Date Category Vancomycin Hcl 125 Mg Capsule 1 Cap PO QID 10 06/12/20 Rx Fenofibrate (Fenofibrate,Micronized) 134 Mg Capsule 134 Mg PO DAILY 05/25/20 Reported Potassium Chloride (Potassium Chloride) 20 Meq Tablet.er 20 Meq PO BIDAC 30 05/07/20 Rx Reglan (Metoclopramide Hcl) 10 Mg Tablet 10 Mg PO TID PRN 03/28/20 Rx Compazine (Prochlorperazine Maleate) 10 Mg Tablet 1 Tab PO Q6HRS 03/26/20 Rx Ondansetron Odt (Ondansetron) 4 Mg Tab.rapdis 1 Tab PO PRN Q6-8HRS 03/24/20 Rx Nexium Capsule (Esomeprazole Magnesium) 40 Mg Capsule. 1 Cap PO DAILY 03/20/20 Reported Amitriptyline Hcl 10 Mg Tablet 1 Tab PO QHS 90 05/27/19 Rx Celexa (Citalopram Hydrobromide) 20 Mg Tablet 1 Tab PO QHS 05/27/19 Rx Comments cxr 12/09 stable Impression . IMPRESSION: 1. Acute respiratory failure secondary to cardiac arrest. on RA now 2. Ventricular fibrillation cardiac arrest requiring 10 minutes of advanced cardiac life support protocol with return of spontaneous circulation. Unclear etiology. 3. Severe hypokalemia, corrected 4. Severe hypophosphatemia, corrected 5. Mildly increased bilirubin 6. History of hepatic steatosis. 7. History of tobacco use. 8. Low Mg 9. SARS-CoV-2 negative 10. Leukocytosis suspect reactive Echo report Critical Value: No <Conclusion> The left ventricular systolic function is normal. The Ejection Fraction is 55%. There is normal LV segmental wall motion. Trace mitral regurgitation. Trace tricuspid regurgitation with an estimated PAP of 22 mmHg. There is no evidence of significant pericardial effusion. Plan . Updated 12/10 0n RA cardiology recommended cardiac cath she declined electrolytes corrected hep sq for dvt prophylaxis Discussed with RN Updated 12/09 Patient currently doing well on CPAP trial fully awake will proceed with extubation Appreciate cardiology input We will continue current support electrolytes corrected Discussed with RT and RN and Total cumulative critical care time of 30 minutes, reviewing the current documentation, examining the patient. Reviewing labs chest x-ray EKG. And formulating a plan Updated 12/08 Patient currently being rewarmed Appreciate cardiology input We will continue current support I suspect patient will awaken once she is warmed up, Discussed with RT and RN and Total cumulative critical care time of 30 minutes, reviewing the current documentation, examining the patient. Reviewing labs chest x-ray EKG. And formulating a plan 12/07 1. Continue present assist control mode. Follow ABGs and make necessary adjustment. 2. Continue hypothermic protocol. 3. Cardiology consultation and will consider need for cardiac catheterization. 4. Deep venous thrombosis prophylaxis with heparin. 5. Obtain D-dimers. 6. Stress ulcer prophylaxis. 7. Once hypothermic protocol is over, we will assess for mental status to make sure she does not have any anoxic brain injury. 8. We will not need an echocardiogram. 9. Discussed with RN /RT , Patients father and Cardiology. cath soon Total critical care time 40 minutes including review of the chart, imaging studies, lab, assessment and decision making. MARINA LEA MD Dec 10, 2020 06:25
[2020-12-10 08:09] LABS: BASO # 0.1 x10^3/uL (0.0-0.2); BASO % 0 % (0-3); EOS % 0 % (0-3); HEMATOCRIT 30.6 % (36.0-47.0); HEMOGLOBIN 10.3 g/dL (12.0-15.5); LYMPH # 2.4 x10^3/uL (1.0-4.8); LYMPH % 18 % (24-48); MEAN CORPUSCULAR HEMOGLOBIN 33 pg (25-35); MEAN CORPUSCULAR HGB CONC 34 g/dL (31-37); MEAN CORPUSCULAR VOLUME 99 fL (79-100); MONO # 0.9 x10^3/uL (0.0-1.1); MONO % 6 % (0-9); NEUT # 10.3 x10^3/uL (1.8-7.7); NEUT % 76 % (31-73); PLATELET COUNT 212 x10^3/uL (140-400); RED CELL DISTRIBUTION WIDTH 19.6 % (11.5-14.5); WHITE BLOOD COUNT 13.7 x10^3/uL (4.0-11.0)
[2020-12-10 08:23] LABS: ALBUMIN 2.5 g/dL (3.4-5.0); ALBUMIN/GLOBULIN RATIO 0.8 (1.0-1.7); CALCIUM 8.1 mg/dL (8.5-10.1); CREATININE 1.2 mg/dL (0.6-1.0); GFR 50.8; POTASSIUM 3.9 mmol/L (3.5-5.1); TOTAL BILIRUBIN 0.4 mg/dL (0.2-1.0); TOTAL PROTEIN 5.5 g/dL (6.4-8.2)
--- NOTE | 2020-12-10 08:53 | PDOC ---
Infectious Disease Note Subjective: Subjective Sleepy but arousable Continues to have nausea Some dry cough Has some chest wall pain Denies vomiting, diarrhea, abdominal pain Vital Signs: Vital Signs Vital Signs Date Time Temp Pulse Resp B/P (MAP) Pulse Ox O2 Delivery O2 Flow Rate FiO2 12/10/20 08:00 98.3 80 149/95 (113) 96 Room Air 98.3 12/10/20 04:00 14 Physical Exam: PHYSICAL EXAM GENERAL: Alert awake comfortable in no acute distress HEENT: Normocephalic, atraumatic NECK: Supple, full range of motion. No lymphadenopathy. LUNGS: Decreased breath sound at bases HEART: S1, S2, no murmurs. ABDOMEN: Soft, nontender, nondistended. GENITOURINARY: Hendrickson in place. EXTREMITIES: No edema, no cyanosis. DERMATOLOGIC: Warm, dry. No generalized rash. Multiple tattoos. NEUROLOGIC: Somnolent but arousable moves all 4 extremities LINES: Right art line removed PIV looks clean. Medications: Inpatient Meds: Medications reviewed. Labs: Lab Laboratory Tests Test 12/09/20 17:34 12/10/20 07:55 Glucose (Fingerstick) 116 mg/dL (70-99) White Blood Count 13.7 x10^3/uL (4.0-11.0) Red Blood Count 3.10 x10^6/uL (3.50-5.40) Hemoglobin 10.3 g/dL (12.0-15.5) Hematocrit 30.6 % (36.0-47.0) Mean Corpuscular Volume 99 fL (79-100) Mean Corpuscular Hemoglobin 33 pg (25-35) Mean Corpuscular Hemoglobin Concent 34 g/dL (31-37) Red Cell Distribution Width 19.6 % (11.5-14.5) Platelet Count 212 x10^3/uL (140-400) Neutrophils (%) (Auto) 76 % (31-73) Lymphocytes (%) (Auto) 18 % (24-48) Monocytes (%) (Auto) 6 % (0-9) Eosinophils (%) (Auto) 0 % (0-3) Basophils (%) (Auto) 0 % (0-3) Neutrophils # (Auto) 10.3 x10^3/uL (1.8-7.7) Lymphocytes # (Auto) 2.4 x10^3/uL (1.0-4.8) Monocytes # (Auto) 0.9 x10^3/uL (0.0-1.1) Eosinophils # (Auto) 0.0 x10^3/uL (0.0-0.7) Basophils # (Auto) 0.1 x10^3/uL (0.0-0.2) Sodium Level 148 mmol/L (136-145) Potassium Level 3.9 mmol/L (3.5-5.1) Chloride Level 110 mmol/L (98-107) Carbon Dioxide Level 24 mmol/L (21-32) Anion Gap 14 (6-14) Blood Urea Nitrogen 6 mg/dL (7-20) Creatinine 1.2 mg/dL (0.6-1.0) Estimated GFR (Cockcroft-Gault) 50.8 BUN/Creatinine Ratio 5 (6-20) Glucose Level 113 mg/dL (70-99) Calcium Level 8.1 mg/dL (8.5-10.1) Total Bilirubin 0.4 mg/dL (0.2-1.0) Aspartate Amino Transf (AST/SGOT) 36 U/L (15-37) Alanine Aminotransferase (ALT/SGPT) 27 U/L (14-59) Alkaline Phosphatase 65 U/L (46-116) Total Protein 5.5 g/dL (6.4-8.2) Albumin 2.5 g/dL (3.4-5.0) Albumin/Globulin Ratio 0.8 (1.0-1.7) Objective: Assessment: 1. Acute hypoxic respiratory failure secondary to cardiac arrest. 2. V-Fib cardiac arrest, status post CPR. 3. Severe hypokalemia, hypomagnesemia, hypophosphatemia, hypocalcemia. 4. Nausea ,Vomitting, Mild increased bilirubin level. 5. Pyuria urine cultures negative so far 6. History of tobacco use. 7. Encephalopathy appears multifactorial, no clinical evidence of meningitis 8. Leukocytosis likely reactive and now on steroids 9. Nausea and vomiting prior to admission. 10. History of Kong's esophagus, reflux esophagitis, hepatic steatosis, Clostridium difficile colitis. 11. History of left groin abscess with MRSA, Peptostreptococcus beta-lactam is negative. Plan: Plan of Care 1. Continue cefepime for now. 2. Follow cultures and lab. 3. Continue supportive care. 4. Maintain lines. 5. Maintain aspiration precaution. Discussed with nursing staff. CARINE MIR MD Dec 10, 2020 08:53
--- NOTE | 2020-12-10 08:55 | PDOC ---
PROGRESS NOTES Date of Service: DATE: 12/10/20 TIME: 08:55 Chief Complaint Chief Complaint Images Images Chest radiograph interpretation: There is an ET tube with its tip at level clavicles. There is an enteric tube seen at least as far distal as the mid stomach. The heart and pulmonary vessels appear normal. The lungs and pleural margins are clear. Impression: ET tube and enteric tube well-positioned. VTE Prophylaxis Ordered VTE Prophylaxis Devices: No VTE Pharmacological Prophylaxi: Yes Assessment/Plan Assessment/Plan IMPRESSION Anoxic encephalopathy post torsades and ventricular fibrillation, rewarmed from hypothermia, improved, extubated Ventricular fibrillation Cardiac arrest -likely due to torsades with prolonged QT worsened by hypokalemia, hypomagnesemia as well as Reglan and Haldol administration. Hypokalemia -replace IV loss likely due to 4 days of persistent vomiting , however need to consider other causes SUCH as adrenal insufficiency Gastroparesis with Nausea and vomiting -has not tolerated erythromycin in the past and will with this event Reglan may need to be substituted. GI consulted Prolonged QT interval -worsened by hypokalemia hypomagnesemia and prolonged Regl an use. Hypomagnesemia -replaced due to torsades SEPSIS khalida Osteoarthritis bilateral ankles -has outpatient orthopedic follow-up Anxiety with depression -we will hold SSRI while patient is on ventilator. Respiratory failure - due to cardiac arrest. No pulmonary history. Pulmonology consulted No intracranial hemorrhage. No mass effect. No hydrocephalus OCC THC use EKG with RBBB and QT prolongation with QTc of 506. Mg 1.6 and K 2.5 upon arrival. Acute respiratory failure secondary to cardiac arrest; s/p extubation. DAY 2 History of Kong's esophagus, reflux esophagitis, hepatic steatosis, Clostridium difficile colitis. History of remote left groin abscess with MRSA, Peptostreptococcus beta-lactam is negative. ADRENAL INSUFFICIENCY PLAN admit ICU BED FEN - NPO PPX - pepcid, lovenox FULL CODE Dispo - ICU for cardiac arrest mrsa screen neg og placement iv hydrocortisone 100mg q 12 hrs 24 hr urine for k random urine k ACTH CONT IV CEFIPIME BID IV CALCIUM GLUCONATE 1 GM X 1 4-16 vit D TOTAL LEVEL, SERUM BEGIN OSCAL D 500 PO BID CC time 35 minutes Justifications for Admission Justifications for Admission Other Justification History of Present Illness History of Present Illness Identification/Chief Complaint Chief Complaint Nausea and vomiting Source Source: Caregiver, Chart review History of Present Illness History of Present Illness Ms Lafleur is a 35yo F w/ PMHx Anxiety, Depression, GERD, barrets, High Cholesterol, gastroparesis, OA bilateral ankles, smoker who presented to the ED c/o intractable nausea and vomiting that progressed over the past 3 days to the point she was unable to hold down liquids or her reglan. She reported to ED she had more than 5 bouts of emesis per day. Labs significant for WBC 15.1, Hb 14.9, platelets 338, NA 138, K2.5, magnesium 1.6, BUN 5, CR 1, glucose 141, bilirubin 1.1, AST 67, lipase 57. She was given a bolus of lactated Ringer's and IV Reglan. No significant improvement and was given 5 mg IV Haldol. EKG was sinus tachycardia 153 bpm, prolonged QRS at 128, prolonged QTC at 506, right axis deviation, no STEMI CODE BLUE was called around 05 100 when cafeteria monitor. With torsades which converted to ventricular fibrillation. Patient was given IV magnesium and two 200 J shocks with ROSC. Patient was intubated during cardiac arrest and started on propofol and potassium GTT. She was not completely sedated on propofol and Versed was added. Patient seen by myself sedated on ventilator in ED. Chest radiograph with ET tube and OGT in appropriate position. Admitted ICU for further care. Past Medical History Cardiovascular: Hyperlipidemia Pulmonary: No pertinent hx GI: GERD, Other Heme/Onc: No pertinent hx Hepatobiliary: No pertinent hx Psych: Anxiety, Depression Rheumatologic: No pertinent hx Infectious disease: Other Renal/: No pertinent hx Endocrine: No pertinent hx Past Surgical History Past Surgical History: Cholecystectomy, Other Family History Family History: Family History Unknown Social History Smoke: <1 pack per day ALCOHOL: other Drugs: Marijuana Current Problem List Problem List Problems Medical Problems: (1) Cardiac arrest Status: Acute (2) Hypokalemia Status: Acute (3) Hypomagnesemia Status: Acute (4) Nausea and vomiting Status: Acute (5) Prolonged QT interval Status: Acute Current Medications Current Medications Current Medications Ringer's Solution 500 ml @ 500 mls/hr 1X ONCE IV ; Start 12/07/20 at 05:00; Stop 12/07/20 at 05:59; Status DC Ringer's Solution 500 ml @ 500 mls/hr 1X ONCE IV ; Start 12/07/20 at 05:00; Stop 12/07/20 at 05:59; Status DC Metoclopramide HCl (Reglan Vial) 10 mg 1X ONCE IVP ; Start 12/07/20 at 05:30; Stop 12/07/20 at 05:05; Status DC Ringer's Solution 500 ml @ 500 mls/hr 1X ONCE IV ; Start 12/07/20 at 05:30; Stop 12/07/20 at 06:29; Status DC Haloperidol Lactate (Haldol Inj) 5 mg STK-MED ONCE .ROUTE ; Start 12/07/20 at 05:05; Stop 12/07/20 at 05:05; Status DC Haloperidol Lactate (Haldol Inj) 5 mg 1X ONCE IVP Last administered on 12/07/20at 05:14; Start 12/07/20 at 05:30; Stop 12/07/20 at 05:31; Status DC Diphenhydramine HCl (Benadryl) 50 mg 1X ONCE IVP Last administered on 12/07/20at 05:14; Start 12/07/20 at 05:30; Stop 12/07/20 at 05:31; Status DC Ringer's Solution 500 ml @ 1,000 mls/hr 1X ONCE IV Last administered on 12/07/20at 05:13; Start 12/07/20 at 05:30; Stop 12/07/20 at 05:59; Status DC Propofol 100 ml @ As Directed STK-MED ONCE IV ; Start 12/07/20 at 05:56; Stop 12/07/20 at 05:56; Status DC Potassium Chloride/Sodium Chloride 1,000 ml @ 125 mls/hr Q8H IV Last administered on 12/07/20at 06:30; Start 12/07/20 at 06:30; Stop 12/07/20 at 14:29 Midazolam HCl (Versed) 5 mg STK-MED ONCE .ROUTE ; Start 12/07/20 at 06:29; Stop 12/07/20 at 06:30; Status DC Fentanyl Citrate 30 ml @ 0 mls/hr CONT PRN IV SEE PROTOCOL; Start 12/07/20 at 07:00 Chlorhexidine Gluconate (Peridex) 15 ml BID MM ; Start 12/07/20 at 09:00 Midazolam HCl 100 ml @ 0 mls/hr CONT PRN IV SEE PROTOCOL Last administered on 12/07/20at 07:15; Start 12/07/20 at 07:00 Magnesium Sulfate 100 ml @ 25 mls/hr 1X ONCE IV ; Start 12/07/20 at 07:30; Stop 12/07/20 at 11:29; Status UNV Famotidine (Pepcid Vial) 20 mg BID IVP ; Start 12/07/20 at 09:00; Status UNV Active Scripts Active Vancomycin Hcl 125 Mg Capsule 1 Cap PO QID 10 Days Potassium Chloride (Potassium Chloride) 20 Meq Tablet.er 20 Meq PO BIDAC 30 Days Reglan (Metoclopramide Hcl) 10 Mg Tablet 10 Mg PO TID PRN Compazine (Prochlorperazine Maleate) 10 Mg Tablet 1 Tab PO Q6HRS Ondansetron Odt (Ondansetron) 4 Mg Tab.rapdis 1 Tab PO PRN Q6-8HRS Amitriptyline Hcl 10 Mg Tablet 1 Tab PO QHS 90 Days Celexa (Citalopram Hydrobromide) 20 Mg Tablet 1 Tab PO QHS Reported Fenofibrate (Fenofibrate,Micronized) 134 Mg Capsule 134 Mg PO DAILY Nexium Capsule (Esomeprazole Magnesium) 40 Mg Capsule.dr 1 Cap PO DAILY Allergies Allergies: Coded Allergies: Corticosteroids (Glucocorticoids) (Verified Allergy, Severe, facial swelling, 05/25/20) Penicillins (Verified Allergy, Intermediate, hives, 05/25/20) I S O L A T I O N *CONTACT* (Verified Allergy, Unknown, 06/03/19) mrsa hydrocodone (Verified Adverse Reaction, Mild, Nausea, 05/25/20) Acute respiratory failure secondary to cardiac arrest; s/p extubation. Pulmonary team following. 4-17 Hypokalemia -replace IV loss likely due to 4 days of persistent vomiting , however need to consider other causes SUCH as adrenal insufficiency k better , continue iv cefipime off vent, awake , cxr stable, afebrile ca 7.2 new consults ID, Nephrology TRY promethazine supp 25 mg prn q 6 hrs CC time 32 minutes 4-16 Hypokalemia -replace IV loss likely due to 4 days of persistent vomiting , however need to consider other causes SUCH as adrenal insufficiency k better , continue iv cefipime off vent, awake , cxr stable, afebrile ca 7.2 new consults ID, Nephrology CC time 35 minutes Vitals Vitals Vital Signs Date Time Temp Pulse Resp B/P (MAP) Pulse Ox O2 Delivery O2 Flow Rate FiO2 12/10/20 08:00 98.3 80 149/95 (113) 96 Room Air 98.3 12/10/20 04:00 14 Physical Exam Physical Exam GENERAL: HEENT: Normocephalic, atraumatic NECK: Supple, full range of motion. No lymphadenopathy. LUNGS: Clear. HEART: S1, S2, no murmurs. ABDOMEN: Soft, nontender, nondistended. GENITOURINARY: Hendrickson in place. EXTREMITIES: No edema, no cyanosis. DERMATOLOGIC: Warm, dry. No generalized rash. Multiple tattoos. NEUROLOGIC: Intubated, opens eyes, restless. Moves all 4 extremities. LINES: Right art line looks clean, PIV looks clean. General: Alert, Oriented X3, Cooperative, No acute distress Heart: Regular rate, Normal S1, Normal S2, No murmurs, Other Lungs: Clear Abdomen: Normal bowel sounds, Soft, No tenderness Extremities: No clubbing, No cyanosis Skin: No breakdown Labs LABS Procedure Result URINE CULTURE Final Final No Growth on 12/08/20 at 0917 Testing Performed by: [address] [id number] For Inquires, the Physician may contact the Microbiology department at [phone] Unless otherwise specified, Testing Performed by: [address] [id number] For Inquires, the Physician may contact the Microbiology department at [phone] FAHAD CARTY MD,VISHAL YANES,SHARMAINE KEANE,SHAKA Sebastian MD ORDERED: BCULT --- --------- Procedure Result BLOOD CULTURE Preliminary NO GROWTH AFTER 1 DAY Laboratory Tests Test 12/09/20 17:34 12/10/20 07:55 Glucose (Fingerstick) 116 mg/dL (70-99) White Blood Count 13.7 x10^3/uL (4.0-11.0) Red Blood Count 3.10 x10^6/uL (3.50-5.40) Hemoglobin 10.3 g/dL (12.0-15.5) Hematocrit 30.6 % (36.0-47.0) Mean Corpuscular Volume 99 fL (79-100) Mean Corpuscular Hemoglobin 33 pg (25-35) Mean Corpuscular Hemoglobin Concent 34 g/dL (31-37) Red Cell Distribution Width 19.6 % (11.5-14.5) Platelet Count 212 x10^3/uL (140-400) Neutrophils (%) (Auto) 76 % (31-73) Lymphocytes (%) (Auto) 18 % (24-48) Monocytes (%) (Auto) 6 % (0-9) Eosinophils (%) (Auto) 0 % (0-3) Basophils (%) (Auto) 0 % (0-3) Neutrophils # (Auto) 10.3 x10^3/uL (1.8-7.7) Lymphocytes # (Auto) 2.4 x10^3/uL (1.0-4.8) Monocytes # (Auto) 0.9 x10^3/uL (0.0-1.1) Eosinophils # (Auto) 0.0 x10^3/uL (0.0-0.7) Basophils # (Auto) 0.1 x10^3/uL (0.0-0.2) Sodium Level 148 mmol/L (136-145) Potassium Level 3.9 mmol/L (3.5-5.1) Chloride Level 110 mmol/L (98-107) Carbon Dioxide Level 24 mmol/L (21-32) Anion Gap 14 (6-14) Blood Urea Nitrogen 6 mg/dL (7-20) Creatinine 1.2 mg/dL (0.6-1.0) Estimated GFR (Cockcroft-Gault) 50.8 BUN/Creatinine Ratio 5 (6-20) Glucose Level 113 mg/dL (70-99) Calcium Level 8.1 mg/dL (8.5-10.1) Total Bilirubin 0.4 mg/dL (0.2-1.0) Aspartate Amino Transf (AST/SGOT) 36 U/L (15-37) Alanine Aminotransferase (ALT/SGPT) 27 U/L (14-59) Alkaline Phosphatase 65 U/L (46-116) Total Protein 5.5 g/dL (6.4-8.2) Albumin 2.5 g/dL (3.4-5.0) Albumin/Globulin Ratio 0.8 (1.0-1.7) Assessment and Plan Assessmemt and Plan Problems Medical Problems: (1) Cardiac arrest Status: Acute (2) Hypokalemia Status: Acute (3) Hypomagnesemia Status: Acute (4) Nausea and vomiting Status: Acute (5) Prolonged QT interval Status: Acute Comment Review of Relevant I have reviewed the following items josué (where applicable) has been applied. Labs Laboratory Tests Test 12/08/20 09:00 12/08/20 09:48 12/08/20 10:52 12/08/20 11:41 SARS-CoV-2 Antigen (Rapid) Negative (NEGATIVE) Glucose (Fingerstick) 51 mg/dL (70-99) 183 mg/dL (70-99) 123 mg/dL (70-99) Test 12/08/20 12:00 12/08/20 12:30 12/08/20 12:53 12/08/20 13:27 Procalcitonin 0.13 ng/mL (0.00-0.10) Free Thyroxine 1.00 ng/dL (0.76-1.46) HIV (1&2) Antibody Screen Nonreactive (Nonreactive) White Blood Count 10.5 x10^3/uL (4.0-11.0) Red Blood Count 3.31 x10^6/uL (3.50-5.40) Hemoglobin 10.7 g/dL (12.0-15.5) Hematocrit 32.1 % (36.0-47.0) Mean Corpuscular Volume 97 fL (79-100) Mean Corpuscular Hemoglobin 33 pg (25-35) Mean Corpuscular Hemoglobin Concent 34 g/dL (31-37) Red Cell Distribution Width 18.5 % (11.5-14.5) Platelet Count 196 x10^3/uL (140-400) Neutrophils (%) (Auto) 65 % (31-73) Lymphocytes (%) (Auto) 22 % (24-48) Monocytes (%) (Auto) 11 % (0-9) Eosinophils (%) (Auto) 1 % (0-3) Basophils (%) (Auto) 0 % (0-3) Neutrophils # (Auto) 6.8 x10^3/uL (1.8-7.7) Lymphocytes # (Auto) 2.3 x10^3/uL (1.0-4.8) Monocytes # (Auto) 1.2 x10^3/uL (0.0-1.1) Eosinophils # (Auto) 0.1 x10^3/uL (0.0-0.7) Basophils # (Auto) 0.0 x10^3/uL (0.0-0.2) Prothrombin Time 13.8 SEC (11.7-14.0) Prothromb Time International Ratio 1.1 (0.8-1.1) Sodium Level 148 mmol/L (136-145) Potassium Level 2.2 mmol/L (3.5-5.1) Chloride Level 112 mmol/L (98-107) Carbon Dioxide Level 24 mmol/L (21-32) Anion Gap 12 (6-14) Blood Urea Nitrogen 5 mg/dL (7-20) Creatinine 1.2 mg/dL (0.6-1.0) Estimated GFR (Cockcroft-Gault) 50.8 Glucose Level 80 mg/dL (70-99) Calcium Level 6.7 mg/dL (8.5-10.1) Ionized Calcium 0.99 mmol/L (1.13-1.32) Phosphorus Level 2.7 mg/dL (2.6-4.7) Magnesium Level 2.5 mg/dL (1.8-2.4) Glucose (Fingerstick) 86 mg/dL (70-99) Cortisol PM Sample 2.0 ug/dL (3.1-16.7) Test 12/08/20 13:48 12/08/20 15:29 12/08/20 17:04 12/08/20 17:29 Glucose (Fingerstick) 88 mg/dL (70-99) 80 mg/dL (70-99) 117 mg/dL (70-99) White Blood Count 13.8 x10^3/uL (4.0-11.0) Red Blood Count 3.37 x10^6/uL (3.50-5.40) Hemoglobin 10.9 g/dL (12.0-15.5) Hematocrit 33.0 % (36.0-47.0) Mean Corpuscular Volume 98 fL (79-100) Mean Corpuscular Hemoglobin 32 pg (25-35) Mean Corpuscular Hemoglobin Concent 33 g/dL (31-37) Red Cell Distribution Width 19.2 % (11.5-14.5) Platelet Count 231 x10^3/uL (140-400) Neutrophils (%) (Auto) 70 % (31-73) Lymphocytes (%) (Auto) 19 % (24-48) Monocytes (%) (Auto) 9 % (0-9) Eosinophils (%) (Auto) 1 % (0-3) Basophils (%) (Auto) 1 % (0-3) Neutrophils # (Auto) 9.7 x10^3/uL (1.8-7.7) Lymphocytes # (Auto) 2.6 x10^3/uL (1.0-4.8) Monocytes # (Auto) 1.3 x10^3/uL (0.0-1.1) Eosinophils # (Auto) 0.1 x10^3/uL (0.0-0.7) Basophils # (Auto) 0.1 x10^3/uL (0.0-0.2) Prothrombin Time 13.6 SEC (11.7-14.0) Prothromb Time International Ratio 1.1 (0.8-1.1) Sodium Level 145 mmol/L (136-145) Potassium Level 2.5 mmol/L (3.5-5.1) Chloride Level 110 mmol/L (98-107) Carbon Dioxide Level 21 mmol/L (21-32) Anion Gap 14 (6-14) Blood Urea Nitrogen 5 mg/dL (7-20) Creatinine 1.2 mg/dL (0.6-1.0) Estimated GFR (Cockcroft-Gault) 50.8 Glucose Level 122 mg/dL (70-99) Calcium Level 6.4 mg/dL (8.5-10.1) Ionized Calcium 0.90 mmol/L (1.13-1.32) Phosphorus Level 4.0 mg/dL (2.6-4.7) Magnesium Level 2.1 mg/dL (1.8-2.4) Test 12/08/20 22:30 12/09/20 05:15 12/09/20 08:00 12/09/20 08:39 Sodium Level 141 mmol/L (136-145) 143 mmol/L (136-145) Potassium Level 3.7 mmol/L (3.5-5.1) 4.3 mmol/L (3.5-5.1) Chloride Level 110 mmol/L (98-107) 110 mmol/L (98-107) Carbon Dioxide Level 21 mmol/L (21-32) 20 mmol/L (21-32) Anion Gap 10 (6-14) 13 (6-14) Blood Urea Nitrogen 5 mg/dL (7-20) 4 mg/dL (7-20) Creatinine 1.4 mg/dL (0.6-1.0) 1.5 mg/dL (0.6-1.0) Estimated GFR (Cockcroft-Gault) 42.5 39.3 Glucose Level 186 mg/dL (70-99) 149 mg/dL (70-99) Calcium Level 6.8 mg/dL (8.5-10.1) 7.2 mg/dL (8.5-10.1) White Blood Count 16.7 x10^3/uL (4.0-11.0) Red Blood Count 3.36 x10^6/uL (3.50-5.40) Hemoglobin 10.9 g/dL (12.0-15.5) Hematocrit 33.0 % (36.0-47.0) Mean Corpuscular Volume 98 fL (79-100) Mean Corpuscular Hemoglobin 33 pg (25-35) Mean Corpuscular Hemoglobin Concent 33 g/dL (31-37) Red Cell Distribution Width 19.1 % (11.5-14.5) Platelet Count 240 x10^3/uL (140-400) Neutrophils (%) (Auto) 86 % (31-73) Lymphocytes (%) (Auto) 9 % (24-48) Monocytes (%) (Auto) 5 % (0-9) Eosinophils (%) (Auto) 0 % (0-3) Basophils (%) (Auto) 0 % (0-3) Neutrophils # (Auto) 14.3 x10^3/uL (1.8-7.7) Lymphocytes # (Auto) 1.4 x10^3/uL (1.0-4.8) Monocytes # (Auto) 0.9 x10^3/uL (0.0-1.1) Eosinophils # (Auto) 0.0 x10^3/uL (0.0-0.7) Basophils # (Auto) 0.0 x10^3/uL (0.0-0.2) Magnesium Level 2.6 mg/dL (1.8-2.4) Thyroid Stimulating Hormone (TSH) 0.592 uIU/mL (0.358-3.74) O2 Saturation 99 % (92-99) Arterial Blood pH 7.35 (7.35-7.45) Arterial Blood pCO2 at Patient Temp 36 mmHg (35-46) Arterial Blood pO2 at Patient Temp 146 mmHg (85-108) Arterial Blood HCO3 20 mmol/L (21-28) Arterial Blood Base Excess -5 mmol/L (-3-3) FiO2 35% vent Glucose (Fingerstick) 112 mg/dL (70-99) Test 12/09/20 17:34 12/10/20 07:55 Glucose (Fingerstick) 116 mg/dL (70-99) White Blood Count 13.7 x10^3/uL (4.0-11.0) Red Blood Count 3.10 x10^6/uL (3.50-5.40) Hemoglobin 10.3 g/dL (12.0-15.5) Hematocrit 30.6 % (36.0-47.0) Mean Corpuscular Volume 99 fL (79-100) Mean Corpuscular Hemoglobin 33 pg (25-35) Mean Corpuscular Hemoglobin Concent 34 g/dL (31-37) Red Cell Distribution Width 19.6 % (11.5-14.5) Platelet Count 212 x10^3/uL (140-400) Neutrophils (%) (Auto) 76 % (31-73) Lymphocytes (%) (Auto) 18 % (24-48) Monocytes (%) (Auto) 6 % (0-9) Eosinophils (%) (Auto) 0 % (0-3) Basophils (%) (Auto) 0 % (0-3) Neutrophils # (Auto) 10.3 x10^3/uL (1.8-7.7) Lymphocytes # (Auto) 2.4 x10^3/uL (1.0-4.8) Monocytes # (Auto) 0.9 x10^3/uL (0.0-1.1) Eosinophils # (Auto) 0.0 x10^3/uL (0.0-0.7) Basophils # (Auto) 0.1 x10^3/uL (0.0-0.2) Sodium Level 148 mmol/L (136-145) Potassium Level 3.9 mmol/L (3.5-5.1) Chloride Level 110 mmol/L (98-107) Carbon Dioxide Level 24 mmol/L (21-32) Anion Gap 14 (6-14) Blood Urea Nitrogen 6 mg/dL (7-20) Creatinine 1.2 mg/dL (0.6-1.0) Estimated GFR (Cockcroft-Gault) 50.8 BUN/Creatinine Ratio 5 (6-20) Glucose Level 113 mg/dL (70-99) Calcium Level 8.1 mg/dL (8.5-10.1) Total Bilirubin 0.4 mg/dL (0.2-1.0) Aspartate Amino Transf (AST/SGOT) 36 U/L (15-37) Alanine Aminotransferase (ALT/SGPT) 27 U/L (14-59) Alkaline Phosphatase 65 U/L (46-116) Total Protein 5.5 g/dL (6.4-8.2) Albumin 2.5 g/dL (3.4-5.0) Albumin/Globulin Ratio 0.8 (1.0-1.7) Laboratory Tests Test 12/09/20 17:34 12/10/20 07:55 Glucose (Fingerstick) 116 mg/dL (70-99) White Blood Count 13.7 x10^3/uL (4.0-11.0) Red Blood Count 3.10 x10^6/uL (3.50-5.40) Hemoglobin 10.3 g/dL (12.0-15.5) Hematocrit 30.6 % (36.0-47.0) Mean Corpuscular Volume 99 fL (79-100) Mean Corpuscular Hemoglobin 33 pg (25-35) Mean Corpuscular Hemoglobin Concent 34 g/dL (31-37) Red Cell Distribution Width 19.6 % (11.5-14.5) Platelet Count 212 x10^3/uL (140-400) Neutrophils (%) (Auto) 76 % (31-73) Lymphocytes (%) (Auto) 18 % (24-48) Monocytes (%) (Auto) 6 % (0-9) Eosinophils (%) (Auto) 0 % (0-3) Basophils (%) (Auto) 0 % (0-3) Neutrophils # (Auto) 10.3 x10^3/uL (1.8-7.7) Lymphocytes # (Auto) 2.4 x10^3/uL (1.0-4.8) Monocytes # (Auto) 0.9 x10^3/uL (0.0-1.1) Eosinophils # (Auto) 0.0 x10^3/uL (0.0-0.7) Basophils # (Auto) 0.1 x10^3/uL (0.0-0.2) Sodium Level 148 mmol/L (136-145) Potassium Level 3.9 mmol/L (3.5-5.1) Chloride Level 110 mmol/L (98-107) Carbon Dioxide Level 24 mmol/L (21-32) Anion Gap 14 (6-14) Blood Urea Nitrogen 6 mg/dL (7-20) Creatinine 1.2 mg/dL (0.6-1.0) Estimated GFR (Cockcroft-Gault) 50.8 BUN/Creatinine Ratio 5 (6-20) Glucose Level 113 mg/dL (70-99) Calcium Level 8.1 mg/dL (8.5-10.1) Total Bilirubin 0.4 mg/dL (0.2-1.0) Aspartate Amino Transf (AST/SGOT) 36 U/L (15-37) Alanine Aminotransferase (ALT/SGPT) 27 U/L (14-59) Alkaline Phosphatase 65 U/L (46-116) Total Protein 5.5 g/dL (6.4-8.2) Albumin 2.5 g/dL (3.4-5.0) Albumin/Globulin Ratio 0.8 (1.0-1.7) Microbiology 12/08/20 Blood Culture - Preliminary, Resulted NO GROWTH AFTER 1 DAY 12/07/20 Urine Culture - Final, Complete Medications Current Medications Ringer's Solution 500 ml @ 500 mls/hr 1X ONCE IV ; Start 12/07/20 at 05:00; Stop 12/07/20 at 05:59; Status DC Ringer's Solution 500 ml @ 500 mls/hr 1X ONCE IV ; Start 12/07/20 at 05:00; Stop 12/07/20 at 05:59; Status DC Metoclopramide HCl (Reglan Vial) 10 mg 1X ONCE IVP ; Start 12/07/20 at 05:30; Stop 12/07/20 at 05:05; Status DC Ringer's Solution 500 ml @ 500 mls/hr 1X ONCE IV ; Start 12/07/20 at 05:30; Stop 12/07/20 at 06:29; Status DC Haloperidol Lactate (Haldol Inj) 5 mg STK-MED ONCE .ROUTE ; Start 12/07/20 at 05:05; Stop 12/07/20 at 05:05; Status DC Haloperidol Lactate (Haldol Inj) 5 mg 1X ONCE IVP Last administered on 12/07/20at 05:14; Start 12/07/20 at 05:30; Stop 12/07/20 at 05:31; Status DC Diphenhydramine HCl (Benadryl) 50 mg 1X ONCE IVP Last administered on 12/07/20at 05:14; Start 12/07/20 at 05:30; Stop 12/07/20 at 05:31; Status DC Ringer's Solution 500 ml @ 1,000 mls/hr 1X ONCE IV Last administered on 12/07/20at 05:13; Start 12/07/20 at 05:30; Stop 12/07/20 at 05:59; Status DC Propofol 100 ml @ As Directed STK-MED ONCE IV ; Start 12/07/20 at 05:56; Stop 12/07/20 at 05:56; Status DC Potassium Chloride/Sodium Chloride 1,000 ml @ 125 mls/hr Q8H IV Last administered on 12/07/20at 06:30; Start 12/07/20 at 06:30; Stop 12/07/20 at 14:29; Status DC Midazolam HCl (Versed) 5 mg STK-MED ONCE .ROUTE ; Start 12/07/20 at 06:29; Stop 12/07/20 at 06:30; Status DC Fentanyl Citrate 30 ml @ 0 mls/hr CONT PRN IV SEE PROTOCOL; Start 12/07/20 at 07:00; Status Cancel Chlorhexidine Gluconate (Peridex) 15 ml BID MM Last administered on 12/07/20at 09:00; Start 12/07/20 at 09:00; Stop 12/07/20 at 18:44; Status DC Midazolam HCl 100 ml @ 0 mls/hr CONT PRN IV SEE PROTOCOL Last administered on 12/07/20at 20:29; Start 12/07/20 at 07:00; Stop 12/09/20 at 15:37; Status DC Magnesium Sulfate 100 ml @ 25 mls/hr 1X ONCE IV Last administered on 12/07/20at 08:47; Start 12/07/20 at 07:30; Stop 12/07/20 at 11:29; Status DC Famotidine (Pepcid Vial) 20 mg BID IVP ; Start 12/07/20 at 09:00; Stop 12/07/20 at 10:56; Status DC Buspirone HCl (Buspar) 30 mg Q8H NG Last administered on 12/08/20 16:18; Start 12/07/20 at 08:00; Stop 12/08/20 at 21:06; Status DC Acetaminophen (Tylenol) 650 mg Q4H NG Last administered on 12/08/20at 16:22; Start 12/07/20 at 08:00; Stop 12/08/20 at 22:07; Status DC Glycerin/ Hypromellose/ Polyethylene (Artificial Tears) 1 drop Q6HRS OU Last administered on 12/07/20 17:25; Start 12/07/20 at 12:00; Stop 12/07/20 at 18:44; Status DC Glycerin/ Hypromellose/ Polyethylene (Artificial Tears) 1 drop PRN Q15MIN PRN OU DRY EYE; Start 12/07/20 at 08:00 Heparin Sodium (Porcine) (Heparin Sodium) 5,000 unit BID SQ Last administered on 12/09/20at 22:06; Start 12/07/20 at 09:00 Pantoprazole Sodium (PROTONIX VIAL for IV PUSH) 40 mg DAILY IVP Last a dministered on 12/09/20at 08:29; Start 12/07/20 at 09:00 Fentanyl Citrate 30 ml @ 0 mls/hr CONT PRN IV PER PROTOCOL. Last administered on 12/09/20 04:17; Start 12/07/20 at 08:00 Propofol 100 ml @ 0 mls/hr CONT PRN IV PER PROTOCOL. Last administered on 04:08; Start 12/07/20 at 08:00 Midazolam HCl 100 ml @ 0 mls/hr CONT PRN IV PER PROTOCOL; Start 12/07/20 at 08:00; Status UNV Vecuronium [place] (Norcuron Bolus) 6 mg PRN Q1HR PRN IV SHIVERING Last administered on 12/07/20at 08:47; Start 12/07/20 at 08:00 Potassium Chloride/Water 100 ml @ 100 mls/hr Q1H IV Last administered on 12/07/20at 10:49; Start 12/07/20 at 09:00; Stop 12/07/20 at 12:59; Status DC Potassium Chloride/Water 100 ml @ 100 mls/hr Q1H IV ; Start 12/07/20 at 12:00; Stop 12/07/20 at 14:59; Status DC Potassium Phosphate 10 mmol/ Sodium Chloride 103.3333 ml @ 51.667 m... Q2H IV Last administered on 12/07/20at 12:00; Start 12/07/20 at 10:00; Stop 12/07/20 at 13:59; Status DC Potassium Phosphate 10 mmol/ Sodium Chloride 103.3333 ml @ 51.667 m... Q2H IV Last administered on 12/07/20at 13:43; Start 12/07/20 at 12:00; Stop 12/07/20 at 15:59; Status DC Sodium Bicarbonate (Sodium Bicarb Adult 8.4% Syr) 50 meq STK-MED ONCE .ROUTE ; Start 12/07/20 at 12:00; Stop 12/07/20 at 15:47; Status DC Amiodarone HCl (Cordarone) 300 mg STK-MED ONCE .ROUTE ; Start 12/07/20 at 12:00; Stop 12/07/20 at 15:47; Status DC Epinephrine HCl (EPINEPHrine SYRINGE) 3 mg STK-MED ONCE .ROUTE ; Start 12/07/20 at 12:00; Stop 12/07/20 at 15:47; Status DC Midazolam HCl (Versed) 5 mg STK-MED ONCE .ROUTE ; Start 12/07/20 at 12:00; Stop 12/07/20 at 15:47; Status DC Magnesium Sulfate/ Dextrose (Magnesium Sulfate PREMIX 1GM) 1 gm STK-MED ONCE IV ; Start 12/07/20 at 12:00; Stop 12/07/20 at 15:47; Status DC Sodium Chloride 1,000 ml @ 50 mls/hr Q20H IV Last administered on 12/08/20at 13:13; Start 12/07/20 at 17:30; Stop 12/08/20 at 13:53; Status DC Potassium Chloride/Water 100 ml @ 100 mls/hr 1X ONCE IV Last administered on 12/07/20at 23:35; Start 12/07/20 at 23:30; Stop 12/08/20 at 00:29; Status DC Dopamine HCl/ Dextrose 250 ml @ 13.481 mls/ hr CONT PRN IV SEE I/O RECORD; Start 12/08/20 at 06:45 Dextrose (Dextrose 50%-Water Syringe) 12.5 gm PRN Q15MIN PRN IV SEE COMMENTS Last administered on 12/08/20at 10:04; Start 12/08/20 at 10:00 Potassium Chloride/Water 100 ml @ 100 mls/hr 1X ONCE IV Last administered on 12/08/20at 14:27; Start 12/08/20 at 13:45; Stop 12/08/20 at 14:44; Status DC Dextrose/Sodium Chloride 1,000 ml @ 75 mls/hr [id number] IV Last administered on 12/08/20at 14:16; Start 12/08/20 at 13:45; Stop 12/08/20 at 18:42; Status DC Norepinephrine Bitartrate 8 mg/ Dextrose 258 ml @ 13.913 mls/ hr CONT PRN IV PER PROTOCOL Last administered on 12/08/20at 15:11; Start 12/08/20 at 15:00 Hydrocortisone Sodium Succinate (Solu-CORTEF) 100 mg Q12HR IVP Last administered on 12/09/20at 22:06; Start 12/08/20 at 15:30 Potassium Chloride/Dextrose/ Sod Cl 1,000 ml @ 125 mls/hr Q8H IV Last administered on 12/09/20at 04:09; Start 12/08/20 at 19:00; Stop 12/09/20 at 11:13; Status DC Potassium Chloride/Water 100 ml @ 100 mls/hr Q1H IV Last administered on 12/08/20at 20:03; Start 12/08/20 at 19:00; Stop 12/08/20 at 20:59; Status DC Magnesium Sulfate/ Dextrose 100 ml @ 100 mls/hr 1X ONCE IV Last administered on 12/08/20at 18:51; Start 12/08/20 at 19:00; Stop 12/08/20 at 19:59; Status DC Cefepime HCl (Maxipime) 2 gm Q12HR IVP Last administered on 12/09/20at 22:06; Start 12/08/20 at 21:30 Calcium Gluconate 1000 mg/Sodium Chloride 110 ml @ 220 mls/hr 1X ONCE IV Last administered on 12/08/20at 23:40; Start 12/08/20 at 22:30; Stop 12/08/20 at 22:59; Status DC Dexmedetomidine HCl 400 mcg/ Sodium Chloride 100 ml @ 0 mls/hr CONT PRN IV PER PROTOCOL; Start 12/09/20 at 08:45 Sodium Chloride 500 ml @ 500 mls/hr 1X PRN PRN IV SEE COMMENTS; Start 12/09/20 at 08:45 Atropine Sulfate (ATROPINE 0.5mg SYRINGE) 0.5 mg PRN Q5MIN PRN IV SEE COMMENTS; Start 12/09/20 at 08:45 Potassium Chloride/Dextrose/ Sod Cl 1,000 ml @ 75 mls/hr [id number] IV ; Start 12/09/20 at 11:15; Stop 12/09/20 at 11:35; Status DC Potassium Chloride/Dextrose/ Sod Cl 1,000 ml @ 75 mls/hr [id number] IV Last administered on 12/10/20at 01:52; Start 12/09/20 at 11:45 Calcium Gluconate 1000 mg/Sodium Chloride 110 ml @ 220 mls/hr 1X ONCE IV Last administered on 12/09/20at 14:03; Start 12/09/20 at 14:00; Stop 12/09/20 at 14:29; Status DC Ondansetron HCl (Zofran) 4 mg PRN Q8HRS PRN IVP NAUSEA/VOMITING Last administered on 12/09/20at 13:52; Start 12/09/20 at 13:45; Stop 12/09/20 at 15:37; Status DC Promethazine HCl (Phenergan) 12.5 mg PRN Q6HRS PRN PO NAUSEA/VOMITING; Start 12/09/20 at 15:30; Stop 12/09/20 at 15:37; Status DC Promethazine HCl (Phenergan) 12.5 mg PRN Q6HRS PRN PO NAUSEA/VOMITING; Start 12/09/20 at 16:45; Stop 12/09/20 at 17:07; Status DC Prochlorperazine Edisylate (Compazine) 10 mg PRN Q6HRS PRN IV NAUSEA/VOMITING Last administered on 12/10/20at 03:09; Start 12/09/20 at 17:15 Lorazepam (Ativan Inj) 2 mg PRN Q6HRS PRN IVP ANXIETY / AGITATION Last administered on 12/10/20at 03:10; Start 12/09/20 at 19:00 Active Scripts Active Vancomycin Hcl 125 Mg Capsule 1 Cap PO QID 10 Days Potassium Chloride (Potassium Chloride) 20 Meq Tablet.er 20 Meq PO BIDAC 30 Days Reglan (Metoclopramide Hcl) 10 Mg Tablet 10 Mg PO TID PRN Compazine (Prochlorperazine Maleate) 10 Mg Tablet 1 Tab PO Q6HRS Ondansetron Odt (Ondansetron) 4 Mg Tab.rapdis 1 Tab PO PRN Q6-8HRS Amitriptyline Hcl 10 Mg Tablet 1 Tab PO QHS 90 Days Celexa (Citalopram Hydrobromide) 20 Mg Tablet 1 Tab PO QHS Reported Fenofibrate (Fenofibrate,Micronized) 134 Mg Capsule 134 Mg PO DAILY Nexium Capsule (Esomeprazole Magnesium) 40 Mg Capsule.dr 1 Cap PO DAILY Vitals/I & O Vital Sign - Last 24 Hours 12/09/20 12/09/20 12/09/20 12/09/20 09:00 09:00 09:10 09:15 Temp 98.2 98.2 Pulse 61 66 Resp 14 B/P (MAP) 154/94 (114) Pulse Ox 100 100 100 O2 Delivery Ventilator Ventilator Ventilator 12/09/20 12/09/20 12/09/20 12/09/20 09:30 10:00 11:00 12:00 Temp 98.6 98.6 98.6 98.6 98.6 98.6 Pulse 70 62 54 Resp 14 14 14 B/P (MAP) 118/85 (96) 114/81 (92) 121/88 (99) Pulse Ox 100 97 97 97 O2 Delivery Ventilator Nasal Cannula Room Air Room Air 4/1612/09/20 12/09/20 12/09/20 13:00 16:00 20:00 20:00 Temp 97.7 98.4 98.0 97.7 98.4 98.0 Pulse 59 71 74 Resp 16 14 14 B/P (MAP) 116/85 (95) 135/92 (106) 103/70 (81) Pulse Ox 97 94 99 O2 Delivery Room Air Room Air Room Air Room Air 12/10/20 12/10/20 12/10/20 12/10/20 00:01 04:00 08:00 08:00 Temp 97.8 98.5 98.3 97.8 98.5 98.3 Pulse 78 95 80 Resp 14 14 B/P (MAP) 128/86 (100) 129/85 (100) 149/95 (113) Pulse Ox 99 98 96 O2 Delivery Room Air Room Air Room Air Room Air Intake and Output 12/09/20 12/09/20 12/10/20 15:00 23:00 07:00 Intake Total 933.65 ml 430 ml 404 ml Output Total 660 ml 185 ml 600 ml Balance 273.65 ml 245 ml -196 ml Nutrition Consultation Dietary Evaluation: Recommendations by RD: Dietary education by RD, Increase Calorie Intake, PPN/TPN Comments: REC advance diet as able pending [employer] eval and GI tolerance, goal diet cardiac w/supplements prn If unable to advance diet per [employer] within 24-48 hrs, recommend dobhoff for TFs per following: Osmolite 1.5@20 ml/hr, increase 10 ml q8 hrs as tolerated to goal rate 40 ml/hr w/150 ml water flushes q4 hrs REC TPN (pt has central line) if unable to advance diet within 24- 48 hrs per GI, recommend TPN per following dextrose, 70g AA, 20g lipids Expected Outcomes/Goals: Initiate nutrition support when pt is stable - not met, new goal established New goal 12/09: initiation of nutrition within next 24 - 48 hrs s/p extubation Interpretation of weight loss: >10% in 6 months Malnutrition Findings: Food and Nutrition Intake (Sev: <50% est energy req 5days Weight Status: Appropriate Justicifation of Admission Dx: Justifications for Admission: Justification of Admission Dx: Yes CHF: Sev. Electrolyte Abnormal MYA CASTELLON MD Dec 10, 2020 08:55
--- NOTE | 2020-12-10 09:17 | PDOC ---
PROGRESS NOTES Date of Service: DATE: 12/10/20 TIME: 09:14 Subjective Subjective Somnolent, comfortable Objective Objective Vital Signs Date Time Temp Pulse Resp B/P (MAP) Pulse Ox O2 Delivery O2 Flow Rate FiO2 12/10/20 08:00 98.3 80 149/95 (113) 96 Room Air 98.3 12/10/20 04:00 14 Intake and Output 12/10/20 07:00 Intake Total 1767.65 ml Output Total 1445 ml Balance 322.65 ml Intake IV Total 1767.65 ml Output Urine Total 1445 ml Physical Exam Abdomen: Normal bowel sounds, Soft, No tenderness Heart: Regular rate, Normal S1, Normal S2, No murmurs, Other Extremities: No cyanosis General: Cooperative, No acute distress HEENT: Atraumatic, PERRLA Lungs: Clear to auscultation, Other (Scattered crepitations bilaterally) MUSCULOSKELETAL: No joint tenderness, No deformity Neuro: Other (UNABLE TO ASSESS) Psych/Mental Status: Other (SEDATED) Skin: No breakdown Assessment Assessment 1. Nausea/vomiting, gastroparesis; treat per gastroenterology team. 2. VFIB arrest in the setting of significant electrolyte abnormalities and QT prolongation. QTC 506. Approximately 10 mins prior to ROSC. No further arrhythmias noted on tele. 2D echo showed normal LV systolic function without any wall motion abnormalities. The option of cardiac catheterization was discussed with patient and family but they would like to defer for now. 3. TIA: Improved 4. Severe hypokalemia, hypomagnesemia; replaced 5. Acute respiratory failure secondary to cardiac arrest; s/p extubation. Pulmonary team following. 6. Anxiety, depression Plan Plan of Care Problems Medical Problems: (1) Cardiac arrest Status: Acute (2) Hypokalemia Status: Acute (3) Hypomagnesemia Status: Acute (4) Nausea and vomiting Status: Acute (5) Prolonged QT interval Status: Acute Comment Review of Relevant I have reviewed the following items josué (where applicable) has been applied. Labs Laboratory Tests Test 12/09/20 17:34 12/10/20 07:55 Glucose (Fingerstick) 116 mg/dL (70-99) White Blood Count 13.7 x10^3/uL (4.0-11.0) Red Blood Count 3.10 x10^6/uL (3.50-5.40) Hemoglobin 10.3 g/dL (12.0-15.5) Hematocrit 30.6 % (36.0-47.0) Mean Corpuscular Volume 99 fL (79-100) Mean Corpuscular Hemoglobin 33 pg (25-35) Mean Corpuscular Hemoglobin Concent 34 g/dL (31-37) Red Cell Distribution Width 19.6 % (11.5-14.5) Platelet Count 212 x10^3/uL (140-400) Neutrophils (%) (Auto) 76 % (31-73) Lymphocytes (%) (Auto) 18 % (24-48) Monocytes (%) (Auto) 6 % (0-9) Eosinophils (%) (Auto) 0 % (0-3) Basophils (%) (Auto) 0 % (0-3) Neutrophils # (Auto) 10.3 x10^3/uL (1.8-7.7) Lymphocytes # (Auto) 2.4 x10^3/uL (1.0-4.8) Monocytes # (Auto) 0.9 x10^3/uL (0.0-1.1) Eosinophils # (Auto) 0.0 x10^3/uL (0.0-0.7) Basophils # (Auto) 0.1 x10^3/uL (0.0-0.2) Sodium Level 148 mmol/L (136-145) Potassium Level 3.9 mmol/L (3.5-5.1) Chloride Level 110 mmol/L (98-107) Carbon Dioxide Level 24 mmol/L (21-32) Anion Gap 14 (6-14) Blood Urea Nitrogen 6 mg/dL (7-20) Creatinine 1.2 mg/dL (0.6-1.0) Estimated GFR (Cockcroft-Gault) 50.8 BUN/Creatinine Ratio 5 (6-20) Glucose Level 113 mg/dL (70-99) Calcium Level 8.1 mg/dL (8.5-10.1) Total Bilirubin 0.4 mg/dL (0.2-1.0) Aspartate Amino Transf (AST/SGOT) 36 U/L (15-37) Alanine Aminotransferase (ALT/SGPT) 27 U/L (14-59) Alkaline Phosphatase 65 U/L (46-116) Total Protein 5.5 g/dL (6.4-8.2) Albumin 2.5 g/dL (3.4-5.0) Albumin/Globulin Ratio 0.8 (1.0-1.7) Microbiology 12/08/20 Blood Culture - Preliminary, Resulted NO GROWTH AFTER 1 DAY 12/07/20 Urine Culture - Final, Complete Medications Current Medications Calcium Gluconate 1000 mg/Sodium Chloride 110 ml @ 220 mls/hr 1X ONCE IV Last administered on 12/09/20at 14:03; Start 12/09/20 at 14:00; Stop 12/09/20 at 14:29; Status DC Lorazepam (Ativan Inj) 2 mg PRN Q6HRS PRN IVP ANXIETY / AGITATION Last administered on 12/10/20at 03:10; Start 12/09/20 at 19:00 Ondansetron HCl (Zofran) 4 mg PRN Q8HRS PRN IVP NAUSEA/VOMITING Last administered on 12/09/20at 13:52; Start 12/09/20 at 13:45; Stop 12/09/20 at 15:37; Status DC Potassium Chloride/Dextrose/ Sod Cl 1,000 ml @ 75 mls/hr [id number] IV ; Start 12/09/20 at 11:15; Stop 12/09/20 at 11:35; Status DC Potassium Chloride/Dextrose/ Sod Cl 1,000 ml @ 75 mls/hr [id number] IV Last administered on 12/10/20at 01:52; Start 12/09/20 at 11:45 Prochlorperazine Edisylate (Compazine) 10 mg PRN Q6HRS PRN IV NAUSEA/VOMITING Last administered on 12/10/20at 03:09; Start 12/09/20 at 17:15 Promethazine HCl (Phenergan) 12.5 mg PRN Q6HRS PRN PO NAUSEA/VOMITING; Start 12/09/20 at 15:30; Stop 12/09/20 at 15:37; Status DC Promethazine HCl (Phenergan) 12.5 mg PRN Q6HRS PRN PO NAUSEA/VOMITING; Start 12/09/20 at 16:45; Stop 12/09/20 at 17:07; Status DC Vitals/I & O Vital Sign - Last 24 Hours 12/09/20 12/09/20 12/09/2012/09/21 09:15 09:30 10:00 11:00 Temp 98.6 98.6 98.6 98.6 Pulse 70 62 Resp 14 14 B/P (MAP) 118/85 (96) 114/81 (92) Pulse Ox 100 100 97 97 O2 Delivery Ventilator Ventilator Nasal Cannula Room Air 12/09/20 12/09/20 12/09/20 12/09/20 12:00 13:00 16:00 20:00 Temp 98.6 97.7 98.4 98.0 98.6 97.7 98.4 98.0 Pulse 54 59 71 74 Resp 14 16 14 14 B/P (MAP) 121/88 (99) 116/85 (95) 135/92 (106) 103/70 (81) Pulse Ox 97 97 94 99 O2 Delivery Room Air Room Air Room Air Room Air 12/09/20 12/10/20 12/10/20 12/10/20 20:00 00:01 04:00 08:00 Temp 97.8 98.5 97.8 98.5 Pulse 78 95 Resp 14 B/P (MAP) 128/86 (100) 129/85 (100) Pulse Ox 99 98 O2 Delivery Room Air Room Air Room Air Room Air 12/10/20 08:00 Temp 98.3 98.3 Pulse 80 B/P (MAP) 149/95 (113) Pulse Ox 96 O2 Delivery Room Air Intake and Output 12/09/20 12/09/20 12/10/20 15:00 23:00 07:00 Intake Total 933.65 ml 430 ml 404 ml Output Total 660 ml 185 ml 600 ml Balance 273.65 ml 245 ml -196 ml VISHAL LAI MD Dec 10, 2020 09:17
[2020-12-10] MEDS: PANTOPRAZOLE IV PUSH 40 MG VIAL. IVP SCH (09:27)
[2020-12-10] MEDS: CEFEPIME HCL IV Push 2 GM VIAL. IVP SCH ×2 (09:28→20:44)
[2020-12-10] MEDS: HYDROCORTISONE SOD SUCC/PF 100 MG/2 ML VIAL. IVP SCH ×2 (09:28→20:44)
[2020-12-10] MEDS: HEPARIN for SUB-Q USE 5,000 UNIT/ML VIAL. SQ SCH ×2 (09:38→20:45)
--- NOTE | 2020-12-10 12:01 | EKG ---
[facility] [address] [place] [address] Test Date: 2020-12-10 Test Time: 11:52:59 Pat Name: GENEVIEVE ALANIZ Department: Room: 109 1 Gender: F Environmental Aid: : 1985 Requested By: MYA CASTELLON Order Number: [id number] Reading MD: Measurements Intervals [place] Rate: 58 P: 0 OR: 132 QRS: -20 QRSD: 76 T: -21 QT: 548 QTc: 537 Interpretive Statements SINUS RHYTHM LEFTWARD AXIS R-S TRANSITION ZONE IN V LEADS DISPLACED TO THE RIGHT T ABNORMALITY IN INFERIOR LEADS PROLONGED QT ABNORMAL ECG RI6.02 Compared to ECG 12/09/2020 10:56:40 No significant changes
--- NOTE | 2020-12-10 13:12 | PDOC ---
DATE OF SERVICE: DOS: DATE: 12/10/20 TIME: 13:08 SUBJECTIVE ROS Follow-up for acute kidney injury Patient received Ativan earlier this morning. Prolonged nausea vomiting. She is unable to be awoken at this time. And is fast asleep OBJECTIVE Vital Signs Vital Signs Date Time Temp Pulse Resp B/P (MAP) Pulse Ox O2 Delivery O2 Flow Rate FiO2 12/10/20 12:30 50 154/93 (113) 99 Room Air 12/10/20 11:00 98.9 98.9 12/10/20 04:00 14 I & 0 Intake and Output 12/10/20 07:00 Intake Total 1767.65 ml Output Total 1445 ml Balance 322.65 ml Intake IV Total 1767.65 ml Output Urine Total 1445 ml PHYSICAL EXAM Physical Exam GEN: Sedated and fast asleep currently EYES: Sclera anicteric, Conjunctiva Normal EN: No EN Drainage, Mucous Membranes slightly dry currently NECK: no JVD, no JVP, Supple, no Thyromegaly CVS: S1S2, no Murmur, No Gallop, No Rub,no Edema: Bradycardic currently RESP: no Rales, no Rhonchi,no Acc. Muscle Use GI: BS + ve, NO Bruit, Non Tender, Non Distended : no CVA tenderness, no Suprapubic Tenderness DIAGNOSIS/ASSESSMENT Assessment & Plan TIA-ATN: Creatinine appears to be improving, urine output is adequate VFIB arrest previously: Currently bradycardic HYPOKALEMIA adequately replete currently. Remains on IV fluids with potassium HYPOMAGNESEMIA: Check magnesium tomorrow. Was replaced yesterday Nausea vomiting will defer to other specialists Hypernatremia: Presumed dehydration continue hypotonic fluids. If sodium goes above 150, will change to PPN.. She is not polyuric at this time COMMENT/RELEVANT DATA Meds Current Medications Medications (Trade) Dose Ordered Sig/Kwaku Start Time Stop Time Status Last Admin Dose Admin Acetaminophen (Tylenol) 650 mg Q4H 12/07/20 08:00 12/08/20 22:07 DC 12/08/20 16:22 650 MG Amiodarone HCl (Cordarone) 300 mg STK-MED ONCE 12/07/20 12:00 12/07/20 15:47 DC Atropine Sulfate (ATROPINE 0.5mg SYRINGE) 0.5 mg PRN Q5MIN PRN 12/09/20 08:45 Buspirone HCl (Buspar) 30 mg Q8H 12/07/20 08:00 12/08/20 21:06 DC 12/08/20 16:18 30 MG Calcium Gluconate 1000 mg/Sodium Chloride 110 ml @ 220 mls/hr 1X ONCE 12/09/20 14:00 12/09/20 14:29 DC 12/09/20 14:03 220 MLS/HR Calcium/Vitamin D (Oscal D 500mg/ 200uts) 1 tab [id number] 12/10/20 17:00 Cefepime HCl (Maxipime) 2 gm Q12HR 12/08/20 21:30 12/10/20 09:28 2 GM Chlorhexidine Gluconate (Peridex) 15 ml BID 12/07/20 09:00 12/07/20 18:44 DC 12/07/20 09:00 15 ML Dexmedetomidine HCl 400 mcg/ Sodium Chloride 100 ml @ 0 mls/hr CONT PRN 12/09/20 08:45 Dextrose (Dextrose 50%-Water Syringe) 12.5 gm PRN Q15MIN PRN 12/08/20 10:00 12/08/20 10:04 50 GM Dextrose/Sodium Chloride 1,000 ml @ 75 mls/hr [id number] 12/08/20 13:45 12/08/20 18:42 DC 12/08/20 14:16 75 MLS/HR Diphenhydramine HCl (Benadryl) 50 mg 1X ONCE 12/07/20 05:30 12/07/20 05:31 DC 12/07/20 05:14 50 MG Dopamine HCl/ Dextrose 250 ml @ 13.481 mls/ hr CONT PRN 12/08/20 06:45 Epinephrine HCl (EPINEPHrine SYRINGE) 3 mg STK-MED ONCE 12/07/20 12:00 12/07/20 15:47 DC Famotidine (Pepcid Vial) 20 mg BID 12/07/20 09:00 12/07/20 10:56 DC Fentanyl Citrate 30 ml @ 0 mls/hr CONT PRN 12/07/20 08:00 12/09/20 04:17 1.25 MLS/HR Glycerin/ Hypromellose/ Polyethylene (Artificial Tears) 1 drop PRN Q15MIN PRN 12/07/20 08:00 Haloperidol Lactate (Haldol Inj) 5 mg 1X ONCE 12/07/20 05:30 12/07/20 05:31 DC 12/07/20 05:14 5 MG Heparin Sodium (Porcine) (Heparin Sodium) 5,000 unit BID 12/07/20 09:00 12/10/20 09:38 5,000 UNIT Hydrocortisone Sodium Succinate (Solu-CORTEF) 100 mg Q12HR 12/08/20 15:30 12/10/20 09:28 100 MG Lorazepam (Ativan Inj) 2 mg PRN Q6HRS PRN 12/09/20 19:00 12/10/20 10:53 2 MG Magnesium Sulfate 100 ml @ 25 mls/hr 1X ONCE 12/07/20 07:30 12/07/20 11:29 DC 12/07/20 08:47 25 MLS/HR Magnesium Sulfate/ Dextrose 100 ml @ 100 mls/hr 1X ONCE 12/08/20 19:00 12/08/20 19:59 DC 12/08/20 18:51 100 MLS/HR Magnesium Sulfate/ Dextrose (Magnesium Sulfate PREMIX 1GM) 1 gm STK-MED ONCE 12/07/20 12:00 12/07/20 15:47 DC Metoclopramide HCl (Reglan Vial) 10 mg 1X ONCE 12/07/20 05:30 12/07/20 05:05 DC Midazolam HCl (Versed) 5 mg STK-MED ONCE 12/07/20 12:00 12/07/20 15:47 DC Norepinephrine Bitartrate 8 mg/ Dextrose 258 ml @ 13.913 mls/ hr CONT PRN 12/08/20 15:00 12/08/20 15:11 13.5 MLS/HR Ondansetron HCl (Zofran) 4 mg PRN Q8HRS PRN 12/09/20 13:45 12/09/20 15:37 DC 12/09/20 13:52 4 MG Pantoprazole Sodium (PROTONIX VIAL for IV PUSH) 40 mg DAILY 12/07/20 09:00 12/10/20 09:27 40 MG Potassium Chloride/Dextrose/ Sod Cl 1,000 ml @ 75 mls/hr [id number] 12/09/20 11:45 12/10/20 01:52 75 MLS/HR Potassium Chloride/Sodium Chloride 1,000 ml @ 125 mls/hr Q8H 12/07/20 06:30 12/07/20 14:29 DC 12/07/20 06:30 125 MLS/HR Potassium Chloride/Water 100 ml @ 100 mls/hr Q1H 12/08/20 19:00 12/08/20 20:59 DC 12/08/20 20:03 100 MLS/HR Potassium Phosphate 10 mmol/ Sodium Chloride 103.3333 ml @ 51.667 m... Q2H 12/07/20 12:00 12/07/20 15:59 DC 12/07/20 13:43 51.667 MLS/HR Prochlorperazine Edisylate (Compazine) 10 mg PRN Q6HRS PRN 12/09/20 17:15 12/10/20 09:48 10 MG Promethazine HCl (Phenergan) 12.5 mg PRN Q6HRS PRN 12/09/20 16:45 12/09/20 17:07 DC Propofol 100 ml @ 0 mls/hr CONT PRN 12/07/20 08:00 12/09/20 04:08 13 MLS/HR Ringer's Solution 500 ml @ 1,000 mls/hr 1X ONCE 12/07/20 05:30 12/07/20 05:59 DC 12/07/20 05:13 1,000 MLS/HR Sodium Bicarbonate (Sodium Bicarb Adult 8.4% Syr) 50 meq STK-MED ONCE 12/07/20 12:00 12/07/20 15:47 DC Sodium Chloride 500 ml @ 500 mls/hr 1X PRN PRN 12/09/20 08:45 Vecuronium [place] (Norcuron Bolus) 6 mg PRN Q1HR PRN 12/07/20 08:00 12/07/20 08:47 6 MG Lab Laboratory Tests Test 12/09/20 17:34 12/10/20 07:55 Glucose (Fingerstick) 116 mg/dL (70-99) White Blood Count 13.7 x10^3/uL (4.0-11.0) Red Blood Count 3.10 x10^6/uL (3.50-5.40) Hemoglobin 10.3 g/dL (12.0-15.5) Hematocrit 30.6 % (36.0-47.0) Mean Corpuscular Volume 99 fL (79-100) Mean Corpuscular Hemoglobin 33 pg (25-35) Mean Corpuscular Hemoglobin Concent 34 g/dL (31-37) Red Cell Distribution Width 19.6 % (11.5-14.5) Platelet Count 212 x10^3/uL (140-400) Neutrophils (%) (Auto) 76 % (31-73) Lymphocytes (%) (Auto) 18 % (24-48) Monocytes (%) (Auto) 6 % (0-9) Eosinophils (%) (Auto) 0 % (0-3) Basophils (%) (Auto) 0 % (0-3) Neutrophils # (Auto) 10.3 x10^3/uL (1.8-7.7) Lymphocytes # (Auto) 2.4 x10^3/uL (1.0-4.8) Monocytes # (Auto) 0.9 x10^3/uL (0.0-1.1) Eosinophils # (Auto) 0.0 x10^3/uL (0.0-0.7) Basophils # (Auto) 0.1 x10^3/uL (0.0-0.2) Sodium Level 148 mmol/L (136-145) Potassium Level 3.9 mmol/L (3.5-5.1) Chloride Level 110 mmol/L (98-107) Carbon Dioxide Level 24 mmol/L (21-32) Anion Gap 14 (6-14) Blood Urea Nitrogen 6 mg/dL (7-20) Creatinine 1.2 mg/dL (0.6-1.0) Estimated GFR (Cockcroft-Gault) 50.8 BUN/Creatinine Ratio 5 (6-20) Glucose Level 113 mg/dL (70-99) Calcium Level 8.1 mg/dL (8.5-10.1) Total Bilirubin 0.4 mg/dL (0.2-1.0) Aspartate Amino Transf (AST/SGOT) 36 U/L (15-37) Alanine Aminotransferase (ALT/SGPT) 27 U/L (14-59) Alkaline Phosphatase 65 U/L (46-116) Total Protein 5.5 g/dL (6.4-8.2) Albumin 2.5 g/dL (3.4-5.0) Albumin/Globulin Ratio 0.8 (1.0-1.7) Results All relevant outside records, renal labs, imaging studies, telemetry/EKG's were reviewed. Justicifation of Admission Dx: Justifications for Admission: Justification of Admission Dx: Yes CHF: Sev. Electrolyte Abnormal GURMEET MIR MD Dec 10, 2020 13:12
[2020-12-10] MEDS ORDERED: MAGNESIUM SULFATE 2GM 50 ML IV PRN (13:15)
--- NOTE | 2020-12-10 15:44 | EKG ---
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
[2020-12-10] MEDS: CALCIUM CARB/VIT D3 500/200 TABLET. PO SCH (16:31)
--- NOTE | 2020-12-10 16:57 | RAD ---
Exam: CT of abdomen and pelvis without contrast INDICATION: Intractable vomiting TECHNIQUE: Sequential axial images through the abdomen and pelvis obtained without IV contrast. Sagit celestine and coronal reformatted images were reconstructed from the axial data and reviewed. Comparisons: 06/07/2020 FINDINGS: Heart size is normal. No pericardial effusion. There are small bilateral pleural effusions. Radiopaci ties at dependent portion lungs likely representing. Evaluation of solid organs is limited secondary to noncontrast technique. Liver, spleen, pancreas and adrenals are unremarkable. Gallbladder is surgically absent. No perinephric inflammation or hydronephrosis. No renal or ureteral calculi are identified. Bladder is distended and appears thin-walled. Uterus is not enlarged. No abnormal adnexal mass. Large and small bowel are unremarkable. Appendix is nonidentified. No free intra-abdominal air or flu id. No obstruction. Abdominal aorta has a normal course and caliber. Abdominal vasculature is patent. No enlarged intra-abdominal lymph nodes are identified. No suspicious osseous lesions or acute fractures. IMPRESSION: 1. No acute process identified in the abdomen or pelvis. 2. Small amount of free fluid in the pelvis and small bilateral pleural effusions. Correlate for vol ume overload. Exposure: One or more of the following in the visualized dose reduction techniques were utilized for this examination: 1. Automated exposure control 2. Adjustment of the MA and/or KV according to patient size 3. Use of iterative of reconstructive technique Electronically signed by: Enrique Meza MD (12/10/2020 4:55 PM) [facility]
--- NOTE | 2020-12-10 18:06 | NUR ---
Patient keeps requesting to leave AMA. I have on multiple occasions throughout the day have urged patient to stay and get better. Patient's dad also urging her to stay and get better. Will continue to monitor patient.
[2020-12-10] MEDS: fentaNYL PF VIAL 100 MCG/2 ML VIAL IVP PRN (21:45)
[2020-12-11] VITALS (13 sets, daily range): BP systolic 114–207; BP diastolic 66–146
[2020-12-11] MEDS: PROCHLORPERAZINE 10 MG/2 ML VIAL. IV PRN ×5 (01:26→20:22)
[2020-12-11] MEDS: POTASSIUM CL 20MEQ D5-0.45NACL 1,000 ML IV SCH (05:12)
--- NOTE | 2020-12-11 06:30 | NUR ---
Patient was restless and intermittent retching thru the night. Refused med. Remained incontinent. States "I want to go home". Will continue to monitor.
[2020-12-11 06:31] LABS: PHOSPHORUS 3.6 mg/dL (2.6-4.7)
[2020-12-11 06:33] LABS: ALBUMIN 2.3 g/dL (3.4-5.0); ALBUMIN/GLOBULIN RATIO 0.7 (1.0-1.7); CALCIUM 8.2 mg/dL (8.5-10.1); CREATININE 0.9 mg/dL (0.6-1.0); GFR 70.8; POTASSIUM 3.3 mmol/L (3.5-5.1); TOTAL BILIRUBIN 0.5 mg/dL (0.2-1.0); TOTAL PROTEIN 5.8 g/dL (6.4-8.2)
[2020-12-11 06:34] LABS: BASO % 0 % (0-3); EOS % 0 % (0-3); HEMATOCRIT 30.2 % (36.0-47.0); HEMOGLOBIN 10.1 g/dL (12.0-15.5); LYMPH # 2.7 x10^3/uL (1.0-4.8); LYMPH % 20 % (24-48); MEAN CORPUSCULAR HEMOGLOBIN 33 pg (25-35); MEAN CORPUSCULAR HGB CONC 34 g/dL (31-37); MEAN CORPUSCULAR VOLUME 98 fL (79-100); MONO % 8 % (0-9); NEUT # 9.6 x10^3/uL (1.8-7.7); NEUT % 72 % (31-73); PLATELET COUNT 209 x10^3/uL (140-400); RED BLOOD COUNT 3.09 x10^6/uL (3.50-5.40); RED CELL DISTRIBUTION WIDTH 19.3 % (11.5-14.5); WHITE BLOOD COUNT 13.3 x10^3/uL (4.0-11.0)
--- NOTE | 2020-12-11 07:12 | RAD ---
Acute abdominal series to include an AP chest radiograph 12/10/2020 Clinical History: Vomiting. An AP portable erect digital radiograph of the chest was obtained. Supine and erect AP portable digit al radiographs of the abdomen/pelvis were obtained. Comparison is made to portable chest radiograph dated 12/09/2020. The right internal jugular central venous catheter is unchanged position. The NG tube is been removed . The cardiac silhouette is borderline enlarged. The thoracic aorta is mildly tortuous. No acute pulm onary infiltrate is seen. No pleural effusion or pneumothorax is noted. Surgical clips overlie the ri ght upper quadrant abdomen consistent with a cholecystectomy. The abdominal bowel gas pattern is nono bstructive. No free air is seen. Calcifications are seen within the pelvis consistent with phlebolith s. The osseous structures are grossly intact. IMPRESSION: Nonobstructive bowel gas pattern. Electronically signed by: Jose Buitrago MD (12/11/2020 7:09 AM) [id number]
[2020-12-11] MEDS: fentaNYL PF VIAL 100 MCG/2 ML VIAL IVP PRN ×4 (07:32→19:58)
--- NOTE | 2020-12-11 07:43 | PDOC ---
PULMONARY PROGRESS NOTES DATE: 12/11/20 TIME: 07:42 Subjective on RA has gerd symptoms has n/v denies sob cough wants to go home Vitals Vital Signs Date Time Temp Pulse Resp B/P (MAP) Pulse Ox O2 Delivery O2 Flow Rate FiO2 12/11/20 07:32 Room Air 12/11/20 07:00 98.6 58 133/87 (102) 100 98.6 12/10/20 22:15 20 35.0 General: Alert, No acute distress Lungs: Clear Cardiovascular: S1, S2 Abdomen: Soft Neuro Exam: Alert Extremities: Other (No significant edema) Skin: Warm Labs Laboratory Tests Test 12/09/20 08:00 12/09/20 08:39 12/09/20 17:34 12/10/20 00:35 O2 Saturation 99 % (92-99) Arterial Blood pH 7.35 (7.35-7.45) Arterial Blood pCO2 at Patient Temp 36 mmHg (35-46) Arterial Blood pO2 at Patient Temp 146 mmHg (85-108) Arterial Blood HCO3 20 mmol/L (21-28) Arterial Blood Base Excess -5 mmol/L (-3-3) FiO2 35% vent Glucose (Fingerstick) 112 mg/dL (70-99) 116 mg/dL (70-99) Urine Random Creatinine 28.8 mg/dL (Not Establ.) Test 12/10/20 07:55 12/11/20 05:55 White Blood Count 13.7 x10^3/uL (4.0-11.0) 13.3 x10^3/uL (4.0-11.0) Red Blood Count 3.10 x10^6/uL (3.50-5.40) 3.09 x10^6/uL (3.50-5.40) Hemoglobin 10.3 g/dL (12.0-15.5) 10.1 g/dL (12.0-15.5) Hematocrit 30.6 % (36.0-47.0) 30.2 % (36.0-47.0) Mean Corpuscular Volume 99 fL (79-100) 98 fL (79-100) Mean Corpuscular Hemoglobin 33 pg (25-35) 33 pg (25-35) Mean Corpuscular Hemoglobin Concent 34 g/dL (31-37) 34 g/dL (31-37) Red Cell Distribution Width 19.6 % (11.5-14.5) 19.3 % (11.5-14.5) Platelet Count 212 x10^3/uL (140-400) 209 x10^3/uL (140-400) Neutrophils (%) (Auto) 76 % (31-73) 72 % (31-73) Lymphocytes (%) (Auto) 18 % (24-48) 20 % (24-48) Monocytes (%) (Auto) 6 % (0-9) 8 % (0-9) Eosinophils (%) (Auto) 0 % (0-3) 0 % (0-3) Basophils (%) (Auto) 0 % (0-3) 0 % (0-3) Neutrophils # (Auto) 10.3 x10^3/uL (1.8-7.7) 9.6 x10^3/uL (1.8-7.7) Lymphocytes # (Auto) 2.4 x10^3/uL (1.0-4.8) 2.7 x10^3/uL (1.0-4.8) Monocytes # (Auto) 0.9 x10^3/uL (0.0-1.1) 1.0 x10^3/uL (0.0-1.1) Eosinophils # (Auto) 0.0 x10^3/uL (0.0-0.7) 0.0 x10^3/uL (0.0-0.7) Basophils # (Auto) 0.1 x10^3/uL (0.0-0.2) 0.0 x10^3/uL (0.0-0.2) Sodium Level 148 mmol/L (136-145) 143 mmol/L (136-145) Potassium Level 3.9 mmol/L (3.5-5.1) 3.3 mmol/L (3.5-5.1) Chloride Level 110 mmol/L (98-107) 108 mmol/L (98-107) Carbon Dioxide Level 24 mmol/L (21-32) 26 mmol/L (21-32) Anion Gap 14 (6-14) 9 (6-14) Blood Urea Nitrogen 6 mg/dL (7-20) 6 mg/dL (7-20) Creatinine 1.2 mg/dL (0.6-1.0) 0.9 mg/dL (0.6-1.0) Estimated GFR (Cockcroft-Gault) 50.8 70.8 BUN/Creatinine Ratio 5 (6-20) 7 (6-20) Glucose Level 113 mg/dL (70-99) 120 mg/dL (70-99) Calcium Level 8.1 mg/dL (8.5-10.1) 8.2 mg/dL (8.5-10.1) Total Bilirubin 0.4 mg/dL (0.2-1.0) 0.5 mg/dL (0.2-1.0) Aspartate Amino Transf (AST/SGOT) 36 U/L (15-37) 38 U/L (15-37) Alanine Aminotransferase (ALT/SGPT) 27 U/L (14-59) 25 U/L (14-59) Alkaline Phosphatase 65 U/L (46-116) 65 U/L (46-116) Total Protein 5.5 g/dL (6.4-8.2) 5.8 g/dL (6.4-8.2) Albumin 2.5 g/dL (3.4-5.0) 2.3 g/dL (3.4-5.0) Albumin/Globulin Ratio 0.8 (1.0-1.7) 0.7 (1.0-1.7) Phosphorus Level 3.6 mg/dL (2.6-4.7) Magnesium Level 2.0 mg/dL (1.8-2.4) Laboratory Tests Test 12/10/20 07:55 12/11/20 05:55 White Blood Count 13.7 x10^3/uL (4.0-11.0) 13.3 x10^3/uL (4.0-11.0) Red Blood Count 3.10 x10^6/uL (3.50-5.40) 3.09 x10^6/uL (3.50-5.40) Hemoglobin 10.3 g/dL (12.0-15.5) 10.1 g/dL (12.0-15.5) Hematocrit 30.6 % (36.0-47.0) 30.2 % (36.0-47.0) Mean Corpuscular Volume 99 fL (79-100) 98 fL (79-100) Mean Corpuscular Hemoglobin 33 pg (25-35) 33 pg (25-35) Mean Corpuscular Hemoglobin Concent 34 g/dL (31-37) 34 g/dL (31-37) Red Cell Distribution Width 19.6 % (11.5-14.5) 19.3 % (11.5-14.5) Platelet Count 212 x10^3/uL (140-400) 209 x10^3/uL (140-400) Neutrophils (%) (Auto) 76 % (31-73) 72 % (31-73) Lymphocytes (%) (Auto) 18 % (24-48) 20 % (24-48) Monocytes (%) (Auto) 6 % (0-9) 8 % (0-9) Eosinophils (%) (Auto) 0 % (0-3) 0 % (0-3) Basophils (%) (Auto) 0 % (0-3) 0 % (0-3) Neutrophils # (Auto) 10.3 x10^3/uL (1.8-7.7) 9.6 x10^3/uL (1.8-7.7) Lymphocytes # (Auto) 2.4 x10^3/uL (1.0-4.8) 2.7 x10^3/uL (1.0-4.8) Monocytes # (Auto) 0.9 x10^3/uL (0.0-1.1) 1.0 x10^3/uL (0.0-1.1) Eosinophils # (Auto) 0.0 x10^3/uL (0.0-0.7) 0.0 x10^3/uL (0.0-0.7) Basophils # (Auto) 0.1 x10^3/uL (0.0-0.2) 0.0 x10^3/uL (0.0-0.2) Sodium Level 148 mmol/L (136-145) 143 mmol/L (136-145) Potassium Level 3.9 mmol/L (3.5-5.1) 3.3 mmol/L (3.5-5.1) Chloride Level 110 mmol/L (98-107) 108 mmol/L (98-107) Carbon Dioxide Level 24 mmol/L (21-32) 26 mmol/L (21-32) Anion Gap 14 (6-14) 9 (6-14) Blood Urea Nitrogen 6 mg/dL (7-20) 6 mg/dL (7-20) Creatinine 1.2 mg/dL (0.6-1.0) 0.9 mg/dL (0.6-1.0) Estimated GFR (Cockcroft-Gault) 50.8 70.8 BUN/Creatinine Ratio 5 (6-20) 7 (6-20) Glucose Level 113 mg/dL (70-99) 120 mg/dL (70-99) Calcium Level 8.1 mg/dL (8.5-10.1) 8.2 mg/dL (8.5-10.1) Total Bilirubin 0.4 mg/dL (0.2-1.0) 0.5 mg/dL (0.2-1.0) Aspartate Amino Transf (AST/SGOT) 36 U/L (15-37) 38 U/L (15-37) Alanine Aminotransferase (ALT/SGPT) 27 U/L (14-59) 25 U/L (14-59) Alkaline Phosphatase 65 U/L (46-116) 65 U/L (46-116) Total Protein 5.5 g/dL (6.4-8.2) 5.8 g/dL (6.4-8.2) Albumin 2.5 g/dL (3.4-5.0) 2.3 g/dL (3.4-5.0) Albumin/Globulin Ratio 0.8 (1.0-1.7) 0.7 (1.0-1.7) Phosphorus Level 3.6 mg/dL (2.6-4.7) Magnesium Level 2.0 mg/dL (1.8-2.4) Medications Active Scripts Medications Dose Route/Sig Max Daily Dose Days Date Category Vancomycin Hcl 125 Mg Capsule 1 Cap PO QID 10 06/12/20 Rx Fenofibrate (Fenofibrate,Micronized) 134 Mg Capsule 134 Mg PO DAILY 05/25/20 Reported Potassium Chloride (Potassium Chloride) 20 Meq Tablet.er 20 Meq PO BIDAC 30 05/07/20 Rx Reglan (Metoclopramide Hcl) 10 Mg Tablet 10 Mg PO TID PRN 03/28/20 Rx Compazine (Prochlorperazine Maleate) 10 Mg Tablet 1 Tab PO Q6HRS 03/26/20 Rx Ondansetron Odt (Ondansetron) 4 Mg Tab.rapdis 1 Tab PO PRN Q6-8HRS 03/24/20 Rx Nexium Capsule (Esomeprazole Magnesium) 40 Mg Capsule. 1 Cap PO DAILY 03/20/20 Reported Amitriptyline Hcl 10 Mg Tablet 1 Tab PO QHS 90 05/27/19 Rx Celexa (Citalopram Hydrobromide) 20 Mg Tablet 1 Tab PO QHS 05/27/19 Rx Comments cxr 12/09 stable Impression . IMPRESSION: 1. Acute respiratory failure secondary to cardiac arrest. on RA now 2. Ventricular fibrillation cardiac arrest requiring 10 minutes of advanced cardiac life support protocol with return of spontaneous circulation. Unclear etiology. 3. Severe hypokalemia, corrected 4. Severe hypophosphatemia, corrected 5. Mildly increased bilirubin 6. History of hepatic steatosis. 7. History of tobacco use. 8. Low Mg 9. SARS-CoV-2 negative 10. Leukocytosis suspect reactive Echo report Critical Value: No <Conclusion> The left ventricular systolic function is normal. The Ejection Fraction is 55%. There is normal LV segmental wall motion. Trace mitral regurgitation. Trace tricuspid regurgitation with an estimated PAP of 22 mmHg. There is no evidence of significant pericardial effusion. Plan . Updated 12/11 0n RA start protonix for gerd may help n/v cardiology recommended cardiac cath she declined electrolytes corrected hep sq for dvt prophylaxis Discussed with RN Updated 12/10 0n RA cardiology recommended cardiac cath she declined electrolytes corrected hep sq for dvt prophylaxis Discussed with RN Updated 12/09 Patient currently doing well on CPAP trial fully awake will proceed with extubation Appreciate cardiology input We will continue current support electrolytes corrected Discussed with RT and RN and Total cumulative critical care time of 30 minutes, reviewing the current documentation, examining the patient. Reviewing labs chest x-ray EKG. And formulating a plan Updated 12/08 Patient currently being rewarmed Appreciate cardiology input We will continue current support I suspect patient will awaken once she is warmed up, Discussed with RT and RN and Total cumulative critical care time of 30 minutes, reviewing the current documentation, examining the patient. Reviewing labs chest x-ray EKG. And formulating a plan 12/07 1. Continue present assist control mode. Follow ABGs and make necessary adjustment. 2. Continue hypothermic protocol. 3. Cardiology consultation and will consider need for cardiac catheterization. 4. Deep venous thrombosis prophylaxis with heparin. 5. Obtain D-dimers. 6. Stress ulcer prophylaxis. 7. Once hypothermic protocol is over, we will assess for mental status to make sure she does not have any anoxic brain injury. 8. We will not need an echocardiogram. 9. Discussed with RN /RT , Patients father and Cardiology. cath soon Total critical care time 40 minutes including review of the chart, imaging studies, lab, assessment and decision making. MARINA LEA MD Dec 11, 2020 07:43
[2020-12-11] MEDS ORDERED: PANTOPRAZOLE 40 MG TABLET.DR. PO ONE (07:45)
[2020-12-11] MEDS: CALCIUM CARB/VIT D3 500/200 TABLET. PO SCH ×2 (08:00→16:58)
[2020-12-11 08:10] LABS: UR POTASSIUM 16.3 mmol/L (Not Estab.)
[2020-12-11 08:10] LABS: UR POTASSIUM 25.5 mmol/L (Not Estab.)
--- NOTE | 2020-12-11 08:25 | PDOC ---
PROGRESS NOTES Date of Service: DATE: 12/11/20 TIME: 08:25 Subjective Subjective Somnolent but comfortable, no new symptoms Objective Objective Vital Signs Date Time Temp Pulse Resp B/P (MAP) Pulse Ox O2 Delivery O2 Flow Rate FiO2 12/11/20 07:32 Room Air 12/11/20 07:00 98.6 58 133/87 (102) 100 98.6 12/10/20 22:15 20 35.0 Intake and Output 12/11/20 07:00 Intake Total 1000 ml Output Total 350 ml Balance 650 ml Intake Oral 50 ml IV Total 950 ml Emesis 100 ml Oral Regurgitation 250 ml # Voids 5 Physical Exam Abdomen: Normal bowel sounds, Soft, No tenderness Heart: Regular rate, Normal S1, Normal S2, No murmurs, Other Extremities: No clubbing, No cyanosis General: Alert, Oriented X3, Cooperative, No acute distress HEENT: Atraumatic, PERRLA Lungs: Clear to auscultation, Other (Scattered crepitations bilaterally) MUSCULOSKELETAL: No joint tenderness, No deformity Neuro: Other (UNABLE TO ASSESS) Psych/Mental Status: Other (SEDATED) Skin: No breakdown Assessment Assessment 1. Nausea/vomiting, gastroparesis; treat per gastroenterology team. 2. VFIB arrest in the setting of significant electrolyte abnormalities and QT prolongation. QTC 506. Approximately 10 mins prior to ROSC. No further arrhythmias noted on tele. 2D echo showed normal LV systolic function without any wall motion abnormalities. The option of cardiac catheterization was discussed with patient and family but they would like to defer for now. 3. TIA: Improved 4. Severe hypokalemia, hypomagnesemia; magnesium level normal after replacement, she is still hypokalemic. Continue to replace orally. 5. Acute respiratory failure secondary to cardiac arrest; s/p extubation. Pulmonary team following. 6. Anxiety, depression Plan Plan of Care Problems Medical Problems: (1) Cardiac arrest Status: Acute (2) Hypokalemia Status: Acute (3) Hypomagnesemia Status: Acute (4) Nausea and vomiting Status: Acute (5) Prolonged QT interval Status: Acute Comment Review of Relevant I have reviewed the following items josué (where applicable) has been applied. Labs Laboratory Tests Test 12/11/20 05:55 White Blood Count 13.3 x10^3/uL (4.0-11.0) Red Blood Count 3.09 x10^6/uL (3.50-5.40) Hemoglobin 10.1 g/dL (12.0-15.5) Hematocrit 30.2 % (36.0-47.0) Mean Corpuscular Volume 98 fL (79-100) Mean Corpuscular Hemoglobin 33 pg (25-35) Mean Corpuscular Hemoglobin Concent 34 g/dL (31-37) Red Cell Distribution Width 19.3 % (11.5-14.5) Platelet Count 209 x10^3/uL (140-400) Neutrophils (%) (Auto) 72 % (31-73) Lymphocytes (%) (Auto) 20 % (24-48) Monocytes (%) (Auto) 8 % (0-9) Eosinophils (%) (Auto) 0 % (0-3) Basophils (%) (Auto) 0 % (0-3) Neutrophils # (Auto) 9.6 x10^3/uL (1.8-7.7) Lymphocytes # (Auto) 2.7 x10^3/uL (1.0-4.8) Monocytes # (Auto) 1.0 x10^3/uL (0.0-1.1) Eosinophils # (Auto) 0.0 x10^3/uL (0.0-0.7) Basophils # (Auto) 0.0 x10^3/uL (0.0-0.2) Sodium Level 143 mmol/L (136-145) Potassium Level 3.3 mmol/L (3.5-5.1) Chloride Level 108 mmol/L (98-107) Carbon Dioxide Level 26 mmol/L (21-32) Anion Gap 9 (6-14) Blood Urea Nitrogen 6 mg/dL (7-20) Creatinine 0.9 mg/dL (0.6-1.0) Estimated GFR (Cockcroft-Gault) 70.8 BUN/Creatinine Ratio 7 (6-20) Glucose Level 120 mg/dL (70-99) Calcium Level 8.2 mg/dL (8.5-10.1) Phosphorus Level 3.6 mg/dL (2.6-4.7) Magnesium Level 2.0 mg/dL (1.8-2.4) Total Bilirubin 0.5 mg/dL (0.2-1.0) Aspartate Amino Transf (AST/SGOT) 38 U/L (15-37) Alanine Aminotransferase (ALT/SGPT) 25 U/L (14-59) Alkaline Phosphatase 65 U/L (46-116) Total Protein 5.8 g/dL (6.4-8.2) Albumin 2.3 g/dL (3.4-5.0) Albumin/Globulin Ratio 0.7 (1.0-1.7) Microbiology 12/08/20 Blood Culture - Preliminary, Resulted NO GROWTH AFTER 2 DAYS 12/07/20 Urine Culture - Final, Complete Medications Current Medications Calcium/Vitamin D (Oscal D 500mg/ 200uts) 1 tab BIDWMEALS PO ; Start 12/10/20 at 17:00 Fentanyl Citrate (Fentanyl 2ml Vial) 50 mcg PRN Q3HRS PRN IVP PAIN Last administered on 12/11/20at 07:32; Start 12/10/20 at 21:00 Heparin Sodium (Porcine) (Heparin Sodium) 5,000 unit BID SQ ; Start 12/11/20 at 09:00 Magnesium Sulfate 50 ml @ 25 mls/hr PRN DAILY PRN IV for Mag < 1.7 on am labs; Start 12/10/20 at 13:15 Pantoprazole Sodium (Protonix) 40 mg 1X ONCE PO ; Start 12/11/20 at 07:45; Stop 12/11/20 at 07:46; Status DC Pantoprazole Sodium (Protonix) 40 mg DAILYAC PO ; Start 12/12/20 at 07:30 Prochlorperazine Edisylate (Compazine) 10 mg PRN Q4HRS PRN IV NAUSEA/VOMITING Last administered on 12/11/20at 01:26; Start 12/10/20 at 21:00 Vitals/I & O Vital Sign - Last 24 Hours 12/10/20 12/10/20 12/10/20 12/10/20 11:00 12:30 15:10 19:00 Temp 98.9 98.2 98.6 98.9 98.2 98.6 Pulse 67 50 78 74 B/P (MAP) 168/101 (123) 154/93 (113) 169/104 (125) 143/90 (107) Pulse Ox 97 99 96 94 O2 Delivery Room Air Room Air Room Air Room Air 12/10/20 12/10/20 12/10/2021 20:00 21:45 22:15 23:00 Temp 98.8 98.8 Pulse 46 Resp 14 20 B/P (MAP) 155/86 (109) Pulse Ox 96 99 99 O2 Delivery Room Air Room Air Room Air Room Air O2 Flow Rate 35.0 35.0 12/11/20 12/11/20 12/11/20 03:00 07:00 07:32 Temp 98.3 98.6 98.3 98.6 Pulse 46 58 B/P (MAP) 135/88 (104) 133/87 (102) Pulse Ox 97 100 O2 Delivery Room Air Room Air Room Air Intake and Output 12/10/20 12/10/20 12/11/20 15:00 23:00 07:00 Intake Total 1000 ml 0 ml Output Total 50 ml 300 ml Balance -50 ml 700 ml 0 ml VISHAL LAI MD Dec 11, 2020 08:25
[2020-12-11] MEDS ORDERED: ELECTROLYTE (ICU) PROTOCOL. MC PRN (08:30)
[2020-12-11] MEDS ORDERED: TPN PER PHARMACY MC PRN (08:30)
--- NOTE | 2020-12-11 08:50 | PDOC ---
Infectious Disease Note Subjective: Subjective Sleepy but arousable Continues to have nausea and vomiting Some dry cough Has some chest wall pain Denies fevers, chills vomiting, diarrhea, abdominal pain, rash, symptoms Vital Signs: Vital Signs Vital Signs Date Time Temp Pulse Resp B/P (MAP) Pulse Ox O2 Delivery O2 Flow Rate FiO2 12/11/20 08:48 100 Room Air 12/11/20 07:00 98.6 58 133/87 (102) 98.6 12/10/20 22:15 20 35.0 Physical Exam: PHYSICAL EXAM GENERAL: Sleepy but arousable in no acute distress HEENT: Normocephalic, atraumatic NECK: Supple, full range of motion. No lymphadenopathy. LUNGS: Decreased breath sound at bases HEART: S1, S2, no murmurs. ABDOMEN: Soft, nontender, nondistended. GENITOURINARY: Hendrickson in place. EXTREMITIES: No edema, no cyanosis. DERMATOLOGIC: Warm, dry. No generalized rash. Multiple tattoos. NEUROLOGIC: Somnolent but arousable moves all 4 extremities LINES: Right art line removed PIV looks clean. Medications: Inpatient Meds: Medications reviewed. Labs: Lab Laboratory Tests Test 12/11/20 05:55 White Blood Count 13.3 x10^3/uL (4.0-11.0) Red Blood Count 3.09 x10^6/uL (3.50-5.40) Hemoglobin 10.1 g/dL (12.0-15.5) Hematocrit 30.2 % (36.0-47.0) Mean Corpuscular Volume 98 fL (79-100) Mean Corpuscular Hemoglobin 33 pg (25-35) Mean Corpuscular Hemoglobin Concent 34 g/dL (31-37) Red Cell Distribution Width 19.3 % (11.5-14.5) Platelet Count 209 x10^3/uL (140-400) Neutrophils (%) (Auto) 72 % (31-73) Lymphocytes (%) (Auto) 20 % (24-48) Monocytes (%) (Auto) 8 % (0-9) Eosinophils (%) (Auto) 0 % (0-3) Basophils (%) (Auto) 0 % (0-3) Neutrophils # (Auto) 9.6 x10^3/uL (1.8-7.7) Lymphocytes # (Auto) 2.7 x10^3/uL (1.0-4.8) Monocytes # (Auto) 1.0 x10^3/uL (0.0-1.1) Eosinophils # (Auto) 0.0 x10^3/uL (0.0-0.7) Basophils # (Auto) 0.0 x10^3/uL (0.0-0.2) Sodium Level 143 mmol/L (136-145) Potassium Level 3.3 mmol/L (3.5-5.1) Chloride Level 108 mmol/L (98-107) Carbon Dioxide Level 26 mmol/L (21-32) Anion Gap 9 (6-14) Blood Urea Nitrogen 6 mg/dL (7-20) Creatinine 0.9 mg/dL (0.6-1.0) Estimated GFR (Cockcroft-Gault) 70.8 BUN/Creatinine Ratio 7 (6-20) Glucose Level 120 mg/dL (70-99) Calcium Level 8.2 mg/dL (8.5-10.1) Phosphorus Level 3.6 mg/dL (2.6-4.7) Magnesium Level 2.0 mg/dL (1.8-2.4) Total Bilirubin 0.5 mg/dL (0.2-1.0) Aspartate Amino Transf (AST/SGOT) 38 U/L (15-37) Alanine Aminotransferase (ALT/SGPT) 25 U/L (14-59) Alkaline Phosphatase 65 U/L (46-116) Total Protein 5.8 g/dL (6.4-8.2) Albumin 2.3 g/dL (3.4-5.0) Albumin/Globulin Ratio 0.7 (1.0-1.7) Objective: Assessment: 1. Acute hypoxic respiratory failure secondary to cardiac arrest. 2. V-Fib ,cardiac arrest, status post CPR. 3. Severe hypokalemia, hypomagnesemia, hypophosphatemia, hypocalcemia. Improving 4. Nausea ,Vomitting, Mild increased bilirubin level. 5. Pyuria urine cultures negative 6. History of tobacco use. 7. Encephalopathy appears multifactorial, no clinical evidence of meningitis 8. Leukocytosis likely reactive and now on steroids 9. History of Kong's esophagus, reflux esophagitis, hepatic steatosis, Clostridium difficile colitis. 10. History of left groin abscess with MRSA, Peptostreptococcus beta-lactam is negative. Plan: Plan of Care DC cefepime Maintain aspiration precautions Monitor labs and cultures Continue supportive care Discussed with father at bedside Discussed with CARINE CHERRY MD Dec 11, 2020 08:49
[2020-12-11] MEDS: POTASSIUM CHLORIDE 20MEQ 100 ML IV SCH ×2 (08:51→10:00)
[2020-12-11] MEDS: PANTOPRAZOLE IV PUSH 40 MG VIAL. IVP SCH (08:53)
[2020-12-11] MEDS: HYDROCORTISONE SOD SUCC/PF 100 MG/2 ML VIAL. IVP SCH ×2 (08:54→16:12)
[2020-12-11] MEDS: CEFEPIME HCL IV Push 2 GM VIAL. IVP SCH (08:54)
[2020-12-11] MEDS: HEPARIN for SUB-Q USE 5,000 UNIT/ML VIAL. SQ SCH ×2 (09:04→20:21)
--- NOTE | 2020-12-11 09:21 | PDOC ---
DATE OF SERVICE: DOS: DATE: 12/11/20 TIME: 09:19 SUBJECTIVE ROS Follow-up for multiple electrolyte abnormalities and TIA Patient remains somewhat somnolent. Continues to have significant nausea vomiting at this time. CVS: no Orthopnea, no CP RESP: no SOB, no MELENDEZ GI: + Nausea, + Vomiting : NO Dysuria, NO Urgency OBJECTIVE Vital Signs Vital Signs Date Time Temp Pulse Resp B/P (MAP) Pulse Ox O2 Delivery O2 Flow Rate FiO2 12/11/20 08:48 100 Room Air 12/11/20 07:00 98.6 58 133/87 (102) 98.6 12/10/20 22:15 20 35.0 I & 0 Intake and Output 12/11/20 07:00 Intake Total 1000 ml Output Total 350 ml Balance 650 ml Intake Oral 50 ml IV Total 950 ml Emesis 100 ml Oral Regurgitation 250 ml # Voids 5 PHYSICAL EXAM Physical Exam GEN: Sedated and fast asleep currently EYES: Sclera anicteric, Conjunctiva Normal EN: No EN Drainage, Mucous Membranes slightly dry currently NECK: no JVD, no JVP, Supple, no Thyromegaly CVS: S1S2, no Murmur, No Gallop, No Rub,no Edema: Bradycardic currently RESP: no Rales, no Rhonchi,no Acc. Muscle Use GI: BS + ve, NO Bruit, Non Tender, Non Distended : no CVA tenderness, no Suprapubic Tenderness DIAGNOSIS/ASSESSMENT Assessment & Plan TIA-ATN: Now resolved VFIB arrest previously: Currently bradycardic but asymptomatic HYPOKALEMIA: Replace with ICU protocol HYPOMAGNESEMIA: Adequate currently Nausea vomiting will defer to other specialists. Given ongoing poor p.o. intake, consider starting TPN Hypernatremia: now resolved with hypotonic IV fluids COMMENT/RELEVANT DATA Meds Current Medications Medications (Trade) Dose Ordered Sig/Kwaku Start Time Stop Time Status Last Admin Dose Admin Acetaminophen (Tylenol) 650 mg Q4H 12/07/20 08:00 12/08/20 22:07 DC 12/08/20 16:22 650 MG Amiodarone HCl (Cordarone) 300 mg STK-MED ONCE 12/07/20 12:00 12/07/20 15:47 DC Atropine Sulfate (ATROPINE 0.5mg SYRINGE) 0.5 mg PRN Q5MIN PRN 12/09/20 08:45 Buspirone HCl (Buspar) 30 mg Q8H 12/07/20 08:00 12/08/20 21:06 DC 12/08/20 16:18 30 MG Calcium Gluconate 1000 mg/Sodium Chloride 110 ml @ 220 mls/hr 1X ONCE 12/09/20 14:00 12/09/20 14:29 DC 12/09/20 14:03 220 MLS/HR Calcium/Vitamin D (Oscal D 500mg/ 200uts) 1 tab [id number] 12/10/20 17:00 Cefepime HCl (Maxipime) 2 gm Q12HR 12/08/20 21:30 12/11/20 08:54 2 GM Chlorhexidine Gluconate (Peridex) 15 ml BID 12/07/20 09:00 12/07/20 18:44 DC 12/07/20 09:00 15 ML Dexmedetomidine HCl 400 mcg/ Sodium Chloride 100 ml @ 0 mls/hr CONT PRN 12/09/20 08:45 Dextrose (Dextrose 50%-Water Syringe) 12.5 gm PRN Q15MIN PRN 12/08/20 10:00 12/08/20 10:04 50 GM Dextrose/Sodium Chloride 1,000 ml @ 75 mls/hr [id number] 12/08/20 13:45 12/08/20 18:42 DC 12/08/20 14:16 75 MLS/HR Diphenhydramine HCl (Benadryl) 50 mg 1X ONCE 12/07/20 05:30 12/07/20 05:31 DC 12/07/20 05:14 50 MG Dopamine HCl/ Dextrose 250 ml @ 13.481 mls/ hr CONT PRN 12/08/20 06:45 Epinephrine HCl (EPINEPHrine SYRINGE) 3 mg STK-MED ONCE 12/07/20 12:00 12/07/20 15:47 DC Famotidine (Pepcid Vial) 20 mg BID 12/07/20 09:00 12/07/20 10:56 DC Fentanyl Citrate (Fentanyl 2ml Vial) 50 mcg PRN Q3HRS PRN 12/10/20 21:00 12/11/20 07:32 50 MCG Glycerin/ Hypromellose/ Polyethylene (Artificial Tears) 1 drop PRN Q15MIN PRN 12/07/20 08:00 12/10/20 21:08 DC Haloperidol Lactate (Haldol Inj) 5 mg 1X ONCE 12/07/20 05:30 12/07/20 05:31 DC 12/07/20 05:14 5 MG Heparin Sodium (Porcine) (Heparin Sodium) 5,000 unit BID 12/11/20 09:00 12/11/20 09:04 5,000 UNIT Hydrocortisone Sodium Succinate (Solu-CORTEF) 100 mg Q12HR 12/08/20 15:30 12/11/20 08:54 100 MG Info (Icu Electrolyte Protocol) 1 ea CONT PRN PRN 12/11/20 08:30 Info (Tpn Per Pharmacy) 1 each PRN DAILY PRN 12/11/20 08:30 Lorazepam (Ativan Inj) 2 mg PRN Q6HRS PRN 12/09/20 19:00 12/10/20 20:46 2 MG Magnesium Sulfate 50 ml @ 25 mls/hr PRN DAILY PRN 12/10/20 13:15 Magnesium Sulfate/ Dextrose 100 ml @ 100 mls/hr 1X ONCE 12/08/20 19:00 12/08/20 19:59 DC 12/08/20 18:51 100 MLS/HR Magnesium Sulfate/ Dextrose (Magnesium Sulfate PREMIX 1GM) 1 gm STK-MED ONCE 12/07/20 12:00 12/07/20 15:47 DC Metoclopramide HCl (Reglan Vial) 10 mg 1X ONCE 12/07/20 05:30 12/07/20 05:05 DC Midazolam HCl (Versed) 5 mg STK-MED ONCE 12/07/20 12:00 12/07/20 15:47 DC Norepinephrine Bitartrate 8 mg/ Dextrose 258 ml @ 13.913 mls/ hr CONT PRN 12/08/20 15:00 12/08/20 15:11 13.5 MLS/HR Ondansetron HCl (Zofran) 4 mg PRN Q8HRS PRN 12/09/20 13:45 12/09/20 15:37 DC 12/09/20 13:52 4 MG Pantoprazole Sodium (PROTONIX VIAL for IV PUSH) 40 mg DAILYAC 12/11/20 09:00 12/11/20 08:53 40 MG Pantoprazole Sodium (Protonix) 40 mg 1X ONCE 12/11/20 07:45 12/11/20 07:46 Cancel Potassium Chloride/Dextrose/ Sod Cl 1,000 ml @ 75 mls/hr [id number] 12/09/20 11:45 12/11/20 08:23 DC 12/11/20 05:12 75 MLS/HR Potassium Chloride/Sodium Chloride 1,000 ml @ 125 mls/hr Q8H 12/07/20 06:30 12/07/20 14:29 DC 12/07/20 06:30 125 MLS/HR Potassium Chloride/Water 100 ml @ 100 mls/hr Q1H 12/11/20 09:00 12/11/20 10:59 12/11/20 08:51 100 MLS/HR Potassium Phosphate 10 mmol/ Sodium Chloride 103.3333 ml @ 51.667 m... Q2H 12/07/20 12:00 12/07/20 15:59 DC 12/07/20 13:43 51.667 MLS/HR Prochlorperazine Edisylate (Compazine) 10 mg PRN Q4HRS PRN 12/10/20 21:00 12/11/20 09:06 10 MG Promethazine HCl (Phenergan) 12.5 mg PRN Q6HRS PRN 12/09/20 16:45 12/09/20 17:07 DC Propofol 100 ml @ 0 mls/hr CONT PRN 12/07/20 08:00 12/10/20 21:08 DC 12/09/20 04:08 13 MLS/HR Ringer's Solution 500 ml @ 1,000 mls/hr 1X ONCE 12/07/20 05:30 12/07/20 05:59 DC 12/07/20 05:13 1,000 MLS/HR Sodium Bicarbonate (Sodium Bicarb Adult 8.4% Syr) 50 meq STK-MED ONCE 12/07/20 12:00 12/07/20 15:47 DC Sodium Chloride 500 ml @ 500 mls/hr 1X PRN PRN 12/09/20 08:45 Vecuronium [place] (Norcuron Bolus) 6 mg PRN Q1HR PRN 12/07/20 08:00 12/10/20 21:08 DC 12/07/20 08:47 6 MG Lab Laboratory Tests Test 12/11/20 05:55 White Blood Count 13.3 x10^3/uL (4.0-11.0) Red Blood Count 3.09 x10^6/uL (3.50-5.40) Hemoglobin 10.1 g/dL (12.0-15.5) Hematocrit 30.2 % (36.0-47.0) Mean Corpuscular Volume 98 fL (79-100) Mean Corpuscular Hemoglobin 33 pg (25-35) Mean Corpuscular Hemoglobin Concent 34 g/dL (31-37) Red Cell Distribution Width 19.3 % (11.5-14.5) Platelet Count 209 x10^3/uL (140-400) Neutrophils (%) (Auto) 72 % (31-73) Lymphocytes (%) (Auto) 20 % (24-48) Monocytes (%) (Auto) 8 % (0-9) Eosinophils (%) (Auto) 0 % (0-3) Basophils (%) (Auto) 0 % (0-3) Neutrophils # (Auto) 9.6 x10^3/uL (1.8-7.7) Lymphocytes # (Auto) 2.7 x10^3/uL (1.0-4.8) Monocytes # (Auto) 1.0 x10^3/uL (0.0-1.1) Eosinophils # (Auto) 0.0 x10^3/uL (0.0-0.7) Basophils # (Auto) 0.0 x10^3/uL (0.0-0.2) Sodium Level 143 mmol/L (136-145) Potassium Level 3.3 mmol/L (3.5-5.1) Chloride Level 108 mmol/L (98-107) Carbon Dioxide Level 26 mmol/L (21-32) Anion Gap 9 (6-14) Blood Urea Nitrogen 6 mg/dL (7-20) Creatinine 0.9 mg/dL (0.6-1.0) Estimated GFR (Cockcroft-Gault) 70.8 BUN/Creatinine Ratio 7 (6-20) Glucose Level 120 mg/dL (70-99) Calcium Level 8.2 mg/dL (8.5-10.1) Phosphorus Level 3.6 mg/dL (2.6-4.7) Magnesium Level 2.0 mg/dL (1.8-2.4) Total Bilirubin 0.5 mg/dL (0.2-1.0) Aspartate Amino Transf (AST/SGOT) 38 U/L (15-37) Alanine Aminotransferase (ALT/SGPT) 25 U/L (14-59) Alkaline Phosphatase 65 U/L (46-116) Total Protein 5.8 g/dL (6.4-8.2) Albumin 2.3 g/dL (3.4-5.0) Albumin/Globulin Ratio 0.7 (1.0-1.7) Results All relevant outside records, renal labs, imaging studies, telemetry/EKG's were reviewed. Justicifation of Admission Dx: Justifications for Admission: Justification of Admission Dx: Yes CHF: Sev. Electrolyte Abnormal GURMEET MIR MD Dec 11, 2020 09:21
--- NOTE | 2020-12-11 10:47 | PDOC ---
PROGRESS NOTES Date of Service: DATE: 12/11/20 TIME: 10:46 Chief Complaint Chief Complaint Images Images Chest radiograph interpretation: There is an ET tube with its tip at level clavicles. There is an enteric tube seen at least as far distal as the mid stomach. The heart and pulmonary vessels appear normal. The lungs and pleural margins are clear. Impression: ET tube and enteric tube well-positioned. VTE Prophylaxis Ordered VTE Prophylaxis Devices: No VTE Pharmacological Prophylaxi: Yes Assessment/Plan Assessment/Plan IMPRESSION Anoxic encephalopathy post torsades and ventricular fibrillation, rewarmed from hypothermia, improved, extubated Ventricular fibrillation Cardiac arrest -likely due to torsades with prolonged QT worsened by hypokalemia, hypomagnesemia as well as Reglan and Haldol administration. Hypokalemia -replace IV loss likely due to 4 days of persistent vomiting , however need to consider other causes SUCH as adrenal insufficiency Gastroparesis with Nausea and vomiting -has not tolerated erythromycin in the past and will with this event Reglan may need to be substituted. GI consulted Prolonged QT interval -worsened by hypokalemia hypomagnesemia and prolonged Regl an use. Hypomagnesemia -replaced due to torsades SEPSIS khalida Osteoarthritis bilateral ankles -has outpatient orthopedic follow-up Anxiety with depression -we will hold SSRI while patient is on ventilator. Respiratory failure - due to cardiac arrest. No pulmonary history. Pulmonology consulted No intracranial hemorrhage. No mass effect. No hydrocephalus OCC THC use EKG with RBBB and QT prolongation with QTc of 506. Mg 1.6 and K 2.5 upon arrival. Acute respiratory failure secondary to cardiac arrest; s/p extubation. DAY 2 History of Kong's esophagus, reflux esophagitis, hepatic steatosis, Clostridium difficile colitis. History of remote left groin abscess with MRSA, Peptostreptococcus beta-lactam is negative. ADRENAL INSUFFICIENCY PLAN admit ICU BED FEN - NPO PPX - pepcid, lovenox FULL CODE Dispo - ICU for cardiac arrest mrsa screen neg og placement iv hydrocortisone 100mg q 12 hrs 24 hr urine for k random urine k ACTH PENDING D/C CEFIPIME BID IV CALCIUM GLUCONATE 1 GM X 1 4-16 vit D TOTAL LEVEL, SERUM BEGIN OSCAL D 500 PO BID CHG HYDROCORTISONE IV TO 80 MG Q AM 0800, 40 MG AT 1600 DAILY CC time 35 minutes Justifications for Admission Justifications for Admission Other Justification History of Present Illness History of Present Illness Identification/Chief Complaint Chief Complaint Nausea and vomiting Source Source: Caregiver, Chart review History of Present Illness History of Present Illness Ms Lafleur is a 35yo F w/ PMHx Anxiety, Depression, GERD, barrets, High Cholesterol, gastroparesis, OA bilateral ankles, smoker who presented to the ED c/o intractable nausea and vomiting that progressed over the past 3 days to the point she was unable to hold down liquids or her reglan. She reported to ED she had more than 5 bouts of emesis per day. Labs significant for WBC 15.1, Hb 14.9, platelets 338, NA 138, K2.5, magnesium 1.6, BUN 5, CR 1, glucose 141, bilirubin 1.1, AST 67, lipase 57. She was given a bolus of lactated Ringer's and IV Reglan. No significant improvement and was given 5 mg IV Haldol. EKG was sinus tachycardia 153 bpm, prolonged QRS at 128, prolonged QTC at 506, right axis deviation, no STEMI CODE BLUE was called around 05 100 when irrigation technician. With torsades which converted to ventricular fibrillation. Patient was given IV magnesium and two 200 J shocks with ROSC. Patient was intubated during cardiac arrest and started on propofol and potassium GTT. She was not completely sedated on propofol and Versed was added. Patient seen by myself sedated on ventilator in ED. Chest radiograph with ET tube and OGT in appropriate position. Admitted ICU for further care. Past Medical History Cardiovascular: Hyperlipidemia Pulmonary: No pertinent hx GI: GERD, Other Heme/Onc: No pertinent hx Hepatobiliary: No pertinent hx Psych: Anxiety, Depression Rheumatologic: No pertinent hx Infectious disease: Other Renal/: No pertinent hx Endocrine: No pertinent hx Past Surgical History Past Surgical History: Cholecystectomy, Other Family History Family History: Family History Unknown Social History Smoke: <1 pack per day ALCOHOL: other Drugs: Marijuana Current Problem List Problem List Problems Medical Problems: (1) Cardiac arrest Status: Acute (2) Hypokalemia Status: Acute (3) Hypomagnesemia Status: Acute (4) Nausea and vomiting Status: Acute (5) Prolonged QT interval Status: Acute Current Medications Current Medications Current Medications Ringer's Solution 500 ml @ 500 mls/hr 1X ONCE IV ; Start 12/07/20 at 05:00; Stop 12/07/20 at 05:59; Status DC Ringer's Solution 500 ml @ 500 mls/hr 1X ONCE IV ; Start 12/07/20 at 05:00; Stop 12/07/20 at 05:59; Status DC Metoclopramide HCl (Reglan Vial) 10 mg 1X ONCE IVP ; Start 12/07/20 at 05:30; Stop 12/07/20 at 05:05; Status DC Ringer's Solution 500 ml @ 500 mls/hr 1X ONCE IV ; Start 12/07/20 at 05:30; Stop 12/07/20 at 06:29; Status DC Haloperidol Lactate (Haldol Inj) 5 mg STK-MED ONCE .ROUTE ; Start 12/07/20 at 05:05; Stop 12/07/20 at 05:05; Status DC Haloperidol Lactate (Haldol Inj) 5 mg 1X ONCE IVP Last administered on 12/07/20at 05:14; Start 12/07/20 at 05:30; Stop 12/07/20 at 05:31; Status DC Diphenhydramine HCl (Benadryl) 50 mg 1X ONCE IVP Last administered on 12/07/20at 05:14; Start 12/07/20 at 05:30; Stop 12/07/20 at 05:31; Status DC Ringer's Solution 500 ml @ 1,000 mls/hr 1X ONCE IV Last administered on 12/07/20at 05:13; Start 12/07/20 at 05:30; Stop 12/07/20 at 05:59; Status DC Propofol 100 ml @ As Directed STK-MED ONCE IV ; Start 12/07/20 at 05:56; Stop 12/07/20 at 05:56; Status DC Potassium Chloride/Sodium Chloride 1,000 ml @ 125 mls/hr Q8H IV Last administered on 12/07/20at 06:30; Start 12/07/20 at 06:30; Stop 12/07/20 at 14:29 Midazolam HCl (Versed) 5 mg STK-MED ONCE .ROUTE ; Start 12/07/20 at 06:29; Stop 12/07/20 at 06:30; Status DC Fentanyl Citrate 30 ml @ 0 mls/hr CONT PRN IV SEE PROTOCOL; Start 12/07/20 at 07:00 Chlorhexidine Gluconate (Peridex) 15 ml BID MM ; Start 12/07/20 at 09:00 Midazolam HCl 100 ml @ 0 mls/hr CONT PRN IV SEE PROTOCOL Last administered on 12/07/20at 07:15; Start 12/07/20 at 07:00 Magnesium Sulfate 100 ml @ 25 mls/hr 1X ONCE IV ; Start 12/07/20 at 07:30; Stop 12/07/20 at 11:29; Status UNV Famotidine (Pepcid Vial) 20 mg BID IVP ; Start 12/07/20 at 09:00; Status UNV Active Scripts Active Vancomycin Hcl 125 Mg Capsule 1 Cap PO QID 10 Days Potassium Chloride (Potassium Chloride) 20 Meq Tablet.er 20 Meq PO BIDAC 30 Days Reglan (Metoclopramide Hcl) 10 Mg Tablet 10 Mg PO TID PRN Compazine (Prochlorperazine Maleate) 10 Mg Tablet 1 Tab PO Q6HRS Ondansetron Odt (Ondansetron) 4 Mg Tab.rapdis 1 Tab PO PRN Q6-8HRS Amitriptyline Hcl 10 Mg Tablet 1 Tab PO QHS 90 Days Celexa (Citalopram Hydrobromide) 20 Mg Tablet 1 Tab PO QHS Reported Fenofibrate (Fenofibrate,Micronized) 134 Mg Capsule 134 Mg PO DAILY Nexium Capsule (Esomeprazole Magnesium) 40 Mg Capsule.dr 1 Cap PO DAILY Allergies Allergies: Coded Allergies: Corticosteroids (Glucocorticoids) (Verified Allergy, Severe, facial swelling, 05/25/20) Penicillins (Verified Allergy, Intermediate, hives, 05/25/20) I S O L A T I O N *CONTACT* (Verified Allergy, Unknown, 06/03/19) mrsa hydrocodone (Verified Adverse Reaction, Mild, Nausea, 05/25/20) Acute respiratory failure secondary to cardiac arrest; s/p extubation. Pulmonary team following. d/c cefepime 4-18 CHG HYDROCORTISONE IV TO 80 MG IV Q AM 0800, 40 MG IV AT 1600 DAILY off vent, awake , cxr stable, afebrile ca 7.2 4-18 Hypokalemia -replace IV loss likely due to 4 days of persistent vomiting , consider other causes SUCH as adrenal insufficiency k better , d/c iv cefipime, vomiting persists? cyclic vomiting vs gastroparesis new consults ID, Nephrology TRY promethazine supp 25 mg prn q 6 hrs No acute process identified in the abdomen or pelvis. ct 4-[address] ABD WNL CONT ICU MONITORING CC time 32 minutes Acute respiratory failure secondary to cardiac arrest; s/p extubation. Pulmonary team following. 4-17 Hypokalemia -replace IV loss likely due to 4 days of persistent vomiting , however need to consider other causes SUCH as adrenal insufficiency k better ,D/C iv cefipime CHG HYDROCORTISONE IV TO 80 MG Q AM 0800, 40 MG AT 1600 DAILY off vent, awake , cxr stable, afebrile ca 7.2 new consults ID, Nephrology TRY promethazine supp 25 mg prn q 6 hrs CC time 32 minutes 4-16 Hypokalemia -replace IV loss likely due to 4 days of persistent vomiting , however need to consider other causes SUCH as adrenal insufficiency k better , continue iv cefipime off vent, awake , cxr stable, afebrile ca 7.2 new consults ID, Nephrology CC time 35 minutes Vitals Vitals Vital Signs Date Time Temp Pulse Resp B/P (MAP) Pulse Ox O2 Delivery O2 Flow Rate FiO2 12/11/20 08:48 100 Room Air 12/11/20 07:00 98.6 58 133/87 (102) 98.6 12/10/20 22:15 20 35.0 Physical Exam Physical Exam GENERAL: Sleepy but arousable in no acute distress, ORIENTED, HEENT: Normocephalic, atraumatic NECK: Supple, full range of motion. No lymphadenopathy. LUNGS: Decreased breath sound at bases HEART: S1, S2, no murmurs. ABDOMEN: Soft, nontender, nondistended. GENITOURINARY: Hendrickson in place. EXTREMITIES: No edema, no cyanosis. DERMATOLOGIC: Warm, dry. No generalized rash. Multiple tattoos. NEUROLOGIC: Somnolent but arousable moves all 4 extremities CN 2-12 GROSSLY INTACT LINES: Right art line removed PIV looks clean. General: Alert, Oriented X3, Cooperative, No acute distress Heart: Regular rate, Normal S1, Normal S2, No murmurs, Other Lungs: Clear Abdomen: Normal bowel sounds, Soft, No tenderness Extremities: No clubbing, No cyanosis Skin: No breakdown Labs LABS Acute abdominal series to include an AP chest radiograph 12/10/2020 Clinical History: Vomiting. An AP portable erect digital radiograph of the chest was obtained. Supine and erect AP portable digital radiographs of the abdomen/pelvis were obtained. Comparison is made to portable chest radiograph dated 12/09/2020. The right internal jugular central venous catheter is unchanged position. The NG tube is been removed. The cardiac silhouette is borderline enlarged. The thoracic aorta is mildly tortuous. No acute pulmonary infiltrate is seen. No pleural effusion or pneumothorax is noted. Surgical clips overlie the right upper quadrant abdomen consistent with a cholecystectomy. The abdominal bowel gas pattern is nonobstructive. No free air is seen. Calcifications are seen within the pelvis consistent with phleboliths. The osseous structures are grossly intact. IMPRESSION: Nonobstructive bowel gas pattern. Electronically signed by: Jose Buitrago MD (12/11/2020 7:09 AM) [id number] DICTATED and SIGNED BY: JOSE BUITRAGO MD DATE: 12/11/20 [id number] Exam: CT of abdomen and pelvis without contrast INDICATION: Intractable vomiting TECHNIQUE: Sequential axial images through the abdomen and pelvis obtained without IV contrast. Sagittal and coronal reformatted images were reconstructed from the axial data and reviewed. Comparisons: 06/07/2020 FINDINGS: Heart size is normal. No pericardial effusion. There are small bilateral pleural effusions. Radiopacities at dependent portion lungs likely representing. Evaluation of solid organs is limited secondary to noncontrast technique. Liver, spleen, pancreas and adrenals are unremarkable. Gallbladder is surgically absent. No perinephric inflammation or hydronephrosis. No renal or ureteral calculi are identified. Bladder is distended and appears thin-walled. Uterus is not enlarged. No abnormal adnexal mass. Large and small bowel are unremarkable. Appendix is nonidentified. No free intra-abdominal air or fluid. No obstruction. Abdominal aorta has a normal course and caliber. Abdominal vasculature is patent. No enlarged intra-abdominal lymph nodes are identified. No suspicious osseous lesions or acute fractures. IMPRESSION: 1. No acute process identified in the abdomen or pelvis. 2. Small amount of free fluid in the pelvis and small bilateral pleural effusions. Correlate for volume overload. Exposure: One or more of the following in the visualized dose reduction techniques were utilized for this examination: 1. Automated exposure control 2. Adjustment of the MA and/or KV according to patient size 3. Use of iterative of reconstructive technique Electronically signed by: Enrique Irving MD (12/10/2020 4:55 PM) [facility] DICTATED and SIGNED BY: ENRIQUE IRVING MD Laboratory Tests Test 12/11/20 05:55 White Blood Count 13.3 x10^3/uL (4.0-11.0) Red Blood Count 3.09 x10^6/uL (3.50-5.40) Hemoglobin 10.1 g/dL (12.0-15.5) Hematocrit 30.2 % (36.0-47.0) Mean Corpuscular Volume 98 fL (79-100) Mean Corpuscular Hemoglobin 33 pg (25-35) Mean Corpuscular Hemoglobin Concent 34 g/dL (31-37) Red Cell Distribution Width 19.3 % (11.5-14.5) Platelet Count 209 x10^3/uL (140-400) Neutrophils (%) (Auto) 72 % (31-73) Lymphocytes (%) (Auto) 20 % (24-48) Monocytes (%) (Auto) 8 % (0-9) Eosinophils (%) (Auto) 0 % (0-3) Basophils (%) (Auto) 0 % (0-3) Neutrophils # (Auto) 9.6 x10^3/uL (1.8-7.7) Lymphocytes # (Auto) 2.7 x10^3/uL (1.0-4.8) Monocytes # (Auto) 1.0 x10^3/uL (0.0-1.1) Eosinophils # (Auto) 0.0 x10^3/uL (0.0-0.7) Basophils # (Auto) 0.0 x10^3/uL (0.0-0.2) Sodium Level 143 mmol/L (136-145) Potassium Level 3.3 mmol/L (3.5-5.1) Chloride Level 108 mmol/L (98-107) Carbon Dioxide Level 26 mmol/L (21-32) Anion Gap 9 (6-14) Blood Urea Nitrogen 6 mg/dL (7-20) Creatinine 0.9 mg/dL (0.6-1.0) Estimated GFR (Cockcroft-Gault) 70.8 BUN/Creatinine Ratio 7 (6-20) Glucose Level 120 mg/dL (70-99) Calcium Level 8.2 mg/dL (8.5-10.1) Phosphorus Level 3.6 mg/dL (2.6-4.7) Magnesium Level 2.0 mg/dL (1.8-2.4) Total Bilirubin 0.5 mg/dL (0.2-1.0) Aspartate Amino Transf (AST/SGOT) 38 U/L (15-37) Alanine Aminotransferase (ALT/SGPT) 25 U/L (14-59) Alkaline Phosphatase 65 U/L (46-116) Total Protein 5.8 g/dL (6.4-8.2) Albumin 2.3 g/dL (3.4-5.0) Albumin/Globulin Ratio 0.7 (1.0-1.7) Assessment and Plan Assessmemt and Plan Problems Medical Problems: (1) Cardiac arrest Status: Acute (2) Hypokalemia Status: Acute (3) Hypomagnesemia Status: Acute (4) Nausea and vomiting Status: Acute (5) Prolonged QT interval Status: Acute Comment Review of Relevant I have reviewed the following items josué (where applicable) has been applied. Labs Laboratory Tests Test 12/09/20 17:34 12/09/20 18:00 12/10/20 00:35 12/10/20 07:55 Glucose (Fingerstick) 116 mg/dL (70-99) Urine Potassium 25.5 mmol/L (Not Estab.) 16.3 mmol/L (Not Estab.) Urine Potassium 24 Hour Comment mmol/24 hr Urine Random Creatinine 28.8 mg/dL (Not Establ.) Urine Sodium 111 mmol/L (Not Estab.) Urine Chloride 124 mmol/L (Not Estab.) White Blood Count 13.7 x10^3/uL (4.0-11.0) Red Blood Count 3.10 x10^6/uL (3.50-5.40) Hemoglobin 10.3 g/dL (12.0-15.5) Hematocrit 30.6 % (36.0-47.0) Mean Corpuscular Volume 99 fL (79-100) Mean Corpuscular Hemoglobin 33 pg (25-35) Mean Corpuscular Hemoglobin Concent 34 g/dL (31-37) Red Cell Distribution Width 19.6 % (11.5-14.5) Platelet Count 212 x10^3/uL (140-400) Neutrophils (%) (Auto) 76 % (31-73) Lymphocytes (%) (Auto) 18 % (24-48) Monocytes (%) (Auto) 6 % (0-9) Eosinophils (%) (Auto) 0 % (0-3) Basophils (%) (Auto) 0 % (0-3) Neutrophils # (Auto) 10.3 x10^3/uL (1.8-7.7) Lymphocytes # (Auto) 2.4 x10^3/uL (1.0-4.8) Monocytes # (Auto) 0.9 x10^3/uL (0.0-1.1) Eosinophils # (Auto) 0.0 x10^3/uL (0.0-0.7) Basophils # (Auto) 0.1 x10^3/uL (0.0-0.2) Sodium Level 148 mmol/L (136-145) Potassium Level 3.9 mmol/L (3.5-5.1) Chloride Level 110 mmol/L (98-107) Carbon Dioxide Level 24 mmol/L (21-32) Anion Gap 14 (6-14) Blood Urea Nitrogen 6 mg/dL (7-20) Creatinine 1.2 mg/dL (0.6-1.0) Estimated GFR (Cockcroft-Gault) 50.8 BUN/Creatinine Ratio 5 (6-20) Glucose Level 113 mg/dL (70-99) Calcium Level 8.1 mg/dL (8.5-10.1) Total Bilirubin 0.4 mg/dL (0.2-1.0) Aspartate Amino Transf (AST/SGOT) 36 U/L (15-37) Alanine Aminotransferase (ALT/SGPT) 27 U/L (14-59) Alkaline Phosphatase 65 U/L (46-116) Total Protein 5.5 g/dL (6.4-8.2) Albumin 2.5 g/dL (3.4-5.0) Albumin/Globulin Ratio 0.8 (1.0-1.7) Test 12/11/20 05:55 White Blood Count 13.3 x10^3/uL (4.0-11.0) Red Blood Count 3.09 x10^6/uL (3.50-5.40) Hemoglobin 10.1 g/dL (12.0-15.5) Hematocrit 30.2 % (36.0-47.0) Mean Corpuscular Volume 98 fL (79-100) Mean Corpuscular Hemoglobin 33 pg (25-35) Mean Corpuscular Hemoglobin Concent 34 g/dL (31-37) Red Cell Distribution Width 19.3 % (11.5-14.5) Platelet Count 209 x10^3/uL (140-400) Neutrophils (%) (Auto) 72 % (31-73) Lymphocytes (%) (Auto) 20 % (24-48) Monocytes (%) (Auto) 8 % (0-9) Eosinophils (%) (Auto) 0 % (0-3) Basophils (%) (Auto) 0 % (0-3) Neutrophils # (Auto) 9.6 x10^3/uL (1.8-7.7) Lymphocytes # (Auto) 2.7 x10^3/uL (1.0-4.8) Monocytes # (Auto) 1.0 x10^3/uL (0.0-1.1) Eosinophils # (Auto) 0.0 x10^3/uL (0.0-0.7) Basophils # (Auto) 0.0 x10^3/uL (0.0-0.2) Sodium Level 143 mmol/L (136-145) Potassium Level 3.3 mmol/L (3.5-5.1) Chloride Level 108 mmol/L (98-107) Carbon Dioxide Level 26 mmol/L (21-32) Anion Gap 9 (6-14) Blood Urea Nitrogen 6 mg/dL (7-20) Creatinine 0.9 mg/dL (0.6-1.0) Estimated GFR (Cockcroft-Gault) 70.8 BUN/Creatinine Ratio 7 (6-20) Glucose Level 120 mg/dL (70-99) Calcium Level 8.2 mg/dL (8.5-10.1) Phosphorus Level 3.6 mg/dL (2.6-4.7) Magnesium Level 2.0 mg/dL (1.8-2.4) Total Bilirubin 0.5 mg/dL (0.2-1.0) Aspartate Amino Transf (AST/SGOT) 38 U/L (15-37) Alanine Aminotransferase (ALT/SGPT) 25 U/L (14-59) Alkaline Phosphatase 65 U/L (46-116) Total Protein 5.8 g/dL (6.4-8.2) Albumin 2.3 g/dL (3.4-5.0) Albumin/Globulin Ratio 0.7 (1.0-1.7) Laboratory Tests Test 12/11/20 05:55 White Blood Count 13.3 x10^3/uL (4.0-11.0) Red Blood Count 3.09 x10^6/uL (3.50-5.40) Hemoglobin 10.1 g/dL (12.0-15.5) Hematocrit 30.2 % (36.0-47.0) Mean Corpuscular Volume 98 fL (79-100) Mean Corpuscular Hemoglobin 33 pg (25-35) Mean Corpuscular Hemoglobin Concent 34 g/dL (31-37) Red Cell Distribution Width 19.3 % (11.5-14.5) Platelet Count 209 x10^3/uL (140-400) Neutrophils (%) (Auto) 72 % (31-73) Lymphocytes (%) (Auto) 20 % (24-48) Monocytes (%) (Auto) 8 % (0-9) Eosinophils (%) (Auto) 0 % (0-3) Basophils (%) (Auto) 0 % (0-3) Neutrophils # (Auto) 9.6 x10^3/uL (1.8-7.7) Lymphocytes # (Auto) 2.7 x10^3/uL (1.0-4.8) Monocytes # (Auto) 1.0 x10^3/uL (0.0-1.1) Eosinophils # (Auto) 0.0 x10^3/uL (0.0-0.7) Basophils # (Auto) 0.0 x10^3/uL (0.0-0.2) Sodium Level 143 mmol/L (136-145) Potassium Level 3.3 mmol/L (3.5-5.1) Chloride Level 108 mmol/L (98-107) Carbon Dioxide Level 26 mmol/L (21-32) Anion Gap 9 (6-14) Blood Urea Nitrogen 6 mg/dL (7-20) Creatinine 0.9 mg/dL (0.6-1.0) Estimated GFR (Cockcroft-Gault) 70.8 BUN/Creatinine Ratio 7 (6-20) Glucose Level 120 mg/dL (70-99) Calcium Level 8.2 mg/dL (8.5-10.1) Phosphorus Level 3.6 mg/dL (2.6-4.7) Magnesium Level 2.0 mg/dL (1.8-2.4) Total Bilirubin 0.5 mg/dL (0.2-1.0) Aspartate Amino Transf (AST/SGOT) 38 U/L (15-37) Alanine Aminotransferase (ALT/SGPT) 25 U/L (14-59) Alkaline Phosphatase 65 U/L (46-116) Total Protein 5.8 g/dL (6.4-8.2) Albumin 2.3 g/dL (3.4-5.0) Albumin/Globulin Ratio 0.7 (1.0-1.7) Microbiology 12/08/20 Blood Culture - Preliminary, Resulted NO GROWTH AFTER 2 DAYS 12/07/20 Urine Culture - Final, Complete Medications Current Medications Ringer's Solution 500 ml @ 500 mls/hr 1X ONCE IV ; Start 12/07/20 at 05:00; Stop 12/07/20 at 05:59; Status DC Ringer's Solution 500 ml @ 500 mls/hr 1X ONCE IV ; Start 12/07/20 at 05:00; Stop 12/07/20 at 05:59; Status DC Metoclopramide HCl (Reglan Vial) 10 mg 1X ONCE IVP ; Start 12/07/20 at 05:30; Stop 12/07/20 at 05:05; Status DC Ringer's Solution 500 ml @ 500 mls/hr 1X ONCE IV ; Start 12/07/20 at 05:30; Stop 12/07/20 at 06:29; Status DC Haloperidol Lactate (Haldol Inj) 5 mg STK-MED ONCE .ROUTE ; Start 12/07/20 at 05:05; Stop 12/07/20 at 05:05; Status DC Haloperidol Lactate (Haldol Inj) 5 mg 1X ONCE IVP Last administered on 12/07/20at 05:14; Start 12/07/20 at 05:30; Stop 12/07/20 at 05:31; Status DC Diphenhydramine HCl (Benadryl) 50 mg 1X ONCE IVP Last administered on 12/07/20at 05:14; Start 12/07/20 at 05:30; Stop 12/07/20 at 05:31; Status DC Ringer's Solution 500 ml @ 1,000 mls/hr 1X ONCE IV Last administered on 12/07/20at 05:13; Start 12/07/20 at 05:30; Stop 12/07/20 at 05:59; Status DC Propofol 100 ml @ As Directed STK-MED ONCE IV ; Start 12/07/20 at 05:56; Stop 12/07/20 at 05:56; Status DC Potassium Chloride/Sodium Chloride 1,000 ml @ 125 mls/hr Q8H IV Last administered on 12/07/20at 06:30; Start 12/07/20 at 06:30; Stop 12/07/20 at 14:29; Status DC Midazolam HCl (Versed) 5 mg STK-MED ONCE .ROUTE ; Start 12/07/20 at 06:29; Stop 12/07/20 at 06:30; Status DC Fentanyl Citrate 30 ml @ 0 mls/hr CONT PRN IV SEE PROTOCOL; Start 12/07/20 at 07:00; Status Cancel Chlorhexidine Gluconate (Peridex) 15 ml BID MM Last administered on 12/07/20at 09:00; Start 12/07/20 at 09:00; Stop 12/07/20 at 18:44; Status DC Midazolam HCl 100 ml @ 0 mls/hr CONT PRN IV SEE PROTOCOL Last administered on 12/07/20at 20:29; Start 12/07/20 at 07:00; Stop 12/09/20 at 15:37; Status DC Magnesium Sulfate 100 ml @ 25 mls/hr 1X ONCE IV Last administered on 12/07/20at 08:47; Start 12/07/20 at 07:30; Stop 12/07/20 at 11:29; Status DC Famotidine (Pepcid Vial) 20 mg BID IVP ; Start 12/07/20 at 09:00; Stop 12/07/20 at 10:56; Status DC Buspirone HCl (Buspar) 30 mg Q8H NG Last administered on 12/08/20at 16:18; Start 12/07/20 at 08:00; Stop 12/08/20 at 21:06; Status DC Acetaminophen (Tylenol) 650 mg Q4H NG Last administered on 12/08/20at 16:22; Start 12/07/20 at 08:00; Stop 12/08/20 at 22:07; Status DC Glycerin/ Hypromellose/ Polyethylene (Artificial Tears) 1 drop Q6HRS OU Last administered on 12/07/20at 17:25; Start 12/07/20 at 12:00; Stop 12/07/20 at 18:44; Status DC Glycerin/ Hypromellose/ Polyethylene (Artificial Tears) 1 drop PRN Q15MIN PRN OU DRY EYE; Start 12/07/20 at 08:00; Stop 12/10/20 at 21:08; Status DC Heparin Sodium (Porcine) (Heparin Sodium) 5,000 unit BID SQ Last administered on 12/10/20at 20:45; Start 12/07/20 at 09:00; Stop 12/10/20 at 21:08; Status DC Pantoprazole Sodium (PROTONIX VIAL for IV PUSH) 40 mg DAILY IVP Last administered on 12/10/20at 09:27; Start 12/07/20 at 09:00; Stop 12/10/20 at 21:08; Status DC Fentanyl Citrate 30 ml @ 0 mls/hr CONT PRN IV PER PROTOCOL. Last administered on 12/09/20at 04:17; Start 12/07/20 at 08:00; Stop 12/10/20 at 21:08; Status DC Propofol 100 ml @ 0 mls/hr CONT PRN IV PER PROTOCOL. Last administered on 12/09/20at 04:08; Start 12/07/20 at 08:00; Stop 12/10/20 at 21:08; Status DC Midazolam HCl 100 ml @ 0 mls/hr CONT PRN IV PER PROTOCOL; Start 12/07/20 at 08:00; Status UNV Vecuronium [place] (Norcuron Bolus) 6 mg PRN Q1HR PRN IV SHIVERING Last administered on 12/07/20at 08:47; Start 12/07/20 at 08:00; Stop 12/10/20 at 21:08; Status DC Potassium Chloride/Water 100 ml @ 100 mls/hr Q1H IV Last administered on 12/07/20at 10:49; Start 12/07/20 at 09:00; Stop 12/07/20 at 12:59; Status DC Potassium Chloride/Water 100 ml @ 100 mls/hr Q1H IV ; Start 12/07/20 at 12:00; Stop 12/07/20 at 14:59; Status DC Potassium Phosphate 10 mmol/ Sodium Chloride 103.3333 ml @ 51.667 m... Q2H IV Last administered on 12/07/20at 12:00; Start 12/07/20 at 10:00; Stop 12/07/20 at 13:59; Status DC Potassium Phosphate 10 mmol/ Sodium Chloride 103.3333 ml @ 51.667 m... Q2H IV Last administered on 12/07/20at 13:43; Start 12/07/20 at 12:00; Stop 12/07/20 at 15:59; Status DC Sodium Bicarbonate (Sodium Bicarb Adult 8.4% Syr) 50 meq STK-MED ONCE .ROUTE ; Start 12/07/20 at 12:00; Stop 12/07/20 at 15:47; Status DC Amiodarone HCl (Cordarone) 300 mg STK-MED ONCE .ROUTE ; Start 12/07/20 at 12:00; Stop 12/07/20 at 15:47; Status DC Epinephrine HCl (EPINEPHrine SYRINGE) 3 mg STK-MED ONCE .ROUTE ; Start 12/07/20 at 12:00; Stop 12/07/20 at 15:47; Status DC Midazolam HCl (Versed) 5 mg STK-MED ONCE .ROUTE ; Start 12/07/20 at 12:00; Stop 12/07/20 at 15:47; Status DC Magnesium Sulfate/ Dextrose (Magnesium Sulfate PREMIX 1GM) 1 gm STK-MED ONCE IV ; Start 12/07/20 at 12:00; Stop 12/07/20 at 15:47; Status DC Sodium Chloride 1,000 ml @ 50 mls/hr Q20H IV Last administered on 12/08/20at 13:13; Start 12/07/20 at 17:30; Stop 12/08/20 at 13:53; Status DC Potassium Chloride/Water 100 ml @ 100 mls/hr 1X ONCE IV Last administered on 12/07/20at 23:35; Start 12/07/20 at 23:30; Stop 12/08/20 at 00:29; Status DC Dopamine HCl/ Dextrose 250 ml @ 13.481 mls/ hr CONT PRN IV SEE I/O RECORD; Start 12/08/20 at 06:45 Dextrose (Dextrose 50%-Water Syringe) 12.5 gm PRN Q15MIN PRN IV SEE COMMENTS Last administered on 12/08/20at 10:04; Start 12/08/20 at 10:00 Potassium Chloride/Water 100 ml @ 100 mls/hr 1X ONCE IV Last administered on 12/08/20at 14:27; Start 12/08/20 at 13:45; Stop 12/08/20 at 14:44; Status DC Dextrose/Sodium Chloride 1,000 ml @ 75 mls/hr [id number] IV Last administered on 12/08/20at 14:16; Start 12/08/20 at 13:45; Stop 12/08/20 at 18:42; Status DC Norepinephrine Bitartrate 8 mg/ Dextrose 258 ml @ 13.913 mls/ hr CONT PRN IV PER PROTOCOL Last administered on 12/08/20at 15:11; Start 12/08/20 at 15:00 Hydrocortisone Sodium Succinate (Solu-CORTEF) 100 mg Q12HR IVP Last a dministered on 12/11/20at 08:54; Start 12/08/20 at 15:30 Potassium Chloride/Dextrose/ Sod Cl 1,000 ml @ 125 mls/hr Q8H IV Last administered on 12/09/20at 04:09; Start 12/08/20 at 19:00; Stop 12/09/20 at 11:13; Status DC Potassium Chloride/Water 100 ml @ 100 mls/hr Q1H IV Last administered on 12/08/20at 20:03; Start 12/08/20 at 19:00; Stop 12/08/20 at 20:59; Status DC Magnesium Sulfate/ Dextrose 100 ml @ 100 mls/hr 1X ONCE IV Last administered on 12/08/20at 18:51; Start 12/08/20 at 19:00; Stop 12/08/20 at 19:59; Status DC Cefepime HCl (Maxipime) 2 gm Q12HR IVP Last administered on 12/11/20at 08:54; Start 12/08/20 at 21:30; Stop 12/11/20 at 10:31; Status DC Calcium Gluconate 1000 mg/Sodium Chloride 110 ml @ 220 mls/hr 1X ONCE IV Last administered on 12/08/20at 23:40; Start 12/08/20 at 22:30; Stop 12/08/20 at 22:59; Status DC Dexmedetomidine HCl 400 mcg/ Sodium Chloride 100 ml @ 0 mls/hr CONT PRN IV PER PROTOCOL; Start 12/09/20 at 08:45 Sodium Chloride 500 ml @ 500 mls/hr 1X PRN PRN IV SEE COMMENTS; Start 12/09/20 at 08:45 Atropine Sulfate (ATROPINE 0.5mg SYRINGE) 0.5 mg PRN Q5MIN PRN IV SEE COMMENTS; Start 12/09/20 at 08:45 Potassium Chloride/Dextrose/ Sod Cl 1,000 ml @ 75 mls/hr [id number] IV ; Start 12/09/20 at 11:15; Stop 12/09/20 at 11:35; Status DC Potassium Chloride/Dextrose/ Sod Cl 1,000 ml @ 75 mls/hr [id number] IV Last administered on 12/11/20at 05:12; Start 12/09/20 at 11:45; Stop 12/11/20 at 08:23; Status DC Calcium Gluconate 1000 mg/Sodium Chloride 110 ml @ 220 mls/hr 1X ONCE IV Last administered on 12/09/20at 14:03; Start 12/09/20 at 14:00; Stop 12/09/20 at 14:29; Status DC Ondansetron HCl (Zofran) 4 mg PRN Q8HRS PRN IVP NAUSEA/VOMITING Last administered on 12/09/20at 13:52; Start 12/09/20 at 13:45; Stop 12/09/20 at 15:37; Status DC Promethazine HCl (Phenergan) 12.5 mg PRN Q6HRS PRN PO NAUSEA/VOMITING; Start 12/09/20 at 15:30; Stop 12/09/20 at 15:37; Status DC Promethazine HCl (Phenergan) 12.5 mg PRN Q6HRS PRN PO NAUSEA/VOMITING; Start 12/09/20 at 16:45; Stop 12/09/20 at 17:07; Status DC Prochlorperazine Edisylate (Compazine) 10 mg PRN Q6HRS PRN IV NAUSEA/VOMITING Last administered on 12/10/20at 18:46; Start 12/09/20 at 17:15; Stop 12/10/20 at 21:08; Status DC Lorazepam (Ativan Inj) 2 mg PRN Q6HRS PRN IVP ANXIETY / AGITATION Last a dministered on 12/10/20at 20:46; Start 12/09/20 at 19:00 Calcium/Vitamin D (Oscal D 500mg/ 200uts) 1 tab BIDWMEALS PO ; Start 12/10/20 at 17:00 Magnesium Sulfate 50 ml @ 25 mls/hr PRN DAILY PRN IV for Mag < 1.7 on am labs; Start 12/10/20 at 13:15 Fentanyl Citrate (Fentanyl 2ml Vial) 50 mcg PRN Q3HRS PRN IVP PAIN Last administered on 12/11/20at 07:32; Start 12/10/20 at 21:00 Prochlorperazine Edisylate (Compazine) 10 mg PRN Q4HRS PRN IV NAUSEA/VOMITING Last administered on 12/11/20at 09:06; Start 12/10/20 at 21:00 Heparin Sodium (Porcine) (Heparin Sodium) 5,000 unit BID SQ Last administered on 12/11/20at 09:04; Start 12/11/20 at 09:00 Pantoprazole Sodium (Protonix) 40 mg DAILYAC PO ; Start 12/12/20 at 07:30; Status Cancel Pantoprazole Sodium (Protonix) 40 mg 1X ONCE PO ; Start 12/11/20 at 07:45; Stop 12/11/20 at 07:46; Status Cancel Info (Icu Electrolyte Protocol) 1 ea CONT PRN PRN MC PER PROTOCOL; Start 12/11/20 at 08:30 Info (Tpn Per Pharmacy) 1 each PRN DAILY PRN MC SEE COMMENTS; Start 12/11/20 at 08:30 Pantoprazole Sodium (PROTONIX VIAL for IV PUSH) 40 mg DAILYAC IVP Last administered on 12/11/20at 08:53; Start 12/11/20 at 09:00 Potassium Chloride/Water 100 ml @ 100 mls/hr Q1H IV Last administered on 12/11/20at 10:00; Start 12/11/20 at 09:00; Stop 12/11/20 at 10:59 Active Scripts Active Vancomycin Hcl 125 Mg Capsule 1 Cap PO QID 10 Days Potassium Chloride (Potassium Chloride) 20 Meq Tablet.er 20 Meq PO BIDAC 30 Days Reglan (Metoclopramide Hcl) 10 Mg Tablet 10 Mg PO TID PRN Compazine (Prochlorperazine Maleate) 10 Mg Tablet 1 Tab PO Q6HRS Ondansetron Odt (Ondansetron) 4 Mg Tab.rapdis 1 Tab PO PRN Q6-8HRS Amitriptyline Hcl 10 Mg Tablet 1 Tab PO QHS 90 Days Celexa (Citalopram Hydrobromide) 20 Mg Tablet 1 Tab PO QHS Reported Fenofibrate (Fenofibrate,Micronized) 134 Mg Capsule 134 Mg PO DAILY Nexium Capsule (Esomeprazole Magnesium) 40 Mg Capsule.dr 1 Cap PO DAILY Vitals/I & O Vital Sign - Last 24 Hours 12/10/20 12/10/20 12/10/20 12/10/20 11:00 12:30 15:10 19:00 Temp 98.9 98.2 98.6 98.9 98.2 98.6 Pulse 67 50 78 74 B/P (MAP) 168/101 (123) 154/93 (113) 169/104 (125) 143/90 (107) Pulse Ox 97 99 96 94 O2 Delivery Room Air Room Air Room Air Room Air 12/10/20 12/10/20 12/10/20 12/10/20 20:00 21:45 22:15 23:00 Temp 98.8 98.8 Pulse 46 Resp 14 20 B/P (MAP) 155/86 (109) Pulse Ox 96 99 99 O2 Delivery Room Air Room Air Room Air Room Air O2 Flow Rate 35.0 35.0 12/11/20 12/11/20 12/11/20 12/11/20 03:00 07:00 07:32 08:30 Temp 98.3 98.6 98.3 98.6 Pulse 46 58 B/P (MAP) 135/88 (104) 133/87 (102) Pulse Ox 97 100 O2 Delivery Room Air Room Air Room Air Room Air 12/11/20 08:48 Pulse Ox 100 O2 Delivery Room Air Intake and Output 4/17/21 4/17/21 4/18/21 15:00 23:00 07:00 Intake Total 1000 ml 0 ml Output Total 50 ml 300 ml Balance -50 ml 700 ml 0 ml Nutrition Consultation Dietary Evaluation: Recommendations by RD: Dietary education by RD, Increase Calorie Intake, PPN/TPN Comments: REC advance diet as able pending FOOD SANITARIAN eval and GI tolerance, goal diet cardiac w/supplements prn If unable to advance diet per FOOD SANITARIAN within 24-48 hrs, recommend dobhoff for TFs per following: Osmolite 1.5@20 ml/hr, increase 10 ml q8 hrs as tolerated to goal rate 40 ml/hr w/150 ml water flushes q4 hrs REC TPN (pt has central line) if unable to advance diet within 24- 48 hrs per GI, recommend TPN per following dextrose, 70g AA, 20g lipids Expected Outcomes/Goals: Initiate nutrition support when pt is stable - not met, new goal established New goal 12/09: initiation of nutrition within next 24 - 48 hrs s/p extubation Interpretation of weight loss: >10% in 6 months Malnutrition Findings: Food and Nutrition Intake (Sev: <50% est energy req 5days Weight Status: Appropriate Justicifation of Admission Dx: Justifications for Admission: Justification of Admission Dx: Yes CHF: Sev. Electrolyte Abnormal MYA CASTELLON MD Dec 11, 2020 10:47
[2020-12-11] MEDS: hydrALAZINE 20 MG/ML VIAL. IVP PRN ×3 (11:29→19:57)
--- NOTE | 2020-12-11 12:02 | NUR ---
Pharmacy TPN Dosing Note S: GENEVIEVE ALANIZ is a 35 year old F Currently receiving Central Continuous TPN started 12/11/20 B:Pertinent PMH: prolonged NPO Height: 5 feet, 3 inches Weight: 73.5 kg Current diet: NPO LABS: Sodium: 143 Potassium: 3.3 Chloride: 108 Calcium: 8.2 Corrected Calcium: 9.56 Magnesium: 2 CO2: 26 SCr: 0.9 Glucose: 120 Albumin: 2.3 AST: 38 ALT: 25 TPN FORMULA: TPN TYPE: Central Continuous AMINO ACIDS: 60 gm DEXTROSE: 195 gm LIPIDS: 20 gm SODIUM ACETATE: 50 mEq POTASSIUM CHLORIDE: 50 mEq POTASSIUM PHOSPHATE: 13.6 mmol MAGNESIUM: 10 mEq CALCIUM: 10 mEq MULTIPLE VITAMIN: 5 ml TRACE ELEMENTS: 1 ml TPN PLAN: -Begin TPN per nephrology and primary - initiate with standard macros. -Start standard electrolytes with change in NaCl to NaAC 50 mEq/day. -BMP, mag, phos tomorrow. R: Begin TPN @ 63 ml/hr and above formula. Will monitor electrolytes, glucose, and tolerance to TPN. CHEYENNE DELGADILLO [facility], 12/11/20 [id number]
[2020-12-11 14:49] LABS: BILIRUBIN,URINE NEGATIVE (NEG); CLARITY,URINE CLEAR; COLOR,URINE YELLOW; NITRITE,URINE NEGATIVE (NEG); PROTEIN,URINE NEGATIVE (NEG-TRACE); UROBILINOGEN,URINE 0.2 mg/dL (0.2 mg/dL)
[2020-12-11 15:03] LABS: BACTERIA,URINE FEW /HPF (0-FEW); WBC,URINE OCC /HPF (0-4)
[2020-12-11 15:04] LABS: HYALINE CASTS, URINE OCCASIONAL /HPF; YEAST,URINE PRESENT /HPF
--- NOTE | 2020-12-11 18:10 | NUR ---
Patient more alert and coherent today, and understanding of what had happened to her up to this point. Patient is considering heart cath now, just wants a doctor to explain everything to her. Will pass this information off in report.
--- NOTE | 2020-12-11 18:31 | NUR ---
Patient's blood pressure has been high all day- systolic bp 170's and diastolic bp 100's. Reported to Dr. Lopez this morning and hydralazine ordered prn and given twice today. This has helped some, however patient's blood pressure spikes back up and has not rebounded back into moderate ranges. Dr. Garcia (cardiolog) has been paged. Will continue to monitor.
--- NOTE | 2020-12-11 20:15 | PDOC ---
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 She is able to answer simple questions. Patient denied any complaint of chest pain headache dizziness. Objective Vital Signs Date Time Temp Pulse Resp B/P (MAP) Pulse Ox O2 Delivery O2 Flow Rate FiO2 12/11/20 19:58 14 100 Room Air 35.0 12/11/20 19:57 82 199/110 12/11/20 15:02 99.8 99.8 Intake and Output 12/11/20 07:00 Intake Total 1000 ml Output Total 350 ml Balance 650 ml Intake Oral 50 ml IV Total 950 ml Emesis 100 ml Oral Regurgitation 250 ml # Voids 5 PHYSICAL EXAM General no acute distress. HEENT: Normocephalic and atraumatic. NECK: Supple without bruit Respiratory: Clear to auscultation bilaterally Heart: Regular rate and rhythm, S1S2 normal NEUROLOGIC: Mental status Alert able to tell her name Cranial nerve equally reactive pupils, and intact extraocular movements. No facial asymmetry. Palate elevates and tongue protrudes in midline. Reflexes are 1 + with flexor plantar responses. Strength able to move all exts effort dependent Sensory exam is intact for light touch and pinprick. Gait in bed. Review of Relevant I have reviewed the following items josué (where applicable) has been applied. Labs Laboratory Tests Test 12/10/20 00:35 12/10/20 07:55 12/11/20 05:55 12/11/20 14:00 Urine Random Creatinine 28.8 mg/dL (Not Establ.) Urine Sodium 111 mmol/L (Not Estab.) Urine Potassium 16.3 mmol/L (Not Estab.) Urine Chloride 124 mmol/L (Not Estab.) White Blood Count 13.7 x10^3/uL (4.0-11.0) 13.3 x10^3/uL (4.0-11.0) Red Blood Count 3.10 x10^6/uL (3.50-5.40) 3.09 x10^6/uL (3.50-5.40) Hemoglobin 10.3 g/dL (12.0-15.5) 10.1 g/dL (12.0-15.5) Hematocrit 30.6 % (36.0-47.0) 30.2 % (36.0-47.0) Mean Corpuscular Volume 99 fL (79-100) 98 fL (79-100) Mean Corpuscular Hemoglobin 33 pg (25-35) 33 pg (25-35) Mean Corpuscular Hemoglobin Concent 34 g/dL (31-37) 34 g/dL (31-37) Red Cell Distribution Width 19.6 % (11.5-14.5) 19.3 % (11.5-14.5) Platelet Count 212 x10^3/uL (140-400) 209 x10^3/uL (140-400) Neutrophils (%) (Auto) 76 % (31-73) 72 % (31-73) Lymphocytes (%) (Auto) 18 % (24-48) 20 % (24-48) Monocytes (%) (Auto) 6 % (0-9) 8 % (0-9) Eosinophils (%) (Auto) 0 % (0-3) 0 % (0-3) Basophils (%) (Auto) 0 % (0-3) 0 % (0-3) Neutrophils # (Auto) 10.3 x10^3/uL (1.8-7.7) 9.6 x10^3/uL (1.8-7.7) Lymphocytes # (Auto) 2.4 x10^3/uL (1.0-4.8) 2.7 x10^3/uL (1.0-4.8) Monocytes # (Auto) 0.9 x10^3/uL (0.0-1.1) 1.0 x10^3/uL (0.0-1.1) Eosinophils # (Auto) 0.0 x10^3/uL (0.0-0.7) 0.0 x10^3/uL (0.0-0.7) Basophils # (Auto) 0.1 x10^3/uL (0.0-0.2) 0.0 x10^3/uL (0.0-0.2) Sodium Level 148 mmol/L (136-145) 143 mmol/L (136-145) Potassium Level 3.9 mmol/L (3.5-5.1) 3.3 mmol/L (3.5-5.1) Chloride Level 110 mmol/L (98-107) 108 mmol/L (98-107) Carbon Dioxide Level 24 mmol/L (21-32) 26 mmol/L (21-32) Anion Gap 14 (6-14) 9 (6-14) Blood Urea Nitrogen 6 mg/dL (7-20) 6 mg/dL (7-20) Creatinine 1.2 mg/dL (0.6-1.0) 0.9 mg/dL (0.6-1.0) Estimated GFR (Cockcroft-Gault) 50.8 70.8 BUN/Creatinine Ratio 5 (6-20) 7 (6-20) Glucose Level 113 mg/dL (70-99) 120 mg/dL (70-99) Calcium Level 8.1 mg/dL (8.5-10.1) 8.2 mg/dL (8.5-10.1) Total Bilirubin 0.4 mg/dL (0.2-1.0) 0.5 mg/dL (0.2-1.0) Aspartate Amino Transf (AST/SGOT) 36 U/L (15-37) 38 U/L (15-37) Alanine Aminotransferase (ALT/SGPT) 27 U/L (14-59) 25 U/L (14-59) Alkaline Phosphatase 65 U/L (46-116) 65 U/L (46-116) Total Protein 5.5 g/dL (6.4-8.2) 5.8 g/dL (6.4-8.2) Albumin 2.5 g/dL (3.4-5.0) 2.3 g/dL (3.4-5.0) Albumin/Globulin Ratio 0.8 (1.0-1.7) 0.7 (1.0-1.7) Phosphorus Level 3.6 mg/dL (2.6-4.7) Magnesium Level 2.0 mg/dL (1.8-2.4) Urine Collection Type Unknown Urine Color Yellow Urine Clarity Clear Urine pH 6.0 (<5.0-8.0) Urine Specific [place] 1.015 (1.000-1.030) Urine Protein Negative mg/dL (NEG-TRACE) Urine Glucose (UA) Negative mg/dL (NEG) Urine Ketones (Stick) Negative mg/dL (NEG) Urine Blood Moderate (NEG) Urine Nitrite Negative (NEG) Urine Bilirubin Negative (NEG) Urine Urobilinogen Dipstick 0.2 mg/dL (0.2 mg/dL) Urine Leukocyte Esterase Negative (NEG) Urine RBC 3-5 /HPF (0-2) Urine WBC Occ /HPF (0-4) Urine Squamous Epithelial Cells Many /LPF Urine Bacteria Few /HPF (0-FEW) Urine Hyaline Casts Occasional /HPF Urine Mucus Mod /LPF Urine Yeast Present /HPF Laboratory Tests Test 12/11/20 05:55 12/11/20 14:00 White Blood Count 13.3 x10^3/uL (4.0-11.0) Red Blood Count 3.09 x10^6/uL (3.50-5.40) Hemoglobin 10.1 g/dL (12.0-15.5) Hematocrit 30.2 % (36.0-47.0) Mean Corpuscular Volume 98 fL (79-100) Mean Corpuscular Hemoglobin 33 pg (25-35) Mean Corpuscular Hemoglobin Concent 34 g/dL (31-37) Red Cell Distribution Width 19.3 % (11.5-14.5) Platelet Count 209 x10^3/uL (140-400) Neutrophils (%) (Auto) 72 % (31-73) Lymphocytes (%) (Auto) 20 % (24-48) Monocytes (%) (Auto) 8 % (0-9) Eosinophils (%) (Auto) 0 % (0-3) Basophils (%) (Auto) 0 % (0-3) Neutrophils # (Auto) 9.6 x10^3/uL (1.8-7.7) Lymphocytes # (Auto) 2.7 x10^3/uL (1.0-4.8) Monocytes # (Auto) 1.0 x10^3/uL (0.0-1.1) Eosinophils # (Auto) 0.0 x10^3/uL (0.0-0.7) Basophils # (Auto) 0.0 x10^3/uL (0.0-0.2) Sodium Level 143 mmol/L (136-145) Potassium Level 3.3 mmol/L (3.5-5.1) Chloride Level 108 mmol/L (98-107) Carbon Dioxide Level 26 mmol/L (21-32) Anion Gap 9 (6-14) Blood Urea Nitrogen 6 mg/dL (7-20) Creatinine 0.9 mg/dL (0.6-1.0) Estimated GFR (Cockcroft-Gault) 70.8 BUN/Creatinine Ratio 7 (6-20) Glucose Level 120 mg/dL (70-99) Calcium Level 8.2 mg/dL (8.5-10.1) Phosphorus Level 3.6 mg/dL (2.6-4.7) Magnesium Level 2.0 mg/dL (1.8-2.4) Total Bilirubin 0.5 mg/dL (0.2-1.0) Aspartate Amino Transf (AST/SGOT) 38 U/L (15-37) Alanine Aminotransferase (ALT/SGPT) 25 U/L (14-59) Alkaline Phosphatase 65 U/L (46-116) Total Protein 5.8 g/dL (6.4-8.2) Albumin 2.3 g/dL (3.4-5.0) Albumin/Globulin Ratio 0.7 (1.0-1.7) Urine Collection Type Unknown Urine Color Yellow Urine Clarity Clear Urine pH 6.0 (<5.0-8.0) Urine Specific [place] 1.015 (1.000-1.030) Urine Protein Negative mg/dL (NEG-TRACE) Urine Glucose (UA) Negative mg/dL (NEG) Urine Ketones (Stick) Negative mg/dL (NEG) Urine Blood Moderate (NEG) Urine Nitrite Negative (NEG) Urine Bilirubin Negative (NEG) Urine Urobilinogen Dipstick 0.2 mg/dL (0.2 mg/dL) Urine Leukocyte Esterase Negative (NEG) Urine RBC 3-5 /HPF (0-2) Urine WBC Occ /HPF (0-4) Urine Squamous Epithelial Cells Many /LPF Urine Bacteria Few /HPF (0-FEW) Urine Hyaline Casts Occasional /HPF Urine Mucus Mod /LPF Urine Yeast Present /HPF Microbiology 12/08/20 Blood Culture - Preliminary, Resulted NO GROWTH AFTER 3 DAYS 12/07/20 Urine Culture - Final, Complete Medications Current Medications Ringer's Solution 500 ml @ 500 mls/hr 1X ONCE IV ; Start 12/07/20 at 05:00; Stop 12/07/20 at 05:59; Status DC Ringer's Solution 500 ml @ 500 mls/hr 1X ONCE IV ; Start 12/07/20 at 05:00; Stop 12/07/20 at 05:59; Status DC Metoclopramide HCl (Reglan Vial) 10 mg 1X ONCE IVP ; Start 12/07/20 at 05:30; Stop 12/07/20 at 05:05; Status DC Ringer's Solution 500 ml @ 500 mls/hr 1X ONCE IV ; Start 12/07/20 at 05:30; Stop 12/07/20 at 06:29; Status DC Haloperidol Lactate (Haldol Inj) 5 mg STK-MED ONCE .ROUTE ; Start 12/07/20 at 05:05; Stop 12/07/20 at 05:05; Status DC Haloperidol Lactate (Haldol Inj) 5 mg 1X ONCE IVP Last administered on 12/07/20at 05:14; Start 12/07/20 at 05:30; Stop 12/07/20 at 05:31; Status DC Diphenhydramine HCl (Benadryl) 50 mg 1X ONCE IVP Last administered on 12/07/20at 05:14; Start 12/07/20 at 05:30; Stop 12/07/20 at 05:31; Status DC Ringer's Solution 500 ml @ 1,000 mls/hr 1X ONCE IV Last administered on 12/07/20at 05:13; Start 12/07/20 at 05:30; Stop 12/07/20 at 05:59; Status DC Propofol 100 ml @ As Directed STK-MED ONCE IV ; Start 12/07/20 at 05:56; Stop 12/07/20 at 05:56; Status DC Potassium Chloride/Sodium Chloride 1,000 ml @ 125 mls/hr Q8H IV Last administered on 12/07/20at 06:30; Start 12/07/20 at 06:30; Stop 12/07/20 at 14 :29; Status DC Midazolam HCl (Versed) 5 mg STK-MED ONCE .ROUTE ; Start 12/07/20 at 06:29; Stop 12/07/20 at 06:30; Status DC Fentanyl Citrate 30 ml @ 0 mls/hr CONT PRN IV SEE PROTOCOL; Start 12/07/20 at 07:00; Status Cancel Chlorhexidine Gluconate (Peridex) 15 ml BID MM Last administered on 12/07/20at 09:00; Start 12/07/20 at 09:00; Stop 12/07/20 at 18:44; Status DC Midazolam HCl 100 ml @ 0 mls/hr CONT PRN IV SEE PROTOCOL Last administered on 12/07/20at 20:29; Start 12/07/20 at 07:00; Stop 12/09/20 at 15:37; Status DC Magnesium Sulfate 100 ml @ 25 mls/hr 1X ONCE IV Last administered on 12/07/20at 08:47; Start 12/07/20 at 07:30; Stop 12/07/20 at 11:29; Status DC Famotidine (Pepcid Vial) 20 mg BID IVP ; Start 12/07/20 at 09:00; Stop 12/07/20 at 10:56; Status DC Buspirone HCl (Buspar) 30 mg Q8H NG Last administered on 12/08/20at 16:18; Start 12/07/20 at 08:00; Stop 12/08/20 at 21:06; Status DC Acetaminophen (Tylenol) 650 mg Q4H NG Last administered on 12/08/20at 16:22; Start 12/07/20 at 08:00; Stop 12/08/20 at 22:07; Status DC Glycerin/ Hypromellose/ Polyethylene (Artificial Tears) 1 drop Q6HRS OU Last administered on 12/07/20at 17:25; Start 12/07/20 at 12:00; Stop 12/07/20 at 18:44; Status DC Glycerin/ Hypromellose/ Polyethylene (Artificial Tears) 1 drop PRN Q15MIN PRN OU DRY EYE; Start 12/07/20 at 08:00; Stop 12/10/20 at 21:08; Status DC Heparin Sodium (Porcine) (Heparin Sodium) 5,000 unit BID SQ Last administered on 12/10/20at 20:45; Start 12/07/20 at 09:00; Stop 12/10/20 at 21:08; Status DC Pantoprazole Sodium (PROTONIX VIAL for IV PUSH) 40 mg DAILY IVP Last administered on 12/10/20at 09:27; Start 12/07/20 at 09:00; Stop 12/10/20 at 21:08; Status DC Fentanyl Citrate 30 ml @ 0 mls/hr CONT PRN IV PER PROTOCOL. Last administered on 12/09/20at 04:17; Start 12/07/20 at 08:00; Stop 12/10/20 at 21:08; Status DC Propofol 100 ml @ 0 mls/hr CONT PRN IV PER PROTOCOL. Last administered on 12/09/20at 04:08; Start 12/07/20 at 08:00; Stop 12/10/20 at 21:08; Status DC Midazolam HCl 100 ml @ 0 mls/hr CONT PRN IV PER PROTOCOL; Start 12/07/20 at 08:00; Status UNV Vecuronium [place] (Norcuron Bolus) 6 mg PRN Q1HR PRN IV SHIVERING Last a dministered on 12/07/20at 08:47; Start 12/07/20 at 08:00; Stop 12/10/20 at 21:08; Status DC Potassium Chloride/Water 100 ml @ 100 mls/hr Q1H IV Last administered on 12/07/20at 10:49; Start 12/07/20 at 09:00; Stop 12/07/20 at 12:59; Status DC Potassium Chloride/Water 100 ml @ 100 mls/hr Q1H IV ; Start 12/07/20 at 12:00; Stop 12/07/20 at 14:59; Status DC Potassium Phosphate 10 mmol/ Sodium Chloride 103.3333 ml @ 51.667 m... Q2H IV Last administered on 12/07/20at 12:00; Start 12/07/20 at 10:00; Stop 12/07/20 at 13:59; Status DC Potassium Phosphate 10 mmol/ Sodium Chloride 103.3333 ml @ 51.667 m... Q2H IV Last administered on 12/07/20at 13:43; Start 12/07/20 at 12:00; Stop 12/07/20 at 15:59; Status DC Sodium Bicarbonate (Sodium Bicarb Adult 8.4% Syr) 50 meq STK-MED ONCE .ROUTE ; Start 12/07/20 at 12:00; Stop 12/07/20 at 15:47; Status DC Amiodarone HCl (Cordarone) 300 mg STK-MED ONCE .ROUTE ; Start 12/07/20 at 12:00; Stop 12/07/20 at 15:47; Status DC Epinephrine HCl (EPINEPHrine SYRINGE) 3 mg STK-MED ONCE .ROUTE ; Start 12/07/20 at 12:00; Stop 12/07/20 at 15:47; Status DC Midazolam HCl (Versed) 5 mg STK-MED ONCE .ROUTE ; Start 12/07/20 at 12:00; Stop 12/07/20 at 15:47; Status DC Magnesium Sulfate/ Dextrose (Magnesium Sulfate PREMIX 1GM) 1 gm STK-MED ONCE IV ; Start 12/07/20 at 12:00; Stop 12/07/20 at 15:47; Status DC Sodium Chloride 1,000 ml @ 50 mls/hr Q20H IV Last administered on 12/08/20at 13:13; Start 12/07/20 at 17:30; Stop 12/08/20 at 13:53; Status DC Potassium Chloride/Water 100 ml @ 100 mls/hr 1X ONCE IV Last administered on 12/07/20at 23:35; Start 12/07/20 at 23:30; Stop 12/08/20 at 00:29; Status DC Dopamine HCl/ Dextrose 250 ml @ 13.481 mls/ hr CONT PRN IV SEE I/O RECORD; Start 12/08/20 at 06:45 Dextrose (Dextrose 50%-Water Syringe) 12.5 gm PRN Q15MIN PRN IV SEE COMMENTS Last administered on 12/08/20at 10:04; Start 12/08/20 at 10:00 Potassium Chloride/Water 100 ml @ 100 mls/hr 1X ONCE IV Last administered on 12/08/20at 14:27; Start 12/08/20 at 13:45; Stop 12/08/20 at 14:44; Status DC Dextrose/Sodium Chloride 1,000 ml @ 75 mls/hr [id number] IV Last administered on 12/08/20at 14:16; Start 12/08/20 at 13:45; Stop 12/08/20 at 18:42; Status DC Norepinephrine Bitartrate 8 mg/ Dextrose 258 ml @ 13.913 mls/ hr CONT PRN IV PER PROTOCOL Last administered on 12/08/20at 15:11; Start 12/08/20 at 15:00 Hydrocortisone Sodium Succinate (Solu-CORTEF) 100 mg Q12HR IVP Last admin istered on 12/11/20at 08:54; Start 12/08/20 at 15:30; Stop 12/11/20 at 13:13; Status DC Potassium Chloride/Dextrose/ Sod Cl 1,000 ml @ 125 mls/hr Q8H IV Last administered on 12/09/20at 04:09; Start 12/08/20 at 19:00; Stop 12/09/20 at 11:13; Status DC Potassium Chloride/Water 100 ml @ 100 mls/hr Q1H IV Last administered on 12/08/20at 20:03; Start 12/08/20 at 19:00; Stop 12/08/20 at 20:59; Status DC Magnesium Sulfate/ Dextrose 100 ml @ 100 mls/hr 1X ONCE IV Last administered on 12/08/20at 18:51; Start 12/08/20 at 19:00; Stop 12/08/20 at 19:59; Status DC Cefepime HCl (Maxipime) 2 gm Q12HR IVP Last administered on 12/11/20at 08:54; Start 12/08/20 at 21:30; Stop 12/11/20 at 10:31; Status DC Calcium Gluconate 1000 mg/Sodium Chloride 110 ml @ 220 mls/hr 1X ONCE IV Last administered on 12/08/20at 23:40; Start 12/08/20 at 22:30; Stop 12/08/20 at 22:59; Status DC Dexmedetomidine HCl 400 mcg/ Sodium Chloride 100 ml @ 0 mls/hr CONT PRN IV PER PROTOCOL; Start 12/09/20 at 08:45 Sodium Chloride 500 ml @ 500 mls/hr 1X PRN PRN IV SEE COMMENTS; Start 12/09/20 at 08:45 Atropine Sulfate (ATROPINE 0.5mg SYRINGE) 0.5 mg PRN Q5MIN PRN IV SEE COMMENTS; Start 12/09/20 at 08:45 Potassium Chloride/Dextrose/ Sod Cl 1,000 ml @ 75 mls/hr [id number] IV ; Start 12/09/20 at 11:15; Stop 12/09/20 at 11:35; Status DC Potassium Chloride/Dextrose/ Sod Cl 1,000 ml @ 75 mls/hr [id number] IV Last administered on 12/11/20at 05:12; Start 12/09/20 at 11:45; Stop 12/11/20 at 08:23; Status DC Calcium Gluconate 1000 mg/Sodium Chloride 110 ml @ 220 mls/hr 1X ONCE IV Last administered on 12/09/20at 14:03; Start 12/09/20 at 14:00; Stop 12/09/20 at 14:29; Status DC Ondansetron HCl (Zofran) 4 mg PRN Q8HRS PRN IVP NAUSEA/VOMITING Last administered on 12/09/20at 13:52; Start 12/09/20 at 13:45; Stop 12/09/20 at 15:37; Status DC Promethazine HCl (Phenergan) 12.5 mg PRN Q6HRS PRN PO NAUSEA/VOMITING; Start 12/09/20 at 15:30; Stop 12/09/20 at 15:37; Status DC Promethazine HCl (Phenergan) 12.5 mg PRN Q6HRS PRN PO NAUSEA/VOMITING; Start 12/09/20 at 16:45; Stop 12/09/20 at 17:07; Status DC Prochlorperazine Edisylate (Compazine) 10 mg PRN Q6HRS PRN IV NAUSEA/VOMITING Last administered on 12/10/20at 18:46; Start 12/09/20 at 17:15; Stop 12/10/20 at 21:08; Status DC Lorazepam (Ativan Inj) 2 mg PRN Q6HRS PRN IVP ANXIETY / AGITATION Last administered on 12/11/20at 18:02; Start 12/09/20 at 19:00; Stop 12/11/20 at 18:02; Status DC Calcium/Vitamin D (Oscal D 500mg/ 200uts) 1 tab BIDWMEALS PO ; Start 12/10/20 at 17:00 Magnesium Sulfate 50 ml @ 25 mls/hr PRN DAILY PRN IV for Mag < 1.7 on am labs; Start 12/10/20 at 13:15 Fentanyl Citrate (Fentanyl 2ml Vial) 50 mcg PRN Q3HRS PRN IVP PAIN Last administered on 12/11/20at 19:58; Start 12/10/20 at 21:00 Prochlorperazine Edisylate (Compazine) 10 mg PRN Q4HRS PRN IV NAUSEA/VOMITING Last administered on 12/11/20at 16:57; Start 12/10/20 at 21:00 Heparin Sodium (Porcine) (Heparin Sodium) 5,000 unit BID SQ Last administered on 12/11/20at 09:04; Start 12/11/20 at 09:00 Pantoprazole Sodium (Protonix) 40 mg DAILYAC PO ; Start 12/12/20 at 07:30; Status Cancel Pantoprazole Sodium (Protonix) 40 mg 1X ONCE PO ; Start 12/11/20 at 07:45; Stop 12/11/20 at 07:46; Status Cancel Info (Icu Electrolyte Protocol) 1 ea CONT PRN PRN MC PER PROTOCOL; Start 12/11/20 at 08:30 Info (Tpn Per Pharmacy) 1 each PRN DAILY PRN MC SEE COMMENTS Last administered on 12/11/20at 12:01; Start 12/11/20 at 08:30 Pantoprazole Sodium (PROTONIX VIAL for IV PUSH) 40 mg DAILYAC IVP Last administered on 12/11/20at 08:53; Start 12/11/20 at 09:00 Potassium Chloride/Water 100 ml @ 100 mls/hr Q1H IV Last administered on 12/11/20at 10:00; Start 12/11/20 at 09:00; Stop 12/11/20 at 10:59; Status DC Hydralazine HCl (Apresoline Inj) 10 mg PRN Q4HRS PRN IVP ELEVATED BP, SEE COMMENTS Last administered on 12/11/20at 19:57; Start 12/11/20 at 11:30 Sodium Acetate 50 meq/Potassium Chloride 50 meq/ Potassium Phosphate 13.6 mmol/Magnesium Sulfate 10 meq/ Calcium Gluconate 10 meq/ Multivitamins 5 ml/Zinc/Copper/ Manganese/ Selenium 1 ml/ Total Parenteral Nutrition/Amino Acids/Dextrose/ Fat Emulsion Intravenous 1,512 ml @ 63 mls/hr TPN CONT IV ; Start 12/11/20 at 22:00; Stop 12/12/20 at 21:59 Hydrocortisone Sodium Succinate (Solu-CORTEF) 80 mg DAILY08 IVP ; Start 12/12/20 at 08:00 Hydrocortisone Sodium Succinate (Solu-CORTEF) 40 mg DAILY16 IVP Last administered on 12/11/20at 16:12; Start 12/11/20 at 16:00 Nicardipine HCl 50 mg/Sodium Chloride 250 ml @ 25 mls/hr CONT PRN IV SEE I/O RECORD Last administered on 12/11/20at 19:44; Start 12/11/20 at 19:15 Active Scripts Active Vancomycin Hcl 125 Mg Capsule 1 Cap PO QID 10 Days Potassium Chloride (Potassium Chloride) 20 Meq Tablet.er 20 Meq PO BIDAC 30 Days Reglan (Metoclopramide Hcl) 10 Mg Tablet 10 Mg PO TID PRN Compazine (Prochlorperazine Maleate) 10 Mg Tablet 1 Tab PO Q6HRS Ondansetron Odt (Ondansetron) 4 Mg Tab.rapdis 1 Tab PO PRN Q6-8HRS Amitriptyline Hcl 10 Mg Tablet 1 Tab PO QHS 90 Days Celexa (Citalopram Hydrobromide) 20 Mg Tablet 1 Tab PO QHS Reported Fenofibrate (Fenofibrate,Micronized) 134 Mg Capsule 134 Mg PO DAILY Nexium Capsule (Esomeprazole Magnesium) 40 Mg Capsule.dr 1 Cap PO DAILY Vitals/I & O Vital Sign - Last 24 Hours 12/10/20 12/10/20 12/10/20 12/11/20 21:45 22:15 23:00 03:00 Temp 98.8 98.3 98.8 98.3 Pulse 46 46 Resp 14 20 B/P (MAP) 155/86 (109) 135/88 (104) Pulse Ox 96 99 99 97 O2 Delivery Room Air Room Air Room Air Room Air O2 Flow Rate 35.0 35.0 12/11/20 12/11/20 12/11/20 12/11/20 07:00 07:32 08:30 08:48 Temp 98.6 98.6 Pulse 58 B/P (MAP) 133/87 (102) Pulse Ox 100 100 O2 Delivery Room Air Room Air Room Air Room Air 12/11/20 12/11/20 12/11/20 12/11/20 11:09 11:29 12:03 12:18 Temp 99.1 99.1 Pulse 53 53 66 B/P (MAP) 184/107 (132) 184/107 154/93 (113) Pulse Ox 100 100 100 O2 Delivery Room Air Room Air Room Air 4/12/11/20 12/11/20 12/11/20 12:48 15:02 15:20 16:54 Temp 99.8 99.8 Pulse 65 65 B/P (MAP) 177/113 (134) 177/113 Pulse Ox 100 100 100 O2 Delivery Room Air Room Air 12/11/20 12/11/20 12/11/20 12/11/20 17:00 17:24 18:00 18:15 Pulse 110 80 70 B/P (MAP) 177/117 (137) 207/146 (166) 177/116 (136) Pulse Ox 100 O2 Delivery Room Air 12/11/20 12/11/20 19:57 19:58 Pulse 82 Resp 14 B/P (MAP) 199/110 Pulse Ox 100 O2 Delivery Room Air O2 Flow Rate 35.0 Intake and Output 12/10/20 12/10/20 12/11/20 15:00 23:00 07:00 Intake Total 1000 ml 0 ml Output Total 50 ml 300 ml Balance -50 ml 700 ml 0 ml Justicifation of Admission Dx: Justifications for Admission: Justification of Admission Dx: Yes CHF: Sev. Electrolyte Abnormal RAFAELA KRAUS MD Dec 11, 2020 20:15
[2020-12-11] MEDS ORDERED: [UNRECOGNIZED DRUG - OTHER] IV SCH (22:00)
[2020-12-11] MEDS ORDERED: DEXTROSE 70% IV SCH (22:00)
[2020-12-11] MEDS ORDERED: AMINO ACID IV SCH (22:00)
[2020-12-11] MEDS ORDERED: TOTAL PARENTERAL NUTRITION IV SCH (22:00)
[2020-12-12] MEDS: PROCHLORPERAZINE 10 MG/2 ML VIAL. IV PRN ×2 (01:30→06:41)
[2020-12-12] MEDS: fentaNYL PF VIAL 100 MCG/2 ML VIAL IVP PRN ×2 (01:38→21:30)
[2020-12-12 03:00] VITALS: BP 114/66
[2020-12-12 07:00] VITALS: BP 133/93
[2020-12-12 07:05] LABS: BASO % 0 % (0-3); EOS # 0.1 x10^3/uL (0.0-0.7); EOS % 0 % (0-3); HEMATOCRIT 30.6 % (36.0-47.0); HEMOGLOBIN 10.2 g/dL (12.0-15.5); LYMPH # 4.9 x10^3/uL (1.0-4.8); LYMPH % 32 % (24-48); MEAN CORPUSCULAR HEMOGLOBIN 33 pg (25-35); MEAN CORPUSCULAR HGB CONC 33 g/dL (31-37); MEAN CORPUSCULAR VOLUME 98 fL (79-100); MONO # 1.4 x10^3/uL (0.0-1.1); MONO % 9 % (0-9); NEUT # 8.9 x10^3/uL (1.8-7.7); NEUT % 58 % (31-73); PLATELET COUNT 231 x10^3/uL (140-400); RED BLOOD COUNT 3.12 x10^6/uL (3.50-5.40); RED CELL DISTRIBUTION WIDTH 19.3 % (11.5-14.5); WHITE BLOOD COUNT 15.3 x10^3/uL (4.0-11.0)
[2020-12-12 07:14] LABS: ALBUMIN 2.2 g/dL (3.4-5.0); ALBUMIN/GLOBULIN RATIO 0.7 (1.0-1.7); CALCIUM 8.1 mg/dL (8.5-10.1); CREATININE 0.7 mg/dL (0.6-1.0); GFR 94.7; PHOSPHORUS 2.7 mg/dL (2.6-4.7); TOTAL BILIRUBIN 0.4 mg/dL (0.2-1.0); TOTAL PROTEIN 5.2 g/dL (6.4-8.2)
[2020-12-12 07:20] LABS: POTASSIUM 2.4 mmol/L (3.5-5.1)
[2020-12-12] MEDS ORDERED: PANTOPRAZOLE 40 MG TABLET.DR. PO SCH (07:30)
[2020-12-12] MEDS: CALCIUM CARB/VIT D3 500/200 TABLET. PO SCH ×2 (08:00→17:00)
[2020-12-12] MEDS ORDERED: HYDROCORTISONE SOD SUCC/PF 100 MG/2 ML VIAL. IVP SCH (08:00)
[2020-12-12] MEDS: POTASSIUM CHLORIDE 20MEQ 100 ML IV SCH ×6 (08:00→13:00)
[2020-12-12] MEDS: PANTOPRAZOLE IV PUSH 40 MG VIAL. IVP SCH (08:01)
--- NOTE | 2020-12-12 08:09 | PDOC ---
PULMONARY PROGRESS NOTES DATE: 12/12/20 TIME: 08:09 Subjective Patient mental status improving, no respiratory distress. Vitals Vital Signs Date Time Temp Pulse Resp B/P (MAP) Pulse Ox O2 Delivery O2 Flow Rate FiO2 12/12/20 03:00 99.1 76 12 114/66 (82) 100 Room Air 99.1 12/12/20 01:38 35.0 General: Alert, No acute distress Lungs: Clear Cardiovascular: S1, S2 Abdomen: Soft Neuro Exam: Alert Extremities: Other (No significant edema) Skin: Warm Labs Laboratory Tests Test 12/11/20 05:55 12/11/20 14:00 12/12/20 06:40 White Blood Count 13.3 x10^3/uL (4.0-11.0) 15.3 x10^3/uL (4.0-11.0) Red Blood Count 3.09 x10^6/uL (3.50-5.40) 3.12 x10^6/uL (3.50-5.40) Hemoglobin 10.1 g/dL (12.0-15.5) 10.2 g/dL (12.0-15.5) Hematocrit 30.2 % (36.0-47.0) 30.6 % (36.0-47.0) Mean Corpuscular Volume 98 fL (79-100) 98 fL (79-100) Mean Corpuscular Hemoglobin 33 pg (25-35) 33 pg (25-35) Mean Corpuscular Hemoglobin Concent 34 g/dL (31-37) 33 g/dL (31-37) Red Cell Distribution Width 19.3 % (11.5-14.5) 19.3 % (11.5-14.5) Platelet Count 209 x10^3/uL (140-400) 231 x10^3/uL (140-400) Neutrophils (%) (Auto) 72 % (31-73) 58 % (31-73) Lymphocytes (%) (Auto) 20 % (24-48) 32 % (24-48) Monocytes (%) (Auto) 8 % (0-9) 9 % (0-9) Eosinophils (%) (Auto) 0 % (0-3) 0 % (0-3) Basophils (%) (Auto) 0 % (0-3) 0 % (0-3) Neutrophils # (Auto) 9.6 x10^3/uL (1.8-7.7) 8.9 x10^3/uL (1.8-7.7) Lymphocytes # (Auto) 2.7 x10^3/uL (1.0-4.8) 4.9 x10^3/uL (1.0-4.8) Monocytes # (Auto) 1.0 x10^3/uL (0.0-1.1) 1.4 x10^3/uL (0.0-1.1) Eosinophils # (Auto) 0.0 x10^3/uL (0.0-0.7) 0.1 x10^3/uL (0.0-0.7) Basophils # (Auto) 0.0 x10^3/uL (0.0-0.2) 0.0 x10^3/uL (0.0-0.2) Sodium Level 143 mmol/L (136-145) 144 mmol/L (136-145) Potassium Level 3.3 mmol/L (3.5-5.1) 2.4 mmol/L (3.5-5.1) Chloride Level 108 mmol/L (98-107) 107 mmol/L (98-107) Carbon Dioxide Level 26 mmol/L (21-32) 30 mmol/L (21-32) Anion Gap 9 (6-14) 7 (6-14) Blood Urea Nitrogen 6 mg/dL (7-20) 8 mg/dL (7-20) Creatinine 0.9 mg/dL (0.6-1.0) 0.7 mg/dL (0.6-1.0) Estimated GFR (Cockcroft-Gault) 70.8 94.7 BUN/Creatinine Ratio 7 (6-20) 11 (6-20) Glucose Level 120 mg/dL (70-99) 105 mg/dL (70-99) Calcium Level 8.2 mg/dL (8.5-10.1) 8.1 mg/dL (8.5-10.1) Phosphorus Level 3.6 mg/dL (2.6-4.7) 2.7 mg/dL (2.6-4.7) Magnesium Level 2.0 mg/dL (1.8-2.4) 2.0 mg/dL (1.8-2.4) Total Bilirubin 0.5 mg/dL (0.2-1.0) 0.4 mg/dL (0.2-1.0) Aspartate Amino Transf (AST/SGOT) 38 U/L (15-37) 37 U/L (15-37) Alanine Aminotransferase (ALT/SGPT) 25 U/L (14-59) 22 U/L (14-59) Alkaline Phosphatase 65 U/L (46-116) 55 U/L (46-116) Total Protein 5.8 g/dL (6.4-8.2) 5.2 g/dL (6.4-8.2) Albumin 2.3 g/dL (3.4-5.0) 2.2 g/dL (3.4-5.0) Albumin/Globulin Ratio 0.7 (1.0-1.7) 0.7 (1.0-1.7) Urine Collection Type Unknown Urine Color Yellow Urine Clarity Clear Urine pH 6.0 (<5.0-8.0) Urine Specific [place] 1.015 (1.000-1.030) Urine Protein Negative mg/dL (NEG-TRACE) Urine Glucose (UA) Negative mg/dL (NEG) Urine Ketones (Stick) Negative mg/dL (NEG) Urine Blood Moderate (NEG) Urine Nitrite Negative (NEG) Urine Bilirubin Negative (NEG) Urine Urobilinogen Dipstick 0.2 mg/dL (0.2 mg/dL) Urine Leukocyte Esterase Negative (NEG) Urine RBC 3-5 /HPF (0-2) Urine WBC Occ /HPF (0-4) Urine Squamous Epithelial Cells Many /LPF Urine Bacteria Few /HPF (0-FEW) Urine Hyaline Casts Occasional /HPF Urine Mucus Mod /LPF Urine Yeast Present /HPF Laboratory Tests Test 12/11/20 14:00 12/12/20 06:40 Urine Collection Type Unknown Urine Color Yellow Urine Clarity Clear Urine pH 6.0 (<5.0-8.0) Urine Specific [place] 1.015 (1.000-1.030) Urine Protein Negative mg/dL (NEG-TRACE) Urine Glucose (UA) Negative mg/dL (NEG) Urine Ketones (Stick) Negative mg/dL (NEG) Urine Blood Moderate (NEG) Urine Nitrite Negative (NEG) Urine Bilirubin Negative (NEG) Urine Urobilinogen Dipstick 0.2 mg/dL (0.2 mg/dL) Urine Leukocyte Esterase Negative (NEG) Urine RBC 3-5 /HPF (0-2) Urine WBC Occ /HPF (0-4) Urine Squamous Epithelial Cells Many /LPF Urine Bacteria Few /HPF (0-FEW) Urine Hyaline Casts Occasional /HPF Urine Mucus Mod /LPF Urine Yeast Present /HPF White Blood Count 15.3 x10^3/uL (4.0-11.0) Red Blood Count 3.12 x10^6/uL (3.50-5.40) Hemoglobin 10.2 g/dL (12.0-15.5) Hematocrit 30.6 % (36.0-47.0) Mean Corpuscular Volume 98 fL (79-100) Mean Corpuscular Hemoglobin 33 pg (25-35) Mean Corpuscular Hemoglobin Concent 33 g/dL (31-37) Red Cell Distribution Width 19.3 % (11.5-14.5) Platelet Count 231 x10^3/uL (140-400) Neutrophils (%) (Auto) 58 % (31-73) Lymphocytes (%) (Auto) 32 % (24-48) Monocytes (%) (Auto) 9 % (0-9) Eosinophils (%) (Auto) 0 % (0-3) Basophils (%) (Auto) 0 % (0-3) Neutrophils # (Auto) 8.9 x10^3/uL (1.8-7.7) Lymphocytes # (Auto) 4.9 x10^3/uL (1.0-4.8) Monocytes # (Auto) 1.4 x10^3/uL (0.0-1.1) Eosinophils # (Auto) 0.1 x10^3/uL (0.0-0.7) Basophils # (Auto) 0.0 x10^3/uL (0.0-0.2) Sodium Level 144 mmol/L (136-145) Potassium Level 2.4 mmol/L (3.5-5.1) Chloride Level 107 mmol/L (98-107) Carbon Dioxide Level 30 mmol/L (21-32) Anion Gap 7 (6-14) Blood Urea Nitrogen 8 mg/dL (7-20) Creatinine 0.7 mg/dL (0.6-1.0) Estimated GFR (Cockcroft-Gault) 94.7 BUN/Creatinine Ratio 11 (6-20) Glucose Level 105 mg/dL (70-99) Calcium Level 8.1 mg/dL (8.5-10.1) Phosphorus Level 2.7 mg/dL (2.6-4.7) Magnesium Level 2.0 mg/dL (1.8-2.4) Total Bilirubin 0.4 mg/dL (0.2-1.0) Aspartate Amino Transf (AST/SGOT) 37 U/L (15-37) Alanine Aminotransferase (ALT/SGPT) 22 U/L (14-59) Alkaline Phosphatase 55 U/L (46-116) Total Protein 5.2 g/dL (6.4-8.2) Albumin 2.2 g/dL (3.4-5.0) Albumin/Globulin Ratio 0.7 (1.0-1.7) Medications Active Scripts Medications Dose Route/Sig Max Daily Dose Days Date Category Vancomycin Hcl 125 Mg Capsule 1 Cap PO QID 10 06/12/20 Rx Fenofibrate (Fenofibrate,Micronized) 134 Mg Capsule 134 Mg PO DAILY 05/25/20 Reported Potassium Chloride (Potassium Chloride) 20 Meq Tablet.er 20 Meq PO BIDAC 30 05/07/20 Rx Reglan (Metoclopramide Hcl) 10 Mg Tablet 10 Mg PO TID PRN 03/28/20 Rx Compazine (Prochlorperazine Maleate) 10 Mg Tablet 1 Tab PO Q6HRS 03/26/20 Rx Ondansetron Odt (Ondansetron) 4 Mg Tab.rapdis 1 Tab PO PRN Q6-8HRS 03/24/20 Rx Nexium Capsule (Esomeprazole Magnesium) 40 Mg Capsule.dr 1 Cap PO DAILY 03/20/20 Reported Amitriptyline Hcl 10 Mg Tablet 1 Tab PO QHS 90 05/27/19 Rx Celexa (Citalopram Hydrobromide) 20 Mg Tablet 1 Tab PO QHS 05/27/19 Rx Comments cxr 12/09 stable Impression . IMPRESSION: 1. Acute respiratory failure secondary to cardiac arrest. on RA now 2. Ventricular fibrillation/cardiac arrest/in-house 3. Severe hypokalemia, corrected 4. Severe hypophosphatemia, corrected 5. Mildly increased bilirubin 6. History of hepatic steatosis. 7. History of tobacco use. 8. Low Mg 9. SARS-CoV-2 negative 10. Leukocytosis suspect reactive Echo report Critical Value: No <Conclusion> The left ventricular systolic function is normal. The Ejection Fraction is 55%. There is normal LV segmental wall motion. Trace mitral regurgitation. Trace tricuspid regurgitation with an estimated PAP of 22 mmHg. There is no evidence of significant pericardial effusion. Plan . Updated 12/12 Respiratory status compensated, will see as needed Okay to transfer out of the ICU Updated 12/11 0n RA start protonix for gerd may help n/v cardiology recommended cardiac cath she declined electrolytes corrected hep sq for dvt prophylaxis Discussed with RN Updated 12/10 0n RA cardiology recommended cardiac cath she declined electrolytes corrected hep sq for dvt prophylaxis Discussed with VICTORINO SOSA MD Dec 12, 2020 08:09
--- NOTE | 2020-12-12 08:40 | PDOC ---
Infectious Disease Note Subjective: Subjective Patient sleepy but arousable Improved nausea and vomiting T max 99.8 Some dry cough Has some chest wall pain but improving Denies fevers, chills diarrhea, abdominal pain, rash, symptoms Vital Signs: Vital Signs Vital Signs Date Time Temp Pulse Resp B/P (MAP) Pulse Ox O2 Delivery O2 Flow Rate FiO2 12/12/20 03:00 99.1 76 12 114/66 (82) 100 Room Air 99.1 12/12/20 01:38 35.0 Physical Exam: PHYSICAL EXAM GENERAL: Sleepy but arousable in no acute distress, ORIENTED, HEENT: Normocephalic, atraumatic NECK: Supple, full range of motion. No lymphadenopathy. LUNGS: Decreased breath sound at bases HEART: S1, S2, no murmurs. ABDOMEN: Soft, nontender, nondistended. GENITOURINARY: Hendrickson in place. EXTREMITIES: No edema, no cyanosis. DERMATOLOGIC: Warm, dry. No generalized rash. Multiple tattoos. NEUROLOGIC: Somnolent but arousable moves all 4 extremities CN 2-12 GROSSLY INTACT LINES: Right art line removed PIV looks clean. Medications: Inpatient Meds: Medications reviewed. Labs: Lab Laboratory Tests Test 12/11/20 14:00 12/12/20 06:40 Urine Collection Type Unknown Urine Color Yellow Urine Clarity Clear Urine pH 6.0 (<5.0-8.0) Urine Specific [place] 1.015 (1.000-1.030) Urine Protein Negative mg/dL (NEG-TRACE) Urine Glucose (UA) Negative mg/dL (NEG) Urine Ketones (Stick) Negative mg/dL (NEG) Urine Blood Moderate (NEG) Urine Nitrite Negative (NEG) Urine Bilirubin Negative (NEG) Urine Urobilinogen Dipstick 0.2 mg/dL (0.2 mg/dL) Urine Leukocyte Esterase Negative (NEG) Urine RBC 3-5 /HPF (0-2) Urine WBC Occ /HPF (0-4) Urine Squamous Epithelial Cells Many /LPF Urine Bacteria Few /HPF (0-FEW) Urine Hyaline Casts Occasional /HPF Urine Mucus Mod /LPF Urine Yeast Present /HPF White Blood Count 15.3 x10^3/uL (4.0-11.0) Red Blood Count 3.12 x10^6/uL (3.50-5.40) Hemoglobin 10.2 g/dL (12.0-15.5) Hematocrit 30.6 % (36.0-47.0) Mean Corpuscular Volume 98 fL (79-100) Mean Corpuscular Hemoglobin 33 pg (25-35) Mean Corpuscular Hemoglobin Concent 33 g/dL (31-37) Red Cell Distribution Width 19.3 % (11.5-14.5) Platelet Count 231 x10^3/uL (140-400) Neutrophils (%) (Auto) 58 % (31-73) Lymphocytes (%) (Auto) 32 % (24-48) Monocytes (%) (Auto) 9 % (0-9) Eosinophils (%) (Auto) 0 % (0-3) Basophils (%) (Auto) 0 % (0-3) Neutrophils # (Auto) 8.9 x10^3/uL (1.8-7.7) Lymphocytes # (Auto) 4.9 x10^3/uL (1.0-4.8) Monocytes # (Auto) 1.4 x10^3/uL (0.0-1.1) Eosinophils # (Auto) 0.1 x10^3/uL (0.0-0.7) Basophils # (Auto) 0.0 x10^3/uL (0.0-0.2) Sodium Level 144 mmol/L (136-145) Potassium Level 2.4 mmol/L (3.5-5.1) Chloride Level 107 mmol/L (98-107) Carbon Dioxide Level 30 mmol/L (21-32) Anion Gap 7 (6-14) Blood Urea Nitrogen 8 mg/dL (7-20) Creatinine 0.7 mg/dL (0.6-1.0) Estimated GFR (Cockcroft-Gault) 94.7 BUN/Creatinine Ratio 11 (6-20) Glucose Level 105 mg/dL (70-99) Calcium Level 8.1 mg/dL (8.5-10.1) Phosphorus Level 2.7 mg/dL (2.6-4.7) Magnesium Level 2.0 mg/dL (1.8-2.4) Total Bilirubin 0.4 mg/dL (0.2-1.0) Aspartate Amino Transf (AST/SGOT) 37 U/L (15-37) Alanine Aminotransferase (ALT/SGPT) 22 U/L (14-59) Alkaline Phosphatase 55 U/L (46-116) Total Protein 5.2 g/dL (6.4-8.2) Albumin 2.2 g/dL (3.4-5.0) Albumin/Globulin Ratio 0.7 (1.0-1.7) Objective: Assessment: 1. Acute hypoxic respiratory failure secondary to cardiac arrest. 2. V-Fib ,cardiac arrest, status post CPR. 3. Severe hypokalemia, hypomagnesemia, hypophosphatemia, hypocalcemia. Improving 4. Nausea ,Vomitting, Mild increased bilirubin level. Repeat CT A/P 12/11 noted 5. Pyuria urine cultures negative CT A/P 12/11 6. History of tobacco use. 7. Encephalopathy appears multifactorial, no clinical evidence of meningitis 8. Leukocytosis likely reactive and now on steroids 9. History of Kong's esophagus, reflux esophagitis, hepatic steatosis, Clostridium difficile colitis. 10. History of left groin abscess with MRSA, Peptostreptococcus beta-lactam is negative. Plan: Plan of Care Ct A/P 12/11 no acute abnormalities Monitor off antibiotics Low threshold to restart antibiotics if T >101 Maintain aspiration precautions Monitor labs and cultures Continue supportive care Discussed with CARINE CHERRY MD Dec 12, 2020 08:40
--- NOTE | 2020-12-12 09:18 | PDOC ---
DATE OF SERVICE DATE: 12/12/20 TIME: 09:17 SUBJECTIVE ROS stable OBJECTIVE Vital Signs Vital Signs Date Time Temp Pulse Resp B/P (MAP) Pulse Ox O2 Delivery O2 Flow Rate FiO2 12/12/20 03:00 99.1 76 12 114/66 (82) 100 Room Air 99.1 12/12/20 01:38 35.0 I & 0 Intake and Output 12/12/20 07:00 Intake Total 1175 ml Output Total 1705 ml Balance -530 ml IV Total 1175 ml Output Urine Total 1555 ml Emesis 150 ml PHYSICAL EXAM Physical Exam GENERAL: Sleepy but arousable in no acute distress, HEENT: Normocephalic, atraumatic , OM moist NECK: Supple LUNGS: Decreased breath sound at bases, non labored HEART: S1, S2, no murmurs. ABDOMEN: Soft, nontender, nondistended. GENITOURINARY: Hendrickson in place. EXTREMITIES: No edema, no cyanosis. DERMATOLOGIC: Warm, dry. No generalized rash. Multiple tattoos. NEUROLOGIC: Somnolent but arousable moves all 4 extremities CN 2-12 GROSSLY INTACT DIAGNOSIS/ASSESSMENT Assessment & Plan TIA-ATN: Now resolved VFIB arrest POA status post CPR. HypoKalemia : Replace with ICU protocol, adjust in TPN HypoMg : Adequate currently Nausea/ vomiting primary managing Hypernatremia: now resolved Acute hypoxic respiratory failure secondary to cardiac arrest. Pyuria urine cultures negative CT A/P 12/11 History of tobacco use. History of Kong's esophagus, reflux esophagitis, hepatic steatosis,Clostridium difficile colitis. COMMENT/RELEVANT DATA Meds Current Medications Medications (Trade) Dose Ordered Sig/[place] Start Time Stop Time Status Last Admin Dose Admin Acetaminophen (Tylenol) 650 mg Q4H 12/07/20 08:00 12/08/20 22:07 DC 12/08/20 16:22 650 MG Amiodarone HCl (Cordarone) 300 mg STK-MED ONCE 12/07/20 12:00 12/07/20 15:47 DC Atropine Sulfate (ATROPINE 0.5mg SYRINGE) 0.5 mg PRN Q5MIN PRN 12/09/20 08:45 Buspirone HCl (Buspar) 30 mg Q8H 12/07/20 08:00 12/08/20 21:06 DC 12/08/20 16:18 30 MG Calcium Gluconate 1000 mg/Sodium Chloride 110 ml @ 220 mls/hr 1X ONCE 12/09/20 14:00 12/09/20 14:29 DC 12/09/20 14:03 220 MLS/HR Calcium/Vitamin D (Oscal D 500mg/ 200uts) 1 tab [id number] 12/10/20 17:00 Cefepime HCl (Maxipime) 2 gm Q12HR 12/08/20 21:30 12/11/20 10:31 DC 12/11/20 08:54 2 GM Chlorhexidine Gluconate (Peridex) 15 ml BID 12/07/20 09:00 12/07/20 18:44 DC 12/07/20 09:00 15 ML Dexmedetomidine HCl 400 mcg/ Sodium Chloride 100 ml @ 0 mls/hr CONT PRN 12/09/20 08:45 Dextrose (Dextrose 50%-Water Syringe) 12.5 gm PRN Q15MIN PRN 12/08/20 10:00 12/08/20 10:04 50 GM Dextrose/Sodium Chloride 1,000 ml @ 75 mls/hr [id number] 12/08/20 13:45 12/08/20 18:42 DC 12/08/20 14:16 75 MLS/HR Diphenhydramine HCl (Benadryl) 50 mg 1X ONCE 12/07/20 05:30 12/07/20 05:31 DC 12/07/20 05:14 50 MG Dopamine HCl/ Dextrose 250 ml @ 13.481 mls/ hr CONT PRN 12/08/20 06:45 Epinephrine HCl (EPINEPHrine SYRINGE) 3 mg STK-MED ONCE 12/07/20 12:00 12/07/20 15:47 DC Famotidine (Pepcid Vial) 20 mg BID 12/07/20 09:00 12/07/20 10:56 DC Fentanyl Citrate (Fentanyl 2ml Vial) 50 mcg PRN Q3HRS PRN 12/10/20 21:00 12/12/20 01:38 50 MCG Glycerin/ Hypromellose/ Polyethylene (Artificial Tears) 1 drop PRN Q15MIN PRN 12/07/20 08:00 12/10/20 21:08 DC Haloperidol Lactate (Haldol Inj) 5 mg 1X ONCE 12/07/20 05:30 12/07/20 05:31 DC 12/07/20 05:14 5 MG Heparin Sodium (Porcine) (Heparin Sodium) 5,000 unit BID 12/11/20 09:00 12/11/20 20:21 5,000 UNIT Hydralazine HCl (Apresoline Inj) 10 mg PRN Q4HRS PRN 12/11/20 11:30 12/11/20 19:57 10 MG Hydrocortisone Sodium Succinate (Solu-CORTEF) 40 mg DAILY16 12/11/20 16:00 12/11/20 16:12 40 MG Info (Icu Electrolyte Protocol) 1 ea CONT PRN PRN 12/11/20 08:30 Info (Tpn Per Pharmacy) 1 each PRN DAILY PRN 12/11/20 08:30 12/11/20 12:01 1 EACH Lorazepam (Ativan Inj) 2 mg PRN Q6HRS PRN 12/09/20 19:00 12/11/20 18:02 DC 12/11/20 18:02 2 MG Magnesium Sulfate 50 ml @ 25 mls/hr PRN DAILY PRN 12/10/20 13:15 Magnesium Sulfate/ Dextrose 100 ml @ 100 mls/hr 1X ONCE 12/08/20 19:00 12/08/20 19:59 DC 12/08/20 18:51 100 MLS/HR Magnesium Sulfate/ Dextrose (Magnesium Sulfate PREMIX 1GM) 1 gm STK-MED ONCE 12/07/20 12:00 12/07/20 15:47 DC Metoclopramide HCl (Reglan Vial) 10 mg 1X ONCE 12/07/20 05:30 12/07/20 05:05 DC Midazolam HCl (Versed) 5 mg STK-MED ONCE 12/07/20 12:00 12/07/20 15:47 DC Nicardipine HCl 50 mg/Sodium Chloride 250 ml @ 25 mls/hr CONT PRN 12/11/20 19:15 12/11/20 19:44 25 MLS/HR Norepinephrine Bitartrate 8 mg/ Dextrose 258 ml @ 13.913 mls/ hr CONT PRN 12/08/20 15:00 12/08/20 15:11 13.5 MLS/HR Ondansetron HCl (Zofran) 4 mg PRN Q8HRS PRN 12/09/20 13:45 12/09/20 15:37 DC 12/09/20 13:52 4 MG Pantoprazole Sodium (PROTONIX VIAL for IV PUSH) 40 mg DAILYAC 12/11/20 09:00 12/12/20 08:01 40 MG Pantoprazole Sodium (Protonix) 40 mg 1X ONCE 12/11/20 07:45 12/11/20 07:46 Cancel Potassium Chloride/Dextrose/ Sod Cl 1,000 ml @ 75 mls/hr [id number] 12/09/20 11:45 12/11/20 08:23 DC 12/11/20 05:12 75 MLS/HR Potassium Chloride/Sodium Chloride 1,000 ml @ 125 mls/hr Q8H 12/07/20 06:30 12/07/20 14:29 DC 12/07/20 06:30 125 MLS/HR Potassium Chloride/Water 100 ml @ 100 mls/hr Q1HR 12/12/20 08:00 12/12/20 13:59 12/12/20 08:00 100 MLS/HR Potassium Phosphate 10 mmol/ Sodium Chloride 103.3333 ml @ 51.667 m... Q2H 12/07/20 12:00 12/07/20 15:59 DC 12/07/20 13:43 51.667 MLS/HR Prochlorperazine Edisylate (Compazine) 10 mg PRN Q4HRS PRN 12/10/20 21:00 12/12/20 06:41 10 MG Promethazine HCl (Phenergan) 12.5 mg PRN Q6HRS PRN 12/09/20 16:45 12/09/20 17:07 DC Propofol 100 ml @ 0 mls/hr CONT PRN 12/07/20 08:00 12/10/20 21:08 DC 12/09/20 04:08 13 MLS/HR Ringer's Solution 500 ml @ 1,000 mls/hr 1X ONCE 12/07/20 05:30 12/07/20 05:59 DC 12/07/20 05:13 1,000 MLS/HR Sodium Acetate 50 meq/Potassium Chloride 50 meq/ Potassium Phosphate 13.6 mmol/Magnesium Sulfate 10 meq/ Calcium Gluconate 10 meq/ Multivitamins 5 ml/Zinc/Copper/ Manganese/ Selenium 1 ml/ Total Parenteral Nutrition/Amino Acids/Dextrose/ Fat Emulsion Intravenous 1,512 ml @ 63 mls/hr TPN CONT 12/11/20 22:00 12/12/20 21:59 12/11/20 22:48 63 MLS/HR Sodium Bicarbonate (Sodium Bicarb Adult 8.4% Syr) 50 meq STK-MED ONCE 12/07/20 12:00 12/07/20 15:47 DC Sodium Chloride 500 ml @ 500 mls/hr 1X PRN PRN 12/09/20 08:45 Vecuronium [place] (Norcuron Bolus) 6 mg PRN Q1HR PRN 12/07/20 08:00 12/10/20 21:08 DC 12/07/20 08:47 6 MG Lab Laboratory Tests Test 12/11/20 14:00 12/12/20 06:40 Urine Collection Type Unknown Urine Color Yellow Urine Clarity Clear Urine pH 6.0 (<5.0-8.0) Urine Specific [place] 1.015 (1.000-1.030) Urine Protein Negative mg/dL (NEG-TRACE) Urine Glucose (UA) Negative mg/dL (NEG) Urine Ketones (Stick) Negative mg/dL (NEG) Urine Blood Moderate (NEG) Urine Nitrite Negative (NEG) Urine Bilirubin Negative (NEG) Urine Urobilinogen Dipstick 0.2 mg/dL (0.2 mg/dL) Urine Leukocyte Esterase Negative (NEG) Urine RBC 3-5 /HPF (0-2) Urine WBC Occ /HPF (0-4) Urine Squamous Epithelial Cells Many /LPF Urine Bacteria Few /HPF (0-FEW) Urine Hyaline Casts Occasional /HPF Urine Mucus Mod /LPF Urine Yeast Present /HPF White Blood Count 15.3 x10^3/uL (4.0-11.0) Red Blood Count 3.12 x10^6/uL (3.50-5.40) Hemoglobin 10.2 g/dL (12.0-15.5) Hematocrit 30.6 % (36.0-47.0) Mean Corpuscular Volume 98 fL (79-100) Mean Corpuscular Hemoglobin 33 pg (25-35) Mean Corpuscular Hemoglobin Concent 33 g/dL (31-37) Red Cell Distribution Width 19.3 % (11.5-14.5) Platelet Count 231 x10^3/uL (140-400) Neutrophils (%) (Auto) 58 % (31-73) Lymphocytes (%) (Auto) 32 % (24-48) Monocytes (%) (Auto) 9 % (0-9) Eosinophils (%) (Auto) 0 % (0-3) Basophils (%) (Auto) 0 % (0-3) Neutrophils # (Auto) 8.9 x10^3/uL (1.8-7.7) Lymphocytes # (Auto) 4.9 x10^3/uL (1.0-4.8) Monocytes # (Auto) 1.4 x10^3/uL (0.0-1.1) Eosinophils # (Auto) 0.1 x10^3/uL (0.0-0.7) Basophils # (Auto) 0.0 x10^3/uL (0.0-0.2) Sodium Level 144 mmol/L (136-145) Potassium Level 2.4 mmol/L (3.5-5.1) Chloride Level 107 mmol/L (98-107) Carbon Dioxide Level 30 mmol/L (21-32) Anion Gap 7 (6-14) Blood Urea Nitrogen 8 mg/dL (7-20) Creatinine 0.7 mg/dL (0.6-1.0) Estimated GFR (Cockcroft-Gault) 94.7 BUN/Creatinine Ratio 11 (6-20) Glucose Level 105 mg/dL (70-99) Calcium Level 8.1 mg/dL (8.5-10.1) Phosphorus Level 2.7 mg/dL (2.6-4.7) Magnesium Level 2.0 mg/dL (1.8-2.4) Total Bilirubin 0.4 mg/dL (0.2-1.0) Aspartate Amino Transf (AST/SGOT) 37 U/L (15-37) Alanine Aminotransferase (ALT/SGPT) 22 U/L (14-59) Alkaline Phosphatase 55 U/L (46-116) Total Protein 5.2 g/dL (6.4-8.2) Albumin 2.2 g/dL (3.4-5.0) Albumin/Globulin Ratio 0.7 (1.0-1.7) Results All relevant outside records, renal labs, imaging studies, telemetry/EKG's were reviewed. Justicifation of Admission Dx: Justifications for Admission: Justification of Admission Dx: Yes CHF: Sev. Electrolyte Abnormal TRISTEN ESTEBAN MD Dec 12, 2020 09:17
--- NOTE | 2020-12-12 09:23 | PDOC ---
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 Knows location, not sure of precise date, names, repeats, comprehends with fluent speech PERRL. EOMI. CN: no focal findings. Muscle tone: normal. Muscle strength:/5 DTR: 1+ Plantar reflex: Flexor Gait: not examined in bed. Sensory exam: no abnormal findings. No cerebellar signs elicited. Review of Relevant I have reviewed the following items josué (where applicable) has been applied. Labs Laboratory Tests Test 12/11/20 05:55 12/11/20 14:00 12/12/20 06:40 White Blood Count 13.3 x10^3/uL (4.0-11.0) 15.3 x10^3/uL (4.0-11.0) Red Blood Count 3.09 x10^6/uL (3.50-5.40) 3.12 x10^6/uL (3.50-5.40) Hemoglobin 10.1 g/dL (12.0-15.5) 10.2 g/dL (12.0-15.5) Hematocrit 30.2 % (36.0-47.0) 30.6 % (36.0-47.0) Mean Corpuscular Volume 98 fL (79-100) 98 fL (79-100) Mean Corpuscular Hemoglobin 33 pg (25-35) 33 pg (25-35) Mean Corpuscular Hemoglobin Concent 34 g/dL (31-37) 33 g/dL (31-37) Red Cell Distribution Width 19.3 % (11.5-14.5) 19.3 % (11.5-14.5) Platelet Count 209 x10^3/uL (140-400) 231 x10^3/uL (140-400) Neutrophils (%) (Auto) 72 % (31-73) 58 % (31-73) Lymphocytes (%) (Auto) 20 % (24-48) 32 % (24-48) Monocytes (%) (Auto) 8 % (0-9) 9 % (0-9) Eosinophils (%) (Auto) 0 % (0-3) 0 % (0-3) Basophils (%) (Auto) 0 % (0-3) 0 % (0-3) Neutrophils # (Auto) 9.6 x10^3/uL (1.8-7.7) 8.9 x10^3/uL (1.8-7.7) Lymphocytes # (Auto) 2.7 x10^3/uL (1.0-4.8) 4.9 x10^3/uL (1.0-4.8) Monocytes # (Auto) 1.0 x10^3/uL (0.0-1.1) 1.4 x10^3/uL (0.0-1.1) Eosinophils # (Auto) 0.0 x10^3/uL (0.0-0.7) 0.1 x10^3/uL (0.0-0.7) Basophils # (Auto) 0.0 x10^3/uL (0.0-0.2) 0.0 x10^3/uL (0.0-0.2) Sodium Level 143 mmol/L (136-145) 144 mmol/L (136-145) Potassium Level 3.3 mmol/L (3.5-5.1) 2.4 mmol/L (3.5-5.1) Chloride Level 108 mmol/L (98-107) 107 mmol/L (98-107) Carbon Dioxide Level 26 mmol/L (21-32) 30 mmol/L (21-32) Anion Gap 9 (6-14) 7 (6-14) Blood Urea Nitrogen 6 mg/dL (7-20) 8 mg/dL (7-20) Creatinine 0.9 mg/dL (0.6-1.0) 0.7 mg/dL (0.6-1.0) Estimated GFR (Cockcroft-Gault) 70.8 94.7 BUN/Creatinine Ratio 7 (6-20) 11 (6-20) Glucose Level 120 mg/dL (70-99) 105 mg/dL (70-99) Calcium Level 8.2 mg/dL (8.5-10.1) 8.1 mg/dL (8.5-10.1) Phosphorus Level 3.6 mg/dL (2.6-4.7) 2.7 mg/dL (2.6-4.7) Magnesium Level 2.0 mg/dL (1.8-2.4) 2.0 mg/dL (1.8-2.4) Total Bilirubin 0.5 mg/dL (0.2-1.0) 0.4 mg/dL (0.2-1.0) Aspartate Amino Transf (AST/SGOT) 38 U/L (15-37) 37 U/L (15-37) Alanine Aminotransferase (ALT/SGPT) 25 U/L (14-59) 22 U/L (14-59) Alkaline Phosphatase 65 U/L (46-116) 55 U/L (46-116) Total Protein 5.8 g/dL (6.4-8.2) 5.2 g/dL (6.4-8.2) Albumin 2.3 g/dL (3.4-5.0) 2.2 g/dL (3.4-5.0) Albumin/Globulin Ratio 0.7 (1.0-1.7) 0.7 (1.0-1.7) Urine Collection Type Unknown Urine Color Yellow Urine Clarity Clear Urine pH 6.0 (<5.0-8.0) Urine Specific [place] 1.015 (1.000-1.030) Urine Protein Negative mg/dL (NEG-TRACE) Urine Glucose (UA) Negative mg/dL (NEG) Urine Ketones (Stick) Negative mg/dL (NEG) Urine Blood Moderate (NEG) Urine Nitrite Negative (NEG) Urine Bilirubin Negative (NEG) Urine Urobilinogen Dipstick 0.2 mg/dL (0.2 mg/dL) Urine Leukocyte Esterase Negative (NEG) Urine RBC 3-5 /HPF (0-2) Urine WBC Occ /HPF (0-4) Urine Squamous Epithelial Cells Many /LPF Urine Bacteria Few /HPF (0-FEW) Urine Hyaline Casts Occasional /HPF Urine Mucus Mod /LPF Urine Yeast Present /HPF Laboratory Tests Test 12/11/20 14:00 12/12/20 06:40 Urine Collection Type Unknown Urine Color Yellow Urine Clarity Clear Urine pH 6.0 (<5.0-8.0) Urine Specific [place] 1.015 (1.000-1.030) Urine Protein Negative mg/dL (NEG-TRACE) Urine Glucose (UA) Negative mg/dL (NEG) Urine Ketones (Stick) Negative mg/dL (NEG) Urine Blood Moderate (NEG) Urine Nitrite Negative (NEG) Urine Bilirubin Negative (NEG) Urine Urobilinogen Dipstick 0.2 mg/dL (0.2 mg/dL) Urine Leukocyte Esterase Negative (NEG) Urine RBC 3-5 /HPF (0-2) Urine WBC Occ /HPF (0-4) Urine Squamous Epithelial Cells Many /LPF Urine Bacteria Few /HPF (0-FEW) Urine Hyaline Casts Occasional /HPF Urine Mucus Mod /LPF Urine Yeast Present /HPF White Blood Count 15.3 x10^3/uL (4.0-11.0) Red Blood Count 3.12 x10^6/uL (3.50-5.40) Hemoglobin 10.2 g/dL (12.0-15.5) Hematocrit 30.6 % (36.0-47.0) Mean Corpuscular Volume 98 fL (79-100) Mean Corpuscular Hemoglobin 33 pg (25-35) Mean Corpuscular Hemoglobin Concent 33 g/dL (31-37) Red Cell Distribution Width 19.3 % (11.5-14.5) Platelet Count 231 x10^3/uL (140-400) Neutrophils (%) (Auto) 58 % (31-73) Lymphocytes (%) (Auto) 32 % (24-48) Monocytes (%) (Auto) 9 % (0-9) Eosinophils (%) (Auto) 0 % (0-3) Basophils (%) (Auto) 0 % (0-3) Neutrophils # (Auto) 8.9 x10^3/uL (1.8-7.7) Lymphocytes # (Auto) 4.9 x10^3/uL (1.0-4.8) Monocytes # (Auto) 1.4 x10^3/uL (0.0-1.1) Eosinophils # (Auto) 0.1 x10^3/uL (0.0-0.7) Basophils # (Auto) 0.0 x10^3/uL (0.0-0.2) Sodium Level 144 mmol/L (136-145) Potassium Level 2.4 mmol/L (3.5-5.1) Chloride Level 107 mmol/L (98-107) Carbon Dioxide Level 30 mmol/L (21-32) Anion Gap 7 (6-14) Blood Urea Nitrogen 8 mg/dL (7-20) Creatinine 0.7 mg/dL (0.6-1.0) Estimated GFR (Cockcroft-Gault) 94.7 BUN/Creatinine Ratio 11 (6-20) Glucose Level 105 mg/dL (70-99) Calcium Level 8.1 mg/dL (8.5-10.1) Phosphorus Level 2.7 mg/dL (2.6-4.7) Magnesium Level 2.0 mg/dL (1.8-2.4) Total Bilirubin 0.4 mg/dL (0.2-1.0) Aspartate Amino Transf (AST/SGOT) 37 U/L (15-37) Alanine Aminotransferase (ALT/SGPT) 22 U/L (14-59) Alkaline Phosphatase 55 U/L (46-116) Total Protein 5.2 g/dL (6.4-8.2) Albumin 2.2 g/dL (3.4-5.0) Albumin/Globulin Ratio 0.7 (1.0-1.7) Microbiology 12/08/20 Blood Culture - Preliminary, Resulted NO GROWTH AFTER 3 DAYS 12/07/20 Urine Culture - Final, Complete Medications Current Medications Ringer's Solution 500 ml @ 500 mls/hr 1X ONCE IV ; Start 12/07/20 at 05:00; Stop 12/07/20 at 05:59; Status DC Ringer's Solution 500 ml @ 500 mls/hr 1X ONCE IV ; Start 12/07/20 at 05:00; Stop 12/07/20 at 05:59; Status DC Metoclopramide HCl (Reglan Vial) 10 mg 1X ONCE IVP ; Start 12/07/20 at 05:30; Stop 12/07/20 at 05:05; Status DC Ringer's Solution 500 ml @ 500 mls/hr 1X ONCE IV ; Start 12/07/20 at 05:30; Stop 12/07/20 at 06:29; Status DC Haloperidol Lactate (Haldol Inj) 5 mg STK-MED ONCE .ROUTE ; Start 12/07/20 at 05:05; Stop 12/07/20 at 05:05; Status DC Haloperidol Lactate (Haldol Inj) 5 mg 1X ONCE IVP Last administered on 12/07/20at 05:14; Start 12/07/20 at 05:30; Stop 12/07/20 at 05:31; Status DC Diphenhydramine HCl (Benadryl) 50 mg 1X ONCE IVP Last administered on 12/07/20at 05:14; Start 12/07/20 at 05:30; Stop 12/07/20 at 05:31; Status DC Ringer's Solution 500 ml @ 1,000 mls/hr 1X ONCE IV Last administered on 12/07at 05:13; Start 12/07/20 at 05:30; Stop 12/07/20 at 05:59; Status DC Propofol 100 ml @ As Directed STK-MED ONCE IV ; Start 12/07/20 at 05:56; Stop 12/07/20 at 05:56; Status DC Potassium Chloride/Sodium Chloride 1,000 ml @ 125 mls/hr Q8H IV Last adm inistered on 12/07/20at 06:30; Start 12/07/20 at 06:30; Stop 12/07/20 at 14:29; Status DC Midazolam HCl (Versed) 5 mg STK-MED ONCE .ROUTE ; Start 12/07/20 at 06:29; Stop 12/07/20 at 06:30; Status DC Fentanyl Citrate 30 ml @ 0 mls/hr CONT PRN IV SEE PROTOCOL; Start 12/07/20 at 07:00; Status Cancel Chlorhexidine Gluconate (Peridex) 15 ml BID MM Last administered on 12/07/20at 09:00; Start 12/07/20 at 09:00; Stop 12/07/20 at 18:44; Status DC Midazolam HCl 100 ml @ 0 mls/hr CONT PRN IV SEE PROTOCOL Last administered on 12/07/20at 20:29; Start 12/07/20 at 07:00; Stop 12/09/20 at 15:37; Status DC Magnesium Sulfate 100 ml @ 25 mls/hr 1X ONCE IV Last administered on 12/07/20at 08:47; Start 12/07/20 at 07:30; Stop 12/07/20 at 11:29; Status DC Famotidine (Pepcid Vial) 20 mg BID IVP ; Start 12/07/20 at 09:00; Stop 12/07/20 at 10:56; Status DC Buspirone HCl (Buspar) 30 mg Q8H NG Last administered on 12/08/20at 16:18; Start 12/07/20 at 08:00; Stop 12/08/20 at 21:06; Status DC Acetaminophen (Tylenol) 650 mg Q4H NG Last administered on 12/08/20at 16:22; Start 12/07/20 at 08:00; Stop 12/08/20 at 22:07; Status DC Glycerin/ Hypromellose/ Polyethylene (Artificial Tears) 1 drop Q6HRS OU Last administered on 12/07/20at 17:25; Start 12/07/20 at 12:00; Stop 12/07/20 at 18 :44; Status DC Glycerin/ Hypromellose/ Polyethylene (Artificial Tears) 1 drop PRN Q15MIN PRN OU DRY EYE; Start 12/07/20 at 08:00; Stop 12/10/20 at 21:08; Status DC Heparin Sodium (Porcine) (Heparin Sodium) 5,000 unit BID SQ Last administered on 12/10/20at 20:45; Start 12/07/20 at 09:00; Stop 12/10/20 at 21:08; Status DC Pantoprazole Sodium (PROTONIX VIAL for IV PUSH) 40 mg DAILY IVP Last administered on 12/10/20at 09:27; Start 12/07/20 at 09:00; Stop 12/10/20 at 21:08; Status DC Fentanyl Citrate 30 ml @ 0 mls/hr CONT PRN IV PER PROTOCOL. Last administered on 12/09/20at 04:17; Start 12/07/20 at 08:00; Stop 12/10/20 at 21:08; Status DC Propofol 100 ml @ 0 mls/hr CONT PRN IV PER PROTOCOL. Last administered on 12/09/20at 04:08; Start 12/07/20 at 08:00; Stop 12/10/20 at 21:08; Status DC Midazolam HCl 100 ml @ 0 mls/hr CONT PRN IV PER PROTOCOL; Start 12/07/20 at 08:00; Status UNV Vecuronium Hooks (Norcuron Bolus) 6 mg PRN Q1HR PRN IV SHIVERING Last administered on 12/07/20at 08:47; Start 12/07/20 at 08:00; Stop 12/10/20 at 21:08; Status DC Potassium Chloride/Water 100 ml @ 100 mls/hr Q1H IV Last administered on 12/07/20at 10:49; Start 12/07/20 at 09:00; Stop 12/07/20 at 12:59; Status DC Potassium Chloride/Water 100 ml @ 100 mls/hr Q1H IV ; Start 12/07/20 at 12:00; Stop 12/07/20 at 14:59; Status DC Potassium Phosphate 10 mmol/ Sodium Chloride 103.3333 ml @ 51.667 m... Q2H IV Last administered on 12/07/20at 12:00; Start 12/07/20 at 10:00; Stop 12/07/20 at 13:59; Status DC Potassium Phosphate 10 mmol/ Sodium Chloride 103.3333 ml @ 51.667 m... Q2H IV Last administered on 12/07/20at 13:43; Start 12/07/20 at 12:00; Stop 12/07/20 at 15:59; Status DC Sodium Bicarbonate (Sodium Bicarb Adult 8.4% Syr) 50 meq STK-MED ONCE .ROUTE ; Start 12/07/20 at 12:00; Stop 12/07/20 at 15:47; Status DC Amiodarone HCl (Cordarone) 300 mg STK-MED ONCE .ROUTE ; Start 12/07/20 at 12:00; Stop 12/07/20 at 15:47; Status DC Epinephrine HCl (EPINEPHrine SYRINGE) 3 mg STK-MED ONCE .ROUTE ; Start 12/07/20 at 12:00; Stop 12/07/20 at 15:47; Status DC Midazolam HCl (Versed) 5 mg STK-MED ONCE .ROUTE ; Start 12/07/20 at 12:00; Stop 12/07/20 at 15:47; Status DC Magnesium Sulfate/ Dextrose (Magnesium Sulfate PREMIX 1GM) 1 gm STK-MED ONCE IV ; Start 12/07/20 at 12:00; Stop 12/07/20 at 15:47; Status DC Sodium Chloride 1,000 ml @ 50 mls/hr Q20H IV Last administered on 12/08/20at 13:13; Start 12/07/20 at 17:30; Stop 12/08/20 at 13:53; Status DC Potassium Chloride/Water 100 ml @ 100 mls/hr 1X ONCE IV Last administered on 12/07/20at 23:35; Start 12/07/20 at 23:30; Stop 12/08/20 at 00:29; Status DC Dopamine HCl/ Dextrose 250 ml @ 13.481 mls/ hr CONT PRN IV SEE I/O RECORD; Start 12/08/20 at 06:45 Dextrose (Dextrose 50%-Water Syringe) 12.5 gm PRN Q15MIN PRN IV SEE COMMENTS Last administered on 12/08/20at 10:04; Start 12/08/20 at 10:00 Potassium Chloride/Water 100 ml @ 100 mls/hr 1X ONCE IV Last administered on 12/08/20at 14:27; Start 12/08/20 at 13:45; Stop 12/08/20 at 14:44; Status DC Dextrose/Sodium Chloride 1,000 ml @ 75 mls/hr [id number] IV Last administered on 12/08/20at 14:16; Start 12/08/20 at 13:45; Stop 12/08/20 at 18:42; Status DC Norepinephrine Bitartrate 8 mg/ Dextrose 258 ml @ 13.913 mls/ hr CONT PRN IV PER PROTOCOL Last administered on 12/08/20at 15:11; Start 12/08/20 at 15:00 Hydrocortisone Sodium Succinate (Solu-CORTEF) 100 mg Q12HR IVP Last administered on 12/11/20at 08:54; Start 12/08/20 at 15:30; Stop 12/11/20 at 13:13; Status DC Potassium Chloride/Dextrose/ Sod Cl 1,000 ml @ 125 mls/hr Q8H IV Last administered on 12/09/20at 04:09; Start 12/08/20 at 19:00; Stop 12/09/20 at 11:13; Status DC Potassium Chloride/Water 100 ml @ 100 mls/hr Q1H IV Last administered on 12/08/20at 20:03; Start 12/08/20 at 19:00; Stop 12/08/20 at 20:59; Status DC Magnesium Sulfate/ Dextrose 100 ml @ 100 mls/hr 1X ONCE IV Last administered on 12/08/20at 18:51; Start 12/08/20 at 19:00; Stop 12/08/20 at 19:59; Status DC Cefepime HCl (Maxipime) 2 gm Q12HR IVP Last administered on 12/11/20at 08:54; Start 12/08/20 at 21:30; Stop 12/11/20 at 10:31; Status DC Calcium Gluconate 1000 mg/Sodium Chloride 110 ml @ 220 mls/hr 1X ONCE IV Last administered on 12/08/20at 23:40; Start 12/08/20 at 22:30; Stop 12/08/20 at 22:59; Status DC Dexmedetomidine HCl 400 mcg/ Sodium Chloride 100 ml @ 0 mls/hr CONT PRN IV PER PROTOCOL; Start 12/09/20 at 08:45 Sodium Chloride 500 ml @ 500 mls/hr 1X PRN PRN IV SEE COMMENTS; Start 12/09/20 at 08:45 Atropine Sulfate (ATROPINE 0.5mg SYRINGE) 0.5 mg PRN Q5MIN PRN IV SEE COMMENTS; Start 12/09/20 at 08:45 Potassium Chloride/Dextrose/ Sod Cl 1,000 ml @ 75 mls/hr [id number] IV ; Start 12/09/20 at 11:15; Stop 12/09/20 at 11:35; Status DC Potassium Chloride/Dextrose/ Sod Cl 1,000 ml @ 75 mls/hr [id number] IV Last administered on 12/11/20at 05:12; Start 12/09/20 at 11:45; Stop 12/11/20 at 08:23; Status DC Calcium Gluconate 1000 mg/Sodium Chloride 110 ml @ 220 mls/hr 1X ONCE IV Last administered on 12/09/20at 14:03; Start 12/09/20 at 14:00; Stop 12/09/20 at 14:29; Status DC Ondansetron HCl (Zofran) 4 mg PRN Q8HRS PRN IVP NAUSEA/VOMITING Last administered on 12/09/20at 13:52; Start 12/09/20 at 13:45; Stop 12/09/20 at 15:37; Status DC Promethazine HCl (Phenergan) 12.5 mg PRN Q6HRS PRN PO NAUSEA/VOMITING; Start 12/09/20 at 15:30; Stop 12/09/20 at 15:37; Status DC Promethazine HCl (Phenergan) 12.5 mg PRN Q6HRS PRN PO NAUSEA/VOMITING; Start 12/09/20 at 16:45; Stop 12/09/20 at 17:07; Status DC Prochlorperazine Edisylate (Compazine) 10 mg PRN Q6HRS PRN IV NAUSEA/VOMITING Last administered on 12/10/20at 18:46; Start 12/09/20 at 17:15; Stop 12/10/20 at 21:08; Status DC Lorazepam (Ativan Inj) 2 mg PRN Q6HRS PRN IVP ANXIETY / AGITATION Last administered on 12/11/20at 18:02; Start 12/09/20 at 19:00; Stop 12/11/20 at 18:02; Status DC Calcium/Vitamin D (Oscal D 500mg/ 200uts) 1 tab BIDWMEALS PO ; Start 12/10/20 at 17:00 Magnesium Sulfate 50 ml @ 25 mls/hr PRN DAILY PRN IV for Mag < 1.7 on am labs; Start 12/10/20 at 13:15 Fentanyl Citrate (Fentanyl 2ml Vial) 50 mcg PRN Q3HRS PRN IVP PAIN Last administered on 12/12/20at 01:38; Start 12/10/20 at 21:00 Prochlorperazine Edisylate (Compazine) 10 mg PRN Q4HRS PRN IV NAUSEA/VOMITING Last administered on 12/12/20at 06:41; Start 12/10/20 at 21:00 Heparin Sodium (Porcine) (Heparin Sodium) 5,000 unit BID SQ Last administered on 12/11/20at 20:21; Start 12/11/20 at 09:00 Pantoprazole Sodium (Protonix) 40 mg DAILYAC PO ; Start 12/12/20 at 07:30; Status Cancel Pantoprazole Sodium (Protonix) 40 mg 1X ONCE PO ; Start 12/11/20 at 07:45; Stop 12/11/20 at 07:46; Status Cancel Info (Icu Electrolyte Protocol) 1 ea CONT PRN PRN MC PER PROTOCOL; Start 12/11/20 at 08:30 Info (Tpn Per Pharmacy) 1 each PRN DAILY PRN MC SEE COMMENTS Last administered on 12/11/20at 12:01; Start 12/11/20 at 08:30 Pantoprazole Sodium (PROTONIX VIAL for IV PUSH) 40 mg DAILYAC IVP Last admi nistered on 12/12/20at 08:01; Start 12/11/20 at 09:00 Potassium Chloride/Water 100 ml @ 100 mls/hr Q1H IV Last administered on 12/11/20at 10:00; Start 12/11/20 at 09:00; Stop 12/11/20 at 10:59; Status DC Hydralazine HCl (Apresoline Inj) 10 mg PRN Q4HRS PRN IVP ELEVATED BP, SEE COMMENTS Last administered on 12/11/20at 19:57; Start 12/11/20 at 11:30 Sodium Acetate 50 meq/Potassium Chloride 50 meq/ Potassium Phosphate 13.6 mmol/Magnesium Sulfate 10 meq/ Calcium Gluconate 10 meq/ Multivitamins 5 ml/Zinc/Copper/ Manganese/ Selenium 1 ml/ Total Parenteral Nutrition/Amino Acids/Dextrose/ Fat Emulsion Intravenous 1,512 ml @ 63 mls/hr TPN CONT IV Last administered on 12/11/20at 22:48; Start 12/11/20 at 22:00; Stop 12/12/20 at 21:59 Hydrocortisone Sodium Succinate (Solu-CORTEF) 80 mg DAILY08 IVP Last administered on 12/12/20at 08:01; Start 12/12/20 at 08:00 Hydrocortisone Sodium Succinate (Solu-CORTEF) 40 mg DAILY16 IVP Last administered on 12/11/20at 16:12; Start 12/11/20 at 16:00 Nicardipine HCl 50 mg/Sodium Chloride 250 ml @ 25 mls/hr CONT PRN IV SEE I/O RECORD Last administered on 12/11/20at 19:44; Start 12/11/20 at 19:15 Potassium Chloride/Water 100 ml @ 100 mls/hr Q1HR IV Last administered on 12/12/20at 08:00; Start 12/12/20 at 08:00; Stop 12/12/20 at 13:59 Active Scripts Active Vancomycin Hcl 125 Mg Capsule 1 Cap PO QID 10 Days Potassium Chloride (Potassium Chloride) 20 Meq Tablet.er 20 Meq PO BIDAC 30 Days Reglan (Metoclopramide Hcl) 10 Mg Tablet 10 Mg PO TID PRN Compazine (Prochlorperazine Maleate) 10 Mg Tablet 1 Tab PO Q6HRS Ondansetron Odt (Ondansetron) 4 Mg Tab.rapdis 1 Tab PO PRN Q6-8HRS Amitriptyline Hcl 10 Mg Tablet 1 Tab PO QHS 90 Days Celexa (Citalopram Hydrobromide) 20 Mg Tablet 1 Tab PO QHS Reported Fenofibrate (Fenofibrate,Micronized) 134 Mg Capsule 134 Mg PO DAILY Nexium Capsule (Esomeprazole Magnesium) 40 Mg Capsule.dr 1 Cap PO DAILY Vitals/I & O Vital Sign - Last 24 Hours 12/11/20 12/11/20 12/11/20 12/11/20 11:09 11:29 12:03 12:18 Temp 99.1 99.1 Pulse 53 53 66 B/P (MAP) 184/107 (132) 184/107 154/93 (113) Pulse Ox 100 100 100 O2 Delivery Room Air Room Air Room Air 12/11/20 12/11/20 12/11/20 12/11/20 12:48 15:02 15:20 16:54 Temp 99.8 99.8 Pulse 65 65 B/P (MAP) 177/113 (134) 177/113 Pulse Ox 100 100 100 O2 Delivery Room Air Room Air 12/11/20 12/11/20 12/11/20 12/11/20 17:00 17:24 18:00 18:15 Pulse 110 80 70 B/P (MAP) 177/117 (137) 207/146 (166) 177/116 (136) Pulse Ox 100 O2 Delivery Room Air 12/11/20 12/11/20 12/11/20 12/11/20 19:00 19:57 19:58 20:00 Temp 99.1 99.1 Pulse 61 82 82 Resp 14 B/P (MAP) 199/110 (139) 199/110 138/94 (109) Pulse Ox 100 100 99 O2 Delivery Room Air O2 Flow Rate 35.0 12/11/20 12/11/20 12/11/20 12/11/20 20:00 20:15 20:28 20:30 Pulse 84 98 Resp 12 B/P (MAP) 118/79 (92) 117/70 (86) Pulse Ox 99 98 O2 Delivery Room Air 12/11/20 12/12/20 12/12/20 12/12/20 23:00 01:38 02:08 03:00 Temp 99.3 99.1 99.3 99.1 Pulse 76 76 Resp 12 20 14 12 B/P (MAP) 114/66 (82) 114/66 (82) Pulse Ox 100 100 100 O2 Delivery Room Air Room Air Room Air O2 Flow Rate 35.0 Intake and Output 12/11/20 12/11/20 12/12/20 15:00 23:00 07:00 Intake Total 200 ml 975 ml Output Total 100 ml 1205 ml 400 ml Balance 100 ml -230 ml -400 ml Justicifation of Admission Dx: Justifications for Admission: Justification of Admission Dx: Yes CHF: Sev. Electrolyte Abnormal HANNAH WEBER MD Dec 12, 2020 09:23
--- NOTE | 2020-12-12 10:27 | PDOC ---
REI PERSAUD PROGRAM ASSOCIATE 12/12/20 1027: CARDIO Progress Notes Date and Time Date of Service 12/12/20 Time of Evaluation 1020 Subjective Subjective: No Chest Pain, No shortness of breath, No Palpitations Vitals Vitals Vital Signs Date Time Temp Pulse Resp B/P (MAP) Pulse Ox O2 Delivery O2 Flow Rate FiO2 12/12/20 08:00 Room Air 12/12/20 07:00 85 22 133/93 (106) 95 12/12/20 03:00 99.1 99.1 12/12/20 01:38 35.0 Weight Weight [ ] Input and Output Intake and Output Intake and Output 12/12/20 07:00 Intake Total 1175 ml Output Total 1705 ml Balance -530 ml IV Total 1175 ml Output Urine Total 1555 ml Emesis 150 ml Laboratory Labs Laboratory Tests Test 12/11/20 14:00 12/12/20 06:40 Urine Collection Type Unknown Urine Color Yellow Urine Clarity Clear Urine pH 6.0 (<5.0-8.0) Urine Specific [place] 1.015 (1.000-1.030) Urine Protein Negative mg/dL (NEG-TRACE) Urine Glucose (UA) Negative mg/dL (NEG) Urine Ketones (Stick) Negative mg/dL (NEG) Urine Blood Moderate (NEG) Urine Nitrite Negative (NEG) Urine Bilirubin Negative (NEG) Urine Urobilinogen Dipstick 0.2 mg/dL (0.2 mg/dL) Urine Leukocyte Esterase Negative (NEG) Urine RBC 3-5 /HPF (0-2) Urine WBC Occ /HPF (0-4) Urine Squamous Epithelial Cells Many /LPF Urine Bacteria Few /HPF (0-FEW) Urine Hyaline Casts Occasional /HPF Urine Mucus Mod /LPF Urine Yeast Present /HPF White Blood Count 15.3 x10^3/uL (4.0-11.0) Red Blood Count 3.12 x10^6/uL (3.50-5.40) Hemoglobin 10.2 g/dL (12.0-15.5) Hematocrit 30.6 % (36.0-47.0) Mean Corpuscular Volume 98 fL (79-100) Mean Corpuscular Hemoglobin 33 pg (25-35) Mean Corpuscular Hemoglobin Concent 33 g/dL (31-37) Red Cell Distribution Width 19.3 % (11.5-14.5) Platelet Count 231 x10^3/uL (140-400) Neutrophils (%) (Auto) 58 % (31-73) Lymphocytes (%) (Auto) 32 % (24-48) Monocytes (%) (Auto) 9 % (0-9) Eosinophils (%) (Auto) 0 % (0-3) Basophils (%) (Auto) 0 % (0-3) Neutrophils # (Auto) 8.9 x10^3/uL (1.8-7.7) Lymphocytes # (Auto) 4.9 x10^3/uL (1.0-4.8) Monocytes # (Auto) 1.4 x10^3/uL (0.0-1.1) Eosinophils # (Auto) 0.1 x10^3/uL (0.0-0.7) Basophils # (Auto) 0.0 x10^3/uL (0.0-0.2) Sodium Level 144 mmol/L (136-145) Potassium Level 2.4 mmol/L (3.5-5.1) Chloride Level 107 mmol/L (98-107) Carbon Dioxide Level 30 mmol/L (21-32) Anion Gap 7 (6-14) Blood Urea Nitrogen 8 mg/dL (7-20) Creatinine 0.7 mg/dL (0.6-1.0) Estimated GFR (Cockcroft-Gault) 94.7 BUN/Creatinine Ratio 11 (6-20) Glucose Level 105 mg/dL (70-99) Calcium Level 8.1 mg/dL (8.5-10.1) Phosphorus Level 2.7 mg/dL (2.6-4.7) Magnesium Level 2.0 mg/dL (1.8-2.4) Total Bilirubin 0.4 mg/dL (0.2-1.0) Aspartate Amino Transf (AST/SGOT) 37 U/L (15-37) Alanine Aminotransferase (ALT/SGPT) 22 U/L (14-59) Alkaline Phosphatase 55 U/L (46-116) Total Protein 5.2 g/dL (6.4-8.2) Albumin 2.2 g/dL (3.4-5.0) Albumin/Globulin Ratio 0.7 (1.0-1.7) Microbiology Micro Microbiology 12/08/20 Blood Culture - Preliminary, Resulted NO GROWTH AFTER 3 DAYS 12/07/20 Urine Culture - Final, Complete Physical Exam HEENT: Neck Supple W Full Motion Chest: Symmetric LUNGS: Clear to Auscultation Heart: S1S2, RRR, no murmurs Abdomen: Soft N/T Extremities: No Edema Neurology: alert, oriented, follow commands Assessment Assessment 1. Nausea/vomiting, gastroparesis; as per gastroenterology team. 2. VFIB arrest in the setting of significant electrolyte abnormalities and QT prolongation. QTC initially 506. Approximately 10 mins prior to ROSC. No further arrhythmias noted on tele. 2D echo showed normal LV systolic function without any wall motion abnormalities. The option of cardiac catheterization, to r/o ischemia etiology, was discussed with patient and father but they would like to defer for now. 3. QT prolongation; remains prolonged. EKG 12/10 with QTc 537. Avoid QT prolonging meds. Use antiemetics very sparingly 4. TIA: Improved 5. Severe hypokalemia, hypomagnesemia; replaced. Mg better, but hypokalemia persists. Monitor electrolytes and replaced as warrant 6. Acute respiratory failure secondary to cardiac arrest; s/p extubation. 7. Anxiety, depression Justicifation of Admission Dx: Justifications for Admission: Justification of Admission Dx: Yes CHF: Sev. Electrolyte Abnormal TANIA HUMPHREY MD 12/12/20 1628: CARDIO Progress Notes Assessment Assessment Patient seen and evaluated. I agree with our nurse practitioners assessment and plan. Nausea/vomiting, gastroparesis; as per gastroenterology team. VFIB arrest in the setting of significant electrolyte abnormalities and QT prolongation. QTC initially 506. Approximately 10 mins prior to ROSC. No further arrhythmias noted on tele. 2D echo showed normal LV systolic function without any wall motion abnormalities. The option of cardiac catheterization, to r/o ischemia etiology, was discussed with patient and father but they would like to defer for now. QT prolongation; remains prolonged. EKG 12/10 with QTc 537. Avoid QT prolonging meds. Use antiemetics sparingly TIA: Improved. Monitoring lab. Severe hypokalemia, hypomagnesemia; replaced. Mg better, but hypokalemia persists. Monitor electrolytes and replaced as warrant Acute respiratory failure secondary to cardiac arrest; s/p extubation. REI PERSAUD APRN Dec 12, 2020 10:27 TANIA HUMPHREY MD Dec 12, 2020 16:28
[2020-12-12 11:05] VITALS: BP 148/90
[2020-12-12] MEDS: HEPARIN for SUB-Q USE 5,000 UNIT/ML VIAL. SQ SCH ×2 (11:56→21:11)
--- NOTE | 2020-12-12 12:08 | PDOC ---
[facility] PROGRESS NOTE Date of Service DOS: DATE: 12/12/20 TIME: 12:07 Chief Complaint Chief Complaint Nausea and vomiting History of Present Illness History of Present Illness 12/12/20 Patient seen and examined in the ICU Chart reviewed Discussed with RN Has right sided triple lumen in place Currently on TPN with hopes to advance diet Hendrickson to BSD in place 12/11/20 Hypokalemia -replace IV loss likely due to 4 days of persistent vomiting, consider other causes SUCH as adrenal insufficiency DC iv cefipime Vomiting persists - consider cyclic vomiting vs gastroparesis No acute process identified ni the abdomen or pelvis per CT on 12/10 Start TPN 12/10/20 Hypokalemia - replace IV loss likely due to 4 days of persistent vomiting, however need to consider other causes such as adrenal insufficiency DC iv cefipime HYDROCORTISONE IV TO 80 MG Q AM 0800, 40 MG AT 1600 DAILY Off vent Awake CXR stable Afebrile Calcium 7.2 today Consult ID and Nephrology Try promethazine supp 25mg prn q 6 hours 12/09/20 Hypokalemia - replace IV loss likely due to 4 days of persistent vomiting, however need to consider other causes such as adrenal insufficiency, continue iv cefipime Off vent Awake CXR stable 12/07/20 Ms Lafleur is a 35yo F w/ PMHx Anxiety, Depression, GERD, barrets, High Cholesterol, gastroparesis, OA bilateral ankles, smoker who presented to the ED c/o intractable nausea and vomiting that progressed over the past 3 days to the point she was unable to hold down liquids or her reglan. She reported to ED she had more than 5 bouts of emesis per day. Labs significant for WBC 15.1, Hb 14.9, platelets 338, NA 138, K2.5, magnesium 1.6, BUN 5, CR 1, glucose 141, bilirubin 1.1, AST 67, lipase 57. She was given a bolus of lactated Ringer's and IV Reglan. No significant improvement and was given 5 mg IV Haldol. EKG was sinus tachycardia 153 bpm, prolonged QRS at 128, prolonged QTC at 506, right axis deviation, no STEMI CODE BLUE was called around [address] With torsades which converted to ventricular fibrillation. Patient was given IV magnesium and two 200 J shocks with ROSC. Patient was intubated during cardiac arrest and started on propofol and potassium GTT. She was not completely sedated on propofol and Versed was added. Patient seen by myself sedated on ventilator in ED. Chest radiograph with ET tube and OGT in appropriate position. Admitted ICU for further care. Vitals/I&O Vitals/I&O: Vital Signs Date Time Temp Pulse Resp B/P (MAP) Pulse Ox O2 Delivery O2 Flow Rate FiO2 12/12/20 11:05 98.3 74 20 148/90 (109) 96 Room Air 98.3 12/12/20 01:38 35.0 I & O 12/11/20 12/11/20 12/12/20 15:00 23:00 07:00 Intake Total 200 ml 975 ml Output Total 100 ml 1205 ml 400 ml Balance 100 ml -230 ml -400 ml Physical Exam Physical Exam: GENERAL: Sleepy but arousable in no acute distress, ORIENTED, HEENT: Normocephalic, atraumatic NECK: Supple, full range of motion. No lymphadenopathy. LUNGS: Decreased breath sound at bases HEART: S1, S2, no murmurs. ABDOMEN: Soft, nontender, nondistended. GENITOURINARY: Hendrickson in place. EXTREMITIES: No edema, no cyanosis. DERMATOLOGIC: Warm, dry. No generalized rash. Multiple tattoos. NEUROLOGIC: Somnolent but arousable moves all 4 extremities CN 2-12 GROSSLY INTACT LINES: Right art line removed PIV looks clean. General: Alert, Oriented X3, Cooperative, No acute distress Heart: Regular rate, Normal S1, Normal S2, No murmurs, Other Lungs: Clear Abdomen: Normal bowel sounds, Soft, No tenderness Extremities: No clubbing, No cyanosis Skin: No breakdown Labs Labs: Laboratory Tests Test 12/11/20 14:00 12/12/20 06:40 Urine Collection Type Unknown Urine Color Yellow Urine Clarity Clear Urine pH 6.0 (<5.0-8.0) Urine Specific [place] 1.015 (1.000-1.030) Urine Protein Negative mg/dL (NEG-TRACE) Urine Glucose (UA) Negative mg/dL (NEG) Urine Ketones (Stick) Negative mg/dL (NEG) Urine Blood Moderate (NEG) Urine Nitrite Negative (NEG) Urine Bilirubin Negative (NEG) Urine Urobilinogen Dipstick 0.2 mg/dL (0.2 mg/dL) Urine Leukocyte Esterase Negative (NEG) Urine RBC 3-5 /HPF (0-2) Urine WBC Occ /HPF (0-4) Urine Squamous Epithelial Cells Many /LPF Urine Bacteria Few /HPF (0-FEW) Urine Hyaline Casts Occasional /HPF Urine Mucus Mod /LPF Urine Yeast Present /HPF White Blood Count 15.3 x10^3/uL (4.0-11.0) Red Blood Count 3.12 x10^6/uL (3.50-5.40) Hemoglobin 10.2 g/dL (12.0-15.5) Hematocrit 30.6 % (36.0-47.0) Mean Corpuscular Volume 98 fL (79-100) Mean Corpuscular Hemoglobin 33 pg (25-35) Mean Corpuscular Hemoglobin Concent 33 g/dL (31-37) Red Cell Distribution Width 19.3 % (11.5-14.5) Platelet Count 231 x10^3/uL (140-400) Neutrophils (%) (Auto) 58 % (31-73) Lymphocytes (%) (Auto) 32 % (24-48) Monocytes (%) (Auto) 9 % (0-9) Eosinophils (%) (Auto) 0 % (0-3) Basophils (%) (Auto) 0 % (0-3) Neutrophils # (Auto) 8.9 x10^3/uL (1.8-7.7) Lymphocytes # (Auto) 4.9 x10^3/uL (1.0-4.8) Monocytes # (Auto) 1.4 x10^3/uL (0.0-1.1) Eosinophils # (Auto) 0.1 x10^3/uL (0.0-0.7) Basophils # (Auto) 0.0 x10^3/uL (0.0-0.2) Sodium Level 144 mmol/L (136-145) Potassium Level 2.4 mmol/L (3.5-5.1) Chloride Level 107 mmol/L (98-107) Carbon Dioxide Level 30 mmol/L (21-32) Anion Gap 7 (6-14) Blood Urea Nitrogen 8 mg/dL (7-20) Creatinine 0.7 mg/dL (0.6-1.0) Estimated GFR (Cockcroft-Gault) 94.7 BUN/Creatinine Ratio 11 (6-20) Glucose Level 105 mg/dL (70-99) Calcium Level 8.1 mg/dL (8.5-10.1) Phosphorus Level 2.7 mg/dL (2.6-4.7) Magnesium Level 2.0 mg/dL (1.8-2.4) Total Bilirubin 0.4 mg/dL (0.2-1.0) Aspartate Amino Transf (AST/SGOT) 37 U/L (15-37) Alanine Aminotransferase (ALT/SGPT) 22 U/L (14-59) Alkaline Phosphatase 55 U/L (46-116) Total Protein 5.2 g/dL (6.4-8.2) Albumin 2.2 g/dL (3.4-5.0) Albumin/Globulin Ratio 0.7 (1.0-1.7) Assessment and Plan Assessmemt and Plan Problems Medical Problems: (1) Cardiac arrest Status: Acute (2) Hypokalemia Status: Acute (3) Hypomagnesemia Status: Acute (4) Nausea and vomiting Status: Acute (5) Prolonged QT interval Status: Acute Assessment Ventricular fibrillation Cardiac arrest - likely due to torsades with prolonged QT worsened by hypokalemia, hypomagnesemia as well as Reglan and Haldol administration. 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 Hypomagnesemia - replaced due to torsades Hypokalemia Gastroparesis with nausea and vomiting Plan ICU Monitoring Trend labs Continue PT/OT Continue home medications DVT prophylaxis Advance diet as tolerated Full code Goals of Care: Advance Care Planning: Total time spent [id number] with patient greater than 16 minutes in discussion with goals of care, comfort care, end-of-life care, pain management, code status Comment Review of Relevant I have reviewed the following items josué (where applicable) has been applied. Medications: Current Medications Medications (Trade) Dose Ordered Sig/Kwaku Route PRN Reason Start Time Stop Time Status Last Admin Dose Admin Sodium Acetate 50 meq/Potassium Chloride 50 meq/ Potassium Phosphate 13.6 mmol/Magnesium Sulfate 10 meq/ Calcium Gluconate 10 meq/ Multivitamins 5 ml/Zinc/Copper/ Manganese/ Selenium 1 ml/ Total Parenteral Nutrition/Amino Acids/Dextrose/ Fat Emulsion Intravenous 1,512 ml @ 63 mls/hr TPN CONT IV 12/11/20 22:00 12/12/20 21:59 12/11/20 22:48 Hydrocortisone Sodium Succinate (Solu-CORTEF) 80 mg DAILY08 IVP 12/12/20 08:00 12/12/20 08:01 Hydrocortisone Sodium Succinate (Solu-CORTEF) 40 mg DAILY16 IVP 12/11/20 16:00 12/11/20 16:12 Nicardipine HCl 50 mg/Sodium Chloride 250 ml @ 25 mls/hr CONT PRN IV SEE I/O RECORD 12/11/20 19:15 12/11/20 19:44 Potassium Chloride/Water 100 ml @ 100 mls/hr Q1HR IV 12/12/20 08:00 12/12/20 13:59 12/12/20 11:57 Justifications for Admission Other Justification NAYANA NY III DO Dec 12, 2020 12:08
[2020-12-12 12:10] LABS: IMMUNOGLOBULIN A 391 mg/dL (87-352); IMMUNOGLOBULIN G 855 mg/dL (586-1602); IMMUNOGLOBULIN M 40 mg/dL (26-217)
--- NOTE | 2020-12-12 13:14 | PDOC ---
Date of Service: DATE: 12/12/20 TIME: 13:10 Subjective: Subjective: Awake, tolerating diet, wants to go home soon. Was taking Reglan daily prior to admission - no gastroparesis flares in awhile. Did not tolerate e-mycin in past. Objective: Vital Signs: Vital Signs Date Time Temp Pulse Resp B/P (MAP) Pulse Ox O2 Delivery O2 Flow Rate FiO2 12/12/20 11:05 98.3 74 20 148/90 (109) 96 Room Air 98.3 12/12/20 01:38 35.0 Labs: Laboratory Tests Test 12/11/20 14:00 12/12/20 06:40 Urine Collection Type Unknown Urine Color Yellow Urine Clarity Clear Urine pH 6.0 Urine Specific [place] 1.015 Urine Protein Negative mg/dL Urine Glucose (UA) Negative mg/dL Urine Ketones (Stick) Negative mg/dL Urine Blood Moderate Urine Nitrite Negative Urine Bilirubin Negative Urine Urobilinogen Dipstick 0.2 mg/dL Urine Leukocyte Esterase Negative Urine RBC 3-5 /HPF Urine WBC Occ /HPF Urine Squamous Epithelial Cells Many /LPF Urine Bacteria Few /HPF Urine Hyaline Casts Occasional /HPF Urine Mucus Mod /LPF Urine Yeast Present /HPF White Blood Count 15.3 x10^3/uL Red Blood Count 3.12 x10^6/uL Hemoglobin 10.2 g/dL Hematocrit 30.6 % Mean Corpuscular Volume 98 fL Mean Corpuscular Hemoglobin 33 pg Mean Corpuscular Hemoglobin Concent 33 g/dL Red Cell Distribution Width 19.3 % Platelet Count 231 x10^3/uL Neutrophils (%) (Auto) 58 % Lymphocytes (%) (Auto) 32 % Monocytes (%) (Auto) 9 % Eosinophils (%) (Auto) 0 % Basophils (%) (Auto) 0 % Neutrophils # (Auto) 8.9 x10^3/uL Lymphocytes # (Auto) 4.9 x10^3/uL Monocytes # (Auto) 1.4 x10^3/uL Eosinophils # (Auto) 0.1 x10^3/uL Basophils # (Auto) 0.0 x10^3/uL Sodium Level 144 mmol/L Potassium Level 2.4 mmol/L Chloride Level 107 mmol/L Carbon Dioxide Level 30 mmol/L Anion Gap 7 Blood Urea Nitrogen 8 mg/dL Creatinine 0.7 mg/dL Estimated GFR (Cockcroft-Gault) 94.7 BUN/Creatinine Ratio 11 Glucose Level 105 mg/dL Calcium Level 8.1 mg/dL Phosphorus Level 2.7 mg/dL Magnesium Level 2.0 mg/dL Total Bilirubin 0.4 mg/dL Aspartate Amino Transf (AST/SGOT) 37 U/L Alanine Aminotransferase (ALT/SGPT) 22 U/L Alkaline Phosphatase 55 U/L Total Protein 5.2 g/dL Albumin 2.2 g/dL Albumin/Globulin Ratio 0.7 Imaging: [facility] COLLECTOR Bedside Swallow Eval: Oropharyngeal swallow WFL. No s/s aspiration or any dysphagia w/ multiple trials across consistencies. Anticipate safe and efficient PO intake to meet nutrition/hydration needs. See full BSE report in Interventions for details. Recommendations: Initiate regular diet w/ thin/regular liquids. No add'l [facility] COLLECTOR f/u indicated. Pls reconsult if needs change. Abv d/w TIA Taylor. PE: GEN: NAD LUNGS: CTAB HEART: RRR ABD: NABS, S/ND/NT NEURO/PSYCH: A & O 3 A/P: S/p arrest - now extubated Hypokalemia - chronic H/o GERD, gastroparesis, C Diff, hepatic steatosis -- On Reglan prior to admission - not a good option long-term Intolerant to e-mycin. Will review w/ Dr. Xavier. Justicifation of Admission Dx: Justifications for Admission: Justification of Admission Dx: Yes CHF: Sev. Electrolyte Abnormal ARUN MILNER Dec 12, 2020 13:14
--- NOTE | 2020-12-12 15:16 | NUR ---
Per pt request, pt taken via wheelchair up to 4N to see coworkers. Dad informed of this trip and agreed this would do her good. Pt tolerated well resting in bed after trip.
[2020-12-12 15:34] VITALS: BP 170/110
--- NOTE | 2020-12-12 16:18 | NUR ---
SS following for discharge planning. SS reviewed pt chart and discussed with pt RN. Pt is from home and is currently on room air. COVID19 negative. Pt on TPN. Pt passed swallow evaluation. PT/OT recommended acute rehabilitation. Pt wanting to return to home. SS will continue to follow for discharge planning.
[2020-12-12] MEDS ORDERED: HYDROCORTISONE SOD SUCC/PF 100 MG/2 ML VIAL. ONE (17:56)
[2020-12-12] MEDS ORDERED: CALCIUM CARBONATE 500 MG TAB.CHEW ONE (17:56)
[2020-12-12] MEDS: HYDROCORTISONE SOD SUCC/PF 100 MG/2 ML VIAL. IVP SCH (18:11)
[2020-12-12 20:00] VITALS: BP 145/93
[2020-12-12] MEDS ORDERED: fentaNYL PF VIAL 100 MCG/2 ML VIAL ONE (21:07)
[2020-12-12] MEDS ORDERED: HEPARIN for SUB-Q USE 5,000 UNIT/ML VIAL. SQ ONE (21:08)
[2020-12-12] MEDS ORDERED: HEPARIN for IV BOLUS 10,000 UNIT/10 ML VIAL. ONE (21:08)
[2020-12-12 23:00] VITALS: BP 143/93
[2020-12-13] MEDS ORDERED: PROCHLORPERAZINE 10 MG/2 ML VIAL. ONE (00:24)
[2020-12-13 03:00] VITALS: BP 148/102
[2020-12-13] MEDS ORDERED: ELECTROLYTE (NON-ICU) PROTOCOL. MC PRN (03:30)
--- NOTE | 2020-12-13 06:11 | NUR ---
Patient stated that she had a necklace with a cross and her mother's ring on it that she did not come up with when verifying valuables. Rylan messaged her father earlier regarding the ring. Patient's father just messaged back stating that he had the necklace with cross and ring on it.
[2020-12-13 06:29] LABS: ALBUMIN 2.3 g/dL (3.4-5.0); CALCIUM 7.9 mg/dL (8.5-10.1); CREATININE 0.6 mg/dL (0.6-1.0); GFR 113.1; PHOSPHORUS 3.2 mg/dL (2.6-4.7); POTASSIUM 3.4 mmol/L (3.5-5.1)
[2020-12-13 07:00] VITALS: BP 154/105
[2020-12-13] MEDS ORDERED: IBUPROFEN 200 MG TABLET. PO PRN (07:00)
[2020-12-13] MEDS ORDERED: MORPHINE SULFATE 2 MG/ML VIAL. IV PRN (07:30)
[2020-12-13] MEDS ORDERED: PANTOPRAZOLE 40 MG TABLET.DR. PO SCH (07:30)
--- NOTE | 2020-12-13 08:01 | PDOC ---
Infectious Disease Note Subjective: Subjective Patient alert awake Nausea and vomiting have resolved No abdominal pain Continues to have chest pain whenever she has some cough Denies fever, nausea, vomiting, shortness of breath, diarrhea, abdominal pain, rash Otherwise as above Vital Signs: Vital Signs Vital Signs Date Time Temp Pulse Resp B/P (MAP) Pulse Ox O2 Delivery O2 Flow Rate FiO2 12/13/20 07:00 98.1 72 18 154/105 (121) 94 Room Air 98.1 Physical Exam: PHYSICAL EXAM GENERAL: Alert oriented x3 female ambulating in room without difficulty HEENT: Normocephalic, atraumatic NECK: Supple, full range of motion. No lymphadenopathy. LUNGS: Clear bilaterally HEART: S1, S2, no murmurs. ABDOMEN: Soft, nontender, nondistended. GENITOURINARY: Hendrickson removed EXTREMITIES: No edema, no cyanosis. DERMATOLOGIC: Warm, dry. No generalized rash. Multiple tattoos. NEUROLOGIC: Alert oriented x3 grossly nonfocal LINES: Right IJ central line Medications: Inpatient Meds: Medications reviewed. Labs: Lab Laboratory Tests Test 12/12/20 20:05 12/13/20 06:04 Potassium Level 3.7 mmol/L (3.5-5.1) 3.4 mmol/L (3.5-5.1) Sodium Level 142 mmol/L (136-145) Chloride Level 106 mmol/L (98-107) Carbon Dioxide Level 29 mmol/L (21-32) Anion Gap 7 (6-14) Blood Urea Nitrogen 6 mg/dL (7-20) Creatinine 0.6 mg/dL (0.6-1.0) Estimated GFR (Cockcroft-Gault) 113.1 Glucose Level 78 mg/dL (70-99) Calcium Level 7.9 mg/dL (8.5-10.1) Phosphorus Level 3.2 mg/dL (2.6-4.7) Albumin 2.3 g/dL (3.4-5.0) Objective: Assessment: 1. Acute hypoxic respiratory failure secondary to cardiac arrest. Improved 2. V-Fib ,cardiac arrest, status post CPR. 3. Severe hypokalemia, hypomagnesemia, hypophosphatemia, hypocalcemia. Improving 4. Nausea ,Vomitting, Mild increased bilirubin level. Repeat CT A/P 12/11 noted 5. Pyuria urine cultures negative CT A/P 12/11 6. History of tobacco use. 7. Encephalopathy appears multifactorial, no clinical evidence of meningitis 8. Leukocytosis on hydrocortisone ,also may have a reactive component 9. History of Kong's esophagus, reflux esophagitis, hepatic steatosis, Clostridium difficile colitis. 10. History of left groin abscess with MRSA, Peptostreptococcus beta-lactam is negative. Plan: Plan of Care Monitor off antibiotics DC central line before discharge Maintain aspiration precautions Discussed with CARINE CHERRY MD Dec 13, 2020 08:01
[2020-12-13] MEDS ORDERED: POTASSIUM CHLORIDE 20 MEQ TABLET.ER. PO ONE (09:00)
--- NOTE | 2020-12-13 09:17 | PDOC ---
PULMONARY PROGRESS NOTES DATE: 12/13/20 TIME: 09:17 Subjective Patient mental status improving, no respiratory distress. Vitals Vital Signs Date Time Temp Pulse Resp B/P (MAP) Pulse Ox O2 Delivery O2 Flow Rate FiO2 12/13/20 07:00 98.1 72 18 154/105 (121) 94 Room Air 98.1 General: Alert, No acute distress Lungs: Clear Cardiovascular: S1, S2 Abdomen: Soft Neuro Exam: Alert Extremities: Other (No significant edema) Skin: Warm Labs Laboratory Tests Test 12/11/20 14:00 12/12/20 06:40 12/12/20 20:05 12/13/20 06:04 Urine Collection Type Unknown Urine Color Yellow Urine Clarity Clear Urine pH 6.0 (<5.0-8.0) Urine Specific [place] 1.015 (1.000-1.030) Urine Protein Negative mg/dL (NEG-TRACE) Urine Glucose (UA) Negative mg/dL (NEG) Urine Ketones (Stick) Negative mg/dL (NEG) Urine Blood Moderate (NEG) Urine Nitrite Negative (NEG) Urine Bilirubin Negative (NEG) Urine Urobilinogen Dipstick 0.2 mg/dL (0.2 mg/dL) Urine Leukocyte Esterase Negative (NEG) Urine RBC 3-5 /HPF (0-2) Urine WBC Occ /HPF (0-4) Urine Squamous Epithelial Cells Many /LPF Urine Bacteria Few /HPF (0-FEW) Urine Hyaline Casts Occasional /HPF Urine Mucus Mod /LPF Urine Yeast Present /HPF White Blood Count 15.3 x10^3/uL (4.0-11.0) Red Blood Count 3.12 x10^6/uL (3.50-5.40) Hemoglobin 10.2 g/dL (12.0-15.5) Hematocrit 30.6 % (36.0-47.0) Mean Corpuscular Volume 98 fL (79-100) Mean Corpuscular Hemoglobin 33 pg (25-35) Mean Corpuscular Hemoglobin Concent 33 g/dL (31-37) Red Cell Distribution Width 19.3 % (11.5-14.5) Platelet Count 231 x10^3/uL (140-400) Neutrophils (%) (Auto) 58 % (31-73) Lymphocytes (%) (Auto) 32 % (24-48) Monocytes (%) (Auto) 9 % (0-9) Eosinophils (%) (Auto) 0 % (0-3) Basophils (%) (Auto) 0 % (0-3) Neutrophils # (Auto) 8.9 x10^3/uL (1.8-7.7) Lymphocytes # (Auto) 4.9 x10^3/uL (1.0-4.8) Monocytes # (Auto) 1.4 x10^3/uL (0.0-1.1) Eosinophils # (Auto) 0.1 x10^3/uL (0.0-0.7) Basophils # (Auto) 0.0 x10^3/uL (0.0-0.2) Sodium Level 144 mmol/L (136-145) 142 mmol/L (136-145) Potassium Level 2.4 mmol/L (3.5-5.1) 3.7 mmol/L (3.5-5.1) 3.4 mmol/L (3.5-5.1) Chloride Level 107 mmol/L (98-107) 106 mmol/L (98-107) Carbon Dioxide Level 30 mmol/L (21-32) 29 mmol/L (21-32) Anion Gap 7 (6-14) 7 (6-14) Blood Urea Nitrogen 8 mg/dL (7-20) 6 mg/dL (7-20) Creatinine 0.7 mg/dL (0.6-1.0) 0.6 mg/dL (0.6-1.0) Estimated GFR (Cockcroft-Gault) 94.7 113.1 BUN/Creatinine Ratio 11 (6-20) Glucose Level 105 mg/dL (70-99) 78 mg/dL (70-99) Calcium Level 8.1 mg/dL (8.5-10.1) 7.9 mg/dL (8.5-10.1) Phosphorus Level 2.7 mg/dL (2.6-4.7) 3.2 mg/dL (2.6-4.7) Magnesium Level 2.0 mg/dL (1.8-2.4) Total Bilirubin 0.4 mg/dL (0.2-1.0) Aspartate Amino Transf (AST/SGOT) 37 U/L (15-37) Alanine Aminotransferase (ALT/SGPT) 22 U/L (14-59) Alkaline Phosphatase 55 U/L (46-116) Total Protein 5.2 g/dL (6.4-8.2) Albumin 2.2 g/dL (3.4-5.0) 2.3 g/dL (3.4-5.0) Albumin/Globulin Ratio 0.7 (1.0-1.7) Laboratory Tests Test 12/12/20 20:05 12/13/20 06:04 Potassium Level 3.7 mmol/L (3.5-5.1) 3.4 mmol/L (3.5-5.1) Sodium Level 142 mmol/L (136-145) Chloride Level 106 mmol/L (98-107) Carbon Dioxide Level 29 mmol/L (21-32) Anion Gap 7 (6-14) Blood Urea Nitrogen 6 mg/dL (7-20) Creatinine 0.6 mg/dL (0.6-1.0) Estimated GFR (Cockcroft-Gault) 113.1 Glucose Level 78 mg/dL (70-99) Calcium Level 7.9 mg/dL (8.5-10.1) Phosphorus Level 3.2 mg/dL (2.6-4.7) Albumin 2.3 g/dL (3.4-5.0) Medications Active Scripts Medications Dose Route/Sig Max Daily Dose Days Date Category Vancomycin Hcl 125 Mg Capsule 1 Cap PO QID 10 06/12/20 Rx Fenofibrate (Fenofibrate,Micronized) 134 Mg Capsule 134 Mg PO DAILY 05/25/20 Reported Potassium Chloride (Potassium Chloride) 20 Meq Tablet.er 20 Meq PO BIDAC 30 05/07/20 Rx Reglan (Metoclopramide Hcl) 10 Mg Tablet 10 Mg PO TID PRN 03/28/20 Rx Compazine (Prochlorperazine Maleate) 10 Mg Tablet 1 Tab PO Q6HRS 03/26/20 Rx Ondansetron Odt (Ondansetron) 4 Mg Tab.rapdis 1 Tab PO PRN Q6-8HRS 03/24/20 Rx Nexium Capsule (Esomeprazole Magnesium) 40 Mg Capsule.dr 1 Cap PO DAILY 03/20/20 Reported Amitriptyline Hcl 10 Mg Tablet 1 Tab PO QHS 90 05/27/19 Rx Celexa (Citalopram Hydrobromide) 20 Mg Tablet 1 Tab PO QHS 05/27/19 Rx Comments cxr 12/09 stable Impression . IMPRESSION: 1. Acute respiratory failure secondary to cardiac arrest. on RA now 2. Ventricular fibrillation/cardiac arrest/in-house 3. Severe hypokalemia, corrected 4. Severe hypophosphatemia, corrected 5. Mildly increased bilirubin 6. History of hepatic steatosis. 7. History of tobacco use. 8. Low Mg 9. SARS-CoV-2 negative 10. Leukocytosis suspect reactive Echo report Critical Value: No <Conclusion> The left ventricular systolic function is normal. The Ejection Fraction is 55%. There is normal LV segmental wall motion. Trace mitral regurgitation. Trace tricuspid regurgitation with an estimated PAP of 22 mmHg. There is no evidence of significant pericardial effusion. Plan . Updated 12/12 Respiratory status compensated, will see as needed Okay to transfer out of the ICU Updated 12/11 0n RA start protonix for gerd may help n/v cardiology recommended cardiac cath she declined electrolytes corrected hep sq for dvt prophylaxis Discussed with RN Updated 12/10 0n RA cardiology recommended cardiac cath she declined electrolytes corrected hep sq for dvt prophylaxis Discussed with VICTORINO SOSA MD Dec 13, 2020 09:17
[2020-12-13] MEDS: CALCIUM CARB/VIT D3 500/200 TABLET. PO SCH (09:41)
--- NOTE | 2020-12-13 10:34 | PDOC ---
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 Knows location, not sure of precise date, names, repeats, comprehends with fluent speech PERRL. EOMI. CN: no focal findings. Muscle tone: normal. Muscle strength:/5 DTR: 1+ Plantar reflex: Flexor Gait: not examined in bed. Sensory exam: no abnormal findings. No cerebellar signs elicited. Review of Relevant I have reviewed the following items josué (where applicable) has been applied. Labs Laboratory Tests Test 12/11/20 14:00 12/12/20 06:40 12/12/20 20:05 12/13/20 06:04 Urine Collection Type Unknown Urine Color Yellow Urine Clarity Clear Urine pH 6.0 (<5.0-8.0) Urine Specific [place] 1.015 (1.000-1.030) Urine Protein Negative mg/dL (NEG-TRACE) Urine Glucose (UA) Negative mg/dL (NEG) Urine Ketones (Stick) Negative mg/dL (NEG) Urine Blood Moderate (NEG) Urine Nitrite Negative (NEG) Urine Bilirubin Negative (NEG) Urine Urobilinogen Dipstick 0.2 mg/dL (0.2 mg/dL) Urine Leukocyte Esterase Negative (NEG) Urine RBC 3-5 /HPF (0-2) Urine WBC Occ /HPF (0-4) Urine Squamous Epithelial Cells Many /LPF Urine Bacteria Few /HPF (0-FEW) Urine Hyaline Casts Occasional /HPF Urine Mucus Mod /LPF Urine Yeast Present /HPF White Blood Count 15.3 x10^3/uL (4.0-11.0) Red Blood Count 3.12 x10^6/uL (3.50-5.40) Hemoglobin 10.2 g/dL (12.0-15.5) Hematocrit 30.6 % (36.0-47.0) Mean Corpuscular Volume 98 fL (79-100) Mean Corpuscular Hemoglobin 33 pg (25-35) Mean Corpuscular Hemoglobin Concent 33 g/dL (31-37) Red Cell Distribution Width 19.3 % (11.5-14.5) Platelet Count 231 x10^3/uL (140-400) Neutrophils (%) (Auto) 58 % (31-73) Lymphocytes (%) (Auto) 32 % (24-48) Monocytes (%) (Auto) 9 % (0-9) Eosinophils (%) (Auto) 0 % (0-3) Basophils (%) (Auto) 0 % (0-3) Neutrophils # (Auto) 8.9 x10^3/uL (1.8-7.7) Lymphocytes # (Auto) 4.9 x10^3/uL (1.0-4.8) Monocytes # (Auto) 1.4 x10^3/uL (0.0-1.1) Eosinophils # (Auto) 0.1 x10^3/uL (0.0-0.7) Basophils # (Auto) 0.0 x10^3/uL (0.0-0.2) Sodium Level 144 mmol/L (136-145) 142 mmol/L (136-145) Potassium Level 2.4 mmol/L (3.5-5.1) 3.7 mmol/L (3.5-5.1) 3.4 mmol/L (3.5-5.1) Chloride Level 107 mmol/L (98-107) 106 mmol/L (98-107) Carbon Dioxide Level 30 mmol/L (21-32) 29 mmol/L (21-32) Anion Gap 7 (6-14) 7 (6-14) Blood Urea Nitrogen 8 mg/dL (7-20) 6 mg/dL (7-20) Creatinine 0.7 mg/dL (0.6-1.0) 0.6 mg/dL (0.6-1.0) Estimated GFR (Cockcroft-Gault) 94.7 113.1 BUN/Creatinine Ratio 11 (6-20) Glucose Level 105 mg/dL (70-99) 78 mg/dL (70-99) Calcium Level 8.1 mg/dL (8.5-10.1) 7.9 mg/dL (8.5-10.1) Phosphorus Level 2.7 mg/dL (2.6-4.7) 3.2 mg/dL (2.6-4.7) Magnesium Level 2.0 mg/dL (1.8-2.4) Total Bilirubin 0.4 mg/dL (0.2-1.0) Aspartate Amino Transf (AST/SGOT) 37 U/L (15-37) Alanine Aminotransferase (ALT/SGPT) 22 U/L (14-59) Alkaline Phosphatase 55 U/L (46-116) Total Protein 5.2 g/dL (6.4-8.2) Albumin 2.2 g/dL (3.4-5.0) 2.3 g/dL (3.4-5.0) Albumin/Globulin Ratio 0.7 (1.0-1.7) Laboratory Tests Test 12/12/20 20:05 12/13/20 06:04 Potassium Level 3.7 mmol/L (3.5-5.1) 3.4 mmol/L (3.5-5.1) Sodium Level 142 mmol/L (136-145) Chloride Level 106 mmol/L (98-107) Carbon Dioxide Level 29 mmol/L (21-32) Anion Gap 7 (6-14) Blood Urea Nitrogen 6 mg/dL (7-20) Creatinine 0.6 mg/dL (0.6-1.0) Estimated GFR (Cockcroft-Gault) 113.1 Glucose Level 78 mg/dL (70-99) Calcium Level 7.9 mg/dL (8.5-10.1) Phosphorus Level 3.2 mg/dL (2.6-4.7) Albumin 2.3 g/dL (3.4-5.0) Microbiology 12/08/20 Blood Culture - Preliminary, Resulted NO GROWTH AFTER 4 DAYS 12/07/20 Urine Culture - Final, Complete Medications Current Medications Ringer's Solution 500 ml @ 500 mls/hr 1X ONCE IV ; Start 4/14/21 at 05:00; Stop 12/07/20 at 05:59; Status DC Ringer's Solution 500 ml @ 500 mls/hr 1X ONCE IV ; Start 12/07/20 at 05:00; Stop 12/07/20 at 05:59; Status DC Metoclopramide HCl (Reglan Vial) 10 mg 1X ONCE IVP ; Start 12/07/20 at 05:30; Stop 12/07/20 at 05:05; Status DC Ringer's Solution 500 ml @ 500 mls/hr 1X ONCE IV ; Start 12/07/20 at 05:30; Stop 12/07/20 at 06:29; Status DC Haloperidol Lactate (Haldol Inj) 5 mg STK-MED ONCE .ROUTE ; Start 12/07/20 at 05:05; Stop 12/07/20 at 05:05; Status DC Haloperidol Lactate (Haldol Inj) 5 mg 1X ONCE IVP Last administered on 12/07/20at 05:14; Start 12/07/20 at 05:30; Stop 12/07/20 at 05:31; Status DC Diphenhydramine HCl (Benadryl) 50 mg 1X ONCE IVP Last administered on 12/07/20at 05:14; Start 12/07/20 at 05:30; Stop 12/07/20 at 05:31; Status DC Ringer's Solution 500 ml @ 1,000 mls/hr 1X ONCE IV Last administered on 12/07/20at 05:13; Start 12/07/20 at 05:30; Stop 12/07/20 at 05:59; Status DC Propofol 100 ml @ As Directed STK-MED ONCE IV ; Start 12/07/20 at 05:56; Stop 12/07/20 at 05:56; Status DC Potassium Chloride/Sodium Chloride 1,000 ml @ 125 mls/hr Q8H IV Last administered on 12/07/20at 06:30; Start 12/07/20 at 06:30; Stop 12/07/20 at 14:29; Status DC Midazolam HCl (Versed) 5 mg STK-MED ONCE .ROUTE ; Start 12/07/20 at 06:29; Stop 12/07/20 at 06:30; Status DC Fentanyl Citrate 30 ml @ 0 mls/hr CONT PRN IV SEE PROTOCOL; Start 12/07/20 at 07:00; Status Cancel Chlorhexidine Gluconate (Peridex) 15 ml BID MM Last administered on 12/07/20at 09:00; Start 12/07/20 at 09:00; Stop 12/07/20 at 18:44; Status DC Midazolam HCl 100 ml @ 0 mls/hr CONT PRN IV SEE PROTOCOL Last administered on 12/07/20at 20:29; Start 12/07/20 at 07:00; Stop 12/09/20 at 15:37; Status DC Magnesium Sulfate 100 ml @ 25 mls/hr 1X ONCE IV Last administered on 12/07/20at 08:47; Start 12/07/20 at 07:30; Stop 12/07/20 at 11:29; Status DC Famotidine (Pepcid Vial) 20 mg BID IVP ; Start 12/07/20 at 09:00; Stop 12/07/20 at 10:56; Status DC Buspirone HCl (Buspar) 30 mg Q8H NG Last administered on 12/08/20at 16:18; Start 12/07/20 at 08:00; Stop 12/08/20 at 21:06; Status DC Acetaminophen (Tylenol) 650 mg Q4H NG Last administered on 12/08/20at 16:22; Start 12/07/20 at 08:00; Stop 12/08/20 at 22:07; Status DC Glycerin/ Hypromellose/ Polyethylene (Artificial Tears) 1 drop Q6HRS OU Last administered on 12/07/20at 17:25; Start 12/07/20 at 12:00; Stop 12/07/20 at 18:44; Status DC Glycerin/ Hypromellose/ Polyethylene (Artificial Tears) 1 drop PRN Q15MIN PRN OU DRY EYE; Start 12/07/20 at 08:00; Stop 12/10/20 at 21:08; Status DC Heparin Sodium (Porcine) (Heparin Sodium) 5,000 unit BID SQ Last administered on 12/10/20at 20:45; Start 12/07/20 at 09:00; Stop 12/10/20 at 21:08; Status DC Pantoprazole Sodium (PROTONIX VIAL for IV PUSH) 40 mg DAILY IVP Last administered on 12/10/20at 09:27; Start 12/07/20 at 09:00; Stop 12/10/20 at 21:08; Status DC Fentanyl Citrate 30 ml @ 0 mls/hr CONT PRN IV PER PROTOCOL. Last administered on 12/09/20at 04:17; Start 12/07/20 at 08:00; Stop 12/10/20 at 21:08; Status DC Propofol 100 ml @ 0 mls/hr CONT PRN IV PER PROTOCOL. Last administered on 12/09/20at 04:08; Start 12/07/20 at 08:00; Stop 12/10/20 at 21:08; Status DC Midazolam HCl 100 ml @ 0 mls/hr CONT PRN IV PER PROTOCOL; Start 12/07/20 at 08: 00; Status UNV Vecuronium [place] (Norcuron Bolus) 6 mg PRN Q1HR PRN IV SHIVERING Last administered on 12/07/20at 08:47; Start 12/07/20 at 08:00; Stop 12/10/20 at 21:08; Status DC Potassium Chloride/Water 100 ml @ 100 mls/hr Q1H IV Last administered on 12/07/20at 10:49; Start 12/07/20 at 09:00; Stop 12/07/20 at 12:59; Status DC Potassium Chloride/Water 100 ml @ 100 mls/hr Q1H IV ; Start 12/07/20 at 12:00; Stop 12/07/20 at 14:59; Status DC Potassium Phosphate 10 mmol/ Sodium Chloride 103.3333 ml @ 51.667 m... Q2H IV Last administered on 12/07/20at 12:00; Start 12/07/20 at 10:00; Stop 12/07/20 at 13:59; Status DC Potassium Phosphate 10 mmol/ Sodium Chloride 103.3333 ml @ 51.667 m... Q2H IV Last administered on 12/07/20at 13:43; Start 12/07/20 at 12:00; Stop 12/07/20 at 15:59; Status DC Sodium Bicarbonate (Sodium Bicarb Adult 8.4% Syr) 50 meq STK-MED ONCE .ROUTE ; Start 12/07/20 at 12:00; Stop 12/07/20 at 15:47; Status DC Amiodarone HCl (Cordarone) 300 mg STK-MED ONCE .ROUTE ; Start 12/07/20 at 12:00; Stop 12/07/20 at 15:47; Status DC Epinephrine HCl (EPINEPHrine SYRINGE) 3 mg STK-MED ONCE .ROUTE ; Start 12/07/20 at 12:00; Stop 12/07/20 at 15:47; Status DC Midazolam HCl (Versed) 5 mg STK-MED ONCE .ROUTE ; Start 12/07/20 at 12:00; Stop 12/07/20 at 15:47; Status DC Magnesium Sulfate/ Dextrose (Magnesium Sulfate PREMIX 1GM) 1 gm STK-MED ONCE IV ; Start 12/07/20 at 12:00; Stop 12/07/20 at 15:47; Status DC Sodium Chloride 1,000 ml @ 50 mls/hr Q20H IV Last administered on 12/08/20at 13:13; Start 12/07/20 at 17:30; Stop 12/08/20 at 13:53; Status DC Potassium Chloride/Water 100 ml @ 100 mls/hr 1X ONCE IV Last administered on 12/07/20at 23:35; Start 12/07/20 at 23:30; Stop 12/08/20 at 00:29; Status DC Dopamine HCl/ Dextrose 250 ml @ 13.481 mls/ hr CONT PRN IV SEE I/O RECORD; Start 12/08/20 at 06:45; Stop 12/12/20 at 14:52; Status DC Dextrose (Dextrose 50%-Water Syringe) 12.5 gm PRN Q15MIN PRN IV SEE COMMENTS Last administered on 12/08/20at 10:04; Start 12/08/20 at 10:00 Potassium Chloride/Water 100 ml @ 100 mls/hr 1X ONCE IV Last administered on 12/08/20at 14:27; Start 12/08/20 at 13:45; Stop 12/08/20 at 14:44; Status DC Dextrose/Sodium Chloride 1,000 ml @ 75 mls/hr [id number] IV Last administered on 12/08/20at 14:16; Start 12/08/20 at 13:45; Stop 12/08/20 at 18:42; Status DC Norepinephrine Bitartrate 8 mg/ Dextrose 258 ml @ 13.913 mls/ hr CONT PRN IV PER PROTOCOL Last administered on 12/08/20at 15:11; Start 12/08/20 at 15:00; Stop 12/12/20 at 14:52; Status DC Hydrocortisone Sodium Succinate (Solu-CORTEF) 100 mg Q12HR IVP Last administered on 12/11/20at 08:54; Start 12/08/20 at 15:30; Stop 12/11/20 at 13:13; Status DC Potassium Chloride/Dextrose/ Sod Cl 1,000 ml @ 125 mls/hr Q8H IV Last administered on 12/09/20at 04:09; Start 12/08/20 at 19:00; Stop 12/09/20 at 11:13; Status DC Potassium Chloride/Water 100 ml @ 100 mls/hr Q1H IV Last administered on 12/08/20at 20:03; Start 12/08/20 at 19:00; Stop 12/08/20 at 20:59; Status DC Magnesium Sulfate/ Dextrose 100 ml @ 100 mls/hr 1X ONCE IV Last administered on 12/08/20at 18:51; Start 12/08/20 at 19:00; Stop 12/08/20 at 19:59; Status DC Cefepime HCl (Maxipime) 2 gm Q12HR IVP Last administered on 12/11/20at 08:54; Start 12/08/20 at 21:30; Stop 12/11/20 at 10:31; Status DC Calcium Gluconate 1000 mg/Sodium Chloride 110 ml @ 220 mls/hr 1X ONCE IV Last administered on 12/08/20at 23:40; Start 12/08/20 at 22:30; Stop 12/08/20 at 22: 59; Status DC Dexmedetomidine HCl 400 mcg/ Sodium Chloride 100 ml @ 0 mls/hr CONT PRN IV PER PROTOCOL; Start 12/09/20 at 08:45; Stop 12/13/20 at 03:18; Status DC Sodium Chloride 500 ml @ 500 mls/hr 1X PRN PRN IV SEE COMMENTS; Start 12/09/20 at 08:45 Atropine Sulfate (ATROPINE 0.5mg SYRINGE) 0.5 mg PRN Q5MIN PRN IV SEE COMMENTS; Start 12/09/20 at 08:45; Status Cancel Potassium Chloride/Dextrose/ Sod Cl 1,000 ml @ 75 mls/hr [id number] IV ; Start 12/09/20 at 11:15; Stop 12/09/20 at 11:35; Status DC Potassium Chloride/Dextrose/ Sod Cl 1,000 ml @ 75 mls/hr [id number] IV Last administered on 12/11/20at 05:12; Start 12/09/20 at 11:45; Stop 12/11/20 at 08:23; Status DC Calcium Gluconate 1000 mg/Sodium Chloride 110 ml @ 220 mls/hr 1X ONCE IV Last administered on 12/09/20at 14:03; Start 12/09/20 at 14:00; Stop 12/09/20 at 14:29; Status DC Ondansetron HCl (Zofran) 4 mg PRN Q8HRS PRN IVP NAUSEA/VOMITING Last administered on 12/09/20at 13:52; Start 12/09/20 at 13:45; Stop 12/09/20 at 15:37; Status DC Promethazine HCl (Phenergan) 12.5 mg PRN Q6HRS PRN PO NAUSEA/VOMITING; Start 12/09/20 at 15:30; Stop 12/09/20 at 15:37; Status DC Promethazine HCl (Phenergan) 12.5 mg PRN Q6HRS PRN PO NAUSEA/VOMITING; Start 12/09/20 at 16:45; Stop 12/09/20 at 17:07; Status DC Prochlorperazine Edisylate (Compazine) 10 mg PRN Q6HRS PRN IV NAUSEA/VOMITING Last administered on 12/10/20at 18:46; Start 12/09/20 at 17:15; Stop 12/10/20 at 21:08; Status DC Lorazepam (Ativan Inj) 2 mg PRN Q6HRS PRN IVP ANXIETY / AGITATION Last administered on 12/11/20at 18:02; Start 12/09/20 at 19:00; Stop 12/11/20 at 18:02; Status DC Calcium/Vitamin D (Oscal D 500mg/ 200uts) 1 tab BIDWMEALS PO Last administered on 12/13/20at 09:41; Start 12/10/20 at 17:00 Magnesium Sulfate 50 ml @ 25 mls/hr PRN DAILY PRN IV for Mag < 1.7 on am labs; Start 12/10/20 at 13:15 Fentanyl Citrate (Fentanyl 2ml Vial) 50 mcg PRN Q3HRS PRN IVP PAIN Last a dministered on 12/12/20at 21:30; Start 12/10/20 at 21:00 Prochlorperazine Edisylate (Compazine) 10 mg PRN Q4HRS PRN IV NAUSEA/VOMITING Last administered on 12/12/20at 06:41; Start 12/10/20 at 21:00 Heparin Sodium (Porcine) (Heparin Sodium) 5,000 unit BID SQ Last administered on 12/12/20at 21:11; Start 12/11/20 at 09:00 Pantoprazole Sodium (Protonix) 40 mg DAILYAC PO ; Start 12/12/20 at 07:30; Status Cancel Pantoprazole Sodium (Protonix) 40 mg 1X ONCE PO ; Start 12/11/20 at 07:45; Stop 12/11/20 at 07:46; Status Cancel Info (Icu Electrolyte Protocol) 1 ea CONT PRN PRN MC PER PROTOCOL; Start 12/11/20 at 08:30; Stop 12/13/20 at 03:19; Status DC Info (Tpn Per Pharmacy) 1 each PRN DAILY PRN MC SEE COMMENTS Last administered on 12/11/20at 12:01; Start 12/11/20 at 08:30; Stop 12/12/20 at 13:39; Status DC Pantoprazole Sodium (PROTONIX VIAL for IV PUSH) 40 mg DAILYAC IVP Last administered on 12/12/20at 08:01; Start 12/11/20 at 09:00; Stop 12/12/20 at 13:15; Status DC Potassium Chloride/Water 100 ml @ 100 mls/hr Q1H IV Last administered on 12/11/20at 10:00; Start 12/11/20 at 09:00; Stop 12/11/20 at 10:59; Status DC Hydralazine HCl (Apresoline Inj) 10 mg PRN Q4HRS PRN IVP ELEVATED BP, SEE COMMENTS Last administered on 12/11/20at 19:57; Start 12/11/20 at 11:30 Sodium Acetate 50 meq/Potassium Chloride 50 meq/ Potassium Phosphate 13.6 mmol/Magnesium Sulfate 10 meq/ Calcium Gluconate 10 meq/ Multivitamins 5 ml/Zinc/Copper/ Manganese/ Selenium 1 ml/ Total Parenteral Nutrition/Amino Acids/Dextrose/ Fat Emulsion Intravenous 1,512 ml @ 63 mls/hr TPN CONT IV Last administered on 12/11/20at 22:48; Start 12/11/20 at 22:00; Stop 12/12/20 at 21:59; Status DC Hydrocortisone Sodium Succinate (Solu-CORTEF) 80 mg DAILY08 IVP Last administered on 12/12/20at 08:01; Start 12/12/20 at 08:00 Hydrocortisone Sodium Succinate (Solu-CORTEF) 40 mg DAILY16 IVP Last administered on 12/12/20at 18:11; Start 12/11/20 at 16:00 Nicardipine HCl 50 mg/Sodium Chloride 250 ml @ 25 mls/hr CONT PRN IV SEE I/O RECORD Last administered on 12/11/20at 19:44; Start 12/11/20 at 19:15; Stop 12/12/20 at 14:52; Status DC Potassium Chloride/Water 100 ml @ 100 mls/hr Q1HR IV Last administered on 12/12/20at 13:00; Start 12/12/20 at 08:00; Stop 12/12/20 at 13:59; Status DC Pantoprazole Sodium (Protonix) 40 mg DAILYAC PO Last administered on 12/13/20at 09:41; Start 12/13/20 at 07:30 Calcium Carbonate/ Glycine (Tums) 500 mg STK-MED ONCE .ROUTE ; Start 12/12/20 at 17:56; Stop 12/12/20 at 17:56; Status DC Hydrocortisone Sodium Succinate (Solu-CORTEF) 100 mg STK-MED ONCE .ROUTE ; Start 12/12/20 at 17:56; Stop 12/12/20 at 17:56; Status DC Fentanyl Citrate (Fentanyl 2ml Vial) 100 mcg STK-MED ONCE .ROUTE ; Start 12/12/20 at 21:07; Stop 12/12/20 at 21:08; Status DC Lorazepam (Ativan Inj) 2 mg STK-MED ONCE .ROUTE ; Start 12/12/20 at 21:07; Stop 12/12/20 at 21:08; Status DC Heparin Sodium (Porcine) (Heparin Sodium) 10,000 unit STK-MED ONCE .ROUTE ; Start 12/12/20 at 21:08; Stop 12/12/20 at 21:08; Status DC Heparin Sodium (Porcine) (Heparin Sodium) 5,000 unit STK-MED ONCE SQ ; Start 12/12/20 at 21:08; Stop 12/12/20 at 21:08; Status DC Lorazepam (Ativan Inj) 2 mg 1X ONCE IVP Last administered on 12/12/20at 21:25; Start 12/12/20 at 21:30; Stop 12/12/20 at 21:31; Status DC Prochlorperazine Edisylate (Compazine) 10 mg STK-MED ONCE .ROUTE ; Start 12/13/20 at 00:24; Stop 12/13/20 at 00:25; Status DC Info (Non-Icu Electrolyte Protocol) 1 ea CONT PRN PRN MC SEE COMMENTS; Start 12/13/20 at 03:30 Ibuprofen (Motrin) 600 mg PRN Q6HRS PRN PO INFLAMMATION Last administered on 12/13/20at 08:59; Start 12/13/20 at 07:00 Morphine Sulfate (Morphine Sulfate) 2 mg PRN Q2HR PRN IV PAIN; Start 12/13/20 at 07:30 Potassium Chloride (Klor-Con) 40 meq 1X ONCE PO Last administered on 12/13/20at 09:41; Start 12/13/20 at 09:00; Stop 12/13/20 at 09:06; Status DC Active Scripts Active Vancomycin Hcl 125 Mg Capsule 1 Cap PO QID 10 Days Potassium Chloride (Potassium Chloride) 20 Meq Tablet.er 20 Meq PO BIDAC 30 Days Reglan (Metoclopramide Hcl) 10 Mg Tablet 10 Mg PO TID PRN Compazine (Prochlorperazine Maleate) 10 Mg Tablet 1 Tab PO Q6HRS Ondansetron Odt (Ondansetron) 4 Mg Tab.rapdis 1 Tab PO PRN Q6-8HRS Amitriptyline Hcl 10 Mg Tablet 1 Tab PO QHS 90 Days Celexa (Citalopram Hydrobromide) 20 Mg Tablet 1 Tab PO QHS Reported Fenofibrate (Fenofibrate,Micronized) 134 Mg Capsule 134 Mg PO DAILY Nexium Capsule (Esomeprazole Magnesium) 40 Mg Capsule.dr 1 Cap PO DAILY Vitals/I & O Vital Sign - Last 24 Hours 12/12/20 12/12/20 12/12/20 12/12/20 11:05 15:34 20:00 20:00 Temp 98.3 98.0 98.0 98.3 98.0 98.0 Pulse 74 70 75 Resp 20 20 14 B/P (MAP) 148/90 (109) 170/110 (130) 145/93 (110) Pulse Ox 96 95 95 O2 Delivery Room Air Room Air Room Air Room Air 12/12/20 12/12/20 12/12/20 12/13/20 21:30 22:00 23:00 03:00 Temp 98.6 98.1 98.6 98.1 Pulse 84 60 Resp 16 14 14 18 B/P (MAP) 143/93 (110) 148/102 (117) Pulse Ox 96 100 95 95 O2 Delivery Room Air Room Air Room Air Room Air 12/13/20 12/13/20 03:10 07:00 Temp 98.1 98.1 Pulse 72 Resp 18 B/P (MAP) 154/105 (121) Pulse Ox 94 O2 Delivery Room Air Room Air Intake and Output 12/12/20 12/12/20 12/13/20 15:00 23:00 07:00 Intake Total 70 ml 300 ml 340 ml Output Total 375 ml 780 ml Balance -305 ml -480 ml 340 ml Justicifation of Admission Dx: Justifications for Admission: Justification of Admission Dx: Yes CHF: Sev. Electrolyte Abnormal HANNAH WEBER MD Dec 13, 2020 10:34
--- NOTE | 2020-12-13 10:35 | PDOC ---
CARDIO Progress Notes Date and Time Date of Service 12/13/20 Time of Evaluation 1030 Subjective Subjective: No Chest Pain, No shortness of breath, No Palpitations Vitals Vitals Vital Signs Date Time Temp Pulse Resp B/P (MAP) Pulse Ox O2 Delivery O2 Flow Rate FiO2 12/13/20 07:00 98.1 72 18 154/105 (121) 94 Room Air 98.1 Weight Weight [ ] Input and Output Intake and Output Intake and Output 12/13/20 07:00 Intake Total 710 ml Output Total 1155 ml Balance -445 ml Intake Oral 710 ml Output Urine Total 1155 ml # Bowel Movements 2 Laboratory Labs Laboratory Tests Test 12/12/20 20:05 12/13/20 06:04 Potassium Level 3.7 mmol/L (3.5-5.1) 3.4 mmol/L (3.5-5.1) Sodium Level 142 mmol/L (136-145) Chloride Level 106 mmol/L (98-107) Carbon Dioxide Level 29 mmol/L (21-32) Anion Gap 7 (6-14) Blood Urea Nitrogen 6 mg/dL (7-20) Creatinine 0.6 mg/dL (0.6-1.0) Estimated GFR (Cockcroft-Gault) 113.1 Glucose Level 78 mg/dL (70-99) Calcium Level 7.9 mg/dL (8.5-10.1) Phosphorus Level 3.2 mg/dL (2.6-4.7) Albumin 2.3 g/dL (3.4-5.0) Microbiology Micro Microbiology 12/08/20 Blood Culture - Preliminary, Resulted NO GROWTH AFTER 4 DAYS 12/07/20 Urine Culture - Final, Complete Physical Exam HEENT: Neck Supple W Full Motion Chest: Symmetric LUNGS: Clear to Auscultation Heart: S1S2, RRR, no murmurs Abdomen: Soft N/T Extremities: No Edema Neurology: alert, oriented, follow commands Assessment Assessment 1. Nausea/vomiting, gastroparesis; as per gastroenterology team. 2. VFIB arrest in the setting of significant electrolyte abnormalities and QT prolongation. QTC initially 506. Approximately 10 mins prior to ROSC. No further arrhythmias noted on tele. 2D echo showed normal LV systolic function without any wall motion abnormalities. The option of cardiac catheterization, to r/o ischemia etiology, was discussed with patient and father but they would like to defer for now. 3. QT prolongation; remains prolonged. EKG 12/10 with QTc 537. Avoid QT prolonging meds. Use antiemetics very sparingly 4. TIA: Improved 5. Severe hypokalemia, hypomagnesemia; replaced. Mg better, but hypokalemia persists. Monitor electrolytes and replaced as warrant 6. Acute respiratory failure secondary to cardiac arrest; s/p extubation. 7. Anxiety, depression Justicifation of Admission Dx: Justifications for Admission: Justification of Admission Dx: Yes CHF: Sev. Electrolyte Abnormal REI PERSAUD APRN Dec 13, 2020 10:35
[2020-12-13 10:44] VITALS: BP 154/105
--- NOTE | 2020-12-13 10:50 | PDOC ---
DATE OF SERVICE DATE: 12/13/20 TIME: 10:47 SUBJECTIVE ROS stable, no complaints, states she is ready to be discharged OBJECTIVE Vital Signs Vital Signs Date Time Temp Pulse Resp B/P (MAP) Pulse Ox O2 Delivery O2 Flow Rate FiO2 12/13/20 10:44 74 154/105 (121) 12/13/20 07:00 98.1 18 94 Room Air 98.1 I & 0 Intake and Output 12/13/20 07:00 Intake Total 710 ml Output Total 1155 ml Balance -445 ml Intake Oral 710 ml Output Urine Total 1155 ml # Bowel Movements 2 PHYSICAL EXAM Physical Exam GENERAL: NAD, sitting up in bed HEENT: Normocephalic, atraumatic , OM moist NECK: Supple LUNGS: CTA non labored HEART: S1, S2, no murmurs. ABDOMEN: Soft, nontender, nondistended. GENITOURINARY: No martin EXTREMITIES: No edema, no cyanosis. DERMATOLOGIC: Warm, dry. No generalized rash. Multiple tattoos. NEUROLOGIC: AxOX3, grossly normal DIAGNOSIS/ASSESSMENT Assessment & Plan TIA-ATN: resolved VFIB arrest POA status post CPR. HypoKalemia : reports it is chronic, on PO KCL replacement as OP Replace as indicated HypoMg : Adequate Nausea/ vomiting resolved Hypernatremia: now resolved Acute hypoxic respiratory failure secondary to cardiac arrest. Pyuria urine cultures negative CT A/P 12/11 History of tobacco use. History of Kong's esophagus, reflux esophagitis, hepatic steatosis,Clostridium difficile colitis. COMMENT/RELEVANT DATA Meds Current Medications Medications (Trade) Dose Ordered Sig/Kwaku Start Time Stop Time Status Last Admin Dose Admin Acetaminophen (Tylenol) 650 mg Q4H 12/07/20 08:00 12/08/20 22:07 DC 12/08/20 16:22 650 MG Amiodarone HCl (Cordarone) 300 mg STK-MED ONCE 12/07/20 12:00 12/07/20 15:47 DC Atropine Sulfate (ATROPINE 0.5mg SYRINGE) 0.5 mg PRN Q5MIN PRN 12/09/20 08:45 Cancel Buspirone HCl (Buspar) 30 mg Q8H 12/07/20 08:00 12/08/20 21:06 DC 12/08/20 16:18 30 MG Calcium Carbonate/ Glycine (Tums) 500 mg STK-MED ONCE 12/12/20 17:56 12/12/20 17:56 DC Calcium Gluconate 1000 mg/Sodium Chloride 110 ml @ 220 mls/hr 1X ONCE 12/09/20 14:00 12/09/20 14:29 DC 12/09/20 14:03 220 MLS/HR Calcium/Vitamin D (Oscal D 500mg/ 200uts) 1 tab [id number] 12/10/20 17:00 12/13/20 09:41 1 TAB Cefepime HCl (Maxipime) 2 gm Q12HR 12/08/20 21:30 12/11/20 10:31 DC 12/11/20 08:54 2 GM Chlorhexidine Gluconate (Peridex) 15 ml BID 12/07/20 09:00 12/07/20 18:44 DC 12/07/20 09:00 15 ML Dexmedetomidine HCl 400 mcg/ Sodium Chloride 100 ml @ 0 mls/hr CONT PRN 12/09/20 08:45 12/13/20 03:18 DC Dextrose (Dextrose 50%-Water Syringe) 12.5 gm PRN Q15MIN PRN 12/08/20 10:00 12/08/20 10:04 50 GM Dextrose/Sodium Chloride 1,000 ml @ 75 mls/hr [id number] 12/08/20 13:45 12/08/20 18:42 DC 12/08/20 14:16 75 MLS/HR Diphenhydramine HCl (Benadryl) 50 mg 1X ONCE 12/07/20 05:30 12/07/20 05:31 DC 12/07/20 05:14 50 MG Dopamine HCl/ Dextrose 250 ml @ 13.481 mls/ hr CONT PRN 12/08/20 06:45 12/12/20 14:52 DC Epinephrine HCl (EPINEPHrine SYRINGE) 3 mg STK-MED ONCE 12/07/20 12:00 12/07/20 15:47 DC Famotidine (Pepcid Vial) 20 mg BID 12/07/20 09:00 12/07/20 10:56 DC Fentanyl Citrate (Fentanyl 2ml Vial) 100 mcg STK-MED ONCE 12/12/20 21:07 12/12/20 21:08 DC Glycerin/ Hypromellose/ Polyethylene (Artificial Tears) 1 drop PRN Q15MIN PRN 12/07/20 08:00 12/10/20 21:08 DC Haloperidol Lactate (Haldol Inj) 5 mg 1X ONCE 12/07/20 05:30 12/07/20 05:31 DC 12/07/20 05:14 5 MG Heparin Sodium (Porcine) (Heparin Sodium) 5,000 unit STK-MED ONCE 12/12/20 21:08 12/12/20 21:08 DC Hydralazine HCl (Apresoline Inj) 10 mg PRN Q4HRS PRN 12/11/20 11:30 12/11/20 19:57 10 MG Hydrocortisone Sodium Succinate (Solu-CORTEF) 100 mg STK-MED ONCE 12/12/20 17:56 12/12/20 17:56 DC Ibuprofen (Motrin) 600 mg PRN Q6HRS PRN 12/13/20 07:00 12/13/20 08:59 600 MG Info (Icu Electrolyte Protocol) 1 ea CONT PRN PRN 12/11/20 08:30 12/13/20 03:19 DC Info (Non-Icu Electrolyte Protocol) 1 ea CONT PRN PRN 12/13/20 03:30 Info (Tpn Per Pharmacy) 1 each PRN DAILY PRN 12/11/20 08:30 12/12/20 13:39 DC 12/11/20 12:01 1 EACH Lorazepam (Ativan Inj) 2 mg 1X ONCE 12/12/20 21:30 12/12/20 21:31 DC 12/12/20 21:25 2 MG Magnesium Sulfate 50 ml @ 25 mls/hr PRN DAILY PRN 12/10/20 13:15 Magnesium Sulfate/ Dextrose 100 ml @ 100 mls/hr 1X ONCE 12/08/20 19:00 12/08/20 19:59 DC 12/08/20 18:51 100 MLS/HR Magnesium Sulfate/ Dextrose (Magnesium Sulfate PREMIX 1GM) 1 gm STK-MED ONCE 12/07/20 12:00 12/07/20 15:47 DC Metoclopramide HCl (Reglan Vial) 10 mg 1X ONCE 12/07/20 05:30 12/07/20 05:05 DC Midazolam HCl (Versed) 5 mg STK-MED ONCE 12/07/20 12:00 12/07/20 15:47 DC Morphine Sulfate (Morphine Sulfate) 2 mg PRN Q2HR PRN 12/13/20 07:30 Nicardipine HCl 50 mg/Sodium Chloride 250 ml @ 25 mls/hr CONT PRN 12/11/20 19:15 12/12/20 14:52 DC 12/11/20 19:44 25 MLS/HR Norepinephrine Bitartrate 8 mg/ Dextrose 258 ml @ 13.913 mls/ hr CONT PRN 12/08/20 15:00 12/12/20 14:52 DC 12/08/20 15:11 13.5 MLS/HR Ondansetron HCl (Zofran) 4 mg PRN Q8HRS PRN 12/09/20 13:45 12/09/20 15:37 DC 12/09/20 13:52 4 MG Pantoprazole Sodium (PROTONIX VIAL for IV PUSH) 40 mg DAILYAC 12/11/20 09:00 12/12/20 13:15 DC 12/12/20 08:01 40 MG Pantoprazole Sodium (Protonix) 40 mg DAILYAC 12/13/20 07:30 12/13/20 09:41 40 MG Potassium Chloride/Dextrose/ Sod Cl 1,000 ml @ 75 mls/hr [id number] 12/09/20 11:45 12/11/20 08:23 DC 12/11/20 05:12 75 MLS/HR Potassium Chloride/Sodium Chloride 1,000 ml @ 125 mls/hr Q8H 12/07/20 06:30 12/07/20 14:29 DC 12/07/20 06:30 125 MLS/HR Potassium Chloride/Water 100 ml @ 100 mls/hr Q1HR 12/12/20 08:00 12/12/20 13:59 DC 12/12/20 13:00 100 MLS/HR Potassium Phosphate 10 mmol/ Sodium Chloride 103.3333 ml @ 51.667 m... Q2H 12/07/20 12:00 12/07/20 15:59 DC 12/07/20 13:43 51.667 MLS/HR Potassium Chloride (Klor-Con) 40 meq 1X ONCE 12/13/20 09:00 12/13/20 09:06 DC 12/13/20 09:41 40 MEQ Prochlorperazine Edisylate (Compazine) 10 mg STK-MED ONCE 12/13/20 00:24 12/13/20 00:25 DC Promethazine HCl (Phenergan) 12.5 mg PRN Q6HRS PRN 12/09/20 16:45 12/09/20 17:07 DC Propofol 100 ml @ 0 mls/hr CONT PRN 12/07/20 08:00 12/10/20 21:08 DC 12/09/20 04:08 13 MLS/HR Ringer's Solution 500 ml @ 1,000 mls/hr 1X ONCE 12/07/20 05:30 12/07/20 05:59 DC 12/07/20 05:13 1,000 MLS/HR Sodium Acetate 50 meq/Potassium Chloride 50 meq/ Potassium Phosphate 13.6 mmol/Magnesium Sulfate 10 meq/ Calcium Gluconate 10 meq/ Multivitamins 5 ml/Zinc/Copper/ Manganese/ Selenium 1 ml/ Total Parenteral Nutrition/Amino Acids/Dextrose/ Fat Emulsion Intravenous 1,512 ml @ 63 mls/hr TPN CONT 12/11/20 22:00 12/12/20 21:59 DC 12/11/20 22:48 63 MLS/HR Sodium Bicarbonate (Sodium Bicarb Adult 8.4% Syr) 50 meq STK-MED ONCE 12/07/20 12:00 12/07/20 15:47 DC Sodium Chloride 500 ml @ 500 mls/hr 1X PRN PRN 12/09/20 08:45 Vecuronium [place] (Norcuron Bolus) 6 mg PRN Q1HR PRN 12/07/20 08:00 12/10/20 21:08 DC 12/07/20 08:47 6 MG Lab Laboratory Tests Test 12/12/20 20:05 12/13/20 06:04 Potassium Level 3.7 mmol/L (3.5-5.1) 3.4 mmol/L (3.5-5.1) Sodium Level 142 mmol/L (136-145) Chloride Level 106 mmol/L (98-107) Carbon Dioxide Level 29 mmol/L (21-32) Anion Gap 7 (6-14) Blood Urea Nitrogen 6 mg/dL (7-20) Creatinine 0.6 mg/dL (0.6-1.0) Estimated GFR (Cockcroft-Gault) 113.1 Glucose Level 78 mg/dL (70-99) Calcium Level 7.9 mg/dL (8.5-10.1) Phosphorus Level 3.2 mg/dL (2.6-4.7) Albumin 2.3 g/dL (3.4-5.0) Results All relevant outside records, renal labs, imaging studies, telemetry/EKG's were reviewed. Justicifation of Admission Dx: Justifications for Admission: Justification of Admission Dx: Yes CHF: Sev. Electrolyte Abnormal TRISTEN ESTEBAN MD Dec 13, 2020 10:50
[2020-12-13] MEDS ORDERED: POTA20TA4 PO (11:06)
[2020-12-13] MEDS ORDERED: MAGN400T44 PO (11:06)
[2020-12-13] MEDS ORDERED: METOPROLOL TART IMMED RELEASE 25 MG TABLET. PO ONE (11:15)
--- NOTE | 2020-12-13 11:40 | PDOC ---
Date of Service: DATE: 12/13/20 TIME: 11:37 Subjective: Subjective: Having EKG repeated before DC. No GI issues so far - hasn't taken Reglan here. Doesn't really remember taking e-mycin in the past. Objective: Vital Signs: Vital Signs Date Time Temp Pulse Resp B/P (MAP) Pulse Ox O2 Delivery O2 Flow Rate FiO2 12/13/20 10:44 74 154/105 (121) 12/13/20 07:00 98.1 18 94 Room Air 98.1 PE: GEN: NAD - in WC in hallway, father present NEURO/PSYCH: A & O 3 A/P: S/p arrest Hypokalemia - chronic H/o GERD, gastroparesis, C Diff, hepatic steatosis -- Asked by cardiology and nurse to review discharge meds - advised to NOT resume Reglan. Difficult situation, no good options for gastroparesis treatment. No n/v or abd pain issues here. Discussed gastroparesis diet w/ pt. Follow-up w/ Dr. Xavier in clinic. We discussed need to closely monitor electrolytes if n/v recurrent. Justicifation of Admission Dx: Justifications for Admission: Justification of Admission Dx: Yes CHF: Sev. Electrolyte Abnormal ARUN MILNER Dec 13, 2020 11:40
--- NOTE | 2020-12-13 12:03 | EKG ---
[facility] [address] [place] [address] Test Date: 2020-12-13 Test Time: 12:00:15 Pat Name: GENEVIEVE ALANIZ Department: Room: 211 1 Gender: F [employer] Operator: SUSANNE : 1985 Requested By: ELEANOR MILNER Order Number: [id number] Reading MD: Measurements Intervals [place] Rate: 58 P: 0 WI: 114 QRS: -28 QRSD: 70 T: -27 QT: 448 QTc: 444 Interpretive Statements SINUS RHYTHM LEFTWARD AXIS T ABNORMALITY IN ANTEROSEPTAL LEADS INFERIOR LEADS ABNORMAL ECG RI6.02 Compared to ECG 12/10/2020 15:40:49 T-wave abnormality now present Left anterior fascicular block no longer present Right bundle-branch block no longer present Bifascicular block no longer present
[2020-12-13] MEDS ORDERED: METO25TA4 PO (12:07)
--- NOTE | 2020-12-13 12:59 | NUR ---
Discharge Note: GENEVIEVE ALANIZ [address] [place] [address] Discharge instructions and discharge home medications reviewed with Patient and a copy given. All questions have been answered and understanding verbalized. The following instructions and handouts were given: gastroparesis education, hypokalemia education, and hypomagnesemia education. This RN educated on the importance of using her walker at home. see medical record for copies of scripts including magnesium and potassium. Discontinued central line in the R IJ TL with no complications. Direct pressure held for 10 minutes. Patient discharged home via wheelchair with her father.
--- NOTE | 2020-12-13 13:04 | PDOC ---
CARDIO Progress Notes Date and Time Date of Service 12/13/2020 Time of Evaluation 1150 Subjective Subjective: No Chest Pain, No shortness of breath, No Palpitations Vitals Vitals Vital Signs Date Time Temp Pulse Resp B/P (MAP) Pulse Ox O2 Delivery O2 Flow Rate FiO2 12/13/20 10:44 74 154/105 (121) 12/13/20 07:00 98.1 18 94 Room Air 98.1 Weight Weight [ ] Input and Output Intake and Output Intake and Output 12/13/20 07:00 Intake Total 710 ml Output Total 1155 ml Balance -445 ml Intake Oral 710 ml Output Urine Total 1155 ml # Bowel Movements 2 Laboratory Labs Laboratory Tests Test 12/12/20 20:05 12/13/20 06:04 Potassium Level 3.7 mmol/L (3.5-5.1) 3.4 mmol/L (3.5-5.1) Sodium Level 142 mmol/L (136-145) Chloride Level 106 mmol/L (98-107) Carbon Dioxide Level 29 mmol/L (21-32) Anion Gap 7 (6-14) Blood Urea Nitrogen 6 mg/dL (7-20) Creatinine 0.6 mg/dL (0.6-1.0) Estimated GFR (Cockcroft-Gault) 113.1 Glucose Level 78 mg/dL (70-99) Calcium Level 7.9 mg/dL (8.5-10.1) Phosphorus Level 3.2 mg/dL (2.6-4.7) Albumin 2.3 g/dL (3.4-5.0) Microbiology Micro Microbiology 12/08/20 Blood Culture - Preliminary, Resulted NO GROWTH AFTER 4 DAYS 12/07/20 Urine Culture - Final, Complete Physical Exam HEENT: Neck Supple W Full Motion Chest: Symmetric LUNGS: Other (diminished bases) Heart: S1S2, RRR (SR), no murmurs Abdomen: Soft N/T Extremities: No Edema Neurology: alert, oriented, follow commands Assessment Assessment 1. Nausea/vomiting, gastroparesis; as per gastroenterology team. 2. VFIB arrest in the setting of significant electrolyte abnormalities and QT prolongation 3. Acute respiratory failure in the setting of #2. Post extubation 4. Prolonged QTc: peaked at 537. Repeat EKG revealed down to 444 5. Arrhythmia: Also noted with intermittent RBBB and possibly AFIB in the setting of lyte issues and post Vfib arrest. Now SR with narrow QRS. 6. TIA: prerenal. resolved 7. Severe hypokalemia, hypomagnesemia: Mg resolved 8. Anxiety, depression Recommendations Pt and family deferred LHC. Per TTE EF and WM nml. Ventricular arrhythmia suspected primarily from QT prolongation with combination of meds, low K and Mg. Moving forward. she will need to see her PCP or psychiatrist in regards to possible alternative to celexa and TCA agent such as elavil taken for her depression. Also would defer antiemetic therapy alternatives to GI. Advised pt to come to ED if nausea and vomiting recurs for proper IVF and lyte replacement. K Rx has been given. However given this significant arrhythmia will also consider for outpt stress test. BP is currently on the labile side and will start on metoprolol. Will also arrange for 2 week MCOT and note any further paroxysmal arrhythmias. She is to follow up in our office in 2 weeks. Will provide EP referral as an outpt. Justicifation of Admission Dx: Justifications for Admission: Justification of Admission Dx: Yes CHF: Sev. Electrolyte Abnormal ELEANOR MILNER CERTIFIED OPTICIAN Dec 13, 2020 13:04
--- NOTE | 2020-12-13 15:40 | DS ---
DATE OF DISCHARGE: 12/13/2020 ADMISSION DIAGNOSES: Cardiac arrest with ventricular fibrillation, hypomagnesemia, hypokalemia. DISCHARGE DIAGNOSES: Resolving respiratory failure, resolving ventricular fibrillation, resolving hypokalemia, resolving hypomagnesemia, gastroesophageal reflux disease, hyperlipidemia. CONSULTS: Nephrology, Infectious Disease, Neurology, Cardiology, GI and Pulmonary. PROCEDURES: None. 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 Basically, she has been having some issues with gastroparesis and vomiting and stated that she became very weak and then she coded and was resuscitated. While in the ER, she had torsades. We replaced her magnesium. She was intubated and sent to the ICU. Over the next few days, we were able to get her extubated. Over the past couple of days, she has returned to her baseline. Today, I saw and examined her, she is doing much better and wants to go home. We plan to discharge with close outpatient followup. DISPOSITION: Home. ACTIVITY: As tolerated. DIET: Low sodium. MEDICATIONS: Please see the MRAD. Amitriptyline 10 a day, Celexa 20 a day, Nexium 40 a day, fenofibrate 134 a day, magnesium oxide 400 a day, metoprolol 25 b.i.d., p.r.n. Zofran, potassium 20 a day and Compazine 10 q.6h. p.r.n. Total time 31 minutes. [place] DO DR: YSOELIN/rachel JOB#: [id number] / [id number]
[2020-12-13] MEDS ORDERED: METOPROLOL TART IMMED RELEASE 25 MG TABLET. PO SCH (21:00)
== END 2020-12-13 12:22 | disposition home or self-care (01) | DRG 871 ==
LOC: ER 04:43 → 1 WEST ICU 06:37 → 2 NORTH 12-13 03:00
PROVIDERS: ADMIT Internal Medicine; ATTEND Internal Medicine
PROC: 5A1945Z Respiratory Ventilation, 24-96 Consecutive Hours (ICD-10-PCS; principal; 2020-12-07)
PROC: 0BH17EZ Insertion of Endotracheal Airway into Trachea, Via Natural or Artificial Opening (ICD-10-PCS; 2020-12-07)
PROC: 02HV33Z Insertion of Infusion Device into Superior Vena Cava, Percutaneous Approach (ICD-10-PCS; 2020-12-07)
PROC: B548ZZA Ultrasonography of Superior Vena Cava, Guidance (ICD-10-PCS; 2020-12-07)
PROC: 5A12012 Performance of Cardiac Output, Single, Manual (ICD-10-PCS; 2020-12-07)
DX: A41.9 Sepsis, unspecified organism (principal); I49.01 Ventricular fibrillation; J96.01 Acute respiratory failure with hypoxia; N17.0 Acute kidney failure with tubular necrosis; I46.9 Cardiac arrest, cause unspecified; E27.40 Unspecified adrenocortical insufficiency; G93.1 Anoxic brain damage, not elsewhere classified; N39.0 Urinary tract infection, site not specified; E87.0 Hyperosmolality and hypernatremia; E78.00 Pure hypercholesterolemia, unspecified; E78.1 Pure hyperglyceridemia; E78.5 Hyperlipidemia, unspecified; E83.39 Other disorders of phosphorus metabolism; E83.42 Hypomagnesemia; E83.51 Hypocalcemia; E87.6 Hypokalemia; F17.210 Nicotine dependence, cigarettes, uncomplicated; F41.8 Other specified anxiety disorders; I45.10 Unspecified right bundle-branch block; I48.91 Unspecified atrial fibrillation; K21.9 Gastro-esophageal reflux disease without esophagitis; K22.70 Barrett's esophagus without dysplasia; K31.84 Gastroparesis; K76.0 Fatty (change of) liver, not elsewhere classified; M19.071 Primary osteoarthritis, right ankle and foot; M19.072 Primary osteoarthritis, left ankle and foot; Z20.822 Contact with and (suspected) exposure to COVID-19; Z80.0 Family history of malignant neoplasm of digestive organs; Z82.49 Family history of ischemic heart disease and other diseases of the circulatory system; Z90.49 Acquired absence of other specified parts of digestive tract
CPT/HCPCS: 31500; 36415; 36556; 36600; 70450; 71045; 74022; 74176; 76937; 80048; 80053; 80069; 81001; 82306; 82310; 82436; 82533; 82570; 82784; 82805; 82962; 83690; 83735; 84100; 84132; 84133; 84145; 84300; 84439; 84443; 84478; 84484; 85007; 85025; 85379; 85610; 85730; 86334; 86335; 86481; 86703; 87040; 87086; 87426; 93005; 93306; 94002; 94003; 96361; 96365; 96366; 96375; C1892; C9113; J0171; J0282; J0360; J0610; J0692; J0780; J1200; J1630; J1644; J1720; J2060; J2250; J2405; J2704; J3010; J3475; J3480; J3490; J7030; J7042; J7050; J7060; J7120; U0003; U0005; 92526-GN; 97110-GP; 97116-GP; 97530-GO; 97530-GP; 97535-GO; 99291-25; G0378